=== PATIENT | male | born 1935 | race Caucasian/White ===

== ENCOUNTER 2016-08-16 14:55 | Emergency (ER) | payer OTHER ==
[~2016-08-16] VITALS: Ht 172.7 cm; Wt 108.1 kg
[~2016-08-16 14:55] MED LIST: ATOR-54 PO; BISA10SU38 PR; CALC0.2510 PO; CALC667C4 PO; CALCTAB13 PO; CLC100 PO; CYAN10005 PO; FOLI1TAB7 PO; FRRS300 PO; TAMS0.4C59 PO; [UNRECOGNIZED DRUG - CODE] PO; [UNRECOGNIZED DRUG - OTHER] PO
[2016-08-16 15:00] VITALS: Ht 172.7 cm; Wt 108.1 kg
[2016-08-16] MEDS ORDERED: MoRPHine SULFATE 4 MG/ML 1 ML CARP\\VIAL IM STA (16:03)
--- NOTE | 2016-08-16 17:05 | DIAGNOSTIC IMAGING REPORT ---
LEFT HUMERUS 5 VIEWS ROUTINE CLINICAL HISTORY: Left humeral pain status post trauma COMPARISON: None. DISCUSSION: No dislocation is visualized. There is impacted proximal ureteral neck fracture demonstrating 17 mm of displacement. IMPRESSION: Acute impacted humeral neck fracture demonstrating 17 mm of displacement. No dislocation identified. Electronically signed by: Severo Candelario M.D. 08/16/2016 5:04 PM Dictated Date/Time: 08/16/2016 5:03 PM
--- NOTE | 2016-08-16 17:07 | DIAGNOSTIC IMAGING REPORT ---
LEFT RIBS UNILATERAL WITH PA CHEST CLINICAL HISTORY: Left rib pain status post trauma COMPARISON STUDY: No previous studies for comparison. FINDINGS: There are postsurgical changes of a midline sternotomy. There is a right subclavian dual-chamber central venous pacemaker present. The heart is enlarged. No pneumothorax is visualized. There are fractures of left fifth and sixth ribs. IMPRESSION: 1. Left fifth and sixth rib fractures 2. No pneumothorax 3. Proximal left humeral fracture. Electronically signed by: Severo Candelario M.D. 08/16/2016 5:06 PM Dictated Date/Time: 08/16/2016 5:04 PM
[2016-08-16] MEDS ORDERED: MoRPHine SULFATE 10 MG/ML CARP/VIAL IM STA (17:12)
[2016-08-16] MEDS ORDERED: OXYC-106 PO ×2 (17:20→18:20)
--- NOTE | 2016-08-16 17:22 | EMERGENCY ROOM VISIT NOTE ---
History Report prepared by Ynes: Frankie Zuniga Under the Supervision of: Dr. Alvarez Rouse D.O. First contact with patient: 15:51 Chief Complaint: FALL Stated Complaint: FALL History of Present Illness The patient is an 81 year old male who presents to the Emergency Room with complaints of an acute fall that occurred earlier today. The patient tripped over a rug in [facility] and lost his balance. The patient has left face, rib, and arm pain s/p fall. The pain is worsened with movement. The patient did not lose consciousness. He denies any neck, abdominal pain, or leg pain.The patient had dialysis prior to the fall. His dialysis port is on the left side. The patient is not on any blood thinners. The patient is s/p CABG. Source of History: patient Onset: earlier today Position: other (global) Quality: other (fall) Timing: other (acute) Associated Symptoms: No LOC, No abdominal pain, No neck pain Review of Systems See HPI for pertinent positives & negatives. A total of 10 systems reviewed and were otherwise negative. Past Medical & Surgical Medical Problems: (1) Heart disease (2) HTN (hypertension) (3) Kidney disease (4) Kidney stone Surgical Problems: (1) S/P CABG (coronary artery bypass graft) Family History FHx: cancer FHx: heart disease FHx: hypertension FHx: kidney disease Social History Smoking Status: Former Smoker Alcohol Use: none Drug Use: none Marital Status: Housing Status: lives with significant other Occupation Status: retired Current/Historical Medications Scheduled Atorvastatin (Lipitor), 20 MG PO QPM Bisacodyl (Dulcolax), 1 SUPP OK DAILY PRN Bisacodyl (Dulcolax Unknown Dose), 1 TABLET PO BID Calcitriol (Rocaltrol Cap), 0.25 MCG PO DAILY Calcium Acetate (Phoslo 667 Mg), 2 TABLETS PO TIDM Calcium Carbonate-Vitamin D (Os-Kai 500 Plus D), 2,500 MG PO DAILY Cholecalciferol (Vitamin D3), Unknown Dose PO UD Cyanocobalamin (Vitamin B-12), 1,000 MCG PO DAILY Docusate Sodium (Colace *), 100 MG PO BID Ferrous Sulfate (Iron Supplement *), 325 MG PO DAILY Folic Acid (Folvite), 2 MG PO DAILY Tamsulosin Hcl (Flomax), 0.4 MG PO DAILY [Hlt10], 10 MG PO TID Scheduled PRN Oxycodone/Acetaminophen 10MG/325MG (Percocet 10MG/325MG), 1 TAB PO Q4H PRN for Pain Allergies Coded Allergies: No Known Allergies (Verified , `, 10/22/11) Physical Exam Vital Signs Date Time Temp Pulse Resp B/P Pulse Ox O2 Delivery O2 Flow Rate FiO2 08/16/16 16:07 78 12 159/66 98 Room Air 08/16/16 15:14 78 08/16/16 15:00 36.6 83 18 171/73 96 Room Air Physical Exam CONSTITUTIONAL/VITAL SIGNS: Reviewed / noted above. GENERAL: Non-toxic in appearance. INTEGUMENTARY: Warm, dry, and [place]. HEAD: Normocephalic. EYES: without scleral icterus or trauma. ENT/OROPHARYNX: clear and moist. LYMPHADENOPATHY/NECK: Is supple without lymphadenopathy or meningismus. RESPIRATORY: Lungs clear and equal. CARDIOVASCULAR: Regular rate and rhythm. GI/ABDOMEN: Soft and nontender. No organomegaly or pulsatile mass. No rebound or guarding. Normal bowel sounds. EXTREMITIES: Warm and well perfused. BACK: No CVA tenderness. NEUROLOGICAL: Intact without focal deficits. PSYCHIATRIC: normal affect. MUSCULOSKELETAL: Normally developed with good muscle tone. Tender to palpation over the left shoulder and left lower rib cage. Medical Decision & Procedures ER Provider Diagnostic Interpretation: X ray results and stated below per my interpretation and radiology interpretation. LEFT RIBS UNILATERAL WITH PA CHEST CLINICAL HISTORY: Left rib pain status post trauma COMPARISON STUDY: No previous studies for comparison. FINDINGS: There are postsurgical changes of a midline sternotomy. There is a right subclavian dual-chamber central venous pacemaker present. The heart is enlarged. No pneumothorax is visualized. There are fractures of left fifth and sixth ribs. IMPRESSION: 1. Left fifth and sixth rib fractures 2. No pneumothorax 3. Proximal left humeral fracture. Electronically signed by: Severo Candelario M.D. 08/16/2016 5:06 PM Dictated Date/Time: 08/16/2016 5:04 PM LEFT HUMERUS 5 VIEWS ROUTINE CLINICAL HISTORY: Left humeral pain status post trauma COMPARISON: None. DISCUSSION: No dislocation is visualized. There is impacted proximal ureteral neck fracture demonstrating 17 mm of displacement. IMPRESSION: Acute impacted humeral neck fracture demonstrating 17 mm of displacement. No dislocation identified. Electronically signed by: Severo Candelario M.D. 08/16/2016 5:04 PM Dictated Date/Time: 08/16/2016 5:03 PM Laboratory Results Test 08/16/16 15:51 Creatine Kinase MB Ratio (0-3.0) Laboratory results as stated above per my review. Medications Administered Medications (Trade) Dose Ordered Sig/Daniel Route Start Time Stop Time Status Last Admin Dose Admin Morphine Sulfate (MoRPHine SULFATE INJ) 4 mg NOW STAT IM 08/16/16 16:03 08/16/16 16:05 DC 08/16/16 16:10 4 MG Morphine Sulfate (MoRPHine SULFATE INJ) 6 mg NOW STAT IM 08/16/16 17:12 08/16/16 17:14 DC 08/16/16 17:28 6 MG ECG Indication: other (fall) Rate (beats per minute): 80 Rhythm: other (paced ventricular rhythm) Findings: no acute ischemic change, no ectopy ED Course 1555: Previous medical records were reviewed. The patient was evaluated in room C9. A complete history and physical examination was performed. 1603: Morphine Sulfate 4 mg IM. 1712: Morphine Sulfate 6 mg IM. 1740: Reassessed the patient. Discussed the findings with him. He verbalized understanding and agreement. The patient is ready for discharge. Medical Decision Differential includes close head injury, intracranial bleed, facial trauma, cervical spine trauma, chest and thoracic trauma, abdominal and intra-abdominal trauma, spine neurologic trauma, extremity trauma. This is an 81-year-old male who presents to the ED with a chief complaint of left arm shoulder and left anterior ribs injuries related to a fall. The patient states that he was walking into [facility] when he tripped on the rug causing himself to fall forward onto his left arm. He suffered a small abrasion to the left supraorbital area. Denies loss of consciousness. Denies lightheadedness or dizziness or presyncopal symptoms. The patient denies any other symptoms. Exam of the left arm reveals tenderness of the proximal humerus region with palpation and any movement. Distally he is neurovascularly intact. At the elbow joint and distal to this there is no pain or evidence of injury. The patient has a left arm fistula in place for dialysis. Exam of the chest wall reveals some tenderness to palpation the left lower ribs area. The patient was told results the test. He was treated with IM morphine. He was placed in a left arm/shoulder sling. The patient is felt to be stable for discharge and orthopedic outpatient follow-up. Percocet prescribed. Impression Primary Impression: Fall Additional Impressions: Multiple fractures of ribs, left side, initial encounter for closed fracture Fracture, humerus, anatomical neck Scribe Attestation The scribe's documentation has been prepared under my direction and personally reviewed by me in its entirety. I confirm that the note above accurately reflects all work, treatment, procedures, and medical decision making performed by me. Departure Information Dispostion Home / Self-Care Prescriptions Oxycodone/Acetaminophen 10MG/325MG (PERCOCET 10MG/325MG) Tab 1 TAB PO Q4H Y for Pain, #30 TAB Prov: Alvarez Rouse D.O. 08/16/16 Referrals Virgil Johnson M.D. (MEDICAL) (PCP) Yovany Rudolph M.D. Forms HOME CARE DOCUMENTATION FORM, IMPORTANT VISIT INFORMATION Patient Instructions ED Fx Rib, ED Fx Upper Ext, My [facility] Additional Instructions Your x-ray reveals a proximal humerus fracture near the shoulder. He also have a left fifth and sixth rib fracture. Percocet as prescribed. No driving within 6 hours of use. Do not take additional Tylenol while taking Percocet. Follow-up with orthopedics. Call tomorrow for appointment. Dr. Rudolph listed. Problem Qualifiers Primary Impression: Fall Encounter type: initial encounter Qualified Codes: W19.XXXA - Unspecified fall, initial encounter
[2016-08-16] MEDS ORDERED: TAMS0.4C38 PO (18:02)
[2016-08-16] MEDS ORDERED: CHOL1000 PO (18:04)
[2016-08-16 18:29] VITALS: BP 109/55; PULSE 83; TEMP 36.6; O2SAT 92
[2016-08-17] MEDS ORDERED: OXYC-106 PO (11:55)
[2016-09-07] MEDS ORDERED: DSY50 PO (14:27)
[2016-09-07] MEDS ORDERED: LPR25 PO (14:27)
[2016-09-07] MEDS ORDERED: TYL325X PO (14:27)
[2016-10-27] MEDS ORDERED: SODIENE PR (07:48)
[2016-10-27] MEDS ORDERED: BISA10SU38 PR (07:48)
[2016-10-27] MEDS ORDERED: ATOR-22 PO (07:48)
[2016-10-27] MEDS ORDERED: HYDR25SU20 PR (07:48)
[2016-10-27] MEDS ORDERED: MOML PO (07:48)
[2016-10-27] MEDS ORDERED: DICY10CA55 PO (07:48)
[2016-10-27] MEDS ORDERED: B-CO1CAP17 PO (07:48)
[2016-10-27] MEDS ORDERED: LOSA25TA18 PO (07:48)
[2016-10-27] MEDS ORDERED: TAMS0.4C38 PO (07:48)
[2016-10-27] MEDS ORDERED: PSYL48.59 PO (07:48)
[2016-10-27] MEDS ORDERED: ACET325T96 PO (07:48)
[2016-10-27] MEDS ORDERED: CALC667C4 PO (07:48)
[2016-10-27] MEDS ORDERED: TRAZ50TA35 PO (07:48)
[2016-10-27] MEDS ORDERED: CHOL1000 PO (07:48)
[2016-10-27] MEDS ORDERED: OXYC1TAB3 PO (07:48)
[2016-10-27] MEDS ORDERED: METO50TA7 PO (07:48)
[2016-10-27] MEDS ORDERED: SUPPLEMENT SHAKE PO (07:48)
[2017-01-06] MEDS ORDERED: METO1TAB31 PO (21:25)
== END 2016-08-16 18:33 | disposition home or self-care (01) ==
LOC: EDBD 14:55 → C.EDC 14:55
DX: S22.42XA Multiple fractures of ribs, left side, initial encounter for closed fracture (principal); S42.202A Unspecified fracture of upper end of left humerus, initial encounter for closed fracture; S00.81XA Abrasion of other part of head, initial encounter; W01.0XXA Fall on same level from slipping, tripping and stumbling without subsequent striking against object, initial encounter; Y92.89 Other specified places as the place of occurrence of the external cause; I10 Essential (primary) hypertension; I51.9 Heart disease, unspecified; Z87.442 Personal history of urinary calculi; Z95.1 Presence of aortocoronary bypass graft; Z87.891 Personal history of nicotine dependence; Z79.899 Other long term (current) drug therapy; Z80.9 Family history of malignant neoplasm, unspecified; Z82.49 Family history of ischemic heart disease and other diseases of the circulatory system; Z84.1 Family history of disorders of kidney and ureter

== ENCOUNTER 2016-08-17 11:32 | Inpatient (IN) | payer OTHER ==
[~2016-08-17] VITALS: Ht 175.3 cm; Wt 110.0 kg
[~2016-08-17 11:32] MED LIST changes: -BISA10SU38 PR; -CALC0.2510 PO; -CALCTAB13 PO; +CHOL1000 PO; -CLC100 PO; -CYAN10005 PO; -FOLI1TAB7 PO; -FRRS300 PO; +OXYC-106 PO; +TAMS0.4C38 PO; -TAMS0.4C59 PO; -[UNRECOGNIZED DRUG - CODE] PO; -[UNRECOGNIZED DRUG - OTHER] PO
[2016-08-17] MEDS ORDERED: OXYC-106 PO (11:55)
[2016-08-17] MEDS ORDERED: ONDANSETRON INJ 2 MG/ML 2 ML VIAL IV STA (12:19)
--- NOTE | 2016-08-17 12:33 | DIAGNOSTIC IMAGING REPORT ---
CHEST ONE VIEW PORTABLE CLINICAL HISTORY: EVALUATE ALTERED MENTAL STATUS/WEAKNESS mental status change COMPARISON STUDY: 01/08/2012 FINDINGS: Moderate stable cardia megaly. Intraosseous thoracic aorta unchanged. Interval removal of the left-sided PermCath. Permanent bipolar cardiac pacer in good position. Lungs are considered generally clear. Slight chronic fullness of pulmonary vasculature. IMPRESSION: Chronic and postoperative change. No acute process. Electronically signed by: Romaine Fine M.D. 08/17/2016 12:32 PM Dictated Date/Time: 08/17/2016 12:31 PM
[2016-08-17 13:00] LABS: BASO % 0.1 %; BASO ABS # 0.01 K/uL (0-0.2); COMPLETE YES; EOS % 4.5 %; HEMATOCRIT 31.3 % (42-52); IG% 0.1 %; LYMPH % 15.1 %; LYMPH ABS # 1.14 K/uL (1.2-3.4); MEAN CELL VOLUME 76.7 fL (80-100); MEAN CORPUSCULAR HEMOGLOBIN 24.3 pg (25-34); MEAN CORPUSCULAR HGB CONC 31.6 g/dl (32-36); MEAN PLATELET VOLUME 10.7 fL (7.4-10.4); MONO % 6.8 %; NEUT % 73.4 %; PLATELET COUNT 148 K/uL (130-400); RED BLOOD COUNT 4.08 M/uL (4.7-6.1); WHITE BLOOD COUNT 7.54 K/uL (4.8-10.8)
[2016-08-17 13:09] LABS: INR 1.1 (0.9-1.1); PARTIAL THROMBOPLASTIN RATIO 1.1
[2016-08-17 13:28] LABS: ALB/GLOB RATIO 0.9 (0.9-2); BUN/CREATININE RATIO 4.7 (10-20); CREATININE 4.5 mg/dl (0.60-1.40); POTASSIUM 4.2 mmol/L (3.5-5.1)
[2016-08-17] MEDS ORDERED: OXYCODONE/ACETAMINOPHEN 10/325MG TAB ONE (14:09)
--- NOTE | 2016-08-17 15:56 | ORTHOPEDIC CONSULTATION ---
DATE OF CONSULTATION: 08/17/2016 DATE OF CONSULTATION: 08/17/2016. CHIEF COMPLAINT: Left shoulder pain, rib pain. HISTORY OF PRESENT ILLNESS: Mr. Poon is a delightful gentleman I am meeting him for the first time. He is 81 years of age. He suffered a fall yesterday at [employer] [facility] [employer], suffered acute injury to his left shoulder and left left rib area. He evidently tripped over a rug and lost his balance. He suffered injury to the face, arm, and ribs with the fall. The pain has worsened over the course of time. He came into the Emergency Room yesterday, the date of injury, evaluated and treated last sent home. The patient got home late last night about 7 or 8 o'clock and it was determined he really could not function at home, it was difficult to be taken care of. He had significant pain. He was hard to mobilize. He was then brought back into the Emergency Room today the 17 of August and evaluated and treated. I have determined her after careful evaluation that he needs longterm, rehab, subacute type care. [facility]. PAST MEDICAL HISTORY: Positive for heart disease, obesity, hypertension, kidney disease, he is on dialysis. He has also had bypass surgery, coronary artery. FAMILY HISTORY: Carcinoma, hypertension. SOCIAL HISTORY: Nonsmoker, non-ETOH user. and lives with his . He is retired. Several of his sons are with him here today. SCHEDULED MEDICATIONS: Lipitor, Dulcolax, rocaltrol capsule which is Calcitriol, vitamin D, Colace, iron supplement, Flomax. Scheduled p.r.n. medications Percocet or oxycodone 1-2 every 4-6 hours for pain. Given to him from the Emergency Room yesterday. ALLERGIES: None known. REVIEW OF SYSTEMS: Denies any head injury, blurred vision, double vision, trauma. Denies any shortness of breath, chest pain. Denies nausea, vomiting, urgency, frequency, dysuria. His major review is his orthopedic musculoskeletal issue. PHYSICAL EXAMINATION: VITAL SIGNS: 149/66, respirations 18, pulse ox 98, pulse 78, 36.6 temperature. GENERAL: He is grossly alert, oriented and cooperative, pleasant. HEAD, EYES, EARS, NOSE, AND THROAT: Pupils react to light and accommodation. Nose and throat clear. No head trauma, no eye trauma. LUNGS: Clear per the nursing notes. I did not auscultate him here today. ABDOMEN: Soft, nontender. X-rays demonstrate a 2-part left proximal humerus fracture and some rib fractures on the left hand side. He also has post-surgical changes consistent with a midline sternotomy from his coronary artery bypass surgery. IMPRESSION: Delightful young gentleman, 81 years of age with some comorbidities, now with the trauma of the 5th and 6th rib fractures on the left, fortunately no pneumothorax, and a left proximal humerus fracture, 2-part injury. DISPOSITION: He is in the Emergency Room now. I think it is appropriate for him to be in the Emergency Room. He does not need surgical intervention, at least currently. I think this can be treated nonoperatively for a period of time, hopefully forever and go on to heal. I also recommend [facility] transfer for rehab and also dialysis. The patient is on dialysis and both can be covered at [facility]. Will follow him and then he should see in our office, Dr. Juanjo Jacinto for followup. I would recommend that followup to me in approximately 10 days.
--- NOTE | 2016-08-17 17:16 | EMERGENCY ROOM VISIT NOTE ---
History Report prepared by Ynes: Frankie Zuniga Under the Supervision of: Dr. Star Dodge M.D. First contact with patient: 11:47 Chief Complaint: ARM PAIN Stated Complaint: ARM PAIN History of Present Illness The patient is an 81 year old male who presents to the Emergency Room with complaints of persistent severe left arm pain since yesterday. The pain is significantly worsened with movement. The patient also has left rib pain. The patient was in the ED yesterday s/p fall diagnosed with a left humeral head fracture and two left rib fractures. 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 He fell after tripping over a rug in [facility] yesterday. The patient has not had any new falls. He came to the ED today because he cannot manage himself at home at this time. Source of History: patient Onset: yesterday Position: arm (left) Timing: other (persistent) Modifying Factors (Worsening): movement Associated Symptoms: + nausea Review of Systems See HPI for pertinent positives & negatives. A total of 10 systems reviewed and were otherwise negative. Past Medical & Surgical Medical Problems: (1) Ambulatory dysfunction (2) Heart disease (3) HTN (hypertension) (4) Kidney disease (5) Kidney stone Surgical Problems: (1) S/P CABG (coronary artery bypass graft) Family History FHx: cancer FHx: heart disease FHx: hypertension FHx: kidney disease Social History Smoking Status: Never Smoker Alcohol Use: none Drug Use: none Marital Status: Housing Status: lives with significant other Occupation Status: retired Current/Historical Medications Scheduled Atorvastatin (Lipitor), 20 MG PO QPM Calcium Acetate (Phoslo 667 Mg), 2 TABLETS PO TIDM Cholecalciferol (Vitamin D3), Unknown Dose PO UD Tamsulosin Hcl (Flomax), 0.4 MG PO DAILY Scheduled PRN Oxycodone/Acetaminophen 10MG/325MG (Percocet 10MG/325MG), 1 TAB PO Q4H PRN for Pain Allergies Coded Allergies: No Known Allergies (Verified , `, 10/22/11) Physical Exam Vital Signs Date Time Temp Pulse Resp B/P Pulse Ox O2 Delivery O2 Flow Rate FiO2 08/17/16 15:22 86 15 08/17/16 15:17 86 19 08/17/16 15:12 83 13 08/17/16 15:07 87 16 08/17/16 15:02 84 18 92 08/17/16 14:57 83 11 95 08/17/16 14:52 81 18 93 08/17/16 14:47 83 17 85 08/17/16 14:42 81 15 97 08/17/16 14:37 82 15 84 08/17/16 14:32 82 15 95 08/17/16 14:27 82 16 85 08/17/16 14:22 86 16 86 08/17/16 14:17 83 14 92 08/17/16 14:12 86 20 87 08/17/16 14:07 83 20 90 08/17/16 14:02 83 18 90 08/17/16 13:57 83 16 94 08/17/16 13:52 86 20 87 08/17/16 13:47 84 17 90 08/17/16 13:43 128/53 08/17/16 13:42 81 18 92 08/17/16 13:37 84 15 90 08/17/16 13:32 84 21 93 08/17/16 13:27 92 18 08/17/16 13:22 93 22 08/17/16 13:21 111/59 08/17/16 13:17 90 17 08/17/16 13:15 118/64 08/17/16 13:12 78 17 93 08/17/16 13:10 110/73 08/17/16 13:07 79 15 92 08/17/16 13:02 82 18 87 08/17/16 12:57 81 17 89 08/17/16 12:52 96 Room Air 08/17/16 12:52 81 19 84 08/17/16 12:50 80 08/17/16 12:47 80 17 91 08/17/16 11:44 37.3 87 18 125/63 96 Room Air 08/17/16 11:38 125/63 Physical Exam GENERAL: Patient is in no acute distress. HEENT: No acute trauma, normocephalic atraumatic, mucous membranes moist, no nasal congestion, no scleral icterus. NECK: No stridor, no adenopathy, no meningismus, trachea is midline. LUNGS: Clear to auscultation bilaterally, no wheeze, no rhonchi, breath sounds equal. HEART: 3/6 systolic murmur with a regular rate and rhythm. ABDOMEN: Soft, nontender, bowel sounds positive, no hernias, no peritonitis. EXTREMITIES: No evidence for lower extremity fracture, left upper extremity is in a sling, tender over the left shoulder. NEUROLOGIC: Oriented x 3, no acute motor or sensory deficits, no focal weakness. SKIN: No rash, no jaundice, no diaphoresis. Medical Decision & Procedures ER Provider Diagnostic Interpretation: X-ray results as stated below per interpretation by me and the radiologist: CHEST ONE VIEW PORTABLE CLINICAL HISTORY: EVALUATE ALTERED MENTAL STATUS/WEAKNESS mental status change COMPARISON STUDY: 01/08/2012 FINDINGS: Moderate stable cardia megaly. Intraosseous thoracic aorta unchanged. Interval removal of the left-sided PermCath. Permanent bipolar cardiac pacer in good position. Lungs are considered generally clear. Slight chronic fullness of pulmonary vasculature. IMPRESSION: Chronic and postoperative change. No acute process. Electronically signed by: Romaine Fine M.D. 08/17/2016 12:32 PM Dictated Date/Time: 08/17/2016 12:31 PM Laboratory Results 08/17/16 12:50 Red Blood Count 4.08, Mean Corpuscular Volume 76.7, Mean Corpuscular Hemoglobin 24.3, Mean Corpuscular Hemoglobin Concent 31.6, Mean Platelet Volume 10.7, Neutrophils (%) (Auto) 73.4, Lymphocytes (%) (Auto) 15.1, Monocytes (%) (Auto) 6.8, Eosinophils (%) (Auto) 4.5, Basophils (%) (Auto) 0.1, Neutrophils # (Auto) 5.53, Lymphocytes # (Auto) 1.14, Monocytes # (Auto) 0.51, Eosinophils # (Auto) 0.34, Basophils # (Auto) 0.01 08/17/16 12:50 Test 08/17/16 12:50 08/17/16 15:09 White Blood Count 7.54 K/uL (4.8-10.8) Red Blood Count 4.08 M/uL (4.7-6.1) Hemoglobin 9.9 g/dL (14.0-18.0) Hematocrit 31.3 % (42-52) Mean Corpuscular Volume 76.7 fL (80-100) Mean Corpuscular Hemoglobin 24.3 pg (25-34) Mean Corpuscular Hemoglobin Concent 31.6 g/dl (32-36) Platelet Count 148 K/uL (130-400) Mean Platelet Volume 10.7 fL (7.4-10.4) Neutrophils (%) (Auto) 73.4 % Lymphocytes (%) (Auto) 15.1 % Monocytes (%) (Auto) 6.8 % Eosinophils (%) (Auto) 4.5 % Basophils (%) (Auto) 0.1 % Neutrophils # (Auto) 5.53 K/uL (1.4-6.5) Lymphocytes # (Auto) 1.14 K/uL (1.2-3.4) Monocytes # (Auto) 0.51 K/uL (0.11-0.59) Eosinophils # (Auto) 0.34 K/uL (0-0.5) Basophils # (Auto) 0.01 K/uL (0-0.2) RDW Standard Deviation 44.3 fL (36.4-46.3) RDW Coefficient of Variation 15.9 % (11.5-14.5) Immature Granulocyte % (Auto) 0.1 % Immature Granulocyte # (Auto) 0.01 K/uL (0.00-0.02) Prothrombin Time 12.0 SECONDS (9.0-12.0) Prothromb Time International Ratio 1.1 (0.9-1.1) Activated Partial Thromboplast Time 28.0 SECONDS (21.0-31.0) Partial Thromboplastin Ratio 1.1 Anion Gap 9.0 mmol/L (3-11) Est Creatinine Clear Calc Drug Dose 15.2 ml/min Estimated GFR () 13.1 Estimated GFR (Non- 11.3 BUN/Creatinine Ratio 4.7 (10-20) Calcium Level 8.0 mg/dl (8.5-10.1) Total Bilirubin 0.6 mg/dl (0.2-1) Aspartate Amino Transf (AST/SGOT) 17 U/L (15-37) Alanine Aminotransferase (ALT/SGPT) 35 U/L (12-78) Alkaline Phosphatase 102 U/L (45-117) Total Creatine Kinase 96 U/L (39-308) Total Protein 6.8 gm/dl (6.4-8.2) Albumin 3.3 gm/dl (3.4-5.0) Globulin 3.5 gm/dl (2.5-4.0) Albumin/Globulin Ratio 0.9 (0.9-2) Troponin I 0.436 ng/ml (0-0.045) Laboratory results reviewed by me. Medications Administered Medications (Trade) Dose Ordered Sig/Daniel Route Start Time Stop Time Status Last Admin Dose Admin Ondansetron HCl (Zofran Inj) 4 mg NOW STAT IV 08/17/16 12:19 08/17/16 12:20 DC 08/17/16 13:25 4 MG Oxycodone/ Acetaminophen (Percocet 10-325MG Tab) 1 tab STK-MED ONCE .ROUTE 08/17/16 14:09 08/17/16 14:11 DC 08/17/16 14:12 1 TAB ECG Indication: other (rib pain) Rate (beats per minute): 80 Rhythm: sinus rhythm Findings: 1st degree AV block, RBBB, other (LVH, old inferior infarct.) Change: No specific changes compared to EKG dated 04 January 2012. The patient's pacemaker is no longer active when compared to EKG from yesterday. ED Course 1145: The patient was evaluated by my medical student. 1112: The patient was evaluated in room C10. A complete history and physical exam was performed. 1219: Zofran 4 mg IV. 1349: Spoke with Dr. Sterling, Orthopedic Surgeon. An Orthopedists will evaluate the patient. 1525: The patient was evaluated by Dr. Sawyer, Orthopedic Surgeon. He says the shoulder is non-operable. 1534: Discussed the case with Dr. Cardenas, [place] [facility]ist. The patient will be evaluated. 1537: Updated the patient. He verbalized understanding and agreement of the treatment plan. Medical Decision Differential diagnosis includes debilitation, electrolyte imbalance, anemia, dehydration, pneumothorax. There is no leukocytosis. The patient is anemic but this is baseline looking back at previous testing. Renal panel testing shows the need for dialysis, no significant electrolyte abnormalities that require correction. No hepatitis. EKG shows a sinus rhythm, no acute ischemia. Cardiac enzyme testing 2 is elevated-this may be chronic as his numbers have been higher in the past. He does not have chest pain. Chest x-ray shows no pneumothorax or pulmonary contusion, there is no CHF. The patient received IV Zofran, he was given a dose of oral Percocet. Arrangements were being made for him to be transferred to [facility] for rehabilitation however, because of insurance issues, a hospital stay will be required. I did speak to the patient and the oil field caser. The on-call hospitalist was consulted. In short, the patient does need rehabilitation, he is in no condition to be discharged home. He is not functioning well at home. Consults Time Called: 1340 Consulting Physician: Dr. Sterling, Orthopedic Surgeon Returned Call: [phone]: Spoke with Dr. Sterling, Orthopedic Surgeon. An Orthopedists will evaluate the patient. Additional Consults: Time Called: 1525 Consulted Physician: Khang Briceno Hospitalist Returned Call: [phone] Additional Comments: 1534: [facility] The patient will be evaluated. Impression Primary Impression: Fracture of proximal end of left humerus Additional Impressions: Multiple fractures of ribs of left side Weakness Scribe Attestation The scribe's documentation has been prepared under my direction and personally reviewed by me in its entirety. I confirm that the note above accurately reflects all work, treatment, procedures, and medical decision making performed by me. Departure Information Dispostion Being Evaluated By Hospitalist Referrals Virgil Johnson M.D. (MEDICAL) (PCP) Patient Instructions My [facility] Problem Qualifiers
--- NOTE | 2016-08-17 17:27 | HISTORY & PHYSICAL EXAMINATION ---
DATE OF ADMISSION: 08/17/2016 HISTORY OF PRESENT ILLNESS: The patient is a very pleasant 81-year-old male with a history of end-stage renal disease, on hemodialysis, history of CAD status post CABG, status post pacemaker placement in 2007. The patient's other problems noted below, presenting with ambulatory dysfunction and left arm pain. The patient follows with Dr. Johnson for primary care. The patient is a very pleasant 81-year-old male who was apparently at his baseline state of health until yesterday. He was walking at [facility] and unfortunately tripped over a folded apollo landing mostly on his left side. The patient was unable to get up because of pain. He was brought into the Emergency Room yesterday 08/16/2016 for evaluation. At the ED, he was found to have a left acute impacted humeral neck fracture with displacement, no dislocation identified. Also, rib x-ray showing left 5th and 6th rib fractures, no pneumothorax, proximal left humeral fracture. He was discharged home with p.r.n. Percocet. At home, he did not do well and was having difficulty ambulating and also has increasing arm pain. He then re-presented to the ER for reevaluation. At the ED, he was received with stable blood pressure and other vital signs. Chest x-ray showed chronic and postoperative changes, no acute process. He was referred to [facility] but was not successful today, hence admission to the hospital. At this time, it is recommended for possible transition to rehabilitation in the next day or so. Also, Dr. Sawyer from ortho service has evaluated the patient in the ER and at this point is not recommending surgical intervention. In the meantime, he will remain on the sling for his arm. On my exam, the patient is resting in bed, comfortable after receiving some Percocet. Denies having any chest pain, shortness of breath, palpitations, nausea, vomiting, dizziness. No symptoms as well prior to falling and after falling. He says that he just tripped over the rug. On my exam, he also mentions that he just cannot seem to get up and stand up because of overall weakness. Otherwise, no other symptoms. REVIEW OF SYSTEMS: Ten systems reviewed and negative except for the ones mentioned above. PAST MEDICAL HISTORY: History of end-stage renal disease, on hemodialysis, chronic anemia, hypertension, obesity, coronary artery disease, status post CABG, status post pacemaker placement, aortic valve replacement, dyslipidemia, BPH. MEDICATIONS: He takes Flomax 0.4 mg p.o. daily, atorvastatin 40 mg daily, vitamin D 50,000 units, unknown interaction; calcium acetate 667 two capsules by mouth t.i.d. with meals, nitroglycerin as needed. PAST SURGICAL HISTORY: Aortic valve replacement with CABG in 2007, colonoscopy 2008, pacemaker placement on 2011, removal of stomal catheter in 2011, cataract removal, tonsils removal, inguinal hernia repair. PERSONAL AND SOCIAL HISTORY: He is . Denies smoking, alcohol or drug use. FAMILY HISTORY: Brother, heart disease and hypertension. Father, hypertension. Mother, stroke. PHYSICAL EXAMINATION: VITAL SIGNS: Blood pressure is 122/53, pulse rate of 84, respiratory rate 14, temperature is afebrile. GENERAL: The patient is awake, alert, oriented x3, not in distress, speaks in sentences. No accessory muscle use. HEAD AND NECK: Atraumatic and normocephalic head. He has normal pupils. Full EOMs. No icterus. Rosman conjunctivae. ENT: Grossly normal. NECK: No JVD, no lymphadenopathy or thyromegaly. HEART: Normal rate. Regular rhythm. Good S1, S2. No murmurs. LUNGS: Clear breath sounds bilaterally. No rales or wheezes. ABDOMEN: Nondistended, normal bowel sounds, soft, nontender. EXTREMITIES: Positive sling on the left arm with hematoma on the left upper arm. Can move all fingers. Right arm essentially normal. Lower extremity is essentially normal on my exam, no swelling or erythema. Has good range of motion in all extremities. NEUROLOGIC: No gross focal motor or sensory deficits. LABS: White count 7.5, hemoglobin of 10.9, platelet count is 148. Sodium 139, potassium is 4.2, creatinine is 4.5. Troponins 0.45, becoming 0.43. Chest x-ray, no acute process. EKG showing a heart rate of 80, sinus rhythm with first-degree AV block. ASSESSMENT AND PLAN: This is a very pleasant 81-year-old male with a history of end-stage renal disease, on hemodialysis, other problems noted below, presenting with persistent left arm pain and ambulatory dysfunction status post mechanical fall. 1. Status post mechanical fall resulting to a left humeral fracture and left rib fractures. The patient currently is experiencing significant pain on the left arm. Orthopedic surgery has been consulted. No surgical intervention at this point. Continue conservative management with p.r.n. pain medicines, sling, PT, OT and disposition to rehab in the next day or so. We will place ice packs for now on the left arm and incentive spirometry for the rib fractures. 2. Ambulatory dysfunction, possibly secondary to intake of narcotics versus hip fracture. Will rule out a hip fracture with hip x-rays and continue PT and OT. 3. Troponin elevation, likely from end-stage renal disease, no cardiac symptoms. EKG does not show any signs of acute infarcts. We will check an echocardiogram, serial cardiac markers and a pacemaker check. 4. Status post mechanical fall. Management per #1 and #2. 5. End-stage renal disease, will consult nephrology for possible hemodialysis tomorrow prior to going to rehabilitation. 5. History of coronary artery disease and coronary artery bypass graft. Management per noted above. 6. Dyslipidemia. Continue statin. 7. Benign prostatic hypertrophy. Continue tamsulosin. 8. Deep venous thrombosis prophylaxis. Will be on sequential compression device for now. 9. Code status: Full code according to patient. 10. Disposition, will need case management consultation to transition to rehabilitation. 11. Follows with Dr. Johnson for primary care and Dr. Call for nephrology and will need to follow up with orthopedic surgeon Dr. Sawyer in about 10 days according to recommendations. MTDD
[2016-08-17 17:39] VITALS: BP 127/64; PULSE 88; TEMP 37.1; O2SAT 98; Ht 175.3 cm; Wt 110.0 kg
[2016-08-17] MEDS ORDERED: ALBUT/IPRATROP 3MG/0.5MG NEB 3 ML VIAL INH STA (19:49)
--- NOTE | 2016-08-17 19:49 | Nephrology Consultation ---
Nephrology Consultation Date of Consultation: Aug 17, 2016. Attending Physician: Dr Altamirano Requesting Physician: Dr Cardenas Reason for Consultation: ESRD History of Present Illness 81 year old male w/ ESRD, CAD, HTN admitted for optimization of nonoperative mgt of L humeral fracture and evaluation of mildly elevated troponin. He was walking at the store yesterday and fell, leading to humeral and 2 rib fractures , none of which is for surgical intervention. He was evaluated in ER yesterday and sent home for outpt ortho follow up; however it quickly became clear that he could not manage at home. He dialyzes MWF via LUE avf at [facility] under the care of Dr Call. No recent missed dialysis treatments. It was not immediately feasible to admit him directly to rehab; also on reassessment today noted to have mild troponin elevation with no chest pain or dyspnea. He is to have selective cardiac testing d/t mildly elevated troponin. Pt is adherent w/ HD txs. He has not had any recent illnesses but does endorse some wheezing for the past few weeks, worse at night by his report, without dyspnea or cough and apparently improved w/ HD. Past Medical/Surgical History Medical Problems: (1) Fracture of proximal end of left humerus Status: Acute (2) Fracture, humerus, anatomical neck Status: Acute (3) Multiple fractures of ribs of left side Status: Acute (4) Multiple fractures of ribs, left side, initial encounter for closed fracture Status: Acute (5) Weakness Status: Acute -ESRD on HD -chronic anemia -hypertension -coronary artery disease status post 2007 CABG, status post 2011 pacemaker placement and aortic valve replacement -dyslipidemia -prostatic hypertrophy -s/p inguinal hernia repair -s/p cataract and tonsil removal Family History FHx: cancer FHx: heart disease FHx: hypertension FHx: kidney disease Social History Smoking Status: Former Smoker Alcohol Use: none Drug Use: none Marital Status: Housing Status: lives with significant other Occupation Status: retired Allergies Coded Allergies: No Known Allergies (Verified , `, 10/22/11) Medications Current Inpatient Medications Medications (Trade) Dose Ordered Sig/Daniel Route Start Time Stop Time Status Last Admin Dose Admin Oxycodone/ Acetaminophen (Percocet 5-325mg Tab) 1 tab Q6H PRN PO 08/17/16 16:30 08/31/16 16:29 UNV Tramadol HCl (Ultram Tab) 50 mg Q6H PRN PO 08/17/16 16:30 09/16/16 16:29 UNV Atorvastatin Calcium (Lipitor Tab) 20 mg QPM PO 08/17/16 21:00 09/16/16 20:59 UNV Calcium Acetate (Phoslo Cap) 667 mg UD PO 08/17/16 16:30 09/16/16 16:29 UNV Tamsulosin HCl (Flomax Cap) 0.4 mg DAILY PO 08/18/16 09:00 09/17/16 08:59 UNV Acetaminophen (Tylenol Tab) 650 mg Q4H PRN PO 08/17/16 16:45 09/16/16 16:44 UNV Ondansetron HCl (Zofran Inj) 4 mg Q6H PRN IV 08/17/16 16:45 09/16/16 16:44 UNV Home Meds and Scripts Medications Dose Route/Sig Max Daily Dose Days Date Category Percocet 10MG/325MG (Oxycodone/Acetaminophen) Tab 1 Tab PO Q4H PRN 08/17/16 Reported Vitamin D3 (Cholecalciferol) 1,000 Unit Tab Unknown Dose PO UD 90 08/16/16 Reported Flomax (Tamsulosin Hcl) 0.4 Mg Cap 0.4 Mg PO DAILY 08/16/16 Reported Phoslo 667 Mg (Calcium Acetate) 667 Mg Cap 2 Tablets PO TIDM 10/31/11 Reported Lipitor (Atorvastatin) 20 Mg Tab 20 Mg PO QPM 10/22/11 Reported Review of Systems Constitutional: No fatigue, No fever, No weakness Eyes: No worsening of vision ENT: No hearing loss Respiratory: + see HPI, + wheezing, No cough, No shortness of breath Cardiac: No chest pain (except pleuritic chest pain after rib frx), No edema, No palpitations Abdomen: + problem reported (poor appetite), No diarrhea, No nausea, No pain, No vomiting Musculoskeletal: + see HPI (L arm marked pain) Male : + problem reported (voids daily; no change in voiding habits) Neuro: No memory loss, No weakness Psych: No anxiety, No depression symptoms Heme: No abnormal bleeding/bruising Skin: No rash Physical Exam Date Time Temp Pulse Resp B/P Pulse Ox O2 Delivery O2 Flow Rate FiO2 08/17/16 17:39 37.1 88 15 127/64 98 Room Air 08/17/16 17:15 37.3 86 16 145/66 90 08/17/16 16:58 16 145/66 90 Room Air 08/17/16 15:22 86 15 08/17/16 15:17 86 19 08/17/16 15:12 83 13 08/17/16 15:07 87 16 08/17/16 15:02 84 18 92 08/17/16 14:57 83 11 95 08/17/16 14:52 81 18 93 08/17/16 14:47 83 17 85 08/17/16 14:42 81 15 97 08/17/16 14:37 82 15 84 08/17/16 14:32 82 15 95 08/17/16 14:27 82 16 85 08/17/16 14:22 86 16 86 08/17/16 14:17 83 14 92 08/17/16 14:12 86 20 87 08/17/16 14:07 83 20 90 08/17/16 14:02 83 18 90 08/17/16 13:57 83 16 94 08/17/16 13:52 86 20 87 08/17/16 13:47 84 17 90 08/17/16 13:43 128/53 08/17/16 13:42 81 18 92 08/17/16 13:37 84 15 90 08/17/16 13:32 84 21 93 08/17/16 13:27 92 18 08/17/16 13:22 93 22 08/17/16 13:21 111/59 08/17/16 13:17 90 17 08/17/16 13:15 118/64 08/17/16 13:12 78 17 93 08/17/16 13:10 110/73 08/17/16 13:07 79 15 92 08/17/16 13:02 82 18 87 08/17/16 12:57 81 17 89 08/17/16 12:52 96 Room Air 08/17/16 12:52 81 19 84 08/17/16 12:50 80 08/17/16 12:47 80 17 91 08/17/16 11:44 37.3 87 18 125/63 96 Room Air 08/17/16 11:38 125/63 General Appearance: WD/WN, no apparent distress, + obese, + pertinent finding ( on RA) Eyes: EOMI ENT: hearing grossly normal Neck: supple Respiratory/Chest: + decreased breath sounds, + wheezing (scattered expiratory wheezes and primarily upper airway sounds) Cardiovascular: regular rate, rhythm, no edema Abdomen: normal bowel sounds, non tender, soft Extremities: + pertinent finding (LUE AVF + t/b; L arm in sling) Neurologic/Psych: alert, normal mood/affect, oriented x 3 Skin: no jaundice, warm/dry, no rash Diagnostics Last 24 Hours Test 08/17/16 12:50 08/17/16 15:09 White Blood Count 7.54 K/uL Red Blood Count 4.08 M/uL Hemoglobin 9.9 g/dL Hematocrit 31.3 % Mean Corpuscular Volume 76.7 fL Mean Corpuscular Hemoglobin 24.3 pg Mean Corpuscular Hemoglobin Concent 31.6 g/dl Platelet Count 148 K/uL Mean Platelet Volume 10.7 fL Neutrophils (%) (Auto) 73.4 % Lymphocytes (%) (Auto) 15.1 % Monocytes (%) (Auto) 6.8 % Eosinophils (%) (Auto) 4.5 % Basophils (%) (Auto) 0.1 % Neutrophils # (Auto) 5.53 K/uL Lymphocytes # (Auto) 1.14 K/uL Monocytes # (Auto) 0.51 K/uL Eosinophils # (Auto) 0.34 K/uL Basophils # (Auto) 0.01 K/uL RDW Standard Deviation 44.3 fL RDW Coefficient of Variation 15.9 % Immature Granulocyte % (Auto) 0.1 % Immature Granulocyte # (Auto) 0.01 K/uL Prothrombin Time 12.0 SECONDS Prothromb Time International Ratio 1.1 Activated Partial Thromboplast Time 28.0 SECONDS Partial Thromboplastin Ratio 1.1 Sodium Level 139 mmol/L Potassium Level 4.2 mmol/L Chloride Level 101 mmol/L Carbon Dioxide Level 29 mmol/L Anion Gap 9.0 mmol/L Blood Urea Nitrogen 21 mg/dl Creatinine 4.50 mg/dl Est Creatinine Clear Calc Drug Dose 15.2 ml/min Estimated GFR () 13.1 Estimated GFR (Non- 11.3 BUN/Creatinine Ratio 4.7 Random Glucose 115 mg/dl Calcium Level 8.0 mg/dl Total Bilirubin 0.6 mg/dl Aspartate Amino Transf (AST/SGOT) 17 U/L Alanine Aminotransferase (ALT/SGPT) 35 U/L Alkaline Phosphatase 102 U/L Total Creatine Kinase 96 U/L Troponin I 0.458 ng/ml 0.436 ng/ml Total Protein 6.8 gm/dl Albumin 3.3 gm/dl Globulin 3.5 gm/dl Albumin/Globulin Ratio 0.9 Diagnostic Radiology: no acute cardiopulmonary process EKG: NSR; RBBB; LAFB; LVH; unchanged from prior except no longer paced Assessment & Plan 81 y/o M w/ ESRD on MWF HD admitted as bridge to rehab after fall yesterday resulting in L impacted humeral fracture and L 5/6th rib frxs for which he is not a surgical candidate. 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
[2016-08-17 20:22] VITALS: PULSE 75; O2SAT 95
[2016-08-17] MEDS: ATORVASTATIN 20 MG TAB PO SCH (20:31)
--- NOTE | 2016-08-17 21:07 | DIAGNOSTIC IMAGING REPORT ---
PELVIS/BILATERAL HIP 2 VIEWS CLINICAL HISTORY: r/o fracture. Bilateral hip pain. COMPARISON STUDY: None. FINDINGS: The bones are osteopenic. No acute fracture or dislocation within the pelvis or hips. The sacrum appears intact. Vascular calcifications are noted. Moderate osteoarthritis within the bilateral hips. IMPRESSION: Diffuse osteopenia. No acute fracture or dislocation within the pelvis or hips. Electronically signed by: Osvaldo Cuevas M.D. 08/17/2016 9:05 PM Dictated Date/Time: 08/17/2016 9:02 PM
[2016-08-17] MEDS: OXYCODONE/ACETAMINOPHEN 5-325 TAB PO PRN (21:30)
[2016-08-17 23:17] VITALS: BP 107/66; PULSE 65; TEMP 36.7; O2SAT 91
[2016-08-17] MEDS: TRAMADOL HCL 50 MG TAB PO PRN (23:54)
[2016-08-18] VITALS (23 sets, daily range): BP systolic 73–123; BP diastolic 46–67; PULSE 45–93; TEMP 36.6–37; O2SAT 86–97
[2016-08-18] MEDS ORDERED: HYDROmorphone INJ 1 MG/ML SYR IV PRN (01:30)
[2016-08-18] MEDS ORDERED: HYDROmorphone INJ 1 MG/ML SYR ONE (01:47)
[2016-08-18 02:41] LABS: CKMB/CK RATIO 2.6 (0-3.0)
[2016-08-18] MEDS: CALCIUM ACETATE 667MG GELCAP PO SCH ×3 (07:48→18:42)
[2016-08-18] MEDS: TAMSULOSIN HCL 0.4 MG CAP PO SCH (07:49)
[2016-08-18] MEDS: OXYCODONE/ACETAMINOPHEN 5-325 TAB PO PRN ×2 (07:50→17:27)
[2016-08-18] MEDS ORDERED: EPOETIN ALFA 10,000 UNITS/ML VIAL IV. ONE (08:00)
[2016-08-18] MEDS ORDERED: EPOETIN ALFA INJ 12,000 UNITS in SYRINGE 0 ML IV. SCH (08:00)
[2016-08-18] MEDS ORDERED: HEPARIN SOD (PORCINE) 1000 UNIT/ML 10 ML VIAL IV SCH ×2 (08:00→09:00)
--- NOTE | 2016-08-18 10:45 | Dialysis Progress Note ---
Nephrology Dialysis Note Date of Service: Aug 18, 2016. Subjective AVF cannulated today w/o incident; precautions taken to control pain and not rotate arm; no n/v, no dypsnea; some lower bp w/ pain meds on board Objective Date Time Temp Pulse Resp B/P Pulse Ox O2 Delivery O2 Flow Rate FiO2 08/18/16 10:30 91 73/46 08/18/16 10:15 91 77/48 08/18/16 10:00 92 86/55 08/18/16 09:45 90 84/57 08/18/16 09:30 90 79/48 08/18/16 09:15 92 111/61 08/18/16 08:55 59 121/57 08/18/16 08:14 89 Room Air 08/18/16 07:54 98/57 93 Room Air 08/18/16 07:51 36.6 64 22 84/54 89 Room Air 08/18/16 07:43 Room Air 08/18/16 06:31 36.7 64 18 109/64 91 Room Air 08/17/16 23:17 36.7 65 18 107/66 91 Room Air 08/17/16 23:15 Room Air 08/17/16 20:22 75 18 95 Room Air 08/17/16 20:00 Room Air 08/17/16 17:39 37.1 88 15 127/64 98 Room Air 08/17/16 17:15 37.3 86 16 145/66 90 08/17/16 16:58 16 145/66 90 Room Air 08/17/16 15:22 86 15 08/17/16 15:17 86 19 08/17/16 15:12 83 13 08/17/16 15:07 87 16 08/17/16 15:02 84 18 92 08/17/16 14:57 83 11 95 08/17/16 14:52 81 18 93 08/17/16 14:47 83 17 85 08/17/16 14:42 81 15 97 08/17/16 14:37 82 15 84 08/17/16 14:32 82 15 95 08/17/16 14:27 82 16 85 08/17/16 14:22 86 16 86 08/17/16 14:17 83 14 92 08/17/16 14:12 86 20 87 08/17/16 14:07 83 20 90 08/17/16 14:02 83 18 90 08/17/16 13:57 83 16 94 08/17/16 13:52 86 20 87 08/17/16 13:47 84 17 90 08/17/16 13:43 128/53 08/17/16 13:42 81 18 92 08/17/16 13:37 84 15 90 08/17/16 13:32 84 21 93 08/17/16 13:27 92 18 08/17/16 13:22 93 22 08/17/16 13:21 111/59 08/17/16 13:17 90 17 08/17/16 13:15 118/64 08/17/16 13:12 78 17 93 08/17/16 13:10 110/73 08/17/16 13:07 79 15 92 08/17/16 13:02 82 18 87 08/17/16 12:57 81 17 89 08/17/16 12:52 96 Room Air 08/17/16 12:52 81 19 84 08/17/16 12:50 80 08/17/16 12:47 80 17 91 08/17/16 11:44 37.3 87 18 125/63 96 Room Air 08/17/16 11:38 125/63 Physical Exam: General Appearance: WD/WN, no apparent distress, + obese, + pertinent finding ( on RA) Eyes: EOMI ENT: hearing grossly normal Neck: supple Respiratory/Chest: + decreased breath sounds, no wheezes this am Cardiovascular: regularly spaced beats in 50s, no edema Abdomen: normal bowel sounds, non tender, soft Extremities: + pertinent finding (LUE AVF + t/b; L arm in HD not in sling) Neurologic/Psych: alert, normal mood/affect, oriented x 3, lethargic/dosing but wakens Skin: no jaundice, warm/dry, no rash Current Inpatient Medications Medications (Trade) Dose Ordered Sig/Daniel Route Start Time Stop Time Status Last Admin Dose Admin Oxycodone/ Acetaminophen (Percocet 5-325mg Tab) 1 tab Q6H PRN PO 08/17/16 16:30 08/31/16 16:29 08/18/16 07:50 1 TAB Tramadol HCl (Ultram Tab) 50 mg Q6H PRN PO 08/17/16 16:30 09/16/16 16:29 08/17/16 23:54 50 MG Atorvastatin Calcium (Lipitor Tab) 20 mg QPM PO 08/17/16 21:00 09/16/16 20:59 08/17/16 20:31 20 MG Calcium Acetate (Phoslo Cap) 1,334 mg TIDM PO 08/18/16 08:30 09/17/16 08:29 08/18/16 07:48 1,334 MG Tamsulosin HCl (Flomax Cap) 0.4 mg DAILY PO 08/18/16 09:00 09/17/16 08:59 08/18/16 07:49 0.4 MG Acetaminophen (Tylenol Tab) 650 mg Q4H PRN PO 08/17/16 16:45 09/16/16 16:44 Ondansetron HCl (Zofran Inj) 4 mg Q6H PRN IV 08/17/16 16:45 09/16/16 16:44 Albuterol/ Ipratropium (Duoneb) 3 ml Q2H PRN INH 08/17/16 19:45 09/16/16 19:44 Heparin Sodium (Porcine) (Heparin Iv Bolus) 1,000 unit TODAY@0800 IV 08/18/16 08:00 08/18/16 16:00 Heparin Sodium (Porcine) 400 unit 400 unit TODAY@0900,1000,1100 IV 08/18/16 09:00 08/18/16 16:00 Epoetin Andrei/ Syringe (Procrit Inj/ Syringe) 0.6 ml @ 1 mls/min TODAY@0800 IV. 08/18/16 08:00 08/18/16 16:00 Hydromorphone HCl (Dilaudid Inj) 0.5 mg Q3H PRN IV 08/18/16 01:30 09/01/16 01:29 Last 24 Hours Test 08/17/16 12:50 08/17/16 15:09 08/17/16 18:54 08/18/16 01:56 White Blood Count 7.54 K/uL Red Blood Count 4.08 M/uL Hemoglobin 9.9 g/dL Hematocrit 31.3 % Mean Corpuscular Volume 76.7 fL Mean Corpuscular Hemoglobin 24.3 pg Mean Corpuscular Hemoglobin Concent 31.6 g/dl Platelet Count 148 K/uL Mean Platelet Volume 10.7 fL Neutrophils (%) (Auto) 73.4 % Lymphocytes (%) (Auto) 15.1 % Monocytes (%) (Auto) 6.8 % Eosinophils (%) (Auto) 4.5 % Basophils (%) (Auto) 0.1 % Neutrophils # (Auto) 5.53 K/uL Lymphocytes # (Auto) 1.14 K/uL Monocytes # (Auto) 0.51 K/uL Eosinophils # (Auto) 0.34 K/uL Basophils # (Auto) 0.01 K/uL RDW Standard Deviation 44.3 fL RDW Coefficient of Variation 15.9 % Immature Granulocyte % (Auto) 0.1 % Immature Granulocyte # (Auto) 0.01 K/uL Prothrombin Time 12.0 SECONDS Prothromb Time International Ratio 1.1 Activated Partial Thromboplast Time 28.0 SECONDS Partial Thromboplastin Ratio 1.1 Sodium Level 139 mmol/L Potassium Level 4.2 mmol/L Chloride Level 101 mmol/L Carbon Dioxide Level 29 mmol/L Anion Gap 9.0 mmol/L Blood Urea Nitrogen 21 mg/dl Creatinine 4.50 mg/dl Est Creatinine Clear Calc Drug Dose 15.2 ml/min Estimated GFR () 13.1 Estimated GFR (Non- 11.3 BUN/Creatinine Ratio 4.7 Random Glucose 115 mg/dl Calcium Level 8.0 mg/dl Total Bilirubin 0.6 mg/dl Aspartate Amino Transf (AST/SGOT) 17 U/L Alanine Aminotransferase (ALT/SGPT) 35 U/L Alkaline Phosphatase 102 U/L Total Creatine Kinase 96 U/L 91 U/L 91 U/L Troponin I 0.458 ng/ml 0.436 ng/ml 0.447 ng/ml 0.471 ng/ml Total Protein 6.8 gm/dl Albumin 3.3 gm/dl Globulin 3.5 gm/dl Albumin/Globulin Ratio 0.9 Creatine Kinase MB 2.7 ng/ml 2.4 ng/ml Creatine Kinase MB Ratio 3.0 2.6 Assessment & Plan 81 y/o M w/ ESRD on MWF HD admitted as bridge to rehab after fall yesterday resulting in L impacted humeral fracture and L 5/6th rib frxs for which he is not a surgical candidate. ESRD -for HD today -agree w/ cont of [facility] meds -can use avf if pt has enough pain control and if arm EXTENDED; however twisting / rotation must be minimized >recommend give pt pain meds 30 min before HD; may need alternate access for dialysis if this is not workable Anemia of esrd -epo to keep hgb >10 Troponin elevation -per primary service ambulatory dysfunction and L humeral fracture per primary service and ortho Appreciate consultation; will follow with you.
[2016-08-18] MEDS: TRAMADOL HCL 50 MG TAB PO PRN (18:40)
--- NOTE | 2016-08-18 19:34 | Progress Note ---
Medicine Progress Note Date & Time of Visit: Aug 18, 2016 at 19:15. Subjective Pt was seen and examined Lying in bed with at daughter and son at bedside Pt said that he is having pain in the left shoulder he said that the pain med helps he said that his breathing his stable denies any chest pain, palpitation and dizziness Objective Last 8 Hrs Date Time Temp Pulse Resp B/P Pulse Ox O2 Delivery O2 Flow Rate FiO2 08/18/16 15:00 37.0 92 18 105/67 96 Nasal Cannula 2.0 08/18/16 14:19 Nasal Cannula 2.0 08/18/16 14:17 86 Room Air 08/18/16 12:46 36.6 93 90/55 08/18/16 12:15 89 86/58 08/18/16 12:00 89 74/55 08/18/16 11:45 87 82/49 08/18/16 11:30 89 87/53 Physical Exam: General- No acute distress Head- atraumatic Eyes- PERRL, EOMI ENT- oropharynx clear Neck- supple, no JVD, Lungs- clear to auscultation and percussion Heart- regular rhythm; no murmur Abdomen- normal bowel sounds, soft, nontender, no masses or hepatosplenomegaly Extremities- no calf tenderness, left shoulder swelling and pain Neuro- alert, oriented, PERRL, EOMI Skin- warm & dry Laboratory Results: Last 24 Hours Test 08/18/16 01:56 Total Creatine Kinase 91 U/L Creatine Kinase MB 2.4 ng/ml Creatine Kinase MB Ratio 2.6 Troponin I 0.471 ng/ml Assessment & Plan Left humeral fracture Status post mechanical fall Continue pain management Continue PT/OT Waiting for insurance approval for rehab Ortho consulted no surgical intervention at this time Rib Fractures Due to mechanical fall saturated well on RA continue incentive spirometry Ambulatory dysfunction xray of the hips showed Diffuse osteopenia. No acute fracture or dislocation within thepelvis or hips. Continue PT/OT Troponin elevation likely from end-stage renal disease Asymptomatic EKG does not shown any significant ST changes. echo pending End-stage renal disease, HD today Nephro on board History of coronary artery disease and coronary artery bypass graft. Stable Dyslipidemia Continue statin Benign prostatic hypertrophy Continue tamsulosin. Deep venous thrombosis prophylaxis Will start on heparin subq Code status: Full code according to patient. Consultants: nephro Ortho Current Inpatient Medications: Current Inpatient Medications Medications (Trade) Dose Ordered Sig/Daniel Route Start Time Stop Time Status Last Admin Dose Admin Oxycodone/ Acetaminophen (Percocet 5-325mg Tab) 1 tab Q6H PRN PO 08/17/16 16:30 08/31/16 16:29 08/18/16 17:27 1 TAB Tramadol HCl (Ultram Tab) 50 mg Q6H PRN PO 08/17/16 16:30 09/16/16 16:29 08/18/16 18:40 50 MG Atorvastatin Calcium (Lipitor Tab) 20 mg QPM PO 08/17/16 21:00 09/16/16 20:59 08/17/16 20:31 20 MG Calcium Acetate (Phoslo Cap) 1,334 mg TIDM PO 08/18/16 08:30 09/17/16 08:29 08/18/16 18:42 1,334 MG Tamsulosin HCl (Flomax Cap) 0.4 mg DAILY PO 08/18/16 09:00 09/17/16 08:59 08/18/16 07:49 0.4 MG Acetaminophen (Tylenol Tab) 650 mg Q4H PRN PO 08/17/16 16:45 09/16/16 16:44 Ondansetron HCl (Zofran Inj) 4 mg Q6H PRN IV 08/17/16 16:45 09/16/16 16:44 Albuterol/ Ipratropium (Duoneb) 3 ml Q2H PRN INH 08/17/16 19:45 09/16/16 19:44 Hydromorphone HCl (Dilaudid Inj) 0.5 mg Q3H PRN IV 08/18/16 01:30 09/01/16 01:29
[2016-08-18] MEDS: ATORVASTATIN 20 MG TAB PO SCH (21:22)
[2016-08-18] MEDS ORDERED: HYDROmorphone INJ 1 MG/ML SYR IV ONE (23:00)
[2016-08-19] MEDS ORDERED: HYDROmorphone INJ 1 MG/ML SYR IV PRN (01:30)
[2016-08-19 06:31] LABS: HEMATOCRIT 30.8 % (42-52); MEAN CORPUSCULAR HEMOGLOBIN 24.6 pg (25-34); MEAN CORPUSCULAR HGB CONC 31.5 g/dl (32-36); MEAN PLATELET VOLUME 11.9 fL (7.4-10.4); PLATELET COUNT 161 K/uL (130-400); RED BLOOD COUNT 3.95 M/uL (4.7-6.1); WHITE BLOOD COUNT 8.32 K/uL (4.8-10.8)
[2016-08-19] MEDS: OXYCODONE/ACETAMINOPHEN 5-325 TAB PO PRN ×3 (06:42→18:34)
[2016-08-19 06:46] LABS: BUN/CREATININE RATIO 4.8 (10-20); CALCIUM 7.7 mg/dl (8.5-10.1); CREATININE 5.3 mg/dl (0.60-1.40); MAGNESIUM 2.1 mg/dl (1.8-2.4); PHOSPHORUS 5.5 mg/dl (2.5-4.9); POTASSIUM 4.4 mmol/L (3.5-5.1)
[2016-08-19 07:18] VITALS: BP 117/73; PULSE 87; TEMP 36.7; O2SAT 97
[2016-08-19] MEDS: CALCIUM ACETATE 667MG GELCAP PO SCH ×3 (08:30→18:33)
[2016-08-19] MEDS ORDERED: PERFLUTREN LIPID MICROSPHERE (DEFINITY) IV ONE (10:32)
[2016-08-19] MEDS: TAMSULOSIN HCL 0.4 MG CAP PO SCH (13:27)
--- NOTE | 2016-08-19 14:45 | ECHOCARDIOGRAM REPORT ---
*NOTICE TO RECEIVING [facility] This information is strictly Confidential and protected under [place] law. [place] law prohibits you from making any further disclosure of this information unless further disclosure is expressly permitted by the written consent of the person to whom it pertains or is authorized by law. A general authorization for the release of medical or other information is not sufficient for this purpose. Hospital accepts no responsibility if the information is made available to any other person, INCLUDING THE PATIENT. Interpretation Summary * Name: NICK NELSON Study Date: 08/19/2016 10:18 AM BP: 117/73 mmHg * Patient Location: C.MSN\S\N375\S\2 HR: 87 * : 1935 (M/d/yyyy) Gender: Male Height: 69 in * Age: 81 yrs Ethnicity: [place] Weight: 235 lb * Ordering Physician: El Cardenas * Performed By: Kae Stuart * * Reason For Study: TROPONIN ELEVATION * BSA: 2.2 m2 * -- Conclusions -- * Compared with 10/23/11 study, LV systolic function has declined. * The left ventricle is normal in size. * Left ventricular systolic function is moderately reduced. * Ejection Fraction = 35-40%. * There is moderate global hypokinesis of the left ventricle. * Septal motion is consistent with conduction abnormality. * Flattened septum is consistent with RV pressure/volume overload. * There is moderate concentric left ventricular hypertrophy. * Diastolic dysfunction, Grade II, consistent with elevated left atrial pressure. * The gradient is normal for this prosthetic aortic valve. * There is mild to moderate tricuspid regurgitation. * Right ventricular systolic pressure is elevated at 30-40mmHg. Procedure Details * A complete two-dimensional transthoracic echocardiogram was performed (2D, M-mode, Doppler and color flow Doppler). * The study was technically difficult. * There were technical limitations due to patient'spoor positioning * A contrast injection of Definity was performed to improve assessment of LV function. * Contrast was injected into an intravenous site in the right arm. * One vial of Definity ultrasound contrast was diluted in normal saline to a total volume of 10 ml. A total of '3' ml of solution was administered during imaging. * Lot # [id number] of Definity utilized for procedure. * Expiration date 07/01. * The attending nurse who injected the contrast agent was STANISLAV VILLASEÑOR. Left Ventricle * The left ventricle is normal in size. * There is moderate concentric left ventricular hypertrophy. * Left ventricular systolic function is moderately reduced. * Ejection Fraction = 35-40%. * There is moderate global hypokinesis of the left ventricle. * Flattened septum is consistent with RV pressure/volume overload. * Septal motion is consistent with conduction abnormality. Right Ventricle * There is a pacemaker lead in the right ventricle. * The right ventricle is mildly dilated. Atria * The left atrium is moderately dilated. * The right atrium is mildly dilated. * The interatrial septum is intact with no evidence for an atrial septal defect. Mitral Valve * There is moderate to severe mitral annular calcification. * Significant mitral regurgitation is absent. Tricuspid Valve * The tricuspid valve is normal in structure and function. * There is mild to moderate tricuspid regurgitation. * Right ventricular systolic pressure is elevated at 30-40mmHg. Aortic Valve * No aortic regurgitation is present. * The prosthetic aortic valve is well-seated. * There is a bioprosthetic aortic valve. * The gradient is normal for this prosthetic aortic valve. Pulmonic Valve * The pulmonic valve is not well seen, but is grossly normal. * There is no significant pulmonary regurgitation. Great Vessels * The aortic root is normal size. * No obvious dissection could be visualized. * The pulmonary artery is normal size. Pericardium/Pleural * There is no pericardial effusion. Left Ventricular Diastolic Function * Diastolic dysfunction, Grade II, consistent with elevated left atrial pressure. MMode 2D Measurements and Calculations IVSd 1.7 cm IVSs 2.1 cm LVIDd 4.4 cm LVIDs 3.0 cm LVPWd 1.8 cm LVPWs 2.0 cm IVS/LVPW 0.95 FS 32.5 % EDV(Teich) 89.7 ml ESV(Teich) 35.0 ml EF(Teich) 61.0 % EDV(cubed) 87.6 ml ESV(cubed) 27.0 ml EF(cubed) 69.2 % % IVS thick 23.5 % % LVPW thick 8.6 % LV mass(C)d 350.8 grams LV mass(C)dI 158.6 grams/m\S\2 LV mass(C)s 276.0 grams LV mass(C)sI 124.7 grams/m\S\2 CO(Teich) 4.9 l/min CI(Teich) 2.2 l/min/m\S\2 SV(Teich) 54.7 ml SI(Teich) 24.7 ml/m\S\2 CO(cubed) 5.5 l/min CI(cubed) 2.5 l/min/m\S\2 SV(cubed) 60.7 ml SI(cubed) 27.4 ml/m\S\2 asc Aorta Diam 3.9 cm LVOT diam 1.9 cm LVOT area 2.8 cm\S\2 LVAd ap4 42.0 cm\S\2 LVLd ap4 10.1 cm EDV(MOD-sp4) 142.0 ml LVAs ap4 26.3 cm\S\2 LVLs ap4 8.8 cm ESV(MOD-sp4) 66.0 ml EF(MOD-sp4) 53.5 % LVAd ap2 38.2 cm\S\2 LVLd ap2 9.6 cm EDV(MOD-sp2) 126.0 ml LVAs ap2 24.5 cm\S\2 LVLs ap2 8.7 cm ESV(MOD-sp2) 59.0 ml EF(MOD-sp2) 53.2 % CO(MOD-sp4) 6.8 l/min CI(MOD-sp4) 3.1 l/min/m\S\2 SV(MOD-sp4) 76.0 ml SI(MOD-sp4) 34.4 ml/m\S\2 CO(MOD-sp2) 6.0 l/min CI(MOD-sp2) 2.7 l/min/m\S\2 SV(MOD-sp2) 67.0 ml SI(MOD-sp2) 30.3 ml/m\S\2 Doppler Measurements and Calculations MV E max charmaine 114.5 cm/sec MV A max charmaine 32.4 cm/sec MV E/A 3.5 MV dec time 0.15 sec Ao V2 max 275.3 cm/sec Ao max PG 30.3 mmHg Ao max PG (full) 27.8 mmHg Ao V2 mean 198.7 cm/sec Ao mean PG 17.4 mmHg Ao V2 VTI 40.6 cm JENNIFER(V,A) 0.82 cm\S\2 JENNIFER(V,D) 0.82 cm\S\2 LV V1 max PG 2.6 mmHg LV V1 max 80.2 cm/sec PA V2 max 82.9 cm/sec PA max PG 2.8 mmHg TR max charmaine 271.3 cm/sec
[2016-08-19 14:49] VITALS: BP 127/54; PULSE 88; TEMP 36.7; O2SAT 94
--- NOTE | 2016-08-19 17:44 | Progress Note ---
Medicine Progress Note Date & Time of Visit: Aug 19, 2016 at 17:37. Subjective Pt was seen and examined Lying in bed with no distress Pt said that he continue to have have tenderness in the left shoulder area He said that the pain medication help for the shoulder pain Denies any chest pain, palpitation, dizziness and sob Objective Last 8 Hrs Date Time Temp Pulse Resp B/P Pulse Ox O2 Delivery O2 Flow Rate FiO2 08/19/16 14:49 36.7 88 18 127/54 94 3.0 08/19/16 10:30 Room Air Physical Exam: General- No acute distress Head- atraumatic Eyes- PERRL, EOMI ENT- oropharynx clear Neck- supple, no JVD, Lungs- clear to auscultation and percussion Heart- regular rhythm; no murmur Abdomen- normal bowel sounds, soft, nontender, no masses or hepatosplenomegaly Extremities- no calf tenderness, left shoulder swelling and pain Neuro- alert, oriented, PERRL, EOMI Skin- warm & dry Laboratory Results: Last 24 Hours Test 08/19/16 05:05 White Blood Count 8.32 K/uL Red Blood Count 3.95 M/uL Hemoglobin 9.7 g/dL Hematocrit 30.8 % Mean Corpuscular Volume 78.0 fL Mean Corpuscular Hemoglobin 24.6 pg Mean Corpuscular Hemoglobin Concent 31.5 g/dl RDW Standard Deviation 44.3 fL RDW Coefficient of Variation 15.4 % Platelet Count 161 K/uL Mean Platelet Volume 11.9 fL Sodium Level 137 mmol/L Potassium Level 4.4 mmol/L Chloride Level 98 mmol/L Carbon Dioxide Level 28 mmol/L Anion Gap 11.0 mmol/L Blood Urea Nitrogen 25 mg/dl Creatinine 5.30 mg/dl Est Creatinine Clear Calc Drug Dose 12.6 ml/min Estimated GFR () 10.8 Estimated GFR (Non- 9.3 BUN/Creatinine Ratio 4.8 Random Glucose 96 mg/dl Calcium Level 7.7 mg/dl Phosphorus Level 5.5 mg/dl Magnesium Level 2.1 mg/dl Assessment & Plan Left humeral fracture Status post mechanical fall Pain control with pain med Continue PT/OT Waiting for insurance approval for rehab Ortho consulted no surgical intervention at this time Rib Fractures Due to mechanical fall saturated well on RA continue incentive spirometry Ambulatory dysfunction xray of the hips showed Diffuse osteopenia. No acute fracture or dislocation within thepelvis or hips. Continue PT/OT Troponin elevation likely from end-stage renal disease Asymptomatic EKG does not shown any significant ST changes. Echo showed EF 35 to 40% Moderate global hypokinesis of LV consider to start on Beta charan Will consult cardiology echo showed -- Conclusions -- * Compared with 10/23/11 study, LV systolic function has declined. * The left ventricle is normal in size. * Left ventricular systolic function is moderately reduced. * Ejection Fraction = 35-40%. * There is moderate global hypokinesis of the left ventricle. * Septal motion is consistent with conduction abnormality. * Flattened septum is consistent with RV pressure/volume overload. * There is moderate concentric left ventricular hypertrophy. * Diastolic dysfunction, Grade II, consistent with elevated left atrial pressure. * The gradient is normal for this prosthetic aortic valve. * There is mild to moderate tricuspid regurgitation. * Right ventricular systolic pressure is elevated at 30-40mmHg. End-stage renal disease, HD yesterday Nephro on board History of coronary artery disease and coronary artery bypass graft. Stable Dyslipidemia Continue statin Benign prostatic hypertrophy Continue tamsulosin. DVT px starting on heparin subq Code status: Full code according to patient. Consultants: nephro Ortho Current Inpatient Medications: Current Inpatient Medications Medications (Trade) Dose Ordered Sig/Daniel Route Start Time Stop Time Status Last Admin Dose Admin Atorvastatin Calcium (Lipitor Tab) 20 mg QPM PO 08/17/16 21:00 09/16/16 20:59 08/18/16 21:22 20 MG Calcium Acetate (Phoslo Cap) 1,334 mg TIDM PO 08/18/16 08:30 09/17/16 08:29 08/19/16 13:26 1,334 MG Tamsulosin HCl (Flomax Cap) 0.4 mg DAILY PO 08/18/16 09:00 09/17/16 08:59 08/19/16 13:27 0.4 MG Acetaminophen (Tylenol Tab) 650 mg Q4H PRN PO 08/17/16 16:45 09/16/16 16:44 Ondansetron HCl (Zofran Inj) 4 mg Q6H PRN IV 08/17/16 16:45 09/16/16 16:44 Albuterol/ Ipratropium (Duoneb) 3 ml Q2H PRN INH 08/17/16 19:45 09/16/16 19:44 Hydromorphone HCl (Dilaudid Inj) 1 mg Q3H PRN IV 08/19/16 01:30 09/02/16 01:29 Oxycodone/ Acetaminophen (Percocet 5-325mg Tab) `1-2 tabs for pain 1 tab ... Q4H PRN PO 08/19/16 02:30 09/02/16 02:29 08/19/16 12:35 1 TAB
[2016-08-19] MEDS: ATORVASTATIN 20 MG TAB PO SCH (20:55)
[2016-08-19] MEDS: HEPARIN SOD 5000 UNIT/0.5 ML CARP SQ SCH (20:56)
[2016-08-19 22:52] VITALS: BP 139/71; PULSE 93; TEMP 36.8; O2SAT 90
[2016-08-20] VITALS (7 sets, daily range): BP systolic 91–132; BP diastolic 55–77; PULSE 75–91; TEMP 36.4–36.7; O2SAT 90–98
[2016-08-20] MEDS: HEPARIN SOD 5000 UNIT/0.5 ML CARP SQ SCH ×3 (05:48→21:20)
[2016-08-20 08:59] LABS: HEMATOCRIT 33.4 % (42-52); MEAN CELL VOLUME 77.5 fL (80-100); MEAN CORPUSCULAR HEMOGLOBIN 24.6 pg (25-34); MEAN CORPUSCULAR HGB CONC 31.7 g/dl (32-36); MEAN PLATELET VOLUME 10.9 fL (7.4-10.4); PLATELET COUNT 177 K/uL (130-400); RED BLOOD COUNT 4.31 M/uL (4.7-6.1); WHITE BLOOD COUNT 9.41 K/uL (4.8-10.8)
[2016-08-20] MEDS: OXYCODONE/ACETAMINOPHEN 5-325 TAB PO PRN ×2 (09:07→13:00)
[2016-08-20] MEDS: CALCIUM ACETATE 667MG GELCAP PO SCH ×3 (09:09→18:29)
[2016-08-20] MEDS: TAMSULOSIN HCL 0.4 MG CAP PO SCH (09:09)
[2016-08-20 10:22] LABS: BUN/CREATININE RATIO 6.4 (10-20); CALCIUM 8.5 mg/dl (8.5-10.1); CREATININE 7.7 mg/dl (0.60-1.40); POTASSIUM 4.2 mmol/L (3.5-5.1)
--- NOTE | 2016-08-20 10:39 | Cardiology Consultation ---
Cardiology Consultation Date of Consultation: Aug 20, 2016. Requesting Physician: Dr. Altamirano Reason for Consultation: Left ventricular dysfunction Pt evaluation today including: conversation w/ patient, physical exam, lab review, review of studies, review of inpatient medication list, conversation w/ attending History of Present Illness This is a 76 yo male, followed by Dr. Wheat, who has a long history of CAD with CABGX4 in Jul 2007 as well as a brioprosthetic AVR at that time. On telemetry he was noted to have several episodes of sinus arrest with pauses of over 3 sec in duration. 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 His beta blockers and Amlodipine were discontinued but he still had periods of symptomatic sinus arrest and bradycardia with some junctional escape rhythms. He had a dual-chamber pacemaker implanted 11/05/2011. He has followed in the office since, the last visit was September 2015. He had been somewhat noncompliant with remote monitoring and I don't see any data in the office since that September 2015 visit. The pacemaker however was evaluated this admission and found to be functioning well , details are noted below. He has kidney failure and is on dialysis. He presented here with a fall on 08/16/2016. He evidently tripped over a rug and lost his balance and apparently did not lose consciousness. He had left arm injury but was discharged with pain control, however he returned the following day with worsening pain. He was admitted for management of pain. He was however identified as having an elevated troponin (about 0.45 on 4 determinations with no particular trend) and an echocardiogram was performed which showed left ventricular dysfunction, worsened from his prior study in 2011. He has not been having anginal symptoms, he is having left-sided chest discomfort now but that is where he fallen and injured his ribs. Prior to the fall he had no exertional chest pain and did not have any change in his breathing. He does not have orthopnea or PND or significant dyspnea on exertion. He was on beta blockers before, it sounds as though they were decreased and discontinued due to hypotension in the past. Past Medical/Surgical History Medical Problems: (1) Fracture of proximal end of left humerus Status: Acute (2) Fracture, humerus, anatomical neck Status: Acute (3) Multiple fractures of ribs of left side Status: Acute (4) Multiple fractures of ribs, left side, initial encounter for closed fracture Status: Acute (5) Weakness Status: Acute Family History FHx: cancer FHx: heart disease FHx: hypertension FHx: kidney disease Social History Smoking Status: Former Smoker History of Alcohol Use: No Review of Systems Constitutional: No fever, No weakness, No weight loss Respiratory: + see HPI, No cough, No shortness of breath, No wheezing Cardiac: + chest pain ( chest pain only after fall and rib frx), + see HPI, No edema, No palpitations Abdomen: No GI bleeding, No diarrhea, No nausea, No pain, No vomiting Male : No nocturia more than once/night, No sexual dysfunction, No slowing stream, No urinary frequency Neurologic: No balance problems, No numbness/tingling, No paralysis, No weakness Heme: No abnormal bleeding/bruising, No clotting problems Endo: No fatigue Skin: No problem reported All Other Systems: Reviewed and Negative Allergies Coded Allergies: No Known Allergies (Verified , `, 10/22/11) Medications Current Inpatient Medications Medications (Trade) Dose Ordered Sig/Daniel Route Start Time Stop Time Status Last Admin Dose Admin Atorvastatin Calcium (Lipitor Tab) 20 mg QPM PO 08/17/16 21:00 09/16/16 20:59 08/19/16 20:55 20 MG Calcium Acetate (Phoslo Cap) 1,334 mg TIDM PO 08/18/16 08:30 09/17/16 08:29 08/20/16 09:09 1,334 MG Tamsulosin HCl (Flomax Cap) 0.4 mg DAILY PO 08/18/16 09:00 09/17/16 08:59 08/20/16 09:09 0.4 MG Acetaminophen (Tylenol Tab) 650 mg Q4H PRN PO 08/17/16 16:45 09/16/16 16:44 Ondansetron HCl (Zofran Inj) 4 mg Q6H PRN IV 08/17/16 16:45 09/16/16 16:44 Albuterol/ Ipratropium (Duoneb) 3 ml Q2H PRN INH 08/17/16 19:45 09/16/16 19:44 Hydromorphone HCl (Dilaudid Inj) 1 mg Q3H PRN IV 08/19/16 01:30 09/02/16 01:29 Oxycodone/ Acetaminophen (Percocet 5-325mg Tab) `1-2 tabs for pain 1 tab ... Q4H PRN PO 08/19/16 02:30 09/02/16 02:29 08/20/16 09:07 2 TAB Heparin Sodium (Porcine) (Heparin Sq 5000 Unit/0.5ml) 5,000 unit Q8 SQ 08/19/16 22:00 09/18/16 21:59 08/20/16 05:48 5,000 UNIT Physical Exam Vital Signs Past 12 Hours Date Time Temp Pulse Resp B/P Pulse Ox O2 Delivery O2 Flow Rate FiO2 08/20/16 08:04 36.7 86 18 129/77 96 Room Air 08/20/16 00:05 Nasal Cannula 2.0 08/19/16 22:52 36.8 93 16 139/71 90 Room Air Constitutional: General Apperance: heathly-appearing Level of Distress: NAD Psychiatric: Mental Status: active & alert Head: normocephalic Eyes: EOM: EOMI ENMT: normal ENT inspection, hearing grossly normal Neck: supple, no masses Lungs: Respiratory effort: no dyspnea, good air movement Auscultation: breath sounds normal, no wheezing Cardiovascular: Heart Auscultation: RRR, no murmurs, no rubs, no gallops, pertinent finding (good prosthetic valve sounds) Peripheral Pulses: Bruits: none appreciated Abdomen: Bowel Sounds: normal Inspection & Palpation: soft, no tenderness, guarding & rebound, no masses Musculoskeletal: normal strength (5/5 throughout) Extremities: no edema Neurologic: Cranial Nerves: grossly intact Sensation: grossly intact Data Laboratory Results: Last 24 Hours Test 08/20/16 08:50 White Blood Count 9.41 K/uL Red Blood Count 4.31 M/uL Hemoglobin 10.6 g/dL Hematocrit 33.4 % Mean Corpuscular Volume 77.5 fL Mean Corpuscular Hemoglobin 24.6 pg Mean Corpuscular Hemoglobin Concent 31.7 g/dl RDW Standard Deviation 43.7 fL RDW Coefficient of Variation 15.3 % Platelet Count 177 K/uL Mean Platelet Volume 10.9 fL Imaging: An echocardiogram done on 08/19/2016 shows moderate left ventricular dysfunction with ejection fraction of 35-40%, global in nature. He had concentric left ventricular hypertrophy and diastolic dysfunction. His prosthetic valve appeared to be functioning normally. When compared to 2011 for left ventricular dysfunction is new, his LV function was normal at that time. EKG: An electrocardiogram here demonstrates sinus rhythm with first-degree AV block and bifascicular block (right bundle branch block and left anterior fascicular probably). QRS duration is 172 ms on 08/17/2016. Pacemaker evaluation: His pacemaker was evaluated here 08/18/2016 and was functioning well with excellent pacing and sensing characteristics and battery longevity. He was pacing about 50% of the time in the ventricle, sensing in the atrium almost all of the time appropriately. Assessment & Plan #1. Cardiomyopathy: The cause of his cardiomyopathy is unclear. He does not appear to have had an acute ischemic event, his troponins are slightly elevated but stable consistent with his renal insufficiency. He does pace about half of the time in the ventricle, it is possible that he has developed a pacemaker- induced cardiomyopathy. He does have a wide QRS complex during intrinsic rhythm , wide enough that he could develop a cardiomyopathy from it, although his left ventricular function in 2012 was not reduced and his electrocardiogram looked about the same. We could consider an ischemia evaluation here although we don't have any evidence that he is having active ischemia but perhaps he has had silent events. For the moment I would add medications to his regiment ( carvedilol and lisinopril if possible) to treat his cardiomyopathy, future considerations would include upgrade to a biventricular device if we feel that this is due either to his underlying conduction abnormality or right ventricular pacing. I'm going to add low-dose beta-blockade today (carvedilol 3.125 mg twice a day) and low-dose lisinopril (2.5 mg daily). #2. Coronary disease: He has known coronary artery disease but this does not appear to be effective currently although ischemia workup may be indicated ( noninvasive). I have not ordered that at this time. With his conduction abnormality this would require a Cardiolite study, probably pharmacologic. The cardiac enzyme elevation does not appear to represent an acute ischemic event. #3. Aortic valve replacement: The valve appears to be functioning well on exam and does not explain his left ventricular dysfunction. We will follow along with you. Thank you for allowing me to participate in his care.
[2016-08-20] MEDS ORDERED: LISINOPRIL 2.5 MG TAB PO ONE (11:00)
[2016-08-20] MEDS ORDERED: CARVEDILOL 3.125 MG TAB PO ONE (11:00)
--- NOTE | 2016-08-20 15:22 | Progress Note ---
Medicine Progress Note Date & Time of Visit: Aug 20, 2016 at 15:14. Subjective Pt was seen and examined Lying in bed with no distress Pt said that the left shoulder pain slightly improved he denies any chest pain, palpitation, dizziness and sob Objective Last 8 Hrs Date Time Temp Pulse Resp B/P Pulse Ox O2 Delivery O2 Flow Rate FiO2 08/20/16 11:52 91 132/72 08/20/16 08:04 36.7 86 18 129/77 96 Room Air 08/20/16 08:00 90 Nasal Cannula 2.0 Physical Exam: General- No acute distress Head- atraumatic Eyes- PERRL, EOMI ENT- oropharynx clear Neck- supple, no JVD, Lungs- clear to auscultation and percussion Heart- regular rhythm; no murmur Abdomen- normal bowel sounds, soft, nontender, no masses or hepatosplenomegaly Extremities- no calf tenderness, left shoulder swelling and pain Neuro- alert, oriented, PERRL, EOMI Skin- warm & dry Laboratory Results: Last 24 Hours Test 08/20/16 08:50 White Blood Count 9.41 K/uL Red Blood Count 4.31 M/uL Hemoglobin 10.6 g/dL Hematocrit 33.4 % Mean Corpuscular Volume 77.5 fL Mean Corpuscular Hemoglobin 24.6 pg Mean Corpuscular Hemoglobin Concent 31.7 g/dl RDW Standard Deviation 43.7 fL RDW Coefficient of Variation 15.3 % Platelet Count 177 K/uL Mean Platelet Volume 10.9 fL Sodium Level 136 mmol/L Potassium Level 4.2 mmol/L Chloride Level 95 mmol/L Carbon Dioxide Level 26 mmol/L Anion Gap 15.0 mmol/L Blood Urea Nitrogen 49 mg/dl Creatinine 7.70 mg/dl Est Creatinine Clear Calc Drug Dose 8.7 ml/min Estimated GFR () 6.9 Estimated GFR (Non- 5.9 BUN/Creatinine Ratio 6.4 Random Glucose 104 mg/dl Calcium Level 8.5 mg/dl Phosphorus Level 6.5 mg/dl Assessment & Plan Left humeral fracture Status post mechanical fall Pain control with pain med Continue PT/OT Waiting for insurance approval for rehab, will find out tomorrow Ortho on board recommended no surgical intervention at this time Stable Rib Fractures Due to mechanical fall saturated well on RA continue incentive spirometry Ambulatory dysfunction xray of the hips showed Diffuse osteopenia. No acute fracture or dislocation within thepelvis or hips. Continue PT/OT Waiting for placement to rehab Troponin elevation likely from end-stage renal disease Asymptomatic EKG does not shown any significant ST changes. Echo showed EF 35 to 40% Moderate global hypokinesis of LV consider to start on Beta charan Cardiology on board echo showed -- Conclusions -- * Compared with 10/23/11 study, LV systolic function has declined. * The left ventricle is normal in size. * Left ventricular systolic function is moderately reduced. * Ejection Fraction = 35-40%. * There is moderate global hypokinesis of the left ventricle. * Septal motion is consistent with conduction abnormality. * Flattened septum is consistent with RV pressure/volume overload. * There is moderate concentric left ventricular hypertrophy. * Diastolic dysfunction, Grade II, consistent with elevated left atrial pressure. * The gradient is normal for this prosthetic aortic valve. * There is mild to moderate tricuspid regurgitation. * Right ventricular systolic pressure is elevated at 30-40mmHg. Cardiomyopathy Decrease in EF when compared to previous echo Etiology unclear Starting on low dose carvedilol and lisinopril by cardiology Case discussed with Cardiology Dr. Kunz will possible schedule for a pharmacology stress Continue monitor End-stage renal disease, HD tomorrow Nephro on board No signs of overload History of coronary artery disease and coronary artery bypass graft. Stable Dyslipidemia Continue statin Benign prostatic hypertrophy Continue tamsulosin. DVT px on heparin subq Code status: Full code Consultants: nephro Ortho Current Inpatient Medications: Current Inpatient Medications Medications (Trade) Dose Ordered Sig/Daniel Route Start Time Stop Time Status Last Admin Dose Admin Atorvastatin Calcium (Lipitor Tab) 20 mg QPM PO 08/17/16 21:00 09/16/16 20:59 08/19/16 20:55 20 MG Calcium Acetate (Phoslo Cap) 1,334 mg TIDM PO 08/18/16 08:30 09/17/16 08:29 08/20/16 12:10 1,334 MG Tamsulosin HCl (Flomax Cap) 0.4 mg DAILY PO 08/18/16 09:00 09/17/16 08:59 08/20/16 09:09 0.4 MG Acetaminophen (Tylenol Tab) 650 mg Q4H PRN PO 08/17/16 16:45 09/16/16 16:44 Ondansetron HCl (Zofran Inj) 4 mg Q6H PRN IV 08/17/16 16:45 09/16/16 16:44 Albuterol/ Ipratropium (Duoneb) 3 ml Q2H PRN INH 08/17/16 19:45 09/16/16 19:44 Hydromorphone HCl (Dilaudid Inj) 1 mg Q3H PRN IV 08/19/16 01:30 09/02/16 01:29 Oxycodone/ Acetaminophen (Percocet 5-325mg Tab) `1-2 tabs for pain 1 tab ... Q4H PRN PO 08/19/16 02:30 09/02/16 02:29 08/20/16 13:00 2 TAB Heparin Sodium (Porcine) (Heparin Sq 5000 Unit/0.5ml) 5,000 unit Q8 SQ 08/19/16 22:00 09/18/16 21:59 08/20/16 13:27 5,000 UNIT Carvedilol (Coreg Tab) 3.125 mg BID PO 08/20/16 21:00 09/19/16 20:59 Lisinopril (Zestril Tab) 2.5 mg QAM PO 08/21/16 09:00 09/20/16 08:59 Epoetin Andrei (Procrit Inj) 10,000 units TODAY@0800 IV. 08/21/16 08:00 08/21/16 23:59
[2016-08-20] MEDS: CARVEDILOL 3.125 MG TAB PO SCH (21:00)
[2016-08-20] MEDS: ATORVASTATIN 20 MG TAB PO SCH (21:07)
[2016-08-21] VITALS (22 sets, daily range): BP systolic 78–130; BP diastolic 43–95; PULSE 71–92; TEMP 36.6–37; O2SAT 95–98
[2016-08-21] MEDS: HEPARIN SOD 5000 UNIT/0.5 ML CARP SQ SCH ×3 (05:24→22:28)
--- NOTE | 2016-08-21 06:20 | Nephrology Progress Note ---
Nephrology Progress Note Date of Service: Aug 21, 2016. Subjective 81 yo male with esrd who fell and had humerus fracture. arm in sling. pt confused this morning likely from pain meds. Objective Date Time Temp Pulse Resp B/P Pulse Ox O2 Delivery O2 Flow Rate FiO2 08/21/16 00:15 Nasal Cannula 2.0 08/20/16 22:55 36.6 80 18 97/55 98 Nasal Cannula 2.0 08/20/16 21:17 107/68 08/20/16 16:30 97 Room Air 08/20/16 15:27 36.4 75 18 91/58 97 Room Air 08/20/16 11:52 91 132/72 08/20/16 08:04 36.7 86 18 129/77 96 Room Air 08/20/16 08:00 90 Nasal Cannula 2.0 Physical Exam: General-aaox2, confused Eyes-no scleral icterus ENT-mmm Neck-supple Lungs-cta Heart-rrr Abdomen-bs+ s/nt/nd Extremities-left arm in sling, no edema in legs Neuro-confused Current Inpatient Medications Medications (Trade) Dose Ordered Sig/Daniel Route Start Time Stop Time Status Last Admin Dose Admin Atorvastatin Calcium (Lipitor Tab) 20 mg QPM PO 08/17/16 21:00 09/16/16 20:59 08/20/16 21:07 20 MG Calcium Acetate (Phoslo Cap) 1,334 mg TIDM PO 08/18/16 08:30 09/17/16 08:29 08/20/16 18:29 1,334 MG Tamsulosin HCl (Flomax Cap) 0.4 mg DAILY PO 08/18/16 09:00 09/17/16 08:59 08/20/16 09:09 0.4 MG Acetaminophen (Tylenol Tab) 650 mg Q4H PRN PO 08/17/16 16:45 09/16/16 16:44 Ondansetron HCl (Zofran Inj) 4 mg Q6H PRN IV 08/17/16 16:45 09/16/16 16:44 Albuterol/ Ipratropium (Duoneb) 3 ml Q2H PRN INH 08/17/16 19:45 09/16/16 19:44 Hydromorphone HCl (Dilaudid Inj) 1 mg Q3H PRN IV 08/19/16 01:30 2/18/17 01:29 Oxycodone/ Acetaminophen (Percocet 5-325mg Tab) `1-2 tabs for pain 1 tab ... Q4H PRN PO 08/19/16 02:30 09/02/16 02:29 08/20/16 13:00 2 TAB Heparin Sodium (Porcine) (Heparin Sq 5000 Unit/0.5ml) 5,000 unit Q8 SQ 08/19/16 22:00 09/18/16 21:59 08/21/16 05:24 5,000 UNIT Carvedilol (Coreg Tab) 3.125 mg BID PO 08/20/16 21:00 09/19/16 20:59 Lisinopril (Zestril Tab) 2.5 mg QAM PO 08/21/16 09:00 09/20/16 08:59 Epoetin Andrei (Procrit Inj) 10,000 units TODAY@0800 IV. 08/21/16 08:00 08/21/16 23:59 Last 24 Hours Test 08/20/16 08:50 08/21/16 05:20 White Blood Count 9.41 K/uL Red Blood Count 4.31 M/uL Hemoglobin 10.6 g/dL Hematocrit 33.4 % Mean Corpuscular Volume 77.5 fL Mean Corpuscular Hemoglobin 24.6 pg Mean Corpuscular Hemoglobin Concent 31.7 g/dl RDW Standard Deviation 43.7 fL RDW Coefficient of Variation 15.3 % Platelet Count 177 K/uL Mean Platelet Volume 10.9 fL Sodium Level 136 mmol/L Potassium Level 4.2 mmol/L Chloride Level 95 mmol/L Carbon Dioxide Level 26 mmol/L Anion Gap 15.0 mmol/L Blood Urea Nitrogen 49 mg/dl Creatinine 7.70 mg/dl Est Creatinine Clear Calc Drug Dose 8.7 ml/min Estimated GFR () 6.9 Estimated GFR (Non- 5.9 BUN/Creatinine Ratio 6.4 Random Glucose 104 mg/dl Calcium Level 8.5 mg/dl Phosphorus Level 6.5 mg/dl Assessment & Plan ESRD-for dialysis today and plan on removing about 2l as bp tolerates. doing dialysis delicately since access in arm which is broken. Anemia of renal failure-pt is a restorationism and does not want blood products but is agreeable to procrit and will redose again today. Cards-greatly appreciate cardiology input. cardiology spoke to me and has started coreg and lisinopril to help with bp and rate control.
[2016-08-21 06:23] LABS: HEMATOCRIT 28.3 % (42-52); MEAN CELL VOLUME 75.9 fL (80-100); MEAN CORPUSCULAR HEMOGLOBIN 24.1 pg (25-34); MEAN CORPUSCULAR HGB CONC 31.8 g/dl (32-36); MEAN PLATELET VOLUME 11.9 fL (7.4-10.4); PLATELET COUNT 185 K/uL (130-400); RED BLOOD COUNT 3.73 M/uL (4.7-6.1); WHITE BLOOD COUNT 7.97 K/uL (4.8-10.8)
[2016-08-21 07:04] LABS: BUN/CREATININE RATIO 7.4 (10-20); CALCIUM 8.3 mg/dl (8.5-10.1); POTASSIUM 4.5 mmol/L (3.5-5.1)
[2016-08-21 07:05] LABS: CREATININE 9.1 mg/dl (0.60-1.40)
[2016-08-21] MEDS: CALCIUM ACETATE 667MG GELCAP PO SCH ×3 (07:38→19:02)
[2016-08-21] MEDS ORDERED: EPOETIN ALFA 10,000 UNITS/ML VIAL IV. SCH (08:00)
[2016-08-21] MEDS: CARVEDILOL 3.125 MG TAB PO SCH ×2 (09:00→21:08)
--- NOTE | 2016-08-21 10:32 | CARDIOLOGY PROGRESS NOTE ---
DATE: 08/21/2016 HISTORY OF PRESENT ILLNESS: Mr. Poon is a very pleasant 81-year-old white male with a history of CAD status post CABG x4 vessels and porcine AVR July 2007, hypertension, hypercholesterolemia, conductive heart disease status post dual chamber pacemaker placement, and end-stage renal disease on hemodialysis, who was admitted acutely on 08/17/2016 following a mechanical fall resulting in left humeral and left-sided rib fractures. The patient is currently being seen in dialysis. He offers no complaints. His arm and ribs are still sore. He was noted during this hospitalization to have a reduced LV systolic function, LVEF is now 35% to 40%. He has not had any symptoms attributable to this decreased systolic function. He specifically denies any chest pains, heaviness, tightness, pressure or angina pectoris. No shortness of breath, unusual dyspnea on exertion, orthopnea, PND, or peripheral edema. He further denies any palpitations, tachypalpitations, syncope, or near syncope. PHYSICAL EXAMINATION: VITAL SIGNS: Temperature is 36.8 degrees Celsius, pulse is 80 and regular, respiratory rate 16 and unlabored, blood pressure is 109/67, SPO2 is 98% on 2 liters of oxygen via nasal cannula. GENERAL: The patient is in no acute distress. HEENT: Head is atraumatic, normocephalic. EOMs intact. Sclerae are anicteric. Facies symmetric. No perioral cyanosis. Mucous membranes are moist. NECK: Without thyromegaly, adenopathy or JVD. CHEST AND LUNGS: Clear to auscultation throughout all lung sheppard, no wheezes, rales or rhonchi. CARDIOVASCULAR: S1 and S2 are regular with a grade 1/6 basal systolic murmur heard best over the right second intercostal space. Aortic valve closure sounds are accentuated. No diastolic murmurs appreciated. No obvious gallops or rubs. PMI is laterally displaced. No lifts, heaves, or thrills. No abdominal, aortic or renal bruits. There is a palpable pacemaker generator in the right subclavian fossa. ABDOMINAL EXAMINATION: Bowel sounds present. No masses, organomegaly or tenderness. EXTREMITIES: Without clubbing or cyanosis. Trace pretibial edema bilaterally. NEUROLOGIC: The patient is awake, alert, and interactive. Answers questions appropriately. Speech is clear. Follows commands. LABORATORIES: White blood cell count is 7.97. Hemoglobin 9.0 g/dL, hematocrit is 28.3%. Platelet count 185,000. Sodium is 134 mmol/L, potassium 4.5 mmol/L. BUN 67 mg/dL, creatinine 9.10 mg/dL. Random glucose is 89 mg/dL. Total CKs are 91, 91, and 96 units per liter with respective CK-MBs of 2.4 and 2.7 ng/mL. Troponin I's are elevated at 0.471, 0.447, 0.436, and 0.458 ng/mL. ASSESSMENT: 1. Newly diagnosed Cardiomyopathy, left ventricular ejection fraction 35% to 40%. Uncertain etiology. Possibly pacemaker induced. 2. Coronary artery disease status post coronary artery bypass graft x4 vessels 2007. 3. History porcine aortic valve replacement July 2007. 4. Hypertension. 5. Dyslipidemia. 6. Permanent pacemaker. 7. End-stage renal disease, on hemodialysis. 8. Moderate concentric left ventricular hypertrophy with grade 2 diastolic dysfunction. 9. No angina pectoris or anginal equivalent symptoms. 10. No signs or symptoms of overt heart failure. 11. No symptoms suggestive of dysrhythmia. PLAN: 1. The patient is currently being seen on dialysis, he has no complaints today. 2. Continue Coreg 3.125 mg b.i.d. His blood pressure has been intermittently low and his Coreg dose was held this morning. 3. Continue Lisinopril 2.5 mg daily. 4. Continue trading specialist statin medication. 5. We will continue to follow along while hospitalized. 6. Monitor daily I&O's, body weights. [facility]
[2016-08-21] MEDS: OXYCODONE/ACETAMINOPHEN 5-325 TAB PO PRN (10:58)
[2016-08-21] MEDS: LISINOPRIL 2.5 MG TAB PO SCH (12:28)
[2016-08-21] MEDS: TAMSULOSIN HCL 0.4 MG CAP PO SCH (12:57)
--- NOTE | 2016-08-21 16:44 | Progress Note ---
Medicine Progress Note Date & Time of Visit: Aug 21, 2016 at 16:39. Subjective Pt was seen and examined Lying in bed with no distress with family at bedside Pt just had HD today he feels very tired and sleepy He said that the pain improved slightly denies any chest pain, palpitation, dizziness and SOB family said it seems like the pain med make him drowsy Objective Last 8 Hrs Date Time Temp Pulse Resp B/P Pulse Ox O2 Delivery O2 Flow Rate FiO2 08/21/16 16:07 36.6 89 16 110/68 95 Nasal Cannula 08/21/16 13:12 80 112/65 98 Nasal Cannula 2.0 08/21/16 11:45 73 81/75 08/21/16 11:30 86 95/46 08/21/16 11:15 80 88/43 08/21/16 11:00 84 104/54 08/21/16 10:45 84 105/53 08/21/16 10:30 85 108/54 08/21/16 10:15 82 93/53 08/21/16 10:00 82 93/52 08/21/16 09:45 71 119/95 08/21/16 09:30 79 86/50 08/21/16 09:16 78 89/50 Physical Exam: General- No acute distress, tired today Head- atraumatic Eyes- PERRL, EOMI ENT- oropharynx clear Neck- supple, no JVD, Lungs- clear to auscultation and percussion Heart- regular rhythm; no murmur Abdomen- normal bowel sounds, soft, nontender Extremities- no calf tenderness, left shoulder swelling and pain Neuro- alert, oriented, PERRL, EOMI Skin- warm & dry Laboratory Results: Last 24 Hours Test 08/21/16 05:20 White Blood Count 7.97 K/uL Red Blood Count 3.73 M/uL Hemoglobin 9.0 g/dL Hematocrit 28.3 % Mean Corpuscular Volume 75.9 fL Mean Corpuscular Hemoglobin 24.1 pg Mean Corpuscular Hemoglobin Concent 31.8 g/dl RDW Standard Deviation 41.3 fL RDW Coefficient of Variation 15.0 % Platelet Count 185 K/uL Mean Platelet Volume 11.9 fL Sodium Level 134 mmol/L Potassium Level 4.5 mmol/L Chloride Level 96 mmol/L Carbon Dioxide Level 25 mmol/L Anion Gap 13.0 mmol/L Blood Urea Nitrogen 67 mg/dl Creatinine 9.10 mg/dl Est Creatinine Clear Calc Drug Dose 7.3 ml/min Estimated GFR () 5.6 Estimated GFR (Non- 4.8 BUN/Creatinine Ratio 7.4 Random Glucose 89 mg/dl Calcium Level 8.3 mg/dl Assessment & Plan Left humeral fracture Status post mechanical fall will change pain med to tramadol to avoid oversedated Continue PT/OT Waiting for insurance approval for rehab, will find out tomorrow Ortho on board recommended no surgical intervention at this time Stable Rib Fractures Due to mechanical fall saturated well on RA continue incentive spirometry Ambulatory dysfunction xray of the hips showed Diffuse osteopenia. No acute fracture or dislocation within thepelvis or hips. Continue PT/OT Waiting for placement to rehab Troponin elevation likely from end-stage renal disease Asymptomatic EKG does not shown any significant ST changes. Echo showed EF 35 to 40% Moderate global hypokinesis of LV Tolerated low dose of lisinopril and carvedilol well Cardiology on board echo showed -- Conclusions -- * Compared with 10/23/11 study, LV systolic function has declined. * The left ventricle is normal in size. * Left ventricular systolic function is moderately reduced. * Ejection Fraction = 35-40%. * There is moderate global hypokinesis of the left ventricle. * Septal motion is consistent with conduction abnormality. * Flattened septum is consistent with RV pressure/volume overload. * There is moderate concentric left ventricular hypertrophy. * Diastolic dysfunction, Grade II, consistent with elevated left atrial pressure. * The gradient is normal for this prosthetic aortic valve. * There is mild to moderate tricuspid regurgitation. * Right ventricular systolic pressure is elevated at 30-40mmHg. Cardiomyopathy Decrease in EF when compared to previous echo Etiology unclear Starting on low dose carvedilol and lisinopril by cardiology Case discussed with Cardiology Dr. Kunz will possible schedule for a pharmacology stress Continue monitor End-stage renal disease, HD tomorrow Nephro on board No signs of overload History of coronary artery disease and coronary artery bypass graft. Stable Dyslipidemia Continue statin Benign prostatic hypertrophy Continue tamsulosin. DVT px on heparin subq Code status: Full code Consultants: [facility] Current Inpatient Medications: Current Inpatient Medications Medications (Trade) Dose Ordered Sig/Daniel Route Start Time Stop Time Status Last Admin Dose Admin Atorvastatin Calcium (Lipitor Tab) 20 mg QPM PO 2/2/17 21:00 09/16/16 20:59 08/20/16 21:07 20 MG Calcium Acetate (Phoslo Cap) 1,334 mg TIDM PO 08/18/16 08:30 09/17/16 08:29 08/21/16 12:57 1,334 MG Tamsulosin HCl (Flomax Cap) 0.4 mg DAILY PO 08/18/16 09:00 09/17/16 08:59 08/21/16 12:57 0.4 MG Acetaminophen (Tylenol Tab) 650 mg Q4H PRN PO 08/17/16 16:45 09/16/16 16:44 Ondansetron HCl (Zofran Inj) 4 mg Q6H PRN IV 08/17/16 16:45 09/16/16 16:44 Albuterol/ Ipratropium (Duoneb) 3 ml Q2H PRN INH 08/17/16 19:45 09/16/16 19:44 Hydromorphone HCl (Dilaudid Inj) 1 mg Q3H PRN IV 08/19/16 01:30 09/02/16 01:29 Oxycodone/ Acetaminophen (Percocet 5-325mg Tab) `1-2 tabs for pain 1 tab ... Q4H PRN PO 08/19/16 02:30 09/02/16 02:29 08/21/16 10:58 1 TAB Heparin Sodium (Porcine) (Heparin Sq 5000 Unit/0.5ml) 5,000 unit Q8 SQ 08/19/16 22:00 09/18/16 21:59 08/21/16 13:59 5,000 UNIT Carvedilol (Coreg Tab) 3.125 mg BID PO 08/20/16 21:00 09/19/16 20:59 Lisinopril (Zestril Tab) 2.5 mg QAM PO 08/21/16 09:00 09/20/16 08:59 Epoetin Andrei (Procrit Inj) 10,000 units TODAY@0800 IV. 08/21/16 08:00 08/21/16 23:59 08/21/16 11:27 10,000 UNITS
[2016-08-21] MEDS: ACETAMINOPHEN IV 650 MG in EMPTY BAG 0 ML IV PRN (20:52)
[2016-08-21] MEDS: ALBUT/IPRATROP 3MG/0.5MG NEB 3 ML VIAL INH PRN (20:55)
[2016-08-21 20:56] LABS: HEMATOCRIT 28.8 % (42-52)
[2016-08-21] MEDS: ATORVASTATIN 20 MG TAB PO SCH (21:08)
[2016-08-21 21:43] LABS: BUN/CREATININE RATIO 6.3 (10-20); CALCIUM 8.6 mg/dl (8.5-10.1); CREATININE 6.8 mg/dl (0.60-1.40); MAGNESIUM 2.3 mg/dl (1.8-2.4); POTASSIUM 4.4 mmol/L (3.5-5.1)
[2016-08-21] MEDS: TRAMADOL HCL 50 MG TAB PO PRN (22:45)
[2016-08-21 23:39] LABS: ALLEN TEST POS (POS); ARTERIAL BLD GAS O2 SATURATION 95.9 % (90-95); ARTERIAL BLOOD GAS BASE EXCESS 4.3 mEq/L (-9-1.8); ARTERIAL BLOOD GAS HCO3 29 mmol/L (19-24); ARTERIAL BLOOD GAS PO2 92 mm/Hg (80-95); ARTERIAL BLOOD GAS pH 7.43 (7.35-7.45); O2 ADMINISTRATION 2 L O2
[2016-08-22] MEDS: HEPARIN SOD 5000 UNIT/0.5 ML CARP SQ SCH ×3 (05:59→22:30)
[2016-08-22 06:50] LABS: HEMATOCRIT 28.9 % (42-52); MEAN CELL VOLUME 76.3 fL (80-100); MEAN CORPUSCULAR HEMOGLOBIN 24.3 pg (25-34); MEAN CORPUSCULAR HGB CONC 31.8 g/dl (32-36); MEAN PLATELET VOLUME 11.1 fL (7.4-10.4); PLATELET COUNT 198 K/uL (130-400); RED BLOOD COUNT 3.79 M/uL (4.7-6.1); WHITE BLOOD COUNT 7.62 K/uL (4.8-10.8)
[2016-08-22 07:31] LABS: CALCIUM 8.7 mg/dl (8.5-10.1); CREATININE 7.7 mg/dl (0.60-1.40); POTASSIUM 4.4 mmol/L (3.5-5.1)
[2016-08-22 07:36] VITALS: BP 126/76; PULSE 82; TEMP 36.2; O2SAT 96
[2016-08-22] MEDS: CARVEDILOL 3.125 MG TAB PO SCH (08:43)
[2016-08-22] MEDS: CALCIUM ACETATE 667MG GELCAP PO SCH ×3 (08:44→17:52)
[2016-08-22] MEDS: LISINOPRIL 2.5 MG TAB PO SCH (08:44)
[2016-08-22] MEDS: TAMSULOSIN HCL 0.4 MG CAP PO SCH (08:44)
--- NOTE | 2016-08-22 09:43 | CARDIOLOGY PROGRESS NOTE ---
DATE: 08/22/2016 HISTORY OF PRESENT ILLNESS: Mr. Poon is a very pleasant 81-year-old white male with a history of CAD, status post CABG x4 vessels and porcine AVR in July 2007, hypertension, hypercholesterolemia, and conductive heart disease status post dual-chamber pacemaker placement, and end-stage renal disease on hemodialysis, who was admitted acutely on 08/17/2016 after having a mechanical fall resulting in a left humeral and left-sided rib fractures. During this hospitalization, he was noted to have reduced LV systolic function, LVEF 35%-40%. He was started on Coreg 3.125 mg b.i.d. and lisinopril 2.5 mg daily. Thus far, he is tolerating these medications without adverse side effects. Yesterday, his blood pressure was too low to titrate these medications; however, his blood pressure has increased today. The patient offers no complaints. He is very hard of hearing. He denies any chest pain or shortness of breath. He continues to have a negative fluid balance and his body weight is down 4.7 kilograms since admission. PHYSICAL EXAMINATION: VITAL SIGNS: Temperature is 36.2 degrees Celsius, pulse is 82 and regular, respiratory rate 18 and unlabored, blood pressure is 126/76, and SpO2 is 96% on room air. GENERAL: The patient is in no acute distress. HEENT: Head is atraumatic and normocephalic. EOMs intact. Sclerae are anicteric. Face is symmetric. No perioral cyanosis. Mucous membranes moist. NECK: Without thyromegaly, adenopathy or JVD. CHEST AND LUNGS: Clear to auscultation throughout all lung sheppard. No wheezes, rales or rhonchi. CARDIOVASCULAR: S1 and S2 are regular with a grade 1/6 basal systolic murmur heard best over the right second intercostal space. Aortic valve closure sound is accentuated. No diastolic murmurs appreciated. No obvious gallops or rubs. ABDOMEN: Bowel sounds present. EXTREMITIES: Without clubbing or cyanosis. Trace pretibial edema bilaterally. NEUROLOGIC: The patient is more somnolent today and less interactive. He knows who I am and is oriented to self and place. Follows commands. LABORATORY DATA: White blood cell count is 7.62, hemoglobin 9.2 g/dL, hematocrit 28.9%, and platelet count 198,000. Sodium is 136 mmol/L, potassium 4.4 mmol/L, BUN is 53 mg/dL, and creatinine 7.70 mg/dL. Troponin I from last evening is down to 0.317 ng/mL. ASSESSMENT: 1. Mechanical fall with left humeral and left-sided rib fractures. 2. Newly diagnosed Cardiomyopathy, ? pacemaker induced. LVEF 35%-40%. 3. CAD status post coronary artery bypass graft x4 vessels in 2007. 4. History of bioprosthetic aortic valve replacement in July 2007. 5. End-stage renal disease, on hemodialysis. 6. No signs or symptoms of heart failure. 7. No angina pectoris or anginal equivalent symptoms. PLAN: 1. The patient and his family members are aware of his reduced LV systolic function. 2. Increase Coreg to 3.125 mg each morning and 6.25 mg each evening. 3. Continue Lisinopril 2.5 mg daily. 4. Monitor daily I&O's, body weights. 5. Continue dialysis every Sunday, Sunday and Sunday. 6. Continue to monitor laboratories. 7. We will continue to follow along while hospitalized and as an outpatient. [facility]
[2016-08-22] MEDS: POLYETHYLENE (MIRALAX) 17 GM PACK PO PRN (11:37)
[2016-08-22] MEDS: BISACODYL 5 MG TABEC PO PRN (11:37)
[2016-08-22 13:52] VITALS: BP 98/62; PULSE 89
[2016-08-22] MEDS: TRAMADOL HCL 50 MG TAB PO PRN (14:10)
--- NOTE | 2016-08-22 15:01 | Progress Note ---
Internal Med Progress Note Date of Service: Aug 22, 2016. Provider Documentation: SUBJECTIVE: Patient is c/o nausea and a bit lethargic. Says he feels tired and not too good, but unable to specify any complaints. by bedside. Appetite- poor and didnt have much lunch No BM since admission OBJECTIVE: Vital Signs-as noted below Exam: General- Lethargic and sleepy today Neck- supple, no JVD, Lungs- clear to auscultation and percussion Heart- regular rhythm; no murmur Extremities- no calf tenderness, left shoulder swelling and pain Neuro- Lethargic and sleepy, no focal deficits grossly Lab data as noted below. ASSESSMENT & PLAN: LEFT HUMERAL FRACTURE: Status post mechanical fall -Ortho on board recommended no surgical intervention at this time-Conservative management -Pain mx- will continue with tramadol, Percocet 1 tab prn. Will discontinue IV dilaudid as drowsy RIB FRACTURES Due to mechanical fall -No hypoxia -continue incentive spirometry, but not too compliant AMBULATORY DYSFUNCTION: -xray of the hips showed Diffuse osteopenia. No acute fracture or dislocation within the pelvis or hips. -Continue PT/OT -Waiting for placement to rehab ELEVATED TROPONIN- likely from end-stage renal disease -Asymptomatic -EKG does not shown any significant ST changes. -Echo showed EF 35 to 40%; Moderate global hypokinesis of LV -Tolerated low dose of lisinopril and carvedilol well -Cardiology on board. Appreciated inputs CARDIOMYOPATHY, New diagnosis Decrease in EF when compared to previous echo. EF 35-40%, Gd II diastolic dysfunction, Moderate global hypokinesis of left ventricle Etiology unclear -Started on low dose carvedilol and lisinopril by cardiology. Increased carvedilol to 3.125 and 6.25 mg -Cardiology on board, appreciate inputs ESRD- MWF schedule -Nephro on board -No signs of overload HX OF CAD/CABG -Stable -Continue with ASA, lisinopril, Statin, Coreg (newly started) DYSLIPIDEMIA -Continue statin BPH -Continue tamsulosin. CONSTIPATION No BM since admissioN -Colace BID, Dulcolax PRN, Miralex PRN added DVT px -on heparin subq Code status: Full code DISPOSITION Okay to discharge from medical point of view, awaiting placement Consultants: nephro Ortho Vital Signs: Date Time Temp Pulse Resp B/P Pulse Ox O2 Delivery O2 Flow Rate FiO2 08/22/16 13:52 89 16 98/62 08/22/16 07:36 36.2 82 18 126/76 96 Room Air 08/22/16 00:15 Nasal Cannula 2.0 08/21/16 23:14 36.7 92 17 96/59 95 Nasal Cannula 2.0 08/21/16 21:06 85 112/69 08/21/16 20:55 81 20 97 Nasal Cannula 2.0 08/21/16 19:49 36.9 84 17 130/74 96 Nasal Cannula 2.0 08/21/16 16:15 95 Nasal Cannula 2.0 08/21/16 16:07 36.6 89 16 110/68 95 Nasal Cannula Lab Results: Results Past 24 Hours Test 08/21/16 20:45 08/21/16 23:24 08/22/16 05:25 Range/Units Hemoglobin 9.3 9.2 14.0-18.0 g/dL Hematocrit 28.8 28.9 42-52 % Sodium Level 137 136 136-145 mmol/L Potassium Level 4.4 4.4 3.5-5.1 mmol/L Chloride Level 97 95 98-107 mmol/L Carbon Dioxide Level 28 27 21-32 mmol/L Anion Gap 12.0 14.0 3-11 mmol/L Blood Urea Nitrogen 43 53 7-18 mg/dl Creatinine 6.80 7.70 0.60-1.40 mg/dl Est Creatinine Clear Calc Drug Dose 9.8 8.7 ml/min Estimated GFR () 8.0 6.9 Estimated GFR (Non- 6.9 5.9 BUN/Creatinine Ratio 6.3 7.0 10-20 Random Glucose 100 92 70-99 mg/dl Osmolality 299 280-300 mOsm/kg Calcium Level 8.6 8.7 8.5-10.1 mg/dl Magnesium Level 2.3 1.8-2.4 mg/dl Troponin I 0.317 0-0.045 ng/ml Arterial Blood pH 7.43 7.35-7.45 Arterial Blood Partial Pressure CO2 45 35-46 mmHg Arterial Blood Partial Pressure O2 92 80-95 mm/Hg Arterial Blood HCO3 29 19-24 mmol/L Arterial Blood Oxygen Saturation 95.9 90-95 % Arterial Blood Base Excess 4.3 -9-1.8 mEq/L Arterial Blood Gas Delivery 2 L O2 Carlos Manuel Test POS POS White Blood Count 7.62 4.8-10.8 K/uL Red Blood Count 3.79 4.7-6.1 M/uL Mean Corpuscular Volume 76.3 80-100 fL Mean Corpuscular Hemoglobin 24.3 25-34 pg Mean Corpuscular Hemoglobin Concent 31.8 32-36 g/dl RDW Standard Deviation 41.9 36.4-46.3 fL RDW Coefficient of Variation 15.3 11.5-14.5 % Platelet Count 198 130-400 K/uL Mean Platelet Volume 11.1 7.4-10.4 fL
[2016-08-22 15:15] VITALS: O2SAT 96
[2016-08-22 15:53] VITALS: BP 117/70; PULSE 76; TEMP 36.7; O2SAT 96
[2016-08-22] MEDS ORDERED: OXYCODONE/ACETAMINOPHEN 5-325 TAB PO PRN (18:30)
--- NOTE | 2016-08-22 20:57 | Progress Note ---
Progress Note TITLE I MATH TUTOR ATTENDING NOTE : updated by Nursing -pt's family ( son and Daughter at bedside ) very concerned regarding pt's changed mental status /somnolence and lethargy unable to answer questions appropriately, poor PO intake did not eat lunch /dinner -due to lethargy/sleeping concern about Dialysis tomorrow which may make pt more dehydrated evaluated pt at bedside : opens eyes to voice , falls to sleep in mid conversation denies of any pain or discomfort needs to be asked repeatedly Per family -markedly changed mental status form baseline reviewed labs : no evidence of sepsis or infection ordered for Percocet /Tramadol PRN last dose was at 1 pm -as pt was having pain on left rib area after PT no neurological deficit notes -moving all limbs , no facial droop , no dysarthria \ possible due to Narcotic pain meds -long half life due to poor renal clearance ordered to hold pain meds -pt does not have any discomfort -possible Lidoderm patch or non narcotic pain medications would be preferable CMP /ammonia level ordered normal Ammonia /LFT Cr 8.7 -scheduled for HD tomorrow Family updated at bedside , questions answered will update AM provider
[2016-08-22] MEDS: DOCUSATE SODIUM 100 MG CAP PO SCH (21:00)
[2016-08-22] MEDS: ATORVASTATIN 20 MG TAB PO SCH (21:00)
[2016-08-22] MEDS: CARVEDILOL 6.25 MG TAB PO SCH (21:00)
[2016-08-22 21:10] VITALS: BP 108/64; PULSE 75; TEMP 37.3; O2SAT 96
[2016-08-22 21:54] LABS: ALB/GLOB RATIO 0.6 (0.9-2); BUN/CREATININE RATIO 7.8 (10-20); CALCIUM 8.7 mg/dl (8.5-10.1); CREATININE 8.7 mg/dl (0.60-1.40)
[2016-08-22 23:05] VITALS: BP 123/71; PULSE 71; TEMP 36.6; O2SAT 95
[2016-08-23] VITALS (22 sets, daily range): BP systolic 81–120; BP diastolic 41–91; PULSE 68–86; TEMP 36.2–36.9; O2SAT 94–100
[2016-08-23] MEDS: HEPARIN SOD 5000 UNIT/0.5 ML CARP SQ SCH ×3 (05:49→21:46)
[2016-08-23] MEDS ORDERED: EPOETIN ALFA 10,000 UNITS/ML VIAL IV. SCH (07:30)
--- NOTE | 2016-08-23 07:35 | PROGRESS NOTE ---
DATE: 08/23/2016 SUBJECTIVE: The patient is minimally confused this morning, not alert and does respond to pain. OBJECTIVE: 36.8 temperature and other vital signs stable. LABORATORY DATA: 28.9 hematocrit, creatinine elevated at 8.7, and glucose 100. IMAGING DATA: X-rays not indicated today. ASSESSMENT: Status post left proximal humerus fracture and rib fractures, admitted with confusion and renal toxicity. DISPOSITION: We will keep ice on his shoulder. We will try to get him out of bed to chair. He is scheduled for dialysis. His shoulder is a nonsurgical issue. We will try to back off some the narcotics for pain as well.
[2016-08-23] MEDS: DOCUSATE SODIUM 100 MG CAP PO SCH ×2 (07:50→20:49)
[2016-08-23] MEDS: CALCIUM ACETATE 667MG GELCAP PO SCH ×3 (07:50→17:45)
[2016-08-23] MEDS: TAMSULOSIN HCL 0.4 MG CAP PO SCH (07:50)
[2016-08-23 08:03] LABS: MEAN CELL VOLUME 76.1 fL (80-100); MEAN CORPUSCULAR HEMOGLOBIN 24.7 pg (25-34); MEAN CORPUSCULAR HGB CONC 32.5 g/dl (32-36); MEAN PLATELET VOLUME 10.8 fL (7.4-10.4); PLATELET COUNT 211 K/uL (130-400); RED BLOOD COUNT 3.68 M/uL (4.7-6.1); WHITE BLOOD COUNT 8.15 K/uL (4.8-10.8)
[2016-08-23] MEDS ORDERED: NALOXONE HCL 0.4 MG/1 ML VIAL/CARP IV STA ×2 (08:05→15:31)
[2016-08-23] MEDS: CARVEDILOL 3.125 MG TAB PO SCH (08:30)
--- NOTE | 2016-08-23 08:34 | DIAGNOSTIC IMAGING REPORT ---
SINGLE VIEW CHEST CLINICAL HISTORY: Dyspnea. FINDINGS: An AP, portable, upright chest radiograph is compared to study dated 08/17/16 and correlated with chest CT dated 04/24/2009. The examination is significantly degraded by portable technique and patient rotation. A 2-lead cardiac pacemaker is unchanged in position. The patient is status post midline sternotomy. The heart is enlarged and there is atherosclerotic calcification of the thoracic aorta. The pulmonary vasculature is noncongested. There are low lung volumes with bibasilar atelectasis. Small pleural effusions are identified. There is no airspace consolidation typical for pneumonia. No pneumothorax is seen. The skeletal structures are osteopenic. The bony thorax is grossly intact. IMPRESSION: 1. Cardiomegaly and cardiac pacemaker. There is no radiographic evidence of congestive failure. 2. Small pleural effusions. Electronically signed by: Star Aleman M.D. 08/23/2016 8:33 AM Dictated Date/Time: 08/23/2016 8:31 AM
[2016-08-23] MEDS: LISINOPRIL 2.5 MG TAB PO SCH (08:39)
[2016-08-23 08:47] LABS: BUN/CREATININE RATIO 7.8 (10-20); CALCIUM 9.2 mg/dl (8.5-10.1); CREATININE 9.7 mg/dl (0.60-1.40)
--- NOTE | 2016-08-23 09:25 | Progress Note ---
Internal Med Progress Note Date of Service: Aug 23, 2016. Provider Documentation: SUBJECTIVE: Patient's mental status deteriorated overnight. Very somnolent, difficult to arouse. Narcotics were held. On my evaluation today AM, sitting upright and oriented to place, person, more awake but still falls asleep in between conversations. No BM yet. Son by bedside. OBJECTIVE: Vital Signs-as noted below Exam: General- More awake, but does tend to doze off in between conversations, oriented to place, person, not to time. HEENT- Pin point pupils Neck- supple, no JVD, Lungs- clear to auscultation and percussion Heart- regular rhythm; no murmur Extremities- no calf tenderness, left shoulder swelling and pain Neuro- Mental status- as above, No focal deficits Lab data as noted below. ASSESSMENT & PLAN: METABOLIC ENCEPHALOPATHY : Likely related to narcotics. On exam- pin point pupils, lethargic but more awake than yesterday, dozes off in between conversations--likely pain meds related in setting of poor renal clearance/ESRD. -Discontinued IV and PO narcotics including tramadol -Tylenol IV PRN. If pain not controlled, would consider lidoderm patch. -Will re - evaluate his post dialysis LEFT HUMERAL FRACTURE : Status post mechanical fall -Ortho on board recommended no surgical intervention at this time-Conservative management- Ice application -Pain mx- Discontinued IV and PO narcotics due to change in mental status likely sec to meds. Tylenol IV PRN. Denies any pain at this time. RIB FRACTURES : Due to mechanical fall -On 2 L of oxygen today -Continue incentive spirometry, but not too compliant ELEVATED TROPONIN- likely from end-stage renal disease -Asymptomatic -EKG does not shown any significant ST changes. -Echo showed EF 35 to 40%; Moderate global hypokinesis of LV -Tolerated low dose of lisinopril and carvedilol well which was started this admission by cardiology -Cardiology on board. Appreciated inputs. CARDIOMYOPATHY, New diagnosis - Decrease in EF when compared to previous echo. EF 35-40%, Gd II diastolic dysfunction, Moderate global hypokinesis of left ventricle Etiology unclear -Started on low dose carvedilol and lisinopril by cardiology. Increased carvedilol to 3.125 and 6.25 mg on 08/22/16 -Cardiology on board, appreciate inputs ESRD- MWF schedule -Nephro on board -No signs of overload HX OF CAD/CABG -Stable -Continue with ASA, lisinopril, Statin, Coreg (newly started) AMBULATORY DYSFUNCTION: -xray of the hips showed Diffuse osteopenia. No acute fracture or dislocation within the pelvis or hips. -Continue PT/OT -Waiting for placement to rehab DYSLIPIDEMIA -Continue statin BPH -Continue tamsulosin. CONSTIPATION No BM since admissioN -Colace BID, Dulcolax PRN, Miralex PRN added DVT px -on heparin subq Code status: Full code DISPOSITION Will re evaluate mental status post dialysis. Needs to go to rehab- awaiting bed Discussed at length with son by bedside. Consultants: nephro Ortho Vital Signs: Date Time Temp Pulse Resp B/P Pulse Ox O2 Delivery O2 Flow Rate FiO2 08/23/16 07:50 Nasal Cannula 2.0 08/23/16 06:57 36.8 77 16 120/60 94 4.0 08/22/16 23:45 Nasal Cannula 2.0 08/22/16 23:05 36.6 71 16 123/71 95 Nasal Cannula 2.0 08/22/16 21:10 37.3 75 18 108/64 96 Nasal Cannula 2.0 08/22/16 15:53 36.7 76 18 117/70 96 Nasal Cannula 2.0 08/22/16 15:15 96 Nasal Cannula 2.0 08/22/16 13:52 89 16 98/62 Lab Results: Results Past 24 Hours Test 08/22/16 21:05 08/23/16 07:18 Range/Units Sodium Level 135 135 136-145 mmol/L Potassium Level 5.0 5.0 3.5-5.1 mmol/L Chloride Level 94 95 98-107 mmol/L Carbon Dioxide Level 28 24 21-32 mmol/L Anion Gap 13.0 16.0 3-11 mmol/L Blood Urea Nitrogen 68 76 7-18 mg/dl Creatinine 8.70 9.70 0.60-1.40 mg/dl Est Creatinine Clear Calc Drug Dose 7.7 6.9 ml/min Estimated GFR () 5.9 5.2 Estimated GFR (Non- 5.1 4.5 BUN/Creatinine Ratio 7.8 7.8 10-20 Random Glucose 101 93 70-99 mg/dl Calcium Level 8.7 9.2 8.5-10.1 mg/dl Total Bilirubin 0.4 0.2-1 mg/dl Aspartate Amino Transf (AST/SGOT) 27 15-37 U/L Alanine Aminotransferase (ALT/SGPT) 22 12-78 U/L Alkaline Phosphatase 87 45-117 U/L Ammonia 19.0 11-32 umol/L Total Protein 6.9 6.4-8.2 gm/dl Albumin 2.7 3.4-5.0 gm/dl Globulin 4.2 2.5-4.0 gm/dl Albumin/Globulin Ratio 0.6 0.9-2 White Blood Count 8.15 4.8-10.8 K/uL Red Blood Count 3.68 4.7-6.1 M/uL Hemoglobin 9.1 14.0-18.0 g/dL Hematocrit 28.0 42-52 % Mean Corpuscular Volume 76.1 80-100 fL Mean Corpuscular Hemoglobin 24.7 25-34 pg Mean Corpuscular Hemoglobin Concent 32.5 32-36 g/dl RDW Standard Deviation 41.1 36.4-46.3 fL RDW Coefficient of Variation 15.1 11.5-14.5 % Platelet Count 211 130-400 K/uL Mean Platelet Volume 10.8 7.4-10.4 fL
--- NOTE | 2016-08-23 10:36 | Dialysis Progress Note ---
Nephrology Dialysis Note Date of Service: Aug 23, 2016. Subjective 81 yo male with esrd who fell and had humerus fracture. arm in sling. pt seen in dialysis. pt awake but sleepy from pain meds. pt knows the year and where he is and able to answer questions but then goes to sleep without stimulation. although recently given pain meds in anticipation of dialysis. Objective Date Time Temp Pulse Resp B/P Pulse Ox O2 Delivery O2 Flow Rate FiO2 08/23/16 07:50 Nasal Cannula 2.0 08/23/16 06:57 36.8 77 16 120/60 94 4.0 08/22/16 23:45 Nasal Cannula 2.0 08/22/16 23:05 36.6 71 16 123/71 95 Nasal Cannula 2.0 08/22/16 21:10 37.3 75 18 108/64 96 Nasal Cannula 2.0 08/22/16 15:53 36.7 76 18 117/70 96 Nasal Cannula 2.0 08/22/16 15:15 96 Nasal Cannula 2.0 08/22/16 13:52 89 16 98/62 Physical Exam: General-aaox3, lethargic Eyes-no scleral icterus ENT-mmm Neck-supple Lungs-clear Heart-regular Abdomen-bs+ s/nt/nd Extremities-left arm in sling, no edema in legs Neuro-sleepy Current Inpatient Medications Medications (Trade) Dose Ordered Sig/Daniel Route Start Time Stop Time Status Last Admin Dose Admin Atorvastatin Calcium (Lipitor Tab) 20 mg QPM PO 08/17/16 21:00 09/16/16 20:59 08/21/16 21:08 20 MG Calcium Acetate (Phoslo Cap) 1,334 mg TIDM PO 08/18/16 08:30 09/17/16 08:29 08/23/16 07:50 1,334 MG Tamsulosin HCl (Flomax Cap) 0.4 mg DAILY PO 08/18/16 09:00 09/17/16 08:59 08/23/16 07:50 0.4 MG Acetaminophen (Tylenol Tab) 650 mg Q4H PRN PO 08/17/16 16:45 09/16/16 16:44 Ondansetron HCl (Zofran Inj) 4 mg Q6H PRN IV 08/17/16 16:45 09/16/16 16:44 Albuterol/ Ipratropium (Duoneb) 3 ml Q2H PRN INH 08/17/16 19:45 09/16/16 19:44 08/21/16 20:55 3 ML Heparin Sodium (Porcine) (Heparin Sq 5000 Unit/0.5ml) 5,000 unit Q8 SQ 08/19/16 22:00 09/18/16 21:59 08/23/16 05:49 5,000 UNIT Lisinopril (Zestril Tab) 2.5 mg QAM PO 08/21/16 09:00 09/20/16 08:59 08/22/16 08:44 2.5 MG Tramadol HCl 50 mg 50 mg Q4H PRN PO 08/21/16 16:45 09/20/16 16:44 Future Hold 08/22/16 14:10 50 MG Acetaminophen/ Empty Bag (Ofirmev IV/ Empty Iv Bag 100ml) 65 ml @ 260 mls/hr Q6H PRN IV 08/21/16 20:30 09/20/16 20:29 08/21/16 20:52 260 MLS/HR Carvedilol (Coreg Tab) 3.125 mg QDB PO 08/23/16 08:30 09/22/16 08:29 Carvedilol (Coreg Tab) 6.25 mg HS PO 08/22/16 21:00 09/21/16 20:59 Docusate Sodium (coLACE CAP) 100 mg BID PO 08/22/16 21:00 09/21/16 20:59 08/23/16 07:50 100 MG Polyethylene (Miralax Powder Packet) 17 gm DAILY PRN PO 08/22/16 11:30 09/21/16 11:29 08/22/16 11:37 17 GM Bisacodyl (Dulcolax Tab) 5 mg BID PRN PO 08/22/16 11:00 09/21/16 10:59 08/22/16 11:37 5 MG Oxycodone/ Acetaminophen (Percocet 5-325mg Tab) `1-2 tabs for pain 1 tab ... Q4H PRN PO 08/22/16 18:30 09/05/16 18:29 Future Hold Epoetin Andrei (Procrit Inj) 10,000 units TODAY@0730 IV. 08/23/16 07:30 08/23/16 18:00 Last 24 Hours Test 08/22/16 21:05 08/23/16 07:18 Sodium Level 135 mmol/L 135 mmol/L Potassium Level 5.0 mmol/L 5.0 mmol/L Chloride Level 94 mmol/L 95 mmol/L Carbon Dioxide Level 28 mmol/L 24 mmol/L Anion Gap 13.0 mmol/L 16.0 mmol/L Blood Urea Nitrogen 68 mg/dl 76 mg/dl Creatinine 8.70 mg/dl 9.70 mg/dl Est Creatinine Clear Calc Drug Dose 7.7 ml/min 6.9 ml/min Estimated GFR () 5.9 5.2 Estimated GFR (Non- 5.1 4.5 BUN/Creatinine Ratio 7.8 7.8 Random Glucose 101 mg/dl 93 mg/dl Calcium Level 8.7 mg/dl 9.2 mg/dl Total Bilirubin 0.4 mg/dl Aspartate Amino Transf (AST/SGOT) 27 U/L Alanine Aminotransferase (ALT/SGPT) 22 U/L Alkaline Phosphatase 87 U/L Ammonia 19.0 umol/L Total Protein 6.9 gm/dl Albumin 2.7 gm/dl Globulin 4.2 gm/dl Albumin/Globulin Ratio 0.6 White Blood Count 8.15 K/uL Red Blood Count 3.68 M/uL Hemoglobin 9.1 g/dL Hematocrit 28.0 % Mean Corpuscular Volume 76.1 fL Mean Corpuscular Hemoglobin 24.7 pg Mean Corpuscular Hemoglobin Concent 32.5 g/dl RDW Standard Deviation 41.1 fL RDW Coefficient of Variation 15.1 % Platelet Count 211 K/uL Mean Platelet Volume 10.8 fL Assessment & Plan ESRD-seen on dialysis. sleepy from pain meds. 2k bath, 2 liter uf. k of 5 and should improve with 2k bath. Anemia of renal failure-pt is a [employer] and does not want blood products. continue procrit to keep hg between 10 and 11. last hg of 9.1.
--- NOTE | 2016-08-23 11:31 | CARDIOLOGY PROGRESS NOTE ---
DATE: 08/23/2016 DATE: 08/23/2016. SUBJECTIVE: Mr. Poon is resting comfortably in bed without complaints of chest pain or dyspnea. Orthopedic pain is adequately controlled. OBJECTIVE: VITAL SIGNS: Blood pressure is 120/60 with a regular pulse of 77. Respiratory rate is 16. The patient is afebrile at 36.8 degrees Celsius. Saturations 94% on 4 liters nasal cannula. NECK: Supple with full carotid upstrokes. There are no carotid bruits. Jugular venous pressure is difficult to assess. CARDIOVASCULAR EXAMINATION: Reveals a regular rhythm with a 1/6 basal systolic ejection murmur. Valve sounds are crisp. No obvious murmurs. LUNGS: Clear without rales, rhonchi, or wheezes. ABDOMEN: Soft without bruits. EXTREMITIES: Reveal intact radial artery pulses bilaterally. Trace pretibial edema is noted. LABORATORY DATA: CBC notes a hemoglobin of 9.1, hematocrit 28.0, white count 8.1, platelet count 211,000. Electrolytes note a sodium of 135, potassium 5.0, chloride 95, bicarbonate 24, BUN 76, creatinine 9.7, glucose 93. IMPRESSION AND PLAN: 1. Cardiomyopathy -- ejection fraction of 35-40%. Etiology not certain. Has tolerated the addition of carvedilol and lisinopril. Carvedilol was increased yesterday without difficulty. Would continue medical management for now. 2. Coronary artery disease -- status post coronary artery bypass graft x4 in July 2007. 3. 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 4. Status post DDD pacemaker -- may need to consider revision to a biventricular ICD. Will discuss further as an outpatient. 5. Hypertension -- controlled. 6. Hypercholesterolemia. 7. Status post mechanical fall -- per orthopedics. 8. End-stage renal disease -- on chronic dialysis.
[2016-08-23] MEDS: ACETAMINOPHEN IV 650 MG in EMPTY BAG 0 ML IV PRN (16:44)
[2016-08-23] MEDS: BOOST BREEZE NUTRITION DRINK 1 BOX PO SCH ×2 (17:45→18:23)
[2016-08-23] MEDS: ATORVASTATIN 20 MG TAB PO SCH (20:49)
[2016-08-23] MEDS: CARVEDILOL 6.25 MG TAB PO SCH (20:49)
[2016-08-23] MEDS: POLYETHYLENE (MIRALAX) 17 GM PACK PO PRN (20:51)
[2016-08-24] VITALS (9 sets, daily range): BP systolic 87–112; BP diastolic 50–73; PULSE 69–81; TEMP 36.3–36.7; O2SAT 85–96
[2016-08-24] MEDS: ACETAMINOPHEN IV 650 MG in EMPTY BAG 0 ML IV PRN (00:30)
[2016-08-24] MEDS: HEPARIN SOD 5000 UNIT/0.5 ML CARP SQ SCH ×3 (06:00→21:27)
[2016-08-24] MEDS: CARVEDILOL 3.125 MG TAB PO SCH (08:00)
[2016-08-24] MEDS: POLYETHYLENE (MIRALAX) 17 GM PACK PO PRN (08:06)
[2016-08-24] MEDS: BOOST BREEZE NUTRITION DRINK 1 BOX PO SCH ×2 (08:06→19:55)
[2016-08-24] MEDS: BISACODYL 5 MG TABEC PO PRN ×2 (08:06→18:36)
[2016-08-24] MEDS: TAMSULOSIN HCL 0.4 MG CAP PO SCH (08:07)
[2016-08-24] MEDS: LISINOPRIL 2.5 MG TAB PO SCH (08:08)
[2016-08-24] MEDS: DOCUSATE SODIUM 100 MG CAP PO SCH ×2 (08:08→21:26)
[2016-08-24] MEDS: CALCIUM ACETATE 667MG GELCAP PO SCH ×3 (08:09→18:36)
[2016-08-24] MEDS: ALBUTEROL 0.083% NEBU SOLN 3 ML VIAL INH SCH ×3 (09:00→20:08)
[2016-08-24 10:55] LABS: HEMATOCRIT 31.2 % (42-52); MEAN CELL VOLUME 75.9 fL (80-100); MEAN CORPUSCULAR HEMOGLOBIN 23.8 pg (25-34); MEAN CORPUSCULAR HGB CONC 31.4 g/dl (32-36); MEAN PLATELET VOLUME 10.3 fL (7.4-10.4); PLATELET COUNT 246 K/uL (130-400); RED BLOOD COUNT 4.11 M/uL (4.7-6.1); WHITE BLOOD COUNT 10.19 K/uL (4.8-10.8)
--- NOTE | 2016-08-24 11:07 | Progress Note ---
Internal Med Progress Note Date of Service: Aug 24, 2016. Provider Documentation: SUBJECTIVE: Patient's mental status has improved today. Awake, oriented to place but more cooperative, following commands, motivated to ambulate. Did have his breakfast today- large bowl of cereals. No BM yet OOB to chair today with assistance from OT/PT Off oxygen Son by bedside. OBJECTIVE: Vital Signs-as noted below Exam: General- Mental status improved today- Awake, oriented x 1, still confused, no distress HEENT- Pin point pupils- improved Neck- supple, no JVD Lungs- AEBE decreased, no wheezing Heart- regular rhythm; no murmur Extremities- Left arm pain - sling + Neuro- Mental status- as above, No focal deficits Lab data as noted below. ASSESSMENT & PLAN: METABOLIC ENCEPHALOPATHY : Improved Multifactorial: Narcotics for pain mx, Pain from rib/left humerus fracture/ Prolonged hospitalization causing delirium. On exam- pin point pupils, lethargic but more awake than yesterday, dozes off in between conversations-- likely pain meds related in setting of poor renal clearance/ESRD. -Discontinued IV and PO narcotics including tramadol. Received a dose of IV Narcan on 08/23/16 - responded. -Monitor closely LEFT HUMERAL FRACTURE : Status post mechanical fall -Ortho on board recommended no surgical intervention at this time-Conservative management- Ice application -Pain mx- Discontinued IV and PO narcotics due to change in mental status likely sec to meds. Tylenol IV PRN. Denies any pain at this time. RIB FRACTURES : Due to mechanical fall -Off oxygen -Continue incentive spirometry, but not too compliant ELEVATED TROPONIN- likely from end-stage renal disease -Asymptomatic -EKG does not shown any significant ST changes. -Echo showed EF 35 to 40%; Moderate global hypokinesis of LV -Tolerated low dose of lisinopril and carvedilol well which was started this admission by cardiology -Cardiology on board. Appreciated inputs. CARDIOMYOPATHY, New diagnosis - Decrease in EF when compared to previous echo. EF 35-40%, Gd II diastolic dysfunction, Moderate global hypokinesis of left ventricle Etiology unclear -Started on low dose carvedilol and lisinopril by cardiology. Increased carvedilol to 3.125 and 6.25 mg on 08/22/16 -Cardiology on board, appreciate inputs ESRD- MWF schedule -Nephro on board -No signs of overload HX OF CAD/CABG -Stable -Continue with ASA, lisinopril, Statin, Coreg (newly started) AMBULATORY DYSFUNCTION: -xray of the hips showed Diffuse osteopenia. No acute fracture or dislocation within the pelvis or hips. -Continue PT/OT DYSLIPIDEMIA -Continue statin BPH -Continue tamsulosin. CONSTIPATION No BM since admissioN -Colace BID, Dulcolax PRN, Miralex PRN added but wasnt able to take PO due to mental status DVT px -on heparin subq Code status: Full code DISPOSITION To be determined. Will need rehab post discharge. Need to continue to monitor mental status. Discussed at length with son by bedside. Consultants: nephro Ortho Vital Signs: Date Time Temp Pulse Resp B/P Pulse Ox O2 Delivery O2 Flow Rate FiO2 08/24/16 07:45 36.3 69 16 96/57 94 Room Air 08/24/16 07:30 Room Air 08/23/16 23:58 36.2 72 18 97/62 100 Nasal Cannula 3.0 08/23/16 23:22 Nasal Cannula 2.0 08/23/16 20:43 79 106/60 08/23/16 16:08 79 109/58 08/23/16 16:00 100 Nasal Cannula 3.0 08/23/16 15:38 81 20 115/54 98 Nasal Cannula 08/23/16 14:35 36.9 82 16 95/61 100 Nasal Cannula 3.0 08/23/16 14:21 36.7 79 82/50 08/23/16 13:45 78 81/48 08/23/16 13:30 86 81/52 08/23/16 13:15 81 82/43 08/23/16 13:00 68 85/41 08/23/16 12:45 78 88/49 08/23/16 12:30 80 90/52 08/23/16 12:15 76 84/46 08/23/16 12:00 78 89/41 08/23/16 11:45 74 99/54 08/23/16 11:30 76 90/48 08/23/16 11:15 77 95/48 08/23/16 11:00 74 110/91 Lab Results: Results Past 24 Hours Test 08/24/16 10:48 Range/Units White Blood Count 10.19 4.8-10.8 K/uL Red Blood Count 4.11 4.7-6.1 M/uL Hemoglobin 9.8 14.0-18.0 g/dL Hematocrit 31.2 42-52 % Mean Corpuscular Volume 75.9 80-100 fL Mean Corpuscular Hemoglobin 23.8 25-34 pg Mean Corpuscular Hemoglobin Concent 31.4 32-36 g/dl RDW Standard Deviation 41.4 36.4-46.3 fL RDW Coefficient of Variation 15.4 11.5-14.5 % Platelet Count 246 130-400 K/uL Mean Platelet Volume 10.3 7.4-10.4 fL
[2016-08-24 11:42] LABS: BUN/CREATININE RATIO 7.8 (10-20)
[2016-08-24 11:43] LABS: CREATININE 7.9 mg/dl (0.60-1.40)
--- NOTE | 2016-08-24 16:30 | Progress Note ---
Progress Note ADDENDUM: Patient's conveyed that patient had chest pain. On my evaluation, patient is disoriented x 3, confused, denies any chest pain On palpation, reproducible chest tenderness. EKG done- Sinus rhythm with 1st degree AV block, RBBB, Left ant fascicular block , no change than prior EKG Will continue to monitor patient's mental status Updated by bedside.
[2016-08-24] MEDS: ATORVASTATIN 20 MG TAB PO SCH (21:26)
[2016-08-24] MEDS: CARVEDILOL 6.25 MG TAB PO SCH (21:34)
[2016-08-25] VITALS (18 sets, daily range): BP systolic 80–164; BP diastolic 36–94; PULSE 55–91; TEMP 36.5–37.3; O2SAT 92–95
[2016-08-25] MEDS: ALBUTEROL 0.083% NEBU SOLN 3 ML VIAL INH SCH ×4 (01:45→19:05)
[2016-08-25] MEDS: HEPARIN SOD 5000 UNIT/0.5 ML CARP SQ SCH ×3 (05:06→21:20)
[2016-08-25 06:34] LABS: HEMATOCRIT 29.8 % (42-52); MEAN CELL VOLUME 75.8 fL (80-100); MEAN CORPUSCULAR HEMOGLOBIN 24.2 pg (25-34); MEAN CORPUSCULAR HGB CONC 31.9 g/dl (32-36); PLATELET COUNT 258 K/uL (130-400); RED BLOOD COUNT 3.93 M/uL (4.7-6.1); WHITE BLOOD COUNT 9.74 K/uL (4.8-10.8)
[2016-08-25] MEDS: CARVEDILOL 3.125 MG TAB PO SCH (07:19)
[2016-08-25] MEDS: BOOST BREEZE NUTRITION DRINK 1 BOX PO SCH ×2 (07:23→17:45)
[2016-08-25] MEDS: BISACODYL 5 MG TABEC PO PRN (07:23)
[2016-08-25] MEDS: POLYETHYLENE (MIRALAX) 17 GM PACK PO PRN (07:23)
[2016-08-25] MEDS: CALCIUM ACETATE 667MG GELCAP PO SCH ×3 (07:23→17:45)
[2016-08-25] MEDS: LISINOPRIL 2.5 MG TAB PO SCH (07:27)
[2016-08-25] MEDS: DOCUSATE SODIUM 100 MG CAP PO SCH ×2 (07:27→21:00)
[2016-08-25] MEDS: TAMSULOSIN HCL 0.4 MG CAP PO SCH (07:28)
[2016-08-25] MEDS ORDERED: EPOETIN ALFA 10,000 UNITS/ML VIAL IV. SCH (09:00)
--- NOTE | 2016-08-25 09:33 | Nephrology Progress Note ---
Nephrology Progress Note Date of Service: Aug 25, 2016. Subjective 81 yo male with esrd who fell and had humerus fracture. arm in sling. pt has been very confused and required narcan which did help wake up patient. confusion likely related to pain medications. pt also is very weak since admission and continues to get weaker. pts mental status this morning is better and he has his sense of humor. spoke to son at length. spoke to daughter over the phone yesterday. pt was started on coreg and lisinopril, both low dose and bp is good. however, wonder if meds are contributing to the weakness. Objective Date Time Temp Pulse Resp B/P Pulse Ox O2 Delivery O2 Flow Rate FiO2 08/25/16 07:50 Nasal Cannula 2.0 08/25/16 06:31 36.5 75 18 100/60 92 Nasal Cannula 2.0 08/24/16 23:15 Nasal Cannula 2.0 08/24/16 23:05 96 Nasal Cannula 2.0 08/24/16 23:02 36.7 81 18 110/73 85 Room Air 08/24/16 21:15 98/60 08/24/16 20:08 77 18 95 Room Air 08/24/16 15:45 95 Room Air 08/24/16 15:43 73 19 112/59 95 Room Air 08/24/16 14:47 71 20 94 Room Air 08/24/16 10:44 94 Physical Exam: General-aaox3, tired, periods of delirium Eyes-no scleral icterus ENT-mmm Neck-supple Lungs-cta Heart-regular Abdomen-bs+ s/nt/nd Extremities-left arm in sling, no edema Neuro-tired, periods of delirium Current Inpatient Medications Medications (Trade) Dose Ordered Sig/Daniel Route Start Time Stop Time Status Last Admin Dose Admin Atorvastatin Calcium (Lipitor Tab) 20 mg QPM PO 08/17/16 21:00 09/16/16 20:59 08/24/16 21:26 20 MG Calcium Acetate (Phoslo Cap) 1,334 mg TIDM PO 08/18/16 08:30 09/17/16 08:29 08/25/16 07:23 1,334 MG Tamsulosin HCl (Flomax Cap) 0.4 mg DAILY PO 08/18/16 09:00 09/17/16 08:59 08/25/16 07:28 0.4 MG Acetaminophen (Tylenol Tab) 650 mg Q4H PRN PO 08/17/16 16:45 09/16/16 16:44 Ondansetron HCl (Zofran Inj) 4 mg Q6H PRN IV 08/17/16 16:45 09/16/16 16:44 Albuterol/ Ipratropium (Duoneb) 3 ml Q2H PRN INH 08/17/16 19:45 09/16/16 19:44 08/21/16 20:55 3 ML Heparin Sodium (Porcine) (Heparin Sq 5000 Unit/0.5ml) 5,000 unit Q8 SQ 08/19/16 22:00 09/18/16 21:59 08/25/16 05:06 5,000 UNIT Lisinopril (Zestril Tab) 2.5 mg QAM PO 08/21/16 09:00 09/20/16 08:59 08/25/16 07:27 2.5 MG Tramadol HCl 50 mg 50 mg Q4H PRN PO 08/21/16 16:45 09/20/16 16:44 Future Hold 08/22/16 14:10 50 MG Acetaminophen/ Empty Bag (Ofirmev IV/ Empty Iv Bag 100ml) 65 ml @ 260 mls/hr Q6H PRN IV 08/21/16 20:30 09/20/16 20:29 08/24/16 00:30 260 MLS/HR Carvedilol (Coreg Tab) 3.125 mg QDB PO 08/23/16 08:30 09/22/16 08:29 Carvedilol (Coreg Tab) 6.25 mg HS PO 08/22/16 21:00 09/21/16 20:59 08/23/16 20:49 6.25 MG Docusate Sodium (coLACE CAP) 100 mg BID PO 08/22/16 21:00 09/21/16 20:59 08/25/16 07:27 100 MG Polyethylene (Miralax Powder Packet) 17 gm DAILY PRN PO 08/22/16 11:30 09/21/16 11:29 08/25/16 07:23 17 GM Bisacodyl (Dulcolax Tab) 5 mg BID PRN PO 08/22/16 11:00 09/21/16 10:59 08/25/16 07:23 5 MG Oxycodone/ Acetaminophen (Percocet 5-325mg Tab) `1-2 tabs for pain 1 tab ... Q4H PRN PO 08/22/16 18:30 09/05/16 18:29 Future Hold Enteral Nutritional Formula (Boost Breeze Nutritional Drink) 1 box BIDM PO 08/23/16 17:45 09/22/16 17:44 08/25/16 07:23 1 BOX Albuterol Sulfate (Ventolin 0.083% 2.5MG/3ML Neb) 2.5 mg Q6R INH 08/24/16 09:00 09/23/16 08:59 08/25/16 07:23 2.5 MG Epoetin Andrei (Procrit Inj) 10,000 units TODAY@0900 IV. 08/25/16 09:00 08/25/16 18:00 Last 24 Hours Test 08/24/16 10:48 08/25/16 05:35 White Blood Count 10.19 K/uL 9.74 K/uL Red Blood Count 4.11 M/uL 3.93 M/uL Hemoglobin 9.8 g/dL 9.5 g/dL Hematocrit 31.2 % 29.8 % Mean Corpuscular Volume 75.9 fL 75.8 fL Mean Corpuscular Hemoglobin 23.8 pg 24.2 pg Mean Corpuscular Hemoglobin Concent 31.4 g/dl 31.9 g/dl RDW Standard Deviation 41.4 fL 41.2 fL RDW Coefficient of Variation 15.4 % 15.3 % Platelet Count 246 K/uL 258 K/uL Mean Platelet Volume 10.3 fL 11.0 fL Sodium Level 135 mmol/L Potassium Level 4.0 mmol/L Chloride Level 96 mmol/L Carbon Dioxide Level 24 mmol/L Anion Gap 15.0 mmol/L Blood Urea Nitrogen 61 mg/dl Creatinine 7.90 mg/dl Est Creatinine Clear Calc Drug Dose 8.6 ml/min Estimated GFR () 6.6 Estimated GFR (Non- 5.7 BUN/Creatinine Ratio 7.8 Random Glucose 127 mg/dl Calcium Level 9.0 mg/dl Assessment & Plan ESRD-pt for dialysis today. continues to have intermittent delirium. volume status is appropriate. will plan on 2l uf today. continue dialysis m/w/f. 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 continue procrit. hg 9.5 at last check. goal is 10 to 11. MARIA E-on phoslo 2 po tid with meals and will follow phos levels periodically.
--- NOTE | 2016-08-25 11:26 | Progress Note ---
Internal Med Progress Note Date of Service: Aug 25, 2016. Provider Documentation: SUBJECTIVE: Patient is awake, oriented to place only but more cooperative, following commands, motivated to ambulate. Soreness in left arm + Tolerating PO well. No BM yet OBJECTIVE: Vital Signs-as noted below Exam: General- Mental status improved today- Awake, oriented x 1, still confused, no distress HEENT- Pin point pupils- improved Neck- supple, no JVD Lungs- AEBE decreased, no wheezing Heart- regular rhythm; no murmur Extremities- Left arm pain - sling + Neuro- Mental status- as above, No focal deficits Lab data as noted below. ASSESSMENT & PLAN: METABOLIC ENCEPHALOPATHY : Improving slowly Multifactorial: Narcotics for pain mx, Pain from rib/left humerus fracture/ Prolonged hospitalization causing delirium. On exam - pin point pupils, lethargic but more awake now, dozes off -likely pain meds related in setting of poor renal clearance/ESRD. -Discontinued IV and PO narcotics including tramadol on 08/22 & 08/23. Received a dose of IV Narcan on 08/23/16 - responded. -Monitor closely LEFT HUMERAL FRACTURE : Status post mechanical fall -Ortho on board recommended no surgical intervention at this time-Conservative management- Ice application -Pain mx- Discontinued IV and PO narcotics due to change in mental status likely sec to meds. Tylenol IV PRN. RIB FRACTURES : Due to mechanical fall -Off oxygen -Continue incentive spirometry, but not too compliant ELEVATED TROPONIN- likely from end-stage renal disease -Asymptomatic -EKG does not shown any significant ST changes. -Echo showed EF 35 to 40%; Moderate global hypokinesis of LV -Tolerated low dose of lisinopril and carvedilol well which was started this admission by cardiology -Cardiology on board. Appreciated inputs. CARDIOMYOPATHY, New diagnosis - Decrease in EF when compared to previous echo. EF 35-40%, Gd II diastolic dysfunction, Moderate global hypokinesis of left ventricle Etiology unclear -Started on low dose carvedilol and lisinopril by cardiology. Increased carvedilol to 3.125 and 6.25 mg on 08/22/16 -Cardiology on board, appreciate inputs ESRD- MWF schedule -Nephro on board -No signs of overload HX OF CAD/CABG -Stable -Continue with ASA, lisinopril, Statin, Coreg (newly started) AMBULATORY DYSFUNCTION: -xray of the hips showed Diffuse osteopenia. No acute fracture or dislocation within the pelvis or hips. -Continue PT/OT DYSLIPIDEMIA -Continue statin BPH -Continue tamsulosin. CONSTIPATION No BM since admission -Colace BID, Dulcolax PRN, Miralex PRN added but wasnt able to take PO due to mental status -Will start on lactulose q 6 hours till has a BM, dulcolax supp DVT px -on heparin subq Code status: Full code DISPOSITION To be determined. Will need rehab post discharge. Need to continue to monitor mental status. Vital Signs: Date Time Temp Pulse Resp B/P Pulse Ox O2 Delivery O2 Flow Rate FiO2 08/25/16 07:50 Nasal Cannula 2.0 08/25/16 06:31 36.5 75 18 100/60 92 Nasal Cannula 2.0 08/24/16 23:15 Nasal Cannula 2.0 08/24/16 23:05 96 Nasal Cannula 2.0 08/24/16 23:02 36.7 81 18 110/73 85 Room Air 08/24/16 21:15 98/60 08/24/16 20:08 77 18 95 Room Air 08/24/16 15:45 95 Room Air 08/24/16 15:43 73 19 112/59 95 Room Air 08/24/16 14:47 71 20 94 Room Air Lab Results: Results Past 24 Hours Test 08/25/16 05:35 Range/Units White Blood Count 9.74 4.8-10.8 K/uL Red Blood Count 3.93 4.7-6.1 M/uL Hemoglobin 9.5 14.0-18.0 g/dL Hematocrit 29.8 42-52 % Mean Corpuscular Volume 75.8 80-100 fL Mean Corpuscular Hemoglobin 24.2 25-34 pg Mean Corpuscular Hemoglobin Concent 31.9 32-36 g/dl RDW Standard Deviation 41.2 36.4-46.3 fL RDW Coefficient of Variation 15.3 11.5-14.5 % Platelet Count 258 130-400 K/uL Mean Platelet Volume 11.0 7.4-10.4 fL
[2016-08-25] MEDS ORDERED: LACTULOSE SYRUP 20 GM/30 ML UDC PO PRN (11:30)
[2016-08-25] MEDS: BISACODYL 10 MG SUPP PR SCH ×2 (11:59→21:00)
[2016-08-25] MEDS: CARVEDILOL 6.25 MG TAB PO SCH (21:00)
[2016-08-25] MEDS: ATORVASTATIN 20 MG TAB PO SCH (21:00)
[2016-08-26] VITALS (10 sets, daily range): BP systolic 89–138; BP diastolic 49–86; PULSE 66–88; TEMP 36.4–38.8; O2SAT 91–95
[2016-08-26] MEDS: ALBUTEROL 0.083% NEBU SOLN 3 ML VIAL INH SCH ×4 (01:24→19:49)
[2016-08-26] MEDS: HEPARIN SOD 5000 UNIT/0.5 ML CARP SQ SCH ×3 (05:28→21:46)
[2016-08-26 08:04] LABS: MEAN CELL VOLUME 75.8 fL (80-100); MEAN CORPUSCULAR HEMOGLOBIN 24.6 pg (25-34); MEAN CORPUSCULAR HGB CONC 32.5 g/dl (32-36); MEAN PLATELET VOLUME 10.7 fL (7.4-10.4); PLATELET COUNT 272 K/uL (130-400); RED BLOOD COUNT 4.22 M/uL (4.7-6.1); WHITE BLOOD COUNT 17.47 K/uL (4.8-10.8)
[2016-08-26 09:09] LABS: BUN/CREATININE RATIO 7.4 (10-20); CALCIUM 9.3 mg/dl (8.5-10.1); CREATININE 7.2 mg/dl (0.60-1.40); POTASSIUM 4.6 mmol/L (3.5-5.1)
[2016-08-26] MEDS: TAMSULOSIN HCL 0.4 MG CAP PO SCH ×2 (09:54→13:11)
[2016-08-26] MEDS: DOCUSATE SODIUM 100 MG CAP PO SCH ×2 (09:54→21:42)
[2016-08-26] MEDS: BISACODYL 10 MG SUPP PR SCH ×2 (09:55→21:41)
[2016-08-26] MEDS: CALCIUM ACETATE 667MG GELCAP PO SCH ×3 (09:55→17:53)
[2016-08-26] MEDS: LISINOPRIL 2.5 MG TAB PO SCH ×2 (09:55→13:11)
[2016-08-26] MEDS: CARVEDILOL 3.125 MG TAB PO SCH ×2 (09:56→13:11)
--- NOTE | 2016-08-26 10:40 | Progress Note ---
Progress Note Per family's request service was transferred to [facility]. Discussed case with Dr Ammon Isaac who accepted the patient under his service. Family not available by bedside, so was unable to update them. Called but went into voice message.
[2016-08-26] MEDS: BOOST BREEZE NUTRITION DRINK 1 BOX PO SCH ×2 (13:00→17:53)
[2016-08-26] MEDS: POLYETHYLENE (MIRALAX) 17 GM PACK PO SCH (13:12)
[2016-08-26] MEDS ORDERED: VANCOMYCIN CONSULT ACTIVE PRN (14:15)
[2016-08-26] MEDS ORDERED: LEVOFLOXACIN CONSULT ACTIVE PRN (14:15)
--- NOTE | 2016-08-26 14:24 | DIAGNOSTIC IMAGING REPORT ---
SINGLE VIEW CHEST CLINICAL HISTORY: Hypoxia. FINDINGS: An AP, portable, upright chest radiograph is compared to study dated 08/23/2016 and correlated with chest CT dated 04/24/2009. The examination is significantly degraded by portable technique, large body habitus, and patient rotation. A 2-lead cardiac pacemaker is unchanged in position. The patient is status post midline sternotomy. The heart is enlarged and there is atherosclerotic calcification with uncoiling of the thoracic aorta. The pulmonary vasculature is noncongested. There are low lung volumes with bibasilar atelectasis. No large pleural effusion is seen and there is no airspace consolidation typical for pneumonia. No pneumothorax is identified. The skeletal structures are osteopenic. A left humeral fracture is noted. IMPRESSION: 1. Cardiomegaly and cardiac pacemaker. There is no radiographic evidence of congestive failure. 2. No airspace consolidation or large pleural effusion is identified. Electronically signed by: Star Aleman M.D. 08/26/2016 2:23 PM Dictated Date/Time: 08/26/2016 2:22 PM
[2016-08-26] MEDS ORDERED: LEVOFLOXACIN / D5W 750 MG in PREMIXED IN D5W 150 ML IV SCH (15:00)
[2016-08-26] MEDS ORDERED: VANCOMYCIN INJ 2,000 MG in SODIUM CHLORIDE 0.9% 500ML 500 ML IV SCH (15:00)
[2016-08-26] MEDS: ACETAMINOPHEN IV 650 MG in EMPTY BAG 0 ML IV PRN ×2 (16:43→22:53)
[2016-08-26] MEDS: ONDANSETRON INJ 2 MG/ML 2 ML VIAL IV PRN (18:07)
--- NOTE | 2016-08-26 19:16 | Pharmacy Progress Note ---
Pharmacy Antibiotic Consult Date of Service: Aug 26, 2016. Pharmacy Dosing Scope Pharmacy is consulted to initiate vancomycin and levofloxacin IV dosing therapy , order appropriate labs and adjust drug dose/frequency. Subjective The patient is a 81 year old male admitted on Aug 17, 2016 at 16:21. Objective Height (Feet): 5 Height (Inches): 9.00 Weight (Kilograms): 93.000 Lab Results (24hrs): Laboratory Tests Test 08/26/16 07:28 BUN/Creatinine Ratio 7.4 Blood Urea Nitrogen 53 mg/dl Creatinine 7.20 mg/dl White Blood Count 17.47 K/uL Micro Results: Item Value Date Time Urine Culture Received 08/26/16 1426 Urine,Catheterized Pending MRSA DNA Surveillance Screen - Final Complete 08/26/16 1429 Nasal Specimen Negative for MRSA by DNA Probe Blood Culture Received 08/26/16 1455 Blood Pending Blood Culture Received 08/26/16 1500 Blood Pending Recent Pertinent Medications n/a Assessment & Plan Assessment: * The patient has been at [facility] since 08/17/16. * No antibiotics since admission * ESRD with HD - per nephro note on 08/17, the patient voids daily * Today, WBC elevated, procalcitonin elevated, febrile --> ABX started Plan: * Begin broad-spectrum antibiotics with levofloxacin and vancomycin Vancomycin: * Loading dose: 2000 mg (~21.5mg/kg) IV X 1 dose * Since HD patient but produces urine, will obtain random level in AM tomorrow * Re-dose per level Levofloxacin: * Target dose = 750mg IV/PO daily * Dose adjust for intermittent dialysis * 750mg IV x1, then 500mg IV/PO q48 hours Of Note: * Blood and urine cultures drawn today --> follow * repeat chest x-ray * MRSA nasal swab Pharmacy will continue to follow and will adjust dose/frequency as necessary. Thank you
--- NOTE | 2016-08-26 19:18 | Progress Note ---
Subjective Date of Service: Aug 26, 2016. Subjective Pt evaluation today including: conversation w/ patient, physical exam, chart review, lab review, review of inpatient medication list asked to assume care due to concern on status minimal HPI and ROS from pt dtr notes that [facility], got meds, got confused , hasn't been right since -reviewed charts, d/w dr forrester at length as well ~1hr face to face work (~10mins getting signout from dr forrester, ~45-50mins w family/patient) in addition to time on chart review, orders, documentation, etc today - wbc increased, fever nursing notes concern on ?aspiration he mostly complains of pain - hard to localize but seems mostly arm Problem List Medical Problems: (1) Fracture of proximal end of left humerus Status: Acute (2) Fracture, humerus, anatomical neck Status: Acute (3) Multiple fractures of ribs of left side Status: Acute (4) Multiple fractures of ribs, left side, initial encounter for closed fracture Status: Acute (5) Weakness Status: Acute Review of Systems unobtainable except for as above Objective Vital Signs Date Time Temp Pulse Resp B/P Pulse Ox O2 Delivery O2 Flow Rate FiO2 08/26/16 15:30 36.4 66 14 110/64 91 Nasal Cannula 2.0 08/26/16 14:04 80 18 94 Nasal Cannula 2.0 08/26/16 12:35 38.8 70 16 115/70 92 Nasal Cannula 2.0 08/26/16 09:07 93 Nasal Cannula 2.0 08/26/16 08:32 36.8 84 15 138/86 93 Nasal Cannula 2.0 08/26/16 07:30 Nasal Cannula 95 08/26/16 07:24 88 18 95 Nasal Cannula 2.0 08/26/16 02:58 86 95/56 08/26/16 01:15 85 89/49 08/25/16 23:42 36.5 83 24 84/51 95 Nasal Cannula 2.0 08/25/16 23:15 Nasal Cannula 2.0 08/25/16 21:35 75 94/59 92 08/25/16 20:30 93 Nasal Cannula 08/25/16 19:36 36.7 90 87/45 Physical Exam General Appearance: no apparent distress Eyes: EOMI Neck: trachea midline Respiratory/Chest: no respiratory distress, no accessory muscle use, + rales ( faint rales R mid lung. no r/r/w elsewhere good effort) Cardiovascular: regular rate, rhythm Extremities: + pertinent finding (L arm in sling, bruising diffusely across upper arm. 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, alert, + disoriented Skin: normal color, warm/dry Laboratory Results Last 24 Hours Test 08/26/16 07:28 08/26/16 11:06 White Blood Count 17.47 K/uL Red Blood Count 4.22 M/uL Hemoglobin 10.4 g/dL Hematocrit 32.0 % Mean Corpuscular Volume 75.8 fL Mean Corpuscular Hemoglobin 24.6 pg Mean Corpuscular Hemoglobin Concent 32.5 g/dl RDW Standard Deviation 40.7 fL RDW Coefficient of Variation 15.5 % Platelet Count 272 K/uL Mean Platelet Volume 10.7 fL Sodium Level 137 mmol/L Potassium Level 4.6 mmol/L Chloride Level 95 mmol/L Carbon Dioxide Level 27 mmol/L Anion Gap 15.0 mmol/L Blood Urea Nitrogen 53 mg/dl Creatinine 7.20 mg/dl Est Creatinine Clear Calc Drug Dose 8.9 ml/min Estimated GFR () 7.4 Estimated GFR (Non- 6.4 BUN/Creatinine Ratio 7.4 Random Glucose 125 mg/dl Calcium Level 9.3 mg/dl C-Reactive Protein 22.80 mg/dl Procalcitonin 20.61 ng/mL Assessment and Plan sepsis -appears acute to today (WBC just increased today, temperature just today) -start empiric abx (vanco and levaquin - working dx being RML pneumonia, but also high risk for bacteremia, possible UTI - cover for all until cultures allow narrowing) -MRSA nares negative, so if cultures otherwise negative can likely stop vanco and just cover for HAP vs aspiration w levaquin acute metabolic encephalopathy -initial inciting factors appear to be pain, pain meds, hospital stay superimposed on likely somewhat brittle baseline of health -now sepsis likely also inciting factor -extensive discussion w family in regards to encephalopathy/delirium, typical multifactorial nature (as opposed to "just because of pain meds" as they were concerned), and time course (typically does not get better in lock-step with the inciting factors, typically takes weeks to months to totally resolve) RML pneumonia -CXR haziness behind pacer, fits w exam findings, pulse ox /oxygenation also acute worsened today -abx as above -ddx is HAP vs aspiration - follow status, aspiration precautions for now, speech eval L humerus fx -sling, supportive care rib fractures (multiple, closed) -pain control as possible ESRD -on HD - continue per nephrology elevated troponin-per prior hospitalist: likely from end-stage renal disease -Asymptomatic -EKG does not shown any significant ST changes. -Echo showed EF 35 to 40%; Moderate global hypokinesis of LV -Tolerated low dose of lisinopril and carvedilol well which was started this admission by cardiology -Cardiology on board. Appreciated inputs. -will continue to follow status CAD, prior CABG -appears overall stable, see above in regards to troponin -continue current meds ambulatory dysfunction/leg weakness -Continue PT/OT -likely will need rehab dyslipidemia -Continue statin BPH -Continue tamsulosin DVT proph -heparin SQ ~at least 45mins face to face
[2016-08-26] MEDS: CARVEDILOL 6.25 MG TAB PO SCH (21:41)
[2016-08-26] MEDS: ATORVASTATIN 20 MG TAB PO SCH (21:43)
[2016-08-27] VITALS (17 sets, daily range): BP systolic 71–106; BP diastolic 44–66; PULSE 70–112; TEMP 36.3–36.9; O2SAT 91–97
[2016-08-27] MEDS: ALBUTEROL 0.083% NEBU SOLN 3 ML VIAL INH SCH ×4 (03:00→19:35)
[2016-08-27] MEDS: HEPARIN SOD 5000 UNIT/0.5 ML CARP SQ SCH ×3 (05:34→21:48)
[2016-08-27] MEDS: CARVEDILOL 3.125 MG TAB PO SCH (08:30)
[2016-08-27] MEDS: TAMSULOSIN HCL 0.4 MG CAP PO SCH (08:55)
[2016-08-27] MEDS: CALCIUM ACETATE 667MG GELCAP PO SCH ×3 (08:56→16:49)
[2016-08-27] MEDS: DOCUSATE SODIUM 100 MG CAP PO SCH ×2 (08:58→21:43)
[2016-08-27] MEDS: ACETAMINOPHEN 325 MG TAB PO PRN (08:58)
[2016-08-27] MEDS: POLYETHYLENE (MIRALAX) 17 GM PACK PO SCH (08:58)
[2016-08-27] MEDS: BISACODYL 10 MG SUPP PR SCH ×2 (08:58→21:00)
[2016-08-27] MEDS: BOOST BREEZE NUTRITION DRINK 1 BOX PO SCH ×2 (08:58→16:48)
[2016-08-27 09:41] LABS: BASO % 0.1 %; BASO ABS # 0.02 K/uL (0-0.2); COMPLETE YES; EOS % 0.9 %; HEMATOCRIT 29.4 % (42-52); IG% 0.7 %; LYMPH % 6.5 %; LYMPH ABS # 1.28 K/uL (1.2-3.4); MEAN PLATELET VOLUME 11.5 fL (7.4-10.4); NEUT % 84.8 %; PLATELET COUNT 261 K/uL (130-400); RED BLOOD COUNT 3.92 M/uL (4.7-6.1); WHITE BLOOD COUNT 19.75 K/uL (4.8-10.8)
[2016-08-27 10:12] LABS: BUN/CREATININE RATIO 9.4 (10-20); CALCIUM 8.9 mg/dl (8.5-10.1); CREATININE 8.3 mg/dl (0.60-1.40); POTASSIUM 4.6 mmol/L (3.5-5.1)
[2016-08-27] MEDS: LISINOPRIL 2.5 MG TAB PO SCH (11:22)
[2016-08-27] MEDS ORDERED: NURSING VERBAL MED ORDER ONE (11:30)
[2016-08-27] MEDS ORDERED: SODIUM CHLORIDE 0.9% 1000ML 1,000 ML IV SCH ×2 (12:00→15:15)
[2016-08-27] MEDS ORDERED: NYSTATIN SUSP 500,000 U/5 ML UDC PO SCH (12:15)
[2016-08-27] MEDS: NYSTATIN SUSP 500,000 U/5 ML UDC PO SCH ×3 (13:54→21:46)
--- NOTE | 2016-08-27 14:38 | Pharmacy Progress Note ---
Pharmacy Antibiotic Prog Note Date of Service: Aug 27, 2016. Subjective: The patient is currently receiving VANCOMYCIN IV empirically based on levels, The patient is currently on day # 2 of VANCOMYCIN / LEVAQUIN IV therapy. Objective: Height (Feet): 5 Height (Inches): 9.00 Weight (Kilograms): 93.000 Levels: Item Value Date Time Random Vancomycin Level 24.0 mcg/ml 08/27/16 0546 Lab Results (24hrs): Laboratory Tests Test 08/27/16 05:46 BUN/Creatinine Ratio 9.4 Blood Urea Nitrogen 78 mg/dl Creatinine 8.30 mg/dl White Blood Count 19.75 K/uL Red Blood Count 3.92 M/uL Hemoglobin 9.4 g/dL Hematocrit 29.4 % Mean Corpuscular Volume 75.0 fL Mean Corpuscular Hemoglobin 24.0 pg Mean Corpuscular Hemoglobin Concent 32.0 g/dl Platelet Count 261 K/uL Mean Platelet Volume 11.5 fL Neutrophils (%) (Auto) 84.8 % Lymphocytes (%) (Auto) 6.5 % Monocytes (%) (Auto) 7.0 % Eosinophils (%) (Auto) 0.9 % Basophils (%) (Auto) 0.1 % Neutrophils # (Auto) 16.76 K/uL Lymphocytes # (Auto) 1.28 K/uL Monocytes # (Auto) 1.38 K/uL Eosinophils # (Auto) 0.17 K/uL Basophils # (Auto) 0.02 K/uL Micro Results: * 08/26/16 -- Nasal = (-) MRSA * 08/26/16 -- Urine -- NG * 08/26/16 -- Blood x 2 -- pending Recent Pertinent Medications: Item Value Date Time Levofloxacin 500 100 ml @ 100 mls/hr 08/28/16 1500 mg/Prmx Q48H/IV Assessment & Plan: 81yo male admitted s/p fall with humerus fx. Patient is ESRD on HD qMWF as an outpatient. HD has been continued according to outpatient schedule since admission. VANCOMYCIN: * Patient received VANCOMYCIN 2000mg (~22mg/kg) IV x 1 dose yesterday. * Random level drawn with am labs today = 24 mcg/mL. * This drug level is Supratherapeutic. * Goal trough/random level estimate: between 15 - 20 mcg/mL. * Will recheck a random level with am labs on 08/28/16 and redose when appropriate. Pharmacy will continue to follow and will adjust dose/frequency as necessary. Thank you
[2016-08-27 15:43] LABS: BASO % 0.1 %; BASO ABS # 0.01 K/uL (0-0.2); EOS % 1.3 %; HEMATOCRIT 26.3 % (42-52); IG% 0.5 %; LYMPH % 7.5 %; LYMPH ABS # 1.34 K/uL (1.2-3.4); MEAN CELL VOLUME 75.6 fL (80-100); MEAN CORPUSCULAR HEMOGLOBIN 24.4 pg (25-34); MEAN PLATELET VOLUME 10.8 fL (7.4-10.4); NEUT % 85.6 %; PLATELET COUNT 224 K/uL (130-400); RED BLOOD COUNT 3.48 M/uL (4.7-6.1); WHITE BLOOD COUNT 17.92 K/uL (4.8-10.8)
[2016-08-27 16:13] LABS: BUN/CREATININE RATIO 9.8 (10-20); C-REACTIVE PROTEIN 24.9 mg/dl (0-0.29); POTASSIUM 4.2 mmol/L (3.5-5.1)
[2016-08-27 16:14] LABS: CREATININE 8.3 mg/dl (0.60-1.40)
--- NOTE | 2016-08-27 16:16 | Progress Note ---
Subjective Date of Service: Aug 27, 2016. Subjective Pt evaluation today including: conversation w/ patient, conversation w/ family , physical exam, chart review, lab review, review of studies, review of inpatient medication list pt seen twice so far today initially seen earlier this afternoon - feeling better, more alert, does have some chest tightness but not really feeling short of breath. L arm hurts. family notes that within the context of waxing and waning, he's still acting like himself more. d/w speech - when awake and more alert overall does well - - at alert mentation not very high risk for aspiration, although of course when more somnolent if family tried to feed aspiration could still occur. hard of hearing and still reasonably confused - so very limited HPI and ROS obtainable from pt, but noted to be doing better, family pleased with care called again - BP dropped to ~70/40 after PT. in bed. more somnolent. awakens to loud voice/repetitive stimuli - no spontaneous complaints but agrees to chest pressure persisting, but denies it being any worse than earlier. no other meaningful HPI or ROS has been having copious stools - although soft/more formed - not liquid not diarrhea - but copious in frequency and volume Problem List Medical Problems: (1) Fracture of proximal end of left humerus Status: Acute (2) Fracture, humerus, anatomical neck Status: Acute (3) Multiple fractures of ribs of left side Status: Acute (4) Multiple fractures of ribs, left side, initial encounter for closed fracture Status: Acute (5) Weakness Status: Acute Review of Systems see above, ROS otherwise negative except for as above Objective Vital Signs Date Time Temp Pulse Resp B/P Pulse Ox O2 Delivery O2 Flow Rate FiO2 08/27/16 15:13 36.9 80 20 71/44 92 Nasal Cannula 2.0 08/27/16 13:36 36.8 75 102/65 95 Nasal Cannula 2.0 08/27/16 11:07 36.7 85 19 82/51 91 Nasal Cannula 2.0 08/27/16 08:30 Nasal Cannula 08/27/16 07:37 82 18 93 Nasal Cannula 2.0 08/27/16 07:11 36.3 112 19 92/56 92 Room Air 08/27/16 05:10 102/56 08/27/16 04:05 82/47 08/27/16 01:08 36.8 83 22 80/49 95 Nasal Cannula 2.0 08/26/16 21:41 80 92/56 08/26/16 20:44 Room Air 08/26/16 19:50 78 18 94 Nasal Cannula 2.0 Physical Exam General Appearance: no apparent distress Eyes: EOMI ENT: + pertinent finding ([place] but earlier can communicate some when spoken to in loud, slow voice. second visit more somnolent - will awken to loud repetitive stim though) Neck: trachea midline Respiratory/Chest: no respiratory distress, no accessory muscle use, + rales ( R middle lung field rales persist. faint wheeze R side this afternoon that was not present on first visit. 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, alert, normal mood/affect Skin: normal color, warm/dry Laboratory Results Last 24 Hours Test 08/27/16 05:46 08/27/16 15:35 White Blood Count 19.75 K/uL 17.92 K/uL Red Blood Count 3.92 M/uL 3.48 M/uL Hemoglobin 9.4 g/dL 8.5 g/dL Hematocrit 29.4 % 26.3 % Mean Corpuscular Volume 75.0 fL 75.6 fL Mean Corpuscular Hemoglobin 24.0 pg 24.4 pg Mean Corpuscular Hemoglobin Concent 32.0 g/dl Platelet Count 261 K/uL 224 K/uL Mean Platelet Volume 11.5 fL 10.8 fL Neutrophils (%) (Auto) 84.8 % 85.6 % Lymphocytes (%) (Auto) 6.5 % 7.5 % Monocytes (%) (Auto) 7.0 % 5.0 % Eosinophils (%) (Auto) 0.9 % 1.3 % Basophils (%) (Auto) 0.1 % 0.1 % Neutrophils # (Auto) 16.76 K/uL 15.36 K/uL Lymphocytes # (Auto) 1.28 K/uL 1.34 K/uL Monocytes # (Auto) 1.38 K/uL 0.89 K/uL Eosinophils # (Auto) 0.17 K/uL 0.23 K/uL Basophils # (Auto) 0.02 K/uL 0.01 K/uL RDW Standard Deviation 40.5 fL 41.2 fL RDW Coefficient of Variation 15.3 % 15.4 % Immature Granulocyte % (Auto) 0.7 % 0.5 % Immature Granulocyte # (Auto) 0.14 K/uL 0.09 K/uL Sodium Level 135 mmol/L Potassium Level 4.6 mmol/L Chloride Level 93 mmol/L Carbon Dioxide Level 25 mmol/L Anion Gap 17.0 mmol/L Blood Urea Nitrogen 78 mg/dl Creatinine 8.30 mg/dl Est Creatinine Clear Calc Drug Dose 7.7 ml/min Estimated GFR () 6.3 Estimated GFR (Non- 5.4 BUN/Creatinine Ratio 9.4 Random Glucose 108 mg/dl Calcium Level 8.9 mg/dl Random Vancomycin Level 24.0 mcg/ml Assessment and Plan hypotension -appearing hypovolemia from diarrhea > septic related shock - but both certainly possible ----responded to fluid bolus then BP went low again - ?low volume that simply needs further replaced vs vasodilatory septic process -- looking at available evidence - WBC only slightly up from yesterday morning, no further fevers, outside of one outlier reading at 7am, no tachycardia, no tachypnea. eval further for evidence for sepsis: repeat CBC, CRP, procalcitonin; ongoing clinical f/u and follow vitals; since ongoing stools , check Cdiff although stools don't sound c/w cdiff -- hypovolemia - has volume loss + poor PO intake. on low dose but (+) beta charan that could blunt physiologic tachycardia response; eval for further evidence: check BMP to eval for 'lyte changes c/w large volume loss from diarrhea --- eval for potential for cardiogenic shock (since he does have known CAD and chronic systolic CHF) - EKG essentially unchanged from previous, check repeat troponin - but cardiogenic source for hypotension seems unlikely. -move to telemetry for now sepsis -blood and urine cultures all negative thus far - if no further growth, then would likely all be due to pneumonia -on empiric vanco, levaquin. if shock appearance seems more c/w septic picture , will add beta lactam gram neg coverage to be safe until situation stabilizes -if blood and urine negative, since MRSA nares negative, can then likely dc vanco by tomorrow acute metabolic encephalopathy -initial inciting factors appear to be pain, pain meds, hospital stay superimposed on likely somewhat brittle baseline of health -now sepsis likely also inciting factor -extensive discussions w family in regards to encephalopathy/delirium, typical multifactorial nature, and time course (typically does not get better in lock- step with the inciting factors, typically takes weeks to months to totally resolve) RML pneumonia -CXR haziness behind pacer, fits w exam findings, pulse ox /oxygenation also acutely worsened 08/26 -abx as above -ddx is HAP vs aspiration - follow status, aspiration precautions for now, speech eval reassuring for no 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 -Echo showed EF 35 to 40%; Moderate global hypokinesis of LV -Tolerated low dose of lisinopril and carvedilol well which was started this admission by cardiology -Cardiology on board. Appreciated inputs. -will continue to follow status -- checked troponin in regards to hypotension - reassuring as it's still in the 0.3x range CAD, prior CABG -appears overall stable, see above in regards to troponin -continue current meds chronic systolic CHF -appearing compensated - follow closely w volume for hypotension, however ambulatory dysfunction/leg weakness -Continue PT/OT -likely will need rehab dyslipidemia -Continue statin BPH -Continue tamsulosin DVT proph -heparin SQ
[2016-08-27 16:22] LABS: ANISOCYTOSIS PRESENT; COMPLETE YES; MEAN CORPUSCULAR HGB CONC 32.3 g/dl (32-36); OVALOCYTES 1+; POLYCHROMASIA 1+
[2016-08-27] MEDS: ALBUT/IPRATROP 3MG/0.5MG NEB 3 ML VIAL INH PRN (17:00)
[2016-08-27] MEDS: ACETAMINOPHEN IV 650 MG in EMPTY BAG 0 ML IV PRN (19:41)
[2016-08-27] MEDS: CARVEDILOL 6.25 MG TAB PO SCH (21:45)
[2016-08-27] MEDS: ATORVASTATIN 20 MG TAB PO SCH (21:45)
[2016-08-28] VITALS (9 sets, daily range): BP systolic 85–101; BP diastolic 44–65; PULSE 64–86; TEMP 36.4–36.9; O2SAT 90–99
[2016-08-28] MEDS: ALBUTEROL 0.083% NEBU SOLN 3 ML VIAL INH SCH ×4 (02:33→19:06)
[2016-08-28 06:26] LABS: BASO % 0.1 %; BASO ABS # 0.01 K/uL (0-0.2); EOS % 1.7 %; HEMATOCRIT 26.1 % (42-52); IG% 0.6 %; LYMPH % 7.7 %; MEAN CELL VOLUME 74.6 fL (80-100); MEAN CORPUSCULAR HEMOGLOBIN 24.6 pg (25-34); MEAN PLATELET VOLUME 11.3 fL (7.4-10.4); MONO % 5.7 %; NEUT % 84.2 %; PLATELET COUNT 222 K/uL (130-400); WHITE BLOOD COUNT 15.56 K/uL (4.8-10.8)
[2016-08-28] MEDS: HEPARIN SOD 5000 UNIT/0.5 ML CARP SQ SCH ×3 (06:36→21:03)
[2016-08-28 06:54] LABS: COMPLETE YES; OVALOCYTES 1+; POLYCHROMASIA 1+
--- NOTE | 2016-08-28 07:31 | Nephrology Progress Note ---
Nephrology Progress Note Date of Service: Aug 28, 2016. Subjective 81 yo male with esrd who fell and had humerus fracture/rib fractures. pt with delirium of unclear etiology. pt also with hypotension. pt with acute leukocytosis over the weekend and started on broad spectrum abxs. pt with diarrhea. last dialysis was sunday. pts mental status much improved today. Objective Date Time Temp Pulse Resp B/P Pulse Ox O2 Delivery O2 Flow Rate FiO2 08/28/16 04:21 36.6 66 26 85/44 99 Nasal Cannula 2.0 08/28/16 04:00 95 Nasal Cannula 2.0 08/27/16 23:59 95 Nasal Cannula 2.0 08/27/16 23:44 36.5 70 24 85/46 97 Nasal Cannula 2.0 08/27/16 20:00 97 Nasal Cannula 2.0 08/27/16 19:35 76 18 93 Nasal Cannula 2.0 08/27/16 19:26 36.4 76 22 102/60 93 Nasal Cannula 2.0 08/27/16 17:00 76 18 95 Nasal Cannula 2.0 08/27/16 16:44 36.8 90 19 101/62 95 Nasal Cannula 2.0 08/27/16 16:24 106/66 08/27/16 16:03 36.9 80 20 92 2.0 08/27/16 15:13 36.9 80 20 71/44 92 Nasal Cannula 2.0 08/27/16 13:36 36.8 75 102/65 95 Nasal Cannula 2.0 08/27/16 11:07 36.7 85 19 82/51 91 Nasal Cannula 2.0 08/27/16 08:30 Nasal Cannula 08/27/16 07:37 82 18 93 Nasal Cannula 2.0 Physical Exam: General-[id number] Eyes-no scleral icterus ENT-mmm Neck-supple Lungs-clear Heart-rrr Abdomen-bs+ s/nt/nd Extremities-left arm in sling, no edema Neuro-nonfocal Current Inpatient Medications Medications (Trade) Dose Ordered Sig/Daniel Route Start Time Stop Time Status Last Admin Dose Admin Atorvastatin Calcium (Lipitor Tab) 20 mg QPM PO 08/17/16 21:00 09/16/16 20:59 08/27/16 21:45 20 MG Calcium Acetate (Phoslo Cap) 1,334 mg TIDM PO 08/18/16 08:30 09/17/16 08:29 08/27/16 16:49 1,334 MG Tamsulosin HCl (Flomax Cap) 0.4 mg DAILY PO 08/18/16 09:00 09/17/16 08:59 08/27/16 08:55 0.4 MG Acetaminophen (Tylenol Tab) 650 mg Q4H PRN PO 08/17/16 16:45 09/16/16 16:44 08/27/16 08:58 650 MG Ondansetron HCl (Zofran Inj) 4 mg Q6H PRN IV 08/17/16 16:45 09/16/16 16:44 08/26/16 18:07 4 MG Albuterol/ Ipratropium (Duoneb) 3 ml Q2H PRN INH 08/17/16 19:45 09/16/16 19:44 08/27/16 17:00 3 ML Heparin Sodium (Porcine) (Heparin Sq 5000 Unit/0.5ml) 5,000 unit Q8 SQ 08/19/16 22:00 09/18/16 21:59 08/28/16 06:36 5,000 UNIT Tramadol HCl 50 mg 50 mg Q4H PRN PO 08/21/16 16:45 09/20/16 16:44 Future Hold 08/22/16 14:10 50 MG Acetaminophen/ Empty Bag (Ofirmev IV/ Empty Iv Bag 100ml) 65 ml @ 260 mls/hr Q6H PRN IV 08/21/16 20:30 09/20/16 20:29 08/27/16 19:41 260 MLS/HR Docusate Sodium (coLACE CAP) 100 mg BID PO 08/22/16 21:00 09/21/16 20:59 08/27/16 21:43 100 MG Enteral Nutritional Formula (Boost Breeze Nutritional Drink) 1 box BIDM PO 08/23/16 17:45 09/22/16 17:44 08/27/16 16:48 1 BOX Albuterol Sulfate (Ventolin 0.083% 2.5MG/3ML Neb) 2.5 mg Q6R INH 08/24/16 09:00 09/23/16 08:59 08/27/16 19:35 2.5 MG Polyethylene (Miralax Powder Packet) 17 gm DAILY PO 08/26/16 15:00 09/25/16 14:59 Lactulose (Chronulac Syrup) 20 gm Q6H PRN PO 08/25/16 11:30 09/24/16 11:29 08/25/16 14:22 20 GM Bisacodyl (Dulcolax Supp) 10 mg BID GA 08/25/16 11:30 09/24/16 11:29 08/25/16 11:59 10 MG Vancomycin HCl (Consult) 1 ea UD PRN N/A 08/26/16 14:15 09/25/16 14:14 Levofloxacin 1 ea 1 ea UD PRN N/A 08/26/16 14:15 09/25/16 14:14 Levofloxacin/Prmx (Levaquin / D5W/ Premixed D5W) 100 ml @ 100 mls/hr Q48H IV 08/28/16 15:00 08/28/16 23:59 Nystatin (Mycostatin Susp) 10 ml QID PO 08/27/16 13:00 09/06/16 12:59 08/27/16 21:46 10 ML Last 24 Hours Test 08/27/16 15:35 08/27/16 18:55 08/28/16 05:48 White Blood Count 17.92 K/uL 15.56 K/uL Red Blood Count 3.48 M/uL 3.50 M/uL Hemoglobin 8.5 g/dL 8.6 g/dL Hematocrit 26.3 % 26.1 % Mean Corpuscular Volume 75.6 fL 74.6 fL Mean Corpuscular Hemoglobin 24.4 pg 24.6 pg Mean Corpuscular Hemoglobin Concent 32.3 g/dl 33.0 g/dl Platelet Count 224 K/uL 222 K/uL Mean Platelet Volume 10.8 fL 11.3 fL Neutrophils (%) (Auto) 85.6 % 84.2 % Lymphocytes (%) (Auto) 7.5 % 7.7 % Monocytes (%) (Auto) 5.0 % 5.7 % Eosinophils (%) (Auto) 1.3 % 1.7 % Basophils (%) (Auto) 0.1 % 0.1 % Neutrophils # (Auto) 15.36 K/uL 13.11 K/uL Lymphocytes # (Auto) 1.34 K/uL 1.20 K/uL Monocytes # (Auto) 0.89 K/uL 0.88 K/uL Eosinophils # (Auto) 0.23 K/uL 0.27 K/uL Basophils # (Auto) 0.01 K/uL 0.01 K/uL RDW Standard Deviation 41.2 fL 40.5 fL RDW Coefficient of Variation 15.4 % 15.3 % Immature Granulocyte % (Auto) 0.5 % 0.6 % Immature Granulocyte # (Auto) 0.09 K/uL 0.09 K/uL Polychromasia 1+ 1+ Anisocytosis PRESENT Ovalocytes 1+ 1+ Sodium Level 134 mmol/L Potassium Level 4.2 mmol/L Chloride Level 95 mmol/L Carbon Dioxide Level 21 mmol/L Anion Gap 18.0 mmol/L Blood Urea Nitrogen 81 mg/dl Creatinine 8.30 mg/dl Est Creatinine Clear Calc Drug Dose 7.7 ml/min Estimated GFR () 6.3 Estimated GFR (Non- 5.4 BUN/Creatinine Ratio 9.8 Random Glucose 113 mg/dl Calcium Level 9.0 mg/dl Troponin I 0.351 ng/ml C-Reactive Protein 24.90 mg/dl Procalcitonin 15.33 ng/mL Random Cortisol 32.19 mcg/dl Nucleated RBC Absolute Count (auto) 0.02 K/uL Nucleated Red Blood Cells % 0.1 % Random Vancomycin Level 18.0 mcg/ml Assessment & Plan ESRD-last dialysis was sunday. would like to hold dialysis today and re- evaluate for dialysis tomorrow. bp is low. on broad spectrum antibiotics-urine culture negative. blood cultures pending. will stop the coreg with the low bp and also stop the flomax. cortisol levels are good. check tsh levels to be thorough. [id number] stop motility meds. Anemia of renal failure-pt is a hoahaoism and does not want blood products. continue procrit with dialysis. Delirium-pts mental status continues to improve. ammonia normal. checking aluminum levels tomorrow. blood cultures pending.
[2016-08-28] MEDS: BOOST BREEZE NUTRITION DRINK 1 BOX PO SCH ×2 (07:50→15:58)
[2016-08-28] MEDS: CALCIUM ACETATE 667MG GELCAP PO SCH ×3 (07:51→15:59)
[2016-08-28] MEDS: DOCUSATE SODIUM 100 MG CAP PO SCH ×2 (07:51→20:56)
[2016-08-28] MEDS: NYSTATIN SUSP 500,000 U/5 ML UDC PO SCH ×4 (07:51→20:57)
[2016-08-28] MEDS: ACETAMINOPHEN IV 650 MG in EMPTY BAG 0 ML IV PRN (12:42)
[2016-08-28] MEDS: ACETAMINOPHEN 325 MG TAB PO PRN (12:47)
[2016-08-28] MEDS ORDERED: PIPERACILL/TAZOBAC IV 2.25 GM in DEXTROSE 5% 100ML 100 ML IV SCH (14:15)
[2016-08-28] MEDS ORDERED: PIPERACILL/TAZOBAC CONSULT ACTIVE PRN (14:15)
[2016-08-28] MEDS ORDERED: PIPERACILL/TAZOBAC IV 3.375 GM in DEXTROSE 5% 100ML IV ONE (14:30)
[2016-08-28] MEDS ORDERED: PIPERACILL/TAZOBAC IV 2.25 GM in DEXTROSE 5% 100ML 100 ML IV ONE (14:45)
[2016-08-28] MEDS ORDERED: LEVOFLOXACIN 500MG / D5W IV SCH (15:00)
[2016-08-28] MEDS: LACTOBACILLUS ACIDOPHILUS 1 GM PACK PO SCH (15:59)
[2016-08-28] MEDS ORDERED: NURSING VERBAL MED ORDER ONE (18:15)
[2016-08-28] MEDS ORDERED: CALCIUM CARBONATE 500 MG CHEWABLE PO ONE (19:00)
--- NOTE | 2016-08-28 20:16 | Progress Note ---
Subjective Date of Service: Aug 28, 2016. Subjective Pt evaluation today including: conversation w/ patient, conversation w/ family , physical exam, chart review, lab review Problem List Medical Problems: (1) Fracture of proximal end of left humerus Status: Acute (2) Fracture, humerus, anatomical neck Status: Acute (3) Multiple fractures of ribs of left side Status: Acute (4) Multiple fractures of ribs, left side, initial encounter for closed fracture Status: Acute (5) Weakness Status: Acute Review of Systems ROS os unobtainable as patient had change in mental status Medications Current Inpatient Medications Medications (Trade) Dose Ordered Sig/Daniel Route Start Time Stop Time Status Last Admin Dose Admin Atorvastatin Calcium (Lipitor Tab) 20 mg QPM PO 08/17/16 21:00 09/16/16 20:59 08/27/16 21:45 20 MG Calcium Acetate (Phoslo Cap) 1,334 mg TIDM PO 08/18/16 08:30 09/17/16 08:29 08/28/16 15:59 1,334 MG Acetaminophen (Tylenol Tab) 650 mg Q4H PRN PO 08/17/16 16:45 09/16/16 16:44 08/28/16 12:47 650 MG Ondansetron HCl (Zofran Inj) 4 mg Q6H PRN IV 08/17/16 16:45 09/16/16 16:44 08/26/16 18:07 4 MG Albuterol/ Ipratropium (Duoneb) 3 ml Q2H PRN INH 08/17/16 19:45 09/16/16 19:44 08/27/16 17:00 3 ML Heparin Sodium (Porcine) (Heparin Sq 5000 Unit/0.5ml) 5,000 unit Q8 SQ 08/19/16 22:00 09/18/16 21:59 08/28/16 12:44 5,000 UNIT Tramadol HCl 50 mg 50 mg Q4H PRN PO 08/21/16 16:45 09/20/16 16:44 Future Hold 08/22/16 14:10 50 MG Acetaminophen/ Empty Bag (Ofirmev IV/ Empty Iv Bag 100ml) 65 ml @ 260 mls/hr Q6H PRN IV 08/21/16 20:30 09/20/16 20:29 08/27/16 19:41 260 MLS/HR Docusate Sodium (coLACE CAP) 100 mg BID PO 08/22/16 21:00 09/21/16 20:59 08/27/16 21:43 100 MG Enteral Nutritional Formula (Boost Breeze Nutritional Drink) 1 box BIDM PO 08/23/16 17:45 09/22/16 17:44 08/28/16 15:58 1 BOX Albuterol Sulfate (Ventolin 0.083% 2.5MG/3ML Neb) 2.5 mg Q6R INH 08/24/16 09:00 09/23/16 08:59 08/28/16 19:06 2.5 MG Lactulose (Chronulac Syrup) 20 gm Q6H PRN PO 08/25/16 11:30 09/24/16 11:29 08/25/16 14:22 20 GM Levofloxacin 1 ea 1 ea UD PRN N/A 08/26/16 14:15 09/25/16 14:14 Levofloxacin/Prmx (Levaquin / D5W/ Premixed D5W) 100 ml @ 100 mls/hr Q48H IV 08/28/16 15:00 09/04/16 14:59 08/28/16 15:58 100 MLS/HR Nystatin (Mycostatin Susp) 10 ml QID PO 08/27/16 13:00 09/06/16 12:59 08/28/16 17:49 10 ML Lactobacillus Acidophilus (Lactinex Granules Pack) 1 gm TIDM PO 08/28/16 16:45 09/27/16 16:44 08/28/16 15:59 1 GM Piperacillin Sod/ Tazobactam Sod 1 ea 1 ea UD PRN N/A 08/28/16 14:15 09/07/16 14:14 Piperacillin Sod/ Tazobactam Sod/ Dextrose (Zosyn Iv/D5 100ml) 115 ml @ 28.75 mls/ hr Q12H IV 08/29/16 02:00 09/05/16 01:59 Objective Vital Signs Date Time Temp Pulse Resp B/P Pulse Ox O2 Delivery O2 Flow Rate FiO2 08/28/16 19:06 77 18 92 Nasal Cannula 2.0 08/28/16 16:00 Nasal Cannula 2.0 08/28/16 15:15 36.4 77 18 101/65 93 Nasal Cannula 2.0 08/28/16 13:00 36.8 64 16 99/61 97 Nasal Cannula 2.0 08/28/16 12:00 Nasal Cannula 2.0 08/28/16 08:35 36.9 86 20 101/50 96 Nasal Cannula 2.0 08/28/16 08:00 Nasal Cannula 2.0 08/28/16 07:26 75 18 90 Nasal Cannula 2.0 08/28/16 04:21 36.6 66 26 85/44 99 Nasal Cannula 2.0 08/28/16 04:00 95 Nasal Cannula 2.0 08/27/16 23:59 95 Nasal Cannula 2.0 08/27/16 23:44 36.5 70 24 85/46 97 Nasal Cannula 2.0 Physical Exam General Appearance: + moderate distress Eyes: normal inspection, EOMI ENT: normal ENT inspection, hearing grossly normal Neck: supple Respiratory/Chest: + decreased breath sounds, + rales Cardiovascular: regular rate, rhythm, no edema, no gallop, no JVD, no murmur Abdomen: normal bowel sounds, soft, no pulsatile mass, + distended, + tenderness Extremities: normal range of motion, non-tender, no pedal edema Neurologic/Psychiatric: director experimental medicine II-XII nml as tested, alert, + pertinent finding ( slightly confused) Skin: normal color, warm/dry, no rash Laboratory Results Last 24 Hours Test 08/28/16 05:48 08/28/16 16:10 White Blood Count 15.56 K/uL Red Blood Count 3.50 M/uL Hemoglobin 8.6 g/dL Hematocrit 26.1 % Mean Corpuscular Volume 74.6 fL Mean Corpuscular Hemoglobin 24.6 pg Mean Corpuscular Hemoglobin Concent 33.0 g/dl Platelet Count 222 K/uL Mean Platelet Volume 11.3 fL Neutrophils (%) (Auto) 84.2 % Lymphocytes (%) (Auto) 7.7 % Monocytes (%) (Auto) 5.7 % Eosinophils (%) (Auto) 1.7 % Basophils (%) (Auto) 0.1 % Neutrophils # (Auto) 13.11 K/uL Lymphocytes # (Auto) 1.20 K/uL Monocytes # (Auto) 0.88 K/uL Eosinophils # (Auto) 0.27 K/uL Basophils # (Auto) 0.01 K/uL RDW Standard Deviation 40.5 fL RDW Coefficient of Variation 15.3 % Immature Granulocyte % (Auto) 0.6 % Immature Granulocyte # (Auto) 0.09 K/uL Nucleated RBC Absolute Count (auto) 0.02 K/uL Nucleated Red Blood Cells % 0.1 % Polychromasia 1+ Ovalocytes 1+ Random Vancomycin Level 18.0 mcg/ml Assessment and Plan Septic shock with no obvious source of infection -Procalcitonin was elevated -persistent leukocytosis -possible pneumonia (although no stigmata of pneumonia clinically) -not improving on Vanco/levofloxacin - Add zosyn renally adjusted dose -CT scan abd/pelv in am with contrast prior to dialysis -DC vanco - stool studies (Cx, O&P, Giardia, Desiree virus, WBCs, Heme occult) -C-diff was negative -blood and urine cultures all negative acute metabolic encephalopathy -initial inciting factors appear to be pain, sepsis, pain meds, hospital stay superimposed on likely somewhat brittle baseline of health RML density, questionable pneumonia -CXR haziness behind pacer, fits w exam findings, pulse ox /oxygenation also acutely worsened 08/26 -ddx is HAP vs aspiration - follow status, aspiration precautions L humerus fx -sling, supportive care rib fractures (multiple, closed) -pain control as possible ESRD -on HD - continue per nephrology Elevate dtrop, likely secondary to ESRD, Echo showed EF of 35-40% hold coreg and lisinopril CAD, prior CABG -appears overall stable, see above in regards to troponin -continue current meds chronic systolic CHF -appearing compensated - follow closely w volume for hypotension, however ambulatory dysfunction/leg weakness -Continue PT/OT -likely will need rehab dyslipidemia -Continue statin BPH -Continue tamsulosin DVT proph -heparin SQ
[2016-08-28] MEDS: ATORVASTATIN 20 MG TAB PO SCH (20:56)
[2016-08-29] VITALS (25 sets, daily range): BP systolic 85–140; BP diastolic 52–79; PULSE 64–114; TEMP 36.4–36.9; O2SAT 93–99
[2016-08-29] MEDS: PIPERACILL/TAZOBAC IV 3.375 GM in DEXTROSE 5% 100ML IV SCH ×2 (02:15→15:04)
[2016-08-29] MEDS: ALBUTEROL 0.083% NEBU SOLN 3 ML VIAL INH SCH ×4 (02:23→20:20)
[2016-08-29] MEDS: HEPARIN SOD 5000 UNIT/0.5 ML CARP SQ SCH ×3 (05:31→22:26)
[2016-08-29 05:50] LABS: BASO % 0.1 %; BASO ABS # 0.01 K/uL (0-0.2); COMPLETE YES; EOS % 1.8 %; IG% 0.5 %; LYMPH ABS # 1.12 K/uL (1.2-3.4); MEAN CELL VOLUME 73.8 fL (80-100); MEAN CORPUSCULAR HEMOGLOBIN 24.6 pg (25-34); MEAN CORPUSCULAR HGB CONC 33.3 g/dl (32-36); MEAN PLATELET VOLUME 10.3 fL (7.4-10.4); MONO % 5.3 %; NEUT % 84.3 %; PLATELET COUNT 235 K/uL (130-400); RED BLOOD COUNT 3.66 M/uL (4.7-6.1); WHITE BLOOD COUNT 14.08 K/uL (4.8-10.8)
[2016-08-29 06:37] LABS: ALB/GLOB RATIO 0.5 (0.9-2); BUN/CREATININE RATIO 11.1 (10-20); CALCIUM 8.2 mg/dl (8.5-10.1); CREATININE 9.7 mg/dl (0.60-1.40); MAGNESIUM 2.6 mg/dl (1.8-2.4); PHOSPHORUS 6.3 mg/dl (2.5-4.9); POTASSIUM 5.1 mmol/L (3.5-5.1)
[2016-08-29 06:39] LABS: THYROID STIMULATING HORMONE 1.33 uIu/ml (0.300-4.500)
--- NOTE | 2016-08-29 07:17 | Nephrology Progress Note ---
Nephrology Progress Note Date of Service: Aug 29, 2016. Subjective 81 yo male with esrd who fell and had humerus fracture/rib fractures. pt with delirium of unclear etiology. pt also with hypotension. pt with diarrhea. bp has improved. mental status has improved. stool cultures are negative. pt for ct scan with oral and iv contrast this morning. Objective Date Time Temp Pulse Resp B/P Pulse Ox O2 Delivery O2 Flow Rate FiO2 08/29/16 04:00 95 Nasal Cannula 2.0 08/29/16 03:53 36.8 92 18 134/70 95 Nasal Cannula 2.0 08/29/16 02:23 78 18 94 Room Air 08/29/16 00:01 93 Nasal Cannula 2.0 08/29/16 00:00 36.7 94 22 127/67 93 Room Air 08/28/16 20:00 98 Nasal Cannula 2.0 08/28/16 19:27 36.7 73 18 96/59 98 2.0 08/28/16 19:06 77 18 92 Nasal Cannula 2.0 08/28/16 16:00 Nasal Cannula 2.0 08/28/16 15:15 36.4 77 18 101/65 93 Nasal Cannula 2.0 08/28/16 13:00 36.8 64 16 99/61 97 Nasal Cannula 2.0 08/28/16 12:00 Nasal Cannula 2.0 08/28/16 08:35 36.9 86 20 101/50 96 Nasal Cannula 2.0 08/28/16 08:00 Nasal Cannula 2.0 08/28/16 07:26 75 18 90 Nasal Cannula 2.0 Physical Exam: General-aaox3 Eyes-no scleral icterus ENT-mmm Neck-supple Lungs-cta Rpjoq-rah-cwlvl Abdomen-bs+ s/nt/nd Extremities-left arm in sling, no edema Neuro-nonfocal Current Inpatient Medications Medications (Trade) Dose Ordered Sig/Daniel Route Start Time Stop Time Status Last Admin Dose Admin Atorvastatin Calcium (Lipitor Tab) 20 mg QPM PO 08/17/16 21:00 09/16/16 20:59 08/28/16 20:56 20 MG Calcium Acetate (Phoslo Cap) 1,334 mg TIDM PO 08/18/16 08:30 09/17/16 08:29 08/28/16 15:59 1,334 MG Acetaminophen (Tylenol Tab) 650 mg Q4H PRN PO 08/17/16 16:45 09/16/16 16:44 08/28/16 12:47 650 MG Ondansetron HCl (Zofran Inj) 4 mg Q6H PRN IV 08/17/16 16:45 09/16/16 16:44 08/26/16 18:07 4 MG Albuterol/ Ipratropium (Duoneb) 3 ml Q2H PRN INH 08/17/16 19:45 09/16/16 19:44 08/27/16 17:00 3 ML Heparin Sodium (Porcine) (Heparin Sq 5000 Unit/0.5ml) 5,000 unit Q8 SQ 08/19/16 22:00 09/18/16 21:59 08/29/16 05:31 5,000 UNIT Tramadol HCl 50 mg 50 mg Q4H PRN PO 08/21/16 16:45 09/20/16 16:44 Future Hold 08/22/16 14:10 50 MG Acetaminophen/ Empty Bag (Ofirmev IV/ Empty Iv Bag 100ml) 65 ml @ 260 mls/hr Q6H PRN IV 08/21/16 20:30 09/20/16 20:29 08/27/16 19:41 260 MLS/HR Docusate Sodium (coLACE CAP) 100 mg BID PO 08/22/16 21:00 09/21/16 20:59 08/27/16 21:43 100 MG Enteral Nutritional Formula (Boost Breeze Nutritional Drink) 1 box BIDM PO 08/23/16 17:45 09/22/16 17:44 08/28/16 15:58 1 BOX Albuterol Sulfate (Ventolin 0.083% 2.5MG/3ML Neb) 2.5 mg Q6R INH 08/24/16 09:00 09/23/16 08:59 08/29/16 02:23 2.5 MG Lactulose (Chronulac Syrup) 20 gm Q6H PRN PO 08/25/16 11:30 09/24/16 11:29 08/25/16 14:22 20 GM Levofloxacin 1 ea 1 ea UD PRN N/A 08/26/16 14:15 09/25/16 14:14 Levofloxacin/Prmx (Levaquin / D5W/ Premixed D5W) 100 ml @ 100 mls/hr Q48H IV 08/28/16 15:00 09/04/16 14:59 08/28/16 15:58 100 MLS/HR Nystatin (Mycostatin Susp) 10 ml QID PO 08/27/16 13:00 09/06/16 12:59 08/28/16 20:57 10 ML Lactobacillus Acidophilus (Lactinex Granules Pack) 1 gm TIDM PO 08/28/16 16:45 09/27/16 16:44 08/28/16 15:59 1 GM Piperacillin Sod/ Tazobactam Sod 1 ea 1 ea UD PRN N/A 08/28/16 14:15 09/07/16 14:14 Piperacillin Sod/ Tazobactam Sod/ Dextrose (Zosyn Iv/D5 100ml) 115 ml @ 28.75 mls/ hr Q12H IV 08/29/16 02:00 09/05/16 01:59 08/29/16 02:15 28.75 MLS/HR Last 24 Hours Test 08/28/16 16:10 08/29/16 05:42 White Blood Count 14.08 K/uL Red Blood Count 3.66 M/uL Hemoglobin 9.0 g/dL Hematocrit 27.0 % Mean Corpuscular Volume 73.8 fL Mean Corpuscular Hemoglobin 24.6 pg Mean Corpuscular Hemoglobin Concent 33.3 g/dl Platelet Count 235 K/uL Mean Platelet Volume 10.3 fL Neutrophils (%) (Auto) 84.3 % Lymphocytes (%) (Auto) 8.0 % Monocytes (%) (Auto) 5.3 % Eosinophils (%) (Auto) 1.8 % Basophils (%) (Auto) 0.1 % Neutrophils # (Auto) 11.87 K/uL Lymphocytes # (Auto) 1.12 K/uL Monocytes # (Auto) 0.75 K/uL Eosinophils # (Auto) 0.26 K/uL Basophils # (Auto) 0.01 K/uL RDW Standard Deviation 39.8 fL RDW Coefficient of Variation 15.1 % Immature Granulocyte % (Auto) 0.5 % Immature Granulocyte # (Auto) 0.07 K/uL Sodium Level 131 mmol/L Potassium Level 5.1 mmol/L Chloride Level 92 mmol/L Carbon Dioxide Level 19 mmol/L Anion Gap 20.0 mmol/L Blood Urea Nitrogen 108 mg/dl Creatinine 9.70 mg/dl Est Creatinine Clear Calc Drug Dose 6.5 ml/min Estimated GFR () 5.2 Estimated GFR (Non- 4.5 BUN/Creatinine Ratio 11.1 Random Glucose 95 mg/dl Lactic Acid Level 0.7 mmol/L Calcium Level 8.2 mg/dl Phosphorus Level 6.3 mg/dl Magnesium Level 2.6 mg/dl Total Bilirubin 0.4 mg/dl Aspartate Amino Transf (AST/SGOT) 28 U/L Alanine Aminotransferase (ALT/SGPT) 48 U/L Alkaline Phosphatase 90 U/L Total Protein 6.4 gm/dl Albumin 2.2 gm/dl Globulin 4.2 gm/dl Albumin/Globulin Ratio 0.5 Thyroid Stimulating Hormone (TSH) 1.330 uIu/ml Date/Time Source Procedure Growth Status 08/28/16 16:10 Stool Rotavirus Antigen - Final SPECIMEN NEGATIVE FOR ROTAVIRUS ANTIGEN Complete 08/28/16 16:10 Stool WBC Smear Pending Received 08/28/16 16:10 Stool Shiga Toxin Test Pending Received 08/28/16 16:10 Stool Stool Culture Pending Received 08/28/16 10:15 Stool C.difficile Toxin B Gene (PCR) - Final No C. difficile toxin B gene detected Complete Assessment & Plan ESRD-last dialysis was sunday. plan on dialysis today for clearance of toxins and lowering of potassium. no uf today. Anemia of renal failure-pt is a religious and does not want blood products. continue procrit with dialysis. GI-pt for ct scan with oral and iv contrast. pt does still urinate some and will discuss further with hospitalist. if possible, would prefer to avoid iv contrast although understand if medically necessary.
[2016-08-29] MEDS ORDERED: EPOETIN ALFA 10,000 UNITS/ML VIAL IV. SCH (07:30)
[2016-08-29] MEDS: DOCUSATE SODIUM 100 MG CAP PO SCH ×2 (07:32→21:04)
[2016-08-29] MEDS: BOOST BREEZE NUTRITION DRINK 1 BOX PO SCH ×2 (08:02→17:51)
[2016-08-29] MEDS: NYSTATIN SUSP 500,000 U/5 ML UDC PO SCH ×4 (08:03→21:04)
[2016-08-29] MEDS: CALCIUM ACETATE 667MG GELCAP PO SCH ×3 (08:03→17:51)
[2016-08-29] MEDS: LACTOBACILLUS ACIDOPHILUS 1 GM PACK PO SCH ×3 (08:04→17:51)
--- NOTE | 2016-08-29 12:44 | DIAGNOSTIC IMAGING REPORT ---
CT SCAN OF THE ABDOMEN AND PELVIS WITHOUT IV CONTRAST CLINICAL HISTORY: Sepsis. COMPARISON STUDY: Abdominal CT dated 10/22/2011. TECHNIQUE: CT scan of the abdomen and pelvis is performed from the lung bases to the proximal femora. Images are reviewed in the axial, sagittal, and coronal planes. IV contrast was not administered for this examination as per the front clinician. Note that the examination was performed in suboptimal fashion without IV contrast. Oral contrast was utilized. The examination is also degraded by streak artifact from the patient's arms which could not be elevated above the abdomen. Automated dose control exposure was utilized. CT DOSE: 1941.38 mGy.cm FINDINGS: Lung bases: The patient is status post midline sternotomy. The heart is enlarged and without pericardial effusion. Pacemaker leads are noted. The coronary arteries are densely calcified. There is diminished attenuation of the cardiac blood pool as compared to the myocardium suggesting anemia. A tiny hiatal hernia is noted. There are small pleural effusions with dependent atelectasis. Gynecomastia is noted. Liver: Evaluation of the liver is degraded by streak artifact. The unenhanced liver is normal in size, contour, and attenuation. There is no intrahepatic biliary ductal dilatation. Gallbladder: There are tiny calcified gallstones. The gallbladder is distended and otherwise normal in appearance. Spleen: The spleen is enlarged measuring 16 cm in length. There are numerous calcified splenic granulomas. Pancreas: The unenhanced pancreas is atrophic. Scattered parenchyma calcifications suggest chronic pancreatitis. Adrenal glands: Unremarkable. Kidneys: The unenhanced kidneys are markedly atrophic, asymmetrically greater on the left. There is no hydronephrosis. A Staghorn calculus filling the left renal collecting system measures up to 4 cm. There is mild urothelial thickening in the left renal collecting system with minimal surrounding stranding. No right renal calculi are seen. A 1.8 cm cyst is noted in the left kidney. Additional bilateral subcentimeter cortical hypodensities also likely represent cysts but are too small for definitive characterization. Abdominal vasculature: There is advanced atherosclerotic calcification and mild ectasia of the abdominal aorta. Bowel: No bowel obstruction is seen. There is rectal wall thickening with perirectal inflammatory stranding. The appearance is consistent with a nonspecific proctitis. There is moderate to advanced colonic diverticulosis without CT evidence of acute diverticulitis. Mild colonic fecal retention is observed. The appendix is well-visualized and normal. There is a small duodenal diverticulum. Peritoneum: There is no intraperitoneal free air or abdominal ascites. Lymphadenopathy: None. Pelvic viscera: The prostate gland is atrophic. The bladder is normal as visualized. There is a small fat-containing left inguinal hernia. Skeletal structures: The skeletal structures are osteopenic. Mild lumbosacral spondylosis is observed. There is a mild compression deformity of L1. No lytic or blastic lesions are seen. A hemangioma is noted body of L3. There are bilateral pars defects at L5. No anterolisthesis is seen at L5-S1. IMPRESSION: 1. Suboptimal examination without IV contrast. 2. Findings are consistent with a nonspecific proctitis. Clinical correlation will be required. 3. Moderate to advanced colonic diverticulosis without CT evidence of acute diverticulitis. 4. A staghorn calculus is again noted in the markedly atrophic left kidney. There is mild urothelial thickening in the left renal pelvis with faint surrounding inflammatory stranding. This may the related to chronic inflammation. Correlate with clinical findings and urinalysis for evidence of urinary tract infection. 5. Small calcified gallstones are identified. The gallbladder appears distended but is otherwise normal in appearance. Correlation with clinical findings and serum bilirubin levels will be required. 6. Cardiomegaly and small pleural effusions. 7. Splenomegaly. 8. Additional changes as above. Electronically signed by: Star Aleman M.D. 08/29/2016 12:43 PM Dictated Date/Time: 08/29/2016 12:31 PM
[2016-08-29] MEDS ORDERED: ALBUMIN HUMAN 25% 12.5 GM/50 ML VIAL IV SCH (15:30)
--- NOTE | 2016-08-29 19:10 | Progress Note ---
Subjective Date of Service: Aug 29, 2016. Subjective Pt evaluation today including: conversation w/ patient, conversation w/ family , physical exam, chart review, conversation w/ advisor consultant Problem List Medical Problems: (1) Fracture of proximal end of left humerus Status: Acute (2) Fracture, humerus, anatomical neck Status: Acute (3) Multiple fractures of ribs of left side Status: Acute (4) Multiple fractures of ribs, left side, initial encounter for closed fracture Status: Acute (5) Weakness Status: Acute Medications ROS was unobtainable Objective Vital Signs Date Time Temp Pulse Resp B/P Pulse Ox O2 Delivery O2 Flow Rate FiO2 08/29/16 15:31 36.7 79 18 102/61 98 Nasal Cannula 2.0 08/29/16 14:42 36.4 95 125/65 08/29/16 14:00 100 107/79 08/29/16 13:45 114 105/67 08/29/16 13:30 105 112/64 08/29/16 13:15 95 111/61 08/29/16 13:00 85 101/63 08/29/16 12:52 84 96/66 08/29/16 12:45 64 85/59 08/29/16 12:30 88 97/60 08/29/16 12:15 106 137/78 08/29/16 12:00 96 115/72 08/29/16 11:45 65 140/65 08/29/16 11:32 36.5 100 118/63 08/29/16 11:02 36.5 77 22 123/58 97 Nasal Cannula 2.0 08/29/16 09:20 Nasal Cannula 2.0 08/29/16 08:00 Nasal Cannula 08/29/16 07:41 65 18 99 Nasal Cannula 3.0 08/29/16 07:35 36.5 114 20 95/59 95 3.0 08/29/16 04:00 95 Nasal Cannula 2.0 08/29/16 03:53 36.8 92 18 134/70 95 Nasal Cannula 2.0 08/29/16 02:23 78 18 94 Room Air 08/29/16 00:01 93 Nasal Cannula 2.0 08/29/16 00:00 36.7 94 22 127/67 93 Room Air 08/28/16 20:00 98 Nasal Cannula 2.0 2/13/17 19:27 36.7 73 18 96/59 98 2.0 Physical Exam General Appearance: + mild distress Eyes: normal inspection, EOMI ENT: normal ENT inspection, hearing grossly normal Neck: supple Respiratory/Chest: chest non-tender, lungs clear, normal breath sounds, no respiratory distress Cardiovascular: regular rate, rhythm, no edema, no murmur Abdomen: non tender, soft, no pulsatile mass Extremities: normal range of motion, no pedal edema Neurologic/Psychiatric: inner tube cutter II-XII nml as tested, no motor/sensory deficits, + pertinent finding (slightly lethargic and confused) Skin: normal color, warm/dry Laboratory Results Last 24 Hours Test 08/29/16 05:42 08/29/16 16:10 White Blood Count 14.08 K/uL Red Blood Count 3.66 M/uL Hemoglobin 9.0 g/dL Hematocrit 27.0 % Mean Corpuscular Volume 73.8 fL Mean Corpuscular Hemoglobin 24.6 pg Mean Corpuscular Hemoglobin Concent 33.3 g/dl Platelet Count 235 K/uL Mean Platelet Volume 10.3 fL Neutrophils (%) (Auto) 84.3 % Lymphocytes (%) (Auto) 8.0 % Monocytes (%) (Auto) 5.3 % Eosinophils (%) (Auto) 1.8 % Basophils (%) (Auto) 0.1 % Neutrophils # (Auto) 11.87 K/uL Lymphocytes # (Auto) 1.12 K/uL Monocytes # (Auto) 0.75 K/uL Eosinophils # (Auto) 0.26 K/uL Basophils # (Auto) 0.01 K/uL RDW Standard Deviation 39.8 fL RDW Coefficient of Variation 15.1 % Immature Granulocyte % (Auto) 0.5 % Immature Granulocyte # (Auto) 0.07 K/uL Sodium Level 131 mmol/L Potassium Level 5.1 mmol/L Chloride Level 92 mmol/L Carbon Dioxide Level 19 mmol/L Anion Gap 20.0 mmol/L Blood Urea Nitrogen 108 mg/dl Creatinine 9.70 mg/dl Est Creatinine Clear Calc Drug Dose 6.5 ml/min Estimated GFR () 5.2 Estimated GFR (Non- 4.5 BUN/Creatinine Ratio 11.1 Random Glucose 95 mg/dl Lactic Acid Level 0.7 mmol/L Calcium Level 8.2 mg/dl Phosphorus Level 6.3 mg/dl Magnesium Level 2.6 mg/dl Total Bilirubin 0.4 mg/dl Aspartate Amino Transf (AST/SGOT) 28 U/L Alanine Aminotransferase (ALT/SGPT) 48 U/L Alkaline Phosphatase 90 U/L Total Protein 6.4 gm/dl Albumin 2.2 gm/dl Globulin 4.2 gm/dl Albumin/Globulin Ratio 0.5 Thyroid Stimulating Hormone (TSH) 1.330 uIu/ml Assessment and Plan Septic shock with multiple potential sources of infection -Procalcitonin was elevated -persistent leukocytosis but improved today after starting zosyn yesterday -possible pneumonia (although no stigmata of pneumonia clinically) -not improving on Vanco/levofloxacin, vanco was stopped, Added zosyn renally adjusted dose yesterday and will consult ID - possibly can stop Levofloxacin after tomorrow's dose (6 days) -CT scan abd/pelv should possible left renal pyelonephritis, also showed proctitis - stool studies (Cx, O&P, Giardia, Desiree virus, WBCs, Heme occult) -C-diff was negative -blood and urine cultures all negative acute metabolic encephalopathy -initial inciting factors appear to be pain, sepsis, pain meds, hospital stay superimposed on likely somewhat brittle baseline of health RML density, questionable pneumonia -CXR haziness behind pacer, fits w exam findings, pulse ox /oxygenation also acutely worsened 08/26 -ddx is HAP vs aspiration - follow status, aspiration precautions L humerus fx -sling, supportive care rib fractures (multiple, closed) -pain control as possible ESRD -on HD - continue per nephrology Elevate dtrop, likely secondary to ESRD, Echo showed EF of 35-40% hold coreg and lisinopril CAD, prior CABG -appears overall stable, see above in regards to troponin -continue current meds chronic systolic CHF -appearing compensated - follow closely w volume for hypotension, however ambulatory dysfunction/leg weakness -Continue PT/OT -likely will need rehab dyslipidemia -Continue statin BPH -Continue tamsulosin DVT proph -heparin SQ
[2016-08-29] MEDS: ATORVASTATIN 20 MG TAB PO SCH (21:04)
[2016-08-30] VITALS (25 sets, daily range): BP systolic 91–146; BP diastolic 52–87; PULSE 52–109; TEMP 36.6–36.9; O2SAT 94–99
[2016-08-30] MEDS: ALBUTEROL 0.083% NEBU SOLN 3 ML VIAL INH SCH ×4 (01:41→20:19)
[2016-08-30] MEDS: PIPERACILL/TAZOBAC IV 3.375 GM in DEXTROSE 5% 100ML IV SCH ×2 (02:15→12:09)
[2016-08-30] MEDS: HEPARIN SOD 5000 UNIT/0.5 ML CARP SQ SCH ×3 (06:07→22:13)
[2016-08-30 07:30] LABS: BASO % 0.2 %; BASO ABS # 0.02 K/uL (0-0.2); EOS % 1.4 %; HEMATOCRIT 26.1 % (42-52); LYMPH % 8.9 %; LYMPH ABS # 0.99 K/uL (1.2-3.4); MEAN CELL VOLUME 73.9 fL (80-100); MEAN CORPUSCULAR HEMOGLOBIN 24.4 pg (25-34); MEAN PLATELET VOLUME 10.4 fL (7.4-10.4); MONO % 7.3 %; NEUT % 81.2 %; PLATELET COUNT 254 K/uL (130-400); RED BLOOD COUNT 3.53 M/uL (4.7-6.1); WHITE BLOOD COUNT 11.08 K/uL (4.8-10.8)
[2016-08-30 08:01] LABS: COMPLETE YES; OVALOCYTES 1+; POLYCHROMASIA 1+
[2016-08-30 08:06] LABS: ALB/GLOB RATIO 0.5 (0.9-2); BUN/CREATININE RATIO 9.5 (10-20); CALCIUM 7.9 mg/dl (8.5-10.1); CREATININE 7.3 mg/dl (0.60-1.40); MAGNESIUM 2.5 mg/dl (1.8-2.4); PHOSPHORUS 5.9 mg/dl (2.5-4.9); POTASSIUM 4.7 mmol/L (3.5-5.1)
[2016-08-30] MEDS: CALCIUM ACETATE 667MG GELCAP PO SCH ×3 (08:11→19:28)
[2016-08-30] MEDS: BOOST BREEZE NUTRITION DRINK 1 BOX PO SCH ×2 (08:11→19:27)
[2016-08-30] MEDS: DOCUSATE SODIUM 100 MG CAP PO SCH ×2 (08:12→20:16)
[2016-08-30] MEDS: LACTOBACILLUS ACIDOPHILUS 1 GM PACK PO SCH ×3 (08:12→19:29)
[2016-08-30] MEDS: NYSTATIN SUSP 500,000 U/5 ML UDC PO SCH ×4 (08:12→20:17)
--- NOTE | 2016-08-30 09:09 | Nephrology Progress Note ---
Nephrology Progress Note Date of Service: Aug 30, 2016. Subjective 81 yo male with esrd who fell and had humerus fracture/rib fractures. pt with delirium of unclear etiology. pt also with hypotension. pt with diarrhea. pt underwent ct scan showing proctitis. pt sleepy this morning. had dialysis yesterday and was shortened treatment. pt agreeable for dialysis today. Objective Date Time Temp Pulse Resp B/P Pulse Ox O2 Delivery O2 Flow Rate FiO2 08/30/16 07:23 36.9 88 20 93/52 99 Nasal Cannula 2.0 08/30/16 07:17 74 18 98 Nasal Cannula 2.0 08/30/16 04:00 97 Nasal Cannula 2.0 08/30/16 03:43 36.7 106 20 110/57 97 Room Air 08/30/16 01:41 109 18 94 Nasal Cannula 2.0 08/30/16 00:01 Nasal Cannula 2.0 08/29/16 22:55 36.9 81 18 118/61 97 Nasal Cannula 2.0 08/29/16 20:21 78 18 96 Nasal Cannula 2.0 08/29/16 20:00 Nasal Cannula 2.0 08/29/16 18:54 36.8 89 22 92/52 95 Nasal Cannula 2.0 08/29/16 16:00 Nasal Cannula 2.0 08/29/16 15:31 36.7 79 18 102/61 98 Nasal Cannula 2.0 08/29/16 14:42 36.4 95 125/65 08/29/16 14:00 100 107/79 08/29/16 13:45 114 105/67 08/29/16 13:30 105 112/64 08/29/16 13:15 95 111/61 08/29/16 13:00 85 101/63 08/29/16 12:52 84 96/66 08/29/16 12:45 64 85/59 08/29/16 12:30 88 97/60 08/29/16 12:15 106 137/78 08/29/16 12:00 96 115/72 08/29/16 11:45 65 140/65 08/29/16 11:32 36.5 100 118/63 08/29/16 11:02 36.5 77 22 123/58 97 Nasal Cannula 2.0 08/29/16 09:20 Nasal Cannula 2.0 Physical Exam: General-aaox3, sleepy Eyes-no scleral icterus ENT-mmm Neck-supple Lungs-clear [id number] Abdomen-bs+ s/nt/nd Extremities- no edema Neuro-nonfocal, sleepy Current Inpatient Medications Medications (Trade) Dose Ordered Sig/Daniel Route Start Time Stop Time Status Last Admin Dose Admin Atorvastatin Calcium (Lipitor Tab) 20 mg QPM PO 08/17/16 21:00 09/16/16 20:59 08/29/16 21:04 20 MG Calcium Acetate (Phoslo Cap) 1,334 mg TIDM PO 08/18/16 08:30 09/17/16 08:29 08/30/16 08:11 1,334 MG Acetaminophen (Tylenol Tab) 650 mg Q4H PRN PO 08/17/16 16:45 09/16/16 16:44 08/28/16 12:47 650 MG Ondansetron HCl (Zofran Inj) 4 mg Q6H PRN IV 08/17/16 16:45 09/16/16 16:44 08/26/16 18:07 4 MG Albuterol/ Ipratropium (Duoneb) 3 ml Q2H PRN INH 08/17/16 19:45 09/16/16 19:44 08/27/16 17:00 3 ML Heparin Sodium (Porcine) (Heparin Sq 5000 Unit/0.5ml) 5,000 unit Q8 SQ 08/19/16 22:00 09/18/16 21:59 08/30/16 06:07 5,000 UNIT Tramadol HCl 50 mg 50 mg Q4H PRN PO 08/21/16 16:45 09/20/16 16:44 Future Hold 08/22/16 14:10 50 MG Acetaminophen/ Empty Bag (Ofirmev IV/ Empty Iv Bag 100ml) 65 ml @ 260 mls/hr Q6H PRN IV 08/21/16 20:30 09/20/16 20:29 08/27/16 19:41 260 MLS/HR Docusate Sodium (coLACE CAP) 100 mg BID PO 08/22/16 21:00 09/21/16 20:59 08/29/16 21:04 100 MG Enteral Nutritional Formula (Boost Breeze Nutritional Drink) 1 box BIDM PO 08/23/16 17:45 09/22/16 17:44 2/15/17 08:11 1 BOX Albuterol Sulfate (Ventolin 0.083% 2.5MG/3ML Neb) 2.5 mg Q6R INH 08/24/16 09:00 09/23/16 08:59 08/30/16 07:17 2.5 MG Lactulose (Chronulac Syrup) 20 gm Q6H PRN PO 08/25/16 11:30 09/24/16 11:29 08/25/16 14:22 20 GM Levofloxacin 1 ea 1 ea UD PRN N/A 08/26/16 14:15 09/25/16 14:14 Levofloxacin/Prmx (Levaquin / D5W/ Premixed D5W) 100 ml @ 100 mls/hr Q48H IV 08/28/16 15:00 09/04/16 14:59 08/28/16 15:58 100 MLS/HR Nystatin (Mycostatin Susp) 10 ml QID PO 08/27/16 13:00 09/06/16 12:59 08/30/16 08:12 10 ML Lactobacillus Acidophilus (Lactinex Granules Pack) 1 gm TIDM PO 08/28/16 16:45 09/27/16 16:44 08/30/16 08:12 1 GM Piperacillin Sod/ Tazobactam Sod 1 ea 1 ea UD PRN N/A 08/28/16 14:15 09/07/16 14:14 Piperacillin Sod/ Tazobactam Sod/ Dextrose (Zosyn Iv/D5 100ml) 115 ml @ 28.75 mls/ hr Q12H IV 08/29/16 02:00 09/05/16 01:59 08/30/16 02:15 28.75 MLS/HR Last 24 Hours Test 08/29/16 16:10 08/30/16 07:19 White Blood Count 11.08 K/uL Red Blood Count 3.53 M/uL Hemoglobin 8.6 g/dL Hematocrit 26.1 % Mean Corpuscular Volume 73.9 fL Mean Corpuscular Hemoglobin 24.4 pg Mean Corpuscular Hemoglobin Concent 33.0 g/dl Platelet Count 254 K/uL Mean Platelet Volume 10.4 fL Neutrophils (%) (Auto) 81.2 % Lymphocytes (%) (Auto) 8.9 % Monocytes (%) (Auto) 7.3 % Eosinophils (%) (Auto) 1.4 % Basophils (%) (Auto) 0.2 % Neutrophils # (Auto) 9.00 K/uL Lymphocytes # (Auto) 0.99 K/uL Monocytes # (Auto) 0.81 K/uL Eosinophils # (Auto) 0.15 K/uL Basophils # (Auto) 0.02 K/uL RDW Standard Deviation 41.1 fL RDW Coefficient of Variation 15.5 % Immature Granulocyte % (Auto) 1.0 % Immature Granulocyte # (Auto) 0.11 K/uL Polychromasia 1+ Ovalocytes 1+ Sodium Level 135 mmol/L Potassium Level 4.7 mmol/L Chloride Level 98 mmol/L Carbon Dioxide Level 22 mmol/L Anion Gap 15.0 mmol/L Blood Urea Nitrogen 69 mg/dl Creatinine 7.30 mg/dl Est Creatinine Clear Calc Drug Dose 9.6 ml/min Estimated GFR () 7.3 Estimated GFR (Non- 6.3 BUN/Creatinine Ratio 9.5 Random Glucose 97 mg/dl Lactic Acid Level 0.7 mmol/L Calcium Level 7.9 mg/dl Phosphorus Level 5.9 mg/dl Magnesium Level 2.5 mg/dl Total Bilirubin 0.5 mg/dl Aspartate Amino Transf (AST/SGOT) 36 U/L Alanine Aminotransferase (ALT/SGPT) 48 U/L Alkaline Phosphatase 99 U/L Total Protein 6.2 gm/dl Albumin 2.0 gm/dl Globulin 4.2 gm/dl Albumin/Globulin Ratio 0.5 Assessment & Plan ESRD-had dialysis yesterday and for dialysis today to put him back on a schedule. no fluid removal. bp still low. Anemia of renal failure-pt is a jewish and does not want blood products. continue procrit with dialysis. GI-pt with proctitis and chronic diarrhea. I recall a conversation with him this past month, where he has been taking immodium for several months to help with fecal incontinence. he had an accident once on dialysis and has been taking immodium everyday since then to help prevent accidents but then would get very backed up and have an accident from pressure. i recommended backing off on the immodium to just being on dialysis days. perhaps the diarrhea is his baseline which was masked from the chronic immodium. will give him a dose of immodium now.
[2016-08-30] MEDS ORDERED: LOPERAMIDE HCL 2 MG CAP PO ONE (09:15)
[2016-08-30] MEDS ORDERED: ALBUMIN HUMAN 25% 12.5 GM/50 ML VIAL IV SCH (09:30)
[2016-08-30] MEDS ORDERED: EPOETIN ALFA 10,000 UNITS/ML VIAL IV. SCH (09:30)
[2016-08-30] MEDS ORDERED: HEPARIN SOD (PORCINE) 1000 UNIT/ML 10 ML VIAL IV SCH (09:30)
--- NOTE | 2016-08-30 11:59 | Medical Consult ---
Consultation Date of Consultation: Aug 30, 2016. Attending Physician: Damir Cortes MD History of Present Illness 81M with a PMHx of ESRD on dialysis that presents s/p fall on the carpet at [facility]. Pt has a right humerus fracture that his being treated conservatively. Patient is unable to give an extended history due to being exesively tired. Patient received dialysis yesterday that had to be cut short due to diarrhea. Patient will finish his dialysis today. Patient reports that his diarrhea has decreased. Patient denies being in any pain aside from his left upper arm (site of fracture). According to nurse patient forgot he was on a bedpan today. Patient is still producing urine despite ESRD. ROS: Denies fevers, abdominal pain, pain in the extremities. Patient states that he hasn't slept much in the past two days but plans to get a lot of sleep today. SH: Lives with his , was ambulating without assistance before admission. admitted after fall, lethargic at time during exam but answers questions appropriately. no fevers, feeling better. states diarrhea resolved, no abd pain , eating well. no n/v. no blood in stool. cultures negative, c diff negative.all remaining ros reviewed and are negative. Past Medical/Surgical History Medical Problems: (1) Fracture, humerus, anatomical neck Status: Acute (2) Multiple fractures of ribs, left side, initial encounter for closed fracture Status: Acute Family History FHx: cancer FHx: heart disease FHx: hypertension FHx: kidney disease Social History Smoking Status: Former Smoker Drug Use: none Marital Status: Housing Status: lives with significant other Occupation Status: retired Allergies Coded Allergies: No Known Allergies (Verified , `, 10/22/11) Current Inpatient Medications Current Inpatient Medications Medications (Trade) Dose Ordered Sig/Daniel Route Start Time Stop Time Status Last Admin Dose Admin Atorvastatin Calcium (Lipitor Tab) 20 mg QPM PO 08/17/16 21:00 09/16/16 20:59 08/29/16 21:04 20 MG Calcium Acetate (Phoslo Cap) 1,334 mg TIDM PO 08/18/16 08:30 09/17/16 08:29 08/30/16 08:11 1,334 MG Acetaminophen (Tylenol Tab) 650 mg Q4H PRN PO 08/17/16 16:45 09/16/16 16:44 08/28/16 12:47 650 MG Ondansetron HCl (Zofran Inj) 4 mg Q6H PRN IV 08/17/16 16:45 09/16/16 16:44 08/26/16 18:07 4 MG Albuterol/ Ipratropium (Duoneb) 3 ml Q2H PRN INH 08/17/16 19:45 09/16/16 19:44 08/27/16 17:00 3 ML Heparin Sodium (Porcine) (Heparin Sq 5000 Unit/0.5ml) 5,000 unit Q8 SQ 08/19/16 22:00 09/18/16 21:59 08/30/16 06:07 5,000 UNIT Tramadol HCl 50 mg 50 mg Q4H PRN PO 08/21/16 16:45 09/20/16 16:44 Future Hold 08/22/16 14:10 50 MG Acetaminophen/ Empty Bag (Ofirmev IV/ Empty Iv Bag 100ml) 65 ml @ 260 mls/hr Q6H PRN IV 08/21/16 20:30 09/20/16 20:29 08/27/16 19:41 260 MLS/HR Docusate Sodium (coLACE CAP) 100 mg BID PO 08/22/16 21:00 09/21/16 20:59 08/29/16 21:04 100 MG Enteral Nutritional Formula (Boost Breeze Nutritional Drink) 1 box BIDM PO 08/23/16 17:45 09/22/16 17:44 08/30/16 08:11 1 BOX Albuterol Sulfate (Ventolin 0.083% 2.5MG/3ML Neb) 2.5 mg Q6R INH 08/24/16 09:00 09/23/16 08:59 08/30/16 07:17 2.5 MG Lactulose (Chronulac Syrup) 20 gm Q6H PRN PO 08/25/16 11:30 09/24/16 11:29 08/25/16 14:22 20 GM Levofloxacin 1 ea 1 ea UD PRN N/A 08/26/16 14:15 09/25/16 14:14 Levofloxacin/Prmx (Levaquin / D5W/ Premixed D5W) 100 ml @ 100 mls/hr Q48H IV 08/28/16 15:00 09/04/16 14:59 08/28/16 15:58 100 MLS/HR Nystatin (Mycostatin Susp) 10 ml QID PO 08/27/16 13:00 09/06/16 12:59 08/30/16 08:12 10 ML Lactobacillus Acidophilus (Lactinex Granules Pack) 1 gm TIDM PO 08/28/16 16:45 09/27/16 16:44 08/30/16 08:12 1 GM Piperacillin Sod/ Tazobactam Sod 1 ea 1 ea UD PRN N/A 08/28/16 14:15 09/07/16 14:14 Piperacillin Sod/ Tazobactam Sod/ Dextrose (Zosyn Iv/D5 100ml) 115 ml @ 28.75 mls/ hr Q12H IV 08/29/16 02:00 09/05/16 01:59 08/30/16 02:15 28.75 MLS/HR Epoetin Andrei (Procrit Inj) 10,000 units 0930 IV. 08/30/16 09:30 08/30/16 18:00 Albumin Human (Albumin 25%) 12.5 gm 0930 IV 08/30/16 09:30 08/30/16 18:00 Heparin Sodium (Porcine) (Heparin Iv Bolus) 2,000 unit 0930 IV 08/30/16 09:30 08/30/16 18:00 Review of Systems Constitutional: No chills, No fever, No sweats, No weakness, No weight loss Respiratory: No cough, No shortness of breath, No sputum, No wheezing Integumentary: No rash Physical Exam Date Time Temp Pulse Resp B/P Pulse Ox O2 Delivery O2 Flow Rate FiO2 08/30/16 08:00 Nasal Cannula 2.0 08/30/16 07:23 36.9 88 20 93/52 99 Nasal Cannula 2.0 08/30/16 07:17 74 18 98 Nasal Cannula 2.0 08/30/16 04:00 97 Nasal Cannula 2.0 08/30/16 03:43 36.7 106 20 110/57 97 Room Air 08/30/16 01:41 109 18 94 Nasal Cannula 2.0 08/30/16 00:01 Nasal Cannula 2.0 08/29/16 22:55 36.9 81 18 118/61 97 Nasal Cannula 2.0 08/29/16 20:21 78 18 96 Nasal Cannula 2.0 08/29/16 20:00 Nasal Cannula 2.0 08/29/16 18:54 36.8 89 22 92/52 95 Nasal Cannula 2.0 08/29/16 16:00 Nasal Cannula 2.0 08/29/16 15:31 36.7 79 18 102/61 98 Nasal Cannula 2.0 08/29/16 14:42 36.4 95 125/65 08/29/16 14:00 100 107/79 08/29/16 13:45 114 105/67 08/29/16 13:30 105 112/64 08/29/16 13:15 95 111/61 08/29/16 13:00 85 101/63 08/29/16 12:52 84 96/66 08/29/16 12:45 64 85/59 08/29/16 12:30 88 97/60 08/29/16 12:15 106 137/78 08/29/16 12:00 96 115/72 08/29/16 11:45 65 140/65 General Appearance: WD/WN, no apparent distress, + obese Eyes: normal inspection ENT: normal ENT inspection Respiratory/Chest: chest non-tender, lungs clear, normal breath sounds, no respiratory distress, no accessory muscle use Cardiovascular: regular rate, rhythm, no edema, no gallop, no JVD, no murmur Abdomen/GI: non tender, soft Back: no CVA tenderness Extremities/Musculoskelatal: no calf tenderness, no pedal edema, + pertinent finding (ecchymosis over the left upper arm, pts left arm is in a sling, dialysis fistula is intact and there are no signs of infection. ) Neurologic/Psych: alert, normal mood/affect, normal reflexes, oriented x 3, + pertinent finding (Patient appears tired and falls asleep after a short conversation. ) Skin: normal color, warm/dry, no rash, + pertinent finding (no signs of infection) Lymphatic: no adenopathy Laboratory Results Last 24 Hours Test 08/29/16 16:10 08/30/16 07:19 White Blood Count 11.08 K/uL Red Blood Count 3.53 M/uL Hemoglobin 8.6 g/dL Hematocrit 26.1 % Mean Corpuscular Volume 73.9 fL Mean Corpuscular Hemoglobin 24.4 pg Mean Corpuscular Hemoglobin Concent 33.0 g/dl Platelet Count 254 K/uL Mean Platelet Volume 10.4 fL Neutrophils (%) (Auto) 81.2 % Lymphocytes (%) (Auto) 8.9 % Monocytes (%) (Auto) 7.3 % Eosinophils (%) (Auto) 1.4 % Basophils (%) (Auto) 0.2 % Neutrophils # (Auto) 9.00 K/uL Lymphocytes # (Auto) 0.99 K/uL Monocytes # (Auto) 0.81 K/uL Eosinophils # (Auto) 0.15 K/uL Basophils # (Auto) 0.02 K/uL RDW Standard Deviation 41.1 fL RDW Coefficient of Variation 15.5 % Immature Granulocyte % (Auto) 1.0 % Immature Granulocyte # (Auto) 0.11 K/uL Polychromasia 1+ Ovalocytes 1+ Sodium Level 135 mmol/L Potassium Level 4.7 mmol/L Chloride Level 98 mmol/L Carbon Dioxide Level 22 mmol/L Anion Gap 15.0 mmol/L Blood Urea Nitrogen 69 mg/dl Creatinine 7.30 mg/dl Est Creatinine Clear Calc Drug Dose 9.6 ml/min Estimated GFR () 7.3 Estimated GFR (Non- 6.3 BUN/Creatinine Ratio 9.5 Random Glucose 97 mg/dl Lactic Acid Level 0.7 mmol/L Calcium Level 7.9 mg/dl Phosphorus Level 5.9 mg/dl Magnesium Level 2.5 mg/dl Total Bilirubin 0.5 mg/dl Aspartate Amino Transf (AST/SGOT) 36 U/L Alanine Aminotransferase (ALT/SGPT) 48 U/L Alkaline Phosphatase 99 U/L Total Protein 6.2 gm/dl Albumin 2.0 gm/dl Globulin 4.2 gm/dl Albumin/Globulin Ratio 0.5 Assessment & Plan (1) Proctitis Assessment & Plan: I performed an H&P on this pt and reviewed above note. agree with assessment and plan. will continue zosyn 3 more days for proctitis, blood cultures negative, leukocytosis resolving, afebrile. (2) Leukocytosis 81M on dialysis s/p fall and left humerus fracture. Currently on Zosyn and Levofloxacin. Hospital Day #13. ID consulted for SIRS. SIRS, secondary to proctitis - Patient has no overt signs of infection. Stool testing, blood cultures and UA are negative. Giardia and norovirus pending but in light of resolved diarrhea they are unlikely etiologies. Pt is afebrile. Lungs sounds clear. CT Abdomen and Pelvis on 06/28/2017 is suggestive with non specific proctitis. In light of no other source of infection would recommend continuing Zosyn and discontinuing Levofloxacin for GI bug coverage 2/2 proctitis. Diarrhea (resolved) - Likely from proctatis, continue Zosyn, re-hydrate as needed, f/u Giardia and Norovirus, continue to monitor. Lethargy, multifactorial - May be multifactorial from ESRD, dehydration, proctitis and lack of sleep. Continue ABx, rehydration and dialysis today. Continue to monitor. Resident Involvement: Resident Care Provided Care Provided: Adult Hospital Medicine
--- NOTE | 2016-08-30 17:12 | Progress Note ---
Subjective Date of Service: Aug 30, 2016. Subjective Pt evaluation today including: conversation w/ patient, conversation w/ family , physical exam, lab review, conversation w/ health management consultant Problem List Medical Problems: (1) Fracture, humerus, anatomical neck Status: Acute (2) Multiple fractures of ribs, left side, initial encounter for closed fracture Status: Acute Review of Systems Constitutional: No chills, No fatigue, No fever, No problem reported, No see HPI, No sweats, No weakness, No weight loss Eyes: No diplopia, No discharge, No eye pain, No problem reported, No redness, No see HPI, No worsening of vision ENT: No dental problems, No hearing loss, No nasal symptoms, No problem reported, No see HPI, No sore throat, No tinnitus, No trouble swallowing, No unusual epistaxis Respiratory: No cough, No dyspnea at rest, No dyspnea on exertion, No hemoptysis, No problem reported, No see HPI, No shortness of breath, No sputum, No wheezing Cardiac: No PND, No chest pain, No claudication, No edema, No orthopnea, No palpitations, No problem reported, No see HPI Abdomen: No GI bleeding, No constipation, No diarrhea, No nausea, No pain, No problem reported, No see HPI, No vomiting Musculoskeletal: No calf pain, No joint pain, No muscle pain, No problem reported, No see HPI, No swelling Psychiatric: No anhedonism, No anxiety, No depression symptoms, No insomnia, No problem reported, No see HPI, No substance abuse Heme: No abnormal bleeding/bruising, No clotting problems, No night sweats, No problem reported, No see HPI, No swollen lymph nodes Skin: No bleeding, No color change, No itch, No new/changing skin lesions, No problem reported, No rash, No see HPI Medications Current Inpatient Medications Medications (Trade) Dose Ordered Sig/Daniel Route Start Time Stop Time Status Last Admin Dose Admin Atorvastatin Calcium (Lipitor Tab) 20 mg QPM PO 08/17/16 21:00 09/16/16 20:59 08/29/16 21:04 20 MG Calcium Acetate (Phoslo Cap) 1,334 mg TIDM PO 08/18/16 08:30 09/17/16 08:29 08/30/16 12:08 1,334 MG Acetaminophen (Tylenol Tab) 650 mg Q4H PRN PO 08/17/16 16:45 09/16/16 16:44 08/28/16 12:47 650 MG Ondansetron HCl (Zofran Inj) 4 mg Q6H PRN IV 08/17/16 16:45 09/16/16 16:44 08/26/16 18:07 4 MG Albuterol/ Ipratropium (Duoneb) 3 ml Q2H PRN INH 08/17/16 19:45 09/16/16 19:44 08/27/16 17:00 3 ML Heparin Sodium (Porcine) (Heparin Sq 5000 Unit/0.5ml) 5,000 unit Q8 SQ 08/19/16 22:00 09/18/16 21:59 08/30/16 14:30 5,000 UNIT Tramadol HCl 50 mg 50 mg Q4H PRN PO 08/21/16 16:45 09/20/16 16:44 Future Hold 08/22/16 14:10 50 MG Acetaminophen/ Empty Bag (Ofirmev IV/ Empty Iv Bag 100ml) 65 ml @ 260 mls/hr Q6H PRN IV 08/21/16 20:30 09/20/16 20:29 08/27/16 19:41 260 MLS/HR Docusate Sodium (coLACE CAP) 100 mg BID PO 08/22/16 21:00 09/21/16 20:59 08/29/16 21:04 100 MG Enteral Nutritional Formula (Boost Breeze Nutritional Drink) 1 box BIDM PO 08/23/16 17:45 09/22/16 17:44 08/30/16 08:11 1 BOX Albuterol Sulfate (Ventolin 0.083% 2.5MG/3ML Neb) 2.5 mg Q6R INH 08/24/16 09:00 09/23/16 08:59 08/30/16 14:11 2.5 MG Lactulose (Chronulac Syrup) 20 gm Q6H PRN PO 08/25/16 11:30 09/24/16 11:29 08/25/16 14:22 20 GM Nystatin (Mycostatin Susp) 10 ml QID PO 08/27/16 13:00 09/06/16 12:59 08/30/16 12:08 10 ML Lactobacillus Acidophilus (Lactinex Granules Pack) 1 gm TIDM PO 08/28/16 16:45 09/27/16 16:44 08/30/16 12:09 1 GM Piperacillin Sod/ Tazobactam Sod 1 ea 1 ea UD PRN N/A 08/28/16 14:15 09/07/16 14:14 Piperacillin Sod/ Tazobactam Sod/ Dextrose (Zosyn Iv/D5 100ml) 115 ml @ 28.75 mls/ hr Q12H IV 08/29/16 02:00 09/05/16 01:59 08/30/16 12:09 28.75 MLS/HR Epoetin Andrei (Procrit Inj) 10,000 units 0930 IV. 08/30/16 09:30 08/30/16 18:00 Albumin Human (Albumin 25%) 12.5 gm 0930 IV 08/30/16 09:30 08/30/16 18:00 Heparin Sodium (Porcine) (Heparin Iv Bolus) 2,000 unit 0930 IV 08/30/16 09:30 08/30/16 18:00 Objective Vital Signs Date Time Temp Pulse Resp B/P Pulse Ox O2 Delivery O2 Flow Rate FiO2 08/30/16 16:45 87 125/78 08/30/16 16:30 79 123/60 08/30/16 16:15 52 146/71 08/30/16 16:00 68 136/57 08/30/16 15:45 68 127/85 08/30/16 15:30 69 101/58 08/30/16 15:10 76 93/54 08/30/16 14:11 78 18 98 Nasal Cannula 2.0 08/30/16 12:00 Nasal Cannula 2.0 08/30/16 12:00 36.7 85 18 97/52 96 08/30/16 08:00 Nasal Cannula 2.0 08/30/16 07:23 36.9 88 20 93/52 99 Nasal Cannula 2.0 08/30/16 07:17 74 18 98 Nasal Cannula 2.0 08/30/16 04:00 97 Nasal Cannula 2.0 08/30/16 03:43 36.7 106 20 110/57 97 Room Air 08/30/16 01:41 109 18 94 Nasal Cannula 2.0 08/30/16 00:01 Nasal Cannula 2.0 08/29/16 22:55 36.9 81 18 118/61 97 Nasal Cannula 2.0 08/29/16 20:21 78 18 96 Nasal Cannula 2.0 08/29/16 20:00 Nasal Cannula 2.0 08/29/16 18:54 36.8 89 22 92/52 95 Nasal Cannula 2.0 Physical Exam General Appearance: + mild distress Eyes: normal inspection, EOMI ENT: normal ENT inspection, hearing grossly normal Neck: supple Respiratory/Chest: chest non-tender, lungs clear, normal breath sounds, no respiratory distress Cardiovascular: regular rate, rhythm, no edema, no gallop, no JVD Abdomen: normal bowel sounds, non tender, soft, no organomegaly Extremities: normal range of motion, non-tender, normal inspection Neurologic/Psychiatric: contract writer II-XII nml as tested, no motor/sensory deficits, normal mood/affect, + pertinent finding (slightly confused but improved) Skin: normal color Laboratory Results Last 24 Hours Test 08/30/16 07:19 White Blood Count 11.08 K/uL Red Blood Count 3.53 M/uL Hemoglobin 8.6 g/dL Hematocrit 26.1 % Mean Corpuscular Volume 73.9 fL Mean Corpuscular Hemoglobin 24.4 pg Mean Corpuscular Hemoglobin Concent 33.0 g/dl Platelet Count 254 K/uL Mean Platelet Volume 10.4 fL Neutrophils (%) (Auto) 81.2 % Lymphocytes (%) (Auto) 8.9 % Monocytes (%) (Auto) 7.3 % Eosinophils (%) (Auto) 1.4 % Basophils (%) (Auto) 0.2 % Neutrophils # (Auto) 9.00 K/uL Lymphocytes # (Auto) 0.99 K/uL Monocytes # (Auto) 0.81 K/uL Eosinophils # (Auto) 0.15 K/uL Basophils # (Auto) 0.02 K/uL RDW Standard Deviation 41.1 fL RDW Coefficient of Variation 15.5 % Immature Granulocyte % (Auto) 1.0 % Immature Granulocyte # (Auto) 0.11 K/uL Polychromasia 1+ Ovalocytes 1+ Sodium Level 135 mmol/L Potassium Level 4.7 mmol/L Chloride Level 98 mmol/L Carbon Dioxide Level 22 mmol/L Anion Gap 15.0 mmol/L Blood Urea Nitrogen 69 mg/dl Creatinine 7.30 mg/dl Est Creatinine Clear Calc Drug Dose 9.6 ml/min Estimated GFR () 7.3 Estimated GFR (Non- 6.3 BUN/Creatinine Ratio 9.5 Random Glucose 97 mg/dl Lactic Acid Level 0.7 mmol/L Calcium Level 7.9 mg/dl Phosphorus Level 5.9 mg/dl Magnesium Level 2.5 mg/dl Total Bilirubin 0.5 mg/dl Aspartate Amino Transf (AST/SGOT) 36 U/L Alanine Aminotransferase (ALT/SGPT) 48 U/L Alkaline Phosphatase 99 U/L Total Protein 6.2 gm/dl Albumin 2.0 gm/dl Globulin 4.2 gm/dl Albumin/Globulin Ratio 0.5 Assessment and Plan Septic shock with multiple potential sources of infection, improving -Procalcitonin was elevated -persistent leukocytosis but improved today after starting zosyn 2 days ago -possible pneumonia (although no stigmata of pneumonia clinically) -not improving on Vanco/levofloxacin, vanco was stopped, Added zosyn renally adjusted dose yesterday - consult ID was appreciated and levofloxacin was stopped -CT scan abd/pelv should possible left renal pyelonephritis, also showed proctitis - stool studies (Cx, O&P, Giardia, Desiree virus, WBCs, Heme occult) -C-diff was negative -blood and urine cultures all negative acute metabolic encephalopathy, improving -initial inciting factors appear to be pain, sepsis, pain meds, hospital stay superimposed on likely somewhat brittle baseline of health RML density, questionable pneumonia S/P 6 days of levofloxacin -ddx is HAP vs aspiration - follow status, aspiration precautions L humerus fx -sling, supportive care rib fractures (multiple, closed) -pain control as possible ESRD -on HD - continue per nephrology Elevate trop, likely secondary to ESRD, Echo showed EF of 35-40% hold coreg and lisinopril CAD, prior CABG -appears overall stable, see above in regards to troponin -continue current meds chronic systolic CHF -appearing compensated - follow closely w volume for hypotension, however ambulatory dysfunction/leg weakness -Continue PT/OT -likely will need rehab dyslipidemia -Continue statin BPH -Continue tamsulosin DVT proph -heparin SQ
[2016-08-30] MEDS: ACETAMINOPHEN IV 650 MG in EMPTY BAG 0 ML IV PRN (20:12)
[2016-08-30] MEDS: ATORVASTATIN 20 MG TAB PO SCH (20:17)
[2016-08-31] VITALS (10 sets, daily range): BP systolic 90–155; BP diastolic 57–70; PULSE 79–109; TEMP 36.3–37; O2SAT 94–99
[2016-08-31] MEDS: PIPERACILL/TAZOBAC IV 3.375 GM in DEXTROSE 5% 100ML IV SCH ×2 (02:01→12:47)
[2016-08-31] MEDS: ALBUTEROL 0.083% NEBU SOLN 3 ML VIAL INH SCH ×4 (02:24→20:47)
[2016-08-31] MEDS: ACETAMINOPHEN IV 650 MG in EMPTY BAG 0 ML IV PRN (03:17)
[2016-08-31] MEDS: HEPARIN SOD 5000 UNIT/0.5 ML CARP SQ SCH ×3 (06:05→22:43)
[2016-08-31] MEDS: LACTOBACILLUS ACIDOPHILUS 1 GM PACK PO SCH ×3 (07:24→18:41)
[2016-08-31] MEDS: CALCIUM ACETATE 667MG GELCAP PO SCH ×3 (07:24→16:45)
[2016-08-31] MEDS: NYSTATIN SUSP 500,000 U/5 ML UDC PO SCH ×4 (07:25→21:00)
[2016-08-31] MEDS: DOCUSATE SODIUM 100 MG CAP PO SCH (07:26)
[2016-08-31 07:27] LABS: BASO % 0.2 %; BASO ABS # 0.02 K/uL (0-0.2); EOS % 2.9 %; HEMATOCRIT 27.3 % (42-52); IG% 1.5 %; LYMPH % 11.8 %; LYMPH ABS # 1.16 K/uL (1.2-3.4); MEAN CELL VOLUME 73.8 fL (80-100); MEAN CORPUSCULAR HEMOGLOBIN 23.8 pg (25-34); MEAN CORPUSCULAR HGB CONC 32.2 g/dl (32-36); MEAN PLATELET VOLUME 10.2 fL (7.4-10.4); MONO % 9.4 %; NEUT % 74.2 %; PLATELET COUNT 278 K/uL (130-400)
[2016-08-31] MEDS: BOOST BREEZE NUTRITION DRINK 1 BOX PO SCH ×2 (07:30→16:45)
--- NOTE | 2016-08-31 07:37 | Nephrology Progress Note ---
Nephrology Progress Note Date of Service: Aug 31, 2016. Subjective 81 yo male with esrd who fell and had humerus fracture/rib fractures. pt was confused but appears more alert now. pt with chronic diarrhea and proctitis and on antibiotics and given one dose of immodium yesterday. had dialysis on sunday and sunday. pt feels better. still weak but getting stronger. diarrhea improving. only a couple smears overnight. Objective Date Time Temp Pulse Resp B/P Pulse Ox O2 Delivery O2 Flow Rate FiO2 08/31/16 04:08 36.9 97 20 104/57 99 Nasal Cannula 2.0 08/31/16 04:00 99 Nasal Cannula 2.0 08/31/16 00:00 96 Nasal Cannula 2.0 08/30/16 23:45 36.9 86 18 107/66 96 Nasal Cannula 2.0 08/30/16 20:19 101 18 99 Nasal Cannula 4.0 08/30/16 20:00 96 Nasal Cannula 2.0 08/30/16 20:00 36.6 89 26 128/72 96 Nasal Cannula 08/30/16 18:45 36.8 86 122/66 08/30/16 18:15 88 100/71 08/30/16 18:00 88 130/67 08/30/16 17:45 78 120/63 08/30/16 17:30 63 106/87 08/30/16 17:15 89 139/73 08/30/16 17:00 71 128/86 08/30/16 16:45 87 125/78 08/30/16 16:30 79 123/60 08/30/16 16:15 52 146/71 08/30/16 16:00 68 136/57 08/30/16 15:45 68 127/85 08/30/16 15:30 69 101/58 08/30/16 15:10 76 93/54 08/30/16 15:00 36.6 76 91/53 08/30/16 14:11 78 18 98 Nasal Cannula 2.0 08/30/16 12:00 Nasal Cannula 2.0 08/30/16 12:00 36.7 85 18 97/52 96 08/30/16 08:00 Nasal Cannula 2.0 Physical Exam: General-aaox3 Eyes-no scleral icterus ENT-mmm Neck-supple Lungs-cta Orjia-tie-ykqys Abdomen-bs+ s/nt/nd Extremities- no edema Neuro-nonfocal Current Inpatient Medications Medications (Trade) Dose Ordered Sig/Daniel Route Start Time Stop Time Status Last Admin Dose Admin Atorvastatin Calcium (Lipitor Tab) 20 mg QPM PO 08/17/16 21:00 09/16/16 20:59 08/30/16 20:17 20 MG Calcium Acetate (Phoslo Cap) 1,334 mg TIDM PO 08/18/16 08:30 09/17/16 08:29 08/30/16 19:28 1,334 MG Acetaminophen (Tylenol Tab) 650 mg Q4H PRN PO 08/17/16 16:45 09/16/16 16:44 08/28/16 12:47 650 MG Ondansetron HCl (Zofran Inj) 4 mg Q6H PRN IV 08/17/16 16:45 09/16/16 16:44 08/26/16 18:07 4 MG Albuterol/ Ipratropium (Duoneb) 3 ml Q2H PRN INH 08/17/16 19:45 09/16/16 19:44 08/27/16 17:00 3 ML Heparin Sodium (Porcine) (Heparin Sq 5000 Unit/0.5ml) 5,000 unit Q8 SQ 08/19/16 22:00 09/18/16 21:59 08/31/16 06:05 5,000 UNIT Tramadol HCl 50 mg 50 mg Q4H PRN PO 08/21/16 16:45 09/20/16 16:44 Future Hold 08/22/16 14:10 50 MG Acetaminophen/ Empty Bag (Ofirmev IV/ Empty Iv Bag 100ml) 65 ml @ 260 mls/hr Q6H PRN IV 08/21/16 20:30 09/20/16 20:29 08/31/16 03:17 260 MLS/HR Docusate Sodium (coLACE CAP) 100 mg BID PO 08/22/16 21:00 09/21/16 20:59 08/29/16 21:04 100 MG Enteral Nutritional Formula (Boost Breeze Nutritional Drink) 1 box BIDM PO 08/23/16 17:45 09/22/16 17:44 08/30/16 08:11 1 BOX Albuterol Sulfate (Ventolin 0.083% 2.5MG/3ML Neb) 2.5 mg Q6R INH 08/24/16 09:00 09/23/16 08:59 08/30/16 20:19 2.5 MG Lactulose (Chronulac Syrup) 20 gm Q6H PRN PO 08/25/16 11:30 09/24/16 11:29 08/25/16 14:22 20 GM Nystatin (Mycostatin Susp) 10 ml QID PO 08/27/16 13:00 09/06/16 12:59 08/30/16 20:17 10 ML Lactobacillus Acidophilus (Lactinex Granules Pack) 1 gm TIDM PO 08/28/16 16:45 09/27/16 16:44 08/30/16 19:29 1 GM Piperacillin Sod/ Tazobactam Sod 1 ea 1 ea UD PRN N/A 08/28/16 14:15 09/07/16 14:14 Piperacillin Sod/ Tazobactam Sod/ Dextrose (Zosyn Iv/D5 100ml) 115 ml @ 28.75 mls/ hr Q12H IV 08/29/16 02:00 09/05/16 01:59 08/31/16 02:01 28.75 MLS/HR Last 24 Hours Test 08/31/16 07:06 White Blood Count 9.80 K/uL Red Blood Count 3.70 M/uL Hemoglobin 8.8 g/dL Hematocrit 27.3 % Mean Corpuscular Volume 73.8 fL Mean Corpuscular Hemoglobin 23.8 pg Mean Corpuscular Hemoglobin Concent 32.2 g/dl Platelet Count 278 K/uL Mean Platelet Volume 10.2 fL Neutrophils (%) (Auto) 74.2 % Lymphocytes (%) (Auto) 11.8 % Monocytes (%) (Auto) 9.4 % Eosinophils (%) (Auto) 2.9 % Basophils (%) (Auto) 0.2 % Neutrophils # (Auto) 7.27 K/uL Lymphocytes # (Auto) 1.16 K/uL Monocytes # (Auto) 0.92 K/uL Eosinophils # (Auto) 0.28 K/uL Basophils # (Auto) 0.02 K/uL RDW Standard Deviation 40.8 fL RDW Coefficient of Variation 15.4 % Immature Granulocyte % (Auto) 1.5 % Immature Granulocyte # (Auto) 0.15 K/uL Assessment & Plan ESRD-no dialysis today. tolerated dialysis well yesterday. no fluid removal with lower bp readings. was previously in the 120s/130s prior to hospitilization. plan on dialysis again tomorrow. 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 continue procrit with dialysis. GI-pt with proctitis and chronic diarrhea. diarrhea is improving. will redose one more immodium. defer to hospitalist. appears to be improving.
[2016-08-31] MEDS ORDERED: LOPERAMIDE HCL 2 MG CAP PO SCH (07:45)
[2016-08-31 08:00] LABS: COMPLETE YES; HYPOCHROMIA PRESENT; OVALOCYTES 1+; POLYCHROMASIA 1+
[2016-08-31 08:01] LABS: BUN/CREATININE RATIO 7.2 (10-20); CREATININE 5.2 mg/dl (0.60-1.40); MAGNESIUM 2.3 mg/dl (1.8-2.4); PHOSPHORUS 4.3 mg/dl (2.5-4.9); POTASSIUM 4.1 mmol/L (3.5-5.1)
--- NOTE | 2016-08-31 11:45 | Infectious Disease Progress Nt ---
Progress Note Date of Service Aug 31, 2016. Subjective Pt evaluation today including: conversation w/ patient, physical exam, chart review, lab review * Infectious disease progress note. Attending is Dr. Skaggs. * The patient was seen and examined at bedside. No acute overnight events. One soft stool overnight. Patient is doing well today, more alert than the previous day. According to nurse he was eating cheerios by himself - this represents an improvement from his hospital course baseline. Had dialysis yesterday. Patient denies fevers, chills, chest pain, SOB. Only complaint is continued pain in his left arm. Plan of care was described to the patient and all questions were answered. Attending note: Pt remains on zosyn, tolerating well. afebrile overnight, wbc improved to 9.8. Blood and stool cultures negative, c diff negative. Objective Vital Signs Date Time Temp Pulse Resp B/P Pulse Ox O2 Delivery O2 Flow Rate FiO2 08/31/16 11:27 36.8 88 18 90/67 94 2.0 08/31/16 10:53 36.5 85 12 119/62 Nasal Cannula 08/31/16 08:00 Nasal Cannula 2.0 08/31/16 07:58 36.6 109 20 117/70 98 2.0 08/31/16 07:20 109 18 98 Nasal Cannula 2.0 08/31/16 04:08 36.9 97 20 104/57 99 Nasal Cannula 2.0 08/31/16 04:00 99 Nasal Cannula 2.0 08/31/16 00:00 96 Nasal Cannula 2.0 08/30/16 23:45 36.9 86 18 107/66 96 Nasal Cannula 2.0 08/30/16 20:19 101 18 99 Nasal Cannula 4.0 08/30/16 20:00 96 Nasal Cannula 2.0 08/30/16 20:00 36.6 89 26 128/72 96 Nasal Cannula 08/30/16 18:45 36.8 86 122/66 08/30/16 18:15 88 100/71 08/30/16 18:00 88 130/67 08/30/16 17:45 78 120/63 08/30/16 17:30 63 106/87 08/30/16 17:15 89 139/73 08/30/16 17:00 71 128/86 08/30/16 16:45 87 125/78 08/30/16 16:30 79 123/60 08/30/16 16:15 52 146/71 08/30/16 16:00 68 136/57 08/30/16 15:45 68 127/85 08/30/16 15:30 69 101/58 08/30/16 15:10 76 93/54 08/30/16 15:00 36.6 76 91/53 08/30/16 14:11 78 18 98 Nasal Cannula 2.0 08/30/16 12:00 Nasal Cannula 2.0 08/30/16 12:00 36.7 85 18 97/52 96 Physical Exam General Appearance: WD/WN, no apparent distress, + obese Eyes: normal inspection ENT: normal ENT inspection Respiratory/Chest: chest non-tender, lungs clear, normal breath sounds, no respiratory distress Cardiovascular: regular rate, rhythm, no edema, no gallop, no JVD, no murmur Extremities: + pertinent finding (Left arm in sling. ) Neurologic/Psychiatric: no motor/sensory deficits, alert, normal mood/affect, + pertinent finding (More awake than previous day, was able to hold a conversation, oriented to person and year. Able to assess he was in the hospital in [place], couldn't name Iman Santiago . Stated the President was Yung before correcting himself. ) Skin: + pertinent finding (ecchymosis of the left upper arm. ) Laboratory Results Item Value Date Time Rotavirus Antigen - Final Complete 08/28/16 1610 Stool SPECIMEN NEGATIVE FOR ROTAVIRUS ANTIGEN WBC Smear - Final Resulted 08/28/16 1610 Stool C.difficile Toxin B Gene (PCR) - Final Complete 08/28/16 1015 Stool No C. difficile toxin B gene detected Blood Culture - Preliminary Resulted 08/26/16 1500 Blood NO GROWTH TO DATE. Blood Culture - Preliminary Resulted 08/26/16 1455 Blood NO GROWTH TO DATE. Last 24 Hours Test 08/31/16 07:06 White Blood Count 9.80 K/uL Red Blood Count 3.70 M/uL Hemoglobin 8.8 g/dL Hematocrit 27.3 % Mean Corpuscular Volume 73.8 fL Mean Corpuscular Hemoglobin 23.8 pg Mean Corpuscular Hemoglobin Concent 32.2 g/dl Platelet Count 278 K/uL Mean Platelet Volume 10.2 fL Neutrophils (%) (Auto) 74.2 % Lymphocytes (%) (Auto) 11.8 % Monocytes (%) (Auto) 9.4 % Eosinophils (%) (Auto) 2.9 % Basophils (%) (Auto) 0.2 % Neutrophils # (Auto) 7.27 K/uL Lymphocytes # (Auto) 1.16 K/uL Monocytes # (Auto) 0.92 K/uL Eosinophils # (Auto) 0.28 K/uL Basophils # (Auto) 0.02 K/uL RDW Standard Deviation 40.8 fL RDW Coefficient of Variation 15.4 % Immature Granulocyte % (Auto) 1.5 % Immature Granulocyte # (Auto) 0.15 K/uL Polychromasia 1+ Hypochromasia PRESENT Ovalocytes 1+ Sodium Level 138 mmol/L Potassium Level 4.1 mmol/L Chloride Level 100 mmol/L Carbon Dioxide Level 29 mmol/L Anion Gap 9.0 mmol/L Blood Urea Nitrogen 37 mg/dl Creatinine 5.20 mg/dl Est Creatinine Clear Calc Drug Dose 13.4 ml/min Estimated GFR () 11.0 Estimated GFR (Non- 9.5 BUN/Creatinine Ratio 7.2 Random Glucose 91 mg/dl Calcium Level 8.0 mg/dl Phosphorus Level 4.3 mg/dl Magnesium Level 2.3 mg/dl Assessment and Plan (1) Proctitis Status: Acute 2 more days of Zosyn for Proctitis. I reviewed resident note and agree with above assessment. No new ID recs at this time. continue zosyn as planned. (2) Leukocytosis Status: Resolved 81M on dialysis s/p fall and left humerus fracture. Currently on Zosyn and Levofloxacin. Hospital Day #14. ID consulted for SIRS. Diarrhea (resolved) - Likely from proctatis, continue Zosyn, re-hydrate as needed, Giardia and Norovirus negative, continue to monitor. Lethargy, multifactorial - Pt is improving clinically. May be multifactorial from ESRD, dehydration, proctitis and lack of sleep. Continue ABx, rehydration. Continue to monitor. Resident Involvement: Resident Care Provided Care Provided: [facility]
[2016-08-31] MEDS: ACETAMINOPHEN 325 MG TAB PO PRN (12:57)
--- NOTE | 2016-08-31 16:26 | Progress Note ---
Subjective Date of Service: Aug 31, 2016. Subjective Pt evaluation today including: conversation w/ patient, physical exam, chart review, lab review, conversation w/ property consultant, review of inpatient medication list Problem List Medical Problems: (1) Fracture, humerus, anatomical neck Status: Acute (2) Multiple fractures of ribs, left side, initial encounter for closed fracture Status: Acute Review of Systems Constitutional: + fatigue, + weakness, No chills, No fever, No problem reported , No see HPI, No sweats, No weight loss Eyes: No diplopia, No discharge, No eye pain, No problem reported, No redness, No see HPI, No worsening of vision ENT: No dental problems, No hearing loss, No nasal symptoms, No problem reported, No see HPI, No sore throat, No tinnitus, No trouble swallowing, No unusual epistaxis Respiratory: No cough, No dyspnea at rest, No dyspnea on exertion, No hemoptysis, No problem reported, No see HPI, No shortness of breath, No sputum, No wheezing Cardiac: No PND, No chest pain, No claudication, No edema, No orthopnea, No palpitations, No problem reported, No see HPI Abdomen: No GI bleeding, No constipation, No diarrhea, No nausea, No pain, No problem reported, No see HPI, No vomiting Musculoskeletal: No calf pain, No joint pain, No muscle pain, No problem reported, No see HPI, No swelling Neurologic: No balance problems, No memory loss, No numbness/tingling, No paralysis, No problem reported, No see HPI, No vertigo, No weakness Psychiatric: No anhedonism, No anxiety, No depression symptoms, No insomnia, No problem reported, No see HPI, No substance abuse Heme: No abnormal bleeding/bruising, No clotting problems, No night sweats, No problem reported, No see HPI, No swollen lymph nodes Skin: No bleeding, No color change, No itch, No new/changing skin lesions, No problem reported, No rash, No see HPI Medications Current Inpatient Medications Medications (Trade) Dose Ordered Sig/Daniel Route Start Time Stop Time Status Last Admin Dose Admin Atorvastatin Calcium (Lipitor Tab) 20 mg QPM PO 08/17/16 21:00 09/16/16 20:59 08/30/16 20:17 20 MG Calcium Acetate (Phoslo Cap) 1,334 mg TIDM PO 08/18/16 08:30 3/5/17 08:29 08/31/16 11:20 1,334 MG Acetaminophen (Tylenol Tab) 650 mg Q4H PRN PO 08/17/16 16:45 09/16/16 16:44 08/31/16 12:57 650 MG Ondansetron HCl (Zofran Inj) 4 mg Q6H PRN IV 08/17/16 16:45 09/16/16 16:44 08/26/16 18:07 4 MG Albuterol/ Ipratropium (Duoneb) 3 ml Q2H PRN INH 08/17/16 19:45 09/16/16 19:44 08/27/16 17:00 3 ML Heparin Sodium (Porcine) (Heparin Sq 5000 Unit/0.5ml) 5,000 unit Q8 SQ 08/19/16 22:00 09/18/16 21:59 08/31/16 14:06 5,000 UNIT Tramadol HCl 50 mg 50 mg Q4H PRN PO 08/21/16 16:45 09/20/16 16:44 Future Hold 08/22/16 14:10 50 MG Acetaminophen/ Empty Bag (Ofirmev IV/ Empty Iv Bag 100ml) 65 ml @ 260 mls/hr Q6H PRN IV 08/21/16 20:30 09/20/16 20:29 08/31/16 03:17 260 MLS/HR Enteral Nutritional Formula (Boost Breeze Nutritional Drink) 1 box BIDM PO 08/23/16 17:45 09/22/16 17:44 08/30/16 08:11 1 BOX Albuterol Sulfate (Ventolin 0.083% 2.5MG/3ML Neb) 2.5 mg Q6R INH 08/24/16 09:00 09/23/16 08:59 08/31/16 07:20 2.5 MG Lactulose (Chronulac Syrup) 20 gm Q6H PRN PO 08/25/16 11:30 09/24/16 11:29 08/25/16 14:22 20 GM Nystatin (Mycostatin Susp) 10 ml QID PO 08/27/16 13:00 09/06/16 12:59 08/31/16 11:21 10 ML Lactobacillus Acidophilus (Lactinex Granules Pack) 1 gm TIDM PO 08/28/16 16:45 09/27/16 16:44 08/31/16 11:21 1 GM Piperacillin Sod/ Tazobactam Sod 1 ea 1 ea UD PRN N/A 08/28/16 14:15 09/02/16 13:59 Piperacillin Sod/ Tazobactam Sod/ Dextrose (Zosyn Iv/D5 100ml) 115 ml @ 28.75 mls/ hr Q12H IV 08/29/16 02:00 09/02/16 13:59 08/31/16 12:47 28.75 MLS/HR Objective Vital Signs Date Time Temp Pulse Resp B/P Pulse Ox O2 Delivery O2 Flow Rate FiO2 08/31/16 16:00 Nasal Cannula 2.0 08/31/16 14:59 37.0 79 18 114/61 98 2.0 08/31/16 12:00 Nasal Cannula 2.0 08/31/16 11:27 36.8 88 18 90/67 94 2.0 08/31/16 10:53 36.5 85 12 119/62 Nasal Cannula 08/31/16 08:00 Nasal Cannula 2.0 08/31/16 07:58 36.6 109 20 117/70 98 2.0 08/31/16 07:20 109 18 98 Nasal Cannula 2.0 08/31/16 04:08 36.9 97 20 104/57 99 Nasal Cannula 2.0 08/31/16 04:00 99 Nasal Cannula 2.0 08/31/16 00:00 96 Nasal Cannula 2.0 08/30/16 23:45 36.9 86 18 107/66 96 Nasal Cannula 2.0 08/30/16 20:19 101 18 99 Nasal Cannula 4.0 08/30/16 20:00 96 Nasal Cannula 2.0 08/30/16 20:00 36.6 89 26 128/72 96 Nasal Cannula 08/30/16 18:45 36.8 86 122/66 08/30/16 18:15 88 100/71 08/30/16 18:00 88 130/67 08/30/16 17:45 78 120/63 08/30/16 17:30 63 106/87 08/30/16 17:15 89 139/73 08/30/16 17:00 71 128/86 08/30/16 16:45 87 125/78 08/30/16 16:30 79 123/60 Physical Exam General Appearance: no apparent distress Eyes: normal inspection, EOMI ENT: normal ENT inspection, hearing grossly normal, TMs normal, pharynx normal Neck: supple Respiratory/Chest: chest non-tender, lungs clear, normal breath sounds, no respiratory distress, no accessory muscle use Cardiovascular: regular rate, rhythm, no edema, no gallop, no JVD, no murmur Abdomen: normal bowel sounds, non tender, soft, no organomegaly Extremities: normal range of motion, non-tender, normal inspection, no pedal edema Neurologic/Psychiatric: filtering machine tender helper II-XII nml as tested, no motor/sensory deficits, alert, normal mood/affect, oriented x 3 Skin: normal color, warm/dry, no rash Laboratory Results Last 24 Hours Test 08/31/16 07:06 White Blood Count 9.80 K/uL Red Blood Count 3.70 M/uL Hemoglobin 8.8 g/dL Hematocrit 27.3 % Mean Corpuscular Volume 73.8 fL Mean Corpuscular Hemoglobin 23.8 pg Mean Corpuscular Hemoglobin Concent 32.2 g/dl Platelet Count 278 K/uL Mean Platelet Volume 10.2 fL Neutrophils (%) (Auto) 74.2 % Lymphocytes (%) (Auto) 11.8 % Monocytes (%) (Auto) 9.4 % Eosinophils (%) (Auto) 2.9 % Basophils (%) (Auto) 0.2 % Neutrophils # (Auto) 7.27 K/uL Lymphocytes # (Auto) 1.16 K/uL Monocytes # (Auto) 0.92 K/uL Eosinophils # (Auto) 0.28 K/uL Basophils # (Auto) 0.02 K/uL RDW Standard Deviation 40.8 fL RDW Coefficient of Variation 15.4 % Immature Granulocyte % (Auto) 1.5 % Immature Granulocyte # (Auto) 0.15 K/uL Polychromasia 1+ Hypochromasia PRESENT Ovalocytes 1+ Sodium Level 138 mmol/L Potassium Level 4.1 mmol/L Chloride Level 100 mmol/L Carbon Dioxide Level 29 mmol/L Anion Gap 9.0 mmol/L Blood Urea Nitrogen 37 mg/dl Creatinine 5.20 mg/dl Est Creatinine Clear Calc Drug Dose 13.4 ml/min Estimated GFR () 11.0 Estimated GFR (Non- 9.5 BUN/Creatinine Ratio 7.2 Random Glucose 91 mg/dl Calcium Level 8.0 mg/dl Phosphorus Level 4.3 mg/dl Magnesium Level 2.3 mg/dl Assessment and Plan Septic shock with multiple potential sources of infection, improving -cortisole level was 32 (ruled out adrenal insufficiency ) -Procalcitonin was elevated -leukocytosis improved after starting zosyn -possible pneumonia (although no stigmata of pneumonia clinically) -Initially was on vanco/levofloxacin with no improvement - consult ID was appreciated and levofloxacin was stopped -CT scan abd/pelv showed proctitis - stool studies (Cx, O&P, Giardia, Desiree virus, WBCs, Heme occult) -C-diff / rota virus and shiga toxins/salmonella were negative -blood and urine cultures all negative acute metabolic encephalopathy, improving -initial inciting factors appear to be pain, sepsis, pain meds, hospital stay superimposed on likely somewhat brittle baseline of health RML density, questionable pneumonia S/P 6 days of levofloxacin -ddx is HAP vs aspiration - follow status, aspiration precautions L humerus fx -sling, supportive care rib fractures (multiple, closed) -pain control as possible ESRD -on HD - continue per nephrology Elevate trop, likely secondary to ESRD, Echo showed EF of 35-40% hold coreg and lisinopril CAD, prior CABG -appears overall stable, see above in regards to troponin -continue current meds chronic systolic CHF -appearing compensated - follow closely w volume for hypotension, however ambulatory dysfunction/leg weakness -Continue PT/OT -likely will need rehab dyslipidemia -Continue statin BPH -Continue tamsulosin DVT proph -heparin SQ
[2016-08-31] MEDS: ONDANSETRON INJ 2 MG/ML 2 ML VIAL IV PRN (20:15)
[2016-08-31] MEDS: ATORVASTATIN 20 MG TAB PO SCH (21:00)
[2016-08-31] MEDS ORDERED: NURSING VERBAL MED ORDER ONE (22:15)
[2016-08-31] MEDS: ALBUT/IPRATROP 3MG/0.5MG NEB 3 ML VIAL INH PRN (22:29)
[2016-08-31] MEDS ORDERED: NITROGLYCERIN 0.4 MG SL PER TAB CHARGE SL PRN (22:30)
[2016-08-31] MEDS ORDERED: CALCIUM CARBONATE 500 MG CHEWABLE PO ONE (22:30)
[2016-08-31] MEDS ORDERED: PANTOprazole INJ 40 MG in SYRINGE 0 ML IV ONE ×2 (23:00→23:45)
--- NOTE | 2016-08-31 23:33 | Progress Note ---
Progress Note I was paged at approximately 22:04. Patient was noted to be having symptoms of reflux and indigestion. Nursing notes that the patient looks diaphoretic. She noted that he has vomited a couple times since this afternoon. She expressed concern about possible cardiac etiology. I give the following instructions prior to my arrival: Obtain EKG, obtain full set of vital signs, try treating with single dose of Tums, and if symptoms fail to resolve after 30 minutes, administer nitroglycerin 0.4 mg sublingually. I arrived at the to the bedside to assess the patient: SUBJECTIVE: Patient was asleep. He was awoken briefly, denied any complaints. OBJECTIVE: - Vital signs: BP 155/67, HR 87, respiratory rate 18, 96% on 2L - Gen. inspection: Patient sleeping comfortably, no apparent distress, does not appear diaphoretic - Cardiac: S1 and S2 with no added sounds or murmurs. No JVD. No edema. - Respiratory exam: Bilateral expiratory wheezing, no obvious consolidation. EKG: Sinus rhythm rate 77, 1st-degree AV block, with frequent immature ventricular complexes, right bundle branch block, left anterior fascicular block septal infarct age undetermined inferior infarct age undetermined Prior EKG dated 08/24/2016: Sinus rhythm rate 1st degree AV block, right bundle branch block, left anterior fascicular block Inferior infarct, age undetermined ASSESSMENT/PLAN: Nausea and indigestion unknown cause Patient appears comfortable at this time Given cardiac history repeated an EKG, which did show a septal infarct of undetermined age. There are no acute ST or T-wave changes. With evidence of new infarct as well as evidence of frequent PVCs, I think it's appropriate to check a set of cardiac enzymes and to check his magnesium. - If patient complains of recurrent symptoms administer IV bolus 40 mg Protonix ; if if no improvement in half an hour, administer 0.4 mg sublingual nitroglycerin - Repeat Mg level - Cardiac enzymes 1, then decide whether trending is required 01:05 Notified by nursing that troponin came back at 3.7; magnesium was normal at 2.3 Reviewed most recent troponin, which was 0.35 and 08/27/2016 Patient was sleeping comfortably, denying any pain Repeat vital signs all stable Impression: NSTEMI Plan: - Patient started on heparin drip - Monitor cardiac enzymes every 6 hours or until peak - Cardiology consultation is already ordered on the patient 02:10 Patient reassessed at bedside with the nurse Patient's only complaint at this time is slight back itching Patient denies chest pain, palpitations, shortness of breath, lightheadedness, dizziness Updated vital signs remained normal Plan: Continue heparin drip and cardiac enzyme monitoring No further action at this time unless patient begins complaining of chest pain. I will sign this case at the day team for further management
[2016-09-01] VITALS (26 sets, daily range): BP systolic 89–155; BP diastolic 45–72; PULSE 71–94; TEMP 36.4–37; O2SAT 92–98
[2016-09-01 00:42] LABS: MAGNESIUM 2.3 mg/dl (1.8-2.4)
[2016-09-01] MEDS ORDERED: HEPARIN IV LOW DOSE NO BOLUS SCH (01:45)
[2016-09-01] MEDS: HEPARIN 25,000 UNIT/500ML D5W 500 ML IV PRN ×2 (02:20→21:44)
[2016-09-01] MEDS: PIPERACILL/TAZOBAC IV 3.375 GM in DEXTROSE 5% 100ML IV SCH ×2 (02:42→14:39)
[2016-09-01] MEDS: ALBUTEROL 0.083% NEBU SOLN 3 ML VIAL INH SCH ×4 (02:59→20:18)
[2016-09-01 03:13] LABS: BASO % 0.2 %; BASO ABS # 0.02 K/uL (0-0.2); HEMATOCRIT 26.6 % (42-52); IG% 2.2 %; LYMPH ABS # 1.49 K/uL (1.2-3.4); MEAN CORPUSCULAR HEMOGLOBIN 24.6 pg (25-34); MONO % 4.5 %; NEUT % 75.1 %; PLATELET COUNT 282 K/uL (130-400); WHITE BLOOD COUNT 9.91 K/uL (4.8-10.8)
[2016-09-01 03:17] LABS: MEAN CORPUSCULAR HGB CONC 32.3 g/dl (32-36)
[2016-09-01 03:32] LABS: INR 1.4 (0.9-1.1); PARTIAL THROMBOPLASTIN RATIO 1.3; PROTHROMBIN TIME (PATIENT) 14.7 SECONDS (9.0-12.0)
[2016-09-01 03:38] LABS: ANISOCYTOSIS PRESENT; COMPLETE YES; POLYCHROMASIA 1+
[2016-09-01] MEDS ORDERED: NURSING VERBAL MED ORDER ONE ×2 (04:00→20:30)
[2016-09-01] MEDS: BOOST BREEZE NUTRITION DRINK 1 BOX PO SCH ×2 (07:30→16:45)
[2016-09-01] MEDS: LACTOBACILLUS ACIDOPHILUS 1 GM PACK PO SCH ×3 (07:53→16:45)
[2016-09-01] MEDS: CALCIUM ACETATE 667MG GELCAP PO SCH ×3 (07:54→19:37)
[2016-09-01] MEDS: NYSTATIN SUSP 500,000 U/5 ML UDC PO SCH ×4 (07:54→20:41)
--- NOTE | 2016-09-01 08:09 | Nephrology Progress Note ---
Nephrology Progress Note Date of Service: Sep 01, 2016. Subjective 81 yo male with esrd who fell and had humerus fracture/rib fractures. has had complicated hospital course with significant diarrhea from proctitis which is improving. significant delirium possibly from pain meds which is improving. now last night, developed nausea and vomiting and became confused. ekg was ok but troponin was elevated. started on heparin drip. pt this morning is back to baseline. denies any chest pain. Objective Date Time Temp Pulse Resp B/P Pulse Ox O2 Delivery O2 Flow Rate FiO2 09/01/16 07:48 36.4 71 18 130/67 95 Room Air 09/01/16 04:00 Nasal Cannula 2.0 09/01/16 03:50 36.6 81 18 155/71 98 Nasal Cannula 2.0 09/01/16 02:21 36.4 94 18 114/67 98 Nasal Cannula 2.0 09/01/16 00:20 37.0 72 16 130/72 96 09/01/16 00:00 Nasal Cannula 2.0 08/31/16 22:15 79 18 98 Nasal Cannula 2.0 08/31/16 20:03 36.3 87 18 155/67 96 2.0 08/31/16 20:00 Nasal Cannula 2.0 08/31/16 16:00 Nasal Cannula 2.0 08/31/16 14:59 37.0 79 18 114/61 98 2.0 08/31/16 12:00 Nasal Cannula 2.0 08/31/16 11:27 36.8 88 18 90/67 94 2.0 08/31/16 10:53 36.5 85 12 119/62 Nasal Cannula Physical Exam: General-aaox3 Eyes-no scleral icterus ENT-mmm Neck-supple Lungs-clear Fypua-jblkmtn-zvstg Abdomen-bs+ s/nt/nd Extremities- no edema Neuro-nonfocal Current Inpatient Medications Medications (Trade) Dose Ordered Sig/Daniel Route Start Time Stop Time Status Last Admin Dose Admin Atorvastatin Calcium (Lipitor Tab) 20 mg QPM PO 08/17/16 21:00 09/16/16 20:59 08/30/16 20:17 20 MG Calcium Acetate (Phoslo Cap) 1,334 mg TIDM PO 08/18/16 08:30 09/17/16 08:29 09/01/16 07:54 1,334 MG Acetaminophen (Tylenol Tab) 650 mg Q4H PRN PO 08/17/16 16:45 09/16/16 16:44 08/31/16 12:57 650 MG Ondansetron HCl (Zofran Inj) 4 mg Q6H PRN IV 08/17/16 16:45 09/16/16 16:44 08/31/16 20:15 4 MG Albuterol/ Ipratropium (Duoneb) 3 ml Q2H PRN INH 08/17/16 19:45 09/16/16 19:44 08/31/16 22:29 3 ML Tramadol HCl 50 mg 50 mg Q4H PRN PO 08/21/16 16:45 09/20/16 16:44 Future Hold 08/22/16 14:10 50 MG Acetaminophen/ Empty Bag (Ofirmev IV/ Empty Iv Bag 100ml) 65 ml @ 260 mls/hr Q6H PRN IV 08/21/16 20:30 09/20/16 20:29 08/31/16 03:17 260 MLS/HR Enteral Nutritional Formula (Boost Breeze Nutritional Drink) 1 box BIDM PO 08/23/16 17:45 09/22/16 17:44 08/30/16 08:11 1 BOX Albuterol Sulfate (Ventolin 0.083% 2.5MG/3ML Neb) 2.5 mg Q6R INH 08/24/16 09:00 09/23/16 08:59 09/01/16 07:18 2.5 MG Lactulose (Chronulac Syrup) 20 gm Q6H PRN PO 08/25/16 11:30 09/24/16 11:29 08/25/16 14:22 20 GM Nystatin (Mycostatin Susp) 10 ml QID PO 08/27/16 13:00 09/06/16 12:59 09/01/16 07:54 10 ML Lactobacillus Acidophilus (Lactinex Granules Pack) 1 gm TIDM PO 08/28/16 16:45 09/27/16 16:44 09/01/16 07:53 1 GM Piperacillin Sod/ Tazobactam Sod 1 ea 1 ea UD PRN N/A 08/28/16 14:15 09/02/16 13:59 Piperacillin Sod/ Tazobactam Sod/ Dextrose (Zosyn Iv/D5 100ml) 115 ml @ 28.75 mls/ hr Q12H IV 08/29/16 02:00 09/02/16 13:59 09/01/16 02:42 28.75 MLS/HR Nitroglycerin 0.4 mg 0.4 mg Q5M PRN SL 08/31/16 22:30 09/30/16 22:29 Heparin Sodium/ Dextrose (Heparin 25,000 Unit/500ml D5W) 500 ml @ 20 mls/hr Q24H PRN IV 09/01/16 02:15 10/01/16 02:14 09/01/16 02:20 20 MLS/HR Last 24 Hours Test 09/01/16 00:04 09/01/16 03:05 09/01/16 07:28 09/01/16 07:31 Magnesium Level 2.3 mg/dl Total Creatine Kinase 37 U/L Creatine Kinase MB 2.6 ng/ml Creatine Kinase MB Ratio 7.0 Troponin I 3.720 ng/ml White Blood Count 9.91 K/uL Red Blood Count 3.50 M/uL Hemoglobin 8.6 g/dL Hematocrit 26.6 % Mean Corpuscular Volume 76.0 fL Mean Corpuscular Hemoglobin 24.6 pg Mean Corpuscular Hemoglobin Concent 32.3 g/dl Platelet Count 282 K/uL Mean Platelet Volume 10.0 fL Neutrophils (%) (Auto) 75.1 % Lymphocytes (%) (Auto) 15.0 % Monocytes (%) (Auto) 4.5 % Eosinophils (%) (Auto) 3.0 % Basophils (%) (Auto) 0.2 % Neutrophils # (Auto) 7.43 K/uL Lymphocytes # (Auto) 1.49 K/uL Monocytes # (Auto) 0.45 K/uL Eosinophils # (Auto) 0.30 K/uL Basophils # (Auto) 0.02 K/uL RDW Standard Deviation 42.5 fL RDW Coefficient of Variation 15.6 % Immature Granulocyte % (Auto) 2.2 % Immature Granulocyte # (Auto) 0.22 K/uL Polychromasia 1+ Anisocytosis PRESENT Prothrombin Time 14.7 SECONDS Prothromb Time International Ratio 1.4 Activated Partial Thromboplast Time 33.4 SECONDS Partial Thromboplastin Ratio 1.3 Assessment & Plan ESRD-plan on dialysis today. diarrhea has improved and eating better. will plan on removing one liter as bp tolerates. 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 continue procrit with dialysis.
[2016-09-01 08:38] LABS: ALB/GLOB RATIO 0.5 (0.9-2); BUN/CREATININE RATIO 7.6 (10-20); CALCIUM 8.2 mg/dl (8.5-10.1); CKMB/CK RATIO 8.1 (0-3.0); CREATININE 6.4 mg/dl (0.60-1.40); MAGNESIUM 2.3 mg/dl (1.8-2.4); POTASSIUM 4.1 mmol/L (3.5-5.1)
[2016-09-01 09:02] LABS: PARTIAL THROMBOPLASTIN RATIO 1.3
[2016-09-01] MEDS ORDERED: HEPARIN IV BOLUS 4,500 UNIT in SYRINGE 0 ML IV ONE ×2 (10:15→21:15)
--- NOTE | 2016-09-01 10:22 | Infectious Disease Progress Nt ---
Progress Note Date of Service Sep 01, 2016. Subjective Pt evaluation today including: conversation w/ patient, physical exam, chart review, lab review The patient was seen and examined at bedside, resting comfortably watching TV. Pt states that his prostate and his left arm hurt him. He is having difficulty peeing. In general however he feels better than yesterday. ROS: No fevers, no chills, no chest pain, no SOB. pt seen and examined with resident. oob to chair, much more awake today. states he is constipated. no f/c. no abd pain. all cultures negative, blood cultures negative. stool studies negative tolerating zosyn, all remaining ros reviewed and are negative. Objective Vital Signs Date Time Temp Pulse Resp B/P Pulse Ox O2 Delivery O2 Flow Rate FiO2 09/01/16 08:06 Nasal Cannula 2.0 09/01/16 07:48 36.4 71 18 130/67 95 Room Air 09/01/16 07:16 72 18 98 Nasal Cannula 2.0 09/01/16 04:00 Nasal Cannula 2.0 09/01/16 03:50 36.6 81 18 155/71 98 Nasal Cannula 2.0 09/01/16 02:21 36.4 94 18 114/67 98 Nasal Cannula 2.0 09/01/16 00:20 37.0 72 16 130/72 96 09/01/16 00:00 Nasal Cannula 2.0 08/31/16 22:15 79 18 98 Nasal Cannula 2.0 08/31/16 20:03 36.3 87 18 155/67 96 2.0 08/31/16 20:00 Nasal Cannula 2.0 08/31/16 16:00 Nasal Cannula 2.0 08/31/16 14:59 37.0 79 18 114/61 98 2.0 08/31/16 12:00 Nasal Cannula 2.0 08/31/16 11:27 36.8 88 18 90/67 94 2.0 08/31/16 10:53 36.5 85 12 119/62 Nasal Cannula Physical Exam General Appearance: WD/WN, no apparent distress, + obese Eyes: normal inspection ENT: normal ENT inspection Respiratory/Chest: chest non-tender, lungs clear, normal breath sounds, no respiratory distress, no accessory muscle use Cardiovascular: regular rate, rhythm, no edema, no gallop, no JVD, no murmur Abdomen: normal bowel sounds, non tender, soft, no organomegaly Extremities: + pertinent finding (left arm in sling with ecchymosis over the upper lateral arm s/p humeral fracture, 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 ) Neurologic/Psychiatric: alert, normal mood/affect, oriented x 3 Skin: no rash Laboratory Results Item Value Date Time Rotavirus Antigen - Final Complete 08/28/16 1610 Stool SPECIMEN NEGATIVE FOR ROTAVIRUS ANTIGEN WBC Smear - Final Complete 08/28/16 1610 Stool C.difficile Toxin B Gene (PCR) - Final Complete 08/28/16 1015 Stool No C. difficile toxin B gene detected Blood Culture - Final Complete 08/26/16 1500 Blood NO GROWTH Blood Culture - Final Complete 08/26/16 1455 Blood NO GROWTH Urine Culture - Final Complete 08/26/16 1426 Urine,Catheterized NO GROWTH - LESS THAN 1,000 COLONIES/ML Last 24 Hours Test 09/01/16 00:04 09/01/16 03:05 09/01/16 07:28 09/01/16 08:42 Magnesium Level 2.3 mg/dl 2.3 mg/dl Total Creatine Kinase 37 U/L 31 U/L Creatine Kinase MB 2.6 ng/ml 2.5 ng/ml Creatine Kinase MB Ratio 7.0 8.1 Troponin I 3.720 ng/ml 3.280 ng/ml White Blood Count 9.91 K/uL Red Blood Count 3.50 M/uL Hemoglobin 8.6 g/dL Hematocrit 26.6 % Mean Corpuscular Volume 76.0 fL Mean Corpuscular Hemoglobin 24.6 pg Mean Corpuscular Hemoglobin Concent 32.3 g/dl Platelet Count 282 K/uL Mean Platelet Volume 10.0 fL Neutrophils (%) (Auto) 75.1 % Lymphocytes (%) (Auto) 15.0 % Monocytes (%) (Auto) 4.5 % Eosinophils (%) (Auto) 3.0 % Basophils (%) (Auto) 0.2 % Neutrophils # (Auto) 7.43 K/uL Lymphocytes # (Auto) 1.49 K/uL Monocytes # (Auto) 0.45 K/uL Eosinophils # (Auto) 0.30 K/uL Basophils # (Auto) 0.02 K/uL RDW Standard Deviation 42.5 fL RDW Coefficient of Variation 15.6 % Immature Granulocyte % (Auto) 2.2 % Immature Granulocyte # (Auto) 0.22 K/uL Polychromasia 1+ Anisocytosis PRESENT Prothrombin Time 14.7 SECONDS Prothromb Time International Ratio 1.4 Activated Partial Thromboplast Time 33.4 SECONDS 35.0 SECONDS Partial Thromboplastin Ratio 1.3 1.3 Sodium Level 134 mmol/L Potassium Level 4.1 mmol/L Chloride Level 96 mmol/L Carbon Dioxide Level 22 mmol/L Anion Gap 16.0 mmol/L Blood Urea Nitrogen 48 mg/dl Creatinine 6.40 mg/dl Est Creatinine Clear Calc Drug Dose 11.0 ml/min Estimated GFR () 8.6 Estimated GFR (Non- 7.4 BUN/Creatinine Ratio 7.6 Random Glucose 144 mg/dl Calcium Level 8.2 mg/dl Phosphorus Level 6.0 mg/dl Total Bilirubin 0.4 mg/dl Aspartate Amino Transf (AST/SGOT) 28 U/L Alanine Aminotransferase (ALT/SGPT) 42 U/L Alkaline Phosphatase 91 U/L Total Protein 6.3 gm/dl Albumin 2.2 gm/dl Globulin 4.1 gm/dl Albumin/Globulin Ratio 0.5 Assessment and Plan (1) Proctitis Status: Acute 1 more day of Zosyn for Proctitis. I performed an H&P on this pt and agree with resident's note. continue zosyn, stop after today. No new ID recs. ok for d/c when medically stable. (2) Leukocytosis Status: Resolved continue to monitor Resident Involvement: Resident Care Provided Care Provided: Adult [facility]
[2016-09-01] MEDS: EPOETIN ALFA 10,000 UNITS/ML VIAL IV. SCH ×2 (13:17→18:08)
[2016-09-01] MEDS: ONDANSETRON INJ 2 MG/ML 2 ML VIAL IV PRN (13:18)
[2016-09-01 15:06] LABS: CKMB/CK RATIO 6.8 (0-3.0)
--- NOTE | 2016-09-01 16:30 | Progress Note ---
Subjective Date of Service: Sep 01, 2016. Subjective Pt evaluation today including: conversation w/ patient, conversation w/ family , physical exam, chart review, lab review, review of inpatient medication list Problem List Medical Problems: (1) Fracture, humerus, anatomical neck Status: Acute (2) Multiple fractures of ribs, left side, initial encounter for closed fracture Status: Acute Review of Systems Constitutional: No chills, No fatigue, No fever, No problem reported, No see HPI, No sweats, No weakness, No weight loss Eyes: No diplopia, No discharge, No eye pain, No problem reported, No redness, No see HPI, No worsening of vision ENT: No dental problems, No hearing loss, No nasal symptoms, No problem reported, No see HPI, No sore throat, No tinnitus, No trouble swallowing, No unusual epistaxis Respiratory: No cough, No dyspnea at rest, No dyspnea on exertion, No hemoptysis, No problem reported, No see HPI, No shortness of breath, No sputum, No wheezing Cardiac: No PND, No chest pain, No claudication, No edema, No orthopnea, No palpitations, No problem reported, No see HPI Breast: No breast lump, No breast pain, No change in shape, No nipple discharge , No problem reported, No see HPI Abdomen: No GI bleeding, No constipation, No diarrhea, No nausea, No pain, No problem reported, No see HPI, No vomiting Musculoskeletal: No calf pain, No joint pain, No muscle pain, No problem reported, No see HPI, No swelling Male : No dysuria, No hematuria, No incontinence, No nocturia more than once/ night, No problem reported, No see HPI, No sexual dysfunction, No slowing stream , No urinary frequency Neurologic: No balance problems, No memory loss, No numbness/tingling, No paralysis, No problem reported, No see HPI, No vertigo, No weakness Psychiatric: No anhedonism, No anxiety, No depression symptoms, No insomnia, No problem reported, No see HPI, No substance abuse Heme: No abnormal bleeding/bruising, No clotting problems, No night sweats, No problem reported, No see HPI, No swollen lymph nodes Endo: No excessive thirst, No excessive urination, No fatigue, No problem reported, No see HPI Skin: No bleeding, No color change, No itch, No new/changing skin lesions, No problem reported, No rash, No see HPI Objective Vital Signs Date Time Temp Pulse Resp B/P Pulse Ox O2 Delivery O2 Flow Rate FiO2 09/01/16 16:04 36.4 84 16 123/61 92 Room Air 09/01/16 15:45 80 100/64 09/01/16 15:31 85 103/58 09/01/16 14:28 74 16 97 Room Air 09/01/16 12:05 Room Air 09/01/16 11:17 36.6 75 18 112/64 94 Room Air 09/01/16 08:06 Nasal Cannula 2.0 09/01/16 07:48 36.4 71 18 130/67 95 Room Air 09/01/16 07:16 72 18 98 Nasal Cannula 2.0 09/01/16 04:00 Nasal Cannula 2.0 09/01/16 03:50 36.6 81 18 155/71 98 Nasal Cannula 2.0 09/01/16 02:21 36.4 94 18 114/67 98 Nasal Cannula 2.0 09/01/16 00:20 37.0 72 16 130/72 96 09/01/16 00:00 Nasal Cannula 2.0 08/31/16 22:15 79 18 98 Nasal Cannula 2.0 08/31/16 20:03 36.3 87 18 155/67 96 2.0 08/31/16 20:00 Nasal Cannula 2.0 Physical Exam General Appearance: no apparent distress Eyes: normal inspection, EOMI ENT: normal ENT inspection, hearing grossly normal, TMs normal Neck: supple, no adenopathy, thyroid normal, no JVD Respiratory/Chest: chest non-tender, lungs clear, normal breath sounds, no respiratory distress, no accessory muscle use Cardiovascular: regular rate, rhythm, no edema, no gallop, no JVD, no murmur Abdomen: normal bowel sounds, non tender, soft, no organomegaly, no pulsatile mass Extremities: normal range of motion, non-tender, normal inspection, no pedal edema, no calf tenderness Neurologic/Psychiatric: broom handle dipper II-XII nml as tested, no motor/sensory deficits, alert, normal mood/affect, oriented x 3 Skin: normal color, warm/dry, no rash Laboratory Results Last 24 Hours Test 09/01/16 00:04 09/01/16 03:05 09/01/16 07:28 09/01/16 08:42 Magnesium Level 2.3 mg/dl 2.3 mg/dl Total Creatine Kinase 37 U/L 31 U/L Creatine Kinase MB 2.6 ng/ml 2.5 ng/ml Creatine Kinase MB Ratio 7.0 8.1 Troponin I 3.720 ng/ml 3.280 ng/ml White Blood Count 9.91 K/uL Red Blood Count 3.50 M/uL Hemoglobin 8.6 g/dL Hematocrit 26.6 % Mean Corpuscular Volume 76.0 fL Mean Corpuscular Hemoglobin 24.6 pg Mean Corpuscular Hemoglobin Concent 32.3 g/dl Platelet Count 282 K/uL Mean Platelet Volume 10.0 fL Neutrophils (%) (Auto) 75.1 % Lymphocytes (%) (Auto) 15.0 % Monocytes (%) (Auto) 4.5 % Eosinophils (%) (Auto) 3.0 % Basophils (%) (Auto) 0.2 % Neutrophils # (Auto) 7.43 K/uL Lymphocytes # (Auto) 1.49 K/uL Monocytes # (Auto) 0.45 K/uL Eosinophils # (Auto) 0.30 K/uL Basophils # (Auto) 0.02 K/uL RDW Standard Deviation 42.5 fL RDW Coefficient of Variation 15.6 % Immature Granulocyte % (Auto) 2.2 % Immature Granulocyte # (Auto) 0.22 K/uL Polychromasia 1+ Anisocytosis PRESENT Prothrombin Time 14.7 SECONDS Prothromb Time International Ratio 1.4 Activated Partial Thromboplast Time 33.4 SECONDS 35.0 SECONDS Partial Thromboplastin Ratio 1.3 1.3 Sodium Level 134 mmol/L Potassium Level 4.1 mmol/L Chloride Level 96 mmol/L Carbon Dioxide Level 22 mmol/L Anion Gap 16.0 mmol/L Blood Urea Nitrogen 48 mg/dl Creatinine 6.40 mg/dl Est Creatinine Clear Calc Drug Dose 11.0 ml/min Estimated GFR () 8.6 Estimated GFR (Non- 7.4 BUN/Creatinine Ratio 7.6 Random Glucose 144 mg/dl Calcium Level 8.2 mg/dl Phosphorus Level 6.0 mg/dl Total Bilirubin 0.4 mg/dl Aspartate Amino Transf (AST/SGOT) 28 U/L Alanine Aminotransferase (ALT/SGPT) 42 U/L Alkaline Phosphatase 91 U/L Total Protein 6.3 gm/dl Albumin 2.2 gm/dl Globulin 4.1 gm/dl Albumin/Globulin Ratio 0.5 Test 09/01/16 14:11 Total Creatine Kinase 37 U/L Creatine Kinase MB 2.5 ng/ml Creatine Kinase MB Ratio 6.8 Troponin I 3.010 ng/ml Assessment and Plan Septic shock with multiple potential sources of infection, improving -cortisole level was 32 (ruled out adrenal insufficiency ) -Procalcitonin was elevated -leukocytosis improved after starting zosyn -possible pneumonia (although no stigmata of pneumonia clinically) -Initially was on vanco/levofloxacin with no improvement - consult ID was appreciated and levofloxacin was stopped -CT scan abd/pelv showed proctitis - stool studies (Cx, O&P, Giardia, Desiree virus, WBCs, Heme occult), will add Crypto/cyclo/isosprodium as he is is considered immune compromised -C-diff / rota virus and shiga toxins/salmonella were negative -blood and urine cultures all negative Positive troponin possible demand ischemia 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/currently on heparin drip acute metabolic encephalopathy, improving -initial inciting factors appear to be pain, sepsis, pain meds, hospital stay superimposed on likely somewhat brittle baseline of health RML density, questionable pneumonia S/P 6 days of levofloxacin -ddx is HAP vs aspiration - follow status, aspiration precautions L humerus fx -sling, supportive care rib fractures (multiple, closed) -pain control as possible ESRD -on HD - continue per nephrology Elevate trop, likely secondary to ESRD, Echo showed EF of 35-40% hold coreg and lisinopril CAD, prior CABG -appears overall stable, see above in regards to troponin -continue current meds chronic systolic CHF -appearing compensated - follow closely w volume for hypotension, however ambulatory dysfunction/leg weakness -Continue PT/OT -likely will need rehab dyslipidemia -Continue statin BPH -Continue tamsulosin DVT proph -heparin SQ
--- NOTE | 2016-09-01 17:11 | CARDIOLOGY PROGRESS NOTE ---
DATE: 09/01/2016 HISTORY OF PRESENT ILLNESS: Mr. Poon is a very pleasant 81-year-old white male with history of CAD status post CABG x4 vessels and porcine AVR July 2007, hypertension, hypercholesterolemia, conductive heart disease status post dual chamber pacemaker placement, end-stage renal disease on hemodialysis, recently diagnosed cardiomyopathy (LVEF 35%-40%, possibly pacemaker induced) and a recent fall resulting in left humeral and left-sided rib fractures which led to this hospitalization. The patient is being treated for sepsis with possible pneumonia. His cortisol level was within normal limits, procalcitonin level was elevated, and his leukocytosis began to improve following the initiation of Zosyn. He has also had an acute metabolic encephalopathy which appears to be improving, and may have been somewhat related to pain medications. Nonetheless, the patient has been in the hospital since 08/17/2016 and has made gradual strides in his various disease states. Yesterday, the patient complained of intermittent reflux/indigestion with nausea, vomiting, and diaphoresis. This occurred yesterday afternoon and gradually resolved on its own. He was treated with Tums, but did not receive any sublingual nitroglycerin. Subsequent evaluation of EKG revealed some new Q-waves in leads V1 and V2, bifascicular block, and new septal infarct pattern present compared to prior EKG. Additionally, his baseline troponin I level appears to be elevated, but it did bump from 0.351 ng/mL up to 3.720 ng/mL in the bridge operator hours today. The patient has remained completely asymptomatic since yesterday. He has not had any further "indigestion", reflux symptoms, diaphoresis, nausea, or vomiting. He further denies any chest pain, heaviness, tightness, or pressure. No neck, jaw, back, or arm pain. No shortness of breath, orthopnea or PND. No palpitations, syncope, or near syncope. The patient remains on a heparin drip. He offers no other complaints. PHYSICAL EXAMINATION: VITAL SIGNS: Pulse is 72, respiratory rate is 14 and unlabored, blood pressure is 112/64, SpO2 is 97% on room air, temperature is 36.6 degrees Celsius, GENERAL: The patient is in no acute distress. HEENT: Head is atraumatic, normocephalic. EOMs intact. Sclerae are anicteric. Face is symmetric. No perioral cyanosis. Mucous membranes moist. NECK: Without thyromegaly, adenopathy or JVD. Carotid upstrokes +2 bilaterally without bruits. CHEST AND LUNGS: Clear to auscultation throughout all lung sheppard, no wheezes, rales or rhonchi. CARDIOVASCULAR: S1 and S2 are regular, grade 1/6 basal systolic murmur heard best over the right second intercostal space, accentuated aortic valve closure sound. No diastolic murmurs. No gallops or rubs. Occasional ectopy noted. ABDOMEN: Bowel sounds present. No masses, organomegaly or tenderness. EXTREMITIES: Without clubbing or cyanosis. NEUROLOGIC: The patient is awake, alert, and interactive. He is not confused. Answers questions appropriately. Speech is clear. Normal movement of bilateral upper extremities. Follows commands. LABORATORY DATA: Sodium is 134 mmol/L, potassium 4.1 mmol/L, BUN 48 mg/dL, creatinine 6.40 mg/dL, random glucose 144 mg/dL. Serum magnesium level 2.3. LFTs are unremarkable. Total CK 37, 31, and 37 units per liter with respective CK-MBs of 2.5, 2.5 and 2.6. Troponin I levels over the past 24 hours are 3.010, 3.280, and 3.720 ng/mL. Telemetry monitoring reveals predominantly sinus rhythm with occasional PVCs, rare ventricular bigeminy. White blood cell count is 9.91. Hemoglobin 8.6 g/dl, hematocrit 26.6%, platelet count is 282,000. ASSESSMENT: 1. Episode of "indigestion" with associated nausea, vomiting, and diaphoresis lasting for several hours yesterday, now resolved. This likely represents non-ST segment myocardial infarction. 2. No recurrent symptoms since that time, heart rate and blood pressure have been stable. 3. Coronary artery disease status post coronary artery bypass graft x4 vessels 2007. 4. History of bioprosthetic aortic valve replacement in 2007. 5. Sepsis. 6. Possible right middle lobe pneumonia on broad spectrum antibiotics. 7. Cardiomyopathy with an left ventricular ejection fraction of 35%-40%, possibly pacemaker induced. 8. History of dual chamber pacemaker. 9. Hypertension. 10. Hypercholesterolemia. 11. End-stage renal disease, on hemodialysis. 12. Left humeral fracture. 13. Left-sided rib fractures. 14. Metabolic encephalopathy, improving. PLAN: 1. The patient is hemodynamically stable at the present time, and has not had any further angina pectoris or anginal equivalent symptoms. 2. Agree with heparin drip for an additional 24 hours, and then stop that and reevaluate for any recurrent symptoms. 3. Recommend starting a low dose beta charan with hold parameters based on heart rate and blood pressure. 4. When blood pressure allows, we would recommend starting Entresto one tablet daily. 5. Continue Lipitor 20 mg daily. 6. Continue to closely monitor daily I&O's, body weights. 7. Do not anticipate further invasive cardiological workup at this time due to his multiple comorbidities and intercurrent illnesses. Recommend medical management for the time being. CLEMENTED
[2016-09-01 19:38] LABS: PARTIAL THROMBOPLASTIN RATIO 1.4
[2016-09-01 20:11] LABS: ALB/GLOB RATIO 0.5 (0.9-2); BUN/CREATININE RATIO 6.4 (10-20); CALCIUM 7.7 mg/dl (8.5-10.1); CKMB/CK RATIO 8.3 (0-3.0); CREATININE 3.7 mg/dl (0.60-1.40); POTASSIUM 3.6 mmol/L (3.5-5.1)
[2016-09-01] MEDS: ATORVASTATIN 20 MG TAB PO SCH (20:40)
[2016-09-01] MEDS: METOPROLOL TARTRATE 25 MG TAB PO SCH (20:41)
[2016-09-02] VITALS (10 sets, daily range): BP systolic 107–143; BP diastolic 57–73; PULSE 68–96; TEMP 36.3–36.8; O2SAT 92–97
[2016-09-02] MEDS: ALBUTEROL 0.083% NEBU SOLN 3 ML VIAL INH SCH ×4 (01:38→19:27)
[2016-09-02] MEDS ORDERED: NURSING VERBAL MED ORDER ONE ×2 (04:00→15:30)
[2016-09-02] MEDS: HEPARIN 25,000 UNIT/500ML D5W 500 ML IV PRN (04:15)
[2016-09-02] MEDS: BOOST BREEZE NUTRITION DRINK 1 BOX PO SCH ×2 (07:30→15:37)
[2016-09-02] MEDS: LACTOBACILLUS ACIDOPHILUS 1 GM PACK PO SCH ×3 (07:33→16:45)
[2016-09-02] MEDS: NYSTATIN SUSP 500,000 U/5 ML UDC PO SCH ×4 (07:35→21:05)
[2016-09-02] MEDS: METOPROLOL TARTRATE 25 MG TAB PO SCH ×2 (07:35→21:04)
[2016-09-02] MEDS: CALCIUM ACETATE 667MG GELCAP PO SCH ×3 (07:35→16:45)
[2016-09-02] MEDS: ACETAMINOPHEN 325 MG TAB PO PRN (07:35)
[2016-09-02 07:38] LABS: HEMATOCRIT 26.3 % (42-52); MEAN CELL VOLUME 76.2 fL (80-100); MEAN CORPUSCULAR HEMOGLOBIN 24.3 pg (25-34); MEAN CORPUSCULAR HGB CONC 31.9 g/dl (32-36); MEAN PLATELET VOLUME 9.7 fL (7.4-10.4); PLATELET COUNT 291 K/uL (130-400); RED BLOOD COUNT 3.45 M/uL (4.7-6.1); WHITE BLOOD COUNT 10.18 K/uL (4.8-10.8)
[2016-09-02 07:59] LABS: PARTIAL THROMBOPLASTIN RATIO 1.9
[2016-09-02 08:17] LABS: MAGNESIUM 2.2 mg/dl (1.8-2.4)
--- NOTE | 2016-09-02 12:07 | CARDIOLOGY PROGRESS NOTE ---
DATE: 09/02/2016 DATE: 09/02/2016. TIME: 11:26 a.m. SUBJECTIVE: On 08/31/2016 at 2200 he had some chest discomfort which he described as reflux or indigestion. He apparently appeared diaphoretic. Symptoms resolved spontaneously. Troponin levels were checked and increased peaking at 3.72. They have since trended downward. He has not had any further chest pain. He denies shortness of breath, syncope, near syncope, or palpitations. He describes the room is spinning/dizziness when he stands up turning to the right. He states if he goes to the left he feels much better. He is currently sitting at the bedside in a chair. OBJECTIVE: VITAL SIGNS: Temperature 36.7 degrees, heart rate 87 beats per minute, respiration rate 16, blood pressure 143/73 mmHg. Last evening however he was hypotensive with systolic blood pressure 89/49. Oxygen saturation 92% on room air, weight 111.7 kg. GENERAL: No acute distress. He is alert. NECK: No appreciable JVD. CARDIAC EXAMINATION: No ventricular heave. Regular, normal S1, S2. 1/6 early peaking systolic ejection murmur best heard at the right upper sternal border. LUNGS: Clear to auscultation bilaterally without wheezes, rales or rhonchi. ABDOMEN: Soft, nontender, nondistended. Normoactive bowel sounds. EXTREMITIES: No cyanosis or edema. PSYCHIATRIC: Affect appears appropriate. MEDICATIONS: Include atorvastatin 20 mg daily, heparin drip per protocol, metoprolol tartrate 25 mg p.o. b.i.d. LABORATORY DATA: Sodium 139, potassium 3.6, BUN 24, creatinine 3.7, albumin 2.1, AST 25, ALT 40. Hemoglobin 8.4. PTT 49. ECG personally reviewed from 08/31/2016 at 2103 sinus rhythm with first degree AV block. PVCs. Septal infarct. Inferior infarct. Right bundle branch block. Left anterior fascicular block. ASSESSMENT AND PLAN: 1. Acute non-ST elevation myocardial infarction: He did have chest discomfort suspicious for angina. He had elevated troponins. Would continue heparin for a total of 48 hours and therefore that could be discontinued tonight. Would recommend aspirin 81 mg daily if no contraindications (see GI bleed history below). Beta charan has been initiated. Would consider changing metoprolol tartrate to metoprolol succinate as long as he tolerates the medication in the future. This can be titrated over time. Not on FREDY inhibitor due to renal failure. 2. Coronary artery disease status post coronary artery bypass graft: He does have documented coronary disease. If no contraindications would recommend aspirin 81 mg daily (see below). Consider high intensity statin therapy in place of 20 mg of Lipitor. Beta charan therapy has been initiated. He was transiently hypotensive overnight. This can be titrated if tolerated. Would recommend metoprolol succinate in place of metoprolol tartrate due to cardiomyopathy. 3. Cardiomyopathy: Moderate global hypokinesis reported. Etiology uncertain. Ischemic heart disease could be playing a role given his history. Metoprolol tartrate can be changed to metoprolol succinate upon discharge or once any titration is completed. Not on FREDY inhibitor or Entresto due to renal failure. He appears euvolemic. Volume status managed by dialysis as he does not make much urine. 4. History of gastrointestinal bleed: Will not start aspirin given history of profound GI bleed. He reportedly will not accept blood products due to being a [employer]. According to old records, which were reviewed at this time, his hemoglobin was less than 6 in 2012 with acute GI bleeding. Therefore, we will hold off on aspirin so as not to precipitate worsening bleeding. Monitor closely while on heparin. There does not appear to be any recent reported GI bleeding. 5. Bioprosthetic aortic valve replacement: Antiplatelet therapy would be indicated if no contraindications; however appears he had life-threatening GI bleed in the past. 6. Hypertension: Blood pressure has been acceptable and was mildly hypotensive last evening. No changes made at this time. 7. Dyslipidemia: Consider high intensity statin therapy. He has chronically been on Lipitor 20. 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 8. Disposition: Please call for any further questions or concerns. Heparin can be discontinued later tonight. CLEMENTED
[2016-09-02] MEDS ORDERED: MECLIZINE HCL 12.5 MG TAB PO ONE (16:00)
--- NOTE | 2016-09-02 18:30 | Progress Note ---
Subjective Date of Service: Sep 02, 2016. Subjective Pt evaluation today including: conversation w/ patient, physical exam, chart review, lab review, review of inpatient medication list Problem List Medical Problems: (1) Fracture, humerus, anatomical neck Status: Acute (2) Multiple fractures of ribs, left side, initial encounter for closed fracture Status: Acute Review of Systems Constitutional: No chills, No fatigue, No fever, No problem reported, No see HPI, No sweats, No weakness, No weight loss Eyes: No diplopia, No discharge, No eye pain, No problem reported, No redness, No see HPI, No worsening of vision ENT: No dental problems, No hearing loss, No nasal symptoms, No problem reported, No see HPI, No sore throat, No tinnitus, No trouble swallowing, No unusual epistaxis Respiratory: No cough, No dyspnea at rest, No dyspnea on exertion, No hemoptysis, No problem reported, No see HPI, No shortness of breath, No sputum, No wheezing Cardiac: No PND, No chest pain, No claudication, No edema, No orthopnea, No palpitations, No problem reported, No see HPI Breast: No breast lump, No breast pain, No change in shape, No nipple discharge , No problem reported, No see HPI Abdomen: No GI bleeding, No constipation, No diarrhea, No nausea, No pain, No problem reported, No see HPI, No vomiting Musculoskeletal: + joint pain (left hand), No calf pain, No muscle pain, No problem reported, No see HPI, No swelling Male : No dysuria, No hematuria, No incontinence, No nocturia more than once/ night, No problem reported, No see HPI, No sexual dysfunction, No slowing stream , No urinary frequency Neurologic: No balance problems, No memory loss, No numbness/tingling, No paralysis, No problem reported, No see HPI, No vertigo, No weakness Psychiatric: No anhedonism, No anxiety, No depression symptoms, No insomnia, No problem reported, No see HPI, No substance abuse Heme: No abnormal bleeding/bruising, No clotting problems, No night sweats, No problem reported, No see HPI, No swollen lymph nodes Endo: No excessive thirst, No excessive urination, No fatigue, No problem reported, No see HPI Skin: No bleeding, No color change, No itch, No new/changing skin lesions, No problem reported, No rash, No see HPI Objective Vital Signs Date Time Temp Pulse Resp B/P Pulse Ox O2 Delivery O2 Flow Rate FiO2 09/02/16 16:02 Room Air 09/02/16 15:10 36.7 84 19 138/71 97 Room Air 09/02/16 14:10 68 14 96 Room Air 09/02/16 12:03 Room Air 09/02/16 11:13 36.3 69 16 107/61 97 Room Air 09/02/16 08:06 Room Air 09/02/16 07:50 36.7 87 16 143/73 92 Room Air 09/02/16 07:13 86 14 94 Room Air 09/02/16 04:00 96 Nasal Cannula 2.0 09/02/16 04:00 36.5 83 18 109/57 96 Room Air 09/02/16 01:39 83 14 96 Room Air 09/02/16 00:00 36.5 96 20 120/71 96 09/02/16 00:00 96 Nasal Cannula 2.0 09/01/16 20:18 86 16 93 Room Air 09/01/16 20:00 93 Nasal Cannula 2.0 09/01/16 19:35 36.5 86 16 105/50 95 Room Air 09/01/16 18:55 36.5 86 105/50 09/01/16 18:31 77 89/49 Physical Exam General Appearance: WD/WN, no apparent distress Eyes: normal inspection, EOMI ENT: normal ENT inspection Neck: supple Respiratory/Chest: chest non-tender, lungs clear, normal breath sounds, no respiratory distress, no accessory muscle use Cardiovascular: regular rate, rhythm, no edema, no gallop, + systolic murmur Abdomen: normal bowel sounds, non tender, soft, no organomegaly, no pulsatile mass Extremities: normal range of motion, + pertinent finding (tender left hand) Neurologic/Psychiatric: 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 tested, no motor/sensory deficits, alert, normal mood/affect, oriented x 3 Skin: normal color, warm/dry, no rash Laboratory Results Last 24 Hours Test 09/01/16 19:20 09/01/16 23:50 09/02/16 02:56 09/02/16 07:10 Activated Partial Thromboplast Time 37.0 SECONDS 51.6 SECONDS 49.5 SECONDS Partial Thromboplastin Ratio 1.4 2.0 1.9 Sodium Level 139 mmol/L Potassium Level 3.6 mmol/L Chloride Level 101 mmol/L Carbon Dioxide Level 25 mmol/L Anion Gap 13.0 mmol/L Blood Urea Nitrogen 24 mg/dl Creatinine 3.70 mg/dl Est Creatinine Clear Calc Drug Dose 19.0 ml/min Estimated GFR () 16.6 Estimated GFR (Non- 14.3 BUN/Creatinine Ratio 6.4 Random Glucose 106 mg/dl Calcium Level 7.7 mg/dl Total Bilirubin 0.4 mg/dl Aspartate Amino Transf (AST/SGOT) 25 U/L Alanine Aminotransferase (ALT/SGPT) 40 U/L Alkaline Phosphatase 90 U/L Total Creatine Kinase 29 U/L 33 U/L Creatine Kinase MB 2.4 ng/ml 2.3 ng/ml Creatine Kinase MB Ratio 8.3 7.0 Troponin I 2.800 ng/ml 2.760 ng/ml Total Protein 6.1 gm/dl Albumin 2.1 gm/dl Globulin 4.0 gm/dl Albumin/Globulin Ratio 0.5 White Blood Count 10.18 K/uL Red Blood Count 3.45 M/uL Hemoglobin 8.4 g/dL Hematocrit 26.3 % Mean Corpuscular Volume 76.2 fL Mean Corpuscular Hemoglobin 24.3 pg Mean Corpuscular Hemoglobin Concent 31.9 g/dl RDW Standard Deviation 42.9 fL RDW Coefficient of Variation 16.0 % Platelet Count 291 K/uL Mean Platelet Volume 9.7 fL Phosphorus Level 4.0 mg/dl Magnesium Level 2.2 mg/dl Assessment and Plan Septic shock likely secondary to proctitis/colitis, improving -cortisole level was 32 (ruled out adrenal insufficiency ) -Procalcitonin was elevated -leukocytosis improved after starting zosyn -possible pneumonia (although no stigmata of pneumonia clinically) -Initially was on vanco/levofloxacin with no improvement - consult ID was appreciated and levofloxacin was stopped -CT scan abd/pelv showed proctitis - stool studies (Cx, O&P, Giardia, Desiree virus, WBCs, Heme occult, Crypto/cyclo/ isosprodium as he is is considered immune compromised ) -C-diff / rota virus and shiga toxins/salmonella were negative -blood and urine cultures all negative Positive troponin possible demand ischemia / NSTEMI no chest pain psychiatric secretary consulted/currently on heparin ip as per psychiatric secretary DC heparin drip tonight start ASA in am acute metabolic encephalopathy, improving -initial inciting factors appear to be pain, sepsis, pain meds, hospital stay superimposed on likely somewhat brittle baseline of health RML density, questionable pneumonia S/P 6 days of levofloxacin -ddx is HAP vs aspiration - follow status, aspiration precautions L humerus fx -sling, supportive care L hand pain xray rib fractures (multiple, closed) -pain control as possible ESRD -on HD - continue per nephrology Elevate trop, likely secondary to ESRD, Echo showed EF of 35-40% hold coreg and lisinopril CAD, prior CABG -appears overall stable, see above in regards to troponin -continue current meds chronic systolic CHF -appearing compensated - follow closely w volume for hypotension, however ambulatory dysfunction/leg weakness -Continue PT/OT -likely will need rehab dyslipidemia -Continue statin BPH -Continue tamsulosin DVT proph -heparin SQ
--- NOTE | 2016-09-02 19:25 | DIAGNOSTIC IMAGING REPORT ---
Left hand 3 views CLINICAL HISTORY: Left hand pain after trauma. COMPARISON STUDY: Left forearm 06/26/2013. FINDINGS: Old, healed distal radius and ulnar fractures. The bones are osteopenic. No acute fracture or dislocation within the left hand. Severe osteoarthritis at the DIP, PIP, and first carpometacarpal joints area IMPRESSION: 1. No acute fracture or dislocation within the left hand. 2. Severe osteoarthritis. Electronically signed by: Osvaldo Cuevas M.D. 09/02/2016 7:24 PM Dictated Date/Time: 09/02/2016 7:22 PM
[2016-09-02] MEDS: ATORVASTATIN 20 MG TAB PO SCH (21:04)
[2016-09-03] VITALS (11 sets, daily range): BP systolic 118–151; BP diastolic 61–73; PULSE 68–99; TEMP 36.7–36.9; O2SAT 91–98
[2016-09-03] MEDS: ALBUTEROL 0.083% NEBU SOLN 3 ML VIAL INH SCH ×4 (01:57→19:26)
[2016-09-03] MEDS: ACETAMINOPHEN 325 MG TAB PO PRN (04:07)
[2016-09-03 07:13] LABS: BASO % 0.1 %; BASO ABS # 0.01 K/uL (0-0.2); HEMATOCRIT 26.5 % (42-52); IG% 1.8 %; LYMPH % 15.7 %; LYMPH ABS # 1.38 K/uL (1.2-3.4); MEAN CELL VOLUME 74.6 fL (80-100); MEAN CORPUSCULAR HEMOGLOBIN 23.9 pg (25-34); MEAN CORPUSCULAR HGB CONC 32.1 g/dl (32-36); MEAN PLATELET VOLUME 8.9 fL (7.4-10.4); MONO % 9.1 %; NEUT % 70.3 %; PLATELET COUNT 301 K/uL (130-400); RED BLOOD COUNT 3.55 M/uL (4.7-6.1); WHITE BLOOD COUNT 8.81 K/uL (4.8-10.8)
[2016-09-03 07:22] LABS: PARTIAL THROMBOPLASTIN RATIO 1.2
[2016-09-03] MEDS: BOOST BREEZE NUTRITION DRINK 1 BOX PO SCH ×2 (07:30→17:00)
[2016-09-03 07:51] LABS: ANISOCYTOSIS PRESENT; COMPLETE YES; OVALOCYTES 1+
[2016-09-03] MEDS: METOPROLOL TARTRATE 25 MG TAB PO SCH ×2 (08:29→21:02)
[2016-09-03] MEDS: CALCIUM ACETATE 667MG GELCAP PO SCH ×3 (08:29→17:32)
[2016-09-03] MEDS: NYSTATIN SUSP 500,000 U/5 ML UDC PO SCH ×4 (08:29→21:02)
[2016-09-03 08:30] LABS: ALB/GLOB RATIO 0.5 (0.9-2); CALCIUM 8.4 mg/dl (8.5-10.1); CREATININE 6.2 mg/dl (0.60-1.40); MAGNESIUM 2.1 mg/dl (1.8-2.4); PHOSPHORUS 4.9 mg/dl (2.5-4.9)
[2016-09-03] MEDS: LACTOBACILLUS ACIDOPHILUS 1 GM PACK PO SCH ×3 (08:30→17:32)
[2016-09-03] MEDS: HEPARIN SOD 5000 UNIT/0.5 ML CARP SQ SCH ×3 (08:31→23:05)
[2016-09-03] MEDS ORDERED: ASPIRIN 81 MG ECTAB PO SCH (09:00)
[2016-09-03 09:13] LABS: FERRITIN 1915.4 ng/ml (8.0-388.0)
[2016-09-03 09:22] LABS: BUN/CREATININE RATIO 5.9 (10-20)
[2016-09-03] MEDS: ACETAMINOPHEN IV 650 MG in EMPTY BAG 0 ML IV PRN ×2 (11:56→21:57)
--- NOTE | 2016-09-03 13:48 | Progress Note ---
Subjective Date of Service: Sep 03, 2016. Subjective Pt evaluation today including: conversation w/ patient, physical exam, chart review, lab review, review of inpatient medication list Problem List Medical Problems: (1) Fracture, humerus, anatomical neck Status: Acute (2) Multiple fractures of ribs, left side, initial encounter for closed fracture Status: Acute Review of Systems Constitutional: No chills, No fatigue, No fever, No problem reported, No see HPI, No sweats, No weakness, No weight loss Eyes: No diplopia, No discharge, No eye pain, No problem reported, No redness, No see HPI, No worsening of vision ENT: No dental problems, No hearing loss, No nasal symptoms, No problem reported, No see HPI, No sore throat, No tinnitus, No trouble swallowing, No unusual epistaxis Respiratory: No cough, No dyspnea at rest, No dyspnea on exertion, No hemoptysis, No problem reported, No see HPI, No shortness of breath, No sputum, No wheezing Cardiac: No PND, No chest pain, No claudication, No edema, No orthopnea, No palpitations, No problem reported, No see HPI Abdomen: No GI bleeding, No constipation, No diarrhea, No nausea, No pain, No problem reported, No see HPI, No vomiting Musculoskeletal: + joint pain Neurologic: No balance problems, No memory loss, No numbness/tingling, No paralysis, No problem reported, No see HPI, No vertigo, No weakness Psychiatric: No anhedonism, No anxiety, No depression symptoms, No insomnia, No problem reported, No see HPI, No substance abuse Heme: No abnormal bleeding/bruising, No clotting problems, No night sweats, No problem reported, No see HPI, No swollen lymph nodes Endo: No excessive thirst, No excessive urination, No fatigue, No problem reported, No see HPI Skin: No bleeding, No color change, No itch, No new/changing skin lesions, No problem reported, No rash, No see HPI Medications Current Inpatient Medications Medications (Trade) Dose Ordered Sig/Daniel Route Start Time Stop Time Status Last Admin Dose Admin Atorvastatin Calcium (Lipitor Tab) 20 mg QPM PO 08/17/16 21:00 09/16/16 20:59 09/02/16 21:04 20 MG Calcium Acetate (Phoslo Cap) 1,334 mg TIDM PO 08/18/16 08:30 3/17 08:29 09/03/16 11:37 1,334 MG Acetaminophen (Tylenol Tab) 650 mg Q4H PRN PO 08/17/16 16:45 09/16/16 16:44 09/03/16 04:07 650 MG Ondansetron HCl (Zofran Inj) 4 mg Q6H PRN IV 08/17/16 16:45 09/16/16 16:44 09/01/16 13:18 4 MG Albuterol/ Ipratropium (Duoneb) 3 ml Q2H PRN INH 08/17/16 19:45 09/16/16 19:44 08/31/16 22:29 3 ML Tramadol HCl 50 mg 50 mg Q4H PRN PO 08/21/16 16:45 09/20/16 16:44 Future Hold 08/22/16 14:10 50 MG Acetaminophen/ Empty Bag (Ofirmev IV/ Empty Iv Bag 100ml) 65 ml @ 260 mls/hr Q6H PRN IV 08/21/16 20:30 09/20/16 20:29 09/03/16 11:56 260 MLS/HR Enteral Nutritional Formula (Boost Breeze Nutritional Drink) 1 box BIDM PO 08/23/16 17:45 09/22/16 17:44 08/30/16 08:11 1 BOX Albuterol Sulfate (Ventolin 0.083% 2.5MG/3ML Neb) 2.5 mg Q6R INH 08/24/16 09:00 09/23/16 08:59 09/03/16 06:58 2.5 MG Lactulose (Chronulac Syrup) 20 gm Q6H PRN PO 08/25/16 11:30 09/24/16 11:29 08/25/16 14:22 20 GM Nystatin (Mycostatin Susp) 10 ml QID PO 08/27/16 13:00 09/06/16 12:59 09/03/16 13:11 10 ML Lactobacillus Acidophilus (Lactinex Granules Pack) 1 gm TIDM PO 08/28/16 16:45 09/27/16 16:44 09/03/16 11:37 1 GM Nitroglycerin (Nitrostat Tab) 0.4 mg Q5M PRN SL 08/31/16 22:30 09/30/16 22:29 Metoprolol Tartrate (Lopressor Tab) 25 mg BID PO 09/01/16 21:00 10/01/16 20:59 09/03/16 08:29 25 MG Heparin Sodium (Porcine) (Heparin Sq 5000 Unit/0.5ml) 5,000 unit Q8 SQ 09/03/16 08:00 10/03/16 07:59 09/03/16 08:31 5,000 UNIT Aspirin (Ecotrin Tab) 81 mg QAM PO 09/03/16 09:00 10/03/16 08:59 Objective Vital Signs Date Time Temp Pulse Resp B/P Pulse Ox O2 Delivery O2 Flow Rate FiO2 09/03/16 12:00 Room Air 09/03/16 11:13 36.7 79 16 119/61 93 Room Air 09/03/16 08:00 Room Air 09/03/16 07:36 36.8 78 16 135/72 98 Room Air 09/03/16 06:58 77 16 95 Room Air 09/03/16 04:00 Room Air 09/03/16 03:32 36.8 82 18 118/65 97 Room Air 09/03/16 01:57 68 16 91 Room Air 09/03/16 00:00 36.9 89 20 126/70 97 Room Air 09/03/16 00:00 Room Air 09/02/16 20:00 Room Air 09/02/16 19:27 84 14 95 Room Air 09/02/16 19:11 36.8 83 19 127/66 97 Room Air 09/02/16 16:02 Room Air 09/02/16 15:10 36.7 84 19 138/71 97 Room Air 09/02/16 14:10 68 14 96 Room Air Physical Exam General Appearance: WD/WN, no apparent distress Eyes: normal inspection, EOMI ENT: normal ENT inspection, hearing grossly normal Neck: supple Respiratory/Chest: chest non-tender, lungs clear, normal breath sounds, no respiratory distress, no accessory muscle use Cardiovascular: regular rate, rhythm, no edema, no gallop, no JVD, no murmur Abdomen: normal bowel sounds, non tender, soft, no organomegaly, no pulsatile mass Extremities: normal range of motion, non-tender, normal inspection, no pedal edema, no calf tenderness Neurologic/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: 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 as tested, no motor/sensory deficits, alert, normal mood/affect, oriented x 3 Skin: normal color, warm/dry, no rash Laboratory Results Last 24 Hours Test 09/03/16 06:50 09/03/16 06:58 09/03/16 08:26 White Blood Count 8.81 K/uL Red Blood Count 3.55 M/uL Hemoglobin 8.5 g/dL Hematocrit 26.5 % Mean Corpuscular Volume 74.6 fL Mean Corpuscular Hemoglobin 23.9 pg Mean Corpuscular Hemoglobin Concent 32.1 g/dl Platelet Count 301 K/uL Mean Platelet Volume 8.9 fL Neutrophils (%) (Auto) 70.3 % Lymphocytes (%) (Auto) 15.7 % Monocytes (%) (Auto) 9.1 % Eosinophils (%) (Auto) 3.0 % Basophils (%) (Auto) 0.1 % Neutrophils # (Auto) 6.20 K/uL Lymphocytes # (Auto) 1.38 K/uL Monocytes # (Auto) 0.80 K/uL Eosinophils # (Auto) 0.26 K/uL Basophils # (Auto) 0.01 K/uL RDW Standard Deviation 40.9 fL RDW Coefficient of Variation 15.6 % Immature Granulocyte % (Auto) 1.8 % Immature Granulocyte # (Auto) 0.16 K/uL Anisocytosis PRESENT Ovalocytes 1+ Activated Partial Thromboplast Time 30.5 SECONDS Partial Thromboplastin Ratio 1.2 Sodium Level 136 mmol/L Potassium Level 4.0 mmol/L Chloride Level 99 mmol/L Carbon Dioxide Level 24 mmol/L Anion Gap 13.0 mmol/L Blood Urea Nitrogen 37 mg/dl Creatinine 6.20 mg/dl Est Creatinine Clear Calc Drug Dose 11.3 ml/min Estimated GFR () 8.9 Estimated GFR (Non- 7.7 BUN/Creatinine Ratio 5.9 Random Glucose 88 mg/dl Calcium Level 8.4 mg/dl Phosphorus Level 4.9 mg/dl Magnesium Level 2.1 mg/dl Total Bilirubin 0.4 mg/dl Aspartate Amino Transf (AST/SGOT) 21 U/L Alanine Aminotransferase (ALT/SGPT) 35 U/L Alkaline Phosphatase 91 U/L Total Creatine Kinase 35 U/L Troponin I 2.060 ng/ml Total Protein 6.3 gm/dl Albumin 2.2 gm/dl Globulin 4.1 gm/dl Albumin/Globulin Ratio 0.5 Absolute Reticulocyte Count 0.08 10^6/uL Percent Reticulocyte Count 2.3 % Iron Level 22 mcg/dl Total Iron Binding Capacity 104 mcg/dl Transferrin 85 mg/dl Transferrin % Saturation 19 % Ferritin 1915.4 ng/ml Vitamin B12 Level 697 pg/mL Folate 5.58 ng/mL Assessment and Plan Septic shock likely secondary to proctitis/colitis, improving -cortisole level was 32 (ruled out adrenal insufficiency ) -Procalcitonin was elevated -leukocytosis improved after starting zosyn - consult ID was appreciated -CT scan abd/pelv showed proctitis - stool studies (Cx, O&P, Giardia, Desiree virus, WBCs, Heme occult, Crypto/cyclo/ isosprodium as he is is considered immune compromised ) -C-diff / rota virus and shiga toxins/salmonella were negative -blood and urine cultures all negative -upon discharge, I think zosyn can be switched to renally adjusted flagyl/cipro for at least one week, giving the chronicity of his GI symptoms, but will defer decision to ID Positive troponin, Echo showed EF of 35-40% possible demand ischemia / NSTEMI no chest pain 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/currently on heparin drip as per flour worker DCed heparin drip last night started ASA this am acute metabolic encephalopathy, improving -initial inciting factors appear to be pain, sepsis, pain meds, hospital stay superimposed on likely somewhat brittle baseline of health RML density, questionable pneumonia S/P 6 days of levofloxacin / vanco -ddx is HAP vs aspiration - follow status, aspiration precautions L humerus fx -sling, supportive care L hand pain xray rib fractures (multiple, closed) -pain control as possible ESRD -on HD - continue per nephrology CAD, prior CABG -appears overall stable, see above in regards to troponin -continue current meds chronic systolic CHF, Echo showed EF of 35-40% -appearing compensated - follow closely w volume for hypotension, however ambulatory dysfunction/leg weakness -Continue PT/OT -likely will need rehab dyslipidemia -Continue statin BPH -Continue tamsulosin Severe anemia , study showed chronic diseases anemia and floic acid deficiency started on 1mg folic acid po daily DVT proph -heparin SQ referred to insurance for transfer to rehab awaiting disposition
[2016-09-03] MEDS: ATORVASTATIN 20 MG TAB PO SCH (21:01)
[2016-09-03] MEDS ORDERED: CALCIUM CARBONATE 500 MG CHEWABLE PO PRN (22:45)
[2016-09-04] VITALS (27 sets, daily range): BP systolic 88–149; BP diastolic 55–86; PULSE 50–97; TEMP 36.7–37.2; O2SAT 92–98
[2016-09-04] MEDS: ALBUTEROL 0.083% NEBU SOLN 3 ML VIAL INH SCH ×4 (02:19→19:39)
[2016-09-04] MEDS: HEPARIN SOD 5000 UNIT/0.5 ML CARP SQ SCH ×3 (06:15→21:34)
--- NOTE | 2016-09-04 07:21 | Nephrology Progress Note ---
Nephrology Progress Note Date of Service: Sep 04, 2016. Subjective 81 yo male with esrd who fell and had humerus fracture/rib fractures. has had complicated hospital course with significant diarrhea from proctitis/altered mental status from pain meds and hospital stay/failure to thrive who is sleepy this morning. pt complaining of difficulty sleeping. diarrhea has improved but has the urge to defecate and then only goes a little per patient. continues to have pain in arm. Objective Date Time Temp Pulse Resp B/P Pulse Ox O2 Delivery O2 Flow Rate FiO2 09/04/16 07:06 92 16 96 Room Air 09/04/16 02:20 92 16 95 Room Air 09/04/16 00:00 37.2 78 20 121/61 97 Room Air 09/03/16 23:59 Room Air 09/03/16 21:04 99 132/73 09/03/16 20:00 Room Air 09/03/16 19:26 72 16 95 Room Air 09/03/16 16:40 Room Air 09/03/16 15:25 36.7 83 151/70 96 Room Air 09/03/16 15:03 36.7 92 16 94 2.0 09/03/16 14:34 92 16 94 Room Air 09/03/16 12:00 Room Air 09/03/16 11:13 36.7 79 16 119/61 93 Room Air 09/03/16 08:00 Room Air 09/03/16 07:36 36.8 78 16 135/72 98 Room Air Physical Exam: General-aaox3, sleepy Eyes-no scleral icterus ENT-mmm Neck-supple Lungs-cta Innps-pafndwv-toksz Abdomen-bs+ s/nt/nd Extremities- no edema Neuro-nonfocal Current Inpatient Medications Medications (Trade) Dose Ordered Sig/Daniel Route Start Time Stop Time Status Last Admin Dose Admin Atorvastatin Calcium (Lipitor Tab) 20 mg QPM PO 08/17/16 21:00 09/16/16 20:59 09/03/16 21:01 20 MG Calcium Acetate (Phoslo Cap) 1,334 mg TIDM PO 08/18/16 08:30 09/17/16 08:29 09/03/16 17:32 1,334 MG Acetaminophen (Tylenol Tab) 650 mg Q4H PRN PO 08/17/16 16:45 09/16/16 16:44 09/03/16 04:07 650 MG Ondansetron HCl (Zofran Inj) 4 mg Q6H PRN IV 08/17/16 16:45 09/16/16 16:44 09/01/16 13:18 4 MG Albuterol/ Ipratropium (Duoneb) 3 ml Q2H PRN INH 08/17/16 19:45 09/16/16 19:44 08/31/16 22:29 3 ML Tramadol HCl 50 mg 50 mg Q4H PRN PO 08/21/16 16:45 09/20/16 16:44 Future Hold 08/22/16 14:10 50 MG Acetaminophen/ Empty Bag (Ofirmev IV/ Empty Iv Bag 100ml) 65 ml @ 260 mls/hr Q6H PRN IV 08/21/16 20:30 09/20/16 20:29 09/03/16 21:57 260 MLS/HR Enteral Nutritional Formula (Boost Breeze Nutritional Drink) 1 box BIDM PO 08/23/16 17:45 09/22/16 17:44 08/30/16 08:11 1 BOX Albuterol Sulfate (Ventolin 0.083% 2.5MG/3ML Neb) 2.5 mg Q6R INH 08/24/16 09:00 09/23/16 08:59 09/04/16 07:06 2.5 MG Lactulose (Chronulac Syrup) 20 gm Q6H PRN PO 08/25/16 11:30 09/24/16 11:29 08/25/16 14:22 20 GM Nystatin (Mycostatin Susp) 10 ml QID PO 08/27/16 13:00 09/06/16 12:59 09/03/16 21:02 10 ML Lactobacillus Acidophilus (Lactinex Granules Pack) 1 gm TIDM PO 08/28/16 16:45 09/27/16 16:44 09/03/16 17:32 1 GM Nitroglycerin (Nitrostat Tab) 0.4 mg Q5M PRN SL 08/31/16 22:30 09/30/16 22:29 Metoprolol Tartrate (Lopressor Tab) 25 mg BID PO 09/01/16 21:00 10/01/16 20:59 09/03/16 21:02 25 MG Heparin Sodium (Porcine) (Heparin Sq 5000 Unit/0.5ml) 5,000 unit Q8 SQ 09/03/16 08:00 10/03/16 07:59 09/04/16 06:15 5,000 UNIT Heparin Sodium (Porcine) (Heparin Iv Bolus) 1,000 unit ONE IV 09/04/16 08:00 09/04/16 08:01 Heparin Sodium (Porcine) (Heparin Iv Bolus) 400 unit Q1H IV 09/04/16 08:00 09/04/16 10:01 Epoetin Andrei (Procrit Inj) 10,000 units 0800 IV. 09/04/16 08:00 09/04/16 14:00 Calcium Carbonate (Tums Chew Tab) 500 mg AC PRN PO 09/03/16 22:45 10/03/16 22:44 09/03/16 23:04 500 MG Last 24 Hours Test 09/03/16 08:26 09/03/16 14:20 09/04/16 04:44 Absolute Reticulocyte Count 0.08 10^6/uL Percent Reticulocyte Count 2.3 % Iron Level 22 mcg/dl Total Iron Binding Capacity 104 mcg/dl Transferrin 85 mg/dl Transferrin % Saturation 19 % Ferritin 1915.4 ng/ml Vitamin B12 Level 697 pg/mL Folate 5.58 ng/mL Stool Occult Blood POSITIVE Assessment & Plan ESRD-plan on dialysis today. pt still quite fragile and would benefit from rehab. trying to control pain while keeping patient mentally aware. bp is better. lungs cta and no edema. still with decreased appetite. 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 continue procrit with dialysis.
[2016-09-04 07:46] LABS: MEAN CELL VOLUME 75.7 fL (80-100); MEAN CORPUSCULAR HEMOGLOBIN 24.1 pg (25-34); MEAN CORPUSCULAR HGB CONC 31.8 g/dl (32-36); MEAN PLATELET VOLUME 9.1 fL (7.4-10.4); PLATELET COUNT 322 K/uL (130-400); WHITE BLOOD COUNT 7.93 K/uL (4.8-10.8)
[2016-09-04 07:59] LABS: PARTIAL THROMBOPLASTIN RATIO 1.3
[2016-09-04] MEDS ORDERED: HEPARIN SOD (PORCINE) 1000 UNIT/ML 10 ML VIAL IV SCH ×2 (08:00)
[2016-09-04] MEDS ORDERED: EPOETIN ALFA 10,000 UNITS/ML VIAL IV. SCH (08:00)
[2016-09-04] MEDS: CALCIUM ACETATE 667MG GELCAP PO SCH ×3 (08:00→15:49)
[2016-09-04] MEDS: LACTOBACILLUS ACIDOPHILUS 1 GM PACK PO SCH ×3 (08:00→15:49)
[2016-09-04] MEDS: BOOST BREEZE NUTRITION DRINK 1 BOX PO SCH ×2 (08:00→15:55)
[2016-09-04] MEDS: METOPROLOL TARTRATE 25 MG TAB PO SCH ×2 (08:01→19:59)
[2016-09-04] MEDS: NYSTATIN SUSP 500,000 U/5 ML UDC PO SCH ×4 (08:01→19:59)
[2016-09-04 08:08] LABS: ANISOCYTOSIS PRESENT; BASO % 0.3 %; BASO ABS # 0.02 K/uL (0-0.2); COMPLETE YES; HYPOCHROMIA PRESENT; IG% 1.5 %; LYMPH % 15.4 %; LYMPH ABS # 1.22 K/uL (1.2-3.4); MONO % 8.4 %; NEUT % 71.4 %; OVALOCYTES 1+; POLYCHROMASIA 1+
[2016-09-04 09:09] LABS: ALB/GLOB RATIO 0.6 (0.9-2); BUN/CREATININE RATIO 6.7 (10-20); CALCIUM 8.5 mg/dl (8.5-10.1); CREATININE 7.3 mg/dl (0.60-1.40); MAGNESIUM 2.2 mg/dl (1.8-2.4); PHOSPHORUS 5.4 mg/dl (2.5-4.9); POTASSIUM 4.9 mmol/L (3.5-5.1)
--- NOTE | 2016-09-04 17:15 | Progress Note ---
Subjective Date of Service: Sep 04, 2016. Subjective Pt evaluation today including: conversation w/ patient, conversation w/ family , physical exam, lab review, review of inpatient medication list Pain: left arm pain from fracture PO Intake: poor today Voiding: no voiding problems patient very fatigued from dialysis today, poor appetite, says his left arm continues to hurt discussed rehab and he is agreeable no chest pain, no dyspnea, no leg swelling, no constipation Problem List Medical Problems: (1) Fracture, humerus, anatomical neck Status: Acute (2) Multiple fractures of ribs, left side, initial encounter for closed fracture Status: Acute Review of Systems Constitutional: + fatigue, + weakness Musculoskeletal: + joint pain (left arm pain from fracture) All Other Systems: Reviewed and Negative Medications Current Inpatient Medications Medications (Trade) Dose Ordered Sig/Daniel Route Start Time Stop Time Status Last Admin Dose Admin Atorvastatin Calcium (Lipitor Tab) 20 mg QPM PO 08/17/16 21:00 09/16/16 20:59 09/03/16 21:01 20 MG Calcium Acetate (Phoslo Cap) 1,334 mg TIDM PO 08/18/16 08:30 09/17/16 08:29 09/04/16 15:49 1,334 MG Acetaminophen (Tylenol Tab) 650 mg Q4H PRN PO 08/17/16 16:45 09/16/16 16:44 09/03/16 04:07 650 MG Ondansetron HCl (Zofran Inj) 4 mg Q6H PRN IV 08/17/16 16:45 09/16/16 16:44 09/01/16 13:18 4 MG Albuterol/ Ipratropium (Duoneb) 3 ml Q2H PRN INH 08/17/16 19:45 09/16/16 19:44 08/31/16 22:29 3 ML Tramadol HCl 50 mg 50 mg Q4H PRN PO 08/21/16 16:45 09/20/16 16:44 Future Hold 08/22/16 14:10 50 MG Acetaminophen/ Empty Bag (Ofirmev IV/ Empty Iv Bag 100ml) 65 ml @ 260 mls/hr Q6H PRN IV 08/21/16 20:30 09/20/16 20:29 09/03/16 21:57 260 MLS/HR Enteral Nutritional Formula (Boost Breeze Nutritional Drink) 1 box BIDM PO 08/23/16 17:45 09/22/16 17:44 09/04/16 15:55 1 BOX Albuterol Sulfate (Ventolin 0.083% 2.5MG/3ML Neb) 2.5 mg Q6R INH 08/24/16 09:00 09/23/16 08:59 09/04/16 14:33 2.5 MG Lactulose (Chronulac Syrup) 20 gm Q6H PRN PO 08/25/16 11:30 09/24/16 11:29 08/25/16 14:22 20 GM Nystatin (Mycostatin Susp) 10 ml QID PO 08/27/16 13:00 09/06/16 12:59 09/04/16 15:50 10 ML Lactobacillus Acidophilus (Lactinex Granules Pack) 1 gm TIDM PO 08/28/16 16:45 09/27/16 16:44 09/04/16 15:49 1 GM Nitroglycerin (Nitrostat Tab) 0.4 mg Q5M PRN SL 08/31/16 22:30 09/30/16 22:29 Metoprolol Tartrate (Lopressor Tab) 25 mg BID PO 09/01/16 21:00 10/01/16 20:59 09/03/16 21:02 25 MG Heparin Sodium (Porcine) (Heparin Sq 5000 Unit/0.5ml) 5,000 unit Q8 SQ 09/03/16 08:00 10/03/16 07:59 09/04/16 14:19 5,000 UNIT Calcium Carbonate (Tums Chew Tab) 500 mg AC PRN PO 09/03/16 22:45 10/03/16 22:44 09/03/16 23:04 500 MG Objective Vital Signs Date Time Temp Pulse Resp B/P Pulse Ox O2 Delivery O2 Flow Rate FiO2 09/04/16 15:28 37.1 63 20 116/61 98 Room Air 09/04/16 14:34 97 16 95 Room Air 09/04/16 08:22 Room Air 09/04/16 08:02 81 09/04/16 07:54 36.8 50 19 146/64 98 Room Air 09/04/16 07:06 92 16 96 Room Air 09/04/16 02:20 92 16 95 Room Air 09/04/16 00:00 37.2 78 20 121/61 97 Room Air 09/03/16 23:59 Room Air 09/03/16 21:04 99 132/73 09/03/16 20:00 Room Air 09/03/16 19:26 72 16 95 Room Air Physical Exam General Appearance: WD/WN, no apparent distress Eyes: normal inspection, EOMI, sclerae normal ENT: normal ENT inspection, hearing grossly normal, pharynx normal Neck: supple, no adenopathy, no JVD, trachea midline Respiratory/Chest: chest non-tender, no respiratory distress, no accessory muscle use Cardiovascular: regular rate, rhythm, no edema, no gallop, no JVD, no murmur Abdomen: normal bowel sounds, non tender, soft, no organomegaly Extremities: no calf tenderness, + pertinent finding (left arm bruising, in sling) 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, no motor/sensory deficits, alert, normal mood/affect, oriented x 3 Lymphatic: no adenopathy Laboratory Results Last 24 Hours Test 09/04/16 07:33 White Blood Count 7.93 K/uL Red Blood Count 3.70 M/uL Hemoglobin 8.9 g/dL Hematocrit 28.0 % Mean Corpuscular Volume 75.7 fL Mean Corpuscular Hemoglobin 24.1 pg Mean Corpuscular Hemoglobin Concent 31.8 g/dl Platelet Count 322 K/uL Mean Platelet Volume 9.1 fL Neutrophils (%) (Auto) 71.4 % Lymphocytes (%) (Auto) 15.4 % Monocytes (%) (Auto) 8.4 % Eosinophils (%) (Auto) 3.0 % Basophils (%) (Auto) 0.3 % Neutrophils # (Auto) 5.66 K/uL Lymphocytes # (Auto) 1.22 K/uL Monocytes # (Auto) 0.67 K/uL Eosinophils # (Auto) 0.24 K/uL Basophils # (Auto) 0.02 K/uL RDW Standard Deviation 42.0 fL RDW Coefficient of Variation 15.8 % Immature Granulocyte % (Auto) 1.5 % Immature Granulocyte # (Auto) 0.12 K/uL Polychromasia 1+ Hypochromasia PRESENT Anisocytosis PRESENT Ovalocytes 1+ Activated Partial Thromboplast Time 34.1 SECONDS Partial Thromboplastin Ratio 1.3 Sodium Level 135 mmol/L Potassium Level 4.9 mmol/L Chloride Level 98 mmol/L Carbon Dioxide Level 23 mmol/L Anion Gap 14.0 mmol/L Blood Urea Nitrogen 49 mg/dl Creatinine 7.30 mg/dl Est Creatinine Clear Calc Drug Dose 9.6 ml/min Estimated GFR () 7.3 Estimated GFR (Non- 6.3 BUN/Creatinine Ratio 6.7 Random Glucose 83 mg/dl Calcium Level 8.5 mg/dl Phosphorus Level 5.4 mg/dl Magnesium Level 2.2 mg/dl Total Bilirubin 0.4 mg/dl Aspartate Amino Transf (AST/SGOT) 20 U/L Alanine Aminotransferase (ALT/SGPT) 34 U/L Alkaline Phosphatase 97 U/L Total Protein 6.5 gm/dl Albumin 2.4 gm/dl Globulin 4.1 gm/dl Albumin/Globulin Ratio 0.6 Assessment and Plan Septic shock likely secondary to proctitis/colitis, improving received full course of Zosyn, no further antibiotics per ID vitals stable, labs stable Positive troponin, Echo showed EF of 35-40% demand ischemia, no evidence of NSTEMI holding aspirin due to bleeding and he is [employer] acute metabolic encephalopathy, resolved today -initial inciting factors appear to be pain, sepsis, pain meds, hospital stay superimposed on likely somewhat brittle baseline of health RML density, questionable pneumonia S/P 6 days of levofloxacin / vanco -ddx is HAP vs aspiration - follow status, aspiration precautions - resolved today L humerus fx -sling, supportive care L hand pain - no fracture rib fractures (multiple, closed) -pain control as possible ESRD -on HD - continue per nephrology, had HD today CAD, prior CABG -appears overall stable, see above in regards to troponin -continue current meds chronic systolic CHF, Echo showed EF of 35-40% -appearing compensated - follow closely w volume for hypotension, however ambulatory dysfunction/leg weakness -Continue PT/OT -likely will need rehab dyslipidemia -Continue statin BPH -Continue tamsulosin Severe anemia , study showed chronic diseases anemia and folic acid deficiency started on 1mg folic acid po daily DVT proph -heparin SQ referred to insurance for transfer to rehab awaiting disposition
[2016-09-04] MEDS: ATORVASTATIN 20 MG TAB PO SCH (19:59)
[2016-09-05] VITALS (9 sets, daily range): BP systolic 121–162; BP diastolic 65–85; PULSE 74–93; TEMP 36.4–37.2; O2SAT 94–98
[2016-09-05] MEDS: ACETAMINOPHEN IV 650 MG in EMPTY BAG 0 ML IV PRN (02:46)
[2016-09-05] MEDS: ALBUTEROL 0.083% NEBU SOLN 3 ML VIAL INH SCH ×4 (03:02→19:49)
[2016-09-05] MEDS: HEPARIN SOD 5000 UNIT/0.5 ML CARP SQ SCH ×3 (06:06→21:07)
[2016-09-05 06:49] LABS: PARTIAL THROMBOPLASTIN RATIO 1.2
[2016-09-05] MEDS: BOOST BREEZE NUTRITION DRINK 1 BOX PO SCH ×2 (08:00→17:56)
[2016-09-05 08:40] LABS: HEPATITIS B AB POS
[2016-09-05] MEDS: CALCIUM ACETATE 667MG GELCAP PO SCH ×3 (09:40→17:55)
[2016-09-05] MEDS: LACTOBACILLUS ACIDOPHILUS 1 GM PACK PO SCH ×3 (09:41→17:58)
[2016-09-05] MEDS: NYSTATIN SUSP 500,000 U/5 ML UDC PO SCH ×4 (09:41→21:00)
[2016-09-05] MEDS: METOPROLOL TARTRATE 25 MG TAB PO SCH ×2 (10:40→20:59)
[2016-09-05] MEDS: ACETAMINOPHEN 325 MG TAB PO PRN (10:41)
--- NOTE | 2016-09-05 16:48 | Progress Note ---
Subjective Date of Service: Sep 05, 2016. Subjective Pt evaluation today including: conversation w/ patient, physical exam, review of inpatient medication list Pain: left arm PO Intake: adequate Voiding: no voiding problems patient still with pain, very tired and frustrated today tolerated therapy but not very well discussed rehab, need to make referrals Problem List Medical Problems: (1) Fracture, humerus, anatomical neck Status: Acute (2) Multiple fractures of ribs, left side, initial encounter for closed fracture Status: Acute Review of Systems Constitutional: + fatigue, + weakness Musculoskeletal: + joint pain (left arm) All Other Systems: Reviewed and Negative Medications Current Inpatient Medications Medications (Trade) Dose Ordered Sig/Daniel Route Start Time Stop Time Status Last Admin Dose Admin Atorvastatin Calcium (Lipitor Tab) 20 mg QPM PO 08/17/16 21:00 09/16/16 20:59 09/04/16 19:59 20 MG Calcium Acetate (Phoslo Cap) 1,334 mg TIDM PO 08/18/16 08:30 09/17/16 08:29 09/05/16 09:40 1,334 MG Acetaminophen (Tylenol Tab) 650 mg Q4H PRN PO 08/17/16 16:45 09/16/16 16:44 09/05/16 10:41 650 MG Ondansetron HCl (Zofran Inj) 4 mg Q6H PRN IV 08/17/16 16:45 09/16/16 16:44 09/01/16 13:18 4 MG Albuterol/ Ipratropium (Duoneb) 3 ml Q2H PRN INH 08/17/16 19:45 09/16/16 19:44 08/31/16 22:29 3 ML Tramadol HCl 50 mg 50 mg Q4H PRN PO 08/21/16 16:45 09/20/16 16:44 Future Hold 08/22/16 14:10 50 MG Acetaminophen/ Empty Bag (Ofirmev IV/ Empty Iv Bag 100ml) 65 ml @ 260 mls/hr Q6H PRN IV 08/21/16 20:30 09/20/16 20:29 09/05/16 02:46 260 MLS/HR Enteral Nutritional Formula (Boost Breeze Nutritional Drink) 1 box BIDM PO 08/23/16 17:45 09/22/16 17:44 09/04/16 15:55 1 BOX Albuterol Sulfate (Ventolin 0.083% 2.5MG/3ML Neb) 2.5 mg Q6R INH 08/24/16 09:00 09/23/16 08:59 09/05/16 14:25 2.5 MG Lactulose (Chronulac Syrup) 20 gm Q6H PRN PO 08/25/16 11:30 09/24/16 11:29 08/25/16 14:22 20 GM Nystatin (Mycostatin Susp) 10 ml QID PO 08/27/16 13:00 09/06/16 12:59 09/05/16 09:41 10 ML Lactobacillus Acidophilus (Lactinex Granules Pack) 1 gm TIDM PO 08/28/16 16:45 09/27/16 16:44 09/05/16 09:41 1 GM Nitroglycerin (Nitrostat Tab) 0.4 mg Q5M PRN SL 08/31/16 22:30 09/30/16 22:29 Metoprolol Tartrate (Lopressor Tab) 25 mg BID PO 09/01/16 21:00 10/01/16 20:59 09/05/16 10:40 25 MG Heparin Sodium (Porcine) (Heparin Sq 5000 Unit/0.5ml) 5,000 unit Q8 SQ 09/03/16 08:00 10/03/16 07:59 09/05/16 06:06 5,000 UNIT Calcium Carbonate (Tums Chew Tab) 500 mg AC PRN PO 09/03/16 22:45 10/03/16 22:44 09/03/16 23:04 500 MG Objective Vital Signs Date Time Temp Pulse Resp B/P Pulse Ox O2 Delivery O2 Flow Rate FiO2 09/05/16 15:23 37.2 86 20 143/85 95 Room Air 09/05/16 14:25 78 16 98 Room Air 09/05/16 08:00 96 Room Air 2.0 09/05/16 07:04 36.4 93 16 121/67 96 Room Air 09/05/16 03:02 84 16 94 Room Air 09/05/16 00:00 Room Air 09/04/16 23:44 36.9 91 18 131/68 94 Room Air 09/04/16 19:45 89 16 96 Room Air Physical Exam General Appearance: WD/WN, no apparent distress Neck: supple, no adenopathy, no JVD, trachea midline Respiratory/Chest: chest non-tender, lungs clear, normal breath sounds, no respiratory distress, no accessory muscle use Cardiovascular: regular rate, rhythm, no edema, no gallop, no JVD, no murmur Abdomen: normal bowel sounds, non tender, soft, no organomegaly Extremities: no pedal edema, no calf tenderness, pelvis stable, + pertinent finding (left arm with brusing, tenderness, in sling) 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, alert, normal mood/affect, oriented x 3, + motor weakness Skin: normal color, warm/dry, no rash Laboratory Results Last 24 Hours Test 09/05/16 06:05 Activated Partial Thromboplast Time 31.3 SECONDS Partial Thromboplastin Ratio 1.2 Hepatitis B Surface Antigen NEG Hepatitis B Surface Antibody POS Assessment and Plan Septic shock likely secondary to proctitis/colitis, improving received full course of Zosyn, no further antibiotics per ID vitals stable, labs stable Positive troponin, Echo showed EF of 35-40% demand ischemia, no evidence of NSTEMI holding aspirin due to bleeding and he is [employer] acute metabolic encephalopathy, resolved today -initial inciting factors appear to be pain, sepsis, pain meds, hospital stay superimposed on likely somewhat brittle baseline of health RML density, questionable pneumonia S/P 6 days of levofloxacin / vanco -ddx is HAP vs aspiration - follow status, aspiration precautions - resolved today L humerus fx -sling, supportive care L hand pain - no fracture rib fractures (multiple, closed) -pain control as possible ESRD -on HD - continue per nephrology, had HD yesterday CAD, prior CABG -appears overall stable, see above in regards to troponin -continue current meds chronic systolic CHF, Echo showed EF of 35-40% -appearing compensated - follow closely w volume for hypotension, however ambulatory dysfunction/leg weakness -Continue PT/OT -likely will need rehab, referrals sent dyslipidemia -Continue statin BPH -Continue tamsulosin Severe anemia , study showed chronic diseases anemia and folic acid deficiency started on 1mg folic acid po daily DVT proph -heparin SQ referred to insurance for transfer to rehab awaiting disposition
[2016-09-05] MEDS: ATORVASTATIN 20 MG TAB PO SCH (21:00)
[2016-09-05] MEDS: TRAZODONE HCL 50 MG TAB PO SCH (21:01)
[2016-09-06] VITALS (25 sets, daily range): BP systolic 90–170; BP diastolic 53–95; PULSE 54–95; TEMP 36.5–36.8; O2SAT 92–100
[2016-09-06] MEDS: ALBUTEROL 0.083% NEBU SOLN 3 ML VIAL INH SCH ×4 (03:00→19:16)
[2016-09-06] MEDS: HEPARIN SOD 5000 UNIT/0.5 ML CARP SQ SCH ×3 (06:06→20:48)
[2016-09-06 06:32] LABS: HEMATOCRIT 27.3 % (42-52); MEAN CORPUSCULAR HEMOGLOBIN 23.6 pg (25-34); MEAN CORPUSCULAR HGB CONC 31.5 g/dl (32-36); MEAN PLATELET VOLUME 9.4 fL (7.4-10.4); PLATELET COUNT 324 K/uL (130-400); RED BLOOD COUNT 3.64 M/uL (4.7-6.1); WHITE BLOOD COUNT 8.91 K/uL (4.8-10.8)
[2016-09-06 06:38] LABS: PARTIAL THROMBOPLASTIN RATIO 1.2
--- NOTE | 2016-09-06 07:03 | Nephrology Progress Note ---
Nephrology Progress Note Date of Service: Sep 06, 2016. Subjective 81 yo male with esrd who fell and had humerus fracture/rib fractures. has had complicated hospital course with nstemi, metabolic encephalopathy, possible aspiration pneumonitis, proctitis. pt overall much improved compared to admission. however still very weak. for dialysis today. Objective Date Time Temp Pulse Resp B/P Pulse Ox O2 Delivery O2 Flow Rate FiO2 09/06/16 03:41 81 16 96 Room Air 09/06/16 01:00 Room Air 09/05/16 22:53 36.9 89 22 162/78 98 Room Air 09/05/16 20:58 84 149/65 96 Room Air 09/05/16 19:49 74 16 98 Room Air 09/05/16 16:00 95 Room Air 09/05/16 15:23 37.2 86 20 143/85 95 Room Air 09/05/16 14:25 78 16 98 Room Air 09/05/16 08:00 96 Room Air 2.0 09/05/16 07:04 36.4 93 16 121/67 96 Room Air Physical Exam: General-aaox3 Eyes-no scleral icterus ENT-mmm Neck-supple Lungs-clear Kurem-kasyqts-uwscx Abdomen-bs+ s/nt/nd Extremities- no edema Neuro-nonfocal Current Inpatient Medications Medications (Trade) Dose Ordered Sig/Daniel Route Start Time Stop Time Status Last Admin Dose Admin Atorvastatin Calcium (Lipitor Tab) 20 mg QPM PO 08/17/16 21:00 09/16/16 20:59 09/05/16 21:00 20 MG Calcium Acetate (Phoslo Cap) 1,334 mg TIDM PO 08/18/16 08:30 09/17/16 08:29 09/05/16 17:55 1,334 MG Acetaminophen (Tylenol Tab) 650 mg Q4H PRN PO 08/17/16 16:45 09/16/16 16:44 09/05/16 10:41 650 MG Ondansetron HCl (Zofran Inj) 4 mg Q6H PRN IV 08/17/16 16:45 09/16/16 16:44 09/01/16 13:18 4 MG Albuterol/ Ipratropium (Duoneb) 3 ml Q2H PRN INH 08/17/16 19:45 09/16/16 19:44 08/31/16 22:29 3 ML Tramadol HCl 50 mg 50 mg Q4H PRN PO 08/21/16 16:45 09/20/16 16:44 Future Hold 08/22/16 14:10 50 MG Acetaminophen/ Empty Bag (Ofirmev IV/ Empty Iv Bag 100ml) 65 ml @ 260 mls/hr Q6H PRN IV 08/21/16 20:30 09/20/16 20:29 09/05/16 02:46 260 MLS/HR Enteral Nutritional Formula (Boost Breeze Nutritional Drink) 1 box BIDM PO 08/23/16 17:45 09/22/16 17:44 09/04/16 15:55 1 BOX Albuterol Sulfate (Ventolin 0.083% 2.5MG/3ML Neb) 2.5 mg Q6R INH 08/24/16 09:00 09/23/16 08:59 09/06/16 03:00 2.5 MG Lactulose (Chronulac Syrup) 20 gm Q6H PRN PO 08/25/16 11:30 09/24/16 11:29 08/25/16 14:22 20 GM Nystatin (Mycostatin Susp) 10 ml QID PO 08/27/16 13:00 09/06/16 12:59 09/05/16 21:00 10 ML Lactobacillus Acidophilus (Lactinex Granules Pack) 1 gm TIDM PO 08/28/16 16:45 09/27/16 16:44 09/05/16 17:58 1 GM Nitroglycerin (Nitrostat Tab) 0.4 mg Q5M PRN SL 08/31/16 22:30 09/30/16 22:29 Metoprolol Tartrate (Lopressor Tab) 25 mg BID PO 09/01/16 21:00 10/01/16 20:59 09/05/16 20:59 25 MG Heparin Sodium (Porcine) (Heparin Sq 5000 Unit/0.5ml) 5,000 unit Q8 SQ 09/03/16 08:00 10/03/16 07:59 09/06/16 06:06 5,000 UNIT Calcium Carbonate (Tums Chew Tab) 500 mg AC PRN PO 09/03/16 22:45 10/03/16 22:44 09/03/16 23:04 500 MG Polyethylene (Miralax Powder Packet) 17 gm DAILY PO 09/06/16 09:00 10/06/16 08:59 Trazodone HCl (Desyrel Tab) 50 mg HS PO 09/05/16 21:00 10/05/16 20:59 09/05/16 21:01 50 MG Last 24 Hours Test 09/06/16 06:00 White Blood Count 8.91 K/uL Red Blood Count 3.64 M/uL Hemoglobin 8.6 g/dL Hematocrit 27.3 % Mean Corpuscular Volume 75.0 fL Mean Corpuscular Hemoglobin 23.6 pg Mean Corpuscular Hemoglobin Concent 31.5 g/dl RDW Standard Deviation 42.9 fL RDW Coefficient of Variation 16.5 % Platelet Count 324 K/uL Mean Platelet Volume 9.4 fL Activated Partial Thromboplast Time 31.7 SECONDS Partial Thromboplastin Ratio 1.2 Assessment & Plan ESRD-plan on dialysis today. pt is eating better and bp has improved and k is also trending up. will dialyze on a 2k bath and remove about 2 liters as bp tolerates. Anemia of Renal Failure-will continue procrit on dialysis.
[2016-09-06] MEDS ORDERED: EPOETIN ALFA 10,000 UNITS/ML VIAL IV. ONE (07:15)
[2016-09-06] MEDS ORDERED: EPOETIN ALFA INJ 12,000 UNITS in SYRINGE 0 ML IV. SCH (07:30)
[2016-09-06] MEDS: BOOST BREEZE NUTRITION DRINK 1 BOX PO SCH ×2 (08:00→17:00)
[2016-09-06] MEDS: LACTOBACILLUS ACIDOPHILUS 1 GM PACK PO SCH ×3 (08:08→17:00)
[2016-09-06] MEDS: CALCIUM ACETATE 667MG GELCAP PO SCH ×3 (08:08→17:00)
[2016-09-06] MEDS: POLYETHYLENE (MIRALAX) 17 GM PACK PO SCH (08:09)
[2016-09-06] MEDS: NYSTATIN SUSP 500,000 U/5 ML UDC PO SCH (09:00)
[2016-09-06] MEDS: METOPROLOL TARTRATE 25 MG TAB PO SCH ×2 (09:00→20:50)
[2016-09-06 10:23] LABS: O&P SOURCE OTHER-TOTAL
[2016-09-06 10:59] LABS: BUN/CREATININE RATIO 6.5 (10-20); CALCIUM 8.1 mg/dl (8.5-10.1); CREATININE 5.8 mg/dl (0.60-1.40); MAGNESIUM 2.3 mg/dl (1.8-2.4); PHOSPHORUS 3.9 mg/dl (2.5-4.9); POTASSIUM 4.5 mmol/L (3.5-5.1)
[2016-09-06 12:51] LABS: CRYPTOSPORIDIUM AG TC 37213 NOT DETECTED (NOT DETECTED); ISOSPORA+CYCLOSPORA NOT DETECTED; O&P GIARDIA AG NOT DETECTED (NOT DETECTED)
[2016-09-06] MEDS: TRAZODONE HCL 50 MG TAB PO SCH (20:49)
[2016-09-06] MEDS: ATORVASTATIN 20 MG TAB PO SCH (20:49)
[2016-09-07] VITALS (7 sets, daily range): BP systolic 119–141; BP diastolic 68–99; PULSE 77–88; TEMP 36.3–36.5; O2SAT 92–97
[2016-09-07] MEDS: ALBUTEROL 0.083% NEBU SOLN 3 ML VIAL INH SCH ×2 (01:37→07:32)
[2016-09-07] MEDS: HEPARIN SOD 5000 UNIT/0.5 ML CARP SQ SCH ×3 (06:02→20:08)
--- NOTE | 2016-09-07 07:29 | Progress Note ---
Subjective Date of Service: Sep 06, 2016. Subjective Pt evaluation today including: conversation w/ patient, physical exam, lab review, review of inpatient medication list Pain: left arm PO Intake: adequate Voiding: no voiding problems had HD today, very weak denied insurance auth for [facility], will ask for peer to peer slept for 4 hours last night moved bowels with miralax Problem List Medical Problems: (1) Fracture, humerus, anatomical neck Status: Acute (2) Multiple fractures of ribs, left side, initial encounter for closed fracture Status: Acute Review of Systems Constitutional: + fatigue, + weakness Musculoskeletal: + joint pain (left arm from fracture) All Other Systems: Reviewed and Negative Medications Current Inpatient Medications Medications (Trade) Dose Ordered Sig/Daniel Route Start Time Stop Time Status Last Admin Dose Admin Atorvastatin Calcium (Lipitor Tab) 20 mg QPM PO 08/17/16 21:00 09/16/16 20:59 09/05/16 21:00 20 MG Calcium Acetate (Phoslo Cap) 1,334 mg TIDM PO 08/18/16 08:30 09/17/16 08:29 09/06/16 12:00 1,334 MG Acetaminophen (Tylenol Tab) 650 mg Q4H PRN PO 08/17/16 16:45 09/16/16 16:44 09/05/16 10:41 650 MG Ondansetron HCl (Zofran Inj) 4 mg Q6H PRN IV 08/17/16 16:45 09/16/16 16:44 09/01/16 13:18 4 MG Albuterol/ Ipratropium (Duoneb) 3 ml Q2H PRN INH 08/17/16 19:45 09/16/16 19:44 08/31/16 22:29 3 ML Tramadol HCl 50 mg 50 mg Q4H PRN PO 08/21/16 16:45 09/20/16 16:44 Future Hold 08/22/16 14:10 50 MG Acetaminophen/ Empty Bag (Ofirmev IV/ Empty Iv Bag 100ml) 65 ml @ 260 mls/hr Q6H PRN IV 08/21/16 20:30 09/20/16 20:29 09/05/16 02:46 260 MLS/HR Enteral Nutritional Formula (Boost Breeze Nutritional Drink) 1 box BIDM PO 2/8/17 17:45 09/22/16 17:44 09/04/16 15:55 1 BOX Albuterol Sulfate (Ventolin 0.083% 2.5MG/3ML Neb) 2.5 mg Q6R INH 08/24/16 09:00 09/23/16 08:59 09/06/16 14:29 2.5 MG Lactulose (Chronulac Syrup) 20 gm Q6H PRN PO 08/25/16 11:30 09/24/16 11:29 08/25/16 14:22 20 GM Lactobacillus Acidophilus (Lactinex Granules Pack) 1 gm TIDM PO 08/28/16 16:45 09/27/16 16:44 09/06/16 08:08 1 GM Nitroglycerin (Nitrostat Tab) 0.4 mg Q5M PRN SL 08/31/16 22:30 09/30/16 22:29 Metoprolol Tartrate (Lopressor Tab) 25 mg BID PO 09/01/16 21:00 10/01/16 20:59 09/05/16 20:59 25 MG Heparin Sodium (Porcine) (Heparin Sq 5000 Unit/0.5ml) 5,000 unit Q8 SQ 09/03/16 08:00 10/03/16 07:59 09/06/16 06:06 5,000 UNIT Calcium Carbonate (Tums Chew Tab) 500 mg AC PRN PO 09/03/16 22:45 10/03/16 22:44 09/03/16 23:04 500 MG Polyethylene (Miralax Powder Packet) 17 gm DAILY PO 09/06/16 09:00 10/06/16 08:59 Trazodone HCl (Desyrel Tab) 50 mg HS PO 09/05/16 21:00 10/05/16 20:59 09/05/16 21:01 50 MG Objective Vital Signs Date Time Temp Pulse Resp B/P Pulse Ox O2 Delivery O2 Flow Rate FiO2 09/06/16 15:14 36.5 85 18 90/53 96 Room Air 09/06/16 14:29 95 16 96 Room Air 09/06/16 12:45 36.8 61 141/90 09/06/16 12:15 75 121/63 09/06/16 12:00 66 146/89 09/06/16 11:45 91 125/75 09/06/16 11:30 61 157/81 09/06/16 11:15 91 129/76 09/06/16 11:00 54 158/82 09/06/16 10:45 90 170/95 09/06/16 10:30 91 140/76 09/06/16 10:15 88 146/87 09/06/16 10:00 88 153/73 09/06/16 09:45 78 161/76 09/06/16 09:21 82 145/81 09/06/16 09:18 100 Room Air 09/06/16 09:15 36.6 81 137/70 09/06/16 08:05 36.5 81 18 155/62 100 Room Air 09/06/16 08:00 96 Room Air 09/06/16 07:08 36.8 74 20 165/72 93 Room Air 09/06/16 03:41 81 16 96 Room Air 09/06/16 01:00 Room Air 09/05/16 22:53 36.9 89 22 162/78 98 Room Air 09/05/16 20:58 84 149/65 96 Room Air 09/05/16 19:49 74 16 98 Room Air Physical Exam General Appearance: WD/WN, no apparent distress Eyes: normal inspection, EOMI, sclerae normal ENT: normal ENT inspection, hearing grossly normal, pharynx normal Neck: supple, no adenopathy, no JVD, trachea midline Respiratory/Chest: chest non-tender, lungs clear, normal breath sounds, no respiratory distress, no accessory muscle use Cardiovascular: regular rate, rhythm, no edema, no gallop, no JVD, no murmur Abdomen: normal bowel sounds, non tender, soft, no organomegaly Extremities: no pedal edema, no calf tenderness, + pertinent finding (left arm in sling, tender to palpation) 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5 mmol/L Chloride Level 98 mmol/L Carbon Dioxide Level 27 mmol/L Anion Gap 11.0 mmol/L Blood Urea Nitrogen 38 mg/dl Creatinine 5.80 mg/dl Est Creatinine Clear Calc Drug Dose 12.0 ml/min Estimated GFR () 9.7 Estimated GFR (Non- 8.3 BUN/Creatinine Ratio 6.5 Random Glucose 83 mg/dl Calcium Level 8.1 mg/dl Phosphorus Level 3.9 mg/dl Magnesium Level 2.3 mg/dl Assessment and Plan Septic shock likely secondary to proctitis/colitis, improving received full course of Zosyn, no further antibiotics per ID vitals stable, labs stable Positive troponin, Echo showed EF of 35-40% demand ischemia, no evidence of NSTEMI holding aspirin due to bleeding and he is Mosque acute metabolic encephalopathy, resolved today -initial inciting factors appear to be pain, sepsis, pain meds, hospital stay superimposed on likely somewhat brittle baseline of health RML density, questionable pneumonia S/P 6 days of levofloxacin / vanco -ddx is HAP vs aspiration - follow status, aspiration precautions - resolved today Constipation: relieved with Miralax Insomnia: improved with Trazodone L humerus fx -sling, supportive care L hand pain - no fracture rib fractures (multiple, closed) -pain control as possible ESRD -on HD - continue per nephrology, had HD yesterday CAD, prior CABG -appears overall stable, see above in regards to troponin -continue current meds chronic systolic CHF, Echo showed EF of 35-40% -appearing compensated - follow closely w volume for hypotension, however ambulatory dysfunction/leg weakness -Continue PT/OT -likely will need rehab, referrals sent dyslipidemia -Continue statin BPH -Continue tamsulosin Severe anemia , study showed chronic diseases anemia and folic acid deficiency started on 1mg folic acid po daily DVT proph -heparin SQ referred to insurance for transfer to rehab denied, will ask for peer to peer tomorrow
[2016-09-07 07:46] LABS: HEMATOCRIT 29.8 % (42-52); MEAN CORPUSCULAR HGB CONC 31.2 g/dl (32-36); PLATELET COUNT 339 K/uL (130-400); RED BLOOD COUNT 3.87 M/uL (4.7-6.1); WHITE BLOOD COUNT 8.87 K/uL (4.8-10.8)
[2016-09-07 07:54] LABS: PARTIAL THROMBOPLASTIN RATIO 1.2
[2016-09-07] MEDS: CALCIUM ACETATE 667MG GELCAP PO SCH ×3 (08:00→17:11)
[2016-09-07] MEDS: BOOST BREEZE NUTRITION DRINK 1 BOX PO SCH ×2 (08:00→17:00)
[2016-09-07] MEDS: LACTOBACILLUS ACIDOPHILUS 1 GM PACK PO SCH ×3 (08:00→17:11)
[2016-09-07] MEDS: POLYETHYLENE (MIRALAX) 17 GM PACK PO SCH (09:00)
[2016-09-07] MEDS: METOPROLOL TARTRATE 25 MG TAB PO SCH ×2 (09:00→20:05)
[2016-09-07] MEDS ORDERED: TYL325X PO (14:27)
[2016-09-07] MEDS ORDERED: LPR25 PO (14:27)
[2016-09-07] MEDS ORDERED: DSY50 PO (14:27)
--- NOTE | 2016-09-07 14:37 | Discharge Instructions ---
Discharge Instructions Admission Reason for Admission: Left humerus fracture Discharge Discharge Diagnosis / Problem: Left proximal humerus fracture, ESRD on HD Discharge Goals Goal(s): Decrease discomfort, Improve function, Increase independence Activity Recommendations Activity Level: Assistance Required Therapies: Physical Therapy, Occupational Therapy Lifting Limitations: gradually increase as tolerated Exercise/Sports Limitations: as tolerated Shower/Bathe: no limitations . Additional Information Patient informed of condition: Yes Advance Directives: Yes DNR: No Level of Care: Skilled Communicable Disease: No Prognosis: Improving Oxygen at (LPM): no Courtney Catheter: No Instructions / Follow-Up Instructions / Follow-Up Medications: - TRAZODONE: added for sleep aide, could consider titrating up in near future if still having trouble sleeping, hesitant to start anything more sedating due to issues with encephalopathy - METOPROLOL: added for blood pressure control, tolerated well - TYLENOL: use for pain control, patient has issues with encephalopathy with narcotics so try to avoid, even had issues with Ultram Patient presented with left humerus fracture after a mechanical fall at [facility] where he tripped. He was evaluated by orthopedic surgery, the fracture was non- surgical and a sling was recommended. Please schedule a follow up visit with Ashley in 2 weeks. Keep arm in sling until evaluated by orthopedic surgery patient's hospital course was complicated by encephalopathy caused by combination of narcotics, ESRD, delirium and colitis/proctitis. Received full course of Zosyn for the infection. Mental status for past several days has been normal, oriented x 3 Constipation: resolved with Miralax, can use as needed Insomnia: attempting to use Trazodone FOLLOW UP - Physician at [facility] within one week of admission - HD on MWF, follows with Dr. Call - Dr. Johnson within one week of d/c from [facility] Current Hospital Diet Patient's current hospital diet: Renal Diet, AHA Diet (Heart Healthy) Discharge Diet Recommended Diet: AHA Diet (Heart Healthy), Renal Diet Pending Studies Studies pending at discharge: no Physician Orders On Transfer Vital Signs: per protocol POLST Discussion: Not Applicable Medical Emergencies . Who to Call and When: Medical Emergencies: If at any time you feel your situation is an emergency, please call 911 immediately. . Non-Emergent Contact Non-Emergency issues call your: Primary Care Provider Call Non-Emergent contact if: you have a fever, your pain is worsening, you have any medication questions . . "Provider Documentation" section prepared by Ricci Fung. Core Measure Problem Core Measures: None [place] Drug Monitoring Program Search Results: no issues identified
--- NOTE | 2016-09-07 15:50 | Discharge Summary ---
Discharge Summary Date of Service Sep 07, 2016. Discharge Summary Admission Date: Aug 17, 2016 at 16:21 Discharge Date: Sep 08, 2016 Discharge Disposition: [facility] facility ([facility]) Principal Diagnosis: Left humerus fracture from fall Problems/Secondary Diagnoses: Toxic encephalopathy due to pain, narcotics ESRD on HD Colitis and proctitis, resolved Insomnia Constipation Hypertension Immunizations: Have You Had Influenza Vaccine: Unknown History of Tetanus Vaccine?: Unknown History of Pneumococcal: Unknown History of Hepatitis B Vaccine: Unknown Procedures: Hemodialysis on MWF Consultations: Nephrology Orthopedic surgery Infectious disease Medication Reconciliation New Medications: Acetaminophen (Tylenol) 325 Mg Tab 650 MG PO Q4H PRN for Pain or Fever, #60 TAB 3 Refills Metoprolol Tartrate (Lopressor) 25 Mg Tab 25 MG PO BID, #60 TAB 4 Refills Trazodone HCl (Trazodone HCl) 50 Mg Tab 50 MG PO HS, #30 TAB 3 Refills Continued Medications: Atorvastatin (Lipitor) 20 Mg Tab 20 MG PO QPM Calcium Acetate (Phoslo 667 Mg) 667 Mg Cap 2 TABLETS PO TIDM, 0 Refills Cholecalciferol (Vitamin D3) 1,000 Unit Tab Unknown Dose PO UD for 90 Days, TAB 3 Refills Tamsulosin Hcl (Flomax) 0.4 Mg Cap 0.4 MG PO DAILY, CAP Discontinued Medications: Oxycodone/Acetaminophen 10MG/325MG (Percocet 10MG/325MG) Tab 1 TAB PO Q4H PRN for Pain, TAB Discharge Exam Patient feeling well today on 09/08, tolerating dialysis this morning Has some loose stools, back off on Miralax. Said that he slept a few hours last night with the Trazodone. discussed that [facility] was denied with the peer to peer, family and patient okay with [facility] Review of Systems: Constitutional: + fatigue, + weakness, No chills, No fever, No problem reported, No sweats, No weight loss Eyes: No diplopia, No discharge, No eye pain, No problem reported, No redness, No worsening of vision ENT: No dental problems, No hearing loss, No nasal symptoms, No problem reported, No sore throat, No tinnitus, No trouble swallowing, No unusual epistaxis Respiratory: No cough, No dyspnea at rest, No dyspnea on exertion, No hemoptysis, No problem reported, No shortness of breath, No sputum, No wheezing Cardiovascular: No PND, No chest pain, No claudication, No edema, No orthopnea, No palpitations, No problem reported Abdomen: + diarrhea, No GI bleeding, No constipation, No nausea, No pain, No problem reported, No vomiting Musculoskeletal: + joint pain (left arm, left hand), No calf pain, No muscle pain, No problem reported, No swelling Genitourinary - Male: No dysuria, No hematuria, No urinary frequency, No urinary urgency Neurologic: + balance problems, + problem reported (insomnia), + weakness, No memory loss, No numbness/tingling, No paralysis, No vertigo Psychiatric: + insomnia, No anhedonism, No anxiety, No depression symptoms, No problem reported, No substance abuse Integumentary: + problem reported (left arm bruising), No bleeding, No color change, No itch, No new/changing skin lesions, No rash Physical Exam: General Appearance: WD/WN, no apparent distress Eyes: normal inspection, EOMI, sclerae normal ENT: normal ENT inspection, hearing grossly normal, pharynx normal Neck: supple, no adenopathy, no JVD, trachea midline Respiratory/Chest: chest non-tender, lungs clear, normal breath sounds, no respiratory distress, no accessory muscle use Cardiovascular: regular rate, rhythm, no edema, no gallop, no JVD, no murmur , normal peripheral pulses Abdomen / GI: normal bowel sounds, non tender, soft, no organomegaly Extremities: no calf tenderness, normal capillary refill, no pedal edema, non-tender, pelvis stable, + pertinent finding (left arm in sling, tender, less ROM) 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 He was found to have a possible colitis/ proctitis and was treated with Zosyn for 7 days. He also had HD as scheduled on [facility]. Patient's main issue was weakness and he was not strong enough to return home. He was evaluated by therapy, recommended rehab, going to [facility]. Septic shock likely secondary to proctitis/colitis, completely resolved received full course of Zosyn, no further antibiotics per ID vitals stable, labs stable for several days Positive troponin, Echo showed EF of 35-40% demand ischemia, no evidence of NSTEMI holding aspirin due to bleeding and he is Yarsanism acute metabolic encephalopathy, resolved all week -initial inciting factors appear to be pain, sepsis, pain meds, hospital stay superimposed on likely somewhat brittle baseline of health RML density, questionable pneumonia S/P 6 days of levofloxacin / vanco -ddx is HAP vs aspiration - follow status, aspiration precautions - breathing room air all week, no respiratory distress or cough Constipation: relieved with Miralax that was scheduled, would recommend only using as needed Insomnia: improved with Trazodone 50mg, could consider increasing in the future would avoid sedating drugs like Ativan or Ambien due to being prone to encephalopathy L humerus fx -sling, supportive care - no surgery per orthopedics - follow up with Yinka diaz in 2-3 weeks, call for appointment - no narcotics, gets encephalopathic L hand pain - no fracture rib fractures (multiple, closed) -pain control as possible ESRD -on HD - continue per nephrology on MWF CAD, prior CABG -appears overall stable, see above in regards to troponin -continue current meds chronic systolic CHF, Echo showed EF of 35-40% -appearing compensated - follow closely w volume for hypotension, however ambulatory dysfunction/leg weakness -Continue PT/OT -likely will need rehab, referrals sent dyslipidemia -Continue statin BPH -Continue tamsulosin Severe anemia , study showed chronic diseases anemia and folic acid deficiency started on 1mg folic acid po daily DVT proph -heparin SQ will d/c to SNF for rehab Total Time Spent: Greater than 30 minutes This includes examination of the patient, discharge planning, medication reconciliation, and communication with other providers. Discharge Instructions Please refer to the electronic Patient Visit Report (Discharge Instructions) for additional information. Follow-Up Physician at [facility] within one week Additional Copies To Dayanna Millan MD; Virgil Johnson M.D. (MEDICAL); [facility]
[2016-09-07] MEDS ORDERED: ALBUT/IPRATROP 3MG/0.5MG NEB 3 ML VIAL INH PRN (16:00)
[2016-09-07] MEDS: ATORVASTATIN 20 MG TAB PO SCH (20:04)
[2016-09-07] MEDS: TRAZODONE HCL 50 MG TAB PO SCH (20:04)
[2016-09-08] VITALS (20 sets, daily range): BP systolic 91–134; BP diastolic 45–98; PULSE 52–92; TEMP 36.7–37; O2SAT 95–96
[2016-09-08] MEDS: HEPARIN SOD 5000 UNIT/0.5 ML CARP SQ SCH ×2 (06:00→12:54)
[2016-09-08] MEDS: BOOST BREEZE NUTRITION DRINK 1 BOX PO SCH (07:52)
[2016-09-08] MEDS: CALCIUM ACETATE 667MG GELCAP PO SCH ×2 (07:53→12:54)
[2016-09-08] MEDS: POLYETHYLENE (MIRALAX) 17 GM PACK PO SCH (07:53)
[2016-09-08] MEDS: LACTOBACILLUS ACIDOPHILUS 1 GM PACK PO SCH ×2 (08:00→12:00)
[2016-09-08] MEDS ORDERED: HEPARIN SOD (PORCINE) 1000 UNIT/ML 10 ML VIAL IV SCH (08:00)
[2016-09-08] MEDS ORDERED: EPOETIN ALFA INJ 12,000 UNITS in SYRINGE 0 ML IV. SCH (08:00)
[2016-09-08] MEDS: HEPARIN SOD (PORCINE) 1000 UNIT/ML 10 ML VIAL IV SCH ×3 (08:00→10:00)
[2016-09-08] MEDS ORDERED: EPOETIN ALFA 10,000 UNITS/ML VIAL IV. ONE (08:00)
[2016-09-08 08:04] LABS: HEMATOCRIT 29.2 % (42-52); MEAN CELL VOLUME 76.6 fL (80-100); MEAN CORPUSCULAR HEMOGLOBIN 24.1 pg (25-34); MEAN CORPUSCULAR HGB CONC 31.5 g/dl (32-36); MEAN PLATELET VOLUME 9.6 fL (7.4-10.4); PLATELET COUNT 312 K/uL (130-400); RED BLOOD COUNT 3.81 M/uL (4.7-6.1); WHITE BLOOD COUNT 7.95 K/uL (4.8-10.8)
[2016-09-08 08:19] LABS: PARTIAL THROMBOPLASTIN RATIO 1.2
[2016-09-08 08:41] LABS: BUN/CREATININE RATIO 7.3 (10-20); CALCIUM 8.5 mg/dl (8.5-10.1); CREATININE 5.9 mg/dl (0.60-1.40)
--- NOTE | 2016-09-08 09:47 | Dialysis Progress Note ---
Nephrology Dialysis Note Date of Service: Sep 08, 2016. Subjective generalized itch and this is CC; no n/v, no dypsnea; L arm still painful but mostly controlled Objective Date Time Temp Pulse Resp B/P Pulse Ox O2 Delivery O2 Flow Rate FiO2 09/08/16 09:30 89 113/58 09/08/16 09:15 82 115/60 09/08/16 09:00 84 129/60 09/08/16 08:45 81 114/60 09/08/16 08:36 83 117/57 09/08/16 08:20 36.9 88 106/61 09/08/16 07:47 Room Air 09/08/16 07:20 36.8 87 18 132/76 95 Room Air 09/08/16 00:36 37.0 85 18 134/69 96 Room Air 09/08/16 00:00 Room Air 09/07/16 20:21 Room Air 09/07/16 20:01 88 139/99 09/07/16 16:21 36.3 87 20 119/68 96 Physical Exam: General Appearance: WD/WN, no apparent distress, + obese, on RA Eyes: EOMI ENT: hearing grossly normal Neck: supple Respiratory/Chest: + decreased breath sounds, no wheezes this am Cardiovascular: RRR, no edema Abdomen: normal bowel sounds, non tender, soft Extremities: + pertinent finding (LUE AVF + t/b; L arm in HD not in sling) Neurologic/Psych: alert, normal mood/affect, oriented x 3 Skin: no jaundice, warm/dry, no rash Current Inpatient Medications Medications (Trade) Dose Ordered Sig/Daniel Route Start Time Stop Time Status Last Admin Dose Admin Atorvastatin Calcium (Lipitor Tab) 20 mg QPM PO 08/17/16 21:00 09/16/16 20:59 09/07/16 20:04 20 MG Calcium Acetate (Phoslo Cap) 1,334 mg TIDM PO 08/18/16 08:30 09/17/16 08:29 09/08/16 07:53 1,334 MG Acetaminophen (Tylenol Tab) 650 mg Q4H PRN PO 08/17/16 16:45 09/16/16 16:44 09/05/16 10:41 650 MG Ondansetron HCl (Zofran Inj) 4 mg Q6H PRN IV 08/17/16 16:45 09/16/16 16:44 09/01/16 13:18 4 MG Tramadol HCl 50 mg 50 mg Q4H PRN PO 08/21/16 16:45 09/20/16 16:44 Future Hold 08/22/16 14:10 50 MG Acetaminophen/ Empty Bag (Ofirmev IV/ Empty Iv Bag 100ml) 65 ml @ 260 mls/hr Q6H PRN IV 08/21/16 20:30 09/20/16 20:29 09/05/16 02:46 260 MLS/HR Enteral Nutritional Formula (Boost Breeze Nutritional Drink) 1 box BIDM PO 08/23/16 17:45 09/22/16 17:44 09/04/16 15:55 1 BOX Lactulose (Chronulac Syrup) 20 gm Q6H PRN PO 08/25/16 11:30 09/24/16 11:29 08/25/16 14:22 20 GM Lactobacillus Acidophilus (Lactinex Granules Pack) 1 gm TIDM PO 08/28/16 16:45 09/27/16 16:44 09/07/16 17:11 1 GM Nitroglycerin (Nitrostat Tab) 0.4 mg Q5M PRN SL 08/31/16 22:30 09/30/16 22:29 Metoprolol Tartrate (Lopressor Tab) 25 mg BID PO 09/01/16 21:00 10/01/16 20:59 09/07/16 20:05 25 MG Heparin Sodium (Porcine) (Heparin Sq 5000 Unit/0.5ml) 5,000 unit Q8 SQ 09/03/16 08:00 10/03/16 07:59 09/07/16 20:08 5,000 UNIT Calcium Carbonate (Tums Chew Tab) 500 mg AC PRN PO 09/03/16 22:45 10/03/16 22:44 09/03/16 23:04 500 MG Polyethylene (Miralax Powder Packet) 17 gm DAILY PO 09/06/16 09:00 10/06/16 08:59 Trazodone HCl (Desyrel Tab) 50 mg HS PO 09/05/16 21:00 10/05/16 20:59 09/07/16 20:04 50 MG Albuterol/ Ipratropium (Duoneb) 3 ml Q4 PRN INH 09/07/16 16:00 10/07/16 15:59 Heparin Sodium (Porcine) (Heparin Iv Bolus) 1,000 unit TODAY@0800 IV 09/08/16 08:00 09/08/16 23:59 Heparin Sodium (Porcine) 400 unit 400 unit TODAY@0800,0900,1000 IV 09/08/16 08:00 09/08/16 23:59 Epoetin Andrei/ Syringe (Procrit Inj/ Syringe) 0.6 ml @ 1 mls/min TODAY@0800 IV. 09/08/16 08:00 09/08/16 23:59 Last 24 Hours Test 09/08/16 07:50 White Blood Count 7.95 K/uL Red Blood Count 3.81 M/uL Hemoglobin 9.2 g/dL Hematocrit 29.2 % Mean Corpuscular Volume 76.6 fL Mean Corpuscular Hemoglobin 24.1 pg Mean Corpuscular Hemoglobin Concent 31.5 g/dl RDW Standard Deviation 44.9 fL RDW Coefficient of Variation 16.7 % Platelet Count 312 K/uL Mean Platelet Volume 9.6 fL Activated Partial Thromboplast Time 30.0 SECONDS Partial Thromboplastin Ratio 1.2 Sodium Level 132 mmol/L Potassium Level 4.0 mmol/L Chloride Level 96 mmol/L Carbon Dioxide Level 26 mmol/L Anion Gap 10.0 mmol/L Blood Urea Nitrogen 43 mg/dl Creatinine 5.90 mg/dl Est Creatinine Clear Calc Drug Dose 11.8 ml/min Estimated GFR () 9.5 Estimated GFR (Non- 8.2 BUN/Creatinine Ratio 7.3 Random Glucose 104 mg/dl Calcium Level 8.5 mg/dl Assessment & Plan 81 yo male with esrd who fell and had humerus fracture/rib fractures. has had complicated hospital course with nstemi, metabolic encephalopathy, possible aspiration pneumonitis, proctitis. pt overall much improved compared to admission. however still very weak. ESRD -for HD today w/ gentle UF d/t borderline blood pressures -cont [facility] meds >recommend give pt pain meds 30 min before HD; may need alternate access for dialysis if this is not workable Anemia of esrd -epo to keep hgb >10 ambulatory dysfunction and L humeral fracture per primary service and ortho; awaiting placement Appreciate consultation; will follow with you.
[2016-09-08] MEDS: METOPROLOL TARTRATE 25 MG TAB PO SCH (12:53)
[2016-10-27] MEDS ORDERED: CALC667C4 PO (07:48)
[2016-10-27] MEDS ORDERED: MOML PO (07:48)
[2016-10-27] MEDS ORDERED: HYDR25SU20 PR (07:48)
[2016-10-27] MEDS ORDERED: TAMS0.4C38 PO (07:48)
[2016-10-27] MEDS ORDERED: LOSA25TA18 PO (07:48)
[2016-10-27] MEDS ORDERED: PSYL48.59 PO (07:48)
[2016-10-27] MEDS ORDERED: METO50TA7 PO (07:48)
[2016-10-27] MEDS ORDERED: TRAZ50TA35 PO (07:48)
[2016-10-27] MEDS ORDERED: ATOR-22 PO (07:48)
[2016-10-27] MEDS ORDERED: DICY10CA55 PO (07:48)
[2016-10-27] MEDS ORDERED: SODIENE PR (07:48)
[2016-10-27] MEDS ORDERED: ACET325T96 PO (07:48)
[2016-10-27] MEDS ORDERED: CHOL1000 PO (07:48)
[2016-10-27] MEDS ORDERED: SUPPLEMENT SHAKE PO (07:48)
[2016-10-27] MEDS ORDERED: B-CO1CAP17 PO (07:48)
[2016-10-27] MEDS ORDERED: BISA10SU38 PR (07:48)
[2016-10-27] MEDS ORDERED: OXYC1TAB3 PO (07:48)
[2017-01-06] MEDS ORDERED: METO1TAB31 PO (21:25)
== END 2016-09-08 15:02 | DRG 183 ==
LOC: ENRESERVDT → ENRESERVTM → EDBD 11:32 → C.EDC 11:34 → C.MSN 16:21 → EDBEDREQ 16:30 → C.2T 08-27 16:41 → C.MS2W 09-03 15:28
PROVIDERS: ADMIT Internal Medicine; ATTEND Internal Medicine
DX: S22.42XA Multiple fractures of ribs, left side, initial encounter for closed fracture (principal); N18.6 End stage renal disease; G93.49 Other encephalopathy; G93.41 Metabolic encephalopathy; A41.9 Sepsis, unspecified organism; R65.21 Severe sepsis with septic shock; J18.9 Pneumonia, unspecified organism; S42.292A Other displaced fracture of upper end of left humerus, initial encounter for closed fracture; I13.2 Hypertensive heart and chronic kidney disease with heart failure and with stage 5 chronic kidney disease, or end stage renal disease; I50.22 Chronic systolic (congestive) heart failure; I24.8 Other forms of acute ischemic heart disease; K62.89 Other specified diseases of anus and rectum; K52.9 Noninfective gastroenteritis and colitis, unspecified; R26.89 Other abnormalities of gait and mobility; T40.605A Adverse effect of unspecified narcotics, initial encounter; K59.00 Constipation, unspecified; I25.10 Atherosclerotic heart disease of native coronary artery without angina pectoris; E78.5 Hyperlipidemia, unspecified; N40.0 Benign prostatic hyperplasia without lower urinary tract symptoms; G47.00 Insomnia, unspecified; D63.1 Anemia in chronic kidney disease; E66.9 Obesity, unspecified; Z79.899 Other long term (current) drug therapy; Z99.2 Dependence on renal dialysis; Z95.1 Presence of aortocoronary bypass graft; Z95.2 Presence of prosthetic heart valve; Z95.0 Presence of cardiac pacemaker; Z68.35 Body mass index [BMI] 35.0-35.9, adult; Z82.49 Family history of ischemic heart disease and other diseases of the circulatory system; Z82.3 Family history of stroke; W18.09XA Striking against other object with subsequent fall, initial encounter; Y92.512 Supermarket, store or market as the place of occurrence of the external cause; Y93.01 Activity, walking, marching and hiking; Y99.8 Other external cause status; S00.81XA Abrasion of other part of head, initial encounter; W01.0XXA Fall on same level from slipping, tripping and stumbling without subsequent striking against object, initial encounter; Y92.89 Other specified places as the place of occurrence of the external cause; Z87.442 Personal history of urinary calculi; Z87.891 Personal history of nicotine dependence; Z84.1 Family history of disorders of kidney and ureter

== ENCOUNTER → 2016-09-25 | Outpatient (CLI) | payer OTHER ==
[~2016-09-25] MED LIST changes: +ACET325T96 PO; +ATOR-22 PO; +B-CO1CAP17 PO; +BISA10SU38 PR; +DICY10CA55 PO; +DSY50 PO; +HYDR25SU20 PR; +LOSA25TA18 PO; +LPR25 PO; +METO1TAB31 PO; +METO50TA7 PO; +MOML PO; +NTRGSL/4 UT; -OXYC-106 PO; +OXYC1TAB3 PO; +PSYL48.59 PO; +SODIENE PR; +SUPPLEMENT SHAKE PO; +TRAZ50TA35 PO; +TRMCR130WC TOP; +TYL325X PO
--- NOTE | 2016-10-11 10:41 | CODING QUERY MEDICAL NECESSITY ---
CQSUPPORTING DIAGNOSIS NEEDED A supporting diagnosis is required for the test/procedure performed on this patient in order for us to be reimbursed by the patient's insurance. Please provide a supporting diagnosis for the following test/procedure listed below next to the test name along with your signature. *If there is no additional diagnosis for this patient that would support the following test/procedure please document that below next to the test/procedure. Test(s)/Procedure(s) that require a supporting diagnosis: DOS 09/25/16 VITAMIN D TEST DONE FOR [facility] Provider Signature: Date: Thank you Bhumi Ricci Health Information Management Once completed, please kindly fax back to [phone] For questions please call [phone]
--- NOTE | 2016-10-11 10:46 | CODING QUERY MEDICAL NECESSITY ---
CQSUPPORTING DIAGNOSIS NEEDED A supporting diagnosis is required for the test/procedure performed on this patient in order for us to be reimbursed by the patient's insurance. Please provide a supporting diagnosis for the following test/procedure listed below next to the test name along with your signature. *If there is no additional diagnosis for this patient that would support the following test/procedure please document that below next to the test/procedure. Test(s)/Procedure(s) that require a supporting diagnosis: DOS 09/25/16 VITAMIN D TEST DONE FOR [facility] ORDER SIGNED BY DR RODRIGUEZ Provider Signature: Date: Thank you Bhumi Rcici Health Information Management Once completed, please kindly fax back to [phone] For questions please call [phone]
== END ==
LOC: C.LABCC 08:04
PROVIDERS: ATTEND Internal Medicine
DX: E78.5 Hyperlipidemia, unspecified (principal); N18.9 Chronic kidney disease, unspecified; M85.80 Other specified disorders of bone density and structure, unspecified site

== ENCOUNTER → 2016-11-02 | Day surgery (SDC) | payer OTHER ==
[2016-10-27 07:48] VITALS: BMI 25.0
[~2016-11-02] VITALS: Ht 193 cm; Wt 96.8 kg
[~2016-11-02] MED LIST changes: -ATOR-54 PO; -DSY50 PO; +LIDOCAINE HCL 2% 2 ML VIAL (20MG/ML) ONE; -LPR25 PO; +METO-478 PO; -METO1TAB31 PO; +PHENYLEPHRINE 100MCG/ML 5ML SYR ONE; +PROPOFOL IV EMULSION 10 MG/ML 20 ML VIAL IV ONE; +SODIUM CHLORIDE 0.9% 500ML 500 ML IV ONE; -TYL325X PO
[2016-11-02 09:31] VITALS: Ht 193 cm; Wt 96.8 kg
--- NOTE | 2016-11-02 10:15 | Endo History and Physical ---
History & Physical Date of Service: Nov 02, 2016. Chief Complaint: PROCTITIS Referring Physician: DR. YORK/MICHAEL History of Present Illness Hx of proctitis Past Surgical History Hx Cardiac Surgery: Yes (AVR AND CABG- 1 VESSEL) Hx Internal Defibrillator: No Hx Pacemaker: Yes Hx Abdominal Surgery: Yes (INGUINAL HERNIA) Hx of Implantable Prosthesis: No Hx Post-Op Nausea and Vomiting: No Hx Cancer Surgery: No Hx Thoracic Surgery: No Hx Orthopedic: No Hx Urinary Tract Surgery: No Family History None Social History Smoking Status: Unknown if Ever Smoked Hx Substance Use: Yes (SEE MED REC) Hx Alcohol Use: No Allergies Coded Allergies: NO KNOWN DRUG ALLERGIES (Verified Allergy, Unknown, ., 11/02/16) Current Medications Reported Home Medications Medications Dose Route/Sig Max Daily Dose Days Date Category Dose Instructions [Supplement Shake] 1 Dose PO QPM 10/27/16 Reported Anusol-Hc (Hydrocortisone Acetate (Rectal) 25 Mg Sup 1 Supp [place] QPM 7 10/27/16 Reported Bentyl (Dicyclomine Hcl) 10 Mg Cap 10 Mg PO BID 10/27/16 Reported Roxicodone Ir (Oxycodone HCl) 5 Mg Tab 5 Mg PO Q6H PRN 10/27/16 Reported Fleet Enema (Sodium Phosphate/Biphosphate) Yazmin 1 Ea [place] DAILY PRN 10/27/16 Reported Dulcolax (Bisacodyl) 10 Mg Sup 1 Supp [place] DAILY PRN 10/27/16 Reported Milk Of Magnesia (Magnesium Hydroxide) 30 Ml Susp 30 Ml PO DAILY PRN 10/27/16 Reported Tylenol (Acetaminophen) 325 Mg Tab 650 Mg PO Q6H PRN 10/27/16 Reported Metamucil (Psyllium) 48.57 % Pow 1 Tsp PO QAM 10/27/16 Reported Vitamin D3 (Cholecalciferol) 1,000 Unit Tab 1 Tab PO QAM 90 10/27/16 Reported Trazodone (Trazodone HCl) 50 Mg Tab 50 Mg PO HS 10/27/16 Reported Flomax (Tamsulosin Hcl) 0.4 Mg Cap 0.4 Mg PO QAM 10/27/16 Reported Nephrocaps (Vitamin B Complex/Vit C/Folic Acid) Cap 1 Cap PO DIRECTED 10/27/16 Reported TAKE 1 CAP IN AM 4XWK (NON DIALYSIS DAYS) TAKE 1 CAP IN PM 3XWK (DIALYSIS DAYS) Phoslo 667 Mg (Calcium Acetate) 667 Mg Cap 1 Cap PO TID 90 10/27/16 Reported Lipitor (Atorvastatin Calcium) 20 Mg Tab 20 Mg PO QPM 10/27/16 Reported Cozaar (Losartan Potassium) 25 Mg Tab 25 Mg PO QAM 10/27/16 Reported Toprol-Xl (Metoprolol Succinate) 50 Mg Tabcr 50 Mg PO QAM 10/27/16 Reported Vital Signs Weight (Kilograms): 96.82 Height (Feet): 6 Height (Inches): 4 Date Time Temp Pulse Resp B/P Pulse Ox O2 Delivery O2 Flow Rate FiO2 11/02/16 09:33 36.7 76 20 131/55 97 Physical Exam General Appearance: no apparent distress Respiratory/Chest: Auscultation: breath sounds normal Abdomen: Inspection & Palpation: soft Liver: non-tender Assessment and Plan stable for colonoscopy
--- NOTE | 2016-11-02 10:49 | Discharge Instructions ---
Endoscopy Patient Instructions Date / Procedure(s) Performed Nov 02, 2016. Colonoscopy Allergy Information Coded Allergies: NO KNOWN DRUG ALLERGIES (Verified Allergy, Unknown, ., 11/02/16) Discharge Date / Findings Nov 02, 2016. rectal lesion/colon polyps/diverticulosis Medication Instructions Stopped Medication(s): LIVES IN [facility] Provider Instructions Activity Restrictions - No exercising or heavy lifting for 24 hours. - Do not drink alcohol the day of the procedure. - Do not drive a car or operate machinery until the day after the procedure. - Do not make any important decisions or sign important papers in 24 hours after the procedure. Following Day: - Return to full activity which may include returning to work/school. Diet Start your diet with liquids and light foods (jello, soup, juice, toast). Then eat your usual diet if not nauseated. Treatment For Common After Affects For mild abdominal pain, bloating, or excessive gas: - Rest - Eat lightly - Lie on right side Follow-Up Information Follow-up with DR. YORK/MICHAEL as scheduled Anesthesia Information What You Should Know You have had a procedure that required some medicine to reduce anxiety and discomfort. This treatment is called moderate sedation. After receiving the treatment, you may be sleepy, but you will be able to breathe on your own. The effects of the treatment may last for several hours. Follow these instructions along with Activity/Diet recommendations noted above: * Do NOT do anything where dizziness or clumsiness would be dangerous. * Rest quietly at home today, then you can be up and about tomorrow. * Have a responsible person stay with you the rest of today. * You may have had an I.V. today. If so, you may take the dressing off later today. Recommendations Call your doctor if: * Trouble breathing * Continuous vomiting for more than 24 hours * Temperature above 101 degrees * Severe abdominal pain or bloating * Pain not relieved by pain medicine ordered * There is increased drainage or redness from any incision * A large amount of rectal bleeding greater than 2-3 tablespoons. (If you had a polyp/s removed or have hemorrhoids, a small amount of blood - from the rectum is to be expected.) * You have any unanswered questions or concerns. IN THE EVENT OF A SERIOUS EMERGENCY, GO TO THE NEAREST EMERGENCY ROOM Your discharge instructions were prepared by provider Felipe Shoemaker. Patient Instructions Signature Page Javier Poon Patient (or Guardian) Signature/Date: I have read and understand the instructions given to me by my caregivers. Caregiver/RN/Doctor Signature/Date: The above-named patient and/or guardian has received patient instructions on this date. + Original Patient Signature Page (only) stays with chart. Please make copy for patient.
--- NOTE | 2016-11-02 10:58 | GI REPORT ---
Procedure Date: 11/02/2016 10:02 AM Procedure: Colonoscopy Indications: Abnormal CT of the GI tract Medicines: See the Anesthesia note for documentation of the administered medications Complications: No immediate complications. Estimated Blood Loss: Estimated blood loss was minimal. Procedure: Pre-Anesthesia Assessment: - Prior to the procedure, a History and Physical was performed, and patient medications, allergies and sensitivities were reviewed. The patient's tolerance of previous anesthesia was reviewed. - The risks and benefits of the procedure and the sedation options and risks were discussed with the patient. All questions were answered and informed consent was obtained. - Patient identification and proposed procedure were verified prior to the procedure by the physician and the nurse. The procedure was verified in the pre-procedure area. - Pre-procedure physical examination revealed no contraindications to sedation. - After reviewing the risks and benefits, the patient was deemed in satisfactory condition to undergo the procedure. After I obtained informed consent, the scope was passed under direct vision. Throughout the procedure, the patient's blood pressure, pulse, and oxygen saturations were monitored continuously. The scope was introduced through the anus and advanced to the cecum, identified by appendiceal orifice and ileocecal valve. The colonoscopy was performed without difficulty. The patient tolerated the procedure well. The quality of the bowel preparation was good. Findings: The perianal exam was abnormal, the was polypoid lesion felt. Three semi-pedunculated polyps were found in the cecum. The polyps were medium in size. These polyps were removed with a hot snare. Resection and retrieval were complete. Verification of patient identification for the specimen was done by the physician and nurse using the patient's name and medical record number. Estimated blood loss was minimal. A 8 mm polyp was found at 20 cm proximal to the anus. The polyp was semi-pedunculated. The polyp was removed with a hot snare. Resection and retrieval were complete. Verification of patient identification for the specimen was done by the physician and nurse using the patient's name and medical record number. Estimated blood loss was minimal. A medium-sized polypoid lesion was found in the rectum. The lesion was frond-like/villous. Oozing was present. Biopsies were taken with a cold forceps for histology. Verification of patient identification for the specimen was done by the physician and nurse using the patient's name and medical record number. Estimated blood loss was minimal. Multiple small and large-mouthed diverticula were found in the sigmoid colon and in the descending colon. Impression: - Abnormal perianal exam consistent with endoscopic findings. - Three medium polyps in the cecum, removed with a hot snare. Resected and retrieved. - One 8 mm polyp at 20 cm proximal to the anus, removed with a hot snare. Resected and retrieved. - Rule out malignancy, polypoid lesion in the rectum. Biopsied. - Diverticulosis in the sigmoid colon and in the descending colon. Recommendation: - Await pathology results. - May need referral to colorectal surgery. - Discharge patient to home. Felipe Shoemaker M.D. Felipe Shoemaker MD 11/02/2016 10:57:04 AM This report has been signed electronically. Note Initiated On: 11/02/2016 10:02 AM I attest to the content of the Intraoperative Record and orders documented therein, exceptions below
--- NOTE | 2016-11-02 11:17 | Anesthesiology Progress Note ---
Anesthesia Post Op Note Date & Time Nov 02, 2016 at 11:16 Vital Signs Pain Intensity: 0 Vital Signs Past 12 Hours Date Time Temp Pulse Resp B/P Pulse Ox O2 Delivery O2 Flow Rate FiO2 11/02/16 10:55 71 20 139/65 99 11/02/16 09:33 36.7 76 20 131/55 97 Notes Mental Status: alert / awake / arousable, participated in evaluation Pt Amnestic to Procedure: Yes Nausea / Vomiting: adequately controlled Pain: adequately controlled Airway Patency, RR, SpO2: stable & adequate BP & HR: stable & adequate Hydration State: stable & adequate Anesthetic Complications: no major complications apparent
[2016-11-02 11:25] VITALS: BP 166/68; PULSE 72; O2SAT 95
== END | disposition home or self-care (01) ==
LOC: C.GI 09:10
PROVIDERS: ATTEND Internal Medicine Gastroenterology
DX: D12.6 Benign neoplasm of colon, unspecified (principal); K62.89 Other specified diseases of anus and rectum; K57.30 Diverticulosis of large intestine without perforation or abscess without bleeding; Z95.1 Presence of aortocoronary bypass graft

== ENCOUNTER 2017-01-06 16:49 | Inpatient (IN) | payer OTHER ==
[~2017-01-06] VITALS: Ht 175.3 cm; Wt 97.0 kg
[~2017-01-06 16:49] MED LIST changes: -LIDOCAINE HCL 2% 2 ML VIAL (20MG/ML) ONE; -METO-478 PO; -NTRGSL/4 UT; -PHENYLEPHRINE 100MCG/ML 5ML SYR ONE; -PROPOFOL IV EMULSION 10 MG/ML 20 ML VIAL IV ONE; -SODIUM CHLORIDE 0.9% 500ML 500 ML IV ONE; -TRMCR130WC TOP
--- NOTE | 2017-01-06 17:28 | DIAGNOSTIC IMAGING REPORT ---
LEFT HIP 2 VIEWS CLINICAL HISTORY: Fall with left hip pain. FINDINGS: AP and frog-leg views of left hip are compared to study dated 08/17/2016. The skeletal structures are osteopenic. There is no radiographic evidence of left hip fracture. The visualized left hemipelvis appears intact. Mild arthritic change and joint space narrowing is seen in the left hip. The overlying soft tissues are within normal limits. There is atherosclerotic calcification of the left femoral artery. A surgical clip is present in the left upper thigh. IMPRESSION: Osteopenia and arthritic change as above. There is no radiographic evidence of left hip fracture. Electronically signed by: Star Aleman M.D. 01/06/2017 5:26 PM Dictated Date/Time: 01/06/2017 5:24 PM
--- NOTE | 2017-01-06 18:46 | DIAGNOSTIC IMAGING REPORT ---
CT SCAN OF THE LEFT HIP WITHOUT IV CONTRAST CLINICAL HISTORY: Fall with left hip pain. COMPARISON STUDY: Radiographs of left hip dated 01/06/2017 and 08/17/2016. Pelvic CT dated 08/29/16. TECHNIQUE: CT scan of left hip was performed from the bony pelvis to the proximal femoral shaft. Images reviewed in the axial, sagittal, coronal planes. IV contrast was not administered for this examination. CT DOSE: 902.06 mGy. cm FINDINGS: The skeletal structures are osteopenic. There are acute and nondistracted left anterior pubic ring fractures. Cortical irregularity of the left inferior pubic ring may also represent nondistracted fracture. No additional fracture is identified. The left proximal femur is intact. Mild degenerative change is noted in the left hip. There is intrapelvic extraperitoneal hemorrhage identified around the pubic ring fractures. No large hematoma is identified. No intramuscular or intraperitoneal hemorrhage is seen. There is advanced atherosclerotic calcification of the visualized iliac and femoral arteries. Diverticulosis is noted in the sigmoid colon and there is rectosigmoid fecal impaction. The prostate gland is mildly enlarged. The bladder wall appears thickened and trabeculated suggesting chronic outlet obstruction. No left inguinal adenopathy is identified. IMPRESSION: 1. There are acute and nondistracted anterior left pubic ring fractures with trace surrounding extraperitoneal hemorrhage. There is also likely a left inferior pubic ring fracture. 2. No additional fracture is seen. The left proximal femur is intact. 3. No large hematoma is identified. 4. Prostatomegaly with evidence of chronic bladder outlet obstruction. 5. Additional findings as above. Dictated: 01/06/2017 6:03 PM Transcribed: 01/06/2017 6:46 PM [email or web address] Electronically signed by: Star Aleman M.D. 01/06/2017 6:50 PM Dictated Date/Time: 01/06/2017 6:03 PM
[2017-01-06] MEDS ORDERED: ONDANSETRON INJ 2 MG/ML 2 ML VIAL IV STA (18:49)
[2017-01-06] MEDS ORDERED: MoRPHine SULFATE 4 MG/ML 1 ML CARP\\VIAL IV PRN (19:00)
--- NOTE | 2017-01-06 19:19 | EMERGENCY ROOM VISIT NOTE ---
History Report prepared by Ynes: Chapin Ibanez Under the Supervision of: Dr. Khalif Solorzano M.D. First contact with patient: 16:58 Chief Complaint: FALL Stated Complaint: FALL/ LEG PAIN History of Present Illness The patient is a 81 year old male who presents to the Emergency Room with complaints of intermittent left upper leg pain s/p fall occurring this morning. He states that he rolled out of bed and landed on his left hip. He states that his pain is only present when moving his leg. The patient has no history of hip or knee replacements. He did not hit his head or lose consciousness during the fall. He states that he has been unable to walk on his leg. Pt denies LOC, headache, visual changes, neck pain, chest pain, breathing difficulties, nausea , vomiting, abdominal pain, back pain, numbness, weakness, open wounds, active bleeding, or other complaints. Source of History: patient Onset: This morning Position: leg (left upper ) Timing: intermittent Modifying Factors (Worsening): movement Associated Symptoms: No LOC, No neck pain, No chest pain, No abdominal pain Review of Systems See HPI for pertinent positives and negatives. A total of ten systems were reviewed and were otherwise negative. 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 (2) ASCVD (arteriosclerotic cardiovascular disease) (3) BPH (benign prostatic hyperplasia) (4) Dyslipidemia (5) ESRD on dialysis (6) HTN (hypertension) (7) Leukocytosis (8) Pacemaker (9) Renal calculi Surgical Problems: (1) Aortic valve replaced (2) H/O inguinal hernia repair (3) History of cataract surgery (4) History of tonsillectomy (5) Hx of CABG Social History Problems: (1) Refusal of blood transfusions as patient is Rastafari Family History FHx: cancer FHx: heart disease FHx: hypertension FHx: kidney disease Social History Smoking Status: Unknown if Ever Smoked Alcohol Use: none Drug Use: none Marital Status: Housing Status: lives with significant other Occupation Status: retired Current/Historical Medications Scheduled Atorvastatin (Lipitor), 20 MG PO QPM Calcium Acetate (Phoslo 667 Mg), 1 CAP PO TID Cholecalciferol (Vitamin D3), 1 TAB PO QAM Psyllium (Metamucil), 1 TSP PO UD Vitamin B Cmplx/Vitc/Folic Ac (Nephrocaps), 1 CAP PO DIRECTED Scheduled PRN Oxycodone Immediate Rel Tab (Roxicodone Ir), 5 MG PO Q6H PRN for Pain Allergies Coded Allergies: NO KNOWN DRUG ALLERGIES (Verified Allergy, Unknown, ., 01/06/17) Physical Exam Vital Signs Date Time Temp Pulse Resp B/P (MAP) Pulse Ox O2 Delivery O2 Flow Rate FiO2 01/06/17 16:59 36.6 99 20 151/89 95 Room Air Physical Exam GENERAL: Awake, alert, well-appearing, in no distress HENT: Normocephalic, atraumatic. Oropharynx unremarkable. EYES: Normal conjunctiva. Sclera non-icteric. NECK: Supple. No nuchal rigidity. FROM. No JVD. RESPIRATORY: Clear to auscultation. CARDIAC: Regular rate, normal rhythm. Extremities warm and well perfused. Pulses equal. ABDOMEN: Soft, non-distended. No tenderness to palpation. No rebound or guarding. No masses. RECTAL: Deferred. MUSCULOSKELETAL: Chest examination reveals no tenderness. The back is symmetrical on inspection without obvious abnormality. There is no CVA tenderness to palpation. No joint edema. LOWER EXTREMITIES: Calves are equal size bilaterally and non-tender. No discoloration. Tenderness over the left greater trochanter. Mild pain with internal rotation. No shortening. ROM limited secondary to pain. Trace lower extremity edema. NEURO: Normal sensorium. No sensory or motor deficits noted. SKIN: No rash or jaundice noted. Medical Decision & Procedures ER Provider Diagnostic Interpretation: Radiology results as stated below per my review and radiologist interpretation: CT SCAN OF THE LEFT HIP WITHOUT IV CONTRAST FINDINGS: The skeletal structures are osteopenic. There are acute and nondistracted left anterior pubic ring fractures. Cortical irregularity of the left inferior pubic ring may also represent nondistracted fracture. No additional fracture is identified. The left proximal femur is intact. Mild degenerative change is noted in the left hip. There is intrapelvic extraperitoneal hemorrhage identified around the pubic ring fractures. No large hematoma is identified. No intramuscular or intraperitoneal hemorrhage is seen. There is advanced atherosclerotic calcification of the visualized iliac and femoral arteries. Diverticulosis is noted in the sigmoid colon and there is rectosigmoid fecal impaction. The prostate gland is mildly enlarged. The bladder wall appears thickened and trabeculated suggesting chronic outlet obstruction. No left inguinal adenopathy is identified. IMPRESSION: 1. There are acute and nondistracted anterior left pubic ring fractures with trace surrounding extraperitoneal hemorrhage. There is also likely a left inferior pubic ring fracture. 2. No additional fracture is seen. The left proximal femur is intact. 3. No large hematoma is identified. 4. Prostatomegaly with evidence of chronic bladder outlet obstruction. 5. Additional findings as above. Dictated: 01/06/2017 6:03 PM Transcribed: 01/06/2017 6:46 PM [email or web address] Electronically signed by: Star Aleman M.D. LEFT HIP 2 VIEWS FINDINGS: AP and frog-leg views of left hip are compared to study dated 08/17/2016. The skeletal structures are osteopenic. There is no radiographic evidence of left hip fracture. The visualized left hemipelvis appears intact. Mild arthritic change and joint space narrowing is seen in the left hip. The overlying soft tissues are within normal limits. There is atherosclerotic calcification of the left femoral artery. A surgical clip is present in the left upper thigh. IMPRESSION: Osteopenia and arthritic change as above. There is no radiographic evidence of left hip fracture. Electronically signed by: Star Aleman M.D. Laboratory Results Test 01/06/17 18:49 Laboratory results reviewed by nm ED Course 1700: The patient was evaluated in room B7. A complete history and physical exam was performed. 1734: I spoke with the patient. We discussed the prospect of getting a CT. He verbalized agreement and understanding. 1849: Ordered Zofran Inj 4 mg IV. 1850: I reevaluated the patient. Discussed results and discharge instructions: he verbalized understanding and agreement. The patient is ready for discharge. 1900: Ordered Morphine Sulfate 4 mg IV. Medical Decision Triage Nursing notes reviewed. The patient's presentation and history were concerning for left hip pain. Etiologies such as soft tissue injury, fracture, dislocation, neurovascular compromise, compartment syndrome, as well as others were entertained. The patient was evaluated. Clinically he is doing well. He declined analgesia. X-ray imaging was ordered and was unremarkable. The patient cannot walk so CT imaging was ordered. The patient was found to have acute pelvic fractures. He then agreed to analgesia. He was given 4 mg of morphine and Zofran blood work was obtained. This was discussed with case management. The patient will need treatment in the hospital. I discussed the patient and family. They were in agreement. Consultation was made with internal medicine. The patient was evaluated in the Emergency Room for further management. Consults Time Called: 1899 Consulting Physician: Dr. Valarie Breen Returned Call: 1901 Discussed the patient's case. The patient will be evaluated for further treatment and disposition. Impression Primary Impression: Fracture of left pelvis Additional Impression: Fall Scribe Attestation The scribe's documentation has been prepared under my direction and personally reviewed by me in its entirety. I confirm that the note above accurately reflects all work, treatment, procedures, and medical decision making performed by me. Departure Information Dispostion Being Evaluated By Hospitalist Referrals Erasmo Yeager M.D. (PCP) Patient Instructions My [facility] Health Problem Qualifiers
[2017-01-06 20:05] LABS: INR 1.1 (0.9-1.1); PARTIAL THROMBOPLASTIN RATIO 1.1; PROTHROMBIN TIME (PATIENT) 12.3 SECONDS (9.0-12.0)
[2017-01-06] MEDS ORDERED: ACETAMINOPHEN 325 MG TAB PO PRN (20:30)
[2017-01-06 20:39] LABS: BASO % 0.6 %; BASO ABS # 0.04 K/uL (0-0.2); COMPLETE YES; EOS % 4.8 %; IG% 0.2 %; LYMPH % 19.1 %; LYMPH ABS # 1.27 K/uL (1.2-3.4); MEAN CORPUSCULAR HEMOGLOBIN 22.9 pg (25-34); MEAN CORPUSCULAR HGB CONC 30.5 g/dl (32-36); MONO % 9.3 %; PLATELET COUNT 166 K/uL (130-400); WHITE BLOOD COUNT 6.66 K/uL (4.8-10.8)
[2017-01-06 20:57] LABS: BUN/CREATININE RATIO 5.9 (10-20); CREATININE 4.7 mg/dl (0.60-1.40); POTASSIUM 4.5 mmol/L (3.5-5.1)
[2017-01-06] MEDS ORDERED: ONDANSETRON INJ 2 MG/ML 2 ML VIAL ONE (21:09)
[2017-01-06] MEDS ORDERED: TRMCR130WC TOP (21:25)
[2017-01-06] MEDS ORDERED: METO-478 PO (21:25)
[2017-01-06] MEDS ORDERED: NTRGSL/4 UT (21:25)
[2017-01-06] MEDS ORDERED: TAMS0.4C38 PO (21:25)
[2017-01-06 21:28] LABS: CALCIUM 9.2 mg/dl (8.5-10.1)
[2017-01-06 21:44] VITALS: BP 153/79; PULSE 92; TEMP 36.6; O2SAT 96
[2017-01-06 21:45] VITALS: BP 153/79; PULSE 92; TEMP 36.6; Ht 175.3 cm; Wt 97.0 kg
[2017-01-07] VITALS: BP 118/67; PULSE 85; TEMP 36.7; O2SAT 94
[2017-01-07] MEDS: HEPARIN SOD 5000 UNIT/0.5 ML CARP SQ SCH (00:18)
[2017-01-07] MEDS: OXYCODONE HCL IR 5 MG TAB (IMMEDIATE RELEASE) PO PRN ×2 (00:20→21:05)
--- NOTE | 2017-01-07 00:56 | History and Physical ---
History & Physical Date & Time of Service: Jan 07, 2017 at 00:20 Chief Complaint: Fall, Fracture Of Left Pelvis Primary Care Physician: Virgil Johnson M.D. (MEDICAL) History of Present Illness Source: patient, family, clinic records, hospital records 81 year old male with PMH of ESRD ON HD, ANEMIA, HTN, Vit D def, BPH, Aortic Valve replaced presents to the Emergency Room with complaints of intermittent left upper extremity pain s/p fall occurring this morning. Pt said that this morning while he was getting out of bed, he rolled out of the bed and fell in his left side and hit his left hip. He said that he did not lose consciousness or hit his head when falling. He was unable to get up by himself after the fall. His son came to help him to get up from the floor. Pt said that he only has pain when moving the left leg. He has been unable to walk on his left leg due to the pain. Describes the pain as achy, grade 9/10, worsening with movement of the left leg. Pt denies headache, neck pain, chest pain, SOB, nausea, vomiting, abdominal pain, back pain, numbness, weakness. 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 Status: Chronic (2) ASCVD (arteriosclerotic cardiovascular disease) Status: Chronic (3) BPH (benign prostatic hyperplasia) Status: Chronic (4) Dyslipidemia Status: Chronic (5) ESRD on dialysis Status: Chronic (6) HTN (hypertension) Status: Chronic (7) Leukocytosis Status: Resolved (8) Pacemaker Status: Chronic (9) Renal calculi Status: Chronic Surgical Problems: (1) Aortic valve replaced Status: Chronic (2) H/O inguinal hernia repair Status: Chronic (3) History of cataract surgery Status: Chronic (4) History of tonsillectomy Status: Chronic (5) Hx of CABG Status: Chronic Social History Problems: (1) Refusal of blood transfusions as patient is Jainism Status: Chronic Family History FHx: cancer FHx: heart disease FHx: hypertension FHx: kidney disease Social History Smoking Status: Former Smoker Drug Use: none Marital Status: Housing status: lives with family Occupational Status: retired Immunizations History of Influenza Vaccine: Unknown History of Tetanus Vaccine?: Unknown History of Pneumococcal: Unknown History of Hepatitis B Vaccine: Unknown Multi-Drug Resistant Organisms History of MDRO: No Allergies Coded Allergies: NO KNOWN DRUG ALLERGIES (Verified Allergy, Unknown, ., 01/06/17) Home Medications Scheduled Atorvastatin (Lipitor), 20 MG PO QPM Calcium Acetate (Phoslo 667 Mg), 1 CAP PO TID Cholecalciferol (Vitamin D3), 1 TAB PO QAM Metoprolol Succinate (Toprol Xl), 50 MG PO DAILY Nitroglycerin (Nitrostat), 0.4 MG UT PRN Tamsulosin Hcl (Flomax), 0.4 MG PO DAILY Vitamin B Cmplx/Vitc/Folic Ac (Nephrocaps), 1 CAP PO DIRECTED Scheduled PRN Oxycodone Immediate Rel Tab (Roxicodone Ir), 5 MG PO Q6H PRN for Pain Triamcinolone Acet (Aristocort 0.1%), 1 APPL TOP BID PRN for apply in the chest and back Review of Systems Constitutional: No fever, No chills, No sweats Eyes: No eye pain, No redness ENT: No nasal symptoms, No sore throat Respiratory: No cough, No sputum, No wheezing, No shortness of breath Cardiovascular: No chest pain, No orthopnea, No palpitations Abdomen: No pain, No nausea, No vomiting Musculoskeletal: + joint pain, No calf pain Genitourinary - Male: No hematuria, No dysuria Neurologic: No paralysis, No weakness Psychiatric: No anxiety, No substance abuse Endocrine: No excessive thirst Hematologic / Lymphatic: No night sweats Integumentary: No rash, No itch Physical Exam Vital Signs Date Time Temp Pulse Resp B/P (MAP) Pulse Ox O2 Delivery O2 Flow Rate FiO2 01/07/17 00:00 36.7 85 20 118/67 (84) 94 Room Air 01/06/17 21:45 36.6 92 18 153/79 Room Air 01/06/17 21:44 36.6 92 18 153/79 (103) 96 Room Air 01/06/17 21:09 92 18 150/88 99 Room Air 01/06/17 19:43 94 20 164/81 98 Room Air 01/06/17 18:15 95 18 151/83 97 Room Air 01/06/17 16:59 36.6 99 20 151/89 95 Room Air General Appearance: WD/WN, no apparent distress Head: normocephalic, atraumatic Eyes: PERRL, EOMI ENT: + pertinent finding (hearing aid) Neck: supple, no JVD Respiratory/Chest: normal breath sounds, no respiratory distress, no accessory muscle use Cardiovascular: regular rate, rhythm, no gallop Abdomen/GI: normal bowel sounds, non tender, soft Back: normal inspection, no CVA tenderness Extremities/Musculoskelatal: no calf tenderness, + swelling, + pertinent finding (LUE tenderness) Neurologic/Psych: implementation project manager II-XII nml as tested, no motor/sensory deficits, alert Skin: warm/dry, no rash Diagnostics Laboratory Results Results Past 24 Hours Test 01/06/17 19:35 Range/Units White Blood Count 6.66 4.8-10.8 K/uL Red Blood Count 5.60 4.7-6.1 M/uL Hemoglobin 12.8 14.0-18.0 g/dL Hematocrit 42.0 42-52 % Mean Corpuscular Volume 75.0 80-100 fL Mean Corpuscular Hemoglobin 22.9 25-34 pg Mean Corpuscular Hemoglobin Concent 30.5 32-36 g/dl Platelet Count 166 130-400 K/uL Neutrophils (%) (Auto) 66.0 % Lymphocytes (%) (Auto) 19.1 % Monocytes (%) (Auto) 9.3 % Eosinophils (%) (Auto) 4.8 % Basophils (%) (Auto) 0.6 % Neutrophils # (Auto) 4.40 1.4-6.5 K/uL Lymphocytes # (Auto) 1.27 1.2-3.4 K/uL Monocytes # (Auto) 0.62 0.11-0.59 K/uL Eosinophils # (Auto) 0.32 0-0.5 K/uL Basophils # (Auto) 0.04 0-0.2 K/uL RDW Standard Deviation 52.6 36.4-46.3 fL RDW Coefficient of Variation 19.1 11.5-14.5 % Immature Granulocyte % (Auto) 0.2 % Immature Granulocyte # (Auto) 0.01 0.00-0.02 K/uL Prothrombin Time 12.3 9.0-12.0 SECONDS Prothromb Time International Ratio 1.1 0.9-1.1 Activated Partial Thromboplast Time 28.2 21.0-31.0 SECONDS Partial Thromboplastin Ratio 1.1 Sodium Level 135 136-145 mmol/L Potassium Level 4.5 3.5-5.1 mmol/L Chloride Level 100 98-107 mmol/L Carbon Dioxide Level 26 21-32 mmol/L Anion Gap 9.0 3-11 mmol/L Blood Urea Nitrogen 28 7-18 mg/dl Creatinine 4.70 0.60-1.40 mg/dl Est Creatinine Clear Calc Drug Dose 13.4 ml/min Estimated GFR () 12.5 Estimated GFR (Non- 10.7 BUN/Creatinine Ratio 5.9 10-20 Random Glucose 110 70-99 mg/dl Calcium Level 9.2 8.5-10.1 mg/dl Microbiology Results 01/06/17 MRSA DNA Surveillance Screen, Received Pending Diagnostic Radiology LEFT HIP 2 VIEWS CLINICAL HISTORY: Fall with left hip pain. FINDINGS: AP and frog-leg views of left hip are compared to study dated 08/17/2016. The skeletal structures are osteopenic. There is no radiographic evidence of left hip fracture. The visualized left hemipelvis appears intact. Mild arthritic change and joint space narrowing is seen in the left hip. The overlying soft tissues are within normal limits. There is atherosclerotic calcification of the left femoral artery. A surgical clip is present in the left upper thigh. IMPRESSION: Osteopenia and arthritic change as above. There is no radiographic evidence of left hip fracture. Electronically signed by: Star Aleman M.D. 01/06/2017 5:26 PM Dictated Date/Time: 01/06/2017 5:[address] SCAN OF THE LEFT HIP WITHOUT IV CONTRAST CLINICAL HISTORY: Fall with left hip pain. COMPARISON STUDY: Radiographs of left hip dated 01/06/2017 and 08/17/2016. Pelvic CT dated 08/29/16. TECHNIQUE: CT scan of left hip was performed from the bony pelvis to the proximal femoral shaft. Images reviewed in the axial, sagittal, coronal planes. IV contrast was not administered for this examination. CT DOSE: 902.06 mGy. cm FINDINGS: The skeletal structures are osteopenic. There are acute and nondistracted left anterior pubic ring fractures. Cortical irregularity of the left inferior pubic ring may also represent nondistracted fracture. No additional fracture is identified. The left proximal femur is intact. Mild degenerative change is noted in the left hip. There is intrapelvic extraperitoneal hemorrhage identified around the pubic ring fractures. No large hematoma is identified. No intramuscular or intraperitoneal hemorrhage is seen. There is advanced atherosclerotic calcification of the visualized iliac and femoral arteries. Diverticulosis is noted in the sigmoid colon and there is rectosigmoid fecal impaction. The prostate gland is mildly enlarged. The bladder wall appears thickened and trabeculated suggesting chronic outlet obstruction. No left inguinal adenopathy is identified. IMPRESSION: 1. There are acute and nondistracted anterior left pubic ring fractures with trace surrounding extraperitoneal hemorrhage. There is also likely a left inferior pubic ring fracture. 2. No additional fracture is seen. The left proximal femur is intact. 3. No large hematoma is identified. 4. Prostatomegaly with evidence of chronic bladder outlet obstruction. 5. Additional findings as above. Dictated: 01/06/2017 6:03 PM Transcribed: 01/06/2017 6:46 PM [email or web address] Electronically signed by: Star Aleman M.D. 01/06/2017 6:50 PM Dictated Date/Time: 01/06/2017 6:03 PM Impression Assessment and Plan Left Pubic Ring Fracture S/p fall CT Hip showed acute and nondistracted anterior left pubic ring fractures with trace surrounding extraperitoneal hemorrhage. There is also likely a left inferior pubic ring fracture. No surgical intervention required Will do pain control fall precaution Physical therapy Consult Ortho ESRD HD on MWF Last HD was on Sunday Consult nephrology Dr. Call Stable Anemia Hbg 12.8 stable Pt is Jehov[employer] Witness no blood transfusion HTN BP elevated Possible related to pain Pt has not been taking the losartan due to low BP after HD Continue metoprolo 50mg daily BPH Continue Flomax Stable Dyslipidemia Continue Lipitor DVT px SCD for now due to trace surrounding extraperitoneal hemorrhage on CT Hold subq heparin for now. CODE STATUS FULL CODE DISPOSITION Consider rehab for physical therapy Level of Care Med/Surg Advanced Directives Existing Living Will: No Existing Power of Door Person: Yes VTE Prophylaxis VTE Risk Assessment Done? Y/N: Yes Risk Level: Moderate Given or contraindicated: Unfractionated heparin SQ
[2017-01-07 07:45] VITALS: BP 128/69; PULSE 84; TEMP 36.5; O2SAT 94
[2017-01-07] MEDS: CALCIUM ACETATE 667MG GELCAP PO SCH ×3 (08:22→18:37)
[2017-01-07] MEDS: CHOLECALCIFEROL 1000 INTER.UNIT TAB PO SCH (08:22)
[2017-01-07] MEDS: TAMSULOSIN HCL 0.4 MG CAP PO SCH (08:23)
[2017-01-07] MEDS: NEPHROCAPS PO SCH (08:23)
[2017-01-07] MEDS ORDERED: METOPROLOL SUCC 50MG EXT REL TAB PO SCH (09:00)
--- NOTE | 2017-01-07 10:35 | DIAGNOSTIC IMAGING REPORT ---
PELVIS 1 OR 2 VIEW ROUTINE CLINICAL HISTORY: pain pain COMPARISON: CT 01/06/2017. DISCUSSION: Considerable degenerative change of the hips bilaterally. No evidence for stable protrusion. Mild degenerative change sacroiliac joints. Fractures. She describes her not well seen. Alignment is anatomic. IMPRESSION: No acute process by routine film criteria. Degenerative change bilaterally. Fracture appears described in the CT study is not easily appreciated due to differences in modality Electronically signed by: Romaine Fine M.D. 01/07/2017 10:33 AM Dictated Date/Time: 01/07/2017 10:31 AM
[2017-01-07] MEDS ORDERED: NURSING VERBAL MED ORDER ONE (11:00)
[2017-01-07 14:55] VITALS: BP 111/67; PULSE 61; TEMP 36.3; O2SAT 96
--- NOTE | 2017-01-07 16:07 | NEPHROLOGY CONSULTATION ---
DATE OF CONSULTATION: 01/07/2017 ATTENDING OF RECORD: Dr. Cardenas. REASON FOR CONSULTATION: ESRD. HISTORY OF PRESENT ILLNESS: This is an 81-year-old male who dialyzes at the [facility] on Mondays, Wednesdays, and Fridays; last dialysis treatment was Sunday. The patient was in bed and fell out of bed on to his left side and hit his left hip and did not lose consciousness. Pain is tolerable as long as he is not moving his leg. The patient found to have a left pubic ring fracture secondary to the fall. Currently, resting, not complaining of any shortness of breath. Friends visiting him. The patient appears to be in good spirits, appetite is good, ate all of his lunch and he is alert. PAST MEDICAL HISTORY: BPH, hypertension, end-stage renal disease, on dialysis Mondays, Wednesdays, Fridays; history of a pacemaker insertion as well as an aortic valve replacement, anemia of end-stage renal disease. The patient is Congregational, no blood transfusions indicated. PAST SURGICAL HISTORY: Fistula placement, bypass surgery, aortic valve replacement, hernia repair, tonsillectomy, cataract surgery. SOCIAL HISTORY: Lives at home with . No alcohol. No tobacco. No drugs. Is a Congregational. FAMILY HISTORY: Cancer and heart disease. REVIEW OF SYSTEMS: No fevers or chills. No weight loss. No headaches. No shortness of breath. No chest pain. No nausea or vomiting. No diarrhea or constipation. Pain in his left hip/left leg upon movement. Otherwise, other review of systems is otherwise negative. CURRENT MEDICATIONS: Lipitor 20 mg at night, vitamin D 1000 units daily, Flomax 0.4 mg daily, Nephrocaps daily, PhosLo 1 p.o. t.i.d. with meals. PHYSICAL EXAMINATION: VITAL SIGNS: Temperature 36.5, pulse 84, respiratory rate 18, blood pressure 128/69, satting 94% on room air. GENERAL: Awake, alert, oriented x3. EYES: No scleral icterus. ENT: Moist mucous membranes. NECK: Supple. PULMONARY: Clear to auscultation. CARDIAC: Regular rate and rhythm. ABDOMEN: Bowel sounds positive, soft, nontender. EXTREMITIES: No significant clubbing, cyanosis or edema. Left leg pain upon movement. NEUROLOGICALLY: Nonfocal. LABORATORIES: Sodium was 135, potassium 4.5, chloride is 100, bicarbonate is 26, BUN is 28, creatinine is 4.7, glucose 110, calcium is 9.2. White count 6.6, H&H 12 and 42, platelet count is 166. INR is 1.1. ASSESSMENT AND PLAN: 1. End-stage renal disease: Will continue dialysis Mondays, Wednesdays, Fridays. No indication for emergent dialysis today. Electrolytes and volume status are acceptable. 2. Anemia of renal failure. Goal hemoglobin is 10-11, will continue Procrit. The patient is a Congregational, so no blood transfusions. 3. Renal osteodystrophy. We will continue patient's phosphate binders and follow phosphorus levels intermittently. I appreciate consultation. OSORIO
--- NOTE | 2017-01-07 17:27 | ORTHOPEDIC CONSULTATION ---
DATE OF CONSULTATION: 01/07/2017 HISTORY OF PRESENT ILLNESS: Mr. Poon is an 81-year-old gentleman with multiple other medical problems including end-stage renal disease, on dialysis. He had a fall in August and sustained a left proximal humerus fracture which has been treated nonoperatively with Dr. Sterling and Dr. Sawyer. He spent approximately 3 weeks in the hospital because of that injury and became somewhat deconditioned. Subsequent to that, he was improving and had gotten back to improved mobility. This morning he unfortunately fell out of bed and landed on his left side. He was able to ambulate to a chair but unable to walk after that. He came to the Emergency Room where he was admitted to the hospital. There is pain in the left hip and pelvis area. His past medical, surgical history are noted and reviewed on the chart. AP pelvis and x-rays of the left hip show no evidence of hip fracture. There is no arthritis. I do not see any obvious fracture. A CT scan has been done which shows a nondisplaced fracture of the medial portion of the superior pubic rami and possibly a fracture inferiorly. There is no proximal femur fracture. PHYSICAL EXAMINATION: He is afebrile. His vital signs are stable. On examination, he is resting comfortably in bed. He has intact sensation in both lower extremities. His feet are warm. Tibial pulses are not palpable. His strength is 5/5 with ankle and toe plantar flexion and dorsiflexion. He can bend his right knee easily to 90 and lift his leg up. He can bend his left knee only to about 45 degrees and cannot do a leg raise. Log rolling of the left leg elicits no discomfort. He has no tenderness of the left lower extremity. He does have some soreness on palpation of the anterior pubis and groin area on the left side. There is no tenderness to palpation of the lumbar spine or the sacral area. The pelvis elicits no discomfort with compression or distraction of the pelvic wings. No bruising or swelling is noted. IMPRESSION: Lateral compression type 1 left pelvis fracture. This is likely pathological due to underlying osteoporosis secondary to kidney dysfunction. PLAN: Findings are discussed with the patient. He may have PT for therapy, weightbearing as tolerated using a walker, fall precautions and fall prevention education. Heparin has been ordered for DVT prophylaxis. He can follow up with Dr. Sterling or Dr. Sawyer as an outpatient, pain medication and ice. I think the patient may benefit from stay in an acute care rehab or intermediate facility to improve his ambulation and endurance prior to returning to independent living at home. OSORIO
[2017-01-07] MEDS: ATORVASTATIN 20 MG TAB PO SCH (21:04)
[2017-01-07 22:50] VITALS: BP 123/69; PULSE 75; TEMP 36.6; O2SAT 93
[2017-01-08] VITALS (17 sets, daily range): BP systolic 95–140; BP diastolic 36–74; PULSE 74–92; TEMP 36.5–37.1; O2SAT 95–96
--- NOTE | 2017-01-08 07:20 | Progress Note ---
Medicine Progress Note Date & Time of Visit: Jan 07, 2017 at 20:55. Subjective 81 yo M with low velocity fall from sitting height presents with inability to walk and Left Pubic Ring Fracture -tolerating PO -denies pain -denies chest pain or SOB -currently unable to bear weight. Objective Last 8 Hrs Date Time Temp Pulse Resp B/P (MAP) Pulse Ox O2 Delivery O2 Flow Rate FiO2 01/07/17 16:00 Room Air 01/07/17 14:55 36.3 61 16 111/67 (82) 96 Room Air Physical Exam: GEN: WNWD, in no acute distress, alert and appropriate HEENT: NC/AT, PERRL, normal sclerae/conjunctivae, MMM CARDIO: reg rate, S1/2 heard without m/g/r, RP and DP palpable 2+ bilat, no LE swelling or edema LUNGS: CTA bilaterally, no crackles, rales or wheezes, good diaphragmatic excursion ABD: soft, non-tender, non-distended, no rebound or guarding, +BS EXTREMITY: extremities are warm and well-perfused NEURO: CN 2-12 grossly intact, sensation intact throughout MUSC: cannot move lower extremities well 2/2 pain so limited exam SKIN: warm and dry Laboratory Results: Date/Time Source Procedure Growth Status 01/06/17 23:15 Nasal MRSA DNA Surveillance Screen - Final Specimen Negative for MRSA by DNA Probe Complete Assessment & Plan 81 yo M with low velocity fall from sitting height presents with inability to walk and Left Pubic Ring Fracture 1. Pelvic fracture-CT Hip showed acute and nondistracted anterior left pubic ring fractures with trace surrounding extraperitoneal hemorrhage. There is also likely a left inferior pubic ring fracture. Ortho consult placed with evaluation pending. Cont aggressive pain control and PT/OT. Fall precautions. 2. ESRD on HD-Nephro consulted for inpatient HD while he is here. Cont with MWF schedule. 3. Anemia of ESRD-pt is [employer] and does not want blood transfusions ; currently stable 4. HTN-better control today. Pt reports lower BP after starting on HD and not requiring Toprol or Losartan. He states his PCP took him off of it and he hasn' t taken it in a long time. These are not being given. 5. BPH-stable, cont Flomax 6. Hyperlipidemia-cont Lipitor DVT px SCD for now due to trace surrounding extraperitoneal hemorrhage on CT Hold subq heparin for now until evaluated by Ortho CODE STATUS FULL CODE DISPOSITION Consider rehab for physical therapy [facility] Consultants: Ortho, PT Current Inpatient Medications: Current Inpatient Medications Medications (Trade) Dose Ordered Sig/Daniel Route Start Time Stop Time Status Last Admin Dose Admin Acetaminophen (Tylenol Tab) 650 mg Q4H PRN PO 01/06/17 20:30 02/05/17 20:29 01/07/17 18:38 650 MG Heparin Sodium (Porcine) (Heparin Sq 5000 Unit/0.5ml) 5,000 unit Q8H SQ 01/06/17 22:00 02/05/17 21:59 Future Hold 01/07/17 00:18 5,000 UNIT Atorvastatin Calcium (Lipitor Tab) 20 mg QPM PO 01/07/17 21:00 02/06/17 20:59 Calcium Acetate (Phoslo Cap) 667 mg TIDM PO 01/07/17 08:30 02/06/17 08:29 01/07/17 18:37 667 MG Cholecalciferol (Vitamin D Tab) 1,000 inter.unit QAM PO 01/07/17 09:00 02/06/17 08:59 01/07/17 08:22 1,000 INTER.UNIT Oxycodone HCl (Roxicodone Immediate Rel Tab) 5 mg Q6H PRN PO 01/06/17 21:30 01/20/17 21:29 01/07/17 00:20 5 MG Tamsulosin HCl (Flomax Cap) 0.4 mg DAILY PO 01/07/17 09:00 02/06/17 08:59 01/07/17 08:23 0.4 MG Vitamin B Complex/ Vit C/Folic Acid (Nephrocaps) 1 cap DAILY PO 01/07/17 09:00 02/06/17 08:59 01/07/17 08:23 1 CAP
[2017-01-08] MEDS: CALCIUM ACETATE 667MG GELCAP PO SCH ×3 (07:51→17:45)
[2017-01-08] MEDS: NEPHROCAPS PO SCH (07:51)
[2017-01-08] MEDS: TAMSULOSIN HCL 0.4 MG CAP PO SCH (07:51)
[2017-01-08] MEDS: CHOLECALCIFEROL 1000 INTER.UNIT TAB PO SCH (07:52)
[2017-01-08 07:57] LABS: MEAN CORPUSCULAR HGB CONC 30.3 g/dl (32-36)
[2017-01-08 08:09] LABS: MEAN CELL VOLUME 74.4 fL (80-100); MEAN CORPUSCULAR HEMOGLOBIN 22.5 pg (25-34); RED BLOOD COUNT 5.24 M/uL (4.7-6.1); WHITE BLOOD COUNT 5.65 K/uL (4.8-10.8)
[2017-01-08 08:25] LABS: BUN/CREATININE RATIO 6.9 (10-20); CALCIUM 8.6 mg/dl (8.5-10.1); CREATININE 6.8 mg/dl (0.60-1.40); MAGNESIUM 2.3 mg/dl (1.8-2.4); PHOSPHORUS 5.3 mg/dl (2.5-4.9); POTASSIUM 5.5 mmol/L (3.5-5.1)
[2017-01-08 08:33] LABS: PLATELET COUNT 119 K/uL (130-400)
--- NOTE | 2017-01-08 12:35 | Clinical Documentation Query ---
CLINICAL DOCUMENTATION QUERY Dr. POPE, In your clinical opinion is this patient being managed for: ( x ) Pathologic/osteoporotic L pubic ring fracture ( ) Other explanation of clinical findings (Please Explain) ( ) Unable to determine (Please Define) ( ) Need to Discuss ( ) Not Agree The medical record reflects the following clinical findings, treatment, and risk factors. Clinical Indicators: The diagnosis of a pathological fracture due to underlying osteoporosis is documented by the orthopedic computer systems consultant. For consistency and accurate ICD 10 code assignment, please document the underlying cause of your patients pubic ring fracture. Treatment: orthopedic consult, pain control, pending PT eval Risk Factors: osteoporosis, ESRD Please clarify and document your clinical opinion in the progress notes and discharge summary. Terms such as "probable", "suspected", "likely", "questionable", "possible", or "still to be ruled out" are acceptable. IF IN AGREEMENT, YOU MUST DOCUMENT ABOVE DIAGNOSTIC STATEMENT IN DAILY PROGRESS NOTES AND DISCHARGE SUMMARY. This document is not part of the patient's record. Thank You, Marizol Park, STANISLAV [phone]
[2017-01-08] MEDS: HEPARIN SOD 5000 UNIT/0.5 ML CARP SQ SCH ×2 (14:31→21:40)
--- NOTE | 2017-01-08 15:16 | Nephrology Progress Note ---
Nephrology Progress Note Date of Service: Jan 08, 2017. Subjective 81 yo male with esrd with fall and fracture. no surgery needed. pt comfortable other than limited mobility of his leg. pt inquiring about start time for dialysis. no sob. good appetite. Objective Date Time Temp Pulse Resp B/P (MAP) Pulse Ox O2 Delivery O2 Flow Rate FiO2 01/08/17 08:15 Room Air 01/08/17 07:44 36.5 81 20 136/74 (94) 96 Room Air 01/08/17 00:15 Room Air 01/07/17 22:50 36.6 75 18 123/69 (87) 93 Room Air 01/07/17 16:00 Room Air Physical Exam: General-aaox3 Eyes-no scleral icterus ENT-mmm Neck-supple Lungs-cta Heart-rrr Abdomen-bs+/s/nt/nd Extremities-mild edema, limited mobility of left leg Neuro-nonfocal Current Inpatient Medications Medications (Trade) Dose Ordered Sig/Daniel Route Start Time Stop Time Status Last Admin Dose Admin Acetaminophen (Tylenol Tab) 650 mg Q4H PRN PO 01/06/17 20:30 02/05/17 20:29 01/07/17 18:38 650 MG Heparin Sodium (Porcine) (Heparin Sq 5000 Unit/0.5ml) 5,000 unit Q8H SQ 01/06/17 22:00 02/05/17 21:59 Future hold 01/08/17 14:31 5,000 UNIT Atorvastatin Calcium (Lipitor Tab) 20 mg QPM PO 01/07/17 21:00 02/06/17 20:59 01/07/17 21:04 20 MG Calcium Acetate (Phoslo Cap) 667 mg TIDM PO 01/07/17 08:30 02/06/17 08:29 01/08/17 12:22 667 MG Cholecalciferol (Vitamin D Tab) 1,000 inter.unit QAM PO 01/07/17 09:00 02/06/17 08:59 01/08/17 07:52 1,000 INTER.UNIT Oxycodone HCl (Roxicodone Immediate Rel Tab) 5 mg Q6H PRN PO 01/06/17 21:30 01/20/17 21:29 01/07/17 21:05 5 MG Tamsulosin HCl (Flomax Cap) 0.4 mg DAILY PO 01/07/17 09:00 02/06/17 08:59 01/08/17 07:51 0.4 MG Vitamin B Complex/ Vit C/Folic Acid (Nephrocaps) 1 cap DAILY PO 01/07/17 09:00 02/06/17 08:59 01/08/17 07:51 1 CAP Last 24 Hours Test 01/08/17 07:37 White Blood Count 5.65 K/uL Red Blood Count 5.24 M/uL Hemoglobin 11.8 g/dL Hematocrit 39.0 % Mean Corpuscular Volume 74.4 fL Mean Corpuscular Hemoglobin 22.5 pg Mean Corpuscular Hemoglobin Concent 30.3 g/dl RDW Standard Deviation 51.6 fL RDW Coefficient of Variation 19.0 % Platelet Count 119 K/uL Sodium Level 135 mmol/L Potassium Level 5.5 mmol/L Chloride Level 101 mmol/L Carbon Dioxide Level 24 mmol/L Anion Gap 10.0 mmol/L Blood Urea Nitrogen 47 mg/dl Creatinine 6.80 mg/dl Est Creatinine Clear Calc Drug Dose 9.2 ml/min Estimated GFR () 8.0 Estimated GFR (Non- 6.9 BUN/Creatinine Ratio 6.9 Random Glucose 89 mg/dl Calcium Level 8.6 mg/dl Phosphorus Level 5.3 mg/dl Magnesium Level 2.3 mg/dl Assessment & Plan ESRD-for dialysis today, volume status and electrolytes are stable. k 5.5 and on a 2k bath. Anemia of renal failure-hg 11.8 and holding off on procrit at this time. MARIA E:on phoslo and will follow phos levels intermittently during admission.
[2017-01-08] MEDS: OXYCODONE HCL IR 5 MG TAB (IMMEDIATE RELEASE) PO PRN ×2 (15:19→21:42)
[2017-01-08] MEDS: ATORVASTATIN 20 MG TAB PO SCH (20:58)
--- NOTE | 2017-01-08 23:10 | Progress Note ---
Medicine Progress Note Date & Time of Visit: Jan 08, 2017 at 15:44. Subjective 81 yo M with low velocity fall from sitting height presents with inability to walk and Left Pubic Ring Fracture -denies any pain -tolerating PO -denies any issues or symptoms today Objective Last 8 Hrs Date Time Temp Pulse Resp B/P (MAP) Pulse Ox O2 Delivery O2 Flow Rate FiO2 01/08/17 08:15 Room Air Physical Exam: GEN: WNWD, in no acute distress, alert and appropriate, sitting in bed in dialysis unit, undergoing HD at this time. HEENT: NC/AT, normal sclerae/conjunctivae, MMM CARDIO: reg rate, S1/2 heard without m/g/r, RP and DP palpable 2+ bilat, no LE swelling or edema LUNGS: CTA bilaterally, no crackles, rales or wheezes, good diaphragmatic excursion ABD: soft, non-tender, non-distended, no rebound or guarding, +BS EXTREMITY: extremities are warm and well-perfused, H D access is ongoing LUE NEURO: CN 2-12 grossly intact, sensation intact throughout MUSC: cannot move lower extremities well 2/2 pain so limited exam SKIN: warm and dry Laboratory Results: 01/08/17 07:37 01/08/17 07:37 Test 01/06/17 19:35 01/08/17 07:37 Immature Granulocyte % (Auto) 0.2 % White Blood Count 6.66 K/uL (4.8-10.8) Red Blood Count 5.60 M/uL (4.7-6.1) 5.24 M/uL (4.7-6.1) Hemoglobin 12.8 g/dL (14.0-18.0) Hematocrit 42.0 % (42-52) Mean Corpuscular Volume 75.0 fL (80-100) 74.4 fL (80-100) Mean Corpuscular Hemoglobin 22.9 pg (25-34) 22.5 pg (25-34) Mean Corpuscular Hemoglobin Concent 30.5 g/dl (32-36) 30.3 g/dl (32-36) Platelet Count 166 K/uL (130-400) Neutrophils (%) (Auto) 66.0 % Lymphocytes (%) (Auto) 19.1 % Monocytes (%) (Auto) 9.3 % Eosinophils (%) (Auto) 4.8 % Basophils (%) (Auto) 0.6 % Neutrophils # (Auto) 4.40 K/uL (1.4-6.5) Lymphocytes # (Auto) 1.27 K/uL (1.2-3.4) Monocytes # (Auto) 0.62 K/uL (0.11-0.59) Eosinophils # (Auto) 0.32 K/uL (0-0.5) Basophils # (Auto) 0.04 K/uL (0-0.2) Immature Granulocyte # (Auto) 0.01 K/uL (0.00-0.02) Prothrombin Time 12.3 SECONDS (9.0-12.0) Prothromb Time International Ratio 1.1 (0.9-1.1) Activated Partial Thromboplast Time 28.2 SECONDS (21.0-31.0) Partial Thromboplastin Ratio 1.1 RDW Standard Deviation 51.6 fL (36.4-46.3) RDW Coefficient of Variation 19.0 % (11.5-14.5) Anion Gap 10.0 mmol/L (3-11) Est Creatinine Clear Calc Drug Dose 9.2 ml/min Estimated GFR () 8.0 Estimated GFR (Non- 6.9 BUN/Creatinine Ratio 6.9 (10-20) Calcium Level 8.6 mg/dl (8.5-10.1) Phosphorus Level 5.3 mg/dl (2.5-4.9) Magnesium Level 2.3 mg/dl (1.8-2.4) Date/Time Source Procedure Growth Status 01/06/17 23:15 Nasal MRSA DNA Surveillance Screen - Final Specimen Negative for MRSA by DNA Probe Complete Last 24 Hours Test 01/08/17 07:37 White Blood Count 5.65 K/uL Red Blood Count 5.24 M/uL Hemoglobin 11.8 g/dL Hematocrit 39.0 % Mean Corpuscular Volume 74.4 fL Mean Corpuscular Hemoglobin 22.5 pg Mean Corpuscular Hemoglobin Concent 30.3 g/dl RDW Standard Deviation 51.6 fL RDW Coefficient of Variation 19.0 % Platelet Count 119 K/uL Sodium Level 135 mmol/L Potassium Level 5.5 mmol/L Chloride Level 101 mmol/L Carbon Dioxide Level 24 mmol/L Anion Gap 10.0 mmol/L Blood Urea Nitrogen 47 mg/dl Creatinine 6.80 mg/dl Est Creatinine Clear Calc Drug Dose 9.2 ml/min Estimated GFR () 8.0 Estimated GFR (Non- 6.9 BUN/Creatinine Ratio 6.9 Random Glucose 89 mg/dl Calcium Level 8.6 mg/dl Phosphorus Level 5.3 mg/dl Magnesium Level 2.3 mg/dl Assessment & Plan 81 yo M with low velocity fall from sitting height presents with inability to walk and Left Pubic Ring Fracture 1. Pelvic fracture-CT Hip showed acute and nondistracted anterior left pubic ring fractures with trace surrounding extraperitoneal hemorrhage. There is also likely a left inferior pubic ring fracture. Ortho consult placed and they recommend nonoperative management. Pain is very well controlled at this point. PT started today, plan for rehab. Fall precautions. 2. ESRD on HD-Nephro consulted for inpatient HD while he is here. Cont with MWF schedule. 3. Anemia of ESRD-pt is [place] and does not want blood transfusions ; currently stable 4. HTN-better control today. Pt reports lower BP after starting on HD and not requiring Toprol or Losartan. He states his PCP took him off of it and he hasn' t taken it in a long time. These are not being given. 5. BPH-stable, cont Flomax 6. Hyperlipidemia-cont Lipitor DVT px: heparin CODE STATUS FULL CODE DISPOSITION: to rehab. [facility] Hospital[facility] Consultants: Ortho, PT Current Inpatient Medications: Current Inpatient Medications Medications (Trade) Dose Ordered Sig/Daniel Route Start Time Stop Time Status Last Admin Dose Admin Acetaminophen (Tylenol Tab) 650 mg Q4H PRN PO 01/06/17 20:30 02/05/17 20:29 01/07/17 18:38 650 MG Heparin Sodium (Porcine) (Heparin Sq 5000 Unit/0.5ml) 5,000 unit Q8H SQ 01/06/17 22:00 02/05/17 21:59 Future hold 01/08/17 14:31 5,000 UNIT Atorvastatin Calcium (Lipitor Tab) 20 mg QPM PO 01/07/17 21:00 02/06/17 20:59 01/07/17 21:04 20 MG Calcium Acetate (Phoslo Cap) 667 mg TIDM PO 01/07/17 08:30 7/25/17 08:29 01/08/17 12:22 667 MG Cholecalciferol (Vitamin D Tab) 1,000 inter.unit QAM PO 01/07/17 09:00 02/06/17 08:59 01/08/17 07:52 1,000 INTER.UNIT Oxycodone HCl (Roxicodone Immediate Rel Tab) 5 mg Q6H PRN PO 01/06/17 21:30 01/20/17 21:29 01/08/17 15:19 5 MG Tamsulosin HCl (Flomax Cap) 0.4 mg DAILY PO 01/07/17 09:00 02/06/17 08:59 01/08/17 07:51 0.4 MG Vitamin B Complex/ Vit C/Folic Acid (Nephrocaps) 1 cap DAILY PO 01/07/17 09:00 02/06/17 08:59 01/08/17 07:51 1 CAP
[2017-01-09] MEDS: HEPARIN SOD 5000 UNIT/0.5 ML CARP SQ SCH ×3 (05:50→21:38)
[2017-01-09 06:38] LABS: MEAN CORPUSCULAR HGB CONC 30.7 g/dl (32-36)
[2017-01-09 06:53] LABS: HEMATOCRIT 38.7 % (42-52); MEAN CELL VOLUME 73.3 fL (80-100); MEAN CORPUSCULAR HEMOGLOBIN 22.5 pg (25-34); RED BLOOD COUNT 5.28 M/uL (4.7-6.1); WHITE BLOOD COUNT 5.22 K/uL (4.8-10.8)
[2017-01-09 06:59] LABS: PLATELET COUNT 123 K/uL (130-400)
[2017-01-09 07:09] LABS: PLT ESTIMATE DECREASED
[2017-01-09 07:16] VITALS: BP 116/68; PULSE 80; TEMP 36.8; O2SAT 94
[2017-01-09 07:26] LABS: BUN/CREATININE RATIO 6.1 (10-20); CREATININE 5.4 mg/dl (0.60-1.40); MAGNESIUM 2.3 mg/dl (1.8-2.4); POTASSIUM 4.6 mmol/L (3.5-5.1)
[2017-01-09] MEDS ORDERED: DiphenhydrAMINE 2%/ZINC 0.1% CREAM 28GM TUBE EXT PRN (08:00)
[2017-01-09] MEDS: NEPHROCAPS PO SCH (08:26)
[2017-01-09] MEDS: CHOLECALCIFEROL 1000 INTER.UNIT TAB PO SCH (08:26)
[2017-01-09] MEDS: TAMSULOSIN HCL 0.4 MG CAP PO SCH (08:26)
[2017-01-09] MEDS: CALCIUM ACETATE 667MG GELCAP PO SCH ×3 (08:26→17:27)
--- NOTE | 2017-01-09 10:36 | Progress Note ---
Progress Note Date of Service Jan 09, 2017. Progress Note Less pain. Labs noted. Up with PT for short distance yesterday. Can extend knee but no SLR. Requires assist to bend knee but can flex to 80. Leg nontender. Ankle and toe PF and DF 5/5. Imp is pelvis fracture. I recommend longterm or acute care rehab. I do not think the patient can go home. Walker, WBAT. Follow up with Dr Sawyer/Hallie or me in 7-10 days
[2017-01-09 13:26] LABS: CALCIUM 8.5 mg/dl (8.5-10.1)
--- NOTE | 2017-01-09 14:34 | Orthopedic Progress Note ---
Orthopedic Progress Note Date of Service Jan 09, 2017. Subjective Additional Notes: Pain is controlled. Has left sided groin pain with weightbearing. No other complaints. Objective He is alert, oriented. No distress. Exam of the left lower extremity: He has pain and difficulty doing straight leg raise. No groin pain with gentle ROM of hip. Able to DF and PF appropriately. Date Time Temp Pulse Resp B/P (MAP) Pulse Ox O2 Delivery O2 Flow Rate FiO2 01/09/17 07:30 Nasal Cannula 01/09/17 07:16 36.8 80 16 116/68 (84) 94 Room Air 01/08/17 23:40 Room Air 01/08/17 22:55 36.7 84 18 125/69 (87) 95 Room Air 01/08/17 19:12 36.8 92 16 140/72 (94) 95 Room Air 01/08/17 19:06 37.1 81 110/36 (60) 01/08/17 18:30 81 105/60 01/08/17 18:30 81 105/60 01/08/17 18:15 74 97/54 01/08/17 18:15 74 97/54 01/08/17 18:00 83 95/57 01/08/17 18:00 83 95/57 01/08/17 17:45 81 104/61 01/08/17 17:30 75 112/66 01/08/17 17:15 84 101/58 01/08/17 17:15 Room Air 01/08/17 17:00 78 100/56 01/08/17 16:45 80 98/56 01/08/17 16:30 82 105/61 01/08/17 16:15 80 109/62 01/08/17 16:00 81 122/66 01/08/17 15:45 84 121/66 01/08/17 15:33 36.8 76 121/66 (84) Laboratory Results 24 Hours: Test 01/09/17 06:21 Hematocrit 38.7 % Hemoglobin 11.9 g/dL Assessment & Plan Assessment: Left pubic rami fx Plan: He was seen and examined by Dr. Honeycutt today as well Pain is controlled at this point. Continue non operative management. PTOT: WBAT with walker discharge planning to rehab DVT prophylaxis per hospitalist service Follow up with [facility] as outpatient in approx 1 month.
[2017-01-09 14:57] VITALS: BP 137/74; PULSE 85; TEMP 36.8; O2SAT 96
[2017-01-09] MEDS: ATORVASTATIN 20 MG TAB PO SCH (20:35)
[2017-01-09] MEDS: OXYCODONE HCL IR 5 MG TAB (IMMEDIATE RELEASE) PO PRN (21:36)
--- NOTE | 2017-01-09 21:52 | Progress Note ---
Medicine Progress Note Date & Time of Visit: Jan 09, 2017 at 15:36. Subjective 81 yo M with low velocity fall from sitting height presents with inability to walk and Left Pubic Ring Fracture -toelrating PO -mentating appropriately -no pain at all -asymptomatic Objective Last 8 Hrs Date Time Temp Pulse Resp B/P (MAP) Pulse Ox O2 Delivery O2 Flow Rate FiO2 01/09/17 14:57 36.8 85 16 137/74 (95) 96 Room Air Physical Exam: GEN: WNWD, in no acute distress, alert and appropriate, sitting in chair HEENT: NC/AT, normal sclerae/conjunctivae, MMM CARDIO: reg rate, S1/2 heard without m/g/r, RP and DP palpable 2+ bilat, no LE swelling or edema LUNGS: CTA bilaterally, no crackles, rales or wheezes, good diaphragmatic excursion ABD: soft, non-tender, non-distended, no rebound or guarding, +BS EXTREMITY: extremities are warm and well-perfused NEURO: CN 2-12 grossly intact, sensation intact throughout MUSC: generalized weakness noted SKIN: warm and dry Laboratory Results: 01/09/17 06:21 01/09/17 06:21 Test 01/06/17 19:35 01/08/17 07:37 01/09/17 06:21 Immature Granulocyte % (Auto) 0.2 % White Blood Count 6.66 K/uL (4.8-10.8) Red Blood Count 5.60 M/uL (4.7-6.1) 5.28 M/uL (4.7-6.1) Hemoglobin 12.8 g/dL (14.0-18.0) Hematocrit 42.0 % (42-52) Mean Corpuscular Volume 75.0 fL (80-100) 73.3 fL (80-100) Mean Corpuscular Hemoglobin 22.9 pg (25-34) 22.5 pg (25-34) Mean Corpuscular Hemoglobin Concent 30.5 g/dl (32-36) 30.7 g/dl (32-36) Platelet Count 166 K/uL (130-400) Neutrophils (%) (Auto) 66.0 % Lymphocytes (%) (Auto) 19.1 % Monocytes (%) (Auto) 9.3 % Eosinophils (%) (Auto) 4.8 % Basophils (%) (Auto) 0.6 % Neutrophils # (Auto) 4.40 K/uL (1.4-6.5) Lymphocytes # (Auto) 1.27 K/uL (1.2-3.4) Monocytes # (Auto) 0.62 K/uL (0.11-0.59) Eosinophils # (Auto) 0.32 K/uL (0-0.5) Basophils # (Auto) 0.04 K/uL (0-0.2) Immature Granulocyte # (Auto) 0.01 K/uL (0.00-0.02) Prothrombin Time 12.3 SECONDS (9.0-12.0) Prothromb Time International Ratio 1.1 (0.9-1.1) Activated Partial Thromboplast Time 28.2 SECONDS (21.0-31.0) Partial Thromboplastin Ratio 1.1 Phosphorus Level 5.3 mg/dl (2.5-4.9) RDW Standard Deviation 50.3 fL (36.4-46.3) RDW Coefficient of Variation 18.8 % (11.5-14.5) Platelet Estimate DECREASED Anion Gap 7.0 mmol/L (3-11) Est Creatinine Clear Calc Drug Dose 12.2 ml/min Estimated GFR () 10.5 Estimated GFR (Non- 9.1 BUN/Creatinine Ratio 6.1 (10-20) Calcium Level 8.5 mg/dl (8.5-10.1) Magnesium Level 2.3 mg/dl (1.8-2.4) Date/Time Source Procedure Growth Status 01/06/17 23:15 Nasal MRSA DNA Surveillance Screen - Final Specimen Negative for MRSA by DNA Probe Complete Last 24 Hours Test 01/09/17 06:21 White Blood Count 5.22 K/uL Red Blood Count 5.28 M/uL Hemoglobin 11.9 g/dL Hematocrit 38.7 % Mean Corpuscular Volume 73.3 fL Mean Corpuscular Hemoglobin 22.5 pg Mean Corpuscular Hemoglobin Concent 30.7 g/dl RDW Standard Deviation 50.3 fL RDW Coefficient of Variation 18.8 % Platelet Count 123 K/uL Platelet Estimate DECREASED Sodium Level 135 mmol/L Potassium Level 4.6 mmol/L Chloride Level 100 mmol/L Carbon Dioxide Level 28 mmol/L Anion Gap 7.0 mmol/L Blood Urea Nitrogen 33 mg/dl Creatinine 5.40 mg/dl Est Creatinine Clear Calc Drug Dose 12.2 ml/min Estimated GFR () 10.5 Estimated GFR (Non- 9.1 BUN/Creatinine Ratio 6.1 Random Glucose 95 mg/dl Calcium Level 8.5 mg/dl Magnesium Level 2.3 mg/dl Assessment & Plan 81 yo M with low velocity fall from sitting height presents with inability to walk and Left Pubic Ring Fracture 1. Pathologic Pelvic fracture-CT Hip showed acute and nondistracted anterior left pubic ring fractures with trace surrounding extraperitoneal hemorrhage. There is also likely a left inferior pubic ring fracture. Ortho consult placed and they recommend nonoperative management. Pain is very well controlled at this point. Cont PT, OT ordered, plan for [facility] tomorrow. Fall precautions. 2. ESRD on HD-Nephro consulted for inpatient HD while he is here. Cont with MWF schedule. 3. Anemia of ESRD-pt is [place] and does not want blood transfusions ; currently stable 4. HTN-controlled Pt reports lower BP after starting on HD and not requiring Toprol or Losartan. He states his PCP took him off of it and he hasn't taken it in a long time. These are not being given. 5. BPH-stable, cont Flomax 6. Hyperlipidemia-cont Lipitor DVT px: heparin CODE STATUS FULL CODE DISPOSITION: to rehab. DO Khang Bradshaw Hospitalist Consultants: Ortho, PT Current Inpatient Medications: Current Inpatient Medications Medications (Trade) Dose Ordered Sig/Daniel Route Start Time Stop Time Status Last Admin Dose Admin Acetaminophen (Tylenol Tab) 650 mg Q4H PRN PO 01/06/17 20:30 02/05/17 20:29 01/07/17 18:38 650 MG Heparin Sodium (Porcine) (Heparin Sq 5000 Unit/0.5ml) 5,000 unit Q8H SQ 01/06/17 22:00 02/05/17 21:59 Future hold 01/09/17 14:17 5,000 UNIT Atorvastatin Calcium (Lipitor Tab) 20 mg QPM PO 01/07/17 21:00 02/06/17 20:59 01/08/17 20:58 20 MG Calcium Acetate (Phoslo Cap) 667 mg TIDM PO 01/07/17 08:30 02/06/17 08:29 01/09/17 12:30 667 MG Cholecalciferol (Vitamin D Tab) 1,000 inter.unit QAM PO 01/07/17 09:00 02/06/17 08:59 01/09/17 08:26 1,000 INTER.UNIT Oxycodone HCl (Roxicodone Immediate Rel Tab) 5 mg Q6H PRN PO 01/06/17 21:30 01/20/17 21:29 01/08/17 21:42 5 MG Tamsulosin HCl (Flomax Cap) 0.4 mg DAILY PO 01/07/17 09:00 02/06/17 08:59 01/09/17 08:26 0.4 MG Vitamin B Complex/ Vit C/Folic Acid (Nephrocaps) 1 cap DAILY PO 01/07/17 09:00 02/06/17 08:59 01/09/17 08:26 1 CAP Diphenhydramine HCl (Benadryl Extra Strength Cream) 1 appln Q6H PRN EXT 01/09/17 08:00 02/08/17 07:59 01/09/17 09:52 1 APPLN
[2017-01-09 23:05] VITALS: BP 134/81; PULSE 91; TEMP 36.7; O2SAT 94
[2017-01-10] VITALS (20 sets, daily range): BP systolic 71–135; BP diastolic 36–73; PULSE 78–89; TEMP 36.3–37.1; O2SAT 94
[2017-01-10] MEDS: HEPARIN SOD 5000 UNIT/0.5 ML CARP SQ SCH (05:47)
[2017-01-10] MEDS: CALCIUM ACETATE 667MG GELCAP PO SCH ×2 (07:26→12:53)
[2017-01-10] MEDS: CHOLECALCIFEROL 1000 INTER.UNIT TAB PO SCH (07:26)
[2017-01-10] MEDS: NEPHROCAPS PO SCH (07:26)
[2017-01-10] MEDS: TAMSULOSIN HCL 0.4 MG CAP PO SCH (07:26)
[2017-01-10 07:27] LABS: MEAN CORPUSCULAR HEMOGLOBIN 23.1 pg (25-34); MEAN CORPUSCULAR HGB CONC 31.6 g/dl (32-36); PLATELET COUNT 162 K/uL (130-400); RED BLOOD COUNT 5.07 M/uL (4.7-6.1); WHITE BLOOD COUNT 5.81 K/uL (4.8-10.8)
[2017-01-10] MEDS: OXYCODONE HCL IR 5 MG TAB (IMMEDIATE RELEASE) PO PRN (07:38)
--- NOTE | 2017-01-10 08:10 | Nephrology Progress Note ---
Nephrology Progress Note Date of Service: Jan 10, 2017. Subjective 81 yo male with esrd with fall and fracture. no surgery needed. pt frustrated since it will likely take several months for him to walk successfully. pt ate his breakfast and is ready for dialysis. Objective Date Time Temp Pulse Resp B/P (MAP) Pulse Ox O2 Delivery O2 Flow Rate FiO2 01/10/17 07:26 36.3 89 18 115/63 (80) 94 Room Air 01/09/17 23:30 Room Air 01/09/17 23:05 36.7 91 18 134/81 (98) 94 Room Air 01/09/17 15:15 Room Air 01/09/17 14:57 36.8 85 16 137/74 (95) 96 Room Air Physical Exam: General-aaox3 Eyes-no scleral icterus ENT-mmm Neck-supple Lungs-clear Heart-regular Abdomen-bs+/s/nt/nd Extremities-mild edema, limited mobility of left leg Bcvbf-sydtyhju-npptawnolt walking Current Inpatient Medications Medications (Trade) Dose Ordered Sig/Daniel Route Start Time Stop Time Status Last Admin Dose Admin Acetaminophen (Tylenol Tab) 650 mg Q4H PRN PO 01/06/17 20:30 02/05/17 20:29 01/07/17 18:38 650 MG Heparin Sodium (Porcine) (Heparin Sq 5000 Unit/0.5ml) 5,000 unit Q8H SQ 01/06/17 22:00 02/05/17 21:59 Future hold 01/10/17 05:47 5,000 UNIT Atorvastatin Calcium (Lipitor Tab) 20 mg QPM PO 01/07/17 21:00 02/06/17 20:59 01/09/17 20:35 20 MG Calcium Acetate (Phoslo Cap) 667 mg TIDM PO 01/07/17 08:30 02/06/17 08:29 01/10/17 07:26 667 MG Cholecalciferol (Vitamin D Tab) 1,000 inter.unit QAM PO 01/07/17 09:00 02/06/17 08:59 01/10/17 07:26 1,000 INTER.UNIT Oxycodone HCl (Roxicodone Immediate Rel Tab) 5 mg Q6H PRN PO 01/06/17 21:30 01/20/17 21:29 01/10/17 07:38 5 MG Tamsulosin HCl (Flomax Cap) 0.4 mg DAILY PO 01/07/17 09:00 02/06/17 08:59 01/10/17 07:26 0.4 MG Vitamin B Complex/ Vit C/Folic Acid (Nephrocaps) 1 cap DAILY PO 01/07/17 09:00 02/06/17 08:59 01/10/17 07:26 1 CAP Diphenhydramine HCl (Benadryl Extra Strength Cream) 1 appln Q6H PRN EXT 01/09/17 08:00 02/08/17 07:59 01/09/17 09:52 1 APPLN Last 24 Hours Test 01/10/17 06:54 White Blood Count 5.81 K/uL Red Blood Count 5.07 M/uL Hemoglobin 11.7 g/dL Hematocrit 37.0 % Mean Corpuscular Volume 73.0 fL Mean Corpuscular Hemoglobin 23.1 pg Mean Corpuscular Hemoglobin Concent 31.6 g/dl RDW Standard Deviation 49.9 fL RDW Coefficient of Variation 18.8 % Platelet Count 162 K/uL Assessment & Plan ESRD-for dialysis today, volume status and electrolytes are stable. Anemia of renal failure-hg above goal and holding off on procrit at this time. MARIA E:on phoslo and will follow phos levels intermittently during admission.
[2017-01-10 08:12] LABS: BUN/CREATININE RATIO 7.2 (10-20); CALCIUM 8.8 mg/dl (8.5-10.1); CREATININE 6.7 mg/dl (0.60-1.40); MAGNESIUM 2.2 mg/dl (1.8-2.4); POTASSIUM 4.9 mmol/L (3.5-5.1)
--- NOTE | 2017-01-10 13:05 | Discharge Instructions ---
Discharge Instructions Date of Service Jan 10, 2017. Admission Reason for Admission: Fall, Fracture Of Left Pelvis Discharge Discharge Diagnosis / Problem: L pathologic pelvic fracture s/p fall Discharge Goals Goal(s): Prevent Disease Progression Activity Recommendations Activity Limitations: per Instructions/Follow-up section . Instructions / Follow-Up Instructions / Follow-Up Please take all medications as instructed. It is recommended that you follow-up with your primary care physician within one week of discharge from rehab facility. Follow up with [facility] as outpatient in approx 1 month. It was a pleasure taking care of you! Call if you have any questions or problems. You can reach a [facility] hospitalist on duty at [facility] 24 hours a day by calling [phone]. Take care of yourself. Aurora Hanna DO [facility] Hospitalist Current Hospital Diet Patient's current hospital diet: Renal Diet Discharge Diet Recommended Diet: Renal Diet Procedures Procedures Performed: inpatient dialysis Pending Studies Studies pending at discharge: no Medical Emergencies . Who to Call and When: Medical Emergencies: If at any time you feel your situation is an emergency, please call 911 immediately. . Non-Emergent Contact Non-Emergency issues call your: Primary Care Provider . . "Provider Documentation" section prepared by Aurora Hanna. . VTE Core Measure Inpt VTE Proph given/why not?: Unfractionated heparin SQ
--- NOTE | 2017-01-10 13:10 | Discharge Summary ---
Discharge Summary Date of Service Jan 10, 2017. Discharge Summary Admission Date: Jan 06, 2017 at 20:33 Discharge Date: Jan 10, 2017 Discharge Disposition: Rehab Principal Diagnosis: Pathologic L pubic ring fracture ESRD on hemodialysis Anemia of ESRD HTN BPH Hyperlipidemia Procedures: Inpatient HD Vaccinations: None. Consultations: Ortho, PT Pending Studies/Follow-Up: see instructions below Medication Reconciliation Continued Medications: Atorvastatin (Lipitor) 20 Mg Tab 20 MG PO QPM, TAB Calcium Acetate (Phoslo 667 Mg) 667 Mg Cap 1 CAP PO TID for 90 Days, #270 CAP 3 Refills Cholecalciferol (Vitamin D3) 1,000 Unit Tab 1 TAB PO QAM for 90 Days, #90 TAB 3 Refills Nitroglycerin (Nitrostat) 0.4 Mg Tab 0.4 MG UT PRN, BTL Oxycodone Immediate Rel Tab (Roxicodone Ir) 5 Mg Tab 5 MG PO Q6H PRN for Pain, TAB TAKE 1 TAB FOR MODERATE PAIN, TAKE 2 TABS FOR SEVERE PAIN OR BEFORE DIALYSIS Tamsulosin Hcl (Flomax) 0.4 Mg Cap 0.4 MG PO DAILY, CAP Triamcinolone Acet (Aristocort 0.1%) 90 Appln/30 Gm Cr 1 APPL TOP BID PRN for apply in the chest and back Vitamin B Cmplx/Vitc/Folic Ac (Nephrocaps) Cap 1 CAP PO DIRECTED, CAP TAKE 1 CAP IN AM 4XWK (NON DIALYSIS DAYS) TAKE 1 CAP IN PM 3XWK (DIALYSIS DAYS) Discontinued Medications: Metoprolol Succinate (Toprol Xl) 25 Mg Tab 50 MG PO DAILY, #30 TAB Admission Information HPI (per Admitting provider): 81 year old male with PMH of ESRD ON HD, ANEMIA, HTN, Vit D def, BPH, Aortic Valve replaced presents to the Emergency Room with complaints of intermittent left upper extremity pain s/p fall occurring this morning. Pt said that this morning while he was getting out of bed, he rolled out of the bed and fell in his left side and hit his left hip. He said that he did not lose consciousness or hit his head when falling. He was unable to get up by himself after the fall. His son came to help him to get up from the floor. Pt said that he only has pain when moving the left leg. He has been unable to walk on his left leg due to the pain. Describes the pain as achy, grade 9/10, worsening with movement of the left leg. Pt denies headache, neck pain, chest pain, SOB, nausea, vomiting, abdominal pain, back pain, numbness, weakness. 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 Pathologic Pelvic fracture-CT Hip showed acute and nondistracted anterior left pubic ring fractures with trace surrounding extraperitoneal hemorrhage. There is also likely a left inferior pubic ring fracture. Ortho consult placed and they recommend nonoperative management. Pain is very well controlled at this point. Cont PT, OT ordered, plan for [facility] tomorrow. Fall precautions. 2. ESRD on HD-Nephro consulted for inpatient HD while he is here. Cont with MWF schedule. 3. Anemia of ESRD-pt is Oriental orthodox and does not want blood transfusions ; currently stable 4. HTN-controlled Pt reports lower BP after starting on HD and not requiring Toprol or Losartan. He states his PCP took him off of it and he hasn't taken it in a long time. These are not being given. 5. BPH-stable, cont Flomax 6. Hyperlipidemia-cont Lipitor By day of discharge he was mentating at baseline, tolerating PO and was pain- free. He was discharged to Rehab in stable condition. Total time spent on discharge = 60 minutes This includes examination of the patient, discharge planning, medication reconciliation, and communication with other providers. Discharge Instructions Discharge Instructions Date of Service Jan 10, 2017. Admission Reason for Admission: Fall, Fracture Of Left Pelvis Discharge Discharge Diagnosis / Problem: L pathologic pelvic fracture s/p fall Discharge Goals Goal(s): Prevent Disease Progression Activity Recommendations Activity Limitations: per Instructions/Follow-up section . Instructions / Follow-Up Instructions / Follow-Up Please take all medications as instructed. It is recommended that you follow-up with your primary care physician within one week of discharge from rehab facility. It was a pleasure taking care of you! Call if you have any questions or problems. You can reach a [facility] hospitalist on duty at [facility] 24 hours a day by calling [phone]. Take care of yourself. Aurora Hanna, DO [facility] Hospitalist Additional Copies To Virgil Johnson M.D. (MEDICAL)
== END 2017-01-10 16:00 | DRG 542 ==
LOC: EDBD 16:49 → C.EDB 16:51 → C.MSN 20:33 → ENRESERV 20:46
PROVIDERS: ADMIT Internal Medicine; ATTEND Hospitalist
PROC: 5A1D00Z (ICD-10-PCS; principal; 2017-01-08)
DX: M84.454A Pathological fracture, pelvis, initial encounter for fracture (principal); N18.6 End stage renal disease; I12.0 Hypertensive chronic kidney disease with stage 5 chronic kidney disease or end stage renal disease; E78.5 Hyperlipidemia, unspecified; D64.9 Anemia, unspecified; W19.XXXA Unspecified fall, initial encounter; Z95.0 Presence of cardiac pacemaker

== ENCOUNTER 2017-11-12 17:07 | Observation (INO) | payer OTHER ==
[~2017-11-12] VITALS: Ht 172.7 cm; Wt 88.0 kg
[~2017-11-12 17:07] MED LIST changes: -ACET325T96 PO; -BISA10SU38 PR; -DICY10CA55 PO; -HYDR25SU20 PR; -LOSA25TA18 PO; -METO50TA7 PO; -MOML PO; +NTRGSL/4 UT; -PSYL48.59 PO; -SODIENE PR; -SUPPLEMENT SHAKE PO; -TRAZ50TA35 PO; +TRMCR130WC TOP
[2017-11-12 17:41] LABS: BASO % 0.1 %; BASO ABS # 0.01 K/uL (0-0.2); EOS % 0.1 %; EOS ABS # 0.01 K/uL (0-0.5); HEMATOCRIT 43.9 % (42-52); HEMOGLOBIN 14.2 g/dL (14.0-18.0); IG# 0.04 K/uL (0.00-0.02); LYMPH % 5.9 %; LYMPH ABS # 0.88 K/uL (1.2-3.4); MEAN CORPUSCULAR HEMOGLOBIN 24.9 pg (25-34); MEAN CORPUSCULAR HGB CONC 32.3 g/dl (32-36); MONO % 5.9 %; MONO ABS # 0.87 K/uL (0.11-0.59); NEUT % 87.7 %; NEUT ABS # 13.06 K/uL (1.4-6.5); PLATELET COUNT 151 K/uL (130-400); RED CELL DISTRIBUTION WIDTH CV 15.8 % (11.5-14.5); RED CELL DISTRIBUTION WIDTH SD 43.7 fL (36.4-46.3); WHITE BLOOD COUNT 14.87 K/uL (4.8-10.8)
[2017-11-12 17:50] LABS: INR 1.2 (0.9-1.1); PTT PATIENT 26.7 SECONDS (21.0-31.0)
--- NOTE | 2017-11-12 17:50 | DIAGNOSTIC IMAGING REPORT ---
CHEST ONE VIEW PORTABLE CLINICAL HISTORY: EVALUATE ALTERED MENTAL STATUS/WEAKNESS dyspnea COMPARISON STUDY: 08/26/2016 FINDINGS: Moderate cardiomegaly. Prior median sternotomy. Permanent bipolar cardiac pacemaker. Lungs are clear. IMPRESSION: Moderate cardiomegaly. No acute process. Incidental note is made of an old healed fracture left humeral neck. The above report was generated using voice recognition software. It may contain grammatical, syntax or spelling errors. Electronically signed by: Romaine Fine M.D. 11/12/2017 5:49 PM Dictated Date/Time: 11/12/2017 5:48 PM
--- NOTE | 2017-11-12 17:56 | EMERGENCY ROOM VISIT NOTE ---
History Report prepared by Ynes: Ama Daily Under the Supervision of: Anant AvitiaO. First contact with patient: 17:16 Chief Complaint: ABDOMINAL PAIN Stated Complaint: SICK,HARD PAINS IN LOWER ABD History of Present Illness The patient is a 82 year old male who presents to the Emergency Room with complaints of persistent sharp pain in his lower abdomen which began 3 days ago. His reports that the patient swallowed foil along with his pill 3 days ago and has been experiencing lower abdominal pain since then. He states that he has been nauseous and vomiting since then. The patient denies any recent fevers, chills, or urinary symtpoms. He notes that his last bowel movement was about 2 days ago. The patient reports that his pain remained the same throughout his dialysis treatment earlier today. He notes that he has a pacemaker in place and was diagnosed with shingles about 2 months ago. The patient reports a history of hernias and an open heart surgery. Source of History: patient Onset: 3 days ago Position: abdomen (lower) Symptom Intensity: sharp Quality: other (lower abdominal pain) Timing: other (persistent) Associated Symptoms: + nausea, + vomiting, No fevers, No chills, No urinary symptoms Review of Systems See HPI for pertinent positives & negatives. A total of 10 systems reviewed and were otherwise negative. 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 (2) ASCVD (arteriosclerotic cardiovascular disease) (3) BPH (benign prostatic hyperplasia) (4) Dyslipidemia (5) ESRD on dialysis (6) HTN (hypertension) (7) Leukocytosis (8) Pacemaker (9) Renal calculi Surgical Problems: (1) Aortic valve replaced (2) H/O inguinal hernia repair (3) History of cataract surgery (4) History of tonsillectomy (5) Hx of CABG Social History Problems: (1) Refusal of blood transfusions as patient is Rastafarian Family History FHx: cancer FHx: heart disease FHx: hypertension FHx: kidney disease Social History Smoking Status: Former Smoker Alcohol Use: none Drug Use: none Marital Status: Housing Status: lives with significant other Occupation Status: retired Current/Historical Medications Scheduled Atorvastatin (Lipitor), 20 MG PO QPM Calcium Acetate (Phoslo 667 Mg), 1 CAP PO TID Nitroglycerin (Nitrostat), 0.4 MG UT PRN Prednisone (Prednisone), 10 MG PO DAILY Tamsulosin Hcl (Flomax), 0.4 MG PO DAILY Vitamin B Cmplx/Vitc/Folic Ac (Nephrocaps), 1 CAP PO DIRECTED Scheduled PRN Oxycodone Immediate Rel Tab (Roxicodone Ir), 5 MG PO Q6H PRN for Pain Allergies Coded Allergies: NO KNOWN DRUG ALLERGIES (Verified Allergy, Unknown, ., 01/06/17) Physical Exam Vital Signs Date Time Temp Pulse Resp B/P (MAP) Pulse Ox O2 Delivery O2 Flow Rate FiO2 11/12/17 20:17 100 24 89/56 98 Room Air 11/12/17 18:43 96 20 106/51 93 Room Air 11/12/17 17:44 84 11/12/17 17:31 97 Room Air 11/12/17 17:10 37.2 98 16 107/59 96 Room Air Physical Exam GENERAL: Patient is awake, alert, and in no acute distress. Patient somewhat anxious appearing and uncomfortable EYES: The conjunctivae are clear. The pupils are round and reactive. EARS, NOSE, MOUTH AND THROAT: The nose is without any evidence of any deformity. Mucous membranes are moist tongue is midline NECK: The neck is nontender and supple. RESPIRATORY: Normal respiratory effort is noted there is no evidence of wheezing rhonchi or rales CARDIOVASCULAR: Regular rate and rhythm noted there no murmurs rubs or gallops normal S1 normal S2 GASTROINTESTINAL: Abdomen is morbidly distended and diffusely tender, tenderness in both lower quadrants. Bowel sounds are present in all quadrants. MUSCULOSKELETAL/EXTREMITIES: There is no evidence of gross deformity full range of motion is noted in the hips and shoulders SKIN: Pedal edema bilaterally. There is no obvious evidence of any rash. There are no petechiae, pallor or cyanosis noted. NEUROLOGIC: Patient is awake alert and oriented x3 Medical Decision & Procedures ER Provider Diagnostic Interpretation: Radiology results as stated below per my review and radiologist interpretation: CHEST ONE VIEW PORTABLE CLINICAL HISTORY: EVALUATE ALTERED MENTAL STATUS/WEAKNESS dyspnea COMPARISON STUDY: 08/26/2016 FINDINGS: Moderate cardiomegaly. Prior median sternotomy. Permanent bipolar cardiac pacemaker. Lungs are clear. IMPRESSION: Moderate cardiomegaly. No acute process. Incidental note is made of an old healed fracture left humeral neck. The above report was generated using voice recognition software. It may contain grammatical, syntax or spelling errors. Electronically signed by: Romaine Fine M.D. 11/12/2017 5:49 PM Dictated Date/Time: 11/12/2017 5:48 PM ABD/PELVIS NO IV OR ORAL CONT CT DOSE: 596.48 mGy.cm HISTORY: Pain lower abd pain TECHNIQUE: Multiaxial CT images of the abdomen and pelvis were performed without contrast. A dose lowering technique was utilized adhering to the principles of ALARA. COMPARISON STUDY: 08/29/2016 FINDINGS: Minimal dependent basilar atelectasis. Liver spleen and pancreas are unremarkable. Several small gallstones. Moderately atrophic pancreas. Atrophy left kidney with associated staghorn calculus. This is unchanged. Moderate atrophy right kidney. There is also unchanged. General abscess chronic change and mild ectasia the abdominal aorta. Apparent suture line in the right lower quadrant associated with several diverticuli. Potential extrinsic air bubble adjacent to the suture line which is appears to be intraluminal on reconstructed images. Rectosigmoid shows considerable increase in fecal load with evidence for considerable rectal fecal impaction. IMPRESSION: 1. Considerable rectal fecal impaction. 2. Considerable increase in fecal load throughout the sigmoid. 3. Nonobstructive bowel pattern with only a minimal component of nonobstructive ileus. 4. Atrophy of the kidneys bilaterally with evidence for a pre-existing staghorn calculus the left kidney. 5. Several small gallstones. 6. Minimal dependent basilar atelectasis. The above report was generated using voice recognition software. It may contain grammatical, syntax or spelling errors. Electronically signed by: Romaine Fine M.D. 11/12/2017 6:19 PM Dictated Date/Time: 11/12/2017 6:13 PM Laboratory Results 11/12/17 17:29 Red Blood Count 5.70, Mean Corpuscular Volume 77.0, Mean Corpuscular Hemoglobin 24.9, Mean Corpuscular Hemoglobin Concent 32.3, Neutrophils (%) (Auto) 87.7, Lymphocytes (%) (Auto) 5.9, Monocytes (%) (Auto) 5.9, Eosinophils (%) (Auto) 0.1 , Basophils (%) (Auto) 0.1, Neutrophils # (Auto) 13.06, Lymphocytes # (Auto) 0.88, Monocytes # (Auto) 0.87, Eosinophils # (Auto) 0.01, Basophils # (Auto) 0.01 11/12/17 17:29 Test 11/12/17 17:29 11/12/17 18:50 White Blood Count 14.87 K/uL (4.8-10.8) Red Blood Count 5.70 M/uL (4.7-6.1) Hemoglobin 14.2 g/dL (14.0-18.0) Hematocrit 43.9 % (42-52) Mean Corpuscular Volume 77.0 fL (80-100) Mean Corpuscular Hemoglobin 24.9 pg (25-34) Mean Corpuscular Hemoglobin Concent 32.3 g/dl (32-36) Platelet Count 151 K/uL (130-400) Neutrophils (%) (Auto) 87.7 % Lymphocytes (%) (Auto) 5.9 % Monocytes (%) (Auto) 5.9 % Eosinophils (%) (Auto) 0.1 % Basophils (%) (Auto) 0.1 % Neutrophils # (Auto) 13.06 K/uL (1.4-6.5) Lymphocytes # (Auto) 0.88 K/uL (1.2-3.4) Monocytes # (Auto) 0.87 K/uL (0.11-0.59) Eosinophils # (Auto) 0.01 K/uL (0-0.5) Basophils # (Auto) 0.01 K/uL (0-0.2) RDW Standard Deviation 43.7 fL (36.4-46.3) RDW Coefficient of Variation 15.8 % (11.5-14.5) Immature Granulocyte % (Auto) 0.3 % Immature Granulocyte # (Auto) 0.04 K/uL (0.00-0.02) Prothrombin Time 12.1 SECONDS (9.0-12.0) Prothromb Time International Ratio 1.2 (0.9-1.1) Activated Partial Thromboplast Time 26.7 SECONDS (21.0-31.0) Partial Thromboplastin Ratio 1.0 Anion Gap 7.0 mmol/L (3-11) Est Creatinine Clear Calc Drug Dose 16.1 ml/min Estimated GFR () 16.1 Estimated GFR (Non- 13.9 BUN/Creatinine Ratio 5.9 (10-20) Calcium Level 8.9 mg/dl (8.5-10.1) Phosphorus Level 2.2 mg/dl (2.5-4.9) Magnesium Level 2.1 mg/dl (1.8-2.4) Total Bilirubin 1.3 mg/dl (0.2-1) Direct Bilirubin 0.4 mg/dl (0-0.2) Aspartate Amino Transf (AST/SGOT) 49 U/L (15-37) Alanine Aminotransferase (ALT/SGPT) 63 U/L (12-78) Alkaline Phosphatase 150 U/L (45-117) Troponin I 0.248 ng/ml (0-0.045) Pro-B-Type Natriuretic Peptide > 29341 pg/ml (0-1800) Total Protein 8.2 gm/dl (6.4-8.2) Albumin 3.5 gm/dl (3.4-5.0) Lipase 66 U/L (73-393) Thyroid Stimulating Hormone (TSH) 2.310 uIu/ml (0.300-4.500) Urine Color YELLOW Urine Appearance CLEAR (CLEAR) Urine pH >= 9.0 (4.5-7.5) Urine Specific [place] 1.013 (1.000-1.030) Urine Protein 2+ (NEG) Urine Glucose (UA) TRACE (NEG) Urine Ketones NEG (NEG) Urine Occult Blood TRACE (NEG) Urine Nitrite NEG (NEG) Urine Bilirubin NEG (NEG) Urine Urobilinogen NEG (NEG) Urine Leukocyte Esterase TRACE (NEG) Urine WBC (Auto) 5-10 /hpf (0-5) Urine RBC (Auto) 5-10 /hpf (0-4) Urine Hyaline Casts (Auto) 1-5 /lpf (0-5) Urine Epithelial Cells (Auto) 5-10 /lpf (0-5) Urine Bacteria (Auto) NEG (NEG) Laboratory results per my review. ECG Per My Interpretation Indication: abdominal pain Rate (beats per minute): 97 Rhythm: other (atrial sensed pacemaker ) Findings: LBBB, PVC Comparison ECG Date: paced rhythm has replaced a1st degree AV block, compared to 08/28/16 ED Course 171: The patient was evaluated in room C7. A complete history and physical examination were performed. 1859: I discussed the patient's case with [facility]. The patient will be evaluated for further management. 1911: I reevaluated the patient and updated him on test findings and the treatment plan. He verbalized complete understanding and agreement. Medical Decision Prior records/ancillary studies reviewed. Triage Nursing notes reviewed. The patient's history was concerning for abdominal pain. Differential diagnosis: Etiologies such as appendicitis, diverticulitis, PUD, biliary pathology, UTI, pancreatitis, obstruction, mesenteric ischemia, aortic pathology, infections, inflammatory bowel disease, renal colic, as well as others were entertained. The patient is an 82-year-old male who presented to the emergency department for abdominal pain. The patient very significant abdominal pain on physical exam. I discussed patient's laboratory and radiographic studies with him and his family members. Patient has a history of end-stage renal disease requiring dialysis. The patient did not wish to have any pain medication and given his findings on CT I am not sure that he would do well with the narcotic pain medication at this time. Initially I discussed outpatient treatment for this condition however the family members are very concerned about patient being discharged home. For this reason I discussed this case with [facility]. I am concerned about the patient's overall pain. I am unsure that this is definitely associated with the fecal impaction but I would reevaluate the patient once this has been addressed. Medication Reconcilliation Current Medication List: was personally reviewed by me Blood Pressure Screening Patient's blood pressure: Low blood pressure Blood pressure disposition: Did not require urgent referral (monitored by hospitalist) Consults Time Called: 1858 Consulting Physician: [facility] No[facility] Returned Call: 1858 I discussed the patient's case with [facility] No[facility]. The patient will be evaluated for further management. Impression Primary Impression: Abdominal pain Additional Impressions: Elevated troponin Elevated white blood cell count Fecal impaction End stage renal disease Scribe Attestation The scribe's documentation has been prepared under my direction and personally reviewed by me in its entirety. I confirm that the note above accurately reflects all work, treatment, procedures, and medical decision making performed by me. Departure Information Referrals Virgil Johnson M.D. (MEDICAL) (PCP) Forms HOME CARE DOCUMENTATION FORM, IMPORTANT VISIT INFORMATION Patient Instructions My [facility] Problem Qualifiers Primary Impression: Abdominal pain Abdominal location: generalized Qualified Codes: R10.84 - Generalized abdominal pain Additional Impressions: Elevated white blood cell count Leukocytosis type: unspecified Qualified Codes: D72.829 - Elevated white blood cell count, unspecified
[2017-11-12 18:01] LABS: ALBUMIN 3.5 gm/dl (3.4-5.0); ALT/SGPT 63 U/L (12-78); AST/SGOT 49 U/L (15-37); BLOOD UREA NITROGEN 22 mg/dl (7-18); CALCIUM 8.9 mg/dl (8.5-10.1); CARBON DIOXIDE 29 mmol/L (21-32); CREATININE 3.77 mg/dl (0.60-1.40); GLUCOSE 118 mg/dl (70-99); LIPASE 66 U/L (73-393); POTASSIUM 4.5 mmol/L (3.5-5.1); SODIUM 136 mmol/L (136-145)
[2017-11-12 18:13] LABS: ALKALINE PHOSPHATASE 150 U/L (45-117); PHOSPHORUS 2.2 mg/dl (2.5-4.9); TOTAL PROTEIN 8.2 gm/dl (6.4-8.2)
--- NOTE | 2017-11-12 18:21 | DIAGNOSTIC IMAGING REPORT ---
ABD/PELVIS NO IV OR ORAL CONT CT DOSE: 596.48 mGy.cm HISTORY: Pain lower abd pain TECHNIQUE: Multiaxial CT images of the abdomen and pelvis were performed without contrast. A dose lowering technique was utilized adhering to the principles of ALARA. COMPARISON STUDY: 08/29/2016 FINDINGS: Minimal dependent basilar atelectasis. Liver spleen and pancreas are unremarkable. Several small gallstones. Moderately atrophic pancreas. Atrophy left kidney with associated staghorn calculus. This is unchanged. Moderate atrophy right kidney. There is also unchanged. General abscess chronic change and mild ectasia the abdominal aorta. Apparent suture line in the right lower quadrant associated with several diverticuli. Potential extrinsic air bubble adjacent to the suture line which is appears to be intraluminal on reconstructed images. Rectosigmoid shows considerable increase in fecal load with evidence for considerable rectal fecal impaction. IMPRESSION: 1. Considerable rectal fecal impaction. 2. Considerable increase in fecal load throughout the sigmoid. 3. Nonobstructive bowel pattern with only a minimal component of nonobstructive ileus. 4. Atrophy of the kidneys bilaterally with evidence for a pre-existing staghorn calculus the left kidney. 5. Several small gallstones. 6. Minimal dependent basilar atelectasis. The above report was generated using voice recognition software. It may contain grammatical, syntax or spelling errors. Electronically signed by: Romaine Fine M.D. 11/12/2017 6:19 PM Dictated Date/Time: 11/12/2017 6:13 PM
[2017-11-12] MEDS ORDERED: PRED10TA PO (19:49)
[2017-11-12] MEDS ORDERED: LACTULOSE SYRUP 30 GM/45 ML UDP PO STA (20:57)
[2017-11-12] MEDS ORDERED: BISACODYL 10 MG SUPP PR STA (20:57)
[2017-11-12] MEDS ORDERED: ALUMINUM/MAGNESIUM/SIMETH (MAALOX MAX) 30 ML UDC PO PRN (21:00)
[2017-11-12] MEDS ORDERED: DOCUSATE SODIUM/SENNA 50/8.6MG TAB PO SCH (21:00)
[2017-11-12] MEDS ORDERED: NITROGLYCERIN 0.4 MG SL PER TAB CHARGE UT SCH (21:00)
[2017-11-12] MEDS ORDERED: ACETAMINOPHEN 325 MG TAB PO PRN (21:00)
[2017-11-12] MEDS ORDERED: OXYCODONE HCL IR 5 MG TAB (IMMEDIATE RELEASE) PO PRN (21:00)
[2017-11-12] MEDS ORDERED: ATORVASTATIN 20 MG TAB PO SCH (21:00)
[2017-11-12] MEDS ORDERED: LACTULOSE SYRUP 20 GM/30 ML UDC ONE (21:15)
[2017-11-12] MEDS ORDERED: BISACODYL 10 MG SUPP ONE (21:15)
[2017-11-12] MEDS: CALCIUM ACETATE 667MG GELCAP PO SCH (22:47)
[2017-11-12] MEDS: HEPARIN SOD 5000 UNIT/0.5 ML CARP SQ SCH (22:51)
[2017-11-12 23:14] VITALS: BP 124/89; PULSE 103; TEMP 36.7; O2SAT 93; Ht 172.7 cm; Wt 88.0 kg
[2017-11-12] MEDS: ONDANSETRON INJ 2 MG/ML 2 ML VIAL IV PRN (23:31)
--- NOTE | 2017-11-13 00:58 | HISTORY & PHYSICAL EXAMINATION ---
DATE OF ADMISSION: 11/12/2017 CHIEF COMPLAINT: Abdominal pain. HISTORY OF PRESENT ILLNESS: This 82-year-old male with past medical history significant for end-stage renal disease on hemodialysis, anemia of chronic disease, BPH, bullous pemphigoid, secondary hyperparathyroidism of renal origin, hypertension, aortic valve replacement, cardiac pacemaker, ambulatory dysfunction since his left pelvic fracture last year, was brought in because of abdominal pain since last Sunday. The patient is having severe lower abdominal pain. Last bowel movement was last Sunday and constipated since he is on pain medications, but is not taking any stool softeners because he is worried that during dialysis he will have bowel movement. Appetite is okay. Yesterday, he was nauseous, but currently no nausea. Denies any headaches, no dizziness, no blurred vision, somewhat hard of hearing. No ear pain, no runny nose, no sore throat. He says lately he has some difficulty swallowing on and off, but no cough while eating. Denies any cough. Ambulatory, walks with a walker at home, but ambulatory status is poor since his pelvic fracture, some mild swelling in the lower extremities. No rash seen. Hemodynamically stable. ALLERGIES: No known drug allergies. PAST MEDICAL HISTORY: As mentioned above. PAST SURGICAL HISTORY: CABG, colonoscopy, pacemaker insertion, removal of tunneled catheter, cataract surgery, tonsillectomy, adenoidectomy, right inguinal hernia repair, aortic valve replacement with prosthetic valve. MEDICATIONS: Patient is on Lipitor 40 mg p.o. daily, calcium acetate 667 mg 2 capsules 3 times daily, nitroglycerin 0.4 mg sublingual p.r.n., oxycodone IR 7.5 mg with Tylenol p.r.n., prednisone 10 mg p.o. daily, Flomax 0.4 mg p.o. daily. FAMILY HISTORY: Significant for father, hypertension. Mother had stroke. Father had stroke at the age of 59. Brother had fatal OH in late 60s. Another brother had cancer. SOCIAL HISTORY: Never smoked. No alcohol use. No drug use. Lives with . REVIEW OF SYMPTOMS: As per HPI. Rest of review of symptoms negative. PHYSICAL EXAMINATION: GENERAL: Patient is of moderate build, not in distress. VITAL SIGNS: Temperature 37.2, pulse 96, respiratory rate 20, blood pressure 106/51, oxygen 93% on room air. HEENT: No pallor, no icterus. Pupils equal, round, and reactive to light. NECK: No JVD, no neck masses, no carotid bruit. CARDIOVASCULAR: S1, S2 heard, regular rate and rhythm, no murmur, no gallop. RESPIRATORY SYSTEM: Normal AP diameter. No accessory muscle use. No wheezing, no crackles. ABDOMEN: Soft, bowel sounds present. Mild lower abdominal discomfort. No guarding was noted. No distention. CENTRAL NERVOUS SYSTEM: Cranial nerves II-XII grossly nonfocal. EXTREMITIES: Lower extremity edema present, no erythema seen. LABORATORIES: WBC 14, hemoglobin 14.2, hematocrit 43.9, platelets 151. Sodium 136, potassium 4.5, chloride 100, bicarbonate 29, BUN 22, creatinine 3.7, serum glucose 118, calcium 8.9, phosphorus 2.2, magnesium 2.1, total bilirubin 1.3, direct bilirubin 0.4, AST 49, ALT 63, alkaline phosphatase 150. Troponin I 0.24. BNP greater than 35,000. TSH 2.3. Urinalysis, positive for trace leukocyte esterase. CT of abdomen and pelvis shows rectal fecal impaction, considerable increase in fecal load throughout the sigmoid, nonobstructive bowel pattern with only minimal nonobstructive ileus, atrophic kidneys bilaterally with evidence of preexisting staghorn calculus of the left kidney, several small gallstones, minimal bibasilar atelectasis. Chest x-ray, no acute process seen. EKG: Atrial sensed ventricular paced rhythm with PVCs at a rate of 97. ASSESSMENT AND PLAN: This is an 82-year-old male who presents with abdominal pain, found to have fecal impaction and constipation. 1. Abdominal pain mostly secondary to fecal impaction and constipation. The patient is on pain medicines since his pelvic fracture from last year, not taken stool softeners because he is worried about diarrhea during dialysis. We will place him on bowel regimen with Senokot-S 2 tablets at bedtime. For now, we will give lactulose tonight and in the morning and also Dulcolax suppository if no bowel movement by these measures, we will plan for enema. Monitor on the medical floor. 2. History of coronary artery disease, status post coronary artery bypass graft, on statin, asymptomatic. 3. Mild elevation in troponin, mostly from renal failure. The patient is asymptomatic. We will repeat labs in the a.m. 4. End-stage renal disease, on hemodialysis. Had dialysis today. 5. Anemia of chronic disease. Hemoglobin is stable at 14.2. 6. Benign prostatic hypertrophy. Continue Flomax. 7. Hyperlipidemia. Continue statin. 8. History of hypertension, not on any medication. Goal is 150/90. We will monitor the blood pressure. 9. History of bullous pemphigoid, on prednisone, which we will continue. 10. History of left pelvic fracture last year in December 2016. Ambulatory dysfunction from it, on pain medication chronically. We will do PT/OT and monitor. 11. Dysphagia. on and off. speech Evaluation 12. Deep venous thrombosis prophylaxis. Heparin subQ. DISPOSITION: Observe on medical floor. PT and OT prior to discharge planning. Social service to help with discharge planning. Code status, level 1 full code. MTDD
[2017-11-13] MEDS ORDERED: IV FLUIDS COMPLETED PRN (01:00)
[2017-11-13] MEDS: ONDANSETRON INJ 2 MG/ML 2 ML VIAL IV PRN (05:45)
[2017-11-13] MEDS: HEPARIN SOD 5000 UNIT/0.5 ML CARP SQ SCH ×2 (05:47→13:10)
[2017-11-13 06:44] LABS: MEAN CORPUSCULAR HGB CONC 32.4 g/dl (32-36)
[2017-11-13 06:51] LABS: CALCIUM 8.2 mg/dl (8.5-10.1); CREATININE 4.36 mg/dl (0.60-1.40); HEMATOCRIT 37.3 % (42-52); HEMOGLOBIN 12.1 g/dL (14.0-18.0); MEAN CELL VOLUME 76.3 fL (80-100); MEAN CORPUSCULAR HEMOGLOBIN 24.7 pg (25-34); POTASSIUM 4.9 mmol/L (3.5-5.1); RED CELL DISTRIBUTION WIDTH CV 15.7 % (11.5-14.5); RED CELL DISTRIBUTION WIDTH SD 43.3 fL (36.4-46.3); WHITE BLOOD COUNT 12.07 K/uL (4.8-10.8)
[2017-11-13] MEDS ORDERED: LACTULOSE SYRUP 30 GM/45 ML UDP PO ONE (07:00)
[2017-11-13 07:21] LABS: PLATELET COUNT 125 K/uL (130-400)
[2017-11-13 07:22] LABS: BASO % 0.2 %; BASO ABS # 0.02 K/uL (0-0.2); EOS % 0.3 %; EOS ABS # 0.04 K/uL (0-0.5); IG# 0.02 K/uL (0.00-0.02); LYMPH % 5.9 %; LYMPH ABS # 0.71 K/uL (1.2-3.4); MONO % 4.6 %; MONO ABS # 0.56 K/uL (0.11-0.59); NEUT % 88.8 %; NEUT ABS # 10.72 K/uL (1.4-6.5)
[2017-11-13 07:23] VITALS: BP 130/66; PULSE 94; TEMP 36.8; O2SAT 95
[2017-11-13] MEDS ORDERED: PNEUMOCOCCAL ADMINISTRATION CHARGE ONE (08:00)
[2017-11-13] MEDS ORDERED: PNEUMOCOCCAL POLYSACCHARIDES 25 MCG/0.5 ML VIAL/SYR IM. ONE (08:00)
[2017-11-13] MEDS ORDERED: NEPHROCAPS PO SCH (08:00)
[2017-11-13] MEDS ORDERED: TAMSULOSIN HCL 0.4 MG CAP PO SCH (08:00)
[2017-11-13] MEDS: CALCIUM ACETATE 667MG GELCAP PO SCH ×2 (09:02→11:43)
--- NOTE | 2017-11-13 12:05 | Progress Note ---
Internal Med Progress Note Date of Service: November 13, 2017. Provider Documentation: SUBJECTIVE: Patient reports that after bowel regimen was given to him, he has made bowel movements yesterday night and today. Patient's nurse also confirming this. Patient denies acute abdominal discomfort of pain elsewhere today . Patient denies dysphagia. Has no problems with fluids and willing to start solid diet with meals. OBJECTIVE: GENERAL: not in distress. HEENT: No pallor, no icterus. Pupils equal, round, and reactive to light. NECK: No JVD, no neck masses, no carotid bruit. CARDIOVASCULAR: S1, S2 heard, regular rate and rhythm, no murmur, no gallop. RESPIRATORY SYSTEM: clear to auscultation. No accessory muscle use. No wheezing, no crackles. ABDOMEN: Soft, bowel sounds present. no acute tenderness to palpation EXTREMITIES: trace lower extremity edema ASSESSMENT & PLAN: This is an 82-year-old male with abdominal secondary to constipation and fecal impaction. Patient has made bowel movements since he was given bowel regimen with Senokot- S 2 tablets at bedtime, lactulose, and Dulcolax suppository Patient has history of coronary artery disease with status post coronary artery bypass and troponin levels (0.248, 0.216) above reference levels of normal however these serum levels are likely due to the renal failure and patient has had elevated tropinins seen in previous hospitalizations. Patient denies chest pain End-stage renal disease, on hemodialysis and has dialysis on 11/12/17. Patient was evaluated by nephrology service in the hospital Anemia of chronic disease. Hemoglobin 14.2 to 12.1. Recommend outpatient follow labs as needed with outpatient dialysis labs Benign prostatic hypertrophy, on Flomax. Hyperlipidemia, on statin. History of hypertension, not on any medication. Blood pressure controlled History of bullous pemphigoid, on prednisone History of left pelvic fracture last year in December 2016, on pain medications Discharge Instructions Patient was evaluated at [facility] with resolution of abdominal discomfort after making bowel movements. Patient is advised to avoid Imodium for now. Patient is to be given discharge prescriptions with bowel regimen to prevent future constipation. Patient should resume dialysis session as per usual on Sunday and follow up on with primary care doctor: 11/15/2017 2:00 PM Virgil Johnson MD [facility] Vital Signs: Date Time Temp Pulse Resp B/P (MAP) Pulse Ox O2 Delivery O2 Flow Rate FiO2 11/13/17 08:00 Room Air 11/13/17 07:23 36.8 94 16 130/66 (87) 95 Room Air 11/13/17 00:15 Room Air 11/12/17 23:14 36.7 103 24 124/89 93 Room Air 11/12/17 21:32 96 23 124/89 98 Room Air 11/12/17 20:17 100 24 89/56 98 Room Air 11/12/17 18:43 96 20 106/51 93 Room Air 11/12/17 17:44 84 11/12/17 17:31 97 Room Air 11/12/17 17:10 37.2 98 16 107/59 96 Room Air Lab Results: Results Past 24 Hours Test 11/12/17 17:29 11/12/17 18:50 11/13/17 06:05 Range/Units White Blood Count 14.87 12.07 4.8-10.8 K/uL Red Blood Count 5.70 4.89 4.7-6.1 M/uL Hemoglobin 14.2 12.1 14.0-18.0 g/dL Hematocrit 43.9 37.3 42-52 % Mean Corpuscular Volume 77.0 76.3 80-100 fL Mean Corpuscular Hemoglobin 24.9 24.7 25-34 pg Mean Corpuscular Hemoglobin Concent 32.3 32.4 32-36 g/dl Platelet Count 151 125 130-400 K/uL Neutrophils (%) (Auto) 87.7 88.8 % Lymphocytes (%) (Auto) 5.9 5.9 % Monocytes (%) (Auto) 5.9 4.6 % Eosinophils (%) (Auto) 0.1 0.3 % Basophils (%) (Auto) 0.1 0.2 % Neutrophils # (Auto) 13.06 10.72 1.4-6.5 K/uL Lymphocytes # (Auto) 0.88 0.71 1.2-3.4 K/uL Monocytes # (Auto) 0.87 0.56 0.11-0.59 K/uL Eosinophils # (Auto) 0.01 0.04 0-0.5 K/uL Basophils # (Auto) 0.01 0.02 0-0.2 K/uL RDW Standard Deviation 43.7 43.3 36.4-46.3 fL RDW Coefficient of Variation 15.8 15.7 11.5-14.5 % Immature Granulocyte % (Auto) 0.3 0.2 % Immature Granulocyte # (Auto) 0.04 0.02 0.00-0.02 K/uL Prothrombin Time 12.1 9.0-12.0 SECONDS Prothromb Time International Ratio 1.2 0.9-1.1 Activated Partial Thromboplast Time 26.7 21.0-31.0 SECONDS Partial Thromboplastin Ratio 1.0 Sodium Level 136 136 136-145 mmol/L Potassium Level 4.5 4.9 3.5-5.1 mmol/L Chloride Level 100 102 98-107 mmol/L Carbon Dioxide Level 29 26 21-32 mmol/L Anion Gap 7.0 8.0 3-11 mmol/L Blood Urea Nitrogen 22 30 7-18 mg/dl Creatinine 3.77 4.36 0.60-1.40 mg/dl Est Creatinine Clear Calc Drug Dose 16.1 13.8 ml/min Estimated GFR () 16.1 13.5 Estimated GFR (Non- 13.9 11.7 BUN/Creatinine Ratio 5.9 6.9 10-20 Random Glucose 118 123 70-99 mg/dl Calcium Level 8.9 8.2 8.5-10.1 mg/dl Phosphorus Level 2.2 2.5-4.9 mg/dl Magnesium Level 2.1 1.9 1.8-2.4 mg/dl Total Bilirubin 1.3 0.2-1 mg/dl Direct Bilirubin 0.4 0-0.2 mg/dl Aspartate Amino Transf (AST/SGOT) 49 15-37 U/L Alanine Aminotransferase (ALT/SGPT) 63 12-78 U/L Alkaline Phosphatase 150 45-117 U/L Troponin I 0.248 0.218 0-0.045 ng/ml Pro-B-Type Natriuretic Peptide > 64551 0-1800 pg/ml Total Protein 8.2 6.4-8.2 gm/dl Albumin 3.5 3.4-5.0 gm/dl Lipase 66 73-393 U/L Thyroid Stimulating Hormone (TSH) 2.310 0.300-4.500 uIu/ml Urine Color YELLOW Urine Appearance CLEAR CLEAR Urine pH >= 9.0 4.5-7.5 Urine Specific [place] 1.013 1.000-1.030 Urine Protein 2+ NEG Urine Glucose (UA) TRACE NEG Urine Ketones NEG NEG Urine Occult Blood TRACE NEG Urine Nitrite NEG NEG Urine Bilirubin NEG NEG Urine Urobilinogen NEG NEG Urine Leukocyte Esterase TRACE NEG Urine WBC (Auto) 5-10 0-5 /hpf Urine RBC (Auto) 5-10 0-4 /hpf Urine Hyaline Casts (Auto) 1-5 0-5 /lpf Urine Epithelial Cells (Auto) 5-10 0-5 /lpf Urine Bacteria (Auto) NEG NEG Platelet Estimate DECREASED Hypochromasia PRESENT Ovalocytes 1+ Microbiology Results 11/12/17 MRSA DNA Surveillance Screen - Final, Complete Specimen Negative for MRSA by DNA Probe
[2017-11-13] MEDS ORDERED: SENN8.6T7 PO ×2 (12:36→12:50)
[2017-11-13] MEDS ORDERED: MRLP17X OR ×2 (12:36→12:50)
--- NOTE | 2017-11-13 12:57 | Discharge Instructions ---
Discharge Instructions Date of Service November 13, 2017. Admission Reason for Admission: Abdominal Pain, Fecal Impaction Discharge Discharge Diagnosis / Problem: abdominal pain, constipation, fecal impaction, ESRD on dialysis Discharge Goals Goal(s): Decrease discomfort Activity Recommendations Activity Limitations: per Instructions/Follow-up section Shower/Bathe: no limitations . Instructions / Follow-Up Instructions / Follow-Up This is an 82-year-old male with abdominal secondary to constipation and fecal impaction. Patient has made bowel movements since he was given bowel regimen with Senokot- S 2 tablets at bedtime, lactulose, and Dulcolax suppository Patient has history of coronary artery disease with status post coronary artery bypass and troponin levels (0.248, 0.216) above reference levels of normal however these serum levels are likely due to the renal failure and patient has had elevated tropinins seen in previous hospitalizations. Patient denies chest pain End-stage renal disease, on hemodialysis and has dialysis on 11/12/17. Patient was evaluated by nephrology service in the hospital Anemia of chronic disease. Hemoglobin 14.2 to 12.1. Recommend outpatient follow labs as needed with outpatient dialysis labs Benign prostatic hypertrophy, on Flomax. Hyperlipidemia, on statin. History of hypertension, not on any medication. Blood pressure controlled History of bullous pemphigoid, on prednisone History of left pelvic fracture last year in December 2016, on pain medications Discharge Instructions Patient was evaluated at [facility] with resolution of abdominal discomfort after making bowel movements. Patient is advised to avoid Imodium for now. Patient is to be given discharge prescriptions with bowel regimen to prevent future constipation. Patient should resume dialysis session as per usual on Sunday and follow up on with primary care doctor: 11/15/2017 2:00 PM Virgil Johnson MD [facility] Diet Patient's current hospital diet: Renal Diet, AHA Diet (Heart Healthy) Discharge Diet Recommended Diet: AHA Diet (Heart Healthy), Renal Diet Pending Studies Studies pending at discharge: no Laboratory Results 11/13/17 06:05 Red Blood Count 4.89, Mean Corpuscular Volume 76.3, Mean Corpuscular Hemoglobin 24.7, Mean Corpuscular Hemoglobin Concent 32.4, Neutrophils (%) (Auto) 88.8, Lymphocytes (%) (Auto) 5.9, Monocytes (%) (Auto) 4.6, Eosinophils (%) (Auto) 0.3 , Basophils (%) (Auto) 0.2, Neutrophils # (Auto) 10.72, Lymphocytes # (Auto) 0.71, Monocytes # (Auto) 0.56, Eosinophils # (Auto) 0.04, Basophils # (Auto) 0.02 11/13/17 06:05 Test 11/12/17 17:29 11/12/17 18:50 11/13/17 06:05 Prothrombin Time 12.1 SECONDS (9.0-12.0) Prothromb Time International Ratio 1.2 (0.9-1.1) Activated Partial Thromboplast Time 26.7 SECONDS (21.0-31.0) Partial Thromboplastin Ratio 1.0 Phosphorus Level 2.2 mg/dl (2.5-4.9) Total Bilirubin 1.3 mg/dl (0.2-1) Direct Bilirubin 0.4 mg/dl (0-0.2) Aspartate Amino Transf (AST/SGOT) 49 U/L (15-37) Alanine Aminotransferase (ALT/SGPT) 63 U/L (12-78) Alkaline Phosphatase 150 U/L (45-117) Pro-B-Type Natriuretic Peptide > 76061 pg/ml (0-1800) Total Protein 8.2 gm/dl (6.4-8.2) Albumin 3.5 gm/dl (3.4-5.0) Lipase 66 U/L (73-393) Thyroid Stimulating Hormone (TSH) 2.310 uIu/ml (0.300-4.500) Urine Color YELLOW Urine Appearance CLEAR (CLEAR) Urine pH >= 9.0 (4.5-7.5) Urine Specific [place] 1.013 (1.000-1.030) Urine Protein 2+ (NEG) Urine Glucose (UA) TRACE (NEG) Urine Ketones NEG (NEG) Urine Occult Blood TRACE (NEG) Urine Nitrite NEG (NEG) Urine Bilirubin NEG (NEG) Urine Urobilinogen NEG (NEG) Urine Leukocyte Esterase TRACE (NEG) Urine WBC (Auto) 5-10 /hpf (0-5) Urine RBC (Auto) 5-10 /hpf (0-4) Urine Hyaline Casts (Auto) 1-5 /lpf (0-5) Urine Epithelial Cells (Auto) 5-10 /lpf (0-5) Urine Bacteria (Auto) NEG (NEG) White Blood Count 12.07 K/uL (4.8-10.8) Red Blood Count 4.89 M/uL (4.7-6.1) Hemoglobin 12.1 g/dL (14.0-18.0) Hematocrit 37.3 % (42-52) Mean Corpuscular Volume 76.3 fL (80-100) Mean Corpuscular Hemoglobin 24.7 pg (25-34) Mean Corpuscular Hemoglobin Concent 32.4 g/dl (32-36) Platelet Count 125 K/uL (130-400) Neutrophils (%) (Auto) 88.8 % Lymphocytes (%) (Auto) 5.9 % Monocytes (%) (Auto) 4.6 % Eosinophils (%) (Auto) 0.3 % Basophils (%) (Auto) 0.2 % Neutrophils # (Auto) 10.72 K/uL (1.4-6.5) Lymphocytes # (Auto) 0.71 K/uL (1.2-3.4) Monocytes # (Auto) 0.56 K/uL (0.11-0.59) Eosinophils # (Auto) 0.04 K/uL (0-0.5) Basophils # (Auto) 0.02 K/uL (0-0.2) RDW Standard Deviation 43.3 fL (36.4-46.3) RDW Coefficient of Variation 15.7 % (11.5-14.5) Immature Granulocyte % (Auto) 0.2 % Immature Granulocyte # (Auto) 0.02 K/uL (0.00-0.02) Platelet Estimate DECREASED Hypochromasia PRESENT Ovalocytes 1+ Anion Gap 8.0 mmol/L (3-11) Est Creatinine Clear Calc Drug Dose 13.8 ml/min Estimated GFR () 13.5 Estimated GFR (Non- 11.7 BUN/Creatinine Ratio 6.9 (10-20) Calcium Level 8.2 mg/dl (8.5-10.1) Magnesium Level 1.9 mg/dl (1.8-2.4) Troponin I 0.218 ng/ml (0-0.045) Date/Time Source Procedure Growth Status 11/12/17 22:52 Nasal MRSA DNA Surveillance Screen - Final Specimen Negative for MRSA by DNA Probe Complete Medical Emergencies . Who to Call and When: Medical Emergencies: If at any time you feel your situation is an emergency, please call 911 immediately. . Non-Emergent Contact Non-Emergency issues call your: Primary Care Provider . . "Provider Documentation" section prepared by Jasbir Park. .
--- NOTE | 2017-11-13 12:58 | Discharge Summary ---
Discharge Summary Date of Service November 13, 2017. Discharge Summary Admission Date: Nov 12, 2017 at 21:01 Discharge Date: November 13, 2017 Discharge Disposition: Home with services Principal Diagnosis: abdominal pain, constipation, fecal impaction, ESRD on dialysis Medication Reconciliation New Medications: Polyethylene (Miralax) 17 Gm Pow 1 PKT OR DAILY for 30 Days, #30 PKT 1 Refill Sennosides-Docusate Sodium (Senokot S) 1 Tab Tab 1 TAB PO DAILY for 30 Days, #30 TAB 1 Refill Continued Medications: Atorvastatin (Lipitor) 20 Mg Tab 20 MG PO QPM, TAB Calcium Acetate (Phoslo 667 Mg) 667 Mg Cap 1 CAP PO TID Nitroglycerin (Nitrostat) 0.4 Mg Tab 0.4 MG UT PRN, BTL Oxycodone Immediate Rel Tab (Roxicodone Ir) 5 Mg Tab 5 MG PO Q6H PRN for Pain, TAB TAKE 1 TAB FOR MODERATE PAIN, TAKE 2 TABS FOR SEVERE PAIN OR BEFORE DIALYSIS Prednisone (Prednisone) 10 Mg Tab 10 MG PO DAILY, TAB Tamsulosin Hcl (Flomax) 0.4 Mg Cap 0.4 MG PO DAILY, CAP Vitamin B Cmplx/Vitc/Folic Ac (Nephrocaps) Cap 1 CAP PO DIRECTED, CAP TAKE 1 CAP IN AM 4XWK (NON DIALYSIS DAYS) TAKE 1 CAP IN PM 3XWK (DIALYSIS DAYS) Admission Information HPI (per Admitting provider): CHIEF COMPLAINT: Abdominal pain. HISTORY OF PRESENT ILLNESS: This 82-year-old male with past medical history significant for end-stage renal disease on hemodialysis, anemia of chronic disease, BPH, bullous pemphigoid, secondary hyperparathyroidism of renal origin, hypertension, aortic valve replacement, cardiac pacemaker, ambulatory dysfunction since his left pelvic fracture last year, was brought in because of abdominal pain since last Sunday. The patient is having severe lower abdominal pain. Last bowel movement was last Sunday and constipated since he is on pain medications, but is not taking any stool softeners because he is worried that during dialysis he will have bowel movement. Appetite is okay. Yesterday, he was nauseous, but currently no nausea. Denies any headaches, no dizziness, no blurred vision, somewhat hard of hearing. No ear pain, no runny nose, no sore throat. He says lately he has some difficulty swallowing on and off, but no cough while eating. Denies any cough. Ambulatory, walks with a walker at home, but ambulatory status is poor since his pelvic fracture, some mild swelling in the lower extremities. No rash seen. Hemodynamically stable. ALLERGIES: No known drug allergies. PAST MEDICAL HISTORY: As mentioned above. PAST SURGICAL HISTORY: CABG, colonoscopy, pacemaker insertion, removal of tunneled catheter, cataract surgery, tonsillectomy, adenoidectomy, right inguinal hernia repair, aortic valve replacement with prosthetic valve. MEDICATIONS: Patient is on Lipitor 40 mg p.o. daily, calcium acetate 667 mg 2 capsules 3 times daily, nitroglycerin 0.4 mg sublingual p.r.n., oxycodone IR 7.5 mg with Tylenol p.r.n., prednisone 10 mg p.o. daily, Flomax 0.4 mg p.o. daily. FAMILY HISTORY: Significant for father, hypertension. Mother had stroke. Father had stroke at the age of 59. Brother had fatal DE in late 60s. Another brother had cancer. SOCIAL HISTORY: Never smoked. No alcohol use. No drug use. Lives with . REVIEW OF SYMPTOMS: As per HPI. Rest of review of symptoms negative. Physical Exam (per Admitting): PHYSICAL EXAMINATION: GENERAL: Patient is of moderate build, not in distress. VITAL SIGNS: Temperature 37.2, pulse 96, respiratory rate 20, blood pressure 106/51, oxygen 93% on room air. HEENT: No pallor, no icterus. Pupils equal, round, and reactive to light. NECK: No JVD, no neck masses, no carotid bruit. CARDIOVASCULAR: S1, S2 heard, regular rate and rhythm, no murmur, no gallop. RESPIRATORY SYSTEM: Normal AP diameter. No accessory muscle use. No wheezing, no crackles. ABDOMEN: Soft, bowel sounds present. Mild lower abdominal discomfort. No guarding was noted. No distention. CENTRAL NERVOUS SYSTEM: Cranial nerves II-XII grossly nonfocal. EXTREMITIES: Lower extremity edema present, no erythema seen. Hospital Course This is an 82-year-old male with abdominal secondary to constipation and fecal impaction. Patient has made bowel movements since he was given bowel regimen with Senokot- S 2 tablets at bedtime, lactulose, and Dulcolax suppository Patient has history of coronary artery disease with status post coronary artery bypass and troponin levels (0.248, 0.216) above reference levels of normal however these serum levels are likely due to the renal failure and patient has had elevated tropinins seen in previous hospitalizations. Patient denies chest pain End-stage renal disease, on hemodialysis and has dialysis on 11/12/17. Patient was evaluated by nephrology service in the hospital Anemia of chronic disease. Hemoglobin 14.2 to 12.1. Recommend outpatient follow labs as needed with outpatient dialysis labs Benign prostatic hypertrophy, on Flomax. Hyperlipidemia, on statin. History of hypertension, not on any medication. Blood pressure controlled History of bullous pemphigoid, on prednisone History of left pelvic fracture last year in December 2016, on pain medications Discharge Instructions Patient was evaluated at [facility] with resolution of abdominal discomfort after making bowel movements. Patient is advised to avoid Imodium for now. Patient is to be given discharge prescriptions with bowel regimen to prevent future constipation. Patient should resume dialysis session as per usual on Sunday and follow up on with primary care doctor: 11/15/2017 2:00 PM Virgil Johnson MD [facility] Total time spent on discharge = 40 minutes This includes examination of the patient, discharge planning, medication reconciliation, and communication with other providers. Discharge Instructions see above
[2017-11-13 13:14] VITALS: BP 130/66; PULSE 94; TEMP 36.8; O2SAT 95
--- NOTE | 2017-11-13 17:12 | Nephrology Consultation ---
Nephrology Consultation Date of Consultation: November 13, 2017. Attending Physician: Dr Sheppard Requesting Physician: Dr Sheppard Reason for Consultation: ESRD History of Present Illness 82 year old male w/ ESRD on MWF HD admitted overnight w/ fecal impaction / constipation after presenting with abdominal pain. Other PMH includes CAD s/p CABG, AVF, s/p pacer placement, bullous pemphigoid, ambulatory dysfunction after medically managed L pelvic fracture last year, anemia of chronic disease, prostatic hypertrophy. He is a [employer] and declines blood transfusions historically. He dialyzes under Dr Call's care MWF at [facility] via AVF. Seen on rounds 10 am; pt states he hopes for d/c this PM and that bowels are moving. Past Medical/Surgical History -as per HPI -staghorn kidney stone, s/p tonsillectomy/adenoidectomy, R inguinal hernia repair; past L humeral fracture Family History FHx: cancer FHx: heart disease FHx: hypertension FHx: kidney disease Social History Smoking Status: Former Smoker Alcohol Use: none Drug Use: none Marital Status: Housing Status: lives with significant other Occupation Status: retired Allergies Coded Allergies: NO KNOWN DRUG ALLERGIES (Verified Allergy, Unknown, ., 01/06/17) Medications Current Inpatient Medications Medications (Trade) Dose Ordered Sig/Daniel Route Start Time Stop Time Status Last Admin Dose Admin Heparin Sodium (Porcine) (Heparin Sq 5000 Unit/0.5ml) 5,000 unit Q8H SQ 11/12/17 22:00 12/12/17 21:59 11/13/17 05:47 5,000 UNIT Acetaminophen (Tylenol Tab) 650 mg Q4H PRN PO 11/12/17 21:00 12/12/17 20:59 Al Hydrox/Mg Hydrox/Simethicone (Maalox Max Susp) 15 ml Q4H PRN PO 11/12/17 21:00 12/12/17 20:59 Ondansetron HCl (Zofran Inj) 4 mg Q6H PRN IV 11/12/17 21:00 12/12/17 20:59 11/13/17 05:45 4 MG Atorvastatin Calcium (Lipitor Tab) 20 mg QPM PO 11/12/17 21:00 12/12/17 20:59 11/12/17 22:47 20 MG Calcium Acetate (Phoslo Cap) 667 mg TIDM PO 11/12/17 21:00 12/12/17 20:59 11/12/17 22:47 667 MG Nitroglycerin (Nitrostat Tab) 0.4 mg PRN UT 11/12/17 21:00 12/12/17 20:59 Oxycodone HCl (Roxicodone Immediate Rel Tab) 5 mg Q6H PRN PO 11/12/17 21:00 11/26/17 20:59 11/12/17 23:29 5 MG Prednisone (PredniSONE TAB) 10 mg DAILY PO 11/13/17 08:00 12/13/17 08:59 Tamsulosin HCl (Flomax Cap) 0.4 mg DAILY PO 11/13/17 08:00 12/13/17 08:59 Vitamin B Complex/ Vit C/Folic Acid (Nephrocaps) 1 cap DAILY PO 11/13/17 08:00 12/13/17 08:59 Senna/Docusate Sodium (Senokot S Tab) 2 tab HS PO 11/12/17 21:00 12/12/17 20:59 11/12/17 22:48 2 TAB Miscellaneous (Iv Fluids Completed) 1 ea PRN PRN N/A 11/13/17 01:00 11/13/18 00:59 Home Meds and Scripts Medications Dose Route/Sig Max Daily Dose Days Date Category Dose Instructions Prednisone 10 Mg Tab 10 Mg PO DAILY 11/12/17 Reported Nitrostat (Nitroglycerin) 0.4 Mg Tab 0.4 Mg UT PRN 01/06/17 Reported Flomax (Tamsulosin Hcl) 0.4 Mg Cap 0.4 Mg PO DAILY 01/06/17 Reported Roxicodone Ir (Oxycodone HCl) 5 Mg Tab 5 Mg PO Q6H PRN 10/27/16 Reported TAKE 1 TAB FOR MODERATE PAIN, TAKE 2 TABS FOR SEVERE PAIN OR BEFORE DIALYSIS Nephrocaps (Vitamin B Complex/Vit C/Folic Acid) Cap 1 Cap PO DIRECTED 10/27/16 Reported TAKE 1 CAP IN AM 4XWK (NON DIALYSIS DAYS) TAKE 1 CAP IN PM 3XWK (DIALYSIS DAYS) Phoslo 667 Mg (Calcium Acetate) 667 Mg Cap 1 Cap PO TID 10/27/16 Reported Lipitor (Atorvastatin Calcium) 20 Mg Tab 20 Mg PO QPM 10/27/16 Reported Review of Systems Constitutional: No fever, No chills Eyes: No worsening of vision ENT: No hearing loss Respiratory: No cough, No shortness of breath Cardiac: No chest pain, No edema Abdomen: + see HPI Musculoskeletal: No joint pain, No muscle pain Male : + problem reported (no change in chronic voiding habits) Neuro: No memory loss, No numbness/tingling Psych: No depression symptoms, No anxiety Heme: No abnormal bleeding/bruising Endo: No fatigue Skin: No rash Physical Exam Date Time Temp Pulse Resp B/P (MAP) Pulse Ox O2 Delivery O2 Flow Rate FiO2 11/13/17 07:23 36.8 94 16 130/66 (87) 95 Room Air 11/13/17 00:15 Room Air 11/12/17 23:14 36.7 103 24 124/89 93 Room Air 11/12/17 21:32 96 23 124/89 98 Room Air 11/12/17 20:17 100 24 89/56 98 Room Air 11/12/17 18:43 96 20 106/51 93 Room Air 11/12/17 17:44 84 11/12/17 17:31 97 Room Air 11/12/17 17:10 37.2 98 16 107/59 96 Room Air General Appearance: WD/WN, no apparent distress Eyes: EOMI ENT: hearing grossly normal Neck: supple Respiratory/Chest: lungs clear, + decreased breath sounds Cardiovascular: regular rate, rhythm, no edema Abdomen: normal bowel sounds, non tender, soft Extremities: no pedal edema, + pertinent finding (avf + t/b) Neurologic/Psych: alert, normal mood/affect, oriented x 3 Skin: no jaundice, warm/dry, no rash Diagnostics Last 24 Hours Test 11/12/17 17:29 11/12/17 18:50 11/13/17 06:05 White Blood Count 14.87 K/uL 12.07 K/uL Red Blood Count 5.70 M/uL 4.89 M/uL Hemoglobin 14.2 g/dL 12.1 g/dL Hematocrit 43.9 % 37.3 % Mean Corpuscular Volume 77.0 fL 76.3 fL Mean Corpuscular Hemoglobin 24.9 pg 24.7 pg Mean Corpuscular Hemoglobin Concent 32.3 g/dl 32.4 g/dl Platelet Count 151 K/uL 125 K/uL Neutrophils (%) (Auto) 87.7 % 88.8 % Lymphocytes (%) (Auto) 5.9 % 5.9 % Monocytes (%) (Auto) 5.9 % 4.6 % Eosinophils (%) (Auto) 0.1 % 0.3 % Basophils (%) (Auto) 0.1 % 0.2 % Neutrophils # (Auto) 13.06 K/uL 10.72 K/uL Lymphocytes # (Auto) 0.88 K/uL 0.71 K/uL Monocytes # (Auto) 0.87 K/uL 0.56 K/uL Eosinophils # (Auto) 0.01 K/uL 0.04 K/uL Basophils # (Auto) 0.01 K/uL 0.02 K/uL RDW Standard Deviation 43.7 fL 43.3 fL RDW Coefficient of Variation 15.8 % 15.7 % Immature Granulocyte % (Auto) 0.3 % 0.2 % Immature Granulocyte # (Auto) 0.04 K/uL 0.02 K/uL Prothrombin Time 12.1 SECONDS Prothromb Time International Ratio 1.2 Activated Partial Thromboplast Time 26.7 SECONDS Partial Thromboplastin Ratio 1.0 Sodium Level 136 mmol/L 136 mmol/L Potassium Level 4.5 mmol/L 4.9 mmol/L Chloride Level 100 mmol/L 102 mmol/L Carbon Dioxide Level 29 mmol/L 26 mmol/L Anion Gap 7.0 mmol/L 8.0 mmol/L Blood Urea Nitrogen 22 mg/dl 30 mg/dl Creatinine 3.77 mg/dl 4.36 mg/dl Est Creatinine Clear Calc Drug Dose 16.1 ml/min 13.8 ml/min Estimated GFR () 16.1 13.5 Estimated GFR (Non- 13.9 11.7 BUN/Creatinine Ratio 5.9 6.9 Random Glucose 118 mg/dl 123 mg/dl Calcium Level 8.9 mg/dl 8.2 mg/dl Phosphorus Level 2.2 mg/dl Magnesium Level 2.1 mg/dl 1.9 mg/dl Total Bilirubin 1.3 mg/dl Direct Bilirubin 0.4 mg/dl Aspartate Amino Transf (AST/SGOT) 49 U/L Alanine Aminotransferase (ALT/SGPT) 63 U/L Alkaline Phosphatase 150 U/L Troponin I 0.248 ng/ml 0.218 ng/ml Pro-B-Type Natriuretic Peptide > 38434 pg/ml Total Protein 8.2 gm/dl Albumin 3.5 gm/dl Lipase 66 U/L Thyroid Stimulating Hormone (TSH) 2.310 uIu/ml Urine Color YELLOW Urine Appearance CLEAR Urine pH >= 9.0 Urine Specific Lebo 1.013 Urine Protein 2+ Urine Glucose (UA) TRACE Urine Ketones NEG Urine Occult Blood TRACE Urine Nitrite NEG Urine Bilirubin NEG Urine Urobilinogen NEG Urine Leukocyte Esterase TRACE Urine WBC (Auto) 5-10 /hpf Urine RBC (Auto) 5-10 /hpf Urine Hyaline Casts (Auto) 1-5 /lpf Urine Epithelial Cells (Auto) 5-10 /lpf Urine Bacteria (Auto) NEG Platelet Estimate DECREASED Hypochromasia PRESENT Ovalocytes 1+ Diagnostic Radiology: CT abd/pelvis no con 1. Considerable rectal fecal impaction. 2. Considerable increase in fecal load throughout the sigmoid. 3. Nonobstructive bowel pattern with only a minimal component of nonobstructive ileus. 4. Atrophy of the kidneys bilaterally with evidence for a pre-existing staghorn calculus the left kidney. 5. Several small gallstones. 6. Minimal dependent basilar atelectasis. CXR Moderate cardiomegaly. No acute process. Incidental note is made of an old healed fracture left humeral neck. Assessment & Plan 82 y/o M w/ ESRD on MWF HD via AVF and w/ anemia chronic disease, medically managed pelvic fracture last year w/ pain med dependence/ambulatory dysfunction , CAD, pacer placement admitted w/ fecal impaction on high dose pain meds. ESRD on MWF HD w/ acceptable BP, volume status, chemistries, anemia; last HD was yesterday on schedule -next HD tomorrow inpt or outpt as clinical condition dictates Anemia of chronic disease -historically declines transfusions for yazidism reasons; monitor q 24-48 hr hgb; meds as indicated w/ HD Constipation appreciate primary service efforts to avoid fleet's based products and mag based products; dulcolax, stool softeners, lactulose; can use also tap water, mineral oil enema ?indication for daily prednisone for pt w/ recurrent fractures -- most likely his skin condition Appreciate consult; will follow with you.
== END 2017-11-13 13:46 | disposition home or self-care (01) ==
LOC: C.EDB 17:09 → C.MS4W 21:01 → ENRESERV 21:15 → EDBEDREQ 21:20
PROVIDERS: ADMIT Hospitalist; ATTEND Hospitalist
DX: K56.41 Fecal impaction (principal); N18.6 End stage renal disease; D72.829 Elevated white blood cell count, unspecified; D63.1 Anemia in chronic kidney disease; I25.10 Atherosclerotic heart disease of native coronary artery without angina pectoris; E78.5 Hyperlipidemia, unspecified; I12.0 Hypertensive chronic kidney disease with stage 5 chronic kidney disease or end stage renal disease; N40.0 Benign prostatic hyperplasia without lower urinary tract symptoms; Z99.2 Dependence on renal dialysis; Z87.442 Personal history of urinary calculi; Z95.0 Presence of cardiac pacemaker; Z86.61 Personal history of infections of the central nervous system; Z90.89 Acquired absence of other organs; Z95.5 Presence of coronary angioplasty implant and graft; Z95.2 Presence of prosthetic heart valve; Z98.49 Cataract extraction status, unspecified eye; Z82.49 Family history of ischemic heart disease and other diseases of the circulatory system; Z84.1 Family history of disorders of kidney and ureter; Z87.81 Personal history of (healed) traumatic fracture

== ENCOUNTER 2018-10-29 17:11 | Inpatient (IN) ==
[2018-10-29] MEDS ORDERED: ALBUT/IPRATROP 3MG/0.5MG NEB 3 ML VIAL INH STA (17:37)
--- NOTE | 2018-10-29 17:42 | Emergency Department Note ---
Entered by Keith Begum acting as a scribe for Star Dodge MD History of Present Illness General Chief complaint: Shortness of Breath/Dyspnea Stated complaint: HARD TIME BREATHING-REFERRED Time Seen by Provider: 10/29/18 17:22 Source: patient and family Limitations: no limitations History of Present Illness Provider complaint: SOB Onset (ago): day(s) (2) Location: chest Pain Consistency: + other (worsening) Quality: + other (SOB) Treatments prior to arrival: none The patient is an 83 year old male who presents to the Emergency Room with complaints of worsening shortness of breath over the past few days. The patient states that he was seen here in the emergency department last week for similar symptoms. He did improve from this hospital visit, but the shortness of breath returned yesterday. The patient did have dialysis performed yesterday, but his adds that they took off less fluid than they have in the past, as the patient services coordinator thought they were taking too much off. He also saw his PCP today, who thought there was a change in his EKG as compared to the previous. The patient states that he was told the EKG change was due to a pacemaker spike. The patient denies being started on any inhalers following the last hospital visit. He has not noticed any exacerbating/remitting factors for the shortness of breath, and there has not been any associated fevers or chest pain. Home Medications Home Medications Medication Instructions Recorded Confirmed Type atorvastatin [Lipitor] 40 mg PO DAILY 10/18/18 10/29/18 History oxycodone 15 mg PO Q6 PRN 10/18/18 10/29/18 History tamsulosin [Flomax] 0.4 mg PO DAILY 10/18/18 10/29/18 History nitroglycerin [Nitrostat] 0.4 mg SUBLINGUAL UD 10/29/18 10/29/18 History prednisone 10 mg PO DAILY 10/29/18 10/29/18 History Allergies Allergy/AdvReac Type Severity Reaction Status Date / Time No Known Drug Allergies Allergy Unknown . Verified 10/29/18 18:20 Past Med/Surg History Medical History Renal calculi (Chronic) ESRD on dialysis (Chronic) Pacemaker (Chronic) ASCVD (arteriosclerotic cardiovascular disease) (Chronic) 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) Dyslipidemia (Chronic) BPH (benign prostatic hyperplasia) (Chronic) HTN (hypertension) (Chronic) Surgical History Aortic valve replaced (Chronic) Hx of CABG (Chronic) History of cataract surgery (Chronic) History of tonsillectomy (Chronic) H/O inguinal hernia repair (Chronic) Social History Preferred Language: [place]arag[place] marital status: current occupational status: retired Feels Safe at Home: Yes Smoking Status: Former smoker Review of Systems See HPI for pertinent positives & negatives. and A total of 10 systems reviewed and were otherwise negative Physical Exam Vital Signs Vital Signs - 24 hr 10/29/18 17:14 10/29/18 17:55 10/29/18 18:01 Temperature 36.4 C L Temperature Source Oral Sepsis Recent Fever Within 48 Hours No Sepsis New/Unexplained Change in Mental Status No Sepsis Action Taken by Nursing No Action Required Pulse Rate 85 88 Pulse Rate [Apical] 88 Pulse Rate from SpO2 Sensor 91 H Pulse Rhythm Regular Pulse Strength Normal Respiratory Rate 26 H 22 14 Respiratory Effort / Characteristics Non-Labored Spontaneous Respiratory Depth Normal Respiratory Pattern Regular Blood Pressure 141/82 H 129/72 Blood Pressure [Right Arm] 131/97 Blood Pressure Mean 101 91 Blood Pressure Mean [Right Arm] 108 Pulse Oximetry 96 95 99 Oxygen Delivery Method Room Air Room Air Room Air Oxygen Flow Rate 10/29/18 18:29 10/29/18 18:32 10/29/18 18:50 Temperature Temperature Source Sepsis Recent Fever Within 48 Hours Sepsis New/Unexplained Change in Mental Status Sepsis Action Taken by Nursing Pulse Rate 87 Pulse Rate [Apical] Pulse Rate from SpO2 Sensor 82 Pulse Rhythm Pulse Strength Respiratory Rate 19 26 H 17 Respiratory Effort / Characteristics Labored Respiratory Depth Respiratory Pattern Blood Pressure 98/52 L Blood Pressure [Right Arm] Blood Pressure Mean 67 Blood Pressure Mean [Right Arm] Pulse Oximetry 100 100 100 Oxygen Delivery Method Room Air Room Air Nasal Cannula Oxygen Flow Rate 2 10/29/18 19:02 Temperature Temperature Source Sepsis Recent Fever Within 48 Hours Sepsis New/Unexplained Change in Mental Status Sepsis Action Taken by Nursing Pulse Rate 82 Pulse Rate [Apical] Pulse Rate from SpO2 Sensor 82 Pulse Rhythm Pulse Strength Respiratory Rate 16 Respiratory Effort / Characteristics Respiratory Depth Respiratory Pattern Blood Pressure 118/66 Blood Pressure [Right Arm] Blood Pressure Mean 83 Blood Pressure Mean [Right Arm] Pulse Oximetry 99 Oxygen Delivery Method Nasal Cannula Oxygen Flow Rate 2 GENERAL: Patient is in no acute distress. HEENT: No acute trauma, normocephalic atraumatic, mucous membranes moist, no nasal congestion, no scleral icterus. NECK: No stridor, no adenopathy, no meningismus, trachea is midline. LUNGS: There is wheezing bilaterally, breath sounds are equal. No crackles. There is a dry cough noted on exam. HEART: 2/6 systolic murmur, irregular rhythm noted, normal rate. ABDOMEN: Soft, nontender, bowel sounds positive, no hernias, no peritonitis. EXTREMITIES: Mild bilateral pedal edema noted. Full range of motion of all the joints without pain or difficulty, no signs for acute trauma. NEUROLOGIC: Oriented x 3, no acute motor or sensory deficits, no focal weakness. SKIN: No rash, no jaundice, no diaphoresis. Course 1723: The patient was evaluated in room A12B, and a complete history and physi radha examination were performed. 184: Nursing staff states that the patient is complaining of pain. He takes chronic pain medication and ran out of his Oxycodone 4 days ago. 1850: I updated the patient at this time. He agrees to hospital admission. I will page Khang 1904: I reviewed the patient's case with Vi Fay - [facility] Hospitalist NOEMY, for Dr. Hanna - Attending. She will evaluate the patient for further management. Administered Medications Discontinued Medications Albuterol (Duoneb) 3 ml INH NOW STA Stop: 10/29/18 17:38 Last Admin: 10/29/18 17:52 Dose: 3 ml Documented by: [id number] Morphine Sulfate (Morphine Sulfate) 4 mg IV NOW STA Stop: 10/29/18 18:42 Last Admin: 10/29/18 18:45 Dose: 4 mg Documented by: [id number] Medical Decision Making Differential Diagnosis Differential Diagnosis includes: Bronchitis, pneumonia, CHF, bronchospasm, COPD, anemia, electrolyte or metabolic abnormality, and fluid overload. Medical Records Attestation: I reviewed the patient's medical records. Home Medications Current Medication List: was personally reviewed by me Laboratory Data Attestation: I reviewed the patient's lab results. Result diagrams: 10/29/18 17:52 10/29/18 17:47 Lab Results 10/29/18 10/29/18 10/29/18 Range/Units 17:47 17:47 17:52 WBC 7.43 (4.8-10.8) K/uL RBC 4.61 L (4.7-6.1) M/uL Hgb 11.2 L (14.0-18.0) g/dL Hct 35.8 L (42-52) % MCV 77.7 L (80-100) fL MCH 24.3 L (25-34) pg MCHC 31.3 L (32-36) g/dL RDW Std Deviation 48.0 H (36.4-46.3) fL RDW Coeff of Gill 17.2 H (11.5-14.5) % Plt Count 181 (130-400) K/uL MPV 11.8 H (7.4-10.4) fL Immature Gran % (Auto) 0.3 % Neut % (Auto) 62.8 % Lymph % (Auto) 23.4 % Tate % (Auto) 7.7 % Eos % (Auto) 5.4 % Baso % (Auto) 0.4 % Immature Gran # (Auto) 0.02 (0.00-0.02) K/uL Neut # (Auto) 4.67 (1.4-6.5) K/uL Lymph # (Auto) 1.74 (1.2-3.4) K/uL Tate # (Auto) 0.57 (0.11-0.59) K/uL Eos # (Auto) 0.40 (0-0.5) K/uL Baso # (Auto) 0.03 (0-0.2) K/uL PT 11.6 (9.0-12.0) Seconds INR 1.1 (0.9-1.1) APTT 20.6 L (21.0-31.0) Seconds PTT Ratio 0.8 Sodium 135 L (136-145) mmol/L Potassium 5.1 (3.5-5.1) mmol/L Chloride 101 (98-107) mmol/L Carbon Dioxide 29 (21-32) mmol/L Anion Gap 5.0 (3-11) BUN 22 H (7-18) mg/dl Creatinine 4.42 H (0.6-1.4) mg/dl Est Cr Clr Drug Dosing 14.2 ml/min Est GFR ( Amer) 13.2 Est GFR (Non-Af Amer) 11.4 BUN/Creatinine Ratio 5.1 L (10-20) Glucose 89 (70-99) mg/dl Calcium 8.7 (8.5-10.1) mg/dl Total Bilirubin 0.5 (0.2-1) mg/dl AST 20 (15-37) U/L ALT 16 (12-78) U/L Alkaline Phosphatase 115 (45-117) U/L Troponin I 0.519 H* (0-0.045) ng/ml Total Protein 7.8 (6.4-8.2) gm/dl Albumin 3.0 L (3.4-5.0) gm/dl Globulin 4.8 H (2.5-4.0) gm/dl Albumin/Globulin Ratio 0.6 L (0.9-2) Imaging Data Radiologist's Impression: XR chest 1V portable CLINICAL HISTORY: Shortness of breath. COMPARISON STUDY: Chest radiograph October 28, 2018. FINDINGS: There are mediastinal wires and clips from bypass grafting. A dual lead right subclavian pacemaker is in place. Prosthetic aortic valve is noted. Cardiomegaly is unchanged. Interval development of pulmonary vascular congestion with suspected mild pulmonary edema is noted. There is no lobar consolidation. IMPRESSION: Interval development of pulmonary edema. Electronically signed by: Evan Maya M.D. 10/29/2018 6:14 PM ECG Data Attestation: I personally reviewed and interpreted this ECG as follows: Indication: SOB/dyspnea Rate (beats per minute): 90 Rhythm: other (Ventric. Paced) Findings: no PAC and no PVC Blood Pressure Blood Pressure Findings: Low blood pressure Blood Pressure Disposition: further management by hospitalist [facility] Narrative There is no leukocytosis. The patient is somewhat anemic with a hemoglobin of 11.2. No concerning coagulopathy. Renal panel testing shows a high creatinine, this is consistent with his dialysis need. Potassium was normal. EKG shows a paced rhythm. Cardiac troponin was slightly elevated, higher than his baseline troponin values. Chest x-ray shows heart failure, this was not present yester day, yesterday, his lungs were clear on film. The patient was given IV morphine for pain try to help with the CHF. He was given a DuoNeb. I did not give any nitroglycerin as his blood pressure was already somewhat low. Diuretics were not given as the patient requires dialysis. The patient presents with dyspnea. He is in heart failure. He did have less fluid taken off at dialysis yesterday. He appears fluid overloaded and I think this is causing his dyspnea and his wheezing on exam. I spoke to the patient and case management. The on-call hospitalist was counseled. I do think a hospital stay is required. I do not think he is safe for discharge home. Impression & Plan SOB (shortness of breath), CHF (congestive heart failure), Elevated troponin Discharge Plan Visit Data Chief Complaint: Shortness of Breath/Dyspnea Stated Complaint: HARD TIME BREATHING-REFERRED ED Provider: Star Dodge Discharge Problem: SOB (shortness of breath), CHF (congestive heart failure), Elevated troponin Patient Disposition: Being Evaluated by Hospitalist Forms Stand Alone Forms: My [facility] Prescriptions Prescriptions: No Action atorvastatin [Lipitor] 40 mg Tablet 40 mg PO DAILY RF: 0 oxycodone 15 mg Tablet 15 mg PO Q6 PRN (Reason: Pain) RF: 0 tamsulosin [Flomax] 0.4 mg Capsule 0.4 mg PO DAILY RF: 0 prednisone 10 mg tablet 10 mg PO DAILY RF: 0 nitroglycerin [Nitrostat] 0.4 mg Tablet, Sublingual 0.4 mg sublingual UD RF: 0 Referrals Referrals: Suly House DO [Primary Care Provider] - Discharge Problem: CHF (congestive heart failure) Qualifiers: Heart failure type: unspecified Heart failure chronicity: chronic Qualified Code(s): I50.9 - Heart failure, unspecified The ewa's documentation has been prepared under my direction and personally reviewed by me in its entirety. I confirm that the note above accurately reflects all work, treatment, procedures, and medical decision making performed by me.
[2018-10-29 18:00] LABS: Basophils # (auto) 0.03 K/uL (0-0.2); Basophils % (auto) 0.4 %; Eosinophils % (auto) 5.4 %; Hematocrit (blood only) 35.8 % (42-52); Hemoglobin 11.2 g/dL (14.0-18.0); Immature Granulocytes # (auto) 0.02 K/uL (0.00-0.02); Immature Granulocytes % (auto) 0.3 %; Lymphocytes # (auto) 1.74 K/uL (1.2-3.4); Lymphocytes % (auto) 23.4 %; Mean Corpuscular Hgb Conc 31.3 g/dL (32-36); Mean Corpuscular Volume 77.7 fL (80-100); Mean Platelet Volume 11.8 fL (7.4-10.4); Monocytes # (auto) 0.57 K/uL (0.11-0.59); Monocytes % (auto) 7.7 %; Neutrophils # (auto) 4.67 K/uL (1.4-6.5); Neutrophils % (auto) 62.8 %; Platelet Count 181 K/uL (130-400); RDW Coefficient of Variation 17.2 % (11.5-14.5); Red Blood Count 4.61 M/uL (4.7-6.1); White Blood Count 7.43 K/uL (4.8-10.8)
[2018-10-29 18:10] LABS: INR 1.1 (0.9-1.1); Partial Thromboplastin Ratio 0.8; Partial Thromboplastin Time 20.6 Seconds (21.0-31.0); Prothrombin Time 11.6 Seconds (9.0-12.0)
--- NOTE | 2018-10-29 18:15 | XRay Report ---
XR chest 1V portable CLINICAL HISTORY: Shortness of breath. COMPARISON STUDY: Chest radiograph October 28, 2018. FINDINGS: There are mediastinal wires and clips from bypass grafting. A dual lead right subclavian pa cemaker is in place. Prosthetic aortic valve is noted. Cardiomegaly is unchanged. Interval developmen t of pulmonary vascular congestion with suspected mild pulmonary edema is noted. There is no lobar co nsolidation. IMPRESSION: Interval development of pulmonary edema. Electronically signed by: Evan Maya M.D. 10/29/2018 6:14 PM
[2018-10-29 18:16] LABS: BUN Creatinine Ratio 5.1 (10-20); Calcium 8.7 mg/dl (8.5-10.1); Creatinine Clr Calc Pharmacy 14.2 ml/min; Est GFR (African American) 13.2; Est GFR (Non-African American) 11.4; Potassium 5.1 mmol/L (3.5-5.1)
[2018-10-29 18:28] LABS: Albumin Globulin Ratio 0.6 (0.9-2); Bilirubin,Total 0.5 mg/dl (0.2-1); Globulin 4.8 gm/dl (2.5-4.0); Total Protein 7.8 gm/dl (6.4-8.2); Troponin I 0.519 ng/ml (0-0.045)
[2018-10-29] MEDS ORDERED: MoRPHine SULFATE 4 MG/ML 1 ML CARP\\VIAL IV STA (18:41)
--- NOTE | 2018-10-29 20:08 | History & Physical Report ---
Date of Service October 29, 2018 Assessment & Plan (1) CHF (congestive heart failure): (2) SOB (shortness of breath): Pt presents to ER with c/o SOB and orthopnea past couple of days, worse past day. Patient has dialysis on Wednesdays and Fridays and reports he thinks the last 2 sessions has had decreased amount of fluid taken off. Patient denies any cough or fever or CP. Denies increased LE edema. Reports increased fluid intake than recommended. In ER pt afebrile, P: 85, R: 26 down to 16, BP: 141/82, 96% on RA. Pt was placed on oxygen NC at 2L with decreased SOB sensation. No leukocytosis. CXR:Interval development of pulmonary edema. -supplemental oxygen -fluid restriction 1500ml -echo -nephrology consult - freight traffic consultant recommends monitoring and continue 2L oxygen NC with plan to have HD tomorrow AM (3) Elevated troponin: Troponin: 0.5. Denies CP. EKG paced rhythm Chronic troponin elevation at 0.3 in setting of renal disease CHEST PAIN R/O ACS. Risk factors: HTN, hyperlipidemia, DM, obesity, tobacco use -Monitor Vitals -Repeat EKG in am -Trend troponin -continue statin -Nitro prn CP and repeat EKG for CP (4) ESRD on dialysis: MWF schedule. 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 Baseline ~12. Pt is [employer] -monitor H&H (7) BPH (benign prostatic hyperplasia): -continue flomax (8) HTN (hypertension): Not on any medications -monitor BP (9) Pacemaker: Hx pacemaker (10) Chronic pain: Reported chronic shoulder pain Pt states ran out of his oxycodone that he takes daily at night and since he has been feeling anxious. In ER was given morphine with moderate relief of pain and reports less anxiety -continue oxycodone (11) Bullous pemphigoid: -on chronic prednisone DVT Prophylaxis -SCDs Full Code as per discussion with pt Follows with Dr House for routine care Pt was seen with Dr Hanna. See addendum History of Present Illness Chief Complaint: SOB Primary Care Provider: Suly House, Pt is 83 y/o M with PMH ESRD on HD, CAD s/p CABG, history of pacemaker, chronic anemia, HTN, dyslipidemia, hyperparathyroidism, BPH, bullous pemphigoid presented to ER with complaint of shortness of breath. Patient states his been feeling short of breath for the past couple of days which is worsening the past day. Complains of orthopnea. Reports chronic bilateral lower extremity edema unsure if any worse. Patient has dialysis on Wednesdays and Fridays and reports he thinks the last 2 sessions has had decreased amount of fluid taken off. Patient denies any cough or fever or chest pain. Pt reports that he drinks more fluid than he is supposed to with his fluid restrictions but is unable to give an amount. He states that he takes oxycodone 10 for chronic shoulder pain and ran out 4 days ago and since has been feeling increased anxiety. Patient had chest x-ray 10/28/18 which showed improving congestive heart failure compared to chest x-ray on 10/18/18. History ER visit on 10/18/18 for shortness of breath which had improved and was discharged home. Denies fever/chills, diaphoresis, N/V/D/C, [place], dizziness, syncope, vision changes, neck pain, CP, palpitations, sore throat, choking, otalgia, rhinorrhea, abdominal pain, paresthesias, weakness, u rinary symptoms. Hx echo 2017: EF: 35-40%, grade II diastolic dysfunction Allergies Allergy/AdvReac Type Severity Reaction Status Date / Time No Known Drug Allergies Allergy Unknown . Verified 10/29/18 18:20 Home Medications Home Medications Medication Instructions Recorded Confirmed Type atorvastatin [Lipitor] 40 mg PO PM 10/18/18 10/29/18 History oxycodone 15 mg PO HS PRN 10/18/18 10/29/18 History tamsulosin [Flomax] 0.4 mg PO DAILY 10/18/18 10/29/18 History calcium acetate 2 cap PO TIDM 10/29/18 10/29/18 History nitroglycerin [Nitrostat] 0.4 mg SUBLINGUAL UD 10/29/18 10/29/18 History prednisone 10 mg PO DAILY 10/29/18 10/29/18 History Past Med/Surg History Medical History Bullous pemphigoid (Chronic) Renal calculi (Chronic) ESRD on dialysis (Chronic) Pacemaker (Chronic) ASCVD (arteriosclerotic cardiovascular disease) (Chronic) 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) Dyslipidemia (Chronic) BPH (benign prostatic hyperplasia) (Chronic) HTN (hypertension) (Chronic) Surgical History Aortic valve replaced (Chronic) Hx of CABG (Chronic) History of cataract surgery (Chronic) History of tonsillectomy (Chronic) H/O inguinal hernia repair (Chronic) Social History Preferred Language: [place] marital status: current occupational status: retired Feels Safe at Home: Yes Smoking Status: Never smoker Hx Alcohol Use: No Hx Substance Use: No Review of Systems All systems reviewed & are unremarkable except as noted in HPI & below Physical Exam Vital Signs (Past 24 Hours): Last Vital Signs Temp 36.4 C L 10/29/18 17:14 Pulse 82 10/29/18 19:02 Resp 16 10/29/18 19:02 BP 118/66 10/29/18 19:02 Pulse Ox 99 10/29/18 19:02 Physical Exam: General: no acute distress, WDWN Head: normocephalic, atraumatic Eyes: PERRL, EOM's intact, conjunctiva non-injected, anicteric ENT: normal inspection external ears, nose, mucous membranes moist Neck: supple, trachea midline Lungs: no respiratory distress on 2L oxygen, R:18 and without retractions, +scattered wheezing, faint rales bases CV: RRR, 1-2+ pretibial edema Abd: normal BS, soft, non-tender Ext: no cyanosis, no calf tenderness Neuro: A&O x 3, no focal deficits noted, normal affect Skin: warm, dry Results & Data Laboratory Results Short CBC 10/29/18 Range/Units 17:52 WBC 7.43 (4.8-10.8) K/uL Hgb 11.2 L (14.0-18.0) g/dL Hct 35.8 L (42-52) % Plt Count 181 (130-400) K/uL BMP 10/29/18 17:47 Sodium 135 L Potassium 5.1 Chloride 101 Carbon Dioxide 29 BUN 22 H Creatinine 4.42 H Glucose 89 Calcium 8.7 Cardiac Enzymes 10/29/18 Range/Units 17:47 Troponin I 0.519 H* (0-0.045) ng/ml Liver Function 10/29/18 Range/Units 17:47 Total Bilirubin 0.5 (0.2-1) mg/dl AST 20 (15-37) U/L ALT 16 (12-78) U/L Alkaline Phosphatase 115 (45-117) U/L Albumin 3.0 L (3.4-5.0) gm/dl Diagnostic Findings CXR: IMPRESSION: Interval development of pulmonary edema. ECG Findings: + paced rhythm Supervising Physician Co-Signing Physician Notes I have seen and examined the patient and have discussed the case with the provider above. I agree with the assessment and plan as stated with the following exception. 83 yo M with worsening pulm edema on CXR and worsened SOB which was improved with morphine. He also had some shoudler/neck tightness and malaise and reports being out of his Oxy 15mg which he takes nightly. He was out of meds for 4-5 days and feels he was withdrawing from the oxycodone. He is not tachypnic on 2L NC and has no conversational dyspnea. He is better with the morphine and has now taken his oxycodone. This was scheduled nightly. Cont plan as above. DO Jacques (1) CHF (congestive heart failure) Heart failure chronicity: chronic Heart failure type: unspecified Qualified Code(s): I50.9 - Heart failure, unspecified
[2018-10-29] MEDS ORDERED: OXYCODONE HCL IR 5 MG TAB (IMMEDIATE RELEASE) PO PRN (22:19)
[2018-10-29] MEDS ORDERED: ACETAMINOPHEN 325 MG TAB PO PRN (22:19)
[2018-10-29] MEDS ORDERED: NITROGLYCERIN SL 0.4 MG/TAB TAB SL PRN (22:19)
[2018-10-29] MEDS: ATORVASTATIN 40 MG TAB PO SCH (23:13)
[2018-10-29] MEDS: TAMSULOSIN HCL 0.4 MG CAP PO SCH (23:13)
[2018-10-29] MEDS: predniSONE 10 MG TABLET PO SCH (23:13)
[2018-10-29 23:28] LABS: Troponin I 0.523 ng/ml (0-0.045)
[2018-10-30 06:48] LABS: Hematocrit (blood only) 32.5 % (42-52); Hemoglobin 10.1 g/dL (14.0-18.0); Mean Corpuscular Hgb Conc 31.1 g/dL (32-36); Mean Corpuscular Volume 77.4 fL (80-100); Mean Platelet Volume 11.3 fL (7.4-10.4); Platelet Count 153 K/uL (130-400); RDW Coefficient of Variation 16.9 % (11.5-14.5); RDW Standard Deviation 47.2 fL (36.4-46.3); White Blood Count 5.58 K/uL (4.8-10.8)
[2018-10-30 07:27] LABS: BUN Creatinine Ratio 5.4 (10-20); Calcium 8.3 mg/dl (8.5-10.1); Creatinine Clr Calc Pharmacy 12.6 ml/min; Est GFR (African American) 11.3; Est GFR (Non-African American) 9.8; Troponin I 1.71 ng/ml (0-0.045)
[2018-10-30 07:28] LABS: Potassium 5.9 mmol/L (3.5-5.1)
[2018-10-30] MEDS: CALCIUM ACETATE 667 MG CAP PO SCH ×3 (08:11→16:47)
[2018-10-30] MEDS ORDERED: predniSONE 10 MG TABLET PO SCH (09:00)
[2018-10-30] MEDS ORDERED: TAMSULOSIN HCL 0.4 MG CAP PO SCH ×2 (09:00)
[2018-10-30] MEDS ORDERED: SODIUM CHLORIDE 0.9% 1000ML 1,000 ML IV PRN (11:25)
[2018-10-30] MEDS ORDERED: HEPARIN SOD (PORCINE) 1000 UNIT/ML 10 ML VIAL IV ONE (11:25)
[2018-10-30] MEDS: HEPARIN SOD (PORCINE) 1000 UNIT/ML 10 ML VIAL IV SCH ×2 (11:40→12:24)
--- NOTE | 2018-10-30 14:12 | Consultation Report ---
DATE OF CONSULTATION: 10/30/2018 RENAL CONSULTATION SUBJECTIVE: Mr. Poon is an 83-year-old white male that I have followed for approximately the past year. He has end-stage renal disease and has been on maintenance dialysis since approximately 2011. The etiology of his end-stage renal disease is likely mixed. 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 He had no particular history of upper urinary tract infections involving the left kidney. There was no documentation of renovascular disease despite his history of cardiovascular disease. Additionally, he has a history of hydroureteronephrosis involving the right kidney. He has had small stones in the right kidney, but no staghorn calculus. When he presented to this hospital in October of 2011, he had a very little renal function and his creatinine had acutely gone. He was placed on maintenance dialysis at that time. Since on dialysis, he has done relatively well. He has had several falls in the past that resulted in fractures, both of ribs as well as his left humerus. However, he has recovered from those. He continues to live independently with his . He continues to dialyze 3 times a week at [facility] in [place]. His dialysis treatments are essentially uncomplicated. He does get heparin for each dialysis treatment. Dialysis chemistries have been under reasonably good control. Associated medical conditions include his longstanding history of hypertension, but his blood pressure has been well controlled. Additionally, he has a history of ASCVD with significant coronary disease. He has had coronary artery bypass surgery done in 2007. Apparently, four bypasses were done at that time as well as an aortic valve replacement. In November of 2011, he had a dual chamber pacemaker placed for episodes of symptomatic bradycardia. He is followed by Dr. Wheat and Dr. Kunz for his history of coronary disease as well as his pacemaker. He does have a history of atrial fibrillation as well. His major anticoagulation occurs with his dialysis treatments. Over the course of the past 6 weeks, he has had some increasing difficulties. These seem to be initially tied to some dental problems that the patient has been having. Initially when complaining of dental pain, he was told that he needed to see his dentist. However, he was slow in making an appointment. Finally, at our urging, he did make an appointment with his dentist and has been referred to see Dr. Fischer, an oral surgeon in [place]. He has a visit scheduled with him for next week, presumably for the removal of several teeth. In the meantime, because of his dental discomfort, he has not been eating normally. It was presumed that he was losing some weight. He became increasingly weak and was complaining that we were pulling too much fluid off him during his dialysis treatments. Chest x-rays showed cardiomegaly. In one instance about 2 weeks ago, he had some evidence of volume overload. A chest x-ray was done 2 days ago. That was done because I heard a rub in his chest on the right side. He did not have any rales. I heard no cardiac gallops. Chest x-ray was done and did not show evidence of pulmonary edema, although he still had his cardiomegaly. We increased his dry weight by approximately 1 pound at that time. Since then, he admits that he has become increasingly short of breath and admits some dietary indiscretion both with an increased volume of oral fluids as well as some salt containing foods. Additionally, he says that he has become increasingly anxious. He usually takes oxycodone before going to bed. However, he ran out of his medication. He said that he became increasingly anxious with that. He developed increasing shortness of breath yesterday and his encouraged him to come to the Emergency Room. In the Emergency Room, although his oxygen saturation was normal, a chest x-ray did show evidence of obvious volume overload and pulmonary edema. He was admitted. He had a relatively comfortable night. His oxygen saturations had remained relatively normal even on room air. He denied having a cough. He has not been having any recent chest pain. He did have some diaphoresis associated with his significant shortness of breath. Nonetheless, with the findings of pulmonary edema on chest x-ray when seen in the ER, he was admitted. He is being dialyzed today. PAST MEDICAL HISTORY: His past medical history includes his history of coronary artery disease with a coronary artery bypass graft x4. He had a history of aortic stenosis and had an aortic valve replacement. He has had a pacemaker since 2012. He has a longstanding history of hypertension and hypercholesterolemia. PAST SURGICAL HISTORY: Includes his cardiac surgery. He had a left inguinal herniorrhaphy. He has had a tonsillectomy and adenoids removed as well as cataracts removed. CURRENT MEDICATIONS: Home medicines include atorvastatin 40 mg at bedtime. He has nitroglycerin for p.r.n. use. He takes calcium acetate 667 mg 2 with each meal. He is still on prednisone 5 mg daily as prescribed by his bus monitor. He takes a multivitamin daily. He also takes tamsulosin 0.4 mg daily. His treatment medications include p.r.n. acetaminophen and p.r.n. loperamide. He also gets Mircera 75 mcg every 4 weeks. He has nitroglycerin for p.r.n. use and he gets calcitriol 0.75 mcg with each dialysis treatment. His heparin dose with dialysis is 3000 unit bolus and 1000 units an hour. ALLERGIES: No known drug allergies. FAMILY HISTORY: There is a family history of kidney stones. Additionally, his father suddenly during surgery. He had a history of coronary artery disease. His mother at age 59 of a CVA. REVIEW OF SYSTEMS: Unremarkable other than the issues noted above. OBJECTIVE: GENERAL: When seen by me, dialysis had been started. He was lying comfortably in bed. He was awake, alert and oriented and appeared to be in no distress. VITAL SIGNS: His blood pressure was 139/77, his pulse 79 and slightly irregular, respiratory rate 18, his pulse ox 95% on room air. His temperature was 98.1. SKIN: Showed normal skin turgor. He had no rash, although he does have changes of mild venous stasis dermatitis of his distal lower extremities. He had scars from surgical procedures including his midsternal scar from coronary artery bypass surgery and a scar beneath the distal right clavicle from his pacemaker. He has a left upper arm AV fistula with a scar in the antecubital fossa as well as multiple dialysis needle track villalobos over the fistula. He has a scar from a left inguinal herniorrhaphy. LYMPHATICS: Show no palpable lymphadenopathy. HEAD: Normal. EYES: Grossly normal. The ocular fundi were not examined. EARS: Showed him to be wearing hearing aids bilaterally. With them, his hearing was reasonably good. I did not examine the external canals or tympanic membranes. NOSE, MOUTH AND THROAT: Unremarkable except for multiple missing teeth. Oral mucous membranes are moist. NECK: Supple. He has no jugular venous distention, carotid bruit or thyromegaly. CHEST: Clear to auscultation. I heard no wheezes, rales or rhonchi. I did not hear the pleural friction rub that I heard 2 days ago. CARDIAC: Showed a basically regular rhythm. S1 and S2 seem normal. He has normal bioprosthetic valve sounds. I heard no murmur or gallop. ABDOMEN: Somewhat obese, but nontender. There is no organomegaly or mass. GENITAL AND RECTAL: Not done. EXTREMITIES: Showed no cyanosis or clubbing. He had no lower extremity edema, although he did have changes of venous stasis dermatitis. Peripheral pulses are diminished, but present. I heard no bruits over major blood vessels. NEUROLOGIC: Showed him to be alert and oriented. He had no lateralizing changes. Deep tendon reflexes were equal and symmetrical, although ankle jerks were diminished. He had essentially normal sensation to light touch and pain. PERTINENT LABORATORY WORK: From today showed a white count of 5580. On admission yesterday, his white cell differential was normal. His hemoglobin is 10.1 with a hematocrit of 32.5. Red cell indices are somewhat hypochromic and microcytic. His platelet count is 153,000. His clinical chemistries from today show a sodium of 134 mmol/L, potassium 5.9 mmol/L, chloride 103 mmol/L, and CO2 content 27 mmol/L. His BUN was 27. His creatinine 5.02. His random blood sugar was 110. His serum calcium is 8.3. His troponin bumped up to 1.710. On admission yesterday, it was 0.523 which is minimally higher than his baseline. His ProBNP is 27,054. His serum albumin done yesterday was 3.0. His chest x-ray as noted showed evidence of pulmonary edema. His EKG that was done showed a paced rhythm. The quality of the tracing appears to be somewhat poor. ASSESSMENT: Mr. Poon is an 83-year-old gentleman with end-stage renal disease which was multifactorial, but at least in part related to nephrolithiasis. He has a history of coronary artery disease and cardiomegaly. He presents with evidence of pulmonary edema which in part is related to dietary indiscretion. His troponin is trending up where upward which may be a supply and demand factor as opposed to a true SD. Nonetheless, an SD needs to be ruled out. At the current time, his vital signs are stable and he certainly is in no distress. His other issues are stable. PLAN: Continue with his usual outpatient medications. Continue to monitor his troponin. He is being dialyzed today and will attempt to remove 4 liters (8 pounds). Hopefully, that will not volume deplete him, but it should improve his respiratory status. Trending chest x-rays will be helpful, although they may lag behind his clinical or physical examination. His blood count shows a hypochromic microcytic anemia. We do follow iron studies in the dialysis unit. They have been normal, but given the appearance of his smear, we will have to consider using iron if his ferritin is not unusually high and his transferrin saturation is not unusually high. Thank you for allowing me to participate in his medical care. I will follow him with you.
[2018-10-30] MEDS ORDERED: Heparin IV Low Dose *NO* Bolus IV SCH (16:08)
[2018-10-30] MEDS ORDERED: HEPARIN 25000 UNIT/500 ML D5W IV ONE (16:52)
--- NOTE | 2018-10-30 17:03 | Hospitalist Progress Note ---
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 Patient has dialysis on Wednesdays and Fridays and reports he thinks the last 2 sessions has had decreased amount of fluid taken off. Patient denies any cough or fever or CP. Denies increased LE edema. Reports increased fluid intake than recommended. Appreciate nephrology input and recommendation Status post hemodialysis and the patient has been feeling a lot better (3) Elevated troponin: Troponin: 0.5. Denies CP. EKG paced rhythm Chronic troponin elevation at 0.3 in setting of renal disease CHEST PAIN R/O ACS. Risk factors: HTN, hyperlipidemia, DM, obesity, tobacco use EKG shows paced rhythm Echocardiogram shows; moderate concentric left medical hypertrophy, moderate global hypokinesis of the left ventricle, apical wall motion abnormality may reflect pacemaker activation, EF is 30-35%, diastolic dysfunction grade 2 consis tent with a left atrial increased pressure, bioprosthetic aortic valve, mild MR and moderate TR and there is no significant difference compared with echo in 2017 Serial troponin went up to 3.2 from 0.5 on admission Patient denies any chest pain or cardiac symptoms We will start him on intravenous heparin low-dose without bolus Discussed with on-call digital media analyst Likely secondary to CHF and is complicated by end-stage renal disease We will recheck troponin tomorrow if the trend is towards down, will let him go (4) ESRD on dialysis: MWF schedule. 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 Baseline ~12. Pt is [employer] -monitor H&H (7) BPH (benign prostatic hyperplasia): -continue flomax (8) HTN (hypertension): Not on any medications -monitor BP (9) Pacemaker: Hx pacemaker (10) Chronic pain: Reported chronic shoulder pain Pt states ran out of his oxycodone that he takes daily at night and since he has been feeling anxious. In ER was given morphine with moderate relief of pain and reports less anxiety -continue oxycodone (11) Bullous pemphigoid: -on chronic prednisone DVT Prophylaxis -SCDs Full Code as per discussion with pt Follows with Dr Hosue for routine care Pt was seen with Dr Hanna. See addendum Subjective 10/30 The patient was seen and examined the medical telemetry unit Pt is 83 y/o M with PMH ESRD on HD, CAD s/p CABG, history of pacemaker, chronic anemia, HTN, dyslipidemia, hyperparathyroidism, BPH, bullous pemphigoid prese nted to ER with complaint of shortness of breath He is a status post dialysis today, feeling better and wants to go home Denies any chest pain and/or shortness of breath Review of Systems Review of Systems: Denies any symptoms whatsoever except generalized weakness Physical Exam Physical Exam: No apparent distress at rest Constitutional: WD/WN, vitals as above well developed Eyes: PERRL, conjunctivae normal, anicteric sclerae ENMT: external ear and nose normal, oropharynx normal Neck: trachea midline, no thyromegaly Respiratory: normal respiratory effort Auscultation: + diminished lung sounds and + crackles (Minimal crackles at the bases); no wheezes Cardiovascular: Rate/Rhythm: regular rate and regular rhythm Heart Sounds: normal S1, normal S2 and + murmur (2/6 ejection systolic murmur over precordium) Gastrointestinal (Abdomen): Inspection/Auscultation: abdomen normal to inspection Musculoskeletal: No acute arthritis involving any joints Neurologic: Alert, awake and oriented x3. Generally weak Results & Data Vital Signs (Past 12 Hours) Vital Signs Temp Pulse Pulse Pulse Resp BP BP 10/30/18 14:05 36.5 C 91 H 131/69 10/30/18 13:38 91 H 131/69 10/30/18 13:00 85 133/61 10/30/18 12:40 83 132/71 10/30/18 12:20 88 137/77 10/30/18 12:07 88 133/77 10/30/18 11:40 82 146/78 H 10/30/18 11:20 82 144/81 H 10/30/18 11:00 79 139/77 10/30/18 10:40 84 136/70 10/30/18 10:20 81 118/64 10/30/18 10:00 79 114/56 L 10/30/18 09:40 65 99/43 L 10/30/18 09:35 36.7 C 55 L 55 L 116/54 L 10/30/18 09:20 36.8 C 78 18 112/52 L 10/30/18 05:03 36.8 C 81 18 115/70 Pulse Ox 10/30/18 14:05 10/30/18 13:38 10/30/18 13:00 10/30/18 12:40 10/30/18 12:20 10/30/18 12:07 10/30/18 11:40 10/30/18 11:20 10/30/18 11:00 10/30/18 10:40 10/30/18 10:20 10/30/18 10:00 10/30/18 09:40 10/30/18 09:35 10/30/18 09:20 95 10/30/18 05:03 98 Laboratory Results Short CBC 10/29/18 10/30/18 Range/Units 17:52 06:32 WBC 7.43 5.58 (4.8-10.8) K/uL Hgb 11.2 L 10.1 L (14.0-18.0) g/dL Hct 35.8 L 32.5 L (42-52) % Plt Count 181 153 (130-400) K/uL BMP 10/29/18 10/30/18 17:47 06:32 Sodium 135 L 134 L Potassium 5.1 5.9 H D Chloride 101 103 Carbon Dioxide 29 27 BUN 22 H 27 H Creatinine 4.42 H 5.02 H* D Glucose 89 110 H Calcium 8.7 8.3 L Cardiac Enzymes 10/29/18 10/29/18 10/30/18 Range/Units 17:47 22:47 06:32 Troponin I 0.519 H* 0.523 H* 1.710 H* (0-0.045) ng/ml 10/30/18 Range/Units 14:48 Troponin I 3.230 H* (0-0.045) ng/ml Liver Function 10/29/18 Range/Units 17:47 Total Bilirubin 0.5 (0.2-1) mg/dl AST 20 (15-37) U/L ALT 16 (12-78) U/L Alkaline Phosphatase 115 (45-117) U/L Albumin 3.0 L (3.4-5.0) gm/dl Medications Administered Current Inpatient Medications Acetaminophen (Tylenol) 650 mg PO Q4H PRN PRN Reason: Pain or Fever Stop: 11/28/18 22:18 Atorvastatin Calcium (Lipitor) 40 mg PO PM [facility] Stop: 11/28/18 22:18 Last Admin: 10/29/18 23:13 Dose: 40 mg Documented by: Calcium Acetate (Phoslo) 1,334 mg PO TIDM [facility] Stop: 11/29/18 07:59 Last Admin: 10/30/18 16:47 Dose: 1,334 mg Documented by: Heparin Sodium/Dextrose () 1 ea IV Q15M [facility]; Protocol Stop: 11/29/18 16:07 Sodium Chloride (Nss 1000ml) 1,000 mls @ 0 mls/hr IV .Q0M PRN PRN Reason: For Hemodialysis Use ONLY Stop: 10/30/18 17:24 Nitroglycerin (Nitrostat) 0.4 mg SL UD PRN PRN Reason: Chest Pain Stop: 11/28/18 22:18 Oxycodone HCl (Roxicodone Immediate Rel) 15 mg PO HS [facility] Stop: 11/13/18 20:59 Prednisone (Prednisone) 10 mg PO HS [facility] Stop: 11/29/18 20:59 Last Admin: 10/29/18 23:13 Dose: 10 mg Documented by: Tamsulosin HCl (Flomax) 0.4 mg PO HS [facility] Stop: 11/29/18 20:59 Last Admin: 10/29/18 23:13 Dose: 0.4 mg Documented by: (1) CHF (congestive heart failure) Heart failure chronicity: chronic Heart failure type: unspecified Qualified Code(s): I50.9 - Heart failure, unspecified
[2018-10-30 17:14] LABS: Partial Thromboplastin Ratio 0.9
[2018-10-30] MEDS ORDERED: Heparin Adult LOW DOSE Wt-Based Dextrose 5% 25,000 units/500 mL IV SCH (17:15)
[2018-10-30] MEDS: predniSONE 10 MG TABLET PO SCH (20:57)
[2018-10-30] MEDS: ATORVASTATIN 40 MG TAB PO SCH (20:57)
[2018-10-30] MEDS: TAMSULOSIN HCL 0.4 MG CAP PO SCH (20:57)
[2018-10-30] MEDS ORDERED: OXYCODONE HCL IR 5 MG TAB (IMMEDIATE RELEASE) PO SCH (21:00)
[2018-10-30 23:33] LABS: Partial Thromboplastin Ratio 1.2; Partial Thromboplastin Time 33.2 Seconds (21.0-31.0)
[2018-10-31] MEDS ORDERED: HEPARIN IV BOLUS 4,500 UNITS in SYRINGE 0 ML IV ONE
[2018-10-31 07:07] LABS: Partial Thromboplastin Time 53.9 Seconds (21.0-31.0)
[2018-10-31] MEDS: CALCIUM ACETATE 667 MG CAP PO SCH ×2 (08:32→12:25)
--- NOTE | 2018-10-31 11:30 | Progress Note ---
DATE: 10/31/2018 SUBJECTIVE: Mr. Poon says that he is feeling well and wishes to go home. He denies having any chest pain. He denies having any shortness of breath. He has no symptoms of uremia or volume overload. He tolerated his hemodialysis treatment yesterday and approximately 4 liters of fluid were removed. OBJECTIVE: GENERAL: On physical exam at the current time he appears comfortable and well. He was lying in bed in a minimally semi-May position. VITAL SIGNS: His blood pressure 126/70, his pulse approximately 79 and slightly irregular, respiratory rate 16, his pulse ox 93% on room air. He is afebrile. SKIN: Shows normal skin turgor. He has no rash or infiltrative skin disease. He has scars from prior surgical procedures including a scar from his coronary artery bypass surgery and aortic valve replacement as well as a scar beneath the distal right clavicle from the insertion of his pacemaker. He also has a scar in the left antecubital fossa from the creation of his AV fistula. LYMPHATICS: Show no palpable adenopathy. HEAD: Normal. EYES: Grossly normal. The ocular fundi were not examined. EARS, NOSE, MOUTH AND THROAT: Unremarkable. He does have hearing aids in bilaterally and his oral mucous membranes are moist. He has multiple missing teeth. NECK: Supple. There is no obvious jugular venous distention. He has no carotid bruit or thyromegaly. CHEST: Shows a few scattered wheezes. I hear no rales or rhonchi. I do not hear the pleural friction rub that I heard as an outpatient on 10/28/2018. CARDIAC: Shows a slightly irregular rhythm. S1 and S2 are normal. He has normal bioprosthetic valve sounds. I hear no murmurs or gallops. ABDOMEN: Somewhat obese but nontender. He has no organomegaly or mass. EXTREMITIES: Show no cyanosis or clubbing. He has no current lower extremity edema. Peripheral pulses are diminished but present. He has a left arm AV fistula. NEUROLOGIC: Shows him to be oriented in 3 spheres. He has no lateralizing changes. PERTINENT LABORATORY WORK: From today shows a troponin of 2.790. It peaked yesterday at about 2:00 in the afternoon to 3.230. This is up from his baseline at the time of admission of 0.523. His electrocardiogram done shows a paced rhythm. No obvious ischemic changes can be determined from the EKG. ASSESSMENT: Mr. Poon is feeling dramatically better. I am concerned about the level rise in his troponin. This is beyond what I would have expected, particularly in a patient with end-stage renal disease with supply demand issues alone. However, I would defer to cardiology's interpretation. He still has some wheezes in his chest that could be still reflective of some element of volume overload. This is not a physical finding that we routinely see in Mr. Poon. RECOMMENDATIONS: Defer to cardiology with regard to discharge. If he is discharged, we will try to get some additional fluid off him as an outpatient tomorrow. If he remains in the hospital will plan on dialyzing him tomorrow as well and try to get additional fluid off. Would continue to trend his troponins. Would also check a chest x-ray to see if evidence of his pulmonary edema continues to improve.
--- NOTE | 2018-10-31 11:41 | Hospitalist Progress Note ---
Date of Service October 31, 2018 Assessment & Plan (1) CHF (congestive heart failure): Secondary to ischemic cardiomyopathy with EF of 30-35% Complicated by diastolic dysfunction and end-stage renal disease Status post hemodialysis and feeling better Denies any symptoms of fluid overload, no shortness of breath, chest pain in the palpitation (2) SOB (shortness of breath): Pt presents to ER with c/o SOB and orthopnea past couple of days, worse past day. Patient has dialysis on Wednesdays and Fridays and reports he thinks the last 2 sessions has had decreased amount of fluid taken off. Patient denies any cough or fever or CP. Denies increased LE edema. Reports increased fluid intake than recommended. Appreciate nephrology input and recommendation Status post hemodialysis and the patient has been feeling a lot better Clinically a lot better and wants to go home (3) Elevated troponin: Troponin: 0.5. Denies CP. EKG paced rhythm Chronic troponin elevation at 0.3 in setting of renal disease CHEST PAIN R/O ACS. Risk factors: HTN, hyperlipidemia, DM, obesity, tobacco use EKG shows paced rhythm Echocardiogram shows; moderate concentric left medical hypertrophy, moderate global hypokinesis of the left ventricle, apical wall motion abnormality may reflect pacemaker activation, EF is 30-35%, diastolic dysfunction grade 2 consistent with a left atrial increased pressure, bioprosthetic aortic valve, mild MR and moderate TR and there is no significant difference compared with echo in 2017 Serial troponin went up to 3.2 from 0.5 on admission Patient denies any chest pain or cardiac symptoms We will start him on intravenous heparin low-dose without bolus Discussed with on-call line service technician Likely secondary to CHF and is complicated by end-stage renal disease We will recheck troponin tomorrow if the trend is towards down, will let him go We will check another set of troponin at around 12 At the level is unremarkable we will send him home, discussed with line service technician (4) ESRD on dialysis: MWF schedule. 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 Baseline ~12. Pt is Islam -monitor H&H (7) BPH (benign prostatic hyperplasia): -continue flomax (8) HTN (hypertension): Not on any medications -monitor BP (9) Pacemaker: Hx pacemaker (10) Chronic pain: Reported chronic shoulder pain Pt states ran out of his oxycodone that he takes daily at night and since he has been feeling anxious. In ER was given morphine with moderate relief of pain and reports less anxiety -continue oxycodone (11) Bullous pemphigoid: -on chronic prednisone DVT Prophylaxis -SCDs Full Code as per discussion with pt Follows with Dr House for routine care Will discharge home this afternoon Subjective 10/30 The patient was seen and examined the medical telemetry unit Pt is 83 y/o M with PMH ESRD on HD, CAD s/p CABG, history of pacemaker, chronic anemia, HTN, dyslipidemia, hyperparathyroidism, BPH, bullous pemphigoid presented to ER with complaint of shortness of breath He is a status post dialysis today, feeling better and wants to go home Denies any chest pain and/or shortness of breath 10/31 Patient was seen and examined in medical telemetry unit He has been stable and denies any symptoms of chest pain, shortness of breath and/or palpitation Denies any abdominal pain, nausea and/or vomiting Wants to go home but asking for a wheelchair Review of Systems Review of Systems: Other (All systems reviewed and are unremarkable except noted) Neurologic: + generalized weakness Physical Exam Physical Exam: No apparent distress at rest but generally weak Constitutional: WD/WN, vitals as above well developed Eyes: PERRL, conjunctivae normal, anicteric sclerae ENMT: external ear and nose normal, oropharynx normal Neck: trachea midline, no thyromegaly Respiratory: normal respiratory effort Auscultation: + diminished lung sounds and + crackles (Minimal crackles at the bases); no wheezes Cardiovascular: Rate/Rhythm: regular rate and regular rhythm Heart Sounds: normal S1, normal S2 and + murmur (2/6 ejection systolic murmur over precordium) Gastrointestinal (Abdomen): Inspection/Auscultation: abdomen normal to inspection Musculoskeletal: Has osteoarthritic changes in the hands and feet Neurologic: Alert, awake and oriented x3. Generally weak and lethargic. No focal localizing signs and/or symptoms Results & Data Vital Signs (Past 12 Hours) Vital Signs Temp Pulse Pulse Resp BP Pulse Ox 10/31/18 11:32 36.9 C 89 16 131/73 96 10/31/18 07:42 79 10/31/18 07:15 36.5 C 88 16 126/70 93 10/31/18 04:00 36.6 C 90 20 123/76 95 10/31/18 01:45 96 H (1) CHF (congestive heart failure) Heart failure chronicity: chronic Heart failure type: unspecified Qualified Code(s): I50.9 - Heart failure, unspecified
--- NOTE | 2018-11-01 08:32 | Discharge Summary ---
Date of Service November 01, 2018 Admission HPI Per Admitting Provider Pt is 83 y/o M with PMH ESRD on HD, CAD s/p CABG, history of pacemaker, chronic anemia, HTN, dyslipidemia, hyperparathyroidism, BPH, bullous pemphigoid presented to ER with complaint of shortness of breath. Patient states his been feeling short of breath for the past couple of days which is worsening the past day. Complains of orthopnea. Reports chronic bilateral lower extremity edema unsure if any worse. Patient has dialysis on Wednesdays and Fridays and reports he thinks the last 2 sessions has had decreased amount of fluid taken off. Patient denies any cough or fever or chest pain. Pt reports that he drinks more fluid than he is supposed to with his fluid restrictions but is unable to give an amount. He states that he takes oxycodone 10 for chronic shoulder pain and ran out 4 days ago and since has been feeling increased anxiety. Patient had chest x-ray 10/28/18 which showed improving congestive heart failure compared to chest x-ray on 10/18/18. History ER visit on 10/18/18 for shortness of breath which had improved and was discharged home. Denies fever/chills, diaphoresis, N/V/D/C, [place], dizziness, syncope, vision changes, neck pain, CP, palpitations, sore throat, choking, otalgia, rhinorrhea, abdominal pain, paresthesias, weakness, urinary symptoms. Hx echo 2017: EF: 35-40%, grade II diastolic dysfunction Admission Exam Per Admitting Provider Vital Signs (Past 24 Hours): Last Vital Signs Temp 36.4 C L 10/29/18 17:14 Pulse 82 10/29/18 19:02 Resp 16 10/29/18 19:02 BP 118/66 10/29/18 19:02 Pulse Ox 99 10/29/18 19:02 Physical Exam: General: no acute distress, WDWN Head: normocephalic, atraumatic Eyes: PERRL, EOM's intact, conjunctiva non-injected, anicteric ENT: normal inspection external ears, nose, mucous membranes moist Neck: supple, trachea midline Lungs: no respiratory distress on 2L oxygen, R:18 and without retractions, +scattered wheezing, faint rales bases CV: RRR, 1-2+ pretibial edema Abd: normal BS, soft, non-tender Ext: no cyanosis, no calf tenderness Neuro: A&O x 3, no focal deficits noted, normal affect Skin: warm, dry Principal Diagnosis Acute systolic congestive heart failure, fluid overload, end-stage renal disease on hemodialysis, chronic elevation of troponin Discharge Exam Constitutional WD/WN, vitals as above well developed Eyes PERRL, conjunctivae normal, anicteric sclerae ENMT external ear and nose normal, oropharynx normal Neck trachea midline, no thyromegaly Respiratory normal respiratory effort Auscultation: + diminished lung sounds and + crackles (Minimal crackles at the bases); no wheezes Cardiovascular Rate/Rhythm: regular rate and regular rhythm Heart Sounds: normal S1, normal S2 and + murmur (2/6 ejection systolic murmur over precordium) Gastrointestinal (Abdomen) Inspection/Auscultation: abdomen normal to inspection Discharge Data Allergies Allergy/AdvReac Type Severity Reaction Status Date / Time No Known Drug Allergies Allergy Unknown . Verified 10/29/18 18:20 Consultations 10/29/18 19:05 ED Decision to Admit Stat 10/29/18 22:19 Consult Case Management - Discharge Planning Routine Consult Nephrology Routine 10/31/18 11:38 Consult Case Management - Discharge Planning Routine Hospital Course (1) CHF (congestive heart failure): Secondary to ischemic cardiomyopathy with EF of 30-35% Complicated by diastolic dysfunction and end-stage renal disease Status post hemodialysis and feeling better Denies any symptoms of fluid overload, no shortness of breath, chest pain in the palpitation (2) SOB (shortness of breath): Pt presents to ER with c/o SOB and orthopnea past couple of days, worse past day. Patient has dialysis on Wednesdays and Fridays and reports he thinks the last 2 sessions has had decreased amount of fluid taken off. Patient denies any cough or fever or CP. Denies increased LE edema. Reports increased fluid intake than recommended. Appreciate nephrology input and recommendation Status post hemodialysis and the patient has been feeling a lot better Clinically a lot better and wants to go home (3) Elevated troponin: Troponin: 0.5. Denies CP. EKG paced rhythm Chronic troponin elevation at 0.3 in setting of renal disease CHEST PAIN R/O ACS. Risk factors: HTN, hyperlipidemia, DM, obesity, tobacco use EKG shows paced rhythm Echocardiogram shows; moderate concentric left medical hypertrophy, moderate global hypokinesis of the left ventricle, apical wall motion abnormality may reflect pacemaker activation, EF is 30-35%, diastolic dysfunction grade 2 consistent with a left atrial increased pressure, bioprosthetic aortic valve, mild MR and moderate TR and there is no significant difference compared with echo in 2017 Serial troponin went up to 3.2 from 0.5 on admission Patient denies any chest pain or cardiac symptoms We will start him on intravenous heparin low-dose without bolus Discussed with on-call shoe trimmer Likely secondary to CHF and is complicated by end-stage renal disease We will recheck troponin tomorrow if the trend is towards down, will let him go We will check another set of troponin at around 12 At the level is unremarkable we will send him home, discussed with shoe trimmer (4) ESRD on dialysis: MWF schedule. 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 Baseline ~12. Pt is Qu[place] -monitor H&H (7) BPH (benign prostatic hyperplasia): -continue flomax (8) HTN (hypertension): Not on any medications -monitor BP (9) Pacemaker: Hx pacemaker (10) Chronic pain: Reported chronic shoulder pain Pt states ran out of his oxycodone that he takes daily at night and since he has been feeling anxious. In ER was given morphine with moderate relief of pain and reports less anxiety -continue oxycodone (11) Bullous pemphigoid: -on chronic prednisone DVT Prophylaxis -SCDs Full Code as per discussion with pt Follows with Dr House for routine care Will discharge home this afternoon Total Time Total Time Spent Total Time Spent (In Minutes): 35 minutes Total Time Includes: Examination of the Patient, Discharge Planning, Medication Reconciliation and Communication With Other Providers Discharge Plan Discharge Items Patient Disposition: Home - Self-Care Reason For Visit: SOB Discharge Diagnosis: Acute systolic congestive heart failure, fluid overload, end-stage renal disease on hemodialysis, chronic elevation of troponin Condition: Good Discharge Goals: Decrease discomfort, Improve function and Increase independence Activity: Resume your previous activity Non-emergency contact: Primary Care Provider Call non-emergency contact if: you have any medication questions and your symptoms worsen Follow-up/Referrals: Suly House, [Primary Care Provider] - 11/06/18 10:05 am (Your appointment is with Dr. Salcedo. Dr. Coronado is not available. Continue dialysis as an outpatient) Diet: Dialysis Renal, Heart Healthy and Low Sodium (2gm) Fluids: 1500ml (6 cups) Addtl Provider Instructions: Please take precaution to avoid falls Call 911 and go to the Emergency Room if: * You have tightness or pain in your chest that does not go away with rest or Nitroglycerin * You are very short of breath even with rest Call your doctor if any of the following symptoms or problems start or get worse: * Shortness of breath or difficulty breathing * Wake up at night short of breath * Chest pain * Cough * Swelling of your hands, fee, or legs * More fatigued or tired with your normal activity * Palpitations - sudden fast heart beats WEIGHT * Weigh yourself every morning after using the bathroom. * Use the same scale. * Wear the same amount of clothing. * Write your weight down on your chart. * Call your doctor if you gain more than 2-3 pounds in 1-2 days. MEDICATIONS * Use this discharge instruction sheet for instructions. * Take your medications at the time your doctor ordered. * Do not skip a dose of your medicines. * If you miss a dose of medicine, take as soon as possible, but DO NOT DOUBLE A DOSE. * Read your medicine information when you get home. * Know all of the side effects of your medicine. * Call your doctor's office if you have any side effects. * Be sure all of your doctors know what medicine and herbs you take (including cold, flu, and herbal medicine). * Pain Medicine: If you do not get relief from your pain, please call your doctor for help. Take the following with you to your follow-up doctor appointments: * Weight Chart * Medication List * List of questions Do not drink excessive alcohol, beer or wine. Prescriptions: Continued atorvastatin [Lipitor] 40 mg Tablet 40 mg PO PM RF: 0 oxycodone 15 mg Tablet 15 mg PO HS PRN (Reason: Pain) RF: 0 tamsulosin [Flomax] 0.4 mg Capsule 0.4 mg PO DAILY RF: 0 prednisone 10 mg tablet 10 mg PO DAILY RF: 0 nitroglycerin [Nitrostat] 0.4 mg Tablet, Sublingual 0.4 mg sublingual UD RF: 0 calcium acetate 667 mg capsule 2 cap PO TIDM RF: 0 Stand-Alone Forms: [facility] Discharge Orders: Discharge Order (Routine); Ordered 10/31/18 Ordered By: Marilyn Terrell Admission Data Admit Date/Time: 10/29/18 20:03 Attending Provider: Marilyn Terrell Admit Provider: Aurora Hanna Primary Care Provider: Suly House Other Providers: Aurora Hanna ; Tone Jj Service: Telemetry Medical Other Interventions: Discharge Summary Assessment (RN) Last Done: 10/31/18 15:30 DC Date/Time DO NOT enter until pt leaves facility: 10/31/18 16:06
== END 2018-10-31 16:06 | disposition home or self-care (01) | DRG 291 ==
LOC: ED 17:11 → 2N 20:03

== ENCOUNTER 2019-11-19 14:50 | Inpatient (IN) ==
[2019-11-19] MEDS ORDERED: ACETAMINOPHEN 325 MG TAB PO STA (15:29)
--- NOTE | 2019-11-19 15:36 | Emergency Department Note ---
Impression & Plan Closed fracture of symphysis pubis, Fall, Closed compression fracture of L1 vertebra ED Provider Note NAME: NICK NELSON AGE: 84 SEX: M : 1935 ARRIVES VIA: Ambulance INFORMANT: Patient, ED PROVIDER(S): Alejandro Quevedo MD Chief Complaint: Fall HPI: Patient is present status post fall. The patient reportedly fell prior to his dialysis this morning around 9 AM. He states he fell forward and then backwards. The patient struck his head but he does not believe that he lost consciousness. No blood thinners. Patient does have pain in his head bilateral hips lower back and left shoulder. The patient states he typically does take Tylenol for pain but did not today. Movement does make the pain worse. No alleviating factors other than rest. The patient did complete his full dialysis today. ROS: See HPI for pertinent positives and negatives. A total of 10 systems were reviewed and otherwise negative. Past medical history: See below Surgical history: See below Social history: See below Physical Exam: GENERAL: Well appearing, well nourished, NAD, non-toxic. Wearing a mask and glasses. EYE EXAM: Normal conjunctiva. PERRL, no anisocoria and EOM's grossly intact w/o pain. Head: Normocephalic no obvious deformities or lacerations. NECK: Supple, no nuchal rigidity, no adenopathy, non-tender. No signs of meningismus. No midline C-spine TTP. Chest: No chest wall discomfort or crepitus. Device in left chest. LUNGS: Clear to auscultation. Normal chest wall mechanics. HEART: NSR, no MRG. ABDOMEN: Abdomen soft, non-tender, normo-active bowel sounds, no masses, no rebound or guarding. BACK: No CVA TTP. Mild pain in the lower lumbar spine. SKIN: No rashes and no bruising. UPPER EXTREMITIES: Upper extremities are grossly normal. LOWER EXTREMITIES: Grossly normal, no edema. Pain within the left shoulder and left clavicle without obvious deformity. Decreased range of motion secondary to pain bilateral upper extremities. Compartments are soft. NEURO EXAM: A&O x3, cranial nerves II-XII grossly intact, normal speech, moves all 4 extremities on command but patient does have limited movement of his bilateral lower extremity secondary to pain. No sensory deficits. Differential diagnoses: Fracture, dislocation, contusion, intra-abdominal, pneumothorax, intrathoracic, intracranial, neurologic, compartment syndrome, rhabdomyolysis, as well as other pathologies. Course: Patient was seen and evaluated the bedside. A full history and physical exam was performed. EKG: Location: Fall AV dual paced rhythm with prolonged SD, rate of 116, wide QRS, left bundle branch block pattern. Dual paced rhythm slightly changed compared to atrial sensed V paced rhythm from prior EKG January 08, 2019. SD also may be slightly more prolonged but the morphology is unchanged. Imaging Studies: Radiology results as stated below per my review in the radiologist's interpretation: Study: CT bony pelvis HISTORY: Trauma. Pain. FINDINGS: Old healed fracture left pubic ring. Degenerative change of the hips bilaterally. No well-defined acute abnormality Nondisplaced cortical fracture right symphysis pubis. Immediately superior to the symphysis pubis to the right of midline is a probable posttraumatic soft tissue contusion or hematoma. This measures 3 x 2 cm. Mild surrounding parenchymal infiltrative changes present. No evidence for an acute or additional bony abnormality. IMPRESSION: 1. Nondisplaced cortical fracture right symphysis pubis. 2. Posttraumatic soft tissue contusion posterior and superior to the right symphysis pubis measuring 3 x 2 cm. 3. Old healed fracture left pubic ring Electronically signed by: Romaine Fine M.D. 11/19/2019 4:35 PM Dictated: 11/19/19 1630 Transcribed: 11/19/[address] lumbar spine wo con CT DOSE: HISTORY: Trauma. Pain. s/p fall TECHNIQUE: Multiaxial CT images of the lumbar spine were performed and reformatted in the sagittal and coronal plane without the use of contrast. A dose lowering technique was utilized adhering to the principles of ALARA. COMPARISON: None. FINDINGS: 30% compression deformity superior endplate L1. No evidence for posterior displacement of the vertebral body. No associated soft tissue mass. Generalized osteoporosis. All remaining components of the lumbar region showed generalized degenerative change and osteoporosis. No additional fracture is appreciated. No major or significant bony displacement. Significant degenerative disc changes throughout the entire lumbar region. IMPRESSION: 1. 30% compression deformity superior endplate of L1. 2. This shows no evidence for posterior displacement or compromise of the spinal canal. 3. Remainder the study is remarkable for generalized degenerative disc change and osteoporosis. ACT 112: Negative or not required by law. The above report was generated using voice recognition software. It may contain grammatical, syntax or spelling errors. Electronically signed by: Romaine Fine M.D. 11/19/2019 4:26 PM Dictated: 11/19/19 1624 Transcribed: 11/19/[address] head/brain wo con CT DOSE: HISTORY: Trauma s/p fall, struck posterior of head TECHNIQUE: Multiaxial CT images of the head were performed without the use of intravenous contrast. A dose lowering technique was utilized adhering to the principles of ALARA. Comparison: None. Findings: The paranasal sinuses and mastoid air cells are clear. The calvarium and skull base are intact. The ventricles and sulci are within normal limits. There is no mass, hematoma, midline shift, or acute infarct. Mild age-related atrophy and chronic small vessel change. No acute intracranial hemorrhage. Impression: No acute intracranial abnormality. Age-related change. ACT 112: Negative or not required by law. The above report was generated using voice recognition software. It may contain grammatical, syntax or spelling errors. Electronically signed by: Romaine Fine M.D. 11/19/2019 4:21 PM Dictated: 11/19/19 1620 Transcribed: 11/19/19 162 XR clavicle 2 view LT CLINICAL HISTORY: pain post fall COMPARISON: 11/06/2016 DISCUSSION: Deformity left humeral head and neck consistent with an old healed fracture. Considerable degenerative changes of the articular surfaces. No well-defined superimposed acute process. There is no evidence for soft tissue swelling. IMPRESSION: Deformity left humeral head and neck consistent with an old healed fracture. Degenerative change. No acute process. ACT 112: Negative or not required by law. The above report was generated using voice recognition software. It may contain grammatical, syntax or spelling errors. Electronically signed by: Romaine Fine M.D. 11/19/2019 4:50 PM Dictated: 11/19/19 1649 Transcribed: 11/19/19 1649 XR chest 1V portable CLINICAL HISTORY: screening post fall trauma COMPARISON STUDY: 01/08/2019 FINDINGS: Moderate stable cardiomegaly. Prior median sternotomy. Bipolar cardiac pacemaker with leads in good position. Mildly prominent pulmonary vasculature. IMPRESSION: Pulmonary vascular congestion. ACT 112: Negative or not required by law. The above report was generated using voice recognition software. It may contain grammatical, syntax or spelling errors. Electronically signed by: Romaine Fine M.D. 11/19/2019 4:49 PM Dictated: 11/19/19 1648 Transcribed: 11/19/[address] cervical spine wo con CT DOSE: 2416.85 mGy.cm HISTORY: Trauma. Pain. fall TECHNIQUE: Multiaxial CT images of the cervical spine were performed and reformatted in the sagittal and coronal plane without the use of contrast. A dose lowering technique was utilized adhering to the principles of ALARA. COMPARISON: None. FINDINGS: Moderate generalized degenerative disc changes throughout. Vertebral body stature is normal. No evidence for compression deformity. IMPRESSION: Degenerative change. No acute process. ACT 112: Negative or not required by law. The above report was generated using voice recognition software. It may contain grammatical, syntax or spelling errors. Electronically signed by: Romaine Fine M.D. 11/19/2019 4:23 PM Dictated: 11/19/19 1621 Transcribed: 11/19/19 162 Cardiac monitoring: An order was placed for continuous cardiac monitoring. The monitor shows a rate of 92 with paced rhythm. MDM: Patient was seen status post fall. The patient was complaining of some pain. The patient did have CTs ordered along with plain x-rays to rule out traumatic injury. Patient was ordered Tylenol by mouth. Patient CTs and imaging studies do show an old left humerus fracture, L1 compression fracture as well as right pubic symphysis fracture that is nondisplaced. I did speak with Dr. Jacinto who recommended weightbearing as tolerated. Blood work was obtained as the patient does have ambulatory dysfunction and and is unable to walk right now. Given the hour the patient is unable to be placed or sent to rehab at this time. I did speak with the on-call hospitalist service and the patient was to be admitted to Dr. Euceda's service. 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) HTN (hypertension) (Chronic) Pacemaker (Chronic) Renal calculi (Chronic) Surgical History Aortic valve replaced (Chronic) H/O inguinal hernia repair (Chronic) History of cataract surgery (Chronic) History of tonsillectomy (Chronic) Hx of CABG (Chronic) Family History Other Coronary heart disease Hypertension Stroke Social History Preferred Language: Latvian Communication Ability: Effective 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 Beliefs That Will Affect Care: Adventism Adventism Beliefs: Jehovah Witness, no blood transfusions marital status: Current Living Situation: Spouse current occupational status: retired Other Information That Helps Us Care for You: No Feels Safe at Home: Yes Safety Concerns: Feels Safe At This Time Smoking Status: Never smoker Do You Dip or Chew Tobacco: No ; Second Hand Ex posure: No ; Tobacco Cessation Education Requested by Patient: No Hx Alcohol Use: No Hx Substance Use: No Allergies Allergies Allergy/AdvReac Type Severity Reaction Status Date / Time No Known Drug Allergies Allergy Unknown . Verified 11/19/19 15:53 Home Meds Home Medications Medication Instructions Recorded Confirmed calcium acetate(phosphat bind) 667 1,334 mg PO TIDM cap 04/02/19 11/19/19 mg capsule tamsulosin 0.4 mg capsule 0.4 mg PO HS #90 cap 04/02/19 11/19/19 aspirin [Aspirin Low Dose] 81 mg PO DAILY 11/19/19 11/19/19 atorvastatin 40 mg PO DAILY 11/19/19 11/19/19 nitroglycerin [Nitrostat] 0.4 mg SUBLINGUAL UD PRN 11/19/19 11/19/19 Previous Rx's Medication Instructions Recorded oxycodone-acetaminophen 5 mg-325 1 tab PO BID #60 tab 11/05/19 mg tablet Results & Data (ED) Vital Signs Vital Signs - 24 hr 11/19/19 14:54 11/19/19 14:58 11/19/19 15:00 Temperature 36.3 C L Temperature Source Oral Pulse Rate 105 H 97 H 86 Pulse Rate [Apical] Pulse Rate from SpO2 Sensor 106 H 97 H 89 Pulse Rhythm Regular Respiratory Rate 24 24 Respiratory Effort / Characteristics Non-Labored Spontaneous Respiratory Depth Normal Respiratory Pattern Regular Blood Pressure 112/87 112/87 Blood Pressure [Right Arm] Blood Pressure Mean 100 95 Blood Pressure Mean [Right Arm] Pulse Oximetry 92 93 91 Oxygen Delivery Method Room Air Sepsis Recent Fever Within 48 Hours No Sepsis New/Unexplained Change in Mental Status No Sepsis Action Taken by Nursing No Action Required 11/19/19 15:30 11/19/19 15:46 11/19/19 15:47 Temperature Temperature Source Pulse Rate 86 85 85 Pulse Rate [Apical] Pulse Rate from SpO2 Sensor 78 87 84 Pulse Rhythm Respiratory Rate 23 21 23 Respiratory Effort / Characteristics Respiratory Depth Respiratory Pattern Blood Pressure 129/69 Blood Pressure [Right Arm] Blood Pressure Mean 102 Blood Pressure Mean [Right Arm] Pulse Oximetry 95 95 94 Oxygen Delivery Method Sepsis Recent Fever Within 48 Hours Sepsis New/Unexplained Change in Mental Status Sepsis Action Taken by Nursing 11/19/19 16:27 11/19/19 16:30 11/19/19 16:31 Temperature Temperature Source Pulse Rate 81 79 77 Pulse Rate [Apical] Pulse Rate from SpO2 Sensor 78 Pulse Rhythm Respiratory Rate 21 23 Respiratory Effort / Characteristics Respiratory Depth Respiratory Pattern Blood Pressure 114/49 L Blood Pressure [Right Arm] Blood Pressure Mean 79 Blood Pressure Mean [Right Arm] Pulse Oximetry 94 Oxygen Delivery Method Sepsis Recent Fever Within 48 Hours Sepsis New/Unexplained Change in Mental Status Sepsis Action Taken by Nursing 11/19/19 16:42 11/19/19 17:00 11/19/19 17:30 Temperature Temperature Source Pulse Rate 78 80 Pulse Rate [Apical] 80 Pulse Rate from SpO2 Sensor 74 Pulse Rhythm Respiratory Rate 20 21 19 Respiratory Effort / Characteristics Non-Labored Spontaneous Respiratory Depth Normal Respiratory Pattern Regular Blood Pressure 92/49 L 96/48 L Blood Pressure [Right Arm] 114/49 L Blood Pressure Mean 65 65 Blood Pressure Mean [Right Arm] 70 Pulse Oximetry 94 95 96 Oxygen Delivery Method Room Air Sepsis Recent Fever Within 48 Hours Sepsis New/Unexplained Change in Mental Status Sepsis Action Taken by Nursing 11/19/19 17:31 Temperature Temperature Source Pulse Rate 79 Pulse Rate [Apical] Pulse Rate from SpO2 Sensor Pulse Rhythm Respiratory Rate 22 Respiratory Effort / Characteristics Respiratory Depth Respiratory Pattern Blood Pressure Blood Pressure [Right Arm] Blood Pressure Mean Blood Pressure Mean [Right Arm] Pulse Oximetry Oxygen Delivery Method Sepsis Recent Fever Within 48 Hours Sepsis New/Unexplained Change in Mental Status Sepsis Action Taken by Longterm Medications Current Medication List: was personally reviewed by me Laboratory Data Attestation: I reviewed the patient's lab results. Result diagrams: 11/19/19 18:00 11/19/19 18:00 Administered Medications Acetaminophen (Tylenol) 650 mg PO Q8H GENEVIEVE Stop: 12/19/19 19:37 Last Admin: 11/19/19 20:16 Dose: 650 mg Documented by: [id number] Oxycodone HCl (Roxicodone Immediate Rel) 5 mg PO Q6H PRN PRN Reason: Pain Stop: 12/03/19 19:37 Last Admin: 11/19/19 20:16 Dose: 5 mg Documented by: [id number] Tamsulosin HCl (Flomax) 0.4 mg PO HS GENEVIEVE Stop: 12/19/19 20:59 Last Admin: 11/19/19 20:17 Dose: 0.4 mg Documented by: [id number] Discontinued Medications Acetaminophen (Tylenol) 650 mg PO NOW STA Stop: 11/19/19 15:30 Last Admin: 11/19/19 15:51 Dose: 650 mg Documented by: [id number] Blood Pressure Blood Pressure Findings: Normal blood pressure Discharge Plan Visit Data *Final* Discharge Date/Time: 11/19/19 18:42 Chief Complaint: Fall ED Provider: Alejandro Quevedo Discharge Problem: Closed fracture of symphysis pubis, Fall, Closed compression fracture of L1 vertebra Patient Disposition: Admitted As Inpatient Discharge Instructions Interventions: ED Discharge Assessment Last Done: 11/19/19 18:42 Discharge Problem: Closed fracture of symphysis pubis Qualifiers: Encounter type: initial encounter Laterality: right Qualified Code(s): S32.591A - Other specified fracture of right pubis, initial encounter for closed fracture Fall Qualifiers: Encounter type: initial encounter Qualified Code(s): W19.XXXA - Unspecified fall, initial encounter Closed compression fracture of L1 vertebra Qualifiers: Encounter type: initial encounter Qualified Code(s): S32.010A - Wedge compression fracture of first lumbar vertebra, initial encounter for closed fracture
--- NOTE | 2019-11-19 16:22 | CT Scan Report ---
CT head/brain wo con CT DOSE: HISTORY: Trauma s/p fall, struck posterior of head TECHNIQUE: Multiaxial CT images of the head were performed without the use of intravenous contrast. A dose lowering technique was utilized adhering to the principles of ALARA. Comparison: None. Findings: The paranasal sinuses and mastoid air cells are clear. The calvarium and skull base are int act. The ventricles and sulci are within normal limits. There is no mass, hematoma, midline shift, or acute infarct. Mild age-related atrophy and chronic small vessel change. No acute intracranial hemor rhage. Impression: No acute intracranial abnormality. Age-related change. ACT 112: Negative or not required by law. The above report was generated using voice recognition software. It may contain grammatical, syntax or spelling errors. Electronically signed by: Romaine Fine M.D. 11/19/2019 4:21 PM
--- NOTE | 2019-11-19 16:24 | CT Scan Report ---
CT cervical spine wo con CT DOSE: 2416.85 mGy.cm HISTORY: Trauma. Pain. fall TECHNIQUE: Multiaxial CT images of the cervical spine were performed and reformatted in the sagittal and coronal plane without the use of contrast. A dose lowering technique was utilized adhering to th e principles of ALARA. COMPARISON: None. FINDINGS: Moderate generalized degenerative disc changes throughout. Vertebral body stature is normal . No evidence for compression deformity. IMPRESSION: Degenerative change. No acute process. ACT 112: Negative or not required by law. The above report was generated using voice recognition software. It may contain grammatical, syntax or spelling errors. Electronically signed by: Romaine Fine M.D. 11/19/2019 4:23 PM
--- NOTE | 2019-11-19 16:27 | CT Scan Report ---
CT lumbar spine wo con CT DOSE: HISTORY: Trauma. Pain. s/p fall TECHNIQUE: Multiaxial CT images of the lumbar spine were performed and reformatted in the sagittal an d coronal plane without the use of contrast. A dose lowering technique was utilized adhering to the principles of ALARA. COMPARISON: None. FINDINGS: 30% compression deformity superior endplate L1. No evidence for posterior displacement of t he vertebral body. No associated soft tissue mass. Generalized osteoporosis. All remaining components of the lumbar region showed generalized degenerative change and osteoporosis . No additional fracture is appreciated. No major or significant bony displacement. Significant degen erative disc changes throughout the entire lumbar region. IMPRESSION: 1. 30% compression deformity superior endplate of L1. 2. This shows no evidence for posterior displacement or compromise of the spinal canal. 3. Remainder the study is remarkable for generalized degenerative disc change and osteoporosis. ACT 112: Negative or not required by law. The above report was generated using voice recognition software. It may contain grammatical, syntax or spelling errors. Electronically signed by: Romaine Fine M.D. 11/19/2019 4:26 PM
--- NOTE | 2019-11-19 16:36 | CT Scan Report ---
Study: CT bony pelvis HISTORY: Trauma. Pain. FINDINGS: Old healed fracture left pubic ring. Degenerative change of the hips bilaterally. No well-defined acute abnormality Nondisplaced cortical fracture right symphysis pubis. Immediately superior to the symphysis pubis to the right of midline is a probable posttraumatic soft tissue contusion or hematoma. This measures 3 x 2 cm. Mild surrounding parenchymal infiltrative changes present. No evidence for an acute or additional bony abnormality. IMPRESSION: 1. Nondisplaced cortical fracture right symphysis pubis. 2. Posttraumatic soft tissue contusion posterior and superior to the right symphysis pubis measuring 3 x 2 cm. 3. Old healed fracture left pubic ring Electronically signed by: Romaine Fine M.D. 11/19/2019 4:35 PM
--- NOTE | 2019-11-19 16:50 | XRay Report ---
XR chest 1V portable CLINICAL HISTORY: screening post fall trauma COMPARISON STUDY: 01/08/2019 FINDINGS: Moderate stable cardiomegaly. Prior median sternotomy. Bipolar cardiac pacemaker with leads in good position. Mildly prominent pulmonary vasculature. IMPRESSION: Pulmonary vascular congestion. ACT 112: Negative or not required by law. The above report was generated using voice recognition software. It may contain grammatical, syntax or spelling errors. Electronically signed by: Romaine Fine M.D. 11/19/2019 4:49 PM
--- NOTE | 2019-11-19 16:51 | XRay Report ---
XR clavicle 2 view LT CLINICAL HISTORY: pain post fall COMPARISON: 11/06/2016 DISCUSSION: Deformity left humeral head and neck consistent with an old healed fracture. Considerable degenerative changes of the articular surfaces. No well-defined superimposed acute proce ss. There is no evidence for soft tissue swelling. IMPRESSION: Deformity left humeral head and neck consistent with an old healed fracture. Degenerative change. No acute process. ACT 112: Negative or not required by law. The above report was generated using voice recognition software. It may contain grammatical, syntax or spelling errors. Electronically signed by: Romaine Fine M.D. 11/19/2019 4:50 PM
--- NOTE | 2019-11-19 16:52 | XRay Report ---
XR shoulder LT min 2V routine CLINICAL HISTORY: pain post fall COMPARISON: None. DISCUSSION: No acute bony abnormality. Left clavicle shows no acute process. Findings consistent with an old healed deformed fracture left humeral head and neck. No evidence for acute bony abnormality. There is no evidence for soft tissue swelling. IMPRESSION: 1. No acute bony abnormality. 2. Deformity left humeral head and neck consistent with an old healed fracture. ACT 112: Negative or not required by law. The above report was generated using voice recognition software. It may contain grammatical, syntax or spelling errors. Electronically signed by: Romaine Fine M.D. 11/19/2019 4:50 PM
[2019-11-19 18:17] LABS: Mean Corpuscular Hgb Conc 31.5 g/dL (32-36)
--- NOTE | 2019-11-19 18:19 | History & Physical Report ---
Date of Service November 19, 2019 Assessment & Plan (1) Ambulatory dysfunction: (2) Fall: (3) Closed compression fracture of L1 vertebra: (4) Closed fracture of symphysis pubis: Pt is 84 y/o M with PMH ESRD on HD on MWF schedule, CAD s/p CABG, symptomatic bradycardia s/p pacemaker, chronic anemia, hyperparathyroidism, BPH, bullous pemphigoid presented to ER with complaint of mechanical fall this morning. Denies any known LOC, dizziness, CP, SOB, palpitations. Pt complains of headache, posterior neck pain, mid back pain and pain to groin. In ER afebrile, P: 115 down to 80, R: 18, BP: 112/87, 94% on RA. No leukocytosis, H/H: 11/35, Plt: 112, no significant electrolyte abnormality CT HEAD: No acute intracranial abnormality. Age-related change. CT C-SPINE:Degenerative change. No acute process. CT L-SPINE:1. 30% compression deformity superior endplate of L1. 2. This shows no evidence for posterior displacement or compromise of the spinal canal. 3. Remainder the study is remarkable for generalized degenerative disc change and osteoporosis. CT PELVIS: 1. Nondisplaced cortical fracture right symphysis pubis. 2. Posttraumatic soft tissue contusion posterior and superior to the right symphysis pubis measuring 3 x 2 cm. 3. Old healed fracture left pubic ring LEFT SHOULDER XRAY: 1. No acute bony abnormality. 2. Deformity left humeral head and neck consistent with an old healed fracture. -In ER given Tylenol p.o. In ER was unable to get patient up to ambulate -ER spoke to Ortho-Dr. Jacinto about pelvis fracture, reports nonoperative and weightbearing as tolerated -Will give patient scheduled Tylenol, oxycodone as needed pain -Fall precautions -Ortho spine consult -PT/OT sarahal (5) ESRD on dialysis: On Sunday hemodialysis schedule Had dialysis today 11/19/2019 -Continue renal meds -Consult nephrology, patient follows with Dr. 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 Baseline Hgb ~11 Current hemoglobin at baseline (8) Ischemic cardiomyopathy: CXR: Pulmonary vascular congestion -Volume status controlled by dialysis (9) Symptomatic bradycardia: S/P pacemaker Follows with Dr. Mcwilliams -Pacemaker interrogation (10) BPH (benign prostatic hyperplasia): -Continue tamsulosin (11) Bullous pemphigoid: Follows with dermatology outpatient. Past history of needing oral prednisone -Not currently on oral steroids DVT Prophylaxis -SCDs Full Code as per discussion with pt Follows with Dr House for routine care Pt was seen and care coordinated with Dr Euceda. See addendum History of Present Illness Chief Complaint: Fall Primary Care Provider: Suly House, DO Pt is 84 y/o M with PMH ESRD on HD on MWF schedule, CAD s/p CABG, symptomatic bradycardia s/p pacemaker, chronic anemia, hyperparathyroidism, BPH, bullous pemphigoid presented to ER with complaint of fall this morning. Patient reports this morning was walking 2 AM to go to dialysis and tripped on raised piece of concrete and fell. He reports van drivers were able to get him up and take him to dialysis and patient was able to complete dialysis today. Denies any known LOC. Pt complains of headache, posterior neck pain, mid back pain and pain to groin. He reports secondary to pain he is unable to move his arms or his legs. Was able to speak with patient's on the phone who reports patient has been having progressive generalized weakness and leg weakness. Uses walker but reports having difficulty with that some days. She reports past several weeks has been unable to be walking much, only getting around in the house. He has a lift chair which helps get him out of the chair otherwise patient has difficulty getting out of chair. She reports patient has chronic bilateral shoulder bilateral wrist and knee pain and takes Percocet twice a day. also reports pt is very sleepy at baseline, however much more sleepy after dialysis. Denies recent illness, cough, SOB. Denies CP, dizziness, palpitations prior to fall. Pt reports doesn't eat or drink much at baseline. Reports still makes urine and denies dysuria, hematuria, urinary frequency or retention. Denies fever/chills, diaphoresis, N/V/D/C, vision changes, orthopnea, palpitations, cough, sore throat, choking, otalgia, rhinorrhea, abdominal pain, paresthesias, increased extremity edema, rashes. Allergies Allergy/AdvReac Type Severity Reaction Status Date / Time No Known Drug Allergies Allergy Unknown . 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) HTN (hypertension) (Chronic) Pacemaker (Chronic) Renal calculi (Chronic) Surgical History Aortic valve replaced (Chronic) H/O inguinal hernia repair (Chronic) History of cataract surgery (Chronic) History of tonsillectomy (Chronic) Hx of CABG (Chronic) Family History Other Coronary heart disease Hypertension Stroke Social History Preferred Language: Malay Communication Ability: Effective Job Tracer Required: No Beliefs That Will Affect Care: Baptist Baptist Beliefs: Jehovah Witness, no blood transfusions marital status: Current Living Situation: Spouse current occupational status: retired Other Information That Helps Us Care for You: No Feels Safe at Home: Yes Safety Concerns: Feels Safe At This Time Smoking Status: Never smoker Do You Dip or Chew Tobacco: No ; Second Hand Exposure: No ; Tobacco Cessation Education Requested by Patient: No Hx Alcohol Use: No Hx Substance Use: No Review of Systems Review of Systems: All systems reviewed & are unremarkable except as noted in HPI & below Physical Exam Physical Exam: General: no distress, obese Head: normocephalic, atraumatic Eyes: PERRL, EOM's intact, conjunctiva non-injected, anicteric ENT: normal inspection external ears, nose, mucous membranes moist Neck: supple, trachea midline, no spinous process tenderness to palpation Lungs: no respiratory distress, coarse breath sounds CV: RRR, no murmur,1+ pretibial edema; pacer palpable to chest wall Abd: normal BS, soft, protuberant secondary to adipose tissue, non-tender Ext: no cyanosis, BLE with discoloration; Pt unable to actively move his bilateral arms or legs. Passive ROM of left arm reproduces pain to left shoulder. +tenderness to palpation anterior left shoulder without erythema or edema, remaining L arm, elbow and wrist and hand non-tender to palpation. Passive ROM of left arm without reported pain to shoulder, elbow, wrist or hand. Passive ROM of LLE with pain reproduced to groin with flexion of left hip. Passive ROM of RLE without reported pain. distal pulses palpable, sensation to light touch intact Bilateral fingers with ulnar deviation. Neuro: Drowsy but awakens to voice. Alert, oriented to person, place, year, unsure of day of week and reports month is october, no focal deficits noted, normal affect Skin: warm, dry Results & Data Results & Data ([facility]) Vital Signs (Past 12 Hours) Vital Signs Temp Pulse Pulse Resp BP BP Pulse Ox 11/19/19 18:00 79 24 11/19/19 17:31 79 22 11/19/19 17:30 80 19 96/48 L 96 11/19/19 17:00 78 21 92/49 L 95 11/19/19 16:42 80 20 114/49 L 94 11/19/19 16:31 77 23 94 11/19/19 16:30 79 21 114/49 L 11/19/19 16:27 81 11/19/19 15:47 85 23 94 11/19/19 15:46 85 21 129/69 95 11/19/19 15:30 86 23 95 11/19/19 15:00 86 24 91 11/19/19 14:58 36.3 C L 97 H 24 112/87 93 11/19/19 14:54 105 H 112/87 92 Laboratory Results Short CBC 11/19/19 Range/Units 18:00 WBC 9.85 (4.8-10.8) K/uL Hgb 11.2 L (14.0-18.0) g/dL Hct 35.6 L (42-52) % Plt Count 112 L (130-400) K/uL BMP 11/19/19 18:00 Sodium 139 Potassium 4.2 Chloride 104 Carbon Dioxide 28 BUN 14 Creatinine 3.23 H Glucose 112 H Calcium 8.[address] HEAD: Impression: No acute intracranial abnormality. Age-related change. CT C-SPINE: IMPRESSION: Degenerative change. No acute process. CT L-SPINE: IMPRESSION: 1. 30% compression deformity superior endplate of L1. 2. This shows no evidence for posterior displacement or compromise of the spinal canal. 3. Remainder the study is remarkable for generalized degenerative disc change and osteoporosis. CT PELVIS: IMPRESSION: 1. Nondisplaced cortical fracture right symphysis pubis. 2. Posttraumatic soft tissue contusion posterior and superior to the right symphysis pubis measuring 3 x 2 cm. 3. Old healed fracture left pubic ring LEFT SHOULDER XRAY: IMPRESSION: 1. No acute bony abnormality. 2. Deformity left humeral head and neck consistent with an old healed fracture. LEFT CLAVICLE XRAY: IMPRESSION: Deformity left humeral head and neck consistent with an old healed fracture. Degenerative change. No acute process. CXR: IMPRESSION: Pulmonary vascular congestion. Code Status & VTE Plan VTE Prophylaxis Plan VTE Prophylaxis will be ordered: Yes Supervising Physician Co-Signing Physician Notes Pt seen and examined by vt, care coordinated with Jovita Fay PA-C. Pt is an 84 y/o M with ESRD on HD (M/W/F), CAD s/p CABG, symptomatic bradycardia s/p pacemaker, chronic anemia, hyperparathyroidism, BPH, bullous pemphigoid who presented to ER after mechanical fall this morning. Pt denies any chest pain, shortness of breath, dizziness, lightheadedness. Says that he's using a walker and tripped. He then continued on and had HD today (11/19/2019). In ED he was found to have pelvic fx and compression fx of L1. Pt has had pain in his wrist, shoulder, knee and back prior to his fall. He has been feeling week. In addition pt is Congregational and declines blood products, this was c onfirmed by e at the bedside. Pt is obese, lying in bed, in NAD. Very hard of hearing and uses hearing aids. Breathing comfortably on room air. CTAB, with only very mild bibasilar crackles. Heart sounds regular. Abdomen soft, obese, nontender to palpation. Extremities warm and well perfused, no sensory loss noted. Moves extremities spontaneously, but complains of pain with any movements,a lot of his discomfort pt confirms is chronic. New pain is in his groin with LE movement. Pt is alert and oriented and answers questions appropriately. EKG in ED showed AV dual paced rhythm w/ prolonged AV conduction. Will admit to tele and order pacemaker interrogation. Hgb at baseline, hx of anemia on ESRD. Will order UA and ucltx. Nephrology consulted for HD management. Ortho consulted for pelvix fx and compression fx of L1. MD Lakisha (1) Closed fracture of symphysis pubis Encounter type: initial encounter Laterality: right Qualified Code(s): S32.591A - Other specified fracture of right pubis, initial encounter for closed fracture (2) Closed compression fracture of L1 vertebra Encounter type: initial encounter Qualified Code(s): S32.010A - Wedge compression fracture of first lumbar vertebra, initial encounter for closed fracture (3) Fall Encounter type: initial encounter Qualified Code(s): W19.XXXA - Unspecified fall, initial encounter
[2019-11-19 18:32] LABS: INR 1.3 (0.9-1.1); Prothrombin Time 13.2 Seconds (9.0-12.0)
[2019-11-19 18:35] LABS: Hematocrit (blood only) 35.6 % (42-52); Hemoglobin 11.2 g/dL (14.0-18.0); Mean Corpuscular Hemoglobin 24.4 pg (25-34); Mean Corpuscular Volume 77.6 fL (80-100); RDW Standard Deviation 44.8 fL (36.4-46.3); Red Blood Count 4.59 M/uL (4.7-6.1); White Blood Count 9.85 K/uL (4.8-10.8)
[2019-11-19 18:36] LABS: BUN Creatinine Ratio 4.3 (10-20); Calcium 8.4 mg/dl (8.5-10.1); Creatinine Clr Calc Pharmacy 18.4 ml/min; Est GFR (African American) 19.2; Est GFR (Non-African American) 16.6; Potassium 4.2 mmol/L (3.5-5.1)
[2019-11-19 18:38] LABS: Platelet Count 112 K/uL (130-400)
[2019-11-19 18:39] LABS: Basophils # (auto) 0.01 K/uL (0-0.2); Basophils % (auto) 0.1 %; Eosinophils # (auto) 0.08 K/uL (0-0.5); Eosinophils % (auto) 0.8 %; Immature Granulocytes # (auto) 0.02 K/uL (0.00-0.02); Immature Granulocytes % (auto) 0.2 %; Lymphocytes # (auto) 0.59 K/uL (1.2-3.4); Monocytes # (auto) 0.53 K/uL (0.11-0.59); Monocytes % (auto) 5.4 %; Neutrophils # (auto) 8.62 K/uL (1.4-6.5); Neutrophils % (auto) 87.5 %; Platelet Estimate Decreased (Normal)
[2019-11-19] MEDS ORDERED: POLYETHYLENE (MIRALAX) 17 GM PACK PO PRN (19:38)
[2019-11-19] MEDS ORDERED: NITROGLYCERIN SL 0.4 MG/TAB TAB SL PRN (19:38)
[2019-11-19] MEDS ORDERED: ACETAMINOPHEN 325 MG TAB PO PRN (19:38)
[2019-11-19] MEDS: OXYCODONE HCL IR 5 MG TAB (IMMEDIATE RELEASE) PO PRN (20:16)
[2019-11-19] MEDS: ACETAMINOPHEN 325 MG TAB PO SCH (20:16)
[2019-11-19] MEDS: TAMSULOSIN HCL 0.4 MG CAP PO SCH (20:17)
[2019-11-20] MEDS: OXYCODONE HCL IR 5 MG TAB (IMMEDIATE RELEASE) PO PRN ×3 (01:44→15:30)
[2019-11-20] MEDS: ACETAMINOPHEN 325 MG TAB PO SCH ×3 (03:55→20:07)
[2019-11-20 06:11] LABS: Mean Corpuscular Hgb Conc 30.5 g/dL (32-36)
[2019-11-20 06:34] LABS: Hematocrit (blood only) 33.8 % (42-52); Hemoglobin 10.3 g/dL (14.0-18.0); Mean Corpuscular Hemoglobin 23.8 pg (25-34); Mean Corpuscular Volume 78.2 fL (80-100); RDW Coefficient of Variation 15.8 % (11.5-14.5); RDW Standard Deviation 45.4 fL (36.4-46.3); Red Blood Count 4.32 M/uL (4.7-6.1); White Blood Count 7.19 K/uL (4.8-10.8)
[2019-11-20 06:35] LABS: Platelet Count 100 K/uL (130-400); Platelet Estimate Decreased (Normal)
[2019-11-20 06:41] LABS: BUN Creatinine Ratio 4.9 (10-20); Calcium 8.4 mg/dl (8.5-10.1); Creatinine Clr Calc Pharmacy 14.4 ml/min; Est GFR (African American) 14.6; Est GFR (Non-African American) 12.6; Potassium 4.3 mmol/L (3.5-5.1)
[2019-11-20 06:42] LABS: Phosphorus 2.9 mg/dl (2.5-4.9)
--- NOTE | 2019-11-20 08:18 | Electrocardiogram Report ---
Test Reason : Blood Pressure : / mmHG Vent. Rate : 116 BPM Atrial Rate : 116 BPM P-R Int : 218 ms QRS Dur : 172 ms QT Int : 416 ms P-R-T Axes : 061 -80 081 degrees QTc Int : 578 ms AV dual-paced rhythm with prolonged AV conduction Abnormal ECG When compared with ECG of 08-JAN-2019 14:36, Vent. rate has increased BY 29 BPM Confirmed by Lalo Parra ([id number]) on 11/20/2019 8:18:15 AM Referred By: Confirmed By:Lalo Parra
[2019-11-20] MEDS: CALCIUM ACETATE 667 MG CAP/TAB PO SCH ×4 (08:38→20:08)
[2019-11-20] MEDS: ATORVASTATIN 40 MG TAB PO SCH (08:38)
[2019-11-20] MEDS: ASPIRIN 81 MG ECTAB PO SCH (08:38)
--- NOTE | 2019-11-20 11:43 | Nephrology Consultation ---
Date of Consultation November 20, 2019 Assessment & Plan (1) ESRD on dialysis: Would continue his routine outpatient medications. We will plan on hemodialysis tomorrow using his regular parameters. While here, it may be a good opportunity for us to do an upper GI series. I would also check a stool for occult blood. If either show any suggestions of GI bleeding we might have GI see him for an endoscopy. It may be that some of his GI symptoms are related to the use of Percocet. His hypochromic microcytic smear suggest iron deficiency but that is not supported by his recent ferritin of 1400 and transferrin saturation of 33%. (2) Fall: (3) Closed fracture of symphysis pubis: (4) Closed compression fracture of L1 vertebra: (5) CHF (congestive heart failure): (6) Pacemaker: History of Present Illness Reason for Consultation: ESRD History of Present Illness Mr. Poon is an 84-year-old gentleman that I have followed for the past 2 years. He has end-stage renal disease and has been on maintenance dialysis since approximately 2011. The etiology of his end-stage renal disease is likely mixed. He did have a history of a staghorn calculus contributing to atrophy of the left kidney. However, he had no history of recognized upper urinary tract infections involving the left kidney. Additionally, there has been no no evidence of renovascular disease despite his history of cardiovascular disease. Additionally, he has had a history of hydroureteronephrosis involving the right kidney. Small stones have been recognized as being in the right kidney. How ever, he had no staghorn calculus on the right. He presented to this hospital in October 2011. At that time, his renal function was minimal and he was started on maintenance dialysis. 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 Call. Since on dialysis, he is done relatively well. Unfortunately, he has had several falls in the past that resulted in fractures of both his ribs as well as his left humerus. He is recovered from those but does have chronic pain in his shoulders particularly on the left. In an effort to get a reasonable amount of sleep at night he does use of Percocet 5/325 prior to going to bed. He will occasionally take 1 in the morning as well. He continues to dialyze 3 times a week at [facility] in [place]. His dialysis treatments have been uncomplicated. He dialyzes using a 180 dialyzer for 3 hours and 45 minutes. He does get a heparin load of 3000 units and gets an additional 1000 units/h. He dialyzes with a blood flow rate of 450 mL's per minute and a dialysate flow rate of 800. His dry weight is approximately 94.6 kg. His dialysate is a 2 potassium 2 calcium bath with a sodium of 140 and bicarbonate of about 28. Dialysis parameters have been reasonably good. He has not been chronically anemic. His hemoglobin is 11.2 when last checked. His serum ferritin is elevated at 1400 and his transferrin saturation is 33%. His phosphate is well controlled at 4.5 and his parathyroid hormone level is controlled at 241. His peripheral smear, however, has been hypochromic and microcytic despite lack of any other evidence of iron deficiency. His dialysis associated medications include calcitriol 0.75 mg with each dialysis treatment and Micera 75 units every 2 weeks. Other home medications include an 81 mg aspirin a day, atorvastatin 40 mg at bedtime, calcium acetate 667 mg 2 with each meal, as needed nitroglycerin, Percocet 5/325 once or twice a day, tamsulosin 0.4 mg each evening and a renal vitamin which he takes on a daily basis. Associated medical conditions include a longstanding history of hypertension although his blood pressure has been well controlled on dialysis. Additionally, he has a history of ASCVD with significant coronary disease. He had coronary artery bypass surgery x4 done in 2007. He also had an aortic valve replacement at that time with a bioprosthetic valve. 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 He is followed by Dr. Bjorn Wheat and Dr. Charly Kunz for his heart disease and pacemaker. He does have a history of atrial fibrillation although he has been in a regular rhythm of late. His only anticoagulation is with his 81 mg aspirin as well as the heparin that he gets with his dialysis treatments. Recently, he is complained of some intermittent loss of appetite and nausea without associated abdominal pain, hematemesis or melena. We have tried to schedule him for an upper GI series although that has been canceled during the course of the past month because of the coronavirus pandemic. He has not tried to reschedule the procedure. He is now admitted after having suffered a fall yesterday morning on his way to his dialysis treatment. He apparently tripped on a curb and fell. He was helped up. He did have some significant pain in his groin and pelvic area particularly on the right side. Although initially he felt that he was doing well and had good range of motion of his hip without significant pain, his pain increased and for that reason he came to the emergency room. In the emergency room, x-rays revealed pelvic fracture which was nondisplaced. Additionally, he had a 30% compression fracture of uncertain age involving L1. He says that he is comfortable at the current time he has already had a session with physical therapy. With the exception of the above, his review of systems is unremarkable. Allergies Allergy/AdvReac Type Severity Reaction Status Date / Time No Known Drug Allergies Allergy Unknown . 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) ASCVD (arteriosclerotic cardiovascular disease) (Chronic) BPH (benign prostatic hyperplasia) (Chronic) Bullous pemphigoid (Chronic) Dyslipidemia (Chronic) ESRD on dialysis (Chronic) HTN (hypertension) (Chronic) Pacemaker (Chronic) Renal calculi (Chronic) Surgical History Aortic valve replaced (Chronic) H/O inguinal hernia repair (Chronic) History of cataract surgery (Chronic) History of tonsillectomy (Chronic) Hx of CABG (Chronic) Family History Other Coronary heart disease Hypertension Stroke Social History Preferred Language: Luxembourgish Communication Ability: Effective 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 Poon appears as a somewhat chronically ill elderly gentleman who is in no distress. He is awake, alert and oriented and, at rest, did not appear to be in any distress. His blood pressure this morning was 121/69 with a pulse of 93 and regular. His respiratory rate is 20 and his pulse ox 97% on room air. He is afebrile (36.6). His skin shows normal skin turgor. There is no rash other than changes of mild venous stasis dermatitis on his distal lower extremities. He has scars from prior surgical procedures including a midsternal scar from coronary artery bypass surgery and a scar beneath the distal right clavicle from his pacemaker. There was a left upper arm AV fistula with a scar in the left antecubital fossa from the creation of his fistula. He has multiple dialysis needle track villalobos over the fistula. He has a scar from a left inguinal herniorrhaphy. Lymphatics show no palpable adenopathy. His head is normal. Eyes are grossly normal. The ocular fundi were not examined. Ears, nose, mouth and throat are unremarkable although he is wearing hearing aids bilaterally. I did not examine the ocular fundi. He does have multiple missing teeth as well. His oral mucous membranes are moist. His neck is supple. There is no jugular venous distention, carotid bruit or thyromegaly. His chest is clear to auscultation. He has no wheezes, rales or rhonchi. Cardiac exam shows a regular rhythm. S1 and S2 are normal. He has normal bioprosthetic valve sounds. I do not hear a murmur or gallop. His abdomen is somewhat obese but nontender. He has no organomegaly or mass. He has no abdominal tenderness. Genital and rectal exams were not done. Extremities show no cyanosis or clubbing. He has no peripheral edema. His AV fistula functions in his left upper arm. He has some minimal discomfort on external rotation of his right hip but not with internal rotation and not with significant flexion of the hip. Peripheral pulses are diminished but present. His neurologic exam shows him to be alert and oriented. He has no lateralizing changes. His deep tendon reflexes are equal and symmetrical although ankle jerks are somewhat diminished. Results & Data Vital Signs (Past 12 Hours) Vital Signs Temp Pulse Resp BP Pulse Ox 11/20/19 07:25 36.6 C 93 H 20 121/69 97 11/20/19 03:26 36.8 C 70 18 136/72 92 Diagnostic Findings Laboratory Results - last 24 hr 11/19/19 11/19/19 11/19/19 18:00 18:00 18:00 WBC 9.85 RBC 4.59 L Hgb 11.2 L Hct 35.6 L MCV 77.6 L MCH 24.4 L MCHC 31.5 L RDW Std Deviation 44.8 RDW Coeff of Gill 16.0 H Plt Count 112 L Immature Gran % (Auto) 0.2 Neut % (Auto) 87.5 Lymph % (Auto) 6.0 [place] % (Auto) 5.4 Eos % (Auto) 0.8 Baso % (Auto) 0.1 Immature Gran # (Auto) 0.02 Neut # (Auto) 8.62 H Lymph # (Auto) 0.59 L [place] # (Auto) 0.53 Eos # (Auto) 0.08 Baso # (Auto) 0.01 Platelet Estimate Decreased L PT 13.2 H INR 1.3 H Sodium 139 Potassium 4.2 Chloride 104 Carbon Dioxide 28 Anion Gap 7.0 BUN 14 Creatinine 3.23 H Est Cr Clr Drug Dosing 18.4 Est GFR ( Amer) 19.2 Est GFR (Non-Af Amer) 16.6 BUN/Creatinine Ratio 4.3 L Glucose 112 H Calcium 8.4 L Phosphorus Magnesium 2.0 11/20/19 11/20/19 05:33 05:33 WBC 7.19 RBC 4.32 L Hgb 10.3 L Hct 33.8 L MCV 78.2 L MCH 23.8 L MCHC 30.5 L RDW Std Deviation 45.4 RDW Coeff of Gill 15.8 H Plt Count 100 L Immature Gran % (Auto) Neut % (Auto) Lymph % (Auto) [place] % (Auto) Eos % (Auto) Baso % (Auto) Immature Gran # (Auto) Neut # (Auto) Lymph # (Auto) [place] # (Auto) Eos # (Auto) Baso # (Auto) Platelet Estimate Decreased L PT INR Sodium 137 Potassium 4.3 Chloride 104 Carbon Dioxide 27 Anion Gap 6.0 BUN 20 H Creatinine 4.05 H D Est Cr Clr Drug Dosing 14.4 Est GFR ( Amer) 14.6 Est GFR (Non-Af Amer) 12.6 BUN/Creatinine Ratio 4.9 L Glucose 101 H Calcium 8.4 L Phosphorus 2.9 Magnesium 2.0 PG Care Time/CCT Total # of Minutes Spent Total Time Spent with Patient: Total time spent is greater than 50% in coordination of care (as documented) at patient's floor/unit and/or counseling patient: 60 min. Coding Level of Care Code 40015 Initial Inpt Care Lvl 3 Diagnoses ESRD on dialysis N18.6; Z99.2 Fall W19.XXXA Encounter type: initial encounter Closed fracture of symphysis pubis S32.591A Encounter type: initial encounter Laterality: right Closed compression fracture of L1 vertebra S32.010A Encounter type: initial encounter CHF (congestive heart failure) I50.9 Heart failure chronicity: chronic Heart failure type: unspecified Pacemaker Z95.0 (1) Fall Encounter type: initial encounter Qualified Code(s): W19.XXXA - Unspecified fall, initial encounter (2) Closed fracture of symphysis pubis Encounter type: initial encounter Laterality: right Qualified Code(s): S32.591A - Other specified fracture of right pubis, initial encounter for closed fracture (3) Closed compression fracture of L1 vertebra Encounter type: initial encounter Qualified Code(s): S32.010A - Wedge compression fracture of first lumbar vertebra, initial encounter for closed fracture (4) CHF (congestive heart failure) Heart failure chronicity: chronic Heart failure type: unspecified Qualified Code(s): I50.9 - Heart failure, unspecified
--- NOTE | 2019-11-20 12:53 | Consultation ---
Date of Consultation November 20, 2019 Assessment & Plan (1) Closed compression fracture of L1 vertebra: Multiple options have been reviewed with the patient in regards to his acute L1 compression fracture status post fall yesterday. These options include pain management/conservative treatment, TLSO bracing, surgical intervention in the form of kyphoplasty. Patient is not interested in pursuing bracing or surgical intervention. He would like to pursue conservative treatment in the form of pain control and again is quite anxious to return home to his . Would recommend no lifting over 5 pounds. We will follow him up in the office in roughly 2 weeks. [phone] for appointment thank you for this consult Supervising Physician Co-Signing Physician Notes Dr. Hossein Mcgee History of Present Illness This is a very pleasant 84-year-old gentleman that we are seeing in consultation regarding an acute L1 compression fracture. Patient was on his way to dialysis yesterday when he was walking on the sidewalk using his walker and tripped on uneven cement. This resulted in a fall. He did hit his head. He is unsure if he lost consciousness. He has complains of pain along his left shoulder and elbow, lower back, right hip. Patient reports his current pain as a 10 out of 10 this morning. Patient has multiple medical comorbidities. He is quite anxious to return home with his . Attending Physician: El Cardenas MD Allergies Allergy/AdvReac Type Severity Reaction Status Date / Time No Known Drug Allergies Allergy Unknown . 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) ASCVD (arteriosclerotic cardiovascular disease) (Chronic) BPH (benign prostatic hyperplasia) (Chronic) Bullous pemphigoid (Chronic) Dyslipidemia (Chronic) ESRD on dialysis (Chronic) HTN (hypertension) (Chronic) Pacemaker (Chronic) Renal calculi (Chronic) Surgical History Aortic valve replaced (Chronic) H/O inguinal hernia repair (Chronic) History of cataract surgery (Chronic) History of tonsillectomy (Chronic) Hx of CABG (Chronic) Family History Other Coronary heart disease Hypertension Stroke Social History Preferred Language: Kazakh Communication Ability: Effective Retoucher Photoengraving Required: No Beliefs That Will Affect Care: Scientology Scientology Beliefs: Jehovah Witness, no blood transfusions marital status: Current Living Situation: Spouse current occupational status: retired Other Information That Helps Us Care for You: No Feels Safe at Home: Yes Safety Concerns: Feels Safe At This Time Smoking Status: Never smoker Do You Dip or Chew Tobacco: No ; Second Hand Exposure: No ; Tobacco Cessation Education Requested by Patient: No Hx Alcohol Use: No Hx Substance Use: No Review of Systems 2 Review of Systems: All systems reviewed & are unremarkable except as noted in HPI & below Physical Exam Physical Exam: Patient is seen in room 286 bed 1. He is alert and oriented x3. He is quite uncomfortable. Exam is limited due to his pain. He is unable to sit forward so I may examine his thoracolumbar spine. He has positive logrolling bilaterally. Strength is 5 5 bilateral EHL, dorsiflexion, plantarflexion, quadriceps, hamstrings. Constitutional: + acute distress Eyes: normal visual sheppard by confrontation ENMT: external ear and nose normal, oropharynx normal Neck: normal visual inspection Respiratory: normal respiratory effort Cardiovascular: Extremities: normal capillary refill Chest (Breasts): Chest: normal inspection of chest Gastrointestinal (Abdomen): Inspection/Auscultation: abdomen normal to inspection Musculoskeletal: Extremities: strength 5/5 throughout Skin: no rashes, warm and dry Neurologic: moves all extremities Psychiatric: A+Ox3, euthymic affect Results & Data ([facility]) Vital Signs (Past 12 Hours) Vital Signs Temp Pulse Resp BP Pulse Ox 11/20/19 12:02 36.7 C 98 H 20 132/80 93 11/20/19 07:25 36.6 C 93 H 20 121/69 97 11/20/19 03:26 36.8 C 70 18 136/[address] Scan Report Patient: NICK NELSON Date: 11/19/19 MR#: [id number]: [address] Acct ID:[id number]: Date: 1935[place] [facility] [place] [address] Age: 84Location: ED Sex: M Room/Bed: Att Phy:Diagnosis: FALL Meaghan Phy: [facility], DOService Date: 11/19/19 Fam Phy:Interpreting Phy: Romaine Fine MD Admit Phy: Ordering Phy: Alejandro Quevedo MD cc: ~ CT lumbar spine wo con CT DOSE: HISTORY: Trauma. Pain. s/p fall TECHNIQUE: Multiaxial CT images of the lumbar spine were performed and reformatted in the sagittal and coronal plane without the use of contrast. A dose lowering technique was utilized adhering to the principles of ALARA. COMPARISON: None. FINDINGS: 30% compression deformity superior endplate L1. No evidence for posterior displacement of the vertebral body. No associated soft tissue mass. Generalized osteoporosis. All remaining components of the lumbar region showed generalized degenerative change and osteoporosis. No additional fracture is appreciated. No major or significant bony displacement. Significant degenerative disc changes throughout the entire lumbar region. IMPRESSION: 1. 30% compression deformity superior endplate of L1. 2. This shows no evidence for posterior displacement or compromise of the spinal canal. 3. Remainder the study is remarkable for generalized degenerative disc change and osteoporosis. ACT 112: Negative or not required by law. The above report was generated using voice recognition software. It may contain grammatical, syntax or spelling errors. Electronically signed by: Romaine Fine M.D. 11/19/2019 4:26 PM Dictated: 11/19/19 [address] [place], [place] [phone] CT Scan Report Patient: NICK NELSON Date: 11/19/19 MR#: [id number]: [address] Acct ID:[id number]: Date: 4City Zip: [place] [address] Age: 84Location: ED Sex: M Room/Bed: Att Phy:Diagnosis: FALL Meaghan Phy: [facility], DOService Date: 11/19/19 Fam Phy:Interpreting Phy: Romaine Fine MD Admit Phy: Ordering Phy: Alejandro Quevedo MD cc: ~ Study: CT bony pelvis HISTORY: Trauma. Pain. FINDINGS: Old healed fracture left pubic ring. Degenerative change of the hips bilaterally. No well-defined acute abnormality Nondisplaced cortical fracture right symphysis pubis. Immediately superior to the symphysis pubis to the right of midline is a probable posttraumatic soft tissue contusion or hematoma. This measures 3 x 2 cm. Mild surrounding parenchymal infiltrative changes present. No evidence for an acute or additional bony abnormality. IMPRESSION: 1. Nondisplaced cortical fracture right symphysis pubis. 2. Posttraumatic soft tissue contusion posterior and superior to the right symphysis pubis measuring 3 x 2 cm. 3. Old healed fracture left pubic ring Electronically signed by: Romaine Fine M.D. 11/19/2019 4:35 PM Dictated: 11/19/19 163 Transcribed: 11/19/19 163 (1) Closed compression fracture of L1 vertebra Encounter type: initial encounter Qualified Code(s): S32.010A - Wedge juan f eduarda fracture of first lumbar vertebra, initial encounter for closed fracture
[2019-11-20] MEDS ORDERED: TRAMADOL HCL 50 MG TABLET PO PRN (17:57)
--- NOTE | 2019-11-20 18:08 | Hospitalist Progress Note ---
Date of Service November 20, 2019 Assessment & Plan (1) Status post fall: 84 year old male with history of ESRD, CAD/CABG, Bradycardia s/p PM, other problems noted below presenting with back pain, weakness after mechanical fall. (1) Ambulatory dysfunction: (2) Fall: (3) Closed compression fracture of L1 vertebra: (4) Closed fracture of symphysis pubis: Pt is 84 y/o M with PMH ESRD on HD on MWF schedule, CAD s/p CABG, symptomatic bradycardia s/p pacemaker, chronic anemia, hyperparathyroidism, BPH, bullous pemphigoid presented to ER with complaint of mechanical fall this morning. Denies any known LOC, dizziness, CP, SOB, palpitations. Pt complains of headache, posterior neck pain, mid back pain and pain to groin. In ER afebrile, P: 115 down to 80, R: 18, BP: 112/87, 94% on RA. No leukocytosis, H/H: 11/35, Plt: 112, no significant electrolyte abnormality CT HEAD: No acute intracranial abnormality. Age-related change. CT C-SPINE:Degenerative change. No acute process. CT L-SPINE:1. 30% compression deformity superior endplate of L1. 2. This shows no evidence for posterior displacement or compromise of the spinal canal. 3. Remainder the study is remarkable for generalized degenerative disc change and osteoporosis. CT PELVIS: 1. Nondisplaced cortical fracture right symphysis pubis. 2. Posttraumatic soft tissue contusion posterior and superior to the right symphysis pubis measuring 3 x 2 cm. 3. Old healed fracture left pubic ring LEFT SHOULDER XRAY: 1. No acute bony abnormality. 2. Deformity left humeral head and neck consistent with an old healed fracture. - Ortho spine: no surgical intervention at this time Gen Ortho: awaiting recommendations - Oxycodone increased to q6h Tramadol q12h ordered Tylenol ordered q8h - PT/OT recommending SNF rifle case repairer on board (5) ESRD on dialysis: On Sunday hemodialysis schedule - for HD tomorrow appreciate Dr. Jj's recommendations - patient may not able to tolerate Upper GI series- required 2 person assist to stand with PT will check FOBT (6) ASCVD (arteriosclerotic cardiovascular disease): S/P CABG -Denies chest pain -Continue aspirin, statin (7) 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: Chronic anemia. Baseline Hgb ~11 Current hemoglobin at baseline (8) Ischemic cardiomyopathy: CXR: Pulmonary vascular congestion -Volume status controlled by dialysis (9) Symptomatic bradycardia: S/P pacemaker Follows with Dr. Mcwilliams -Pacemaker interrogation (10) BPH (benign prostatic hyperplasia): -Continue tamsulosin (11) Bullous pemphigoid: Follows with dermatology outpatient. Past history of needing oral prednisone -Not currently on oral steroids DVT Prophylaxis -SCDs anticipate d/c to SNF when accepted Admission and Anticipated Discharge Date Admission Date: November 19, 2019 Subjective ff up for compression fracture L1, symphysis pubis fracture, s/p fall seen resting in bed, not in distress alert, oriented x 3 reports pain on his lower back- severe, not radiating to his legs denies headache, dizziness, nausea/vomiting, focal neuro symptoms no chest pain, dyspnea, palpitations no other symptoms Review of Systems Review of Systems: All systems reviewed & are unremarkable except as noted in HPI & below Physical Exam Physical Exam: General- oriented x 3, not in distress, speaks in sentences with no effort or accessory muscle use Head- atraumatic Eyes- PERRL, EOMI, anicteric ENT- oropharynx clear Neck- supple, no JVD, no adenopathy, no thyromegaly; carotids +2/2, no bruits appreciated Lungs- clear to auscultation bilaterally, no rales/wheezes Heart- normal rate, regular rhythm; no murmur, no gallop, no rub appreciated Abdomen- normal bowel sounds, nondistended, soft, nontender, no masses or hepatosplenomegaly Extremities- no pretibial edema, no calf tenderness; peripheral pulses intact Back- no edema/erythema/hematoma Neuro- alert, oriented x 3; CN 2-12 grossly intact; motor 5/5 bilaterally;sensation 100% on all extremities; no other gross focal neurologic deficits Skin- warm & dry Results & Data Results & Data ([facility]) Vital Signs (Past 12 Hours) Vital Signs Temp Pulse Resp BP Pulse Ox 11/20/19 15:38 36.7 C 75 18 120/71 92 11/20/19 12:02 36.7 C 98 H 20 132/80 93 11/20/19 07:25 36.6 C 93 H 20 121/69 97 Laboratory Results Laboratory Results - last 24 hr 11/19/19 11/19/19 11/19/19 18:00 18:00 18:00 WBC 9.85 RBC 4.59 L Hgb 11.2 L Hct 35.6 L MCV 77.6 L MCH 24.4 L MCHC 31.5 L RDW Std Deviation 44.8 RDW Coeff of Gill 16.0 H Plt Count 112 L Immature Gran % (Auto) 0.2 Neut % (Auto) 87.5 Lymph % (Auto) 6.0 [place] % (Auto) 5.4 Eos % (Auto) 0.8 Baso % (Auto) 0.1 Immature Gran # (Auto) 0.02 Neut # (Auto) 8.62 H Lymph # (Auto) 0.59 L [place] # (Auto) 0.53 Eos # (Auto) 0.08 Baso # (Auto) 0.01 Platelet Estimate Decreased L PT 13.2 H INR 1.3 H Sodium 139 Potassium 4.2 Chloride 104 Carbon Dioxide 28 Anion Gap 7.0 BUN 14 Creatinine 3.23 H Est Cr Clr Drug Dosing 18.4 Est GFR ( Amer) 19.2 Est GFR (Non-Af Amer) 16.6 BUN/Creatinine Ratio 4.3 L Glucose 112 H Calcium 8.4 L Phosphorus Magnesium 2.0 11/20/19 11/20/19 05:33 05:33 WBC 7.19 RBC 4.32 L Hgb 10.3 L Hct 33.8 L MCV 78.2 L MCH 23.8 L MCHC 30.5 L RDW Std Deviation 45.4 RDW Coeff of Gill 15.8 H Plt Count 100 L Immature Gran % (Auto) Neut % (Auto) Lymph % (Auto) [place] % (Auto) Eos % (Auto) Baso % (Auto) Immature Gran # (Auto) Neut # (Auto) Lymph # (Auto) [place] # (Auto) Eos # (Auto) Baso # (Auto) Platelet Estimate Decreased L PT INR Sodium 137 Potassium 4.3 Chloride 104 Carbon Dioxide 27 Anion Gap 6.0 BUN 20 H Creatinine 4.05 H D Est Cr Clr Drug Dosing 14.4 Est GFR ( Amer) 14.6 Est GFR (Non-Af Amer) 12.6 BUN/Creatinine Ratio 4.9 L Glucose 101 H Calcium 8.4 L Phosphorus 2.9 Magnesium 2.0
[2019-11-20] MEDS: TAMSULOSIN HCL 0.4 MG CAP PO SCH (20:07)
[2019-11-21] MEDS: ACETAMINOPHEN 325 MG TAB PO SCH ×3 (03:25→21:10)
[2019-11-21] MEDS: OXYCODONE HCL IR 5 MG TAB (IMMEDIATE RELEASE) PO PRN ×2 (03:48→11:07)
[2019-11-21] MEDS ORDERED: SODIUM CHLORIDE 0.9% 1000ML 1,000 ML IV PRN (07:00)
[2019-11-21] MEDS ORDERED: EPOETIN ALFA 10,000 UNITS/ML VIAL IV ONE (07:00)
[2019-11-21] MEDS ORDERED: HEPARIN SOD (PORCINE) 1000 UNIT/ML 10 ML VIAL IV ONE (07:00)
[2019-11-21] MEDS: HEPARIN SOD (PORCINE) 1000 UNIT/ML 10 ML VIAL IV SCH ×3 (10:07→12:11)
--- NOTE | 2019-11-21 10:36 | Dialysis Progress Note ---
Date of Service November 21, 2019 Assessment & Plan (1) ESRD on dialysis: Mr. Poon appears to be stable. However, his fall resulted a pelvic fracture. He has some discomfort there. He also landed falling forward and has some rib discomfort as well. His chest sounds clear and it does not sound as if he has any significant intrathoracic pathology. He has end-stage renal disease and has been on dialysis for years. He is having his routine treatment now. He will need to be transferred to an inpatient rehabilitation facility or half-way for physical therapy. I am not sure his will be able to provide all of his necessary care at home. If he is transferred to Rehab will arrange for his outpatient dialysis treatments at [facility] in [place]. Overall clinically seems to be stable, blood pressure, volume status acceptable. Waiting for rehab discharge. --hemodialysis tomorrow as his regular schedule --avoid IV fluid, dose meds for GFR less than 10. --left arm nephrology precaution Will follow (2) Closed fracture of symphysis pubis: (3) Aortic valve replaced: Admission and Anticipated Discharge Date Admission Date: November 19, 2019 Subjective Mr. Poon continues to have significant pain related to his recent fall. Most of his pains Cristofer was seen and evaluated in his room this morning. He has been otherwise doing well. Appetite seems to be decent and he has been eating normally. Denies any other symptoms. Blood pressure stable. Results & Data ([facility]) Vital Signs (Past 12 Hours) Vital Signs Temp Pulse Pulse Pulse Resp BP BP 11/21/19 10:00 90 118/62 11/21/19 09:40 91 H 89/54 L 11/21/19 09:20 56 L 93/44 L 11/21/19 09:07 50 L 96/53 L 11/21/19 08:57 36.9 C 51 L 11/21/19 07:27 36.6 C 75 18 145/73 H 11/21/19 04:14 67 11/21/19 03:05 36.7 C 83 20 131/68 11/21/19 00:19 36.7 C 77 18 131/70 Pulse Ox 11/21/19 10:00 11/21/19 09:40 11/21/19 09:20 11/21/19 09:07 11/21/19 08:57 11/21/19 07:27 92 05/08/20 04:14 11/21/19 03:05 93 11/21/19 00:19 92 Coding Level of Care Code 91808 Subseq Hosp Care Lvl 3 Diagnoses ESRD on dialysis N18.6; Z99.2 Closed fracture of symphysis pubis S32.591A Encounter type: initial encounter Laterality: right Aortic valve replaced Z95.2 (1) Closed fracture of symphysis pubis Encounter type: initial encounter Laterality: right Qualified Code(s): S32.591A - Other specified fracture of right pubis, initial encounter for closed fracture
--- NOTE | 2019-11-21 11:25 | Dialysis Progress Note ---
Date of Service November 21, 2019 Assessment & Plan (1) ESRD on dialysis: Mr. Poon appears to be stable. However, his fall resulted a pelvic fracture. He has some discomfort there. He also landed falling forward and has some rib discomfort as well. His chest sounds clear and it does not sound as if he has any significant intrathoracic pathology. He has end-stage renal disease and has been on dialysis for years. He is having his routine treatment now and I suspect that it will be uneventful as usual. I recommend that he continue with his routine medications and diet. He should also have physical therapy for transfers. I suspect he is going to need to be transferred to an inpatient rehabilitation facility or assisted for physical therapy. I am not sure his will be able to provide all of his necessary care at home. No other recommended changes. If he is transferred will arrange for his outpatient dialysis treatments at [facility] in [place]. (2) Closed fracture of symphysis pubis: (3) Aortic valve replaced: Admission and Anticipated Discharge Date Admission Date: November 19, 2019 Subjective Mr. Poon remains relatively stable. However, he continues to have significant pain in the anterior lower chest, worse with respirations but especially coughing. Additionally, he has lower abdominal pain just over the symphysis pubis. His cough is nonproductive. He does not feel particularly short of breath. He says that he has not gotten much in the way of pain medication although the record indicates otherwise. He has no specific symptoms of uremia or volume overload. However, he says that his appetite is poor and he is somewhat nauseated. That may be related to his use of narcotic analgesics which, as noted, he has been getting. He has had no hematemesis or melena. He denies being short of breath at rest despite his anterior chest discomfort. He has not been ambulatory because of the discomfort. He has no cardiovascular symptoms or complaints. His review of systems is otherwise unremarkable. Physical Exam Physical Exam: On physical examination, Mr. Poon appears stable. He was seen just after the initiation of his dialysis treatment. at rest, he did not appear to be in any distress. However, with any movement, he complained of pain in the anterior lower chest area and over the symphysis pubis. His vital signs show a blood pressure of 173/71 with a pulse of 66 and regular. His respirations are 18 and nonlabored. His oxygen saturation was 92% on room air. He is afebrile. His skin shows no rash or infiltrative skin disease. His skin turgor is normal. He has scars from prior surgical procedures including his midsternal scar from coronary bypass surgery and a scar beneath the distal right clavicle from his pacemaker. He has a left upper arm AV fistula with a scar in the antecubital fossa on the left from the creation of the fistula. He also has multiple dialysis needle track villalobos over the fistula. There is a left lower quadrant scar from prior herniorrhaphy. Lymphatics show no palpable adenopathy. His head is grossly normal. Eyes are grossly normal. The ocular fundi were not examined. Ears showed him to be wearing hearing aids. I did not examine the external canals or tympanic membranes. Nose, mouth and throat are remarkable for several missing teeth. Oral mucous membranes are moist. His neck is supple. He has no jugular venous distention. There is no carotid bruit or thyromegaly. His chest shows tenderness over the lower ribs anteriorly. His respirations are easy and nonlabored. He has no wheezes, rales or rhonchi. Cardiac exam shows a basically regular rhythm. S1 and S2 are normal. He has normal bioprosthetic valve sounds. I heard no murmur or gallop. His abdomen has some tenderness in both upper quadrants but it may be because they were adjacent to his ribs. He has no guarding or rebound. He has no organomegaly or mass. Bowel sounds are normal. I hear no abdominal bruits. Extremities show no cyanosis, clubbing or peripheral edema. He does have changes of venous stasis dermatitis on his distal lower extremities. Peripheral pulses are diminished but present. He has a limitation of motion of both shoulders. He has no pain on internal or external rotation of the hips when lying flat. However, with his right hip flexed, he does have pain on external rotation. His neurologic exam shows no lateralizing findings. He is alert and oriented. Results & Data ([facility]) Vital Signs (Past 12 Hours) Laboratory Results - last 24 hr 11/21/19 08:00 Stool Occult Bld Scrn Negative Vital Signs Temp Pulse Pulse Pulse Resp BP BP 11/21/19 10:40 66 173/71 H 11/21/19 10:20 94 H 118/87 11/21/19 10:00 90 118/62 11/21/19 09:40 91 H 89/54 L 11/21/19 09:20 56 L 93/44 L 11/21/19 09:07 50 L 96/53 L 11/21/19 08:57 36.9 C 51 L 11/21/19 07:27 36.6 C 75 18 145/73 H 11/21/19 04:14 67 11/21/19 03:05 36.7 C 83 20 131/68 11/21/19 00:19 36.7 C 77 18 131/70 Pulse Ox 11/21/19 10:40 11/21/19 10:20 11/21/19 10:00 11/21/19 09:40 11/21/19 09:20 11/21/19 09:07 11/21/19 08:57 11/21/19 07:27 92 11/21/19 04:14 11/21/19 03:05 93 11/21/19 00:19 92 [facility] Procedure Codes (Charges) Renal/Urologic Renal/Urologic: 54482 Hemodialysis, One Evaluation Coding Level of Care Code 05052 Subseq Hosp Care Lv 3 Diagnoses ESRD on dialysis N18.6; Z99.2 Closed fracture of symphysis pubis S32.591A Encounter type: initial encounter Laterality: right Aortic valve replaced Z95.2 CPT Codes Renal/Urologic - Renal/Urologic: 48481 Hemodialysis, One Evaluation ([id number]) (1) Closed fracture of symphysis pubis Encounter type: initial encounter Laterality: right Qualified Code(s): S32.591A - Other specified fracture of right pubis, initial encounter for closed fracture
--- NOTE | 2019-11-21 11:49 | Hospitalist Progress Note ---
Date of Service November 21, 2019 Assessment & Plan (1) Status post fall: 84 year old male with history of ESRD, CAD/CABG, Bradycardia s/p PM, other problems noted below presenting with back pain, weakness after mechanical fall. (1) Ambulatory dysfunction: (2) Fall: (3) Closed compression fracture of L1 vertebra: (4) Closed fracture of Right symphysis pubis: Pt is 84 y/o M with PMH ESRD on HD on MWF schedule, CAD s/p CABG, symptomatic bradycardia s/p pacemaker, chronic anemia, hyperparathyroidism, BPH, bullous pemphigoid presented to ER with complaint of mechanical fall this morning. Denies any known LOC, dizziness, CP, SOB, palpitations. Pt complains of headache, posterior neck pain, mid back pain and pain to groin. In ER afebrile, P: 115 down to 80, R: 18, BP: 112/87, 94% on RA. No leukocytosis, H/H: 11/35, Plt: 112, no significant electrolyte abnormality CT HEAD: No acute intracranial abnormality. Age-related change. CT C-SPINE:Degenerative change. No acute process. CT L-SPINE:1. 30% compression deformity superior endplate of L1. 2. This shows no evidence for posterior displacement or compromise of the spinal canal. 3. Remainder the study is remarkable for generalized degenerative disc change and osteoporosis. CT PELVIS: 1. Nondisplaced cortical fracture right symphysis pubis. 2. Posttraumatic soft tissue contusion posterior and superior to the right symphysis pubis measuring 3 x 2 cm. 3. Old healed fracture left pubic ring LEFT SHOULDER XRAY: 1. No acute bony abnormality. 2. Deformity left humeral head and neck consistent with an old healed fracture. - Ortho spine: no surgical intervention at this time Gen Ortho: awaiting recommendations - Oxycodone increased to q6h Tramadol q12h ordered Tylenol ordered q8h - PT/OT recommending SNF renal case manager on board (5) ESRD on dialysis: On Sunday hemodialysis schedule - HD today appreciate Dr. Jj's recommendations - patient may not able to tolerate Upper GI series- required 2 person assist to stand with PT check FOBT (6) ASCVD (arteriosclerotic cardiovascular disease): S/P CABG -Denies chest pain -Continue aspirin, statin (7) 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: Chronic anemia. Baseline Hgb ~11 Current hemoglobin at baseline (8) Ischemic cardiomyopathy: CXR: Pulmonary vascular congestion -Volume status controlled by dialysis (9) Symptomatic bradycardia: S/P pacemaker Follows with Dr. Mcwilliams -Pacemaker interrogation (10) BPH (benign prostatic hyperplasia): -Continue tamsulosin (11) Bullous pemphigoid: Follows with dermatology outpatient. Past history of needing oral prednisone -Not currently on oral steroids DVT Prophylaxis -SCDs anticipate d/c to SNF when accepted Admission and Anticipated Discharge Date Admission Date: November 19, 2019 Subjective ff up for back pain, s/p fall seen while having HD alert, oriented x 3, not in distress back pain seems to be improving, no leg weakness no chest pain, dyspnea, cough no other symptoms Review of Systems Review of Systems: All systems reviewed & are unremarkable except as noted in HPI & below Physical Exam Physical Exam: General- oriented x 3, not in distress, speaks in sentences with no effort or accessory muscle use Eyes- anicteric Neck- no JVD Lungs- clear breath sounds bilaterally, no rales/wheezes Heart- normal rate, regular rhythm; no murmurs Abdomen- normal bowel sounds, nondistended, soft, nontender Extremities- no pretibial edema, no calf tenderness Neuro- alert, oriented x 3; no gross focal neurologic deficits Skin- warm & dry Results & Data Results & Data ([facility]) Vital Signs (Past 12 Hours) Vital Signs Temp Pulse Pulse Pulse Resp BP BP 11/21/19 11:40 94 H 138/63 11/21/19 11:20 98 H 157/91 H 11/21/19 11:00 68 156/77 H 11/21/19 10:40 66 173/71 H 11/21/19 10:20 94 H 118/87 11/21/19 10:00 90 118/62 11/21/19 09:40 91 H 89/54 L 11/21/19 09:20 56 L 93/44 L 11/21/19 09:07 50 L 96/53 L 11/21/19 08:57 36.9 C 51 L 11/21/19 07:27 36.6 C 75 18 145/73 H 11/21/19 04:14 67 11/21/19 03:05 36.7 C 83 20 131/68 11/21/19 00:19 36.7 C 77 18 131/70 Pulse Ox 11/21/19 11:40 11/21/19 11:20 11/21/19 11:00 11/21/19 10:40 11/21/19 10:20 11/21/19 10:00 11/21/19 09:40 11/21/19 09:20 11/21/19 09:07 11/21/19 08:57 11/21/19 07:27 92 11/21/19 04:14 11/21/19 03:05 93 11/21/19 00:19 92 Laboratory Results Laboratory Results - last 24 hr 11/21/19 08:00 Stool Occult Bld Scrn Negative
[2019-11-21] MEDS: CALCIUM ACETATE 667 MG CAP/TAB PO SCH ×3 (14:05→16:51)
[2019-11-21] MEDS: ATORVASTATIN 40 MG TAB PO SCH (14:06)
[2019-11-21] MEDS: ASPIRIN 81 MG ECTAB PO SCH (14:06)
[2019-11-21] MEDS: TAMSULOSIN HCL 0.4 MG CAP PO SCH (21:11)
[2019-11-22] MEDS: ACETAMINOPHEN 325 MG TAB PO SCH ×3 (05:41→20:27)
[2019-11-22] MEDS: ASPIRIN 81 MG ECTAB PO SCH (08:39)
[2019-11-22] MEDS: ATORVASTATIN 40 MG TAB PO SCH (08:39)
[2019-11-22] MEDS: CALCIUM ACETATE 667 MG CAP/TAB PO SCH ×3 (08:39→17:17)
--- NOTE | 2019-11-22 11:58 | Nephrology Progress Note ---
Date of Service November 22, 2019 Assessment & Plan (1) ESRD on dialysis: Mr. Poon appears to be stable. However, his fall resulted a pelvic fracture. He has some discomfort there. He also landed falling forward and has some rib discomfort as well. His chest sounds clear and it does not sound as if he has any significant intrathoracic pathology. He has end-stage renal disease and has been on dialysis for years. He is having his routine treatment now. He will need to be transferred to an inpatient rehabilitation facility or fci for physical therapy. I am not sure his will be able to provide all of his necessary care at home. If he is transferred to Rehab will arrange for his outpatient dialysis treatments at [facility] in [place]. --suggest starting him on his home dose of oxycodone 5 milligram b.i.d --will monitor over the weekend and plan for next dialysis Sunday --waiting for possible rehab discharge --left arm nephrology precaution Will follow (2) Closed fracture of symphysis pubis: (3) Aortic valve replaced: Admission and Anticipated Discharge Date Admission Date: November 19, 2019 Subjective Cristofer was seen and examined in his room this morning. He reports ongoing hip pain which has been interfering with his sleep and was requesting his home dose of oxycodone 5 milligram twice a day. Appetite seems to be decent and he has been eating normally. Denies any other symptoms. Blood pressure stable. Review of Systems Review of Systems: All systems reviewed & are unremarkable except as noted in HPI & below Physical Exam Constitutional: WD/WN, vitals as above no acute distress Respiratory: normal respiratory effort, lungs clear to auscultation Cardiovascular: RRR, no murmur, no edema Skin: no rashes, warm and dry Neurologic: awake; no focal motor deficits and not confused Psychiatric: A+Ox3, euthymic affect Results & Data ([facility]) Vital Signs (Past 12 Hours) Vital Signs Temp Pulse Resp BP Pulse Ox 11/22/19 11:35 36.4 C L 88 20 105/64 94 11/22/19 07:04 36.4 C L 85 18 113/61 94 11/22/19 03:06 36.6 C 92 H 19 126/68 95 PG Care Time/CCT Total # of Minutes Spent Total Time Spent with Patient: Total time spent is greater than 50% in coordination of care (as documented) at patient's floor/unit and/or counseling patient: Coding Level of Care Code 10837 Subseq Hosp Care Lvl 2 Diagnoses ESRD on dialysis N18.6; Z99.2 Closed fracture of symphysis pubis S32.591A Encounter type: initial encounter Laterality: right Aortic valve replaced Z95.2 (1) Closed fracture of symphysis pubis Encounter type: initial encounter Laterality: right Qualified Code(s): S32.591A - Other specified fracture of right pubis, initial encounter for closed fracture
[2019-11-22] MEDS: OXYCODONE HCL IR 5 MG TAB (IMMEDIATE RELEASE) PO PRN ×2 (12:37→22:58)
--- NOTE | 2019-11-22 15:43 | Hospitalist Progress Note ---
Date of Service November 22, 2019 Assessment & Plan (1) Status post fall: 84 year old male with history of ESRD, CAD/CABG, Bradycardia s/p PM, other problems noted below presenting with back pain, weakness after mechanical fall. (1) Ambulatory dysfunction: (2) Fall: (3) Closed compression fracture of L1 vertebra: (4) Closed fracture of Right symphysis pubis: Pt is 84 y/o M with PMH ESRD on HD on MWF schedule, CAD s/p CABG, symptomatic bradycardia s/p pacemaker, chronic anemia, hyperparathyroidism, BPH, bullous pemphigoid presented to ER with complaint of mechanical fall this morning. Denies any known LOC, dizziness, CP, SOB, palpitations. Pt complains of headache, posterior neck pain, mid back pain and pain to groin. In ER afebrile, P: 115 down to 80, R: 18, BP: 112/87, 94% on RA. No leukocytosis, H/H: 11/35, Plt: 112, no significant electrolyte abnormality CT HEAD: No acute intracranial abnormality. Age-related change. CT C-SPINE:Degenerative change. No acute process. CT L-SPINE:1. 30% compression deformity superior endplate of L1. 2. This shows no evidence for posterior displacement or compromise of the spinal canal. 3. Remainder the study is remarkable for generalized degenerative disc change and osteoporosis. CT PELVIS: 1. Nondisplaced cortical fracture right symphysis pubis. 2. Posttraumatic soft tissue contusion posterior and superior to the right symphysis pubis measuring 3 x 2 cm. 3. Old healed fracture left pubic ring LEFT SHOULDER XRAY: 1. No acute bony abnormality. 2. Deformity left humeral head and neck consistent with an old healed fracture. - Ortho spine: no surgical intervention at this time Gen Ortho: awaiting recommendations - Oxycodone 8 hours as needed Tramadol q12h as needed Tylenol ordered q8h - PT/OT recommending SNF egg caser on board (5) ESRD on dialysis: On Sunday hemodialysis schedule - appreciate Dr. Jj's recommendations - patient may not able to tolerate Upper GI series- required 2 person assist to stand with PT FOBT negative (6) ASCVD (arteriosclerotic cardiovascular disease): S/P CABG -Denies chest pain -Continue aspirin, statin (7) 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: Chronic anemia. Baseline Hgb ~11 Current hemoglobin at baseline (8) Ischemic cardiomyopathy: CXR: Pulmonary vascular congestion -Euvolemic (9) Symptomatic bradycardia: S/P pacemaker Follows with Dr. Mcwilliams -Pacemaker interrogation: Appropriate pacing, recorded events show NSVT, no changes recommended (10) BPH (benign prostatic hyperplasia): -Continue tamsulosin (11) Bullous pemphigoid: Follows with dermatology outpatient. Past history of needing oral prednisone -Not currently on oral steroids DVT Prophylaxis -SCDs anticipate d/c to SNF when accepted Admission and Anticipated Discharge Date Admission Date: November 19, 2019 Subjective Follow-up for back pain, spinal compression fracture, status post fall Seen sitting up in bed, awake, alert, oriented x3, answers all questions appropriately In good spirits, comfortable States he feels better today Back pain has been improving, no leg weakness Denies any other pain No shortness of breath, palpitations, dizziness Appetite is better No other symptoms Review of Systems Review of Systems: All systems reviewed & are unremarkable except as noted in HPI & below Physical Exam Physical Exam: General- oriented x 3, not in distress, speaks in sentences with no effort or accessory muscle use Eyes- anicteric Neck- no JVD Lungs- clear BS bilaterally Heart- normal rate, regular rhythm; no murmurs Abdomen- normal bowel sounds, nondistended, soft, nontender Extremities- no pretibial edema, no calf tenderness Neuro- alert, oriented x 3; no gross focal neurologic deficits Skin- warm & dry Results & Data Results & Data ([facility]) Vital Signs (Past 12 Hours) Vital Signs Temp Pulse Resp BP Pulse Ox 11/22/19 15:19 36.7 C 68 20 115/75 99 11/22/19 11:35 36.4 C L 88 20 105/64 94 11/22/19 07:04 36.4 C L 85 18 113/61 94
[2019-11-22] MEDS: TAMSULOSIN HCL 0.4 MG CAP PO SCH (20:26)
[2019-11-23] MEDS: ACETAMINOPHEN 325 MG TAB PO SCH ×3 (04:49→21:01)
[2019-11-23] MEDS: OXYCODONE HCL IR 5 MG TAB (IMMEDIATE RELEASE) PO PRN ×2 (08:10→15:33)
[2019-11-23] MEDS: CALCIUM ACETATE 667 MG CAP/TAB PO SCH ×3 (08:11→17:01)
[2019-11-23] MEDS: ATORVASTATIN 40 MG TAB PO SCH (08:11)
[2019-11-23] MEDS: ASPIRIN 81 MG ECTAB PO SCH (08:11)
--- NOTE | 2019-11-23 11:39 | Nephrology Progress Note ---
Date of Service November 23, 2019 Assessment & Plan (1) ESRD on dialysis: Mr. Poon appears to be stable. However, his fall resulted a pelvic fracture. He has some discomfort there. He also landed falling forward and has some rib discomfort as well. His chest sounds clear and it does not sound as if he has any significant intrathoracic pathology. He has end-stage renal disease and has been on dialysis for years. He is having his routine treatment now. He will need to be transferred to an inpatient rehabilitation facility or fci for physical therapy. I am not sure his will be able to provide all of his necessary care at home. If he is transferred to Rehab will arrange for his outpatient dialysis treatments at [facility] in [place]. Overall clinically seems to be stable, blood pressure, volume status acceptable. Waiting for rehab discharge. --hemodialysis tomorrow as his regular schedule --avoid IV fluid, dose meds for GFR less than 10. --left arm nephrology precaution Will follow (2) Closed fracture of symphysis pubis: (3) Aortic valve replaced: Admission and Anticipated Discharge Date Admission Date: November 19, 2019 Mervat Cleveland was seen and evaluated in his room this morning. He has been otherwise doing well. Appetite seems to be decent and he has been eating normally. Denies any other symptoms. Blood pressure stable. Review of Systems Review of Systems: All systems reviewed & are unremarkable except as noted in HPI & below Physical Exam Constitutional: WD/WN, vitals as above no acute distress Respiratory: normal respiratory effort, lungs clear to auscultation Cardiovascular: RRR, no murmur, no edema Skin: no rashes, warm and dry Neurologic: awake; no focal motor deficits and not confused Psychiatric: A+Ox3, euthymic affect Results & Data ([facility]) Vital Signs (Past 12 Hours) Vital Signs Temp Pulse Pulse Resp BP Pulse Ox 11/23/19 07:32 74 11/23/19 07:28 36.6 C 78 20 115/71 95 11/23/19 04:00 36.7 C 91 H 20 106/65 97 PG Care Time/CCT Total # of Minutes Spent Total Time Spent with Patient: Total time spent is greater than 50% in coordination of care (as documented) at patient's floor/unit and/or counseling patient: Coding Level of Care Code 98842 Subseq Hosp Care Lvl 2 Diagnoses ESRD on dialysis N18.6; Z99.2 Closed fracture of symphysis pubis S32.591A Encounter type: initial encounter Laterality: right Aortic valve replaced Z95.2 (1) Closed fracture of symphysis pubis Encounter type: initial encounter Laterality: right Qualified Code(s): S32.591A - Other specified fracture of right pubis, initial encounter for closed fracture
--- NOTE | 2019-11-23 14:39 | Hospitalist Progress Note ---
Date of Service November 23, 2019 Assessment & Plan (1) Status post fall: 84 year old male with history of ESRD, CAD/CABG, Bradycardia s/p PM, other problems noted below presenting with back pain, weakness after mechanical fall. (1) Ambulatory dysfunction: (2) Fall: (3) Closed compression fracture of L1 vertebra: (4) Closed fracture of Right symphysis pubis: Pt is 84 y/o M with PMH ESRD on HD on MWF schedule, CAD s/p CABG, symptomatic bradycardia s/p pacemaker, chronic anemia, hyperparathyroidism, BPH, bullous pemphigoid presented to ER with complaint of mechanical fall this morning. Denies any known LOC, dizziness, CP, SOB, palpitations. Pt complains of headache, posterior neck pain, mid back pain and pain to groin. In ER afebrile, P: 115 down to 80, R: 18, BP: 112/87, 94% on RA. No leukocytosis, H/H: 11/35, Plt: 112, no significant electrolyte abnormality CT HEAD: No acute intracranial abnormality. Age-related change. CT C-SPINE:Degenerative change. No acute process. CT L-SPINE:1. 30% compression deformity superior endplate of L1. 2. This shows no evidence for posterior displacement or compromise of the spinal canal. 3. Remainder the study is remarkable for generalized degenerative disc change and osteoporosis. CT PELVIS: 1. Nondisplaced cortical fracture right symphysis pubis. 2. Posttraumatic soft tissue contusion posterior and superior to the right symphysis pubis measuring 3 x 2 cm. 3. Old healed fracture left pubic ring LEFT SHOULDER XRAY: 1. No acute bony abnormality. 2. Deformity left humeral head and neck consistent with an old healed fracture. - Ortho spine: no surgical intervention at this time Gen Ortho: awaiting recommendations - Oxycodone 8 hours as needed Tramadol q12h as needed Tylenol ordered q8h - pain improving daily - PT/OT recommending SNF casework manager on board (5) ESRD on dialysis: On Sunday hemodialysis schedule - appreciate Dr. Jj's recommendations - patient may not able to tolerate Upper GI series- required 2 person assist to stand with PT FOBT negative (6) ASCVD (arteriosclerotic cardiovascular disease): S/P CABG -Denies chest pain -Continue aspirin, statin (7) 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: Chronic anemia. Baseline Hgb ~11 Current hemoglobin at baseline (8) Ischemic cardiomyopathy: CXR: Pulmonary vascular congestion -Euvolemic (9) Symptomatic bradycardia: S/P pacemaker Follows with Dr. Mcwilliams -Pacemaker interrogation: Appropriate pacing, recorded events show NSVT, no c hanges recommended (10) BPH (benign prostatic hyperplasia): -Continue tamsulosin (11) Bullous pemphigoid: Follows with dermatology outpatient. Past history of needing oral prednisone -Not currently on oral steroids DVT Prophylaxis -SCDs anticipate d/c to SNF when accepted Admission and Anticipated Discharge Date Admission Date: November 19, 2019 Subjective ff up for back pain, s/p fall seen resting in bed, sitting up, comfortable, not in distress States back pain continues to improve, no leg weakness Good appetite, no problems swallowing today Denies other symptoms Review of Systems Review of Systems: All systems reviewed & are unremarkable except as noted in HPI & below Physical Exam Physical Exam: General- oriented x 3, not in distress, speaks in sentences with no effort or accessory muscle use Eyes- anicteric Neck- no JVD Lungs- clear BS BL Heart- normal rate, regular rhythm; no murmurs Abdomen- normal bowel sounds, nondistended, soft, nontender Extremities- no pretibial edema, no calf tenderness Neuro- alert, oriented x 3; no gross focal neurologic deficits Skin- warm & dry Results & Data Results & Data ([facility]) Vital Signs (Past 12 Hours) Vital Signs Temp Pulse Pulse Resp BP Pulse Ox 11/23/19 12:36 36.4 C L 71 18 172/80 H 91 11/23/19 07:32 74 11/23/19 07:28 36.6 C 78 20 115/71 95 11/23/19 04:00 36.7 C 91 H 20 106/65 97
[2019-11-23] MEDS: TAMSULOSIN HCL 0.4 MG CAP PO SCH (20:32)
[2019-11-24] MEDS: OXYCODONE HCL IR 5 MG TAB (IMMEDIATE RELEASE) PO PRN ×3 (00:06→16:23)
[2019-11-24] MEDS: ACETAMINOPHEN 325 MG TAB PO SCH ×3 (05:08→20:18)
[2019-11-24] MEDS: CALCIUM ACETATE 667 MG CAP/TAB PO SCH ×3 (08:19→17:31)
[2019-11-24] MEDS: ASPIRIN 81 MG ECTAB PO SCH (08:19)
[2019-11-24] MEDS: ATORVASTATIN 40 MG TAB PO SCH (08:20)
[2019-11-24] MEDS ORDERED: SODIUM CHLORIDE 0.9% 1000ML 1,000 ML IV PRN (09:30)
--- NOTE | 2019-11-24 09:40 | Dialysis Progress Note ---
Date of Service November 24, 2019 Assessment & Plan (1) ESRD on dialysis: (2) Closed fracture of symphysis pubis: (3) ASCVD (arteriosclerotic cardiovascular disease): (4) Hx of CABG: Admission and Anticipated Discharge Date Admission Date: Mr. Poon appears to be relatively stable. He is a bit depressed over his current circumstance. He continues to have pain related to his fractures. He has no current symptoms of either uremia or volume overload. No change in his basic therapy for today. He will be dialyzed later this morning or early this afternoon using his usual dialysis parameters. He will likely need placement for continued physical therapy until his pain subsides to the point where he is capable of managing at home. Subjective Mr. Poon says that he is doing "fair." He continues to have problems with pain in his lower abdomen over the symphysis pubis and in his pelvis. He also has pain in both legs. He says that he is not been out of bed. His appetite is "fair". He has no nausea or vomiting. He has no significant abdominal pain other than the lower abdominal/pelvic pain noted above. He denies having any chest pain or shortness of breath. He is scheduled for dialysis today. His review of systems is otherwise unremarkable. Physical Exam Physical Exam: On physical examination, Mr. Poon was seen in his room. He was lying in bed. He did seem somewhat depressed with his circumstance. He did not appear to be in any other distress. His blood pressure was 122/69 his pulse 67 and regular respiratory rate 18 his pulse ox 97% on room air. He is afebrile (37.0). His skin shows normal skin turgor. He has scars from prior surgical procedures most notably a scar in the left arm from the creation of his AV fistula, a scar beneath the distal right clavicle from his pacemaker and a midsternal scar from prior cardiac surgery. There is no rash or infiltrative skin disease. He has no palpable lymphadenopathy. His head is normal. Eyes are grossly normal. The ocular fundi were not examined. Ears, nose, mouth and throat are unremarkable. His oral mucous membranes are moist. His neck is supple. There is no jugular venous distention, carotid bruit or thyromegaly. His chest was clear to auscultation. Diaphragms are somewhat elevated and breath sounds a bit diminished at the bases related to his body habitus and positioning when seen. Cardiac exam showed a regular rhythm. S1 and S2 are normal. There is a grade 2/6 systolic murmur at the lower left sternal border and apex radiating toward the axilla and to a lesser extent toward the base. No gallops are heard. His abdomen is nontender. There is no organomegaly or mass. Bowel sounds are normal. He has no abdominal bruits. Extremities show no cyanosis, clubbing or peripheral edema. Peripheral pulses are intact albeit diminished. He has significant osteoarthritic changes of the small joints in his hands and he has a limitation of motion of both shoulders. His AV fistula appears to be functioning well. His neurologic exam shows no lateralizing changes. Results & Data ([facility]) Vital Signs (Past 12 Hours) Vital Signs Temp Pulse Pulse Resp BP Pulse Ox 11/24/19 07:35 37.0 C 67 18 122/69 97 11/24/19 07:13 68 11/24/19 04:18 36.8 C 97 H 20 138/76 92 11/23/19 23:04 36.5 C 77 19 124/76 94 11/23/19 22:50 71 [facility] Procedure Codes (Charges) Renal/Urologic Renal/Urologic: 87507 Dialysis, One Evaluation Coding Level of Care Code 10192 Subseq Hosp Care Lv 3 Diagnoses ESRD on dialysis N18.6; Z99.2 Closed fracture of symphysis pubis S32.591A Encounter type: initial encounter Laterality: right ASCVD (arteriosclerotic cardiovascular disease) I25.10 Hx of CABG Z95.1 CPT Codes Renal/Urologic - Renal/Urologic: 20339 Dialysis, One Evaluation ([id number]) (1) Closed fracture of symphysis pubis Encounter type: initial encounter Laterality: right Qualified Code(s): S32.591A - Other specified fracture of right pubis, initial encounter for closed fracture
--- NOTE | 2019-11-24 17:02 | Hospitalist Progress Note ---
Date of Service November 24, 2019 Assessment & Plan (1) Status post fall: 84 year old male with history of ESRD, CAD/CABG, Bradycardia s/p PM, other problems noted below presenting with back pain, weakness after mechanical fall. (1) Ambulatory dysfunction: (2) Fall: (3) Closed compression fracture of L1 vertebra: (4) Closed fracture of Right symphysis pubis: Pt is 84 y/o M with PMH ESRD on HD on MWF schedule, CAD s/p CABG, symptomatic bradycardia s/p pacemaker, chronic anemia, hyperparathyroidism, BPH, bullous pemphigoid presented to ER with complaint of mechanical fall this morning. Denies any known LOC, dizziness, CP, SOB, palpitations. Pt complains of headache, posterior neck pain, mid back pain and pain to groin. In ER afebrile, P: 115 down to 80, R: 18, BP: 112/87, 94% on RA. No leukocytosis, H/H: 11/35, Plt: 112, no significant electrolyte abnormality CT HEAD: No acute intracranial abnormality. Age-related change. CT C-SPINE:Degenerative change. No acute process. CT L-SPINE:1. 30% compression deformity superior endplate of L1. 2. This shows no evidence for posterior displacement or compromise of the spinal canal. 3. Remainder the study is remarkable for generalized degenerative disc change and osteoporosis. CT PELVIS: 1. Nondisplaced cortical fracture right symphysis pubis. 2. Posttraumatic soft tissue contusion posterior and superior to the right symphysis pubis measuring 3 x 2 cm. 3. Old healed fracture left pubic ring LEFT SHOULDER XRAY: 1. No acute bony abnormality. 2. Deformity left humeral head and neck consistent with an old healed fracture. - Ortho spine: no surgical intervention at this time Gen Ortho: awaiting recommendations, requested community facilitator to ff up consult - Oxycodone 8 hours as needed Tramadol q12h as needed Tylenol ordered q8h - pain improving daily - PT/OT recommending SNF manager of case management on board (5) ESRD on dialysis: On Sunday hemodialysis schedule - appreciate Dr. Jj's recommendations for HD today , tolerating well - patient may not able to tolerate Upper GI series- required 2 person assist to stand with PT FOBT negative (6) ASCVD (arteriosclerotic cardiovascular disease): S/P CABG -Denies chest pain -Continue aspirin, statin (7) 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: Chronic anemia. Baseline Hgb ~11 Current hemoglobin at baseline (8) Ischemic cardiomyopathy: CXR: Pulmonary vascular congestion -Euvolemic (9) Symptomatic bradycardia: S/P pacemaker Follows with Dr. Mcwilliams -Pacemaker interrogation: Appropriate pacing, recorded events show NSVT, no changes recommended (10) BPH (benign prostatic hyperplasia): -Continue tamsulosin (11) Bullous pemphigoid: Follows with dermatology outpatient. Past history of needing oral prednisone -Not currently on oral steroids DVT Prophylaxis -SCDs anticipate d/c to SNF when accepted Admission and Anticipated Discharge Date Admission Date: November 19, 2019 Subjective ff up for back pain, s/p fall, ESRD seen resting in bed, comfortable, in good spirits oriented x 3, just had HD states he feels fine overall back pain minimal, well controlled denies chest pain, dyspnea, dizziness no other symptoms Review of Systems Review of Systems: All systems reviewed & are unremarkable except as noted in HPI & below Physical Exam Physical Exam: General- oriented x 3, not in distress, speaks in sentences with no effort or accessory muscle use Eyes- anicteric Neck- no JVD Lungs- clear BS BL, no rales/wheezing Heart- normal rate, regular rhythm; no murmurs Abdomen- normal bowel sounds, nondistended, soft, nontender Extremities- no pretibial edema, no calf tenderness Neuro- alert, oriented x 3; no gross focal neurologic deficits Skin- warm & dry Results & Data Results & Data ([facility]) Vital Signs (Past 12 Hours) Vital Signs Temp Pulse Pulse Pulse Resp BP BP 11/24/19 16:37 87 11/24/19 16:28 36.6 C 87 16 141/84 H 11/24/19 16:06 36.4 C L 88 113/71 11/24/19 15:50 88 113/71 11/24/19 15:40 57 L 144/63 H 11/24/19 15:20 81 143/69 H 11/24/19 15:00 70 127/70 11/24/19 14:40 81 130/63 11/24/19 14:20 83 125/71 11/24/19 14:00 80 116/58 L 11/24/19 13:40 77 103/55 L 11/24/19 13:20 81 107/59 L 11/24/19 13:00 78 99/54 L 11/24/19 12:40 77 96/50 L 11/24/19 12:20 79 95/50 L 11/24/19 12:05 80 110/57 L 11/24/19 11:54 36.4 C L 72 11/24/19 11:50 36.7 C 73 18 133/68 11/24/19 07:35 37.0 C 67 18 122/69 11/24/19 07:13 68 Pulse Ox 11/24/19 16:37 11/24/19 16:28 94 11/24/19 16:06 11/24/19 15:50 11/24/19 15:40 11/24/19 15:20 11/24/19 15:00 11/24/19 14:40 11/24/19 14:20 11/24/19 14:00 11/24/19 13:40 11/24/19 13:20 11/24/19 13:00 11/24/19 12:40 11/24/19 12:20 11/24/19 12:05 11/24/19 11:54 11/24/19 11:50 96 11/24/19 07:35 97 11/24/19 07:13
[2019-11-24] MEDS: TAMSULOSIN HCL 0.4 MG CAP PO SCH (20:17)
[2019-11-25] MEDS: OXYCODONE HCL IR 5 MG TAB (IMMEDIATE RELEASE) PO PRN ×3 (00:20→17:04)
[2019-11-25] MEDS: ACETAMINOPHEN 325 MG TAB PO SCH ×3 (05:39→21:48)
[2019-11-25] MEDS: ASPIRIN 81 MG ECTAB PO SCH (08:17)
[2019-11-25] MEDS: ATORVASTATIN 40 MG TAB PO SCH (08:17)
[2019-11-25] MEDS: CALCIUM ACETATE 667 MG CAP/TAB PO SCH ×3 (08:17→17:04)
--- NOTE | 2019-11-25 09:56 | Nephrology Progress Note ---
Date of Service November 25, 2019 Assessment & Plan (1) ESRD on dialysis: Mr. Poon appears to be doing relatively well. He seems frustrated with his current plight and not happy being in the hospital. However, he continues to have pain with movement and has not shown any evidence that he is capable of caring for himself to a significant degree, at least at the current time. I do think he is going to need placement in a skilled facility to get physical therapy for a period of time until his pain syndrome is diminished. He has been tolerating dialysis in the hospital. He does have a lower hemoglobin then he had had an EPO was being added to his regimen. His next hemodialysis will be tomorrow assuming he is still here and has not been transferred to an alternate facility for transition to home. (2) Status post fall: (3) Closed fracture of symphysis pubis: (4) Aortic valve replaced: (5) ASCVD (arteriosclerotic cardiovascular disease): Admission and Anticipated Discharge Date Admission Date: November 19, 2019 Subjective Mr. Poon says that he is not feeling particularly well this morning. However, he has no specific complaints. He did eat his breakfast. He did say that he was somewhat queasy but he had no abdominal pain. He had no vomiting. He has some chest soreness on the lower rib cage on the left but no berta chest pain. He does not feel short of breath. He has not had any palpitations. He has no symptoms of uremia or volume overload. He continues to have some pain in the lower chest on the left side and to a lesser extent the right side as well as in the pelvic area anytime he has movement. He has been getting some physical therapy. He tolerated his dialysis treatment yesterday. He has no other complaints. He thinks that he could do well at home. However, he is having a difficult time managing on his own at the current time and does need the support of hospital staff. He has no one at home except for his although other family members do live nearby. His review of systems is otherwise unremarkable. Physical Exam Physical Exam: On physical examination, Mr. Poon appears about the same. He seemed to be comfortable in bed but was intermittently mildly tachypneic. He did not appear to be in any pain although he did say that he did have pain with any movement. His vital signs showed a blood pressure of 111/59 with a pulse of 60 and regular. His respiratory rate is 20 and his pulse ox 91% on room air. His temperature is 36.7 degrees. His skin shows normal skin turgor. He has no rash other than changes of mild venous stasis dermatitis on his lower extremities. He has scars from prior surgical procedures including a midsternal scar from coronary bypass surgery and a scar beneath the distal right clavicle from his pacemaker. There is a left upper arm AV fistula with a scar in the antecubital fossa from the creation of his fistula. He has multiple dialysis needle track villalobos over the fistula. He has a scar from a left inguinal herniorrhaphy. There is no palpable lymphadenopathy. His head is normal. Eyes are grossly normal. The ocular fundi were not examined. Ears showed him to be wearing hearing aids bilaterally. His hearing seems reasonably good to normal conversation. Nose, mouth and throat are unremarkable other than multiple missing teeth. His oral mucous membranes are moist. His neck is supple. There is no jugular venous distention, carotid bruit or thyromegaly. His chest shows tenderness to the lower anterior ribs bilaterally left worse than right. His chest is clear to auscultation with no wheezes, rales or rhonchi. Cardiac exam shows a regular rhythm. He has normal bioprosthetic valve sounds. He has a soft systolic murmur along the left sternal border. His abdomen is somewhat obese but nontender. There is no organomegaly or mass. Extremities showed no cyanosis or clubbing. There is no lower extremity edema. Peripheral pulses are diminished but present. He has no bruits over major blood vessels. He still has some pain on motion of his right hip. His neurologic exam shows him to be oriented in 3 spheres. There are no lateralizing changes. He has no asterixis. Results & Data ([facility]) Vital Signs (Past 12 Hours) Vital Signs Temp Pulse Pulse Resp BP Pulse Ox 11/25/19 07:22 36.7 C 60 20 111/59 L 91 11/25/19 07:16 86 11/25/19 03:31 36.6 C 81 19 108/58 L 93 11/25/19 00:08 95 H 11/24/19 23:46 36.6 C 88 19 112/65 93 PG Care Time/CCT Total # of Minutes Spent Total Time Spent with Patient: Total time spent is greater than 50% in coordination of care (as documented) at patient's floor/unit and/or counseling patient: Coding Level of Care Code 63484 Subseq Hosp Care Lvl 3 Diagnoses ESRD on dialysis N18.6; Z99.2 Status post fall Z91.81 Closed fracture of symphysis pubis S32.591A Encounter type: initial encounter Laterality: right Aortic valve replaced Z95.2 ASCVD (arteriosclerotic cardiovascular disease) I25.10 (1) Closed fracture of symphysis pubis Encounter type: initial encounter Laterality: right Qualified Code(s): S32.591A - Other specified fracture of right pubis, initial encounter for closed fracture
[2019-11-25 10:29] LABS: Ferritin 1147.4 ng/ml (8-388)
[2019-11-25] MEDS ORDERED: TRAMADOL HCL 50 MG TABLET PO PRN (17:55)
--- NOTE | 2019-11-25 18:17 | Hospitalist Progress Note ---
Date of Service November 25, 2019 Assessment & Plan (1) Status post fall: 84 year old male with history of ESRD, CAD/CABG, Bradycardia s/p PM, other problems noted below presenting with back pain, weakness after mechanical fall. (1) Ambulatory dysfunction: (2) Fall: (3) Closed compression fracture of L1 vertebra: (4) Closed fracture of Right symphysis pubis: Pt is 84 y/o M with PMH ESRD on HD on MWF schedule, CAD s/p CABG, symptomatic bradycardia s/p pacemaker, chronic anemia, hyperparathyroidism, BPH, bullous pemphigoid presented to ER with complaint of mechanical fall this morning. Denies any known LOC, dizziness, CP, SOB, palpitations. Pt complains of headache, posterior neck pain, mid back pain and pain to groin. In ER afebrile, P: 115 down to 80, R: 18, BP: 112/87, 94% on RA. No leukocytosis, H/H: 11/35, Plt: 112, no significant electrolyte abnormality CT HEAD: No acute intracranial abnormality. Age-related change. CT C-SPINE:Degenerative change. No acute process. CT L-SPINE:1. 30% compression deformity superior endplate of L1. 2. This shows no evidence for posterior displacement or compromise of the spinal canal. 3. Remainder the study is remarkable for generalized degenerative disc change and osteoporosis. CT PELVIS: 1. Nondisplaced cortical fracture right symphysis pubis. 2. Posttraumatic soft tissue contusion posterior and superior to the right symphysis pubis measuring 3 x 2 cm. 3. Old healed fracture left pubic ring LEFT SHOULDER XRAY: 1. No acute bony abnormality. 2. Deformity left humeral head and neck consistent with an old healed fracture. - Ortho spine: no surgical intervention at this time Gen Ortho: awaiting recommendations, requested unit manager rn to ff up consult - Oxycodone 8 hours as needed (caution with increasing dose as patient prone to confusion with higher doses) Tramadol q12h as needed Tylenol ordered q8h - pain increased today with PT continue pain management - PT/OT recommending SNF--> case filler on board, patient's Zenia updated, she is requesting patient referred to [facility] case filler on board (5) ESRD on dialysis: On Sunday hemodialysis schedule - appreciate Dr. 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 Baseline Hgb ~11 Current hemoglobin at baseline (8) Ischemic cardiomyopathy: CXR: Pulmonary vascular congestion -Euvolemic (9) Symptomatic bradycardia: S/P pacemaker Follows with Dr. Mcwilliams -Pacemaker interrogation: Appropriate pacing, recorded events show NSVT, no changes recommended (10) BPH (benign prostatic hyperplasia): -Continue tamsulosin (11) Bullous pemphigoid: Follows with dermatology outpatient. Past history of needing oral prednisone -Not currently on oral steroids DVT Prophylaxis -SCDs anticipate d/c to SNF when accepted case filler on board, patient's Zenia updated, she is requesting patient referred to [facility] Admission and Anticipated Discharge Date Admission Date: November 19, 2019 Subjective ff up for back pain, s/p fall seen resting in bed not in distress just had PT, states back pain worsened with PT no leg weakness no chest pain, dyspnea, palpitations, dizziness no other symptoms Review of Systems Review of Systems: All systems reviewed & are unremarkable except as noted in HPI & below Physical Exam Physical Exam: General- oriented x 3, not in distress, speaks in sentences with no effort or accessory muscle use Eyes- anicteric Neck- no JVD Lungs- clear BS BL Heart- normal rate, regular rhythm; no murmurs Abdomen- normal bowel sounds, nondistended, soft, nontender Extremities- no pretibial edema, no calf tenderness Neuro- alert, oriented x 3; no gross focal neurologic deficits Skin- warm & dry Results & Data Results & Data ([facility]) Vital Signs (Past 12 Hours) Vital Signs Temp Pulse Pulse Resp BP Pulse Ox 11/25/19 17:00 93 H 11/25/19 16:27 36.6 C 81 18 147/67 H 92 11/25/19 11:54 36.9 C 68 18 130/68 95 11/25/19 07:22 36.7 C 60 20 111/59 L 91 11/25/19 07:16 86
[2019-11-25] MEDS: TAMSULOSIN HCL 0.4 MG CAP PO SCH (20:57)
[2019-11-26] MEDS: ACETAMINOPHEN 325 MG TAB PO SCH ×3 (05:24→21:44)
[2019-11-26] MEDS ORDERED: EPOETIN ALFA 10,000 UNITS/ML VIAL IV ONE (07:00)
[2019-11-26] MEDS ORDERED: HEPARIN SOD (PORCINE) 1000 UNIT/ML 10 ML VIAL IV ONE (07:00)
[2019-11-26] MEDS ORDERED: SODIUM CHLORIDE 0.9% 1000ML 1,000 ML IV PRN (07:00)
[2019-11-26] MEDS: CALCIUM ACETATE 667 MG CAP/TAB PO SCH ×3 (08:14→16:36)
[2019-11-26] MEDS: ASPIRIN 81 MG ECTAB PO SCH (08:14)
[2019-11-26] MEDS: ATORVASTATIN 40 MG TAB PO SCH (08:14)
--- NOTE | 2019-11-26 09:52 | Dialysis Progress Note ---
Date of Service November 26, 2019 Assessment & Plan (1) ESRD on dialysis: Hemodialysis scheduled for today. Presumably, he has a bed at [facility] that will be available early next week. No change in his basic diet and medications. Continue with physical therapy here. (2) Closed fracture of symphysis pubis: (3) Closed compression fracture of L1 vertebra: (4) Aortic valve replaced: (5) Hx of CABG: (6) ASCVD (arteriosclerotic cardiovascular disease): Admission and Anticipated Discharge Date Admission Date: November 19, 2019 Subjective Mr. Poon says that he is feeling somewhat better today. He still has significant discomfort in his pelvic area and right hip with any movement. However, taking Percocet before he moves around too much, particularly for physical therapy, seems to relieve his discomfort significantly. He still has pain in both shoulders which is a chronic issue. He denies having any back pain. He has no symptoms of uremia or volume overload. Particularly, he says that his appetite seems to be a bit better. He is not short of breath. He says that he slept fairly well last night. He has no other particular issues or problems. He is looking forward to trying to get out of the hospital but realizes that he will need some type of physical therapy/skilled care for a period of time. He is scheduled for dialysis a bit later today. Physical Exam Physical Exam: On physical examination, Mr. Poon appears as an elderly somewhat chronically ill gentleman who did not appear to be in any distress when seen by me today. He was lying comfortably in bed. He is awake, alert and oriented. His blood pressure this morning was 135/64 his pulse 76 and regular respiratory rate 19 his pulse ox 95% on room air. He is afebrile. Examination of his skin shows normal skin turgor. He has no rash or infiltrative skin disease other than evidence of venous stasis dermatitis on his distal lower extremities. He has scars from prior surgical procedures including a midsternal scar from coronary bypass surgery and a scar beneath the distal right clavicle from his pacemaker. He has a left upper arm AV fistula with a scar in the antecubital fossa. He has multiple dialysis needle track villalobos over the fistula. He also has a scar from an inguinal herniorrhaphy on the left. Lymphatics show no palpable adenopathy. His head is normal. Eyes are grossly normal. The ocular fundi were not examined. Ears, nose, mouth and throat are unremarkable. He does have several missing teeth. His oral mucous membranes are moist. His neck is supple. There is mild jugular venous distention with him lying at about 45 degrees. The jugular veins are noted to about 2 to 3 cm above the clavicle. They collapse with deep breathing. He has no carotid bruit. There is no thyromegaly. His chest is clear to auscultation. He has some chest wall tenderness over the lower ribs on the right anteriorly and laterally. He has no wheezes, rales or rhonchi. Cardiac exam shows a regular rhythm. He has normal bioprosthetic valve sounds. He has a grade 2/6 systolic murmur at the left sternal border and base also heard at the apex. He has no pericardial friction rubs. His abdomen is nontender. There is no organomegaly or mass. Bowel sounds are normal. He has no abdominal bruits. Extremities show the AV fistula in the left upper arm. It seems to function well. He has a bruit over the graft radiating into the left chest. Peripheral pulses are diminished but present. His neurologic exam shows no lateralizing changes. He has no asterixis. Results & Data ([facility]) Vital Signs (Past 12 Hours) Vital Signs Temp Pulse Pulse Resp BP Pulse Ox 11/26/19 07:15 76 11/26/19 07:05 36.5 C 78 19 135/64 95 11/26/19 04:56 36.6 C 90 20 138/67 91 11/26/19 00:38 69 11/26/19 00:08 36.6 C 87 19 110/58 L 92 Laboratory Results Laboratory Results - last 24 hr 11/25/19 11/26/19 11/26/19 09:52 09:36 09:36 WBC Pending RBC Pending Hgb Pending Hct Pending MCV Pending MCH Pending MCHC Pending Plt Count Pending Sodium Pending Potassium Pending Chloride Pending Carbon Dioxide Pending Anion Gap Pending BUN Pending Creatinine Pending Est Cr Clr Drug Dosing Pending Est GFR ( Amer) Pending Est GFR (Non-Af Amer) Pending BUN/Creatinine Ratio Pending Glucose Pending Calcium Pending Magnesium Pending Iron 25 L TIBC 104 L Transferrin 102 L Transferrin % Sat 17 L Ferritin 1147.4 H [facility] Procedure Codes (Charges) Renal/Urologic Renal/Urologic: 69636 Hemodialysis, One Evaluation Coding Level of Care Code 59460 Subseq Hosp Care Lvl 3 Diagnoses ESRD on dialysis N18.6; Z99.2 Closed fracture of symphysis pubis S32.591A Encounter type: initial encounter Laterality: right Closed compression fracture of L1 vertebra S32.010A Encounter type: initial encounter Aortic valve replaced Z95.2 Hx of CABG Z95.1 ASCVD (arteriosclerotic cardiovascular disease) I25.10 CPT Codes Renal/Urologic - Renal/Urologic: 40929 Hemodialysis, One Evaluation ([id number]) (1) Closed fracture of symphysis pubis Encounter type: initial encounter Laterality: right Qualified Code(s): S32.591A - Other specified fracture of right pubis, initial encounter for closed fracture (2) Closed compression fracture of L1 vertebra Encounter type: initial encounter Qualified Code(s): S32.010A - Wedge compression fracture of first lumbar vertebra, initial encounter for closed fracture
--- NOTE | 2019-11-26 09:53 | Nephrology Progress Note ---
Date of Service November 25, 2019 Assessment & Plan Admission and Anticipated Discharge Date Admission Date: November 19, 2019 Results & Data ([facility]) Vital Signs (Past 12 Hours) Vital Signs Temp Pulse Pulse Resp BP Pulse Ox 11/25/19 07:22 36.7 C 60 20 111/59 L 91 11/25/19 07:16 86 11/25/19 03:31 36.6 C 81 19 108/58 L 93 11/25/19 00:08 95 H 11/24/19 23:46 36.6 C 88 19 112/65 93 PG Care Time/CCT Total # of Minutes Spent Total Time Spent with Patient: Total time spent is greater than 50% in coordination of care (as documented) at patient's floor/unit and/or counseling patient: Coding Level of Care Code 20886 Subseq Hosp Care Lvl 3
[2019-11-26 09:56] LABS: Basophils # (auto) 0.02 K/uL (0-0.2); Basophils % (auto) 0.4 %; Eosinophils # (auto) 0.38 K/uL (0-0.5); Eosinophils % (auto) 6.9 %; Hematocrit (blood only) 34.2 % (42-52); Hemoglobin 10.9 g/dL (14.0-18.0); Immature Granulocytes # (auto) 0.02 K/uL (0.00-0.02); Immature Granulocytes % (auto) 0.4 %; Lymphocytes # (auto) 1.18 K/uL (1.2-3.4); Lymphocytes % (auto) 21.5 %; Mean Corpuscular Hemoglobin 24.3 pg (25-34); Mean Corpuscular Hgb Conc 31.9 g/dL (32-36); Mean Corpuscular Volume 76.3 fL (80-100); Mean Platelet Volume 11.4 fL (7.4-10.4); Monocytes # (auto) 0.42 K/uL (0.11-0.59); Monocytes % (auto) 7.7 %; Neutrophils # (auto) 3.46 K/uL (1.4-6.5); Neutrophils % (auto) 63.1 %; Platelet Count 193 K/uL (130-400); RDW Coefficient of Variation 15.5 % (11.5-14.5); RDW Standard Deviation 41.9 fL (36.4-46.3); Red Blood Count 4.48 M/uL (4.7-6.1); White Blood Count 5.48 K/uL (4.8-10.8)
[2019-11-26 10:28] LABS: Calcium 8.6 mg/dl (8.5-10.1); Magnesium 2.1 mg/dl (1.8-2.4)
[2019-11-26 10:29] LABS: Creatinine Clr Calc Pharmacy 9.2 ml/min; Est GFR (African American) 8.6; Est GFR (Non-African American) 7.4
[2019-11-26 10:30] LABS: BUN Creatinine Ratio 7.2 (10-20)
--- NOTE | 2019-11-26 10:46 | Orthopedic Consultation ---
Date of Consultation November 26, 2019 Assessment & Plan (1) Closed fracture of symphysis pubis: There is a minimal cortical irregularity around the pubic symphysis. He can be up and weightbearing as tolerated. There are no restrictions with regards to this fracture. If he is having a pain around the pubic symphysis that should resolve within about 4 weeks. He has no restrictions with regards to the pelvis and he should follow-up with Dr. Mcgee as instructed in his consultation for the L1 compression fracture. If he have any further questions please feel free to contact me personally on my cell phone at [phone]. Present on Admission?: Yes History of Present Illness Reason for Consultation: Cortical fracture pubic symphysis Attending Physician: Marilyn Terrell MD History of Present Illness Javier is a 84-year-old male who had a mechanical fall. He was complaining of back pain. He went to the emergency room and a CT scan was done of his chest abdomen and pelvis. The CAT scan of his lumbar spine did show a L1 compression fracture. The spine service was consulted for treatment with that. The CAT scan also showed this nondisplaced questionable fracture at the area the pubic symphysis. Orthopedics was consulted for treatment of this fracture. Allergies Allergy/AdvReac Type Severity Reaction Status Date / Time No Known Drug Allergies Allergy Unknown . 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) ASCVD (arteriosclerotic cardiovascular disease) (Chronic) BPH (benign prostatic hyperplasia) (Chronic) Bullous pemphigoid (Chronic) Dyslipidemia (Chronic) ESRD on dialysis (Chronic) HTN (hypertension) (Chronic) Pacemaker (Chronic) Renal calculi (Chronic) Surgical History Aortic valve replaced (Chronic) H/O inguinal hernia repair (Chronic) History of cataract surgery (Chronic) History of tonsillectomy (Chronic) Hx of CABG (Chronic) Family History Other Coronary heart disease Hypertension Stroke Social History Preferred Language: Pakistani Communication Ability: Effective Production Estimator Required: No Beliefs That Will Affect Care: Mandaeism Mandaeism Beliefs: Jehovah Witness, no blood transfusions marital status: Current Living Situation: Spouse current occupational status: retired Other Information That Helps Us Care for You: No Feels Safe at Home: Yes Safety Concerns: Feels Safe At This Time Smoking Status: Never smoker Do You Dip or Chew Tobacco: No ; Second Hand Exposure: No ; Tobacco Cessation Education Requested by Patient: No Hx Alcohol Use: No Hx Substance Use: No Review of Systems Review of Systems: All systems reviewed & are unremarkable except as noted in HPI & below Physical Exam Musculoskeletal: A formal physical exam was not performed. I was asked to review the CT scan and to give directions on weightbearing status. Results & Data ([facility]) Vital Signs (Past 12 Hours) Vital Signs Temp Pulse Pulse Resp BP BP Pulse Ox 11/26/19 10:20 72 96/81 L 11/26/19 10:11 36.9 C 80 80 125/70 11/26/19 07:15 76 11/26/19 07:05 36.5 C 78 19 135/64 95 11/26/19 04:56 36.6 C 90 20 138/67 91 11/26/19 00:38 69 11/26/19 00:08 36.6 C 87 19 110/[address] scan of the pelvis shows a very questionable cortical disruption around the pubic symphysis on the right side. There also appears to be an old healing inferior pubic rami fracture on the left. PG Care Time/CCT Total # of Minutes Spent Total Time Spent with Patient: Total time spent is greater than 50% in coordination of care (as documented) at patient's floor/unit and/or counseling patient: Coding Level of Care Code 68830 Initial Inpt Care Lvl 2 Diagnoses Closed fracture of symphysis pubis S32.591A Encounter type: initial encounter Laterality: right (1) Closed fracture of symphysis pubis Encounter type: initial encounter Laterality: right Qualified Code(s): S32.591A - Other specified fracture of right pubis, initial encounter for closed fracture
[2019-11-26] MEDS: HEPARIN SOD (PORCINE) 1000 UNIT/ML 10 ML VIAL IV SCH (12:10)
--- NOTE | 2019-11-26 15:44 | Hospitalist Progress Note ---
Date of Service November 26, 2019 Assessment & Plan (1) Status post fall: 84 year old male with history of ESRD, CAD/CABG, Bradycardia s/p PM, other problems noted below presenting with back pain, weakness after mechanical fall. (1) Ambulatory dysfunction: (2) Fall: (3) Closed compression fracture of L1 vertebra: (4) Closed fracture of Right symphysis pubis: Pt is 84 y/o M with PMH ESRD on HD on MWF schedule, CAD s/p CABG, symptomatic bradycardia s/p pacemaker, chronic anemia, hyperparathyroidism, BPH, bullous pemphigoid presented to ER with complaint of mechanical fall this morning. Denies any known LOC, dizziness, CP, SOB, palpitations. Pt complains of headache, posterior neck pain, mid back pain and pain to groin. CT HEAD: No acute intracranial abnormality. Age-related change. CT C-SPINE:Degenerative change. No acute process. CT L-SPINE:1. 30% compression deformity superior endplate of L1. 2. This shows no evidence for posterior displacement or compromise of the spinal canal. 3. Remainder the study is remarkable for generalized degenerative disc change and osteoporosis. CT PELVIS: 1. Nondisplaced cortical fracture right symphysis pubis. 2. Posttraumatic soft tissue contusion posterior and superior to the right symphysis pubis measuring 3 x 2 cm. 3. Old healed fracture left pubic ring LEFT SHOULDER XRAY: 1. No acute bony abnormality. 2. Deformity left humeral head and neck consistent with an old healed fracture. Appreciate input and recommendation from Ortho spine: no surgical intervention at this time Appreciate input and recommendation from Gen Ortho: Conservative management Oxycodone 8 hours as needed (caution with increasing dose as patient prone to confusion with higher doses) Tramadol q12h as needed Tylenol ordered q8h We will get PT and OT evaluation Denies any pain at rest Will likely need to go for short-term rehab (5) ESRD on dialysis: On Sunday hemodialysis schedule Appreciate Dr. 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 Baseline Hgb ~11 Current hemoglobin at baseline (8) Ischemic cardiomyopathy: CXR: Pulmonary vascular congestion -Euvolemic (9) Symptomatic bradycardia: S/P pacemaker Follows with Dr. Mcwilliams -Pacemaker interrogation: Appropriate pacing, recorded events show NSVT, no changes recommended (10) BPH (benign prostatic hyperplasia): -Continue tamsulosin (11) Bullous pemphigoid: Follows with dermatology outpatient. 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, patient's Zenia updated, she is requesting patient referred to [facility] Admission and Anticipated Discharge Date Admission Date: November 19, 2019 Subjective The patient was seen and examined in medical telemetry unit He complains to have some back pain at rest but has not been out of bed for a while Denies any chest pain and/or palpitation, any abdominal pain nausea no vomiting Review of Systems Review of Systems: All systems reviewed and are unremarkable except as noted below Musculoskeletal: + back pain Physical Exam Physical Exam: Lying in bed comfortably Constitutional: well developed and well nourished; no acute distress and not ill appearing Eyes: PERRL, conjunctivae normal, anicteric sclerae ENMT: external ear and nose normal, oropharynx normal Neck: trachea midline, no thyromegaly Respiratory: normal respiratory effort; no respiratory distress Auscultation: + diminished lung sounds; no crackles Cardiovascular: Rate/Rhythm: regular rate and regular rhythm Heart Sounds: no murmur Gastrointestinal (Abdomen): Inspection/Auscultation: abdomen normal to inspection and normal bowel sounds Percussion/Palpation: abdomen soft; abdomen nontender Musculoskeletal: No acute arthritis in any joints Neurologic: moves all extremities; no focal motor deficits Results & Data Results & Data ([facility]) Vital Signs (Past 12 Hours) Vital Signs Temp Pulse Pulse Resp BP BP Pulse Ox 11/26/19 15:25 36.5 C 84 12 112/66 94 11/26/19 14:11 36.5 C 90 90 116/68 116/68 11/26/19 14:00 104 H 97/80 L 11/26/19 13:40 61 94/64 L 11/26/19 13:20 85 101/61 11/26/19 13:00 87 119/64 11/26/19 12:40 85 114/62 11/26/19 12:12 80 119/66 05/13/20 12:00 81 104/66 11/26/19 11:40 84 113/66 11/26/19 11:20 85 100/64 11/26/19 11:00 82 103/61 11/26/19 10:40 80 101/57 L 11/26/19 10:20 72 96/81 L 11/26/19 10:11 36.9 C 80 80 125/70 11/26/19 07:15 76 11/26/19 07:05 36.5 C 78 19 135/64 95 11/26/19 04:56 36.6 C 90 20 138/67 91 Laboratory Results Short CBC 11/26/19 Range/Units 09:36 WBC 5.48 (4.8-10.8) K/uL Hgb 10.9 L (14.0-18.0) g/dL Hct 34.2 L (42-52) % Plt Count 193 (130-400) K/uL BMP 11/26/19 09:36 Sodium 135 L Potassium 4.0 Chloride 99 Carbon Dioxide 28 BUN 44 H Creatinine 6.26 H* Glucose 142 H Calcium 8.6 Medications Administered Current Inpatient Medications Acetaminophen (Tylenol) 650 mg PO Q4H PRN PRN Reason: Pain or Fever Stop: 12/19/19 19:37 Last Admin: 11/23/19 03:59 Dose: 650 mg Documented by: Acetaminophen (Tylenol) 650 mg PO Q8H [facility] Stop: 12/19/19 19:37 Last Admin: 11/26/19 14:32 Dose: Not Given Documented by: Aspirin (Ecotrin Ectab) 81 mg PO DAILY [facility] Stop: 12/20/19 08:59 Last Admin: 11/26/19 08:14 Dose: 81 mg Documented by: Atorvastatin Calcium (Lipitor) 40 mg PO DAILY [facility] Stop: 12/20/19 08:59 Last Admin: 11/26/19 08:14 Dose: 40 mg Documented by: Calcium Acetate (Phoslo) 1,334 mg PO TIDM [facility] Stop: 12/20/19 07:59 Last Admin: 11/26/19 14:32 Dose: Not Given Documented by: Nitroglycerin (Nitrostat) 0.4 mg SL UD PRN PRN Reason: Chest Pain Stop: 12/19/19 19:37 Oxycodone HCl (Roxicodone Immediate Rel) 5 mg PO Q8H PRN PRN Reason: Pain Stop: 12/06/19 12:12 Last Admin: 11/25/19 17:04 Dose: 5 mg Documented by: Polyethylene Glycol (Miralax Powder Packet) 17 gm PO DAILY PRN PRN Reason: Constipation Stop: 12/19/19 19:37 Tamsulosin HCl (Flomax) 0.4 mg PO HS [facility] Stop: 12/19/19 20:59 Last Admin: 11/25/19 20:57 Dose: 0.4 mg Documented by: Tramadol HCl (Ultram) 50 mg PO Q12H PRN PRN Reason: Pain Stop: 12/25/19 17:59 Last Admin: 11/25/19 20:56 Dose: 50 mg Documented by:
[2019-11-26] MEDS: TAMSULOSIN HCL 0.4 MG CAP PO SCH (20:20)
[2019-11-26] MEDS: OXYCODONE HCL IR 5 MG TAB (IMMEDIATE RELEASE) PO PRN (20:20)
[2019-11-27] MEDS: ACETAMINOPHEN 325 MG TAB PO SCH ×3 (06:11→21:04)
[2019-11-27] MEDS: OXYCODONE HCL IR 5 MG TAB (IMMEDIATE RELEASE) PO PRN ×2 (08:14→21:40)
[2019-11-27] MEDS: CALCIUM ACETATE 667 MG CAP/TAB PO SCH ×3 (08:14→16:45)
[2019-11-27] MEDS: ASPIRIN 81 MG ECTAB PO SCH (08:14)
[2019-11-27] MEDS: ATORVASTATIN 40 MG TAB PO SCH (08:14)
--- NOTE | 2019-11-27 09:46 | Nephrology Progress Note ---
Date of Service November 27, 2019 Assessment & Plan (1) ESRD on dialysis: No immediate change in therapy. Continue with his current medications. Dialysis is planned for tomorrow morning. Apparently, he has been accepted to [facility] effective November 30. He will probably need to spend 2 to 3 weeks there until he is capable of being ambulatory and returning home. We will continue with his routine dialysis treatments while here. We will continue with his erythropoietin with dialysis treatments. His iron stores appear to be reasonable with a ferritin in excess of 1000. However, his transferrin saturation is only 17%. We will hold off on giving him additional intravenous iron at this time. No other suggested intervention at this time. (2) ASCVD (arteriosclerotic cardiovascular disease): (3) Hx of CABG: (4) CHF (congestive heart failure): (5) Closed fracture of symphysis pubis: (6) Ambulatory dysfunction: Admission and Anticipated Discharge Date Admission Date: November 19, 2019 Subjective Mr. Poon says that he is feeling relatively well this morning. He still has somewhat of a depressed affect. He says that at rest he is not having much in the way of pain. He gets analgesics before he has any attempted physical therapy or movement. His dialysis treatment yesterday was apparently uneventful. However, he did have some relatively low blood pressures toward the end of his treatment. He denies having any problems with chest pain or unusual shortness of breath. He has no other symptoms of uremia or volume overload. He says that his appetite is only fair but that salads been for quite some time. He denies having any abdominal pain or true nausea. He has had no vomiting. He says that he has had bowel movements. He has no other symptomatology at this time. Physical Exam Physical Exam: On physical examination, Mr. Poon appears about the same as he has for the past few days. His blood pressure today is 122/65 with a pulse of 86 and regular. Respiratory rate is 16, his pulse ox 96% on room air at rest. He is afebrile (36.8). His skin shows normal skin turgor. He has no rash or infiltrative skin disease other than changes of venous stasis dermatitis on his distal lower. He has scars from prior surgical procedures including his midsternal scar from his coronary bypass surgery and a scar beneath the distal right clavicle of his pacemaker. He has a left upper arm AV fistula with a scar in the antecubital fossa from the creation of his AV fistula. He has multiple dialysis needle track villalobos over the fistula. He also has a scar from a left inguinal hernia he has no palpable lymphadenopathy. His head is normal. Eyes are grossly normal. The ocular fundi were not examined. Ears, nose, mouth and throat are unremarkable other than he is somewhat hard of hearing. His oral mucous membranes are moist. Dentition is in only fair repair. His neck is supple. There is no jugular venous distention, carotid bruit or thyromegaly. His chest is clear to auscultation. He has no wheezes, rales or rhonchi. Diaphragms are somewhat elevated related to his body habitus and positioning in bed. Cardiac exam shows a regular rhythm. He has normal bioprosthetic valve sounds. He has a soft systolic murmur at the base. There is also a murmur rad iating into his chest from his left upper arm AV fistula. His abdomen is a bit obese but nontender. There is no organomegaly or mass. I hear no abdominal bruits. Bowel sounds are present. Extremities show no cyanosis, clubbing or peripheral edema. Peripheral pulses are diminished but present. I hear no bruits over major blood vessels. He has some mild pain on movement of his right leg at the hip. His neurologic exam shows him to be oriented in 3 spheres. No lateralizing changes are noted. Results & Data ([facility]) Vital Signs (Past 12 Hours) Vital Signs Temp Pulse Pulse Pulse Resp BP Pulse Ox 11/27/19 07:27 36.8 C 86 16 122/65 96 11/27/19 07:17 81 11/27/19 03:05 36.7 C 80 18 116/68 94 11/26/19 22:36 36.6 C 86 16 114/70 95 Laboratory Results Laboratory Results - last 24 hr 11/26/19 11/26/19 11/26/19 09:36 09:36 16:55 WBC 5.48 RBC 4.48 L Hgb 10.9 L Hct 34.2 L MCV 76.3 L MCH 24.3 L MCHC 31.9 L RDW Std Deviation 41.9 RDW Coeff of Gill 15.5 H Plt Count 193 MPV 11.4 H Immature Gran % (Auto) 0.4 Neut % (Auto) 63.1 Lymph % (Auto) 21.5 Mckean % (Auto) 7.7 Eos % (Auto) 6.9 Baso % (Auto) 0.4 Immature Gran # (Auto) 0.02 Neut # (Auto) 3.46 Lymph # (Auto) 1.18 L Mckean # (Auto) 0.42 Eos # (Auto) 0.38 Baso # (Auto) 0.02 Sodium 135 L Potassium 4.0 Chloride 99 Carbon Dioxide 28 Anion Gap 9.0 BUN 44 H Creatinine 6.26 H* Est Cr Clr Drug Dosing 9.2 Est GFR ( Amer) 8.6 Est GFR (Non-Af Amer) 7.4 BUN/Creatinine Ratio 7.2 L Glucose 142 H Calcium 8.6 Magnesium 2.1 SARS-CoV-2 RNA (RT-PCR) Pending PG Care Time/CCT Total # of Minutes Spent Total Time Spent with Patient: Total time spent is greater than 50% in coordination of care (as documented) at patient's floor/unit and/or counseling patient: 40 min. Coding Level of Care Code 45266 Subseq Hosp Care Lvl 3 Diagnoses ESRD on dialysis N18.6; Z99.2 ASCVD (arteriosclerotic cardiovascular disease) I25.10 Hx of CABG Z95.1 CHF (congestive heart failure) I50.9 Heart failure chronicity: chronic Heart failure type: unspecified Closed fracture of symphysis pubis S32.591A Encounter type: initial encounter Laterality: right Ambulatory dysfunction R26.2 (1) CHF (congestive heart failure) Heart failure chronicity: chronic Heart failure type: unspecified Qualified Code(s): I50.9 - Heart failure, unspecified (2) Closed fracture of symphysis pubis Encounter type: initial encounter Laterality: right Qualified Code(s): S32.5 91A - Other specified fracture of right pubis, initial encounter for closed fracture
--- NOTE | 2019-11-27 14:43 | Hospitalist Progress Note ---
Date of Service November 27, 2019 Assessment & Plan (1) Status post fall: 84 year old male with history of ESRD, CAD/CABG, Bradycardia s/p PM, other problems noted below presenting with back pain, weakness after mechanical fall. (1) Ambulatory dysfunction: (2) Fall: (3) Closed compression fracture of L1 vertebra: (4) Closed fracture of Right symphysis pubis: Pt is 84 y/o M with PMH ESRD on HD on MWF schedule, CAD s/p CABG, symptomatic bradycardia s/p pacemaker, chronic anemia, hyperparathyroidism, BPH, bullous pemphigoid presented to ER with complaint of mechanical fall this morning. Denies any known LOC, dizziness, CP, SOB, palpitations. Pt complains of headache, posterior neck pain, mid back pain and pain to groin. CT HEAD: No acute intracranial abnormality. Age-related change. CT C-SPINE:Degenerative change. No acute process. CT L-SPINE:1. 30% compression deformity superior endplate of L1. 2. This shows no evidence for posterior displacement or compromise of the spinal canal. 3. Remainder the study is remarkable for generalized degenerative disc change and osteoporosis. CT PELVIS: 1. Nondisplaced cortical fracture right symphysis pubis. 2. Posttraumatic soft tissue contusion posterior and superior to the right symphysis pubis measuring 3 x 2 cm. 3. Old healed fracture left pubic ring LEFT SHOULDER XRAY: 1. No acute bony abnormality. 2. Deformity left humeral head and neck consistent with an old healed fracture. Appreciate input and recommendation from Ortho spine: no surgical intervention at this time Appreciate input and recommendation from Gen Ortho: Conservative management Oxycodone 8 hours as needed (caution with increasing dose as patient prone to confusion with higher doses) Tramadol q12h as needed Tylenol ordered q8h We will get PT and OT evaluation Denies any pain at rest Will likely need to go for short-term rehab COVID-19 test has been ordered as it is required by law before going to any facility for continued care Remains stable and likely be discharged when placement is finalized (5) ESRD on dialysis: On Sunday hemodialysis schedule Appreciate Dr. 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 Baseline Hgb ~11 Current hemoglobin at baseline (8) Ischemic cardiomyopathy: CXR: Pulmonary vascular congestion -Euvolemic (9) Symptomatic bradycardia: S/P pacemaker Follows with Dr. Mcwilliams -Pacemaker interrogation: Appropriate pacing, recorded events show NSVT, no changes recommended (10) BPH (benign prostatic hyperplasia): -Continue tamsulosin (11) Bullous pemphigoid: Follows with dermatology outpatient. 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 on board, patient's Zenia updated, she is requesting patient referred to [facility] Admission and Anticipated Discharge Date Admission Date: November 19, 2019 Subjective The patient was seen and examined in medical telemetry unit He complains to have some back pain at rest but has not been out of bed for a while Denies any chest pain and/or palpitation, any abdominal pain nausea no vomiting 11/27/2019 Patient was seen and examined in medical telemetry unit He remains stable Has been getting physical therapy for his lumbar and pelvic fracture Denies any problem with dialysis Review of Systems Review of Systems: All systems reviewed and are unremarkable except as noted below Musculoskeletal: + back pain Pelvic pain Physical Exam Physical Exam: Lying in bed comfortably Constitutional: well developed and well nourished; no acute distress and not ill appearing Eyes: PERRL, conjunctivae normal, anicteric sclerae ENMT: external ear and nose normal, oropharynx normal Neck: trachea midline, no thyromegaly Respiratory: normal respiratory effort; no respiratory distress Auscultation: + diminished lung sounds; no crackles Cardiovascular: Rate/Rhythm: regular rate and regular rhythm Heart Sounds: no murmur Gastrointestinal (Abdomen): Inspection/Auscultation: abdomen normal to inspection and normal bowel sounds Percussion/Palpation: abdomen soft; abdomen nontender Musculoskeletal: Pain in pelvis with movement of the legs Neurologic: moves all extremities; no focal motor deficits Results & Data Results & Data ([facility]) Vital Signs (Past 12 Hours) Vital Signs Temp Pulse Pulse Pulse Resp BP Pulse Ox 11/27/19 11:04 36.6 C 84 16 102/56 L 98 11/27/19 07:27 36.8 C 86 16 122/65 96 11/27/19 07:17 81 11/27/19 03:05 36.7 C 80 18 116/68 94 Medications Administered Current Inpatient Medications Acetaminophen (Tylenol) 650 mg PO Q4H PRN PRN Reason: Pain or Fever Stop: 12/19/19 19:37 Last Admin: 11/23/19 03:59 Dose: 650 mg Documented by: Acetaminophen (Tylenol) 650 mg PO Q8H [facility] Stop: 12/19/19 19:37 Last Admin: 11/27/19 13:46 Dose: 650 mg Documented by: Aspirin (Ecotrin Ectab) 81 mg PO DAILY [facility] Stop: 12/20/19 08:59 Last Admin: 11/27/19 08:14 Dose: 81 mg Documented by: Atorvastatin Calcium (Lipitor) 40 mg PO DAILY [facility] Stop: 12/20/19 08:59 Last Admin: 11/27/19 08:14 Dose: 40 mg Documented by: Calcium Acetate (Phoslo) 1,334 mg PO TIDM [facility] Stop: 12/20/19 07:59 Last Admin: 11/27/19 13:45 Dose: 1,334 mg Documented by: Epoetin Andrei (Procrit) 10,000 units IV TODAY@0700 [facility] Stop: 11/28/19 18:00 Heparin Sodium (Porcine) (Heparin Iv Bolus) 3,000 units IV ONE ONE Stop: 11/28/19 07:01 Heparin Sodium (Porcine) (Heparin Iv Bolus) 1,000 units IV Q1H [facility] Stop: 11/28/19 09:01 Sodium Chloride (Nss 1000ml) 1,000 mls @ 0 mls/hr IV .Q0M PRN PRN Reason: For Hemodialysis Use ONLY Stop: 11/28/19 12:59 Nitroglycerin (Nitrostat) 0.4 mg SL UD PRN PRN Reason: Chest Pain Stop: 12/19/19 19:37 Oxycodone HCl (Roxicodone Immediate Rel) 5 mg PO Q8H PRN PRN Reason: Pain Stop: 12/06/19 12:12 Last Admin: 11/27/19 08:14 Dose: 5 mg Documented by: Polyethylene Glycol (Miralax Powder Packet) 17 gm PO DAILY PRN PRN Reason: Constipation Stop: 12/19/19 19:37 Tamsulosin HCl (Flomax) 0.4 mg PO HS [facility] Stop: 06/05/20 20:59 Last Admin: 11/26/19 20:20 Dose: 0.4 mg Documented by: Tramadol HCl (Ultram) 50 mg PO Q12H PRN PRN Reason: Pain Stop: 12/25/19 17:59 Last Admin: 11/25/19 20:56 Dose: 50 mg Documented by:
[2019-11-27] MEDS: TAMSULOSIN HCL 0.4 MG CAP PO SCH (20:43)
[2019-11-28] MEDS: ACETAMINOPHEN 325 MG TAB PO SCH ×3 (06:16→20:58)
[2019-11-28] MEDS ORDERED: EPOETIN ALFA 10,000 UNITS/ML VIAL IV SCH (07:00)
[2019-11-28] MEDS ORDERED: HEPARIN SOD (PORCINE) 1000 UNIT/ML 10 ML VIAL IV ONE (07:00)
[2019-11-28] MEDS ORDERED: SODIUM CHLORIDE 0.9% 1000ML 1,000 ML IV PRN (07:00)
[2019-11-28] MEDS: ATORVASTATIN 40 MG TAB PO SCH (08:17)
[2019-11-28] MEDS: ASPIRIN 81 MG ECTAB PO SCH (08:17)
[2019-11-28] MEDS: CALCIUM ACETATE 667 MG CAP/TAB PO SCH ×3 (08:17→17:23)
--- NOTE | 2019-11-28 09:58 | Dialysis Progress Note ---
Date of Service November 28, 2019 Assessment & Plan (1) ESRD on dialysis: Mr. Poon seems to be stable.Certainly he is stable from the standpoint of his end-stage renal disease. His dialysis has been going well. He has no symptoms or other indications of uremia or volume overload. His pain seems to be somewhat improved. I have no recommended changes for now. Continue with his routine diet and medications. The current plan is for him to be transferred to [facility] next week. At that point, he will be dialyzed at [facility] in [place].His next scheduled dialysis will be November 30. (2) ASCVD (arteriosclerotic cardiovascular disease): (3) Hx of CABG: Admission and Anticipated Discharge Date Admission Date: November 19, 2019 Subjective Mr. Poon says that he is feeling relatively well this morning. He was seen during his dialysis treatment. He denied symptoms of chest pain or shortness of breath. He says that his appetite is reasonably good. He has had no definite symptoms of uremia or volume overload. He seems to be in less pain. He does have an intermittent hacking cough that is been present for some time. His cough is nonproductive and not associated with any other symptoms. He has been afebrile. He is getting physical therapy and seems to tolerate it somewhat better. His review of systems is otherwise unremarkable. Physical Exam Physical Exam: On physical examination, Mr. Poon appears relatively well and has less of a depressed affect than was noted yesterday. His vital signs today show a blood pressure of 111/61 with a pulse of 85 and regular. His respiratory rate was 20 with a pulse ox of 94% on room air. He is afebrile (36 degrees). His skin shows normal skin turgor. He has no rash or infiltrative skin disease other than some changes of mild venous stasis dermatitis on his distal lower extremities. He has scars from prior surgical procedures including a midsternal scar from coronary bypass surgery and a scar beneath the distal right clavicle from his pacemaker. Additionally, he has a left upper arm scarIn the antecubital fossa from the creation of his AV fistula. He has multiple dialysis needle track villalobos over the fistula.He also has a scar from a left inguinal herniorrhaphy.He has no palpable lymphadenopathy.His head is normal. Eyes are grossly normal.The ocular fundi were not examined. Ears, nose, mouth and throat are unremarkable although he is somewhat hard of hearing. Dentition is in only fair repair. His oral mucous membranes are moist.His neck is supple. He has no jugular venous distentionOr thyromegaly. He does have a soft carotid murmur transmitted from a basilar heart murmur.His chest is clear to auscultation. He has no wheezes, rales or rhonchi. His pacemaker is palpable beneath the distal right clavicle.Cardiac exam shows a regular rhythm. He has normal bioprosthetic valve sounds. He has a grade 2/6 systolic murmurThe upper left sternal border and base but also heard at the apex. His abdomen is somewhat obese but nontender. He has no organomegaly or mass.Extremities show no cyanosis, club cortez or peripheral edema. He has some pain on motion of his right hip.There is minimal pain over the symphysis pubis.His AV fistula functions well in the left upper arm.Peripheral pulses are diminished in his feet.His neurologic exam shows no asterixis. He has no lateralizing neurologic changes. Results & Data ([facility]) Vital Signs (Past 12 Hours) Vital Signs Temp Pulse Pulse Pulse Resp BP Pulse Ox 11/28/19 07:37 36 C L 85 20 111/61 94 11/28/19 05:18 88 11/28/19 04:00 36.8 C 81 20 120/67 95 11/27/19 23:42 36.8 C 80 20 106/63 96 [facility] Procedure Codes (Charges) Renal/Urologic Renal/Urologic: 90522 Hemodialysis, One Evaluation Coding Level of Care Code 98991 Subseq [facility] Care [facility] 3 Diagnoses ESRD on dialysis N18.6; Z99.2 ASCVD (arteriosclerotic cardiovascular disease) I25.10 Hx of CABG Z95.1 CPT Codes Renal/Urologic - Renal/Urologic: 53984 Hemodialysis, One Evaluation ([id number])
[2019-11-28] MEDS: HEPARIN SOD (PORCINE) 1000 UNIT/ML 10 ML VIAL IV SCH ×3 (10:30→11:27)
--- NOTE | 2019-11-28 13:43 | Hospitalist Progress Note ---
Date of Service November 28, 2019 Assessment & Plan (1) Status post fall: 84 year old male with history of ESRD, CAD/CABG, Bradycardia s/p PM, other problems noted below presenting with back pain, weakness after mechanical fall. (1) Ambulatory dysfunction: (2) Fall: (3) Closed compression fracture of L1 vertebra: (4) Closed fracture of Right symphysis pubis: Pt is 84 y/o M with PMH ESRD on HD on MWF schedule, CAD s/p CABG, symptomatic bradycardia s/p pacemaker, chronic anemia, hyperparathyroidism, BPH, bullous pemphigoid presented to ER with complaint of mechanical fall this morning. Denies any known LOC, dizziness, CP, SOB, palpitations. Pt complains of headache, posterior neck pain, mid back pain and pain to groin. CT HEAD: No acute intracranial abnormality. Age-related change. CT C-SPINE:Degenerative change. No acute process. CT L-SPINE:1. 30% compression deformity superior endplate of L1. 2. This shows no evidence for posterior displacement or compromise of the spinal canal. 3. Remainder the study is remarkable for generalized degenerative disc change and osteoporosis. CT PELVIS: 1. Nondisplaced cortical fracture right symphysis pubis. 2. Posttraumatic soft tissue contusion posterior and superior to the right symphysis pubis measuring 3 x 2 cm. 3. Old healed fracture left pubic ring LEFT SHOULDER XRAY: 1. No acute bony abnormality. 2. Deformity left humeral head and neck consistent with an old healed fracture. Appreciate input and recommendation from Ortho spine: no surgical intervention at this time Appreciate input and recommendation from Gen Ortho: Conservative management Oxycodone 8 hours as needed (caution with increasing dose as patient prone to confusion with higher doses) Tramadol q12h as needed Tylenol ordered q8h We will get PT and OT evaluation Denies any pain at rest Will likely need to go for short-term rehab COVID-19 test has been ordered as it is required by law before going to any facility for continued care Remains stable and likely be discharged when placement is finalized Remains a stable and denies any significant symptoms Likely to be discharged on Sunday to a skilled care facility (5) ESRD on dialysis: On Sunday hemodialysis schedule Appreciate Dr. 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 Baseline Hgb ~11 Current hemoglobin at baseline (8) Ischemic cardiomyopathy: CXR: Pulmonary vascular congestion -Euvolemic (9) Symptomatic bradycardia: S/P pacemaker Follows with Dr. Mcwilliams -Pacemaker interrogation: Appropriate pacing, recorded events show NSVT, no ch anges recommended (10) BPH (benign prostatic hyperplasia): -Continue tamsulosin (11) Bullous pemphigoid: Follows with dermatology outpatient. Past history of needing oral prednisone -Not currently on oral steroids DVT Prophylaxis -SCDs Anticipate d/c to SNF when accepted COVID-19 test has been ordered insurance agency sales manager on board, patient's Zenia updated, she is requesting patient referred to [facility] Admission and Anticipated Discharge Date Admission Date: November 19, 2019 Anticipated date of discharge: 12/01/19 Subjective The patient was seen and examined in medical telemetry unit He complains to have some back pain at rest but has not been out of bed for a while Denies any chest pain and/or palpitation, any abdominal pain nausea no vomiting 11/27/2019 Patient was seen and examined in medical telemetry unit He remains stable Has been getting physical therapy for his lumbar and pelvic fracture Denies any problem with dialysis 11/28/2019 The patient was seen and examined in medical floor He denies any acute symptoms and remains stable His pain is controlled and has been getting physical therapy Review of Systems Review of Systems: All systems reviewed and are unremarkable except as noted below Musculoskeletal: + back pain Pelvic pain Physical Exam Physical Exam: Lying in bed comfortably Constitutional: well developed and well nourished; no acute distress and not ill appearing Eyes: PERRL, conjunctivae normal, anicteric sclerae ENMT: external ear and nose normal, oropharynx normal Neck: trachea midline, no thyromegaly Respiratory: normal respiratory effort; no respiratory distress Auscultation: + diminished lung sounds; no crackles Cardiovascular: Rate/Rhythm: regular rate and regular rhythm Heart Sounds: no murmur Gastrointestinal (Abdomen): Inspection/Auscultation: abdomen normal to inspection and normal bowel sounds Percussion/Palpation: abdomen soft; abdomen nontender Neurologic: moves all extremities; no focal motor deficits Results & Data Results & Data ([facility]) Vital Signs (Past 12 Hours) Vital Signs Temp Pulse Pulse Pulse Resp BP BP 11/28/19 13:00 71 125/65 11/28/19 12:40 76 120/67 11/28/19 12:20 71 121/66 11/28/19 12:00 77 122/69 11/28/19 11:40 58 L 109/45 L 11/28/19 11:20 72 131/60 11/28/19 11:00 76 105/57 L 11/28/19 10:40 76 80/48 L 11/28/19 10:29 76 88/46 L 11/28/19 10:20 68 77/44 L 11/28/19 10:08 68 11/28/19 10:00 81 84/32 L 11/28/19 09:40 84 80/38 L 11/28/19 09:22 42 L 102/30 L 11/28/19 09:15 36.6 C 81 63 11/28/19 07:37 36 C L 85 20 111/61 11/28/19 05:18 88 11/28/19 04:00 36.8 C 81 20 120/67 Pulse Ox 11/28/19 13:00 11/28/19 12:40 11/28/19 12:20 11/28/19 12:00 11/28/19 11:40 11/28/19 11:20 11/28/19 11:00 11/28/19 10:40 11/28/19 10:29 11/28/19 10:20 11/28/19 10:08 11/28/19 10:00 11/28/19 09:40 11/28/19 09:22 11/28/19 09:15 11/28/19 07:37 94 11/28/19 05:18 11/28/19 04:00 95 Medications Administered Current Inpatient Medications Acetaminophen (Tylenol) 650 mg PO Q4H PRN PRN Reason: Pain or Fever Stop: 12/19/19 19:37 Last Admin: 11/23/19 03:59 Dose: 650 mg Documented by: Acetaminophen (Tylenol) 650 mg PO Q8H [facility] Stop: 12/19/19 19:37 Last Admin: 11/28/19 06:16 Dose: 650 mg Documented by: Aspirin (Ecotrin Ectab) 81 mg PO DAILY [facility] Stop: 12/20/19 08:59 Last Admin: 11/28/19 08:17 Dose: 81 mg Documented by: Atorvastatin Calcium (Lipitor) 40 mg PO DAILY [facility] Stop: 12/20/19 08:59 Last Admin: 11/28/19 08:17 Dose: 40 mg Documented by: Calcium Acetate (Phoslo) 1,334 mg PO TIDM [facility] Stop: 12/20/19 07:59 Last Admin: 11/28/19 13:28 Dose: 1,334 mg Documented by: Epoetin Andrei (Procrit) 10,000 units IV TODAY@0700 [facility] Stop: 11/28/19 18:00 Last Admin: 11/28/19 10:09 Dose: 10,000 units Documented by: Nitroglycerin (Nitrostat) 0.4 mg SL UD PRN PRN Reason: Chest Pain Stop: 12/19/19 19:37 Oxycodone HCl (Roxicodone Immediate Rel) 5 mg PO Q8H PRN PRN Reason: Pain Stop: 12/06/19 12:12 Last Admin: 11/27/19 21:40 Dose: 5 mg Documented by: Polyethylene Glycol (Miralax Powder Packet) 17 gm PO DAILY PRN PRN Reason: Constipation Stop: 12/19/19 19:37 Tamsulosin HCl (Flomax) 0.4 mg PO HS [facility] Stop: 12/19/19 20:59 Last Admin: 11/27/19 20:43 Dose: 0.4 mg Documented by: Tramadol HCl (Ultram) 50 mg PO Q12H PRN PRN Reason: Pain Stop: 12/25/19 17:59 Last Admin: 11/25/19 20:56 Dose: 50 mg Documented by:
[2019-11-28] MEDS: TAMSULOSIN HCL 0.4 MG CAP PO SCH (20:58)
[2019-11-28] MEDS: OXYCODONE HCL IR 5 MG TAB (IMMEDIATE RELEASE) PO PRN (23:09)
[2019-11-29] MEDS: ACETAMINOPHEN 325 MG TAB PO SCH ×3 (04:38→21:29)
[2019-11-29] MEDS: CALCIUM ACETATE 667 MG CAP/TAB PO SCH ×3 (08:02→17:08)
[2019-11-29] MEDS: ASPIRIN 81 MG ECTAB PO SCH (08:02)
[2019-11-29] MEDS: ATORVASTATIN 40 MG TAB PO SCH (08:02)
--- NOTE | 2019-11-29 11:38 | Nephrology Progress Note ---
Date of Service November 29, 2019 Assessment & Plan (1) ESRD on dialysis: BP and volume status are appropriate. Low BP complicated UF with treatment yesterday. I/Os acceptable. No additional dialysis today. Next treatment anticipated for Sunday. AVF with good thrill and bruit. AVF has been functioning well. Medications are appropriately dosed for HD. Remains on Phoslo QAC for hyperphosphatemia. (2) ASCVD (arteriosclerotic cardiovascular disease): (3) Hx of CABG: Admission and Anticipated Discharge Date Admission Date: November 19, 2019 Subjective Intradialytic hypotension with HD yesterday. Net positive fluid balance. Javier otherwise tolerated HD well. He feels well this morning. Denies dyspnea. Appetite is good. Review of Systems Review of Systems: All systems reviewed & are unremarkable except as noted in HPI & below Physical Exam Physical Exam: Limited due to COVID 19 panemic Constitutional: well developed; no acute distress Eyes: + anicteric sclerae ENMT: Ears: no hearing impairment Neck: normal visual inspection and trachea midline Respiratory: normal respiratory effort Auscultation: lungs clear to auscultation bilaterally Cardiovascular: Rate/Rhythm: regular rate Heart Sounds: + murmur Vessels: no JVD Extremities: + AV fistula; no edema Gastrointestinal (Abdomen): Inspection/Auscultation: + abdomen distended Percussion/Palpation: abdomen soft Musculoskeletal: Extremities: no cyanosis and no clubbing Skin: normal turgor Neurologic: Motor/Sensory: no tremor and no asterixis Results & Data ([facility]) Vital Signs (Past 12 Hours) Vital Signs Temp Pulse Pulse Pulse Resp BP Pulse Ox 11/29/19 09:29 80 11/29/19 07:19 36.6 C 71 16 115/65 98 11/29/19 04:15 36.7 C 91 H 18 131/70 97 11/29/19 00:27 69 Laboratory Results Laboratory Results - last 24 hr 11/26/19 11/26/19 16:55 16:55 SARS-CoV-2 RNA (RT-PCR) NEGATIVE Ref Lab Test Result Cancelled PG Care Time/CCT Total # of Minutes Spent Total Time Spent with Patient: Total time spent is greater than 50% in grievance and appeals coordinator rdination of care (as documented) at patient's floor/unit and/or counseling patient: Coding Level of Care Code 96265 Subseq Hosp Care Lvl 3 Diagnoses ESRD on dialysis N18.6; Z99.2 ASCVD (arteriosclerotic cardiovascular disease) I25.10 Hx of CABG Z95.1
--- NOTE | 2019-11-29 13:29 | Hospitalist Progress Note ---
Date of Service November 29, 2019 Assessment & Plan (1) Status post fall: 84 year old male with history of ESRD, CAD/CABG, Bradycardia s/p PM, other problems noted below presenting with back pain, weakness after mechanical fall. (1) Ambulatory dysfunction: (2) Fall: (3) Closed compression fracture of L1 vertebra: (4) Closed fracture of Right symphysis pubis: Pt is 84 y/o M with PMH ESRD on HD on MWF schedule, CAD s/p CABG, symptomatic bradycardia s/p pacemaker, chronic anemia, hyperparathyroidism, BPH, bullous pemphigoid presented to ER with complaint of mechanical fall this morning. Denies any known LOC, dizziness, CP, SOB, palpitations. Pt complains of headache, posterior neck pain, mid back pain and pain to groin. CT HEAD: No acute intracranial abnormality. Age-related change. CT C-SPINE:Degenerative change. No acute process. CT L-SPINE:1. 30% compression deformity superior endplate of L1. 2. This shows no evidence for posterior displacement or compromise of the spinal canal. 3. Remainder the study is remarkable for generalized degenerative disc change and osteoporosis. CT PELVIS: 1. Nondisplaced cortical fracture right symphysis pubis. 2. Posttraumatic soft tissue contusion posterior and superior to the right symphysis pubis measuring 3 x 2 cm. 3. Old healed fracture left pubic ring LEFT SHOULDER XRAY: 1. No acute bony abnormality. 2. Deformity left humeral head and neck consistent with an old healed fracture. Appreciate input and recommendation from Ortho spine: no surgical intervention at this time Appreciate input and recommendation from Gen Ortho: Conservative management Oxycodone 8 hours as needed (caution with increasing dose as patient prone to confusion with higher doses) Tramadol q12h as needed Tylenol ordered q8h We will get PT and OT evaluation Denies any pain at rest Will likely need to go for short-term rehab COVID-19 test has been ordered as it is required by law before going to any facility for continued care Remains stable and likely be discharged when placement is finalized Remains a stable and denies any significant symptoms Likely to be discharged on Sunday to a skilled care facility (5) ESRD on dialysis: On Sunday hemodialysis schedule Appreciate Dr. 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 Baseline Hgb ~11 Current hemoglobin at baseline (8) Ischemic cardiomyopathy: CXR: Pulmonary vascular congestion -Euvolemic (9) Symptomatic bradycardia: S/P pacemaker Follows with Dr. Mcwilliams -Pacemaker interrogation: Appropriate pacing, recorded events show NSVT, no ch anges recommended (10) BPH (benign prostatic hyperplasia): -Continue tamsulosin (11) Bullous pemphigoid: Follows with dermatology outpatient. Past history of needing oral prednisone -Not currently on oral steroids DVT Prophylaxis -SCDs Anticipate d/c to SNF when accepted manager meat on board, patient's Zenia updated, she is requesting patient referred to [facility] COVID-19 test has been negative Will be transferred to [facility] on Sunday Admission and Anticipated Discharge Date Admission Date: November 19, 2019 Anticipated date of discharge: 12/01/19 Subjective The patient was seen and examined in medical telemetry unit He complains to have some back pain at rest but has not been out of bed for a while Denies any chest pain and/or palpitation, any abdominal pain nausea no vomiting 11/27/2019 Patient was seen and examined in medical telemetry unit He remains stable Has been getting physical therapy for his lumbar and pelvic fracture Denies any problem with dialysis 11/28/2019 The patient was seen and examined in medical floor He denies any acute symptoms and remains stable His pain is controlled and has been getting physical therapy 11/29/2019 The patient was seen and examined in medical floor He remained stable denies any pain at rest Has been getting his usual dialysis Awaiting to be transferred to skilled care facility on Sunday Review of Systems Review of Systems: All systems reviewed and are unremarkable except as noted below Musculoskeletal: + back pain Pelvic pain Physical Exam Physical Exam: Lying in bed comfortably Constitutional: well developed and well nourished; no acute distress and not ill appearing Eyes: PERRL, conjunctivae normal, anicteric sclerae ENMT: external ear and nose normal, oropharynx normal Neck: trachea midline, no thyromegaly Respiratory: normal respiratory effort; no respiratory distress Auscultation: + diminished lung sounds; no crackles Cardiovascular: Rate/Rhythm: regular rate and regular rhythm Heart Sounds: no murmur Gastrointestinal (Abdomen): Inspection/Auscultation: abdomen normal to inspection and normal bowel sounds Percussion/Palpation: abdomen soft; abdomen nontender Musculoskeletal: No acute arthritis in any joints Neurologic: moves all extremities; no focal motor deficits Alert, awake and oriented x3 Lymphatic: no cervical or axillary lymphadenopathy Results & Data Results & Data ([facility]) Vital Signs (Past 12 Hours) Vital Signs Temp Pulse Pulse Pulse Resp BP Pulse Ox 11/29/19 09:29 80 11/29/19 07:19 36.6 C 71 16 115/65 98 11/29/19 04:15 36.7 C 91 H 18 131/70 97 Medications Administered Current Inpatient Medications Acetaminophen (Tylenol) 650 mg PO Q4H PRN PRN Reason: Pain or Fever Stop: 12/19/19 19:37 Last Admin: 11/23/19 03:59 Dose: 650 mg Documented by: Acetaminophen (Tylenol) 650 mg PO Q8H [facility] Stop: 12/19/19 19:37 Last Admin: 11/29/19 04:38 Dose: 650 mg Documented by: Aspirin (Ecotrin Ectab) 81 mg PO DAILY [facility] Stop: 12/20/19 08:59 Last Admin: 11/29/19 08:02 Dose: 81 mg Documented by: Atorvastatin Calcium (Lipitor) 40 mg PO DAILY [facility] Stop: 12/20/19 08:59 Last Admin: 11/29/19 08:02 Dose: 40 mg Documented by: Calcium Acetate (Phoslo) 1,334 mg PO TIDM [facility] Stop: 12/20/19 07:59 Last Admin: 11/29/19 12:33 Dose: 1,334 mg Documented by: Nitroglycerin (Nitrostat) 0.4 mg SL UD PRN PRN Reason: Chest Pain Stop: 12/19/19 19:37 Oxycodone HCl (Roxicodone Immediate Rel) 5 mg PO Q8H PRN PRN Reason: Pain Stop: 12/06/19 12:12 Last Admin: 11/28/19 23:09 Dose: 5 mg Documented by: Polyethylene Glycol (Miralax Powder Packet) 17 gm PO DAILY PRN PRN Reason: Constipation Stop: 12/19/19 19:37 Last Admin: 11/29/19 06:16 Dose: 17 gm Documented by: Tamsulosin HCl (Flomax) 0.4 mg PO HS [facility] Stop: 12/19/19 20:59 Last Admin: 11/28/19 20:58 Dose: 0.4 mg Documented by: Tramadol HCl (Ultram) 50 mg PO Q12H PRN PRN Reason: Pain Stop: 12/25/19 17:59 Last Admin: 11/25/19 20:56 Dose: 50 mg Documented by:
[2019-11-29] MEDS: OXYCODONE HCL IR 5 MG TAB (IMMEDIATE RELEASE) PO PRN (21:29)
[2019-11-29] MEDS: TAMSULOSIN HCL 0.4 MG CAP PO SCH (21:29)
[2019-11-30] MEDS: ACETAMINOPHEN 325 MG TAB PO SCH ×3 (05:40→21:04)
[2019-11-30] MEDS: ATORVASTATIN 40 MG TAB PO SCH (08:15)
[2019-11-30] MEDS: ASPIRIN 81 MG ECTAB PO SCH (08:15)
[2019-11-30] MEDS: CALCIUM ACETATE 667 MG CAP/TAB PO SCH ×3 (08:15→17:35)
--- NOTE | 2019-11-30 11:39 | Nephrology Progress Note ---
Date of Service November 30, 2019 Assessment & Plan (1) ESRD on dialysis: BP and volume status are appropriate. LI/Os acceptable. Orders for HD tomorrow AM reviewed with HD nurse today. Next treatment anticipated tomorrow AM. AVF with good thrill and bruit. Qb has been appropriate and access pressures normal. Medications are appropriately dosed for HD. Remains on Phoslo QAC for hyperphosphatemia. (2) ASCVD (arteriosclerotic cardiovascular disease): (3) Hx of CABG: Admission and Anticipated Discharge Date Admission Date: November 19, 2019 Anticipated date of discharge: 12/01/19 Subjective No acute events overnight. Mr. Poon feels well today. He denies significant pain. He is breathing comfortably. Appetite is good. Review of Systems Review of Systems: All systems reviewed & are unremarkable except as noted in HPI & below Physical Exam Physical Exam: Deferred due to COVID 19 pandemic Constitutional: no acute distress Cardiovascular: Extremities: + AV fistula Results & Data ([facility]) Vital Signs (Past 12 Hours) Vital Signs Temp Pulse Pulse Resp BP Pulse Ox 11/30/19 11:20 36.7 C 76 18 128/79 98 11/30/19 07:19 36.4 C L 80 16 104/62 97 11/30/19 07:08 82 11/30/19 04:18 36.5 C 72 16 127/66 93 11/29/19 23:47 36.5 C 80 18 127/70 95 11/29/19 23:40 87 PG Care Time/CCT Total # of Minutes Spent Total Time Spent with Patient: Total time spent is greater than 50% in coordination of care (as documented) at patient's floor/unit and/or counseling patient: Coding Level of Care Code 51386 Subseq Hosp Care Lvl 3 Diagnoses ESRD on dialysis N18.6; Z99.2 ASCVD (arteriosclerotic cardiovascular disease) I25.10 Hx of CABG Z95.1
[2019-11-30] MEDS ORDERED: bisacodyL 10 MG SUPP PR STA (11:50)
--- NOTE | 2019-11-30 11:54 | Hospitalist Progress Note ---
Date of Service November 30, 2019 Assessment & Plan (1) Status post fall: 84 year old male with history of ESRD, CAD/CABG, Bradycardia s/p PM, other problems noted below presenting with back pain, weakness after mechanical fall. (1) Ambulatory dysfunction: (2) Fall: (3) Closed compression fracture of L1 vertebra: (4) Closed fracture of Right symphysis pubis: Pt is 84 y/o M with PMH ESRD on HD on MWF schedule, CAD s/p CABG, symptomatic bradycardia s/p pacemaker, chronic anemia, hyperparathyroidism, BPH, bullous pemphigoid presented to ER with complaint of mechanical fall this morning. Denies any known LOC, dizziness, CP, SOB, palpitations. Pt complains of headache, posterior neck pain, mid back pain and pain to groin. CT HEAD: No acute intracranial abnormality. Age-related change. CT C-SPINE:Degenerative change. No acute process. CT L-SPINE:1. 30% compression deformity superior endplate of L1. 2. This shows no evidence for posterior displacement or compromise of the spinal canal. 3. Remainder the study is remarkable for generalized degenerative disc change and osteoporosis. CT PELVIS: 1. Nondisplaced cortical fracture right symphysis pubis. 2. Posttraumatic soft tissue contusion posterior and superior to the right symphysis pubis measuring 3 x 2 cm. 3. Old healed fracture left pubic ring LEFT SHOULDER XRAY: 1. No acute bony abnormality. 2. Deformity left humeral head and neck consistent with an old healed fracture. Appreciate input and recommendation from Ortho spine: no surgical intervention at this time Appreciate input and recommendation from Gen Ortho: Conservative management Oxycodone 8 hours as needed (caution with increasing dose as patient prone to confusion with higher doses) Tramadol q12h as needed Tylenol ordered q8h We will get PT and OT evaluation Denies any pain at rest Will likely need to go for short-term rehab COVID-19 test has been ordered as it is required by law before going to any facility for continued care Remains stable and likely be discharged when placement is finalized Remains a stable and denies any significant symptoms Likely to be discharged on Sunday to a skilled care facility Constipation Has not had any bowel movement for the last 5 days Will try Dulcolax suppository Fleet enema if Dulcolax does not work (5) ESRD on dialysis: On Sunday hemodialysis schedule Appreciate Dr. 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 Baseline Hgb ~11 Current hemoglobin at baseline (8) Ischemic cardiomyopathy: CXR: Pulmonary vascular congestion -Euvolemic (9) Symptomatic bradycardia: S/P pacemaker Follows with Dr. Mcwilliams -Pacemaker interrogation: Appropriate pacing, recorded events show NSVT, no changes recommended (10) BPH (benign prostatic hyperplasia): -Continue tamsulosin (11) Bullous pemphigoid: Follows with dermatology outpatient. 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, patient's Zenia updated, she is requesting patient referred to [facility] COVID-19 test has been negative Will be transferred to [facility] on Sunday Admission and Anticipated Discharge Date Admission Date: November 19, 2019 Anticipated date of discharge: 12/01/19 Subjective The patient was seen and examined in medical telemetry unit He complains to have some back pain at rest but has not been out of bed for a while Denies any chest pain and/or palpitation, any abdominal pain nausea no vomiting 11/27/2019 Patient was seen and examined in medical telemetry unit He remains stable Has been getting physical therapy for his lumbar and pelvic fracture Denies any problem with dialysis 11/28/2019 The patient was seen and examined in medical floor He denies any acute symptoms and remains stable His pain is controlled and has been getting physical therapy 11/29/2019 The patient was seen and examined in medical floor He remained stable denies any pain at rest Has been getting his usual dialysis Awaiting to be transferred to skilled care facility on Sunday11/30/2019 Patient was seen and examined in medical floor He complains to have some abdominal discomfort and has not has a bowel movement for the last 5 days He denies any abdominal pain, any nausea and or vomiting His pain has been under control Review of Systems Review of Systems: All systems reviewed and are unremarkable except as noted below Musculoskeletal: + back pain Pelvic pain Physical Exam Physical Exam: Lying in bed comfortably Constitutional: well developed and well nourished; no acute distress and not ill appearing Eyes: PERRL, conjunctivae normal, anicteric sclerae ENMT: external ear and nose normal, oropharynx normal Neck: trachea midline, no thyromegaly Respiratory: normal respiratory effort; no respiratory distress Auscultation: + diminished lung sounds; no crackles Cardiovascular: Rate/Rhythm: regular rate and regular rhythm Heart Sounds: no murmur Gastrointestinal (Abdomen): Inspection/Auscultation: abdomen normal to inspection and normal bowel sounds Percussion/Palpation: abdomen soft; abdomen nontender Musculoskeletal: Pelvic pain with movement of the lower extremities and hip joint Neurologic: moves all extremities; no focal motor deficits Lymphatic: no cervical or axillary lymphadenopathy Results & Data Results & Data ([facility]) Vital Signs (Past 12 Hours) Vital Signs Temp Pulse Pulse Resp BP Pulse Ox 11/30/19 11:20 36.7 C 76 18 128/79 98 11/30/19 07:19 36.4 C L 80 16 104/62 97 11/30/19 07:08 82 11/30/19 04:18 36.5 C 72 16 127/66 93 Medications Administered Current Inpatient Medications Acetaminophen (Tylenol) 650 mg PO Q4H PRN PRN Reason: Pain or Fever Stop: 12/19/19 19:37 Last Admin: 11/23/19 03:59 Dose: 650 mg Documented by: Acetaminophen (Tylenol) 650 mg PO Q8H [facility] Stop: 12/19/19 19:37 Last Admin: 11/30/19 05:40 Dose: 650 mg Documented by: Aspirin (Ecotrin Ectab) 81 mg PO DAILY [facility] Stop: 12/20/19 08:59 Last Admin: 11/30/19 08:15 Dose: 81 mg Documented by: Atorvastatin Calcium (Lipitor) 40 mg PO DAILY [facility] Stop: 12/20/19 08:59 Last Admin: 11/30/19 08:15 Dose: 40 mg Documented by: Calcium Acetate (Phoslo) 1,334 mg PO TIDM [facility] Stop: 12/20/19 07:59 Last Admin: 11/30/19 08:15 Dose: 1,334 mg Documented by: Nitroglycerin (Nitrostat) 0.4 mg SL UD PRN PRN Reason: Chest Pain Stop: 12/19/19 19:37 Oxycodone HCl (Roxicodone Immediate Rel) 5 mg PO Q8H PRN PRN Reason: Pain Stop: 12/06/19 12:12 Last Admin: 11/29/19 21:29 Dose: 5 mg Documented by: Polyethylene Glycol (Miralax Powder Packet) 17 gm PO DAILY PRN PRN Reason: Constipation Stop: 12/19/19 19:37 Last Admin: 11/29/19 06:16 Dose: 17 gm Documented by: Tamsulosin HCl (Flomax) 0.4 mg PO HS [facility] Stop: 12/19/19 20:59 Last Admin: 11/29/19 21:29 Dose: 0.4 mg Documented by: Tramadol HCl (Ultram) 50 mg PO Q12H PRN PRN Reason: Pain Stop: 12/25/19 17:59 Last Admin: 11/25/19 20:56 Dose: 50 mg Documented by:
[2019-11-30] MEDS ORDERED: HYDROCORTISONE HC 2.5% CRM 30GM TUBE EXT PRN (14:47)
[2019-11-30] MEDS: TAMSULOSIN HCL 0.4 MG CAP PO SCH (20:00)
[2019-11-30] MEDS: OXYCODONE HCL IR 5 MG TAB (IMMEDIATE RELEASE) PO PRN (20:00)
[2019-12-01 03:40] VITALS: O2SAT 95
[2019-12-01] MEDS: ACETAMINOPHEN 325 MG TAB PO SCH ×2 (06:13→12:57)
[2019-12-01 07:26] LABS: Basophils # (auto) 0.02 K/uL (0-0.2); Basophils % (auto) 0.2 %; Eosinophils # (auto) 0.24 K/uL (0-0.5); Hematocrit (blood only) 34.5 % (42-52); Immature Granulocytes # (auto) 0.01 K/uL (0.00-0.02); Immature Granulocytes % (auto) 0.1 %; Lymphocytes # (auto) 1.39 K/uL (1.2-3.4); Lymphocytes % (auto) 11.5 %; Mean Corpuscular Hgb Conc 31.9 g/dL (32-36); Mean Corpuscular Volume 75.3 fL (80-100); Mean Platelet Volume 11.1 fL (7.4-10.4); Monocytes # (auto) 0.67 K/uL (0.11-0.59); Monocytes % (auto) 5.5 %; Neutrophils # (auto) 9.78 K/uL (1.4-6.5); Neutrophils % (auto) 80.7 %; Platelet Count 229 K/uL (130-400); RDW Coefficient of Variation 15.5 % (11.5-14.5); RDW Standard Deviation 40.9 fL (36.4-46.3); Red Blood Count 4.58 M/uL (4.7-6.1); White Blood Count 12.11 K/uL (4.8-10.8)
[2019-12-01 07:53] VITALS: TEMP 97.9
[2019-12-01 08:02] LABS: BUN Creatinine Ratio 7.7 (10-20); Calcium 8.6 mg/dl (8.5-10.1); Creatinine Clr Calc Pharmacy 8.5 ml/min; Est GFR (African American) 7.6; Est GFR (Non-African American) 6.6; Potassium 4.8 mmol/L (3.5-5.1)
[2019-12-01] MEDS: ASPIRIN 81 MG ECTAB PO SCH (08:29)
[2019-12-01] MEDS: ATORVASTATIN 40 MG TAB PO SCH (08:29)
[2019-12-01] MEDS: OXYCODONE HCL IR 5 MG TAB (IMMEDIATE RELEASE) PO PRN ×2 (08:29→16:04)
[2019-12-01] MEDS: CALCIUM ACETATE 667 MG CAP/TAB PO SCH ×2 (08:30→12:58)
--- NOTE | 2019-12-01 09:40 | Dialysis Progress Note ---
Date of Service December 01, 2019 Assessment & Plan (1) ESRD on dialysis: Mr. Poon appears to be fairly stable. He is a bit confused today but that may be because he had recently taken some Percocet. Otherwise, he appears to be perfectly stable. He does not appear to be volume overloaded. He does not have symptoms of uremia. His laboratory work is stable. He will continue with his routine dialysis treatment for today. Afterwards, the plan is for him to be transferred to [facility] for continued physical therapy. He will receive outpatient dialysis treatments at his usual dialysis unit, [facility] in [place]. He should be discharged on his routine diet and medications. The dialysis unit is aware that he will be coming on Sunday. (2) ASCVD (arteriosclerotic cardiovascular disease): (3) Hx of CABG: (4) Ischemic cardiomyopathy: Admission and Anticipated Discharge Date Admission Date: November 19, 2019 Anticipated date of discharge: 12/01/19 Subjective Mr. Poon says that he is doing relatively well. However, he continues to have some pain in the pelvic area as well as with his shoulders. He is using Percocet for pain. He has had a side effect of some constipation. However, last night he apparently moved his bowels and said that he had some diarrhea throughout the remainder of the evening. He says that his appetite is okay but he has not eaten breakfast yet. He has not experienced any nausea or vomiting. He denies having chest pain or shortness of breath. He has no other symptoms of uremia or volume overload. He is only been out of bed to a limited degree. The plan for today is for him to have hemodialysis and then to be transferred to the [facility] long-term for continued physical therapy and rehabilitation. His dialysis will be at [facility] in [place]. The remainder of his review of systems is unremarkable. Physical Exam Physical Exam: Mr. Poon was seen during his dialysis treatment today. He seems slightly confused although he did have a Percocet shortly before coming up to the dialysis unit. His vital signs this morning show a blood pressure of 106/63 with a pulse of 76 and regular. Respiratory rate is 18 with a pulse ox of 95% on room air. He is afebrile (36.6). His skin shows normal skin turgor. He has no rash or infiltrative skin disease other than changes of mild venous stasis dermatitis on his distal lower extremities. He has scars from prior surgical procedures including a scar beneath the distal right clavicle from his pacemaker and a midsternal scar from coronary artery bypass surgery. There is a left upper arm AV fistula with a scar in the antecubital fossa on the left from the creation of the fistula as well as multiple dialysis needle track villalobos over the fistula. He has a left inguinal herniorrhaphy scar as well. Lymphatics show no palpable lymphadenopathy. His head is grossly normal. Eyes are grossly normal the ocular fundi were not examined. He had no conjunctival icterus and his conjunctiva did not appear to be particularly pale. Ears, nose, mouth and throat are unremarkable. However, he has multiple missing teeth. His oral mucous membranes are moist. He does wear hearing aids. His neck is supple. I see no jugular venous distention. He has no carotid bruit or thyromegaly. His chest is clear to auscultation. He has no wheezes, rales or rhonchi. Cardiac exam showed a regular rhythm. He has normal bioprosthetic valve sounds. He has a systolic ejection murmur, grade 1/6 to 2/6 principally heard at the right sternal border and base. There is also a murmur radiating into his chest from his left upper arm AV fistula. He has no cardiac gallops. He has no pericardial friction rubs. His abdomen is a bit obese but nontender. There is no organomegaly or mass. Bowel sounds are normal. Extremities show no cyanosis, clubbing or peripheral edema. Peripheral pulses are diminished in his lower extremities. I do not hear femoral bruits. He has the left upper arm AV fistula. He still has some pain on motion of the right hip. His neurologic exam shows minimal confusion. However he has no lateralizing signs. He has no asterixis. Results & Data ([facility]) Vital Signs (Past 12 Hours) Vital Signs Temp Pulse Pulse Resp BP BP Pulse Ox 12/01/19 08:36 75 134/70 12/01/19 08:30 36.6 C 76 12/01/19 07:07 77 12/01/19 07:00 36.6 C 67 18 106/63 95 12/01/19 03:40 36.5 C 82 16 130/59 L 95 12/01/19 00:44 81 11/30/19 23:30 36.6 C 85 16 136/53 L 94 Laboratory Results Laboratory Results - last 24 hr 12/01/19 12/01/19 06:48 06:48 WBC 12.11 H RBC 4.58 L Hgb 11.0 L Hct 34.5 L MCV 75.3 L MCH 24.0 L MCHC 31.9 L RDW Std Deviation 40.9 RDW Coeff of Gill 15.5 H Plt Count 229 MPV 11.1 H Immature Gran % (Auto) 0.1 Neut % (Auto) 80.7 Lymph % (Auto) 11.5 Miner % (Auto) 5.5 Eos % (Auto) 2.0 Baso % (Auto) 0.2 Immature Gran # (Auto) 0.01 Neut # (Auto) 9.78 H Lymph # (Auto) 1.39 Miner # (Auto) 0.67 H Eos # (Auto) 0.24 Baso # (Auto) 0.02 Sodium 135 L Potassium 4.8 Chloride 101 Carbon Dioxide 24 Anion Gap 10.0 BUN 53 H Creatinine 6.92 H* Est Cr Clr Drug Dosing 8.5 Est GFR ( Amer) 7.6 Est GFR (Non-Af Amer) 6.6 BUN/Creatinine Ratio 7.7 L Glucose 101 H Calcium 8.6 [facility] Procedure Codes (Charges) Renal/Urologic Renal/Urologic: 42787 Hemodialysis, One Evaluation Coding Level of Care Code 85192 Subseq Hosp Care Lvl 3 Diagnoses ESRD on dialysis N18.6; Z99.2 ASCVD (arteriosclerotic cardiovascular disease) I25.10 Hx of CABG Z95.1 Ischemic cardiomyopathy I25.5 CPT Codes Renal/Urologic - Renal/Urologic: 82503 Hemodialysis, One Evaluation ([id number])
--- NOTE | 2019-12-01 11:59 | Hospitalist Progress Note ---
Date of Service December 01, 2019 Assessment & Plan (1) Status post fall: 84 year old male with history of ESRD, CAD/CABG, Bradycardia s/p PM, other problems noted below presenting with back pain, weakness after mechanical fall. (1) Ambulatory dysfunction: (2) Fall: (3) Closed compression fracture of L1 vertebra: (4) Closed fracture of Right symphysis pubis: Pt is 84 y/o M with PMH ESRD on HD on MWF schedule, CAD s/p CABG, symptomatic bradycardia s/p pacemaker, chronic anemia, hyperparathyroidism, BPH, bullous pemphigoid presented to ER with complaint of mechanical fall this morning. Denies any known LOC, dizziness, CP, SOB, palpitations. Pt complains of headache, posterior neck pain, mid back pain and pain to groin. CT HEAD: No acute intracranial abnormality. Age-related change. CT C-SPINE:Degenerative change. No acute process. CT L-SPINE:1. 30% compression deformity superior endplate of L1. 2. This shows no evidence for posterior displacement or compromise of the spinal canal. 3. Remainder the study is remarkable for generalized degenerative disc change and osteoporosis. CT PELVIS: 1. Nondisplaced cortical fracture right symphysis pubis. 2. Posttraumatic soft tissue contusion posterior and superior to the right symphysis pubis measuring 3 x 2 cm. 3. Old healed fracture left pubic ring LEFT SHOULDER XRAY: 1. No acute bony abnormality. 2. Deformity left humeral head and neck consistent with an old healed fracture. Appreciate input and recommendation from Ortho spine: no surgical intervention at this time Appreciate input and recommendation from Gen Ortho: Conservative management Oxycodone 8 hours as needed (caution with increasing dose as patient prone to confusion with higher doses) Tramadol q12h as needed Tylenol ordered q8h We will get PT and OT evaluation Denies any pain at rest Will likely need to go for short-term rehab COVID-19 test has been ordered as it is required by law before going to any facility for continued care Remains stable and likely be discharged when placement is finalized Remains a stable and denies any significant symptoms Ready to be discharged to [facility] this afternoon Constipation Has not had any bowel movement for the last 5 days Will try Dulcolax suppository Fleet enema if Dulcolax does not work Bowel movement (5) ESRD on dialysis: On Sunday hemodialysis schedule Appreciate Dr. 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 Baseline Hgb ~11 Current hemoglobin at baseline (8) Ischemic cardiomyopathy: CXR: Pulmonary vascular congestion -Euvolemic (9) Symptomatic bradycardia: S/P pacemaker Follows with Dr. Mcwilliams -Pacemaker interrogation: Appropriate pacing, recorded events show NSVT, no changes recommended (10) BPH (benign prostatic hyperplasia): -Continue tamsulosin (11) Bullous pemphigoid: Follows with dermatology outpatient. 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, patient's Zenia updated, she is requesting patient referred to [facility] COVID-19 test has been negative Will be transferred to [facility] around 2 PM today Admission and Anticipated Discharge Date Admission Date: November 19, 2019 Anticipated date of discharge: 12/01/19 Subjective The patient was seen and examined in medical telemetry unit He complains to have some back pain at rest but has not been out of bed for a while Denies any chest pain and/or palpitation, any abdominal pain nausea no vomiting 11/27/2019 Patient was seen and examined in medical telemetry unit He remains stable Has been getting physical therapy for his lumbar and pelvic fracture Denies any problem with dialysis 11/28/2019 The patient was seen and examined in medical floor He denies any acute symptoms and remains stable His pain is controlled and has been getting physical therapy 11/29/2019 The patient was seen and examined in medical floor He remained stable denies any pain at rest Has been getting his usual dialysis Awaiting to be transferred to skilled care facility on Sunday11/30/2019 Patient was seen and examined in medical floor He complains to have some abdominal discomfort and has not has a bowel movement for the last 5 days He denies any abdominal pain, any nausea and or vomiting His pain has been under control 12/01/2019 The patient was seen and examined in medical floor He remains stable and denies any symptoms He is medically stable to be transferred to [facility] this afternoon Review of Systems Review of Systems: All systems reviewed and are unremarkable except as noted below Musculoskeletal: + back pain Pelvic pain Physical Exam Physical Exam: Lying in bed comfortably Constitutional: well developed and well nourished; no acute distress and not ill appearing Eyes: PERRL, conjunctivae normal, anicteric sclerae ENMT: external ear and nose normal, oropharynx normal Neck: trachea midline, no thyromegaly Respiratory: normal respiratory effort; no respiratory distress Auscultation: + diminished lung sounds; no crackles Cardiovascular: Rate/Rhythm: regular rate and regular rhythm Heart Sounds: no murmur Gastrointestinal (Abdomen): Inspection/Auscultation: abdomen normal to inspection and normal bowel sounds Percussion/Palpation: abdomen soft; abdomen nontender Neurologic: moves all extremities; no focal motor deficits Lymphatic: no cervical or axillary lymphadenopathy Results & Data Results & Data ([facility]) Vital Signs (Past 12 Hours) Vital Signs Temp Pulse Pulse Resp BP BP Pulse Ox 12/01/19 11:40 86 82/58 L 12/01/19 11:23 85 110/55 L 12/01/19 11:00 87 110/56 L 12/01/19 10:40 84 101/56 L 12/01/19 10:20 83 97/60 L 12/01/19 10:00 83 101/50 L 12/01/19 09:40 75 113/61 12/01/19 09:20 68 98/62 L 12/01/19 09:00 75 113/61 12/01/19 08:36 75 134/70 12/01/19 08:30 36.6 C 76 12/01/19 07:07 77 12/01/19 07:00 36.6 C 67 18 106/63 95 12/01/19 03:40 36.5 C 82 16 130/59 L 95 12/01/19 00:44 81 Laboratory Results Short CBC 12/01/19 Range/Units 06:48 WBC 12.11 H (4.8-10.8) K/uL Hgb 11.0 L (14.0-18.0) g/dL Hct 34.5 L (42-52) % Plt Count 229 (130-400) K/uL BMP 12/01/19 06:48 Sodium 135 L Potassium 4.8 Chloride 101 Carbon Dioxide 24 BUN 53 H Creatinine 6.92 H* Glucose 101 H Calcium 8.6 Medications Administered Current Inpatient Medications Acetaminophen (Tylenol) 650 mg PO Q4H PRN PRN Reason: Pain or Fever Stop: 12/19/19 19:37 Last Admin: 11/23/19 03:59 Dose: 650 mg Documented by: Acetaminophen (Tylenol) 650 mg PO Q8H [facility] Stop: 12/19/19 19:37 Last Admin: 12/01/19 06:13 Dose: 650 mg Documented by: Aspirin (Ecotrin Ectab) 81 mg PO DAILY [facility] Stop: 12/20/19 08:59 Last Admin: 12/01/19 08:29 Dose: 81 mg Documented by: Atorvastatin Calcium (Lipitor) 40 mg PO DAILY [facility] Stop: 12/20/19 08:59 Last Admin: 12/01/19 08:29 Dose: 40 mg Documented by: Calcium Acetate (Phoslo) 1,334 mg PO TIDM [facility] Stop: 12/20/19 07:59 Last Admin: 12/01/19 08:30 Dose: Not Given Documented by: Hydrocortisone (Proctozone Hc 2.5%) 1 appln EXT BID PRN PRN Reason: Hemorrhoids Stop: 12/30/19 14:46 Last Admin: 11/30/19 19:46 Dose: 1 appln Documented by: Nitroglycerin (Nitrostat) 0.4 mg SL UD PRN PRN Reason: Chest Pain Stop: 12/19/19 19:37 Oxycodone HCl (Roxicodone Immediate Rel) 5 mg PO Q8H PRN PRN Reason: Pain Stop: 12/06/19 12:12 Last Admin: 12/01/19 08:29 Dose: 5 mg Documented by: Polyethylene Glycol (Miralax Powder Packet) 17 gm PO DAILY PRN PRN Reason: Constipation Stop: 12/19/19 19:37 Last Admin: 11/29/19 06:16 Dose: 17 gm Documented by: Tamsulosin HCl (Flomax) 0.4 mg PO HS [facility] Stop: 12/19/19 20:59 Last Admin: 11/30/19 20:00 Dose: 0.4 mg Documented by: Tramadol HCl (Ultram) 50 mg PO Q12H PRN PRN Reason: Pain Stop: 12/25/19 17:59 Last Admin: 11/25/19 20:56 Dose: 50 mg Documented by:
[2019-12-01 12:44] VITALS: BP 134/80; PULSE 90
--- NOTE | 2019-12-01 17:33 | Discharge Summary ---
Date of Service December 01, 2019 Admission HPI Per Admitting Provider Pt is 84 y/o M with PMH ESRD on HD on MWF schedule, CAD s/p CABG, symptomatic bradycardia s/p pacemaker, chronic anemia, hyperparathyroidism, BPH, bullous pemphigoid presented to ER with complaint of fall this morning. Patient reports this morning was walking 2 AM to go to dialysis and tripped on raised piece of concrete and fell. He reports van drivers were able to get him up and take him to dialysis and patient was able to complete dialysis today. Denies any known LOC. Pt complains of headache, posterior neck pain, mid back pain and pain to groin. He reports secondary to pain he is unable to move his arms or his legs. Was able to speak with patient's on the phone who reports patient has been having progressive generalized weakness and leg weakness. Uses walker but reports having difficulty with that some days. She reports past several weeks has been unable to be walking much, only getting around in the house. He has a lift chair which helps get him out of the chair otherwise patient has difficulty getting out of chair. She reports patient has chronic bilateral shoulder bilateral wrist and knee pain and takes Percocet twice a day. also reports pt is very sleepy at baseline, however much more sleepy after dialysis. Denies recent illness, cough, SOB. Denies CP, dizziness, palpitations prior to fall. Pt reports doesn't eat or drink much at baseline. Reports still makes urine and denies dysuria, hematuria, urinary frequency or retention. Denies fever/chills, diaphoresis, N/V/D/C, vision changes, orthopnea, palpitations, cough, sore throat, choking, otalgia, rhinorrhea, abdominal pain, paresthesias, increased extremity edema, rashes. Admission Exam Per Admitting Provider Physical Exam: General: no distress, obese Head: normocephalic, atraumatic Eyes: PERRL, EOM's intact, conjunctiva non-injected, anicteric ENT: normal inspection external ears, nose, mucous membranes moist Neck: supple, trachea midline, no spinous process tenderness to palpation Lungs: no respiratory distress, coarse breath sounds CV: RRR, no murmur,1+ pretibial edema; pacer palpable to chest wall Abd: normal BS, soft, protuberant secondary to adipose tissue, non-tender Ext: no cyanosis, BLE with discoloration; Pt unable to actively move his bilateral arms or legs. Passive ROM of left arm reproduces pain to left shoulder. +tenderness to palpation anterior left shoulder without erythema or edema, remaining L arm, elbow and wrist and hand non-tender to palpation. Passive ROM of left arm without reported pain to shoulder, elbow, wrist or hand. Passive ROM of LLE with pain reproduced to groin with flexion of left hip. Passive ROM of RLE without reported pain. distal pulses palpable, sensation to light touch intact Bilateral fingers with ulnar deviation. Neuro: Drowsy but awakens to voice. Alert, oriented to person, place, year, unsure of day of week and reports month is october, no focal deficits noted, normal affect Skin: warm, dry Principal Diagnosis Ambulatory dysfunction, status post fall with closed compression fracture of L1 vertebra and right symphysis pubis, end-stage renal disease on hemodialysis, ASCVD Discharge Exam Constitutional well developed and well nourished; no acute distress and not ill appearing Eyes PERRL, conjunctivae normal, anicteric sclerae ENMT external ear and nose normal, oropharynx normal Neck trachea midline, no thyromegaly Respiratory normal respiratory effort; no respiratory distress Auscultation: + diminished lung sounds; no crackles Cardiovascular Rate/Rhythm: regular rate and regular rhythm Heart Sounds: no murmur Gastrointestinal (Abdomen) Inspection/Auscultation: abdomen normal to inspection and normal bowel sounds Percussion/Palpation: abdomen soft; abdomen nontender Neurologic moves all extremities; no focal motor deficits Lymphatic no cervical or axillary lymphadenopathy Discharge Data Allergies Allergy/AdvReac Type Severity Reaction Status Date / Time No Known Drug Allergies Allergy Unknown . Verified 11/19/19 15:53 Consultations 11/19/19 17:18 ED Decision to Admit Stat 11/19/19 19:38 Consult Case Management - Discharge Planning Routine Consult Orthopedic Surgery Routine 11/20/19 07:00 Consult Nephrology Routine 11/20/19 08:00 Consult Orthopedic Surgery Routine Ordered Studies 11/19/19 15:29 CT cervical spine wo con Stat CT head/brain wo con Stat CT lumbar spine wo con Stat CT pelvis wo con Stat Hospital Course (1) Status post fall: 84 year old male with history of ESRD, CAD/CABG, Bradycardia s/p PM, other problems noted below presenting with back pain, weakness after mechanical fall. (1) Ambulatory dysfunction: (2) Fall: (3) Closed compression fracture of L1 vertebra: (4) Closed fracture of Right symphysis pubis: Pt is 84 y/o M with PMH ESRD on HD on MWF schedule, CAD s/p CABG, symptomatic bradycardia s/p pacemaker, chronic anemia, hyperparathyroidism, BPH, bullous pemphigoid presented to ER with complaint of mechanical fall this morning. Denies any known LOC, dizziness, CP, SOB, palpitations. Pt complains of headache, posterior neck pain, mid back pain and pain to groin. CT HEAD: No acute intracranial abnormality. Age-related change. CT C-SPINE:Degenerative change. No acute process. CT L-SPINE:1. 30% compression deformity superior endplate of L1. 2. This shows no evidence for posterior displacement or compromise of the spinal canal. 3. Remainder the study is remarkable for generalized degenerative disc change and osteoporosis. CT PELVIS: 1. Nondisplaced cortical fracture right symphysis pubis. 2. Posttraumatic soft tissue contusion posterior and superior to the right symphysis pubis measuring 3 x 2 cm. 3. Old healed fracture left pubic ring LEFT SHOULDER XRAY: 1. No acute bony abnormality. 2. Deformity left humeral head and neck consistent with an old healed fracture. Appreciate input and recommendation from Ortho spine: no surgical intervention at this time Appreciate input and recommendation from Gen Ortho: Conservative management Oxycodone 8 hours as needed (caution with increasing dose as patient prone to confusion with higher doses) Tramadol q12h as needed Tylenol ordered q8h We will get PT and OT evaluation Denies any pain at rest Will likely need to go for short-term rehab COVID-19 test has been ordered as it is required by law before going to any facility for continued care Remains stable and likely be discharged when placement is finalized Remains a stable and denies any significant symptoms Ready to be discharged to [facility] this afternoon Constipation Has not had any bowel movement for the last 5 days Will try Dulcolax suppository Fleet enema if Dulcolax does not work Bowel movement (5) ESRD on dialysis: On Sunday hemodialysis schedule Appreciate Dr. 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 Baseline Hgb ~11 Current hemoglobin at baseline (8) Ischemic cardiomyopathy: CXR: Pulmonary vascular congestion -Euvolemic (9) Symptomatic bradycardia: S/P pacemaker Follows with Dr. Mcwilliams -Pacemaker interrogation: Appropriate pacing, recorded events show NSVT, no changes recommended (10) BPH (benign prostatic hyperplasia): -Continue tamsulosin (11) Bullous pemphigoid: Follows with dermatology outpatient. 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 manager on board, patient's Zenia updated, she is requesting patient referred to [facility] COVID-19 test has been negative Will be transferred to [facility] around 2 PM today Total Time Total Time Spent Total Time Spent (In Minutes): 40 minutes Total Time Includes: Examination of the Patient, Discharge Planning, Medication Reconciliation and Communication With Other Providers Discharge Plan Discharge Items Patient Disposition: Transfer [facility] Fac Reason For Visit: AMBULATORY DYSFUNCTION Discharge Diagnosis: Ambulatory dysfunction, status post fall with closed compression fracture of L1 vertebra and right symphysis pubis, end-stage renal disease on hemodialysis, ASCVD Condition on Discharge: Fair Activity: As commented below Activity Comment: Would recommend no lifting over 5 pounds. Non-emergency contact: Primary Care Provider Call non-emergency contact if: you have any medication questions and your symptoms worsen Follow-up/Referrals: [facility], [Primary Care Provider] - (Please make an appointment with your primary care provider within 7 days following discharge from the facility) Diet: Carb Consistent or DM2 and Dialysis Renal Addtl Attending Provider Instructions: Please take precaution to avoid fall There is no restriction for ambulation with pelvic fracture No lifting greater than 5 pounds for lumbar vertebral fracture Will need to have a follow-up with Dr. Mcgee in about 2 to 3 weeks if the back pain persists. Pending Studies at Discharge: No Stand-Alone Forms: My [employer] Skilled Items Patient informed of condition?: Yes DNR: No Discharge Level of Care: Skilled Communicable Disease: No Discharge Prognosis: Stable Lines: None Urinary Catheter: No Medications and DC Order Prescriptions: New hydrocortisone [Proctosol HC] 2.5 % Cream With Perineal Applicator 1 applic EXT BID 30 Days Qty: 1 RF: 0 oxycodone 5 mg Tablet 5 mg PO Q8H PRN (Reason: pain) 3 Days Qty: 9 RF: 0 Continued oxycodone-acetaminophen 5-325 mg tablet 1 tab PO BID Qty: 60 RF: 0 calcium acetate(phosphat bind) 667 mg capsule 1,334 mg PO TIDM RF: 0 tamsulosin 0.4 mg capsule 0.4 mg PO HS Qty: 90 RF: 0 aspirin [Aspirin Low Dose] 81 mg Tablet,Delayed Release (Dr/Ec) 81 mg PO DAILY RF: 0 nitroglycerin [Nitrostat] 0.4 mg Tablet, Sublingual 0.4 mg sublingual UD PRN (Reason: Chest Pain) RF: 0 atorvastatin 40 mg tablet 40 mg PO DAILY RF: 0 Discharge Orders: Discharge Order (Routine); Ordered 12/01/19 Ordered By: Marilyn Terrell Admission Data Admit Date/Time: 11/19/19 17:33 Attending Provider: Marilyn Terrell Admit Provider: Chele Euceda Primary Care Provider: [facility] Other Providers: Chele Euceda ; Hossein Mcgee ; Juanjo Jacinto Jonathan ; [place] ; Yordy [facility] [place] ; [place] Other Interventions: Discharge Summary Assessment (RN) Last Done: 12/01/19 14:45 DC Date/Time DO NOT enter until pt leaves facility: 12/01/19 16:36
== END 2019-12-01 16:36 | DRG 551 ==
LOC: ED 14:50 → SUATTDRO 17:33 → 2N 17:33

== ENCOUNTER 2020-01-01 19:52 | Inpatient (IN) ==
[2020-01-01] MEDS ORDERED: SODIUM CHLORIDE 0.9% 1000ML 250 ML IV ONE (20:44)
[2020-01-01] MEDS ORDERED: ONDANSETRON INJ 2 MG/ML 2 ML VIAL IV STA (20:44)
--- NOTE | 2020-01-01 20:49 | Emergency Department Note ---
Impression & Plan Elevated troponin, Rectal pain, Constipation, Vomiting ED Provider Note NAME: NICK NELSON SR AGE: 84 SEX: M : 1935 ARRIVES VIA: Ambulance INFORMANT: [Patient][nurses] ED PROVIDER(S): [Star Dodge MD] CHIEF COMPLAINT: Constipation, vomiting HISTORY OF PRESENT ILLNESS: The patient is an 84-year-old male who has had 1 week of constipation and difficulty moving his bowels. For the last 2 days, he has had a decreased appetite and he has had some intermittent vomiting. Patient has had enemas and medications to promote bowel movements at [facility] without relief. He does have 9/10 rectal pain at times when it feels like he has to have a bowel movement. He has no anterior abdominal pain. No cough or congestion or shortness of breath. He does go to dialysis and is scheduled for dialysis tomorrow. As the patient was not improving, as he was vomiting, he was felt in need of assessment. He was brought by ambulance. REVIEW OF SYSTEMS: See HPI for pertinent positives and negatives. A total of ten systems were reviewed and were otherwise negative. PMHx/PSHx: See Below SOCIAL HISTORY: See Below. PHYSICAL EXAM: GENERAL: Patient is in no acute distress. HEENT: No acute trauma, normocephalic atraumatic, mucous membranes moist, no nasal congestion, no scleral icterus. NECK: No stridor, no adenopathy, no meningismus, trachea is midline. LUNGS: Clear to auscultation bilaterally when listening anterior, no wheeze, no rhonchi, breath sounds equal. HEART: 3/6 systolic murmur, irregular rhythm, normal rate. ABDOMEN: Soft, nontender, bowel sounds positive, no hernias, no peritonitis. EXTREMITIES: No cyanosis, mild bilateral pedal edema, full range of motion of all the joints without pain or difficulty, no signs for acute trauma. NEUROLOGIC: Oriented x 3, no acute motor or sensory deficits, no focal weakness. SKIN: No rash, no jaundice, no diaphoresis. DIFFERENTIAL DIAGNOSIS: Appendicitis, infections, diverticulitis, obstruction, mesenteric ischemia, aortic pathology, inflammatory bowel disease, renal colic, PUD, pancreatitis, biliary pathology, hernia, volvulus, constipation, as well as other pathologies. EMERGENCY DEPARTMENT COURSE/PROCEDURES: ECG: Indication was weakness. The EKG shows a ventricular pacemaker with some koi ventricular beats. The rate is 81. No PACs. The QTc is 555. No worrisome ST elevation seen. Continuous Cardiac Monitoring: An order was placed for continuous cardiac monitoring. The monitor shows a rate of 73 with a ventricular pacemaker. MEDICAL DECISION MAKING: There is no leukocytosis. The patient is anemic but this appears baseline looking back at previous testing. There is a normal platelet count. Renal panel testing shows a high creatinine, this is consistent with his dialysis need. No significant electrolyte abnormality in need of emergent correction. Alk phos was slightly elevated, the bilirubin was normal. Lipase was normal. EKG shows a ventricular pacemaker. Cardiac enzyme testing x1 is elevated at 1.3, this could be consistent with cardiac strain or injury. Chest film shows some possible mild CHF. I did not see any obvious pneumonia. There was no pneumothorax. Cardiomegaly was seen. Abdominal and pelvis CT demonstrates evidence for proctitis with constipation. There was no bowel obstruction. The patient received a small amount of IV saline, 250 cc. He was given IV Tylenol, IV morphine and IV Zofran. He was given a soapsuds enema and then eventually a milk of molasses enema. The patient presents with vomiting, rectal pain and constipation. He has been dealing with constipation for a week. Given his troponin elevation, given the proctitis with persistent constipation on CT, I do think a hospital stay is warranted. The cardiac troponin needs to be trended. We need to work on his constipation issue with a continuous bowel regimen. I do not think he is stable for discharge back to the [facility]. I did speak to the patient, I spoke with case management. The on-call hospitalist was consulted. Past Med/Surg History Medical History Anemia Dialysis patient Pacemaker Social History Preferred Language: Citizen Of [place] Feels Safe at Home: Yes Smoking Status: Former smoker Allergies Allergies Allergy/AdvReac Type Severity Reaction Status Date / Time No Known Allergies Allergy Unverified 01/01/20 22:53 Home Meds Home Medications Medication Instructions Recorded Confirmed Prune Juice 1 dose PO UD PRN 01/01/20 01/01/20 acetaminophen [Tylenol] 650 mg PO Q6 PRN 01/01/20 01/01/20 aspirin [Aspir-81] 81 mg PO DAILY 01/01/20 01/01/20 atorvastatin 40 mg PO HS 01/01/20 01/01/20 calcium acetate 1,334 mg PO TIDM 01/01/20 01/01/20 magnesium hydroxide [Milk of 30 ml PO DIRECTED PRN 01/01/20 01/01/20 Magnesia] nitroglycerin [Nitrostat] 0.4 mg SUBLINGUAL UD PRN 01/01/20 01/01/20 oxycodone 5 mg PO Q8H PRN 01/01/20 01/01/20 oxycodone-acetaminophen [Percocet] 1 tab PO BID PRN 01/01/20 01/01/20 tamsulosin [Flomax] 0.4 mg PO DAILY 01/01/20 01/01/20 Results & Data (ED) Vital Signs Vital Signs - 24 hr 01/01/20 20:04 01/01/20 20:45 01/01/20 21:19 Temperature 37.0 C Temperature Source Oral Pulse Rate 90 Pulse Rate [Apical] 73 Respiratory Rate 18 20 Respiratory Depth Normal Normal Blood Pressure 122/59 L Blood Pressure [Right Arm] 102/47 L Blood Pressure Mean 80 Blood Pressure Mean [Right Arm] 65 Pulse Oximetry 96 96 91 Oxygen Delivery Method Room Air Room Air Room Air Oxygen Flow Rate Sepsis Recent Fever Within 48 Hours No Sepsis New/Unexplained Change in Mental Status No Sepsis Action Taken by Nursing No Action Required 01/01/20 22:00 Temperature Temperature Source Pulse Rate Pulse Rate [Apical] 73 Respiratory Rate 18 Respiratory Depth Normal Blood Pressure Blood Pressure [Right Arm] 122/61 Blood Pressure Mean Blood Pressure Mean [Right Arm] 81 Pulse Oximetry 99 Oxygen Delivery Method Nasal Cannula Oxygen Flow Rate 2 Sepsis Recent Fever Within 48 Hours Sepsis New/Unexplained Change in Mental Status Sepsis Action Taken by Longterm Medications Current Medication List: was personally reviewed by me Laboratory Data Attestation: I reviewed the patient's lab results. Result diagrams: 01/01/20 20:45 01/01/20 20:45 Lab Results 01/01/20 01/01/20 01/01/20 Range/Units 20:45 20:45 20:45 WBC 9.52 (4.8-10.8) K/uL RBC 4.53 L (4.7-6.1) M/uL Hgb 10.3 L (14.0-18.0) g/dL Hct 34.1 L (42-52) % MCV 75.3 L (80-100) fL MCH 22.7 L (25-34) pg MCHC 30.2 L (32-36) g/dL RDW Std Deviation 45.1 (36.4-46.3) fL RDW Coeff of Gill 16.5 H (11.5-14.5) % Plt Count 136 (130-400) K/uL Immature Gran % (Auto) 0.2 % Neut % (Auto) 81.5 % Lymph % (Auto) 10.5 % [place] % (Auto) 6.3 % Eos % (Auto) 1.3 % Baso % (Auto) 0.2 % Immature Gran # (Auto) 0.02 (0.00-0.02) K/uL Neut # (Auto) 7.76 H (1.4-6.5) K/uL Lymph # (Auto) 1.00 L (1.2-3.4) K/uL [place] # (Auto) 0.60 H (0.11-0.59) K/uL Eos # (Auto) 0.12 (0-0.5) K/uL Baso # (Auto) 0.02 (0-0.2) K/uL Platelet Estimate Decreased L (Normal) Hypochromasia Present APTT 32.5 H (21.0-31.0) Seconds PTT Ratio 1.2 Sodium 137 (136-145) mmol/L Potassium 3.9 (3.5-5.1) mmol/L Chloride 101 (98-107) mmol/L Carbon Dioxide 28 (21-32) mmol/L Anion Gap 7.0 (3-11) BUN 15 (7-18) mg/dl Creatinine 4.06 H (0.6-1.4) mg/dl Est Cr Clr Drug Dosing 14.9 ml/min Est GFR ( Amer) 14.6 Est GFR (Non-Af Amer) 12.6 BUN/Creatinine Ratio 3.6 L (10-20) Glucose 102 H (70-99) mg/dl Calcium 9.2 (8.5-10.1) mg/dl Magnesium 1.9 (1.8-2.4) mg/dl Total Bilirubin 0.6 (0.2-1) mg/dl AST 19 (15-37) U/L ALT 11 L (12-78) U/L Alkaline Phosphatase 210 H (45-117) U/L Troponin I 1.300 H* (0-0.045) ng/ml Total Protein 6.6 (6.4-8.2) gm/dl Albumin 2.8 L (3.4-5.0) gm/dl Globulin 3.8 (2.5-4.0) gm/dl Albumin/Globulin Ratio 0.7 L (0.9-2) Lipase 29 L (73-393) U/L Administered Medications Morphine Sulfate (Morphine Sulfate) 2 mg IV Q15M PRN PRN Reason: Pain Stop: 01/15/20 20:43 Last Admin: 01/01/20 22:57 Dose: 2 mg Documented by: [id number] Admin: 01/01/20 20:52 Dose: 2 mg Documented by: [id number] Discontinued Medications Aspirin (Ecotrin Ectab) 81 mg PO NOW STA Stop: 01/01/20 23:10 Last Admin: 01/02/20 00:12 Dose: 81 mg Documented by: [id number] Sodium Chloride (Nss 1000ml) 250 mls @ 999 mls/hr IV .Q16M ONE Stop: 01/01/20 20:59 Last Infusion: 01/01/20 21:05 Dose: 0 mls/hr Documented by: [id number] Admin: 01/01/20 20:48 Dose: 999 mls/hr Documented by: [id number] Acetaminophen (Ofirmev) 1,000 mg in 100 mls @ 400 mls/hr IV NOW STA Stop: 01/01/20 23:03 Last Infusion: 01/01/20 23:15 Dose: 0 mls/hr Documented by: [id number] Admin: 01/01/20 22:57 Dose: 400 mls/hr Documented by: [id number] Lactulose (Chronulac) 30 gm PO NOW STA Stop: 01/01/20 22:16 Last Admin: 01/02/20 00:12 Dose: 30 gm Documented by: [id number] Ondansetron HCl (Zofran) 4 mg IV NOW STA Stop: 01/01/20 20:45 Last Admin: 01/01/20 20:52 Dose: 4 mg Documented by: [id number] Imaging Data Attestation: I personally reviewed and interpreted this imaging study as follows: My Impression: Chest x-ray: There is some mild CHF versus some chronic parenchym al congestion. No obvious pneumonia, cardiomegaly was seen. No pneumothorax. Radiologist's Impression: Abdominal and pelvis CT without contrast: Sequential thickening of the rectal wall, possible proctitis or inflammatory change. Tumor is a consideration as well. There is diverticulosis noted. No bowel obstruction. Gallstones were seen. No appendicitis or diverticulitis or bowel obstruction. No free air or free fluid. Blood Pressure Blood Pressure Findings: Elevated blood pressure Blood Pressure Disposition: further management by hospitalist Discharge Plan Visit Data *Final* Discharge Date/Time: 01/02/20 00:01 Chief Complaint: GI Assessment Stated Complaint: CONSTIPATION ED Provider: Star Dodge Discharge Problem: Elevated troponin, Rectal pain, Constipation, Vomiting Patient Disposition: Admitted As Inpatient Condition: Fair Discharge Instructions Interventions: ED Discharge Assessment Last Done: 01/02/20 00:01 Discharge Problem: Constipation Qualifiers: Constipation type: unspecified constipation type Qualified Code(s): K59.00 - Constipation, unspecified Vomiting Qualifiers: Vomiting type: unspecified Vomiting Intractability: non-intractable Nausea presence: with nausea Qualified Code(s): R11.2 - Nausea with vomiting, unspecified
[2020-01-01] MEDS: MoRPHine SULFATE 4 MG/ML 1 ML CARP\\VIAL IV PRN ×2 (20:52→22:57)
[2020-01-01 20:57] LABS: Mean Corpuscular Hgb Conc 30.2 g/dL (32-36)
[2020-01-01 21:12] LABS: Albumin Level 2.8 gm/dl (3.4-5.0); BUN Creatinine Ratio 3.6 (10-20); Calcium 9.2 mg/dl (8.5-10.1); Creatinine Clr Calc Pharmacy 14.9 ml/min; Est GFR (African American) 14.6; Est GFR (Non-African American) 12.6; Magnesium 1.9 mg/dl (1.8-2.4); Potassium 3.9 mmol/L (3.5-5.1)
[2020-01-01 21:23] LABS: Albumin Globulin Ratio 0.7 (0.9-2); Bilirubin,Total 0.6 mg/dl (0.2-1); Globulin 3.8 gm/dl (2.5-4.0); Total Protein 6.6 gm/dl (6.4-8.2); Troponin I 1.3 ng/ml (0-0.045)
[2020-01-01 21:25] LABS: Hematocrit (blood only) 34.1 % (42-52); Hemoglobin 10.3 g/dL (14.0-18.0); Mean Corpuscular Hemoglobin 22.7 pg (25-34); Mean Corpuscular Volume 75.3 fL (80-100); RDW Coefficient of Variation 16.5 % (11.5-14.5); RDW Standard Deviation 45.1 fL (36.4-46.3); Red Blood Count 4.53 M/uL (4.7-6.1); White Blood Count 9.52 K/uL (4.8-10.8)
[2020-01-01 21:42] LABS: Basophils # (auto) 0.02 K/uL (0-0.2); Basophils % (auto) 0.2 %; Eosinophils # (auto) 0.12 K/uL (0-0.5); Eosinophils % (auto) 1.3 %; Hypochromasia Present; Immature Granulocytes # (auto) 0.02 K/uL (0.00-0.02); Immature Granulocytes % (auto) 0.2 %; Lymphocytes % (auto) 10.5 %; Monocytes % (auto) 6.3 %; Neutrophils # (auto) 7.76 K/uL (1.4-6.5); Neutrophils % (auto) 81.5 %; Platelet Count 136 K/uL (130-400); Platelet Estimate Decreased (Normal)
[2020-01-01] MEDS ORDERED: LACTULOSE SYRUP 20 GM/30 ML UDC PO STA (22:15)
[2020-01-01] MEDS ORDERED: PROMETHAZINE HCL 12.5 MG in SODIUM CHLORIDE 0.9% 50 ML IV PRN (22:16)
[2020-01-01] MEDS ORDERED: ACETAMINOPHEN 1,000 MG/100 ML VIAL IV STA (22:49)
[2020-01-01 22:51] LABS: Partial Thromboplastin Ratio 1.2; Partial Thromboplastin Time 32.5 Seconds (21.0-31.0)
[2020-01-01] MEDS ORDERED: ASPIRIN 81 MG ECTAB PO STA (23:09)
--- NOTE | 2020-01-01 23:10 | History & Physical Report ---
Date of Service January 01, 2020 Assessment & Plan (1) Troponin level elevated: Asymptomatic troponin elevation in the setting of ESRD on HD hx CAD sp CABG Narcotic induced constipation, hx recurrent fecal impaction, hx pelvic fractures on RTC Percocet Proctitis secondary to above and bowel regimen rendered at [facility] rehab, patient not septic. hx chronic systolic heart failure secondary ischemic cardiomyopathy (EF 30 to 35%, TTE 2019), some congestion on CXR symptomatic bradycardia status post PPM, paced rhythm history bioprosthetic AVR hypertension, BP on the lower side chronic anemia secondary to ESRD, hemoglobin at baseline chronic thrombocytopenia ambulatory dysfunction. OBS PCU Trend troponin TTE, Cardiology consult if with progression of troponinemia (Patient known to Dr. Wheat.) Bowel regimen, manual fecal disimpaction by nursing PRN on discharge back to [facility] rehab given predisposition for fecal impaction. Nephrology consult RE dialysis management DVT prophylaxis. SCDs RE thrombocytopenia DNR Text document was generated using [employer] voice recognition software. It may contain grammatical or spelling errors. Kindly contact undersigned for clarification of any documentation item in question. History of Present Illness Chief Complaint: Obstipation, nausea/emesis Primary Care Provider: Suly House DO (NOTE : Patient has prior [facility] [employer] . Registration has been requested to notify medical records to fuse the 2 accounts in a.m.) History obtained from patient, family, and records. Medical history significant for chronic systolic heart failure secondary ischemic cardiomyopathy (EF 30 to 35%, TTE 2019), CAD status post CABG, symptomatic bradycardia status post PPM, history bioprosthetic AVR, hypertension, ESRD on HD, chronic anemia (baseline hemoglobin of 10), BPH as per records, history of bullous pemphigoid as per records, chronic thrombocytopenia, ambulatory dysfunction.. [facility] confinement 2018 for fecal impaction. Recent confinement last month for lumbar compression and pelvic fractures secondary to mechanical fall. Constipation during confinement. Patient discharged to [facility] for rehab. At rehab facility, patient started on Percocet BID RTC and as needed oxycodone for pelvic fracture pain. No bowel movement for about a week as per patient. Poor appetite with intermittent emesis. No response to laxatives given at [facility] rehab. Achy rectal pain without fever and chills. Patient denies chest pain, S OB. Enema and fecal disimpaction done at the ER. Medical History as above Hemodialysis Sunday Surgical History : CABG, PPM, bioprosthetic AVR, cataract surgery, tonsillectomy, hernia repair, vascular procedures Family History : Heart disease, diabetes, stroke Personal/Social history : Non-smoker, no EtOH intake, retired [employer], [employer] Allergies Allergy/AdvReac Type Severity Reaction Status Date / Time No Known Drug Allergies Allergy Unknown . Verified 01/02/20 07:45 Home Medications Home Medications Medication Instructions Recorded Confirmed Type calcium acetate(phosphat bind) 667 1,334 mg PO TIDM cap 04/02/19 11/19/19 History mg capsule tamsulosin 0.4 mg capsule 0.4 mg PO HS #90 cap 04/02/19 11/19/19 History oxycodone-acetaminophen 5 mg-325 1 tab PO BID #60 tab 11/05/19 11/19/19 Rx mg tablet aspirin [Aspirin Low Dose] 81 mg PO DAILY 11/19/19 11/19/19 History atorvastatin 40 mg PO DAILY 11/19/19 11/19/19 History nitroglycerin [Nitrostat] 0.4 mg SUBLINGUAL UD PRN 11/19/19 11/19/19 History Prune Juice 1 dose PO UD PRN 01/01/20 01/01/20 History acetaminophen [Tylenol] 650 mg PO Q6 PRN 01/01/20 01/01/20 History aspirin [Aspir-81] 81 mg PO DAILY 01/01/20 01/01/20 History atorvastatin 40 mg PO HS 01/01/20 01/01/20 History calcium acetate 1,334 mg PO TIDM 01/01/20 01/01/20 History magnesium hydroxide [Milk of 30 ml PO DIRECTED PRN 01/01/20 01/01/20 History Magnesia] nitroglycerin [Nitrostat] 0.4 mg SUBLINGUAL UD PRN 01/01/20 01/01/20 History oxycodone 5 mg PO Q8H PRN 01/01/20 01/01/20 History oxycodone-acetaminophen [Percocet] 1 tab PO BID PRN 01/01/20 01/01/20 History tamsulosin [Flomax] 0.4 mg PO DAILY 01/01/20 01/01/20 History Past Med/Surg History Medical History Anemia Dialysis patient Pacemaker Social History (System 01/02/20 @ 07:45 by Annabella Leon) Preferred Language: Mongolian Communication Ability: Effective Senior Benefits Analyst Required: No Beliefs That Will Affect Care: None marital status: Current Living Situation: Spouse current occupational status: retired Other Information That Helps Us Care for You: No Feels Safe at Home: Yes Safety Concerns: Feels Safe At This Time Smoking Status: Never smoker Second Hand Exposure: No ; Hx Alcohol Use: No Hx Substance Use: No Review of Systems Review of Systems: As per HPI, all 10 systems reviewed, all other ROS negative Physical Exam Physical Exam: GENERAL: Slightly uncomfortable, obese, no respiratory distress SKIN: Pallor, warm HEENT: Bespectacled, pale palpebral conjunctivae, no ptosis, dry buccal mucosa NECK : Supple, short neck, no tenderness CHEST : Decreased breath sounds, no tenderness HEART : RRR, systolic murmur ABDOMEN: Some distention, minimal hypogastric tenderness EXTREMITIES : Minimal LE swelling, no LE tenderness, no other conspicuous deformities noted NEUROLOGIC : Coherent, no facial asymmetry, no other gross focality Results & Data Results & Data ([facility]) Vital Signs (Past 12 Hours) Vital Signs Temp Pulse Pulse Resp BP BP Pulse Ox 01/01/20 22:00 73 18 122/61 99 01/01/20 21:19 73 20 102/47 L 91 01/01/20 20:45 96 01/01/20 20:04 37.0 C 90 18 122/59 L 96 Laboratory Results Laboratory Results WBC 9.52 K/uL (4.8-10.8) 01/01/20 20:45 RBC 4.53 M/uL (4.7-6.1) L 01/01/20 20:45 Hgb 10.3 g/dL (14.0-18.0) L 01/01/20 20:45 Hct 34.1 % (42-52) L 01/01/20 20:45 MCV 75.3 fL (80-100) L 01/01/20 20:45 MCH 22.7 pg (25-34) L 01/01/20 20:45 MCHC 30.2 g/dL (32-36) L 01/01/20 20:45 RDW Std Deviation 45.1 fL (36.4-46.3) 01/01/20 20:45 RDW Coeff of Gill 16.5 % (11.5-14.5) H 01/01/20 20:45 Plt Count 136 K/uL (130-400) 01/01/20 20:45 Immature Gran % (Auto) 0.2 % 01/01/20 20:45 Neut % (Auto) 81.5 % 01/01/20 20:45 Lymph % (Auto) 10.5 % 01/01/20 20:45 [place] % (Auto) 6.3 % 01/01/20 20:45 Eos % (Auto) 1.3 % 01/01/20 20:45 Baso % (Auto) 0.2 % 01/01/20 20:45 Immature Gran # (Auto) 0.02 K/uL (0.00-0.02) 01/01/20 20:45 Neut # (Auto) 7.76 K/uL (1.4-6.5) H 01/01/20 20:45 Lymph # (Auto) 1.00 K/uL (1.2-3.4) L 01/01/20 20:45 [place] # (Auto) 0.60 K/uL (0.11-0.59) H 01/01/20 20:45 Eos # (Auto) 0.12 K/uL (0-0.5) 01/01/20 20:45 Baso # (Auto) 0.02 K/uL (0-0.2) 01/01/20 20:45 Platelet Estimate Decreased (Normal) L 01/01/20 20:45 Hypochromasia Present 01/01/20 20:45 APTT 32.5 Seconds (21.0-31.0) H 01/01/20 20:45 PTT Ratio 1.2 01/01/20 20:45 Sodium 137 mmol/L (136-145) 01/01/20 20:45 Potassium 3.9 mmol/L (3.5-5.1) 01/01/20 20:45 Chloride 101 mmol/L (98-107) 01/01/20 20:45 Carbon Dioxide 28 mmol/L (21-32) 01/01/20 20:45 Anion Gap 7.0 (3-11) 01/01/20 20:45 BUN 15 mg/dl (7-18) 01/01/20 20:45 Creatinine 4.06 mg/dl (0.6-1.4) H 01/01/20 20:45 Est Cr Clr Drug Dosing 14.9 ml/min 01/01/20 20:45 Est GFR ( Amer) 14.6 01/01/20 20:45 Est GFR (Non-Af Amer) 12.6 01/01/20 20:45 BUN/Creatinine Ratio 3.6 (10-20) L 01/01/20 20:45 Glucose 102 mg/dl (70-99) H 01/01/20 20:45 Calcium 9.2 mg/dl (8.5-10.1) 01/01/20 20:45 Magnesium 1.9 mg/dl (1.8-2.4) 01/01/20 20:45 Total Bilirubin 0.6 mg/dl (0.2-1) 01/01/20 20:45 AST 19 U/L (15-37) 01/01/20 20:45 ALT 11 U/L (12-78) L 01/01/20 20:45 Alkaline Phosphatase 210 U/L (45-117) H 01/01/20 20:45 Troponin I 1.300 ng/ml (0-0.045) H* 01/01/20 20:45 Total Protein 6.6 gm/dl (6.4-8.2) 01/01/20 20:45 Albumin 2.8 gm/dl (3.4-5.0) L 01/01/20 20:45 Globulin 3.8 gm/dl (2.5-4.0) 01/01/20 20:45 Albumin/Globulin Ratio 0.7 (0.9-2) L 01/01/20 20:45 Lipase 29 U/L (73-393) L 01/01/20 20:[address] abdomen pelvis initial read: Rectal wall thickening possible proctitis. Distal colonic diverticulosis. Atrophic kidneys. No bowel obstruction. Cholelithiasis. Cardiomegaly with small pleural effusions. Chest x-ray as per my interpretation cardiomegaly, mild congestion EKG as per my interpretation : Rate 80, paced rhythm
[2020-01-02] MEDS ORDERED: MAGNESIUM HYDROXIDE SUSP 30 ML UDC PO PRN (01:03)
[2020-01-02] MEDS ORDERED: NON-FORMULARY MEDICATION (Acetaminophen [Tylenol] 650 MG) PO PRN (01:03)
[2020-01-02] MEDS ORDERED: NITROGLYCERIN SL 0.4 MG/TAB TAB SL PRN ×2 (01:03)
[2020-01-02] MEDS ORDERED: HYDROmorphone INJ 0.5 MG/0.5 ML SYR IV PRN (01:03)
[2020-01-02] MEDS ORDERED: ACETAMINOPHEN 325 MG TAB PO PRN (01:03)
[2020-01-02] MEDS ORDERED: TRAMADOL HCL 50 MG TABLET PO PRN (01:03)
[2020-01-02] MEDS: DOCUSATE SODIUM/SENNA 50/8.6MG TAB PO SCH ×3 (01:33→21:04)
[2020-01-02 05:51] LABS: Mean Corpuscular Hgb Conc 30.4 g/dL (32-36)
[2020-01-02 06:03] LABS: Hematocrit (blood only) 30.3 % (42-52); Hemoglobin 9.2 g/dL (14.0-18.0); Mean Corpuscular Hemoglobin 22.9 pg (25-34); Mean Corpuscular Volume 75.6 fL (80-100); RDW Coefficient of Variation 16.6 % (11.5-14.5); RDW Standard Deviation 45.4 fL (36.4-46.3); Red Blood Count 4.01 M/uL (4.7-6.1); White Blood Count 10.14 K/uL (4.8-10.8)
[2020-01-02 06:16] LABS: Platelet Count 121 K/uL (130-400)
[2020-01-02 06:18] LABS: Basophils # (auto) 0.02 K/uL (0-0.2); Basophils % (auto) 0.2 %; Eosinophils # (auto) 0.09 K/uL (0-0.5); Eosinophils % (auto) 0.9 %; Hypochromasia Present; Immature Granulocytes # (auto) 0.02 K/uL (0.00-0.02); Immature Granulocytes % (auto) 0.2 %; Lymphocytes # (auto) 0.71 K/uL (1.2-3.4); Monocytes % (auto) 5.9 %; Neutrophils % (auto) 85.8 %; Ovalocytes 1+; Platelet Estimate Decreased (Normal)
[2020-01-02 06:20] LABS: BUN Creatinine Ratio 4.1 (10-20); Calcium 8.5 mg/dl (8.5-10.1); Creatinine Clr Calc Pharmacy 13.7 ml/min; Est GFR (African American) 13.2; Est GFR (Non-African American) 11.4; Potassium 3.9 mmol/L (3.5-5.1)
[2020-01-02 06:37] LABS: Troponin I 1.26 ng/ml (0-0.045)
--- NOTE | 2020-01-02 07:32 | CT Scan Report ---
ABDOMEN AND PELVIS CT WITHOUT CONTRAST CT DOSE: 813.35 mGy.cm HISTORY: Acute generalized abdominal pain with possible small bowel obstruction. poss obstruction TECHNIQUE: Multiaxial CT images of the abdomen and pelvis were performed without contrast. A dose lo wering technique was utilized adhering to the principles of ALARA. COMPARISON STUDY: Chest radiograph of same day FINDINGS: Small pleural effusions. Mild dependent opacities suggest atelectasis. Study is mildly motion degrade d. The study is also limited without the use of contrast. No pneumatosis or pneumoperitoneum identifi ed. Moderate cardiomegaly. Prior median sternotomy. Partially imaged pacer leads with coronary artery calcifications. Scattered calcified granulomata noted throughout the spleen. Mild marginal nodularity of the liver grijalva ggestive of cirrhosis. No ascites. No hepatic mass lesion identified. Mild gallbladder distention wit h layering cholelithiasis. No CT evidence of acute cholecystitis or biliary ductal dilation. Unremark able adrenal glands. Moderate parenchymal atrophy of the pancreas. Severe atrophy of the bilateral na tive kidneys. Probable cyst of the interpolar right kidney, 1.6 cm. There are a few nonobstructing ca lculi of the right kidney measuring up to approximately 3-4 mm. There are a few probable cyst of the left kidney. Nonobstructing calculus of the left kidney are noted with a 2.6 x 2.0 cm staghorn calcul us of the renal pelvis. No obstructive uropathy. Partial distention of the urinary bladder with mild wall thickening. Mild prostamegaly. Extensive calcified plaque the abdominal aorta there is tortuosit y with mild fusiform infrarenal aneurysm dilation, 3.2 x 2.8 cm. No adenopathy. No bowel obstruction. There is moderate circumferential wall thickening of the rectum. Moderate fecal retention is most pronounced within the rectum. Moderate perirectal inflammatory stranding with a fe w prominent scattered lymph nodes of the rectal mesocolon. Colonic diverticulosis without acute diver ticulitis. Noninflamed appendix. Gynecomastia. Mild generalized body wall edema. Demineralized appear ance of the bones with multilevel degenerative changes of the spine, pelvis and hips. Acute or subacu te appearing nondisplaced left greater than right bilateral sacral insufficiency fractures. Additiona lly, there are subacute appearing and comminuted fractures of the bilateral superior and inferior pub ic rami without significant displacement. Age-indeterminate 30% anterior and superior endplate compre ssion deformity of the L1 vertebral body without retropulsion. IMPRESSION: 1. Moderate fecal retention. Moderate circumferential rectal wall thickening with perirectal inflamma tory stranding is suggestive of probable stercoral proctitis. Mildly prominent lymph nodes of the rec juan mesocolon are likely reactive. These findings could be correlated with a follow-up colonoscopy to exclude underlying lesion. 2. Colonic diverticulosis without acute diverticulitis. 3. No bowel obstruction or pneumoperitoneum. 4. Severe atrophy of the [place] kidneys. 5. Nonobstructing bilateral renal calculi with large calculus of the left renal pelvis. 6. Acute versus subacute nondisplaced bilateral sacral insufficiency fractures, left greater than rig ht. Additionally, there are healing subacute appearing nondisplaced and comminuted fractures of the b ilateral superior and inferior pubic rami. Age-indeterminate L1 compression deformity without retropu lsion. These findings were called/faxed to the emergency department at time of dictation. 7. Additional findings as above. ACT 112: Negative or not required by law. The above report was generated using voice recognition software. It may contain grammatical, syntax o r spelling errors. Electronically signed by: Vitaly Cortes M.D. 01/02/2020 7:31 AM
--- NOTE | 2020-01-02 07:34 | XRay Report ---
XR chest 1V portable CLINICAL HISTORY: Nausea and vomiting. COMPARISON STUDY: No previous studies for comparison. FINDINGS: A right subclavian pacer is in place. There are median sternotomy wires and clips from bypa ss grafting. An old healed proximal left humeral fracture is noted. There are trace bilateral pleural effusions. There is mild interstitial pulmonary edema. Moderate cardiomegaly is noted. IMPRESSION: 1. Moderate cardiomegaly. Mild interstitial pulmonary edema. 2. Trace bilateral pleural effusions. ACT 112: Negative or not required by law. Electronically signed by: Evan Maya M.D. 01/02/2020 7:33 AM
[2020-01-02] MEDS: CALCIUM ACETATE 667 MG CAP/TAB PO SCH ×3 (08:46→21:04)
[2020-01-02] MEDS: ASPIRIN 81 MG ECTAB PO SCH (08:46)
[2020-01-02] MEDS: TAMSULOSIN HCL 0.4 MG CAP PO SCH (08:46)
[2020-01-02] MEDS: OXYCODONE HCL IR 5 MG TAB (IMMEDIATE RELEASE) PO SCH ×2 (08:54→21:05)
--- NOTE | 2020-01-02 09:54 | Gastrointestinal Consultation ---
Date of Consultation January 02, 2020 Assessment & Plan (1) Rectal pain: 84 year old male w/ ESRD on dialysis, CHF w/ ischemic cardiomyopathy (EF 30 to 35%, TTE 2019), CAD status post CABG, symptomatic bradycardia status post PPM, history bioprosthetic AVR, HTN, chronic anemia (baseline hemoglobin of 10) ambulatory dysfunction admitted through the ED with constipation, abnormal CTAP w/ proctitis. Of note colonoscopy in 2017 w/ rectal ulcer, stricture, polypoid lesion s/p rectal EUS w/ biopsies negative for malignancy but a 3 month recall was recommended at that time. Yet to obtain recall colonoscopy Will discuss with attending but in the absence of bleeding will likely perform OP colonoscopy. Continue a bowel regimen w/ miralax 1 capful twice daily. Colace 1 capful twice daily. Limit narcotic analgesia Low residue diet. was updated. Thank you for allowing us to participate in the care of this patient. Please call with any acute changes, questions or concerns. Please see addendum below with additional recommendation from my supervising physician. Supervising Physician Co-Signing Physician Notes I performed a history and physical examination of the patient today, including specifically on physical exam - soft abdomen. I have discussed the patient's management with the advanced practitioner. 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 Laxatives. Recall GI if needed. History of Present Illness Reason for Consultation: proctitis Requesting Physician: iKnsey Attending Physician: Chele Euceda MD History of Present Illness 84 year old male with history of CHF w/ ischemic cardiomyopathy (EF 30 to 35%, TTE 2019), CAD status post CABG, symptomatic bradycardia status post PPM, history bioprosthetic AVR, HTN, ESRD on HD, chronic anemia (baseline hemoglobin of 10) ambulatory dysfunction admitted through the ED with constipation, abnormal CTAP w/ proctitis. Pt was seen and evaluated, chart reviewed. Per record, no BM in over one week. In the ED he was disimpacted and had a enema. Per nursing, he has had numerous loose stools but no black/bloody output. Pt denies symptoms this AM but is drowsy. No abd pain or rectal pain reported. No fever, chills, CP, SOB. Was to have a colonoscopy repeat in 2017. CTAP: Moderate fecal retention. 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 Mildly prominent lymph nodes of the rectal mesocolon are likely reactive. These findings could be correlated with a follow-up colonoscopy to exclude underlying lesion.Colonic diverticulosis without acute diverticulitis. No bowel obstruction or pneumoperitoneum. Rectal EUS 2017: Anal stricture found on digital rectal exam. Moderate diverticulosis in the sigmoid colon and in the descending colon. Internal hemorrhoids. A single (solitary) ulcer in the rectum. Biopsied. Cells for cytology obtained. Endosonographic images of the anal canal wereunremarkable.Endosonographic images of the perirectal space were unremarkable. No lymph nodes were seen in the perirectal region and in the left iliac region during endosonographicexamination of the rectum.Local wall thickening was visualizedendosonographically in the rectum. This was due to increased thickness of the deep mucosa (Layer 2). [place] aspiration performed. If malignancy identified will refer to colorectal surgery. Colonoscopy 2017: abnormal perianal exam consistent with endoscopic findings.- Three medium polyps in the cecum, removed with a hot snare. Resected and retrieved.-One 8 mm polyp at 20 cm proximal to the anus, removed with a hot snare. Resected and retrieved.-Rule out malignancy, polypoid lesion in the rectum. Biopsied.-Diverticulosis in the sigmoid colon and in the descending colon Allergies Allergy/AdvReac Type Severity Reaction Status Date / Time No Known Drug Allergies Allergy Unknown . Verified 01/02/20 07:45 Home Medications Home Medications Medication Instructions Recorded Confirmed Type calcium acetate(phosphat bind) 667 1,334 mg PO TIDM cap 04/02/19 11/19/19 Histo ry mg capsule tamsulosin 0.4 mg capsule 0.4 mg PO HS #90 cap 04/02/19 11/19/19 History oxycodone-acetaminophen 5 mg-325 1 tab PO BID #60 tab 11/05/19 11/19/19 Rx mg tablet aspirin [Aspirin Low Dose] 81 mg PO DAILY 11/19/19 11/19/19 History atorvastatin 40 mg PO DAILY 11/19/19 11/19/19 History nitroglycerin [Nitrostat] 0.4 mg SUBLINGUAL UD PRN 11/19/19 11/19/19 History Prune Juice 1 dose PO UD PRN 01/01/20 01/01/20 History acetaminophen [Tylenol] 650 mg PO Q6 PRN 01/01/20 01/01/20 History aspirin [Aspir-81] 81 mg PO DAILY 01/01/20 01/01/20 History atorvastatin 40 mg PO HS 01/01/20 01/01/20 History calcium acetate 1,334 mg PO TIDM 01/01/20 01/01/20 History magnesium hydroxide [Milk of 30 ml PO DIRECTED PRN 01/01/20 01/01/20 History Magnesia] nitroglycerin [Nitrostat] 0.4 mg SUBLINGUAL UD PRN 01/01/20 01/01/20 History oxycodone 5 mg PO Q8H PRN 01/01/20 01/01/20 History oxycodone-acetaminophen [Percocet] 1 tab PO BID PRN 01/01/20 01/01/20 History tamsulosin [Flomax] 0.4 mg PO DAILY 01/01/20 01/01/20 History Patient History Medical History Anemia 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) ASCVD (arteriosclerotic cardiovascular disease) (Chronic) BPH (benign prostatic hyperplasia) (Chronic) Bullous pemphigoid (Chronic) Dialysis patient Dyslipidemia (Chronic) ESRD on dialysis (Chronic) HTN (hypertension) (Chronic) Pacemaker (Chronic) Pacemaker Renal calculi (Chronic) Surgical History Aortic valve replaced (Chronic) H/O inguinal hernia repair (Chronic) History of cataract surgery (Chronic) History of tonsillectomy (Chronic) Hx of CABG (Chronic) Family History Other Coronary heart disease Hypertension Stroke Social History Preferred Language: Greenlandic Communication Ability: Effective Dry Drug Worker Required: No Beliefs That Will Affect Care: None marital status: Current Living Situation: Spouse current occupational status: retired Other Information That Helps Us Care for You: No Feels Safe at Home: Yes Safety Concerns: Feels Safe At This Time Smoking Status: Never smoker Second Hand Exposure: No ; Hx Alcohol Use: No Hx Substance Use: No Review of Systems Constitutional: no fever Respiratory: no cough Cardiovascular: no chest pain Gastrointestinal: no abdominal pain Physical Exam Constitutional: + ill appearing; no acute distress Neck: trachea midline Respiratory: normal respiratory effort Cardiovascular: Rate/Rhythm: regular rate Gastrointestinal (Abdomen): Percussion/Palpation: abdomen soft; abdomen nontender, no guarding and abdomen not rigid Skin: no rashes, warm and dry Results & Data ([facility]) Vital Signs (Past 12 Hours) Vital Signs Temp Pulse Resp BP Pulse Ox Pulse Ox 01/02/20 07:07 36.5 C 70 18 104/57 L 96 01/02/20 03:49 36.7 C 79 20 121/75 94 01/02/20 01:03 93 01/02/20 01:00 36.5 C 88 20 120/68 93 01/01/20 23:53 100 H 18 124/76 97 01/01/20 22:00 73 18 122/61 99 Laboratory Results 01/02/20 01/02/20 01/01/20 Range/Units 05:33 05:33 23:13 WBC 10.14 (4.8-10.8) K/uL RBC 4.01 L (4.7-6.1) M/uL Hgb 9.2 L (14.0-18.0) g/dL Hct 30.3 L (42-52) % MCV 75.6 L (80-100) fL MCH 22.9 L (25-34) pg MCHC 30.4 L (32-36) g/dL RDW Std Deviation 45.4 (36.4-46.3) fL RDW Coeff of Gill 16.6 H (11.5-14.5) % Plt Count 121 L (130-400) K/uL Immature Gran % (Auto) 0.2 % Neut % (Auto) 85.8 % Lymph % (Auto) 7.0 % [place] % (Auto) 5.9 % Eos % (Auto) 0.9 % Baso % (Auto) 0.2 % Immature Gran # (Auto) 0.02 (0.00-0.02) K/uL Neut # (Auto) 8.70 H (1.4-6.5) K/uL Lymph # (Auto) 0.71 L (1.2-3.4) K/uL [place] # (Auto) 0.60 H (0.11-0.59) K/uL Eos # (Auto) 0.09 (0-0.5) K/uL Baso # (Auto) 0.02 (0-0.2) K/uL Platelet Estimate Decreased L (Normal) Hypochromasia Present Ovalocytes 1+ APTT (21.0-31.0) Seconds PTT Ratio Sodium 137 (136-145) mmol/L Potassium 3.9 (3.5-5.1) mmol/L Chloride 104 (98-107) mmol/L Carbon Dioxide 26 (21-32) mmol/L Anion Gap 7.0 (3-11) BUN 18 (7-18) mg/dl Creatinine 4.41 H D (0.6-1.4) mg/dl Est Cr Clr Drug Dosing 13.7 ml/min Est GFR ( Amer) 13.2 Est GFR (Non-Af Amer) 11.4 BUN/Creatinine Ratio 4.1 L (10-20) Glucose 92 (70-99) mg/dl Calcium 8.5 (8.5-10.1) mg/dl Magnesium (1.8-2.4) mg/dl Total Bilirubin (0.2-1) mg/dl AST (15-37) U/L ALT (12-78) U/L Alkaline Phosphatase (45-117) U/L Troponin I 1.260 H* 1.300 H* (0-0.045) ng/ml Total Protein (6.4-8.2) gm/dl Albumin (3.4-5.0) gm/dl Globulin (2.5-4.0) gm/dl Albumin/Globulin Ratio (0.9-2) Triglycerides 66 (0-150) mg/dl Cholesterol 93 (0-200) mg/dl LDL Cholesterol, Calc 31 mg/dl VLDL Cholesterol, Calc 13 mg/dl HDL Cholesterol 49 mg/dl Cholesterol/HDL Ratio 2 Lipase (73-393) U/L 01/01/20 01/01/20 01/01/20 Range/Units 20:45 20:45 20:45 WBC 9.52 (4.8-10.8) K/uL RBC 4.53 L (4.7-6.1) M/uL Hgb 10.3 L (14.0-18.0) g/dL Hct 34.1 L (42-52) % MCV 75.3 L (80-100) fL MCH 22.7 L (25-34) pg MCHC 30.2 L (32-36) g/dL RDW Std Deviation 45.1 (36.4-46.3) fL RDW Coeff of Gill 16.5 H (11.5-14.5) % Plt Count 136 (130-400) K/uL Immature Gran % (Auto) 0.2 % Neut % (Auto) 81.5 % Lymph % (Auto) 10.5 % [place] % (Auto) 6.3 % Eos % (Auto) 1.3 % Baso % (Auto) 0.2 % Immature Gran # (Auto) 0.02 (0.00-0.02) K/uL Neut # (Auto) 7.76 H (1.4-6.5) K/uL Lymph # (Auto) 1.00 L (1.2-3.4) K/uL [place] # (Auto) 0.60 H (0.11-0.59) K/uL Eos # (Auto) 0.12 (0-0.5) K/uL Baso # (Auto) 0.02 (0-0.2) K/uL Platelet Estimate Decreased L (Normal) Hypochromasia Present Ovalocytes APTT 32.5 H (21.0-31.0) Seconds PTT Ratio 1.2 Sodium 137 (136-145) mmol/L Potassium 3.9 (3.5-5.1) mmol/L Chloride 101 (98-107) mmol/L Carbon Dioxide 28 (21-32) mmol/L Anion Gap 7.0 (3-11) BUN 15 (7-18) mg/dl Creatinine 4.06 H (0.6-1.4) mg/dl Est Cr Clr Drug Dosing 14.9 ml/min Est GFR ( Amer) 14.6 Est GFR (Non-Af Amer) 12.6 BUN/Creatinine Ratio 3.6 L (10-20) Glucose 102 H (70-99) mg/dl Calcium 9.2 (8.5-10.1) mg/dl Magnesium 1.9 (1.8-2.4) mg/dl Total Bilirubin 0.6 (0.2-1) mg/dl AST 19 (15-37) U/L ALT 11 L (12-78) U/L Alkaline Phosphatase 210 H (45-117) U/L Troponin I 1.300 H* (0-0.045) ng/ml Total Protein 6.6 (6.4-8.2) gm/dl Albumin 2.8 L (3.4-5.0) gm/dl Globulin 3.8 (2.5-4.0) gm/dl Albumin/Globulin Ratio 0.7 L (0.9-2) Triglycerides (0-150) mg/dl Cholesterol (0-200) mg/dl LDL Cholesterol, Calc mg/dl VLDL Cholesterol, Calc mg/dl HDL Cholesterol mg/dl Cholesterol/HDL Ratio Lipase 29 L (73-393) U/L
--- NOTE | 2020-01-02 11:40 | Nephrology Consultation ---
Date of Consultation January 02, 2020 Assessment & Plan (1) ESRD on dialysis: Mr. Poon has at least an 8-year history of end-stage renal disease and has been on maintenance dialysis. He has generalized ASCVD. He has significant osteoarthritis. Superimposed on that, he has a history of recent falls with multiple fractures. He is currently a resident at [facility]. There he is getting physical therapy but is also getting analgesics for his pain. He has developed significant constipation which is been an intermittent issue for him over the years. He presented with evidence of a fecal impaction that has been resolved and he has now feeling much better and back to his baseline. Currently, plans are for him to be discharged back to [facility] today. Today is his usual day for hemodialysis. At the current time, what is holding up his discharge is waiting for an echocardiogram that was done because of his elevated but stable troponin. It would likely be unchanged from those previously noted. If so, I have made arrangements for him to be transferred directly to the dialysis unit in [place] for his usual treatment. They will be able to arrange transportation for him to return to the long-term after his treatment. However, if changes are noted on his echocardiogram he may need to stay for further evaluation. If so, I will arrange for him to have his hemodialysis treatment here later today. Upon discharge, he will continue to receive his usual dialysis treatments at [facility] in [place] and continue on his usual diet and medications. Thank you for involving me in his inpatient care History of Present Illness Attending Physician: Mr. Poon is an 84-year-old gentleman that I have followed for the past 2 years. He has end-stage renal disease and has been on maintenance dialysis since 2011. The etiology of his end-stage renal disease is likely mixed. He does have a history of a staghorn calculus contributing to atrophy of the left kidney. There is no history of recognized upper urinary tract infections involving the left kidney. Additionally, there has been no evidence of renovascular disease despite his history of generalized cardiovascular disease. He also has a history of hydroureteronephrosis involving the right kidney. Small stones have been recognized as being in the right kidney. However, there was no staghorn calculus on the right and no history of right-sided bacterial pyelonephritis. He presented to this hospital in October 2011. At that time his renal function was minimal and he was started on maintenance dialysis. His school age program associate at that time was Dr. Tito Call. Since on dialysis he is done relatively well. Unfortunately, he has had several falls in the past that resulted in fractures of his ribs, left humerus, L1, sacrum and pelvis. He is currently recovering from his most recent fractures involving the sacrum as well as the superior and inferior pubic rami. He is currently a resident at the [facility] where he is recuperating and getting regular physical therapy. He dialyzes 3 times a week at [facility] in [place]. Dialysis treatments have been uncomplicated. He dialyzes using a 180 dialyzer for 3 hours and 45 minutes per treatment. He gets heparin and a loading dose of 3000 units and gets an additional 1000 units/h. He dialyzes with a blood flow rate of 450 mL's per minute and a dialysate flow rate of 800. His dry weight has been approximately 94 kg. His dialysate is a 2 potassium, 2 calcium bath with a sodium of 140 and bicarbonate of 28. His dialysis access is a left upper arm AV fistula. We used 15-gauge needles for his treatments. Home medications include an 81 mg aspirin daily, atorvastatin 40 mg taken at bedtime, calcium acetate 667 mg 2 capsules with each meal, sublingual nitroglycerin as needed chest pain, Percocet 5/325 1 once or twice a day and a pro-renal multivitamin daily. Additionally, he takes tamsulosin 0.4 mg daily in the evening. Associated medical conditions include a longstanding history of hypertension although his blood pressure has been well controlled on dialysis. He has a history of ASCVD with significant coronary artery disease. He had a coronary artery bypass surgery done x4 in 2007. He also had an aortic valve replacement at that time with a bioprosthetic valve. 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 He is followed by Dr. Bjorn Wheat and Dr. Charly Kunz for his heart disease and pacemaker. He has a history of atrial fibrillation his cardiac rhythm has been regular of late. His only anticoagulation is the 81 mg aspirin a day as well as the heparin that he gets with dialysis treatments. Within recent weeks he is complained of intermittent episodes of nausea and loss of appetite without associated abdominal pain, hematemesis or melena. We have tried to schedule him for an upper GI series although that has been canceled recently related to the current coronavirus pandemic. He was admitted here in early November of this year after suffering another fall while going into the dialysis unit. He had significant pain. X-ray showed evidence of fractures, bilaterally of the superior and inferior pubic rami and an L1 compression fracture. More recently, it was also noted that he suffered a fracture of his sacrum. All of these are nondisplaced. They were associated with significant pain and he has been getting Percocet for that pain. He was admitted here for his initial care. He was then transferred to the [facility] for care and physical therapy. While at [facility], he has had intermittent problems with abdominal discomfort and nausea. He has been somewhat constipated. He says that for the week prior to his admission he did not have a bowel movement. He began to develop increasing symptoms of nausea, abdominal pain, rectal pain, a further loss of his appetite and occasional vomiting. Finally, it was decided to send him to the emergency room because of his discomfort. Prior to leaving [facility], according to the patient, he did receive a cathartic. A CT scan done in the emergency room showed evidence of fecal retention and rectal wall thickening but no evidence of a bowel obstruction. There were no other intra-abdominal masses. His kidneys were atrophic. He was also noted to have acute or subacute nondisplaced sacral fractures as well as healing fractures of the bilateral superior and inferior pubic rami and L1 compression fracture. In the emergency room, he got a soapsuds enema as well as a milk of molasses enema. He had a voluminous bowel movement and now feels dramatically better. His abdominal and rectal discomforts have resolved. His last colonoscopy was in 2017. It showed evidence of a rectal ulcer, stricture and polypoid lesion. Biopsies were negative for malignancy. It was recommended that he have a follow-up in 3 months but that was never ordered or done. Currently, he is asymptomatic. He says that his appetite is returning. He is not having any abdominal pain. Also noted at the time of admission was an elevated troponin of 1.3. He has had elevated troponins in the past. He does have a history of congestive heart failure and elevated troponins have been associated with any symptoms of shortness of breath. A recent myocardial infarction has not been documented. Currently, troponin has been stable and an echocardiogram is pending. If that is unchanged from his prior studies and there are no new wall motion abnormalities, then he is capable of being discharged. Allergies: No known medication allergies. The remainder of his past medical history, family history and review of systems is unremarkable. Of note is the fact that he has had hypochromic and microcytic indices on his CBC. A recent ferritin was 1585 and his transferrin saturation was 31%. These were done through the dialysis unit. Allergies Allergy/AdvReac Type Severity Reaction Status Date / Time No Known Drug Allergies Allergy Unknown . Verified 01/02/20 07:45 Home Medications Home Medications Medication Instructions Recorded Confirmed Type calcium acetate(phosphat bind) 667 1,334 mg PO TIDM cap 04/02/19 11/19/19 History mg capsule tamsulosin 0.4 mg capsule 0.4 mg PO HS #90 cap 04/02/19 11/19/19 History oxycodone-acetaminophen 5 mg-325 1 tab PO BID #60 tab 11/05/19 11/19/19 Rx mg tablet aspirin [Aspirin Low Dose] 81 mg PO DAILY 11/19/19 11/19/19 History atorvastatin 40 mg PO DAILY 11/19/19 11/19/19 History nitroglycerin [Nitrostat] 0.4 mg SUBLINGUAL UD PRN 11/19/19 11/19/19 History Prune Juice 1 dose PO UD PRN 01/01/20 01/01/20 History acetaminophen [Tylenol] 650 mg PO Q6 PRN 01/01/20 01/01/20 History aspirin [Aspir-81] 81 mg PO DAILY 01/01/20 01/01/20 History atorvastatin 40 mg PO HS 01/01/20 01/01/20 History calcium acetate 1,334 mg PO TIDM 01/01/20 01/01/20 History magnesium hydroxide [Milk of 30 ml PO DIRECTED PRN 01/01/20 01/01/20 History Magnesia] nitroglycerin [Nitrostat] 0.4 mg SUBLINGUAL UD PRN 01/01/20 01/01/20 History oxycodone 5 mg PO Q8H PRN 01/01/20 01/01/20 History oxycodone-acetaminophen [Percocet] 1 tab PO BID PRN 01/01/20 01/01/20 History tamsulosin [Flomax] 0.4 mg PO DAILY 01/01/20 01/01/20 History Patient History Medical History Anemia Dialysis patient Pacemaker Social History (System 01/02/20 @ 07:45 by Annabella Leon) Preferred Language: Occitan Communication Ability: Effective 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 Poon appears as a somewhat ch ronically ill elderly gentleman who was in no distress when seen by me. He was awake, alert and oriented at rest. He did not appear to be in any distress. He certainly recognized me. His blood pressure was 104/57 in the right arm supine. His pulse is 70 and regular. Respiratory rate is 18 and nonlabored with a pulse ox of 96% on room air. He is afebrile (36.5 C). His skin shows normal skin turgor. He has no rash or infiltrative skin disease other than changes of mild venous stasis dermatitis on his distal lower extremities. He has scars from prior surgical procedures including a midsternal scar from coronary artery bypass surgery and a scar beneath the distal right clavicle from his pacemaker. He has a left upper arm AV fistula with a scar in the left antecubital fossa from the creation of the fistula as well as multiple dialysis needle track villalobos over the fistula. He has a scar from a left inguinal herniorrhaphy. He has no palpable lymphadenopathy. His head is normal. Eyes are grossly normal. The ocular fundi were not examined. Ears, nose, mouth and throat show the following: He was not wearing his hearing aids when seen by me and did have some difficulty hearing, he also has multiple missing teeth, his oral mucous membranes are moist. His neck is supple. He has no jugular venous distention, carotid bruit or thyromegaly. His chest is clear to auscultation. Diaphragms are somewhat elevated related to his body habitus and his positioning. I hear no wheezes, rales or rhonchi. Cardiac exam shows a regular rhythm. He has normal bioprosthetic valve sounds. I do not hear a murmur or gallop. His abdomen is a bit obese. It is currently nontender. He has no obvious organomegaly or mass. Bowel sounds are normal. Genital and rectal exams were not done. Extremities show no cyanosis or clubbing. There is no current peripheral edema. His AV fistula functions well in the left upper arm. Peripheral pulses are diminished but present. I do not hear femoral bruits. His neurologic exam shows him to be alert and oriented. He has no lateralizing changes. Deep tendon reflexes are equal and symmetrical although ankle jerks are diminished. His sensory exam seem normal to pain and light touch. Results & Data Vital Signs (Past 12 Hours) Vital Signs Temp Pulse Pulse Resp BP Pulse Ox Pulse Ox 01/02/20 10:57 36.8 C 76 19 109/64 95 01/02/20 09:01 71 01/02/20 07:07 36.5 C 70 18 104/57 L 96 01/02/20 03:49 36.7 C 79 20 121/75 94 01/02/20 01:03 93 01/02/20 01:00 36.5 C 88 20 120/68 93 01/01/20 23:53 100 H 18 124/76 97 Laboratory Results Laboratory Results - last 24 hr 01/01/20 01/01/20 01/01/20 20:45 20:45 20:45 WBC 9.52 RBC 4.53 L Hgb 10.3 L Hct 34.1 L MCV 75.3 L MCH 22.7 L MCHC 30.2 L RDW Std Deviation 45.1 RDW Coeff of Gill 16.5 H Plt Count 136 Immature Gran % (Auto) 0.2 Neut % (Auto) 81.5 Lymph % (Auto) 10.5 Zapata % (Auto) 6.3 Eos % (Auto) 1.3 Baso % (Auto) 0.2 Immature Gran # (Auto) 0.02 Neut # (Auto) 7.76 H Lymph # (Auto) 1.00 L Zapata # (Auto) 0.60 H Eos # (Auto) 0.12 Baso # (Auto) 0.02 Platelet Estimate Decreased L Hypochromasia Present Ovalocytes APTT 32.5 H PTT Ratio 1.2 Sodium 137 Potassium 3.9 Chloride 101 Carbon Dioxide 28 Anion Gap 7.0 BUN 15 Creatinine 4.06 H Est Cr Clr Drug Dosing 14.9 Est GFR ( Amer) 14.6 Est GFR (Non-Af Amer) 12.6 BUN/Creatinine Ratio 3.6 L Glucose 102 H Calcium 9.2 Magnesium 1.9 Total Bilirubin 0.6 AST 19 ALT 11 L Alkaline Phosphatase 210 H Troponin I 1.300 H* Total Protein 6.6 Albumin 2.8 L Globulin 3.8 Albumin/Globulin Ratio 0.7 L Triglycerides Cholesterol LDL Cholesterol, Calc VLDL Cholesterol, Calc HDL Cholesterol Cholesterol/HDL Ratio Lipase 29 L 01/01/20 01/02/20 01/02/20 23:13 05:33 05:33 WBC 10.14 RBC 4.01 L Hgb 9.2 L Hct 30.3 L MCV 75.6 L MCH 22.9 L MCHC 30.4 L RDW Std Deviation 45.4 RDW Coeff of Gill 16.6 H Plt Count 121 L Immature Gran % (Auto) 0.2 Neut % (Auto) 85.8 Lymph % (Auto) 7.0 Zapata % (Auto) 5.9 Eos % (Auto) 0.9 Baso % (Auto) 0.2 Immature Gran # (Auto) 0.02 Neut # (Auto) 8.70 H Lymph # (Auto) 0.71 L Zapata # (Auto) 0.60 H Eos # (Auto) 0.09 Baso # (Auto) 0.02 Platelet Estimate Decreased L Hypochromasia Present Ovalocytes 1+ APTT PTT Ratio Sodium 137 Potassium 3.9 Chloride 104 Carbon Dioxide 26 Anion Gap 7.0 BUN 18 Creatinine 4.41 H D Est Cr Clr Drug Dosing 13.7 Est GFR ( Amer) 13.2 Est GFR (Non-Af Amer) 11.4 BUN/Creatinine Ratio 4.1 L Glucose 92 Calcium 8.5 Magnesium Total Bilirubin AST ALT Alkaline Phosphatase Troponin I 1.300 H* 1.260 H* Total Protein Albumin Globulin Albumin/Globulin Ratio Triglycerides 66 Cholesterol 93 LDL Cholesterol, Calc 31 VLDL Cholesterol, Calc 13 HDL Cholesterol 49 Cholesterol/HDL Ratio 2 Lipase PG Care Time/CCT Total # of Minutes Spent Total Time Spent: 90 Total Time Spent with Patient: Total time spent is greater than 50% in coordination of care (as documented) at patient's floor/unit and/or counseling patient: Coding Level of Care Code 12361 Inpt Consult Level 5 Diagnoses ESRD on dialysis N18.6; Z99.2 Time Spent (min) 90
[2020-01-02] MEDS ORDERED: HEPARIN SOD (PORCINE) 1000 UNIT/ML 10 ML VIAL IV ONE (12:08)
[2020-01-02] MEDS ORDERED: SODIUM CHLORIDE 0.9% 1000ML 1,000 ML IV PRN (12:08)
--- NOTE | 2020-01-02 14:47 | XCELERA ---
[id number] [id number]
--- NOTE | 2020-01-02 14:48 | Orthopedic Consultation ---
Date of Consultation January 02, 2020 Assessment & Plan (1) Closed fracture of symphysis pubis: We can treat these fractures nonoperatively. He can be up and weightbearing as tolerated. Usually it takes about 6 to 8 weeks for the fractures to fully heal. He is likely already 4 weeks into the healing process. He is not having too much pain. I do encourage him to get up with physical therapy. Present on Admission?: Yes History of Present Illness Reason for Consultation: Pelvic fractures Attending Physician: Chele Euceda MD History of Present Illness Javier is a pleasant 84-year-old male who I saw in the hospital 4 weeks ago after mechanical fall. He had some pubic rami fractures. We treated him conservatively. He normally ambulates with a walker but he walks very little. He went to [facility] upon discharge. They were giving him narcotic medications for pain control. Unfortunately he is developed constipation. He is also been having some cardiac symptoms. He came back to the hospital and was admitted to the medical service. A CT scan of his abdomen and pelvis showed healing pelvic fractures and a possible new sacral ala fracture. Orthopedics was consulted to evaluate and treat. Allergies Allergy/AdvReac Type Severity Reaction Status Date / Time No Known Drug Allergies Allergy Unknown . Verified 01/02/20 07:45 Home Medications Home Medications Medication Instructions Recorded Confirmed Type calcium acetate(phosphat bind) 667 1,334 mg PO TIDM cap 04/02/19 11/19/19 History mg capsule tamsulosin 0.4 mg capsule 0.4 mg PO HS #90 cap 04/02/19 11/19/19 History oxycodone-acetaminophen 5 mg-325 1 tab PO BID #60 tab 11/05/19 11/19/19 Rx mg tablet aspirin [Aspirin Low Dose] 81 mg PO DAILY 11/19/19 11/19/19 History atorvastatin 40 mg PO DAILY 11/19/19 11/19/19 History nitroglycerin [Nitrostat] 0.4 mg SUBLINGUAL UD PRN 11/19/19 11/19/19 History Prune Juice 1 dose PO UD PRN 01/01/20 01/01/20 History acetaminophen [Tylenol] 650 mg PO Q6 PRN 01/01/20 01/01/20 History aspirin [Aspir-81] 81 mg PO DAILY 01/01/20 01/01/20 History atorvastatin 40 mg PO HS 01/01/20 01/01/20 History calcium acetate 1,334 mg PO TIDM 01/01/20 01/01/20 History magnesium hydroxide [Milk of 30 ml PO DIRECTED PRN 01/01/20 01/01/20 History Magnesia] nitroglycerin [Nitrostat] 0.4 mg SUBLINGUAL UD PRN 01/01/20 01/01/20 History oxycodone 5 mg PO Q8H PRN 01/01/20 01/01/20 History oxycodone-acetaminophen [Percocet] 1 tab PO BID PRN 01/01/20 01/01/20 History tamsulosin [Flomax] 0.4 mg PO DAILY 01/01/20 01/01/20 History Patient History Medical History Anemia 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) ASCVD (arteriosclerotic cardiovascular disease) (Chronic) BPH (benign prostatic hyperplasia) (Chronic) Bullous pemphigoid (Chronic) Dialysis patient Dyslipidemia (Chronic) ESRD on dialysis (Chronic) HTN (hypertension) (Chronic) Pacemaker (Chronic) Pacemaker Renal calculi (Chronic) Surgical History Aortic valve replaced (Chronic) H/O inguinal hernia repair (Chronic) History of cataract surgery (Chronic) History of tonsillectomy (Chronic) Hx of CABG (Chronic) Family History Other Coronary heart disease Hypertension Stroke Social History Preferred Language: Ukrainian Communication Ability: Effective Insole Bottom Filler Required: No Beliefs That Will Affect Care: None marital status: Current Living Situation: Spouse current occupational status: retired Other Information That Helps Us Care for You: No Feels Safe at Home: Yes Safety Concerns: Feels Safe At This Time Smoking Status: Never smoker Second Hand Exposure: No ; Hx Alcohol Use: No Hx Substance Use: No Review of Systems Review of Systems: All systems reviewed & are unremarkable except as noted in HPI & below Physical Exam Constitutional: WD/WN, vitals as above Eyes: PERRL, conjunctivae normal, anicteric sclerae ENMT: external ear and nose normal, oropharynx normal Neck: trachea midline, no thyromegaly Respiratory: normal respiratory effort Cardiovascular: RRR, no murmur, no edema Gastrointestinal (Abdomen): normal bowel sounds, soft, nontender, no hepatosplenomegaly Musculoskeletal: On physical examination of the pelvis, he does not have much pain to palpation in the area of the symphysis. He does not have any pain with range of motion of his hips. His leg lengths are equal. He is neurovascularly intact of his lower extremities. He denies any tenderness palpation along his sacrum or his lower lumbar spine. Psychiatric: A+Ox3, euthymic affect Results & Data ([facility]) Vital Signs (Past 12 Hours) Vital Signs Temp Pulse Pulse Resp BP Pulse Ox 01/02/20 10:57 36.8 C 76 19 109/64 95 01/02/20 09:01 71 01/02/20 07:07 36.5 C 70 18 104/57 L 96 01/02/20 03:49 36.7 C 79 20 121/[address] scan reviewed by myself with radiology interpretation does show healing fractures of both the left and the right superior and inferior pubic rami. There is a questionable sacral ala fracture which is worse on the left. All fractures are nondisplaced. PG Care Time/CCT Total # of Minutes Spent Total Time Spent with Patient: Total time spent is greater than 50% in coordination of care (as documented) at patient's floor/unit and/or counseling patient: Coding Level of Care Code 42305 Initial Inpt Care Lvl 3 Diagnoses Closed fracture of symphysis pubis S32.591A Encounter type: initial encounter Laterality: right (1) Closed fracture of symphysis pubis Encounter type: initial encounter Laterality: right Qualified Code(s): S32.591A - Other specified fracture of right pubis, initial encounter for closed fracture
--- NOTE | 2020-01-02 15:48 | Cardiology Consultation ---
Date of Consultation January 02, 2020 Assessment & Plan (1) Troponin level elevated: Patient does have very mildly elevated cardiac biomarkers. However, this degree of elevation was seen previously and in fact is lower than during an admission in October of 2018. He did not present with any symptoms consistent with an acute coronary syndrome. He is not currently having chest pain. On his echocardiogram is notably abnormal I do not believe this represents a significant change from prior or likely indicative of recent acute coronary syndrome. Given his degree of LV dysfunction and renal dysfunction, I do not believe this is a significantly abnormal elevation nor does he require any spec [facility] intervention or evaluation. (2) Ischemic cardiomyopathy: He has severely reduced LV systolic function. He had previously been on metoprolol but this appears to have been discontinued, possibly due to symptomatic hypotension. If his blood pressure tolerates that he would be best served by metoprolol succinate. Mike inhibition could also be considered if his blood pressure is adequate. No concerns over renal dysfunction given his need for renal replacement therapy. His degree of LV dysfunction also qualifies him for an ICD as primary prevention against sudden cardiac . However, given his advanced age and need for dialysis the potential benefit of an ICD is limited. I would not recommend evaluation for an ICD currently. (3) Symptomatic bradycardia: He has a normally functioning dual-chamber permanent pacemaker. He does pace in the ventricle nearly all the time. This likely has some deleterious effects on LV function over time. For many patients we would recommend upgrade to a biventricular device. However, given his poor functional status currently an absence of decompensated heart failure think this can be deferred or discussion in the outpatient setting. (4) ASCVD (arteriosclerotic cardiovascular disease): Elevated biomarkers but no symptoms consistent with coronary insufficiency, angina or an acute coronary syndrome. He has been maintained on a daily aspirin and atorvastatin. Addition of a beta-charan were also have some benefit of his blood pressure tolerates. Metoprolol succinate would be the drug of choice. Carvedilol at a low dose could also be considered. History of Present Illness Reason for Consultation: Elevated troponin Requesting Physician: Kinsey Attending Physician: Chele Euceda MD History of Present Illness Patient is an 84-year-old gentleman with a history of an ischemic cardiomyop athy, coronary artery disease, symptomatic bradycardia status post permanent pacemaker, aortic valve disease status post transcutaneous aortic valve replacement and renal failure currently on renal replacement therapy who presented to the emergency room with constipation. Patient recently suffered a lumbar fracture and has had some difficulty with pain control and ambulation. He is currently in a nursing facility and receiving narcotics. He has struggled with constipation is believed to be related to narcotic use and poor mobility. Cardiology was asked to see the patient for elevated troponin in the setting of constipation and multiple cardiac conditions. Patient has been less mobile recently due to his fracture. Does report being somewhat ambulatory at times. A lot of his difficulty with walking appears to be related to fear of falling again. He reports some dyspnea at times. This is occasionally exertional but sometimes related to anxiety. He has not report symptoms of chest discomfort. He did not have chest discomfort or chest pain leading up to his admission currently. Patient did have an enema on his currently feeling better. He denies abdominal pain currently. Denies breathing trouble currently. He is not currently having chest discomfort. Allergies Allergy/AdvReac Type Severity Reaction Status Date / Time No Known Drug Allergies Allergy Unknown . Verified 01/02/20 07:45 Home Medications Home Medications Medication Instructions Recorded Confirmed Type calcium acetate(phosphat bind) 667 1,334 mg PO TIDM cap 04/02/19 11/19/19 History mg capsule tamsulosin 0.4 mg capsule 0.4 mg PO HS #90 cap 04/02/19 11/19/19 History oxycodone-acetaminophen 5 mg-325 1 tab PO BID #60 tab 11/05/19 11/19/19 Rx mg tablet aspirin [Aspirin Low Dose] 81 mg PO DAILY 11/19/19 11/19/19 History atorvastatin 40 mg PO DAILY 11/19/19 11/19/19 History nitroglycerin [Nitrostat] 0.4 mg SUBLINGUAL UD PRN 11/19/19 11/19/19 History Prune Juice 1 dose PO UD PRN 01/01/20 01/01/20 History acetaminophen [Tylenol] 650 mg PO Q6 PRN 01/01/20 01/01/20 History aspirin [Aspir-81] 81 mg PO DAILY 01/01/20 01/01/20 History atorvastatin 40 mg PO HS 01/01/20 01/01/20 History calcium acetate 1,334 mg PO TIDM 01/01/20 01/01/20 History magnesium hydroxide [Milk of 30 ml PO DIRECTED PRN 01/01/20 01/01/20 History Magnesia] nitroglycerin [Nitrostat] 0.4 mg SUBLINGUAL UD PRN 01/01/20 01/01/20 History oxycodone 5 mg PO Q8H PRN 01/01/20 01/01/20 History oxycodone-acetaminophen [Percocet] 1 tab PO BID PRN 01/01/20 01/01/20 History tamsulosin [Flomax] 0.4 mg PO DAILY 01/01/20 01/01/20 History Patient History Medical History Anemia 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) ASCVD (arteriosclerotic cardiovascular disease) (Chronic) BPH (benign prostatic hyperplasia) (Chronic) Bullous pemphigoid (Chronic) Dialysis patient Dyslipidemia (Chronic) ESRD on dialysis (Chronic) HTN (hypertension) (Chronic) Pacemaker (Chronic) Pacemaker Renal calculi (Chronic) Surgical History Aortic valve replaced (Chronic) H/O inguinal hernia repair (Chronic) History of cataract surgery (Chronic) History of tonsillectomy (Chronic) Hx of CABG (Chronic) Family History Other Coronary heart disease Hypertension Stroke Social History Preferred Language: Beninese Communication Ability: Effective Casino Change Attendant Required: No Beliefs That Will Affect Care: None marital status: Current Living Situation: Spouse current occupational status: retired Other Information That Helps Us Care for You: No Feels Safe at Home: Yes Safety Concerns: Feels Safe At This Time Smoking Status: Never smoker Second Hand Exposure: No ; Hx Alcohol Use: No Hx Substance Use: No Review of Systems Review of Systems: All systems reviewed & are unremarkable except as noted in HPI & below Physical Exam Physical Exam: The patient is alert and oriented. Mood and affect appeared normal. He answered all questions appropriately. HEENT: Pupils are equal and reactive to light and accommodation. Extraocular movements are intact. The sclerae are anicteric. Neuro: Cranial nerves intact Neck: Patient's neck is supple. He has palpable carotid pulses bilaterally without bruits on auscultation. There is no evidence of jugular venous distention. The thyroid is not enlarged. Lungs: Clear to auscultation bilaterally. He has good air movement without use of accessory muscles. No rales wheezes or rhonchi. Cardiac: Heart demonstrates a regular rate and rhythm. Normal S1 and S2. Crescendo systolic murmur. Pulses: The patient has palpable radial pulses bilaterally that are equal in intensity Extremities: There was no evidence of hypoperfusion. There is no cyanosis or clubbing. There is no edema. Some joint deformities on the hands Skin: I did not appreciate any rashes on examination today. Results & Data ([facility]) Vital Signs (Past 12 Hours) Vital Signs Temp Pulse Pulse Resp BP Pulse Ox 01/02/20 10:57 36.8 C 76 19 109/64 95 01/02/20 09:01 71 01/02/20 07:07 36.5 C 70 18 104/57 L 96 01/02/20 03:49 36.7 C 79 20 121/75 94 Laboratory Results Abnormal Lab Results 01/01/20 01/01/20 01/01/20 20:45 20:45 20:45 WBC 9.52 RBC 4.53 L Hgb 10.3 L Hct 34.1 L MCV 75.3 L MCH 22.7 L MCHC 30.2 L RDW Std Deviation 45.1 RDW Coeff of Gill 16.5 H Plt Count 136 Immature Gran % (Auto) 0.2 Neut % (Auto) 81.5 Lymph % (Auto) 10.5 [place] % (Auto) 6.3 Eos % (Auto) 1.3 Baso % (Auto) 0.2 Immature Gran # (Auto) 0.02 Neut # (Auto) 7.76 H Lymph # (Auto) 1.00 L [place] # (Auto) 0.60 H Eos # (Auto) 0.12 Baso # (Auto) 0.02 Platelet Estimate Decreased L Hypochromasia Present Ovalocytes APTT 32.5 H PTT Ratio 1.2 Sodium 137 Potassium 3.9 Chloride 101 Carbon Dioxide 28 Anion Gap 7.0 BUN 15 Creatinine 4.06 H Est Cr Clr Drug Dosing 14.9 Est GFR ( Amer) 14.6 Est GFR (Non-Af Amer) 12.6 BUN/Creatinine Ratio 3.6 L Glucose 102 H Calcium 9.2 Magnesium 1.9 Total Bilirubin 0.6 AST 19 ALT 11 L Alkaline Phosphatase 210 H Troponin I 1.300 H* Total Protein 6.6 Albumin 2.8 L Globulin 3.8 Albumin/Globulin Ratio 0.7 L Triglycerides Cholesterol LDL Cholesterol, Calc VLDL Cholesterol, Calc HDL Cholesterol Cholesterol/HDL Ratio Lipase 29 L 01/01/20 01/02/20 01/02/20 23:13 05:33 05:33 WBC 10.14 RBC 4.01 L Hgb 9.2 L Hct 30.3 L MCV 75.6 L MCH 22.9 L MCHC 30.4 L RDW Std Deviation 45.4 RDW Coeff of Gill 16.6 H Plt Count 121 L Immature Gran % (Auto) 0.2 Neut % (Auto) 85.8 Lymph % (Auto) 7.0 [place] % (Auto) 5.9 Eos % (Auto) 0.9 Baso % (Auto) 0.2 Immature Gran # (Auto) 0.02 Neut # (Auto) 8.70 H Lymph # (Auto) 0.71 L [place] # (Auto) 0.60 H Eos # (Auto) 0.09 Baso # (Auto) 0.02 Platelet Estimate Decreased L Hypochromasia Present Ovalocytes 1+ APTT PTT Ratio Sodium 137 Potassium 3.9 Chloride 104 Carbon Dioxide 26 Anion Gap 7.0 BUN 18 Creatinine 4.41 H D Est Cr Clr Drug Dosing 13.7 Est GFR ( Amer) 13.2 Est GFR (Non-Af Amer) 11.4 BUN/Creatinine Ratio 4.1 L Glucose 92 Calcium 8.5 Magnesium Total Bilirubin AST ALT Alkaline Phosphatase Troponin I 1.300 H* 1.260 H* Total Protein Albumin Globulin Albumin/Globulin Ratio Triglycerides 66 Cholesterol 93 LDL Cholesterol, Calc 31 VLDL Cholesterol, Calc 13 HDL Cholesterol 49 Cholesterol/HDL Ratio 2 Lipase Diagnostic Findings Echocardiogram performed today revealed severely reduced LV systolic function with regional wall motion abnormalities, elevated pulmonary pressures, normally functioning bioprosthetic aortic valve ECG Additional Comments: EKG demonstrated AV sequential pacing PG Care Time/CCT Total # of Minutes Spent Total Time Spent with Patient: Total time spent is greater than 50% in coordina tion of care (as documented) at patient's floor/unit and/or counseling patient: Coding Level of Care Code 40057 Initial Inpt Care Lvl 3 Diagnoses Troponin level elevated R79.89 Ischemic cardiomyopathy I25.5 Symptomatic bradycardia R00.1 ASCVD (arteriosclerotic cardiovascular disease) I25.10
[2020-01-02] MEDS: HEPARIN SOD (PORCINE) 1000 UNIT/ML 10 ML VIAL IV SCH (18:50)
--- NOTE | 2020-01-02 19:14 | Electrocardiogram Report ---
Test Reason : Blood Pressure : / mmHG Vent. Rate : 081 BPM Atrial Rate : 081 BPM P-R Int : 104 ms QRS Dur : 204 ms QT Int : 478 ms P-R-T Axes : 037 -67 099 degrees QTc Int : 555 ms Atrial-sensed ventricular-paced rhythm with frequent , and consecutive Premature ventricular complexe s Abnormal ECG No previous ECGs available Confirmed by Erasmo Mcwilliams ([id number]) on 01/02/2020 7:13:32 PM Referred By: Prashanth Jj Confirmed By:Juan Mcwilliams
[2020-01-02] MEDS ORDERED: ATORVASTATIN 40 MG TAB PO SCH (21:00)
--- NOTE | 2020-01-03 06:55 | Hospitalist Progress Note ---
Date of Service January 02, 2020 Assessment & Plan (1) Troponin level elevated: Asymptomatic troponin elevation in the setting of ESRD on HD hx CAD sp CABG hx chronic systolic heart failure secondary ischemic cardiomyopathy (EF 30 to 35%, TTE 2019), some congestion on CXR symptomatic bradycardia status post PPM, paced rhythm history bioprosthetic AVR hypertension, BP on the lower side PCU Trend troponin TTE - ordered Cardiology consult for troponinemia and complex cardiac history as above (Patient known to Dr. Wheat.) (2) Constipation: Narcotic induced constipation, hx recurrent fecal impaction, hx pelvic fractures on RTC Percocet Proctitis -Seems opiate induced -Now resolved after enema and disimpaction in the emergency room -Proctitis on CT, follows with GI, GI contacted -Recommend outpatient colonoscopy -Bowel regimen (3) Closed compression fracture of L1 vertebra: (4) Closed fracture of symphysis pubis: -Admitted about a month ago due to pelvic fractures and compression fracture of L1 vertebra -On current CT, seems to have poss. progression of her pelvic fractures, will consult orthopedics (5) ESRD on dialysis: -Nephrology, Dr. Jj, consulted for dialysis needs chronic anemia secondary to ESRD, hemoglobin at baseline chronic thrombocytopenia ambulatory dysfunction DVT prophylaxis. SCDs RE thrombocytopenia DNR Admission and Anticipated Discharge Date Admission Date: January 02, 2020 Subjective Patient is lying in bed, in no acute distress. Status post enema in the ED and large bowel movement. Troponin elevated, however no chest pain reported. Echo pending. Per CT, possible worsening of pelvic fractures, will discuss with orthopedics. Per CT, poss. proctitis, will discuss with GI. Patient currently denies any fevers, chills, chest pain, shortness of breath, abdominal pain, nausea or vomiting. Patient states that he feels now much better after having a bowel movement. Review of Systems Review of Systems: All systems reviewed & are unremarkable except as noted in HPI & below Constitutional: no fever and no chills Respiratory: no cough and no dyspnea Cardiovascular: no chest pain and no palpitations Gastrointestinal: no abdominal pain, no nausea and no vomiting Physical Exam Physical Exam: GENERAL: Elderly obese male, lying in bed, in no acute distress HEENT: Normocephalic, atraumatic, EOMI, PERRL, pale palpebral conjunctivae NECK : Supple, short neck, no tenderness, no JVD CHEST : Decreased breath sounds, no tenderness HEART : RRR, systolic murmur ABDOMEN: Some distention, positive bowel sounds, obese, nontender to palpation EXTREMITIES : Minimal LE swelling, no LE tenderness, moves all extremities spontaneously and without difficulty SKIN: Pallor, warm NEUROLOGIC : Coherent, no facial asymmetry, no other gross focality Results & Data Results & Data ([facility]) Vital Signs (Past 12 Hours) Vital Signs Temp Pulse Pulse Resp BP BP BP 01/02/20 21:10 36.3 C L 92 H 23 117/68 01/02/20 20:20 37.0 C 95 H 105/61 01/02/20 20:17 56 L 104/62 01/02/20 19:54 70 94/47 L 01/02/20 19:40 70 98/47 L 01/02/20 19:20 69 84/39 L 01/02/20 19:02 71 102/48 L Pulse Ox 01/03/20 00:13 93 01/02/20 21:10 96 01/02/20 20:20 01/02/20 20:17 01/02/20 19:54 01/02/20 19:40 01/02/20 19:20 01/02/20 19:02 (1) Constipation Constipation type: unspecified constipation type Qualified Code(s): K59.00 - Constipation, unspecified (2) Closed compression fracture of L1 vertebra Encounter type: initial encounter Qualified Code(s): S32.010A - Wedge compression fracture of first lumbar vertebra, initial encounter for closed fracture (3) Closed fracture of symphysis pubis Encounter type: initial encounter Laterality: right Qualified Code(s): S32.591A - Other specified fracture of right pubis, initial encounter for closed fracture
--- NOTE | 2020-01-03 07:22 | Hospitalist Progress Note ---
Date of Service January 03, 2020 Assessment & Plan (1) Troponin level elevated: Asymptomatic troponin elevation in the setting of ESRD on HD hx CAD sp CABG hx chronic systolic heart failure secondary ischemic cardiomyopathy (EF 30 to 35%, TTE 2018), some congestion on CXR symptomatic bradycardia status post PPM, paced rhythm history bioprosthetic AVR hypertension, BP on the lower side PCU Trend troponin - 1.3, 1.3. 1.26 -stable TTE -mild concentric LV hypertrophy. LV systolic function is moderate to severely reduced. EF 20 to 25%. LA moderately dilated. RA mildly dilated. Moderate mitral annular calcification. Mild to moderate mitral regurg. Moderate TR. RV systolic pressure is elevated. When compared to study from October 2018, overall LV systolic function appears slightly worse. Otherwise minimal difference. Cardiology consult for troponinemia and complex cardiac history as above (Patient known to Dr. Wheat.) Per cardiology, troponin elevation is not significant in this setting, not ACS given patient had no chest pain and echo does not show significant difference from prior. Degree of LV dysfunction also qualifies patient for ICD as primary prevention against sudden cardiac . However given his advanced age and need for dialysis the potential benefit of an ICD is limited and therefore would not recommend evaluation for an ICD currently. Continue aspirin and atorvastatin. Beta-charan should be considered if blood pressure allows. Metoprolol succinate would be the drug of choice. FREDY inhibitor could also be considered if his blood pressure allows. It seems as patient is not on beta- charan or FREDY inhibitor due to hypotension. Patient's current systolic blood pressure is between 90 and 109. At this point we will not start any beta-charan or FREDY inhibitor, will leave up to patient's outpatient health care providers. (2) Constipation: Narcotic induced constipation, hx recurrent fecal impaction, hx pelvic fractures on RTC Percocet Proctitis -Seems opiate induced -Now resolved after enema and disimpaction in the emergency room -Proctitis on CT, follows with GI, GI contacted -Patient had colonoscopy in 2017, and recommended colonoscopy in 3 months, patient did not obtain recall colonoscopy -Recommend outpatient colonoscopy -Bowel regimen -MiraLAX twice a day, Colace twice a day -Low fiber diet -Limit narcotic use (3) Closed compression fracture of L1 vertebra: (4) Closed fracture of symphysis pubis: -Admitted about a month ago due to pelvic fractures and compression fracture of L1 vertebra -On current CT, seems to have poss. progression of pelvic fractures The bilateral sacral insufficiency fractures are new/progressed from 11/19/2019. The right superior pubic rami fracture demonstrates progressive comminution and fracture displacement from comparison. - consulted orthopedics -images were reviewed by orthopedics and radiology,interpretation does show healing fractures of both the left and the right superior and inferior pubic rami. There is a questionable sacral ala fracture which is worse on the left. All fractures are nondisplaced. -Orthopedic recommendations : can treat these fractures nonoperatively. Pt can be up and weightbearing as tolerated. Usually it takes about 6 to 8 weeks for the fractures to fully heal. He is likely already 4 weeks into the healing process. He is not having too much pain. Encourage pt to get up with physical therapy. (5) ESRD on dialysis: -Nephrology, Dr. 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 Reyes, consider follow-up ultrasound in 1 year Ambulatory dysfunction -plan to DC back to [facility], PT/OT DVT prophylaxis. SCDs RE thrombocytopenia DNR Admission and Anticipated Discharge Date Admission Date: January 02, 2020 Subjective Patient is sitting up in bed, in no acute distress. No acute events overnight. Patient has mild dry cough. He denies any fevers, chills, chest pain, shortness of breath, abdominal pain, nausea or vomiting. yesterday+ crackles on lung exam, follow up CXR ordered -shows improved pulmonary vasc. congestion, per RN, 2L removed via UF Seen by nephrology today, plan for next dialysis on Sunday. Review of Systems Review of Systems: All systems reviewed & are unremarkable except as noted in HPI & below Constitutional: no fever and no chills Respiratory: + cough (Occasional dry cough); no dyspnea Cardiovascular: no chest pain, no dyspnea on exertion and no palpitations Gastrointestinal: no abdominal pain, no nausea and no vomiting Physical Exam Physical Exam: GENERAL: Elderly obese male, sitting up in bed, in no acute distress HEENT: Normocephalic, atraumatic, EOMI, PERRL, pale palpebral conjunctivae NECK : Supple, short neck, no tenderness, no JVD CHEST : Breathing comfortably on room air, 94% sats on room air. No accessory muscle use. Positive crackles, no wheezing. HEART : RRR, systolic murmur ABDOMEN: Some distention, positive bowel sounds, obese, nontender to palpation EXTREMITIES : Minimal LE swelling, no LE tenderness, moves all extremities spontaneously and without difficulty SKIN: Pallor, warm NEUROLOGIC : Coherent, no facial asymmetry, no other gross focality Results & Data Results & Data ([facility]) Vital Signs (Past 12 Hours) Vital Signs Temp Pulse Pulse Resp BP BP BP 01/03/20 04:53 37.1 C 69 18 99/63 L 01/03/20 00:13 36.7 C 78 20 94/58 L 01/02/20 21:10 36.3 C L 92 H 23 117/68 01/02/20 20:20 37.0 C 95 H 105/61 01/02/20 20:17 56 L 104/62 01/02/20 19:54 70 94/47 L 01/02/20 19:40 70 98/47 L Pulse Ox 01/03/20 04:53 94 01/03/20 00:13 93 01/02/20 21:10 96 01/02/20 20:20 01/02/20 20:17 01/02/20 19:54 01/02/20 19:40 Laboratory Results 01/02/20 Range/Units 11:40 SARS-CoV-2 RNA (RT-PCR) Pending Diagnostic Findings CT abdomen pelvis January 02, 2020 IMPRESSION: 1. Moderate fecal retention. 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 Mildly prominent lymph nodes of the rectal mesocolon are likely reactive. These findings could be correlated with a follow-up colonoscopy to exclude underlying lesion. 2. Colonic diverticulosis without acute diverticulitis. 3. No bowel obstruction or pneumoperitoneum. 4. Severe atrophy of the [place] kidneys. 5. Nonobstructing bilateral renal calculi with large calculus of the left renal pelvis. 6. Acute versus subacute nondisplaced bilateral sacral insufficiency fractures, left greater than right. Additionally, there are healing subacute appearing nondisplaced and comminuted fractures of the bilateral superior and inferior pubic rami. Age-indeterminate L1 compression deformity without retropulsion. These findings were called/faxed to the emergency department at time of dictation. ADDENDUM There was a merge issue with the patient's power jacket when the original report was dictated. After completion of the report, additional studies are available for comparison. Referring physician requested comparison study to the 11/19/[address] abdomen and pelvis study from 11/12/2017. 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 The bilateral sacral insufficiency fractures are new/progressed from 11/19/2019. The right superior pubic rami fracture demonstrates progressive comminution and fracture displacement from comparison. The left superior and bilateral inferior pubic rami fractures are difficult to visualize on the study from 11/19/2019. The L1 compression deformity is unchanged from 11/19/2019. (1) Closed fracture of symphysis pubis Encounter type: initial encounter Laterality: right Qualified Code(s): S32.591A - Other specified fracture of right pubis, initial encounter for closed fracture (2) Closed compression fracture of L1 vertebra Encounter type: initial encounter Qualified Code(s): S32.010A - Wedge compression fracture of first lumbar vertebra, initial encounter for closed fracture (3) Constipation Constipation type: unspecified constipation type Qualified Code(s): K59.00 - Constipation, unspecified
[2020-01-03] MEDS: CALCIUM ACETATE 667 MG CAP/TAB PO SCH ×2 (08:05→12:54)
[2020-01-03] MEDS: ASPIRIN 81 MG ECTAB PO SCH (08:06)
[2020-01-03] MEDS: DOCUSATE SODIUM/SENNA 50/8.6MG TAB PO SCH (08:06)
[2020-01-03] MEDS: TAMSULOSIN HCL 0.4 MG CAP PO SCH (08:06)
[2020-01-03] MEDS: OXYCODONE HCL IR 5 MG TAB (IMMEDIATE RELEASE) PO SCH (08:16)
[2020-01-03 08:24] LABS: Hematocrit (blood only) 30.3 % (42-52); Hemoglobin 9.4 g/dL (14.0-18.0); Mean Corpuscular Hemoglobin 23.4 pg (25-34); Mean Corpuscular Volume 75.4 fL (80-100); RDW Coefficient of Variation 16.9 % (11.5-14.5); RDW Standard Deviation 46.1 fL (36.4-46.3); Red Blood Count 4.02 M/uL (4.7-6.1); White Blood Count 5.33 K/uL (4.8-10.8)
[2020-01-03 08:42] LABS: BUN Creatinine Ratio 3.2 (10-20); Calcium 8.3 mg/dl (8.5-10.1); Est GFR (African American) 19.9; Est GFR (Non-African American) 17.2; Magnesium 2.1 mg/dl (1.8-2.4); Platelet Count 113 K/uL (130-400); Platelet Estimate Decreased (Normal)
[2020-01-03] MEDS ORDERED: DOCUSATE SODIUM 100 MG CAP PO SCH (09:00)
[2020-01-03] MEDS ORDERED: POLYETHYLENE (MIRALAX) 17 GM PACK PO SCH (09:00)
--- NOTE | 2020-01-03 11:14 | Nephrology Progress Note ---
Date of Service January 03, 2020 Assessment & Plan (1) ESRD on dialysis: End-stage renal disease on hemodialysis Sunday, Sunday, Sunday. Admitted with stool impaction, required enema, had several bowel movement, clinically stable. Had dialysis yesterday. --blood pressure, volume status, electrolyte acceptable. Okay to be discharged if medically stable. Next dialysis Sunday at outpatient dialysis clinic. Will follow while inpatient. 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 He denies any symptoms. Electrolyte acceptable. Blood pressure, volume status acceptable. Had dialysis yesterday, uneventful. AV fistula has been working well. Review of Systems Review of Systems: All systems reviewed & are unremarkable except as noted in HPI & below Physical Exam Constitutional: well developed and well nourished; no acute distress Respiratory: normal respiratory effort, lungs clear to auscultation Cardiovascular: RRR, no murmur, no edema Neurologic: moves all extremities and awake; not confused Psychiatric: A+Ox3, euthymic affect Results & Data ([facility]) Vital Signs (Past 12 Hours) Vital Signs Temp Pulse Resp BP BP Pulse Ox 01/03/20 08:01 36.7 C 75 18 109/61 94 01/03/20 04:53 37.1 C 69 18 99/63 L 94 01/03/20 00:13 36.7 C 78 20 94/58 L 93 PG Care Time/CCT Total # of Minutes Spent Total Time Spent with Patient: Total time spent is greater than 50% in coordination of care (as documented) at patient's floor/unit and/or counseling patient: Coding Level of Care Code 80899 Subseq Hosp Care Lvl 2 Diagnoses ESRD on dialysis N18.6; Z99.2 Constipation K59.00 Constipation type: unspecified constipation type 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
--- NOTE | 2020-01-03 11:27 | XRay Report ---
XR chest 1V portable CLINICAL HISTORY: follow up COMPARISON STUDY: 01/01/2020 FINDINGS: Improved exam. Decreased prominence of pulmonary vasculature. Moderate stable cardiomegaly. Bipolar cardiac pacemaker remains in good position. IMPRESSION: Improving interstitial pulmonary edema. ACT 112: Negative or not required by law. The above report was generated using voice recognition software. It may contain grammatical, syntax or spelling errors. Electronically signed by: Romaine Fine M.D. 01/03/2020 11:26 AM
--- NOTE | 2020-01-03 11:35 | Discharge Summary ---
Date of Service January 03, 2020 Admission HPI Per Admitting Provider (NOTE : Patient has prior [facility] [place] [employer] . Registration has been requested to notify medical records to fuse the 2 accounts in a.m.) History obtained from patient, family, and records. Medical history significant for chronic systolic heart failure secondary ischemic cardiomyopathy (EF 30 to 35%, TTE 2019), CAD status post CABG, symptomatic bradycardia status post PPM, history bioprosthetic AVR, hypertension, ESRD on HD, chronic anemia (baseline hemoglobin of 10), BPH as per records, history of bullous pemphigoid as per records, chronic thrombocytopenia, ambulatory dysfunction.. [facility] [place] confinement 2018 for fecal impaction. Recent confinement last month for lumbar compression and pelvic fractures secondary to mechanical fall. Constipation during confinement. Patient discharged to [facility] for rehab. At rehab facility, patient started on Percocet BID RTC and as needed oxycodone for pelvic fracture pain. No bowel movement for about a week as per patient. Poor appetite with intermittent emesis. No response to laxatives given at [facility] rehab. Achy rectal pain without fever and chills. Patient denies chest pain, S OB. Enema and fecal disimpaction done at the ER. Medical History as above Hemodialysis Sunday Surgical History : CABG, PPM, bioprosthetic AVR, cataract surgery, tonsillectomy, hernia repair, vascular procedures Family History : Heart disease, diabetes, stroke Personal/Social history : Non-smoker, no EtOH intake, retired [employer], Sabianism Admission Exam Per Admitting Provider GENERAL: Slightly uncomfortable, obese, no respiratory distress SKIN: Pallor, warm HEENT: Bespectacled, pale palpebral conjunctivae, no ptosis, dry buccal mucosa NECK : Supple, short neck, no tenderness CHEST : Decreased breath sounds, no tenderness HEART : RRR, systolic murmur ABDOMEN: Some distention, minimal hypogastric tenderness EXTREMITIES : Minimal LE swelling, no LE tenderness, no other conspicuous deformities noted NEUROLOGIC : Coherent, no facial asymmetry, no other gross focality Principal Diagnosis Constipation Proctitis Elevated troponin History of pelvic fracture and L1 vertebral compression fracture ESRD on dialysis Discharge Exam GENERAL: Elderly obese male, sitting up in bed, in no acute distress HEENT: Normocephalic, atraumatic, EOMI, PERRL, pale palpebral conjunctivae NECK : Supple, short neck, no tenderness, no JVD CHEST : Breathing comfortably on room air, 94% sats on room air. No accessory muscle use. Positive crackles, no wheezing. HEART : RRR, systolic murmur ABDOMEN: Some distention, positive bowel sounds, obese, nontender to palpation EXTREMITIES : Minimal LE swelling, no LE tenderness, moves all extremities spontaneously and without difficulty SKIN: Pallor, warm NEUROLOGIC : Alert and oriented, answers questions appropriately, speech fluent, no facial asymmetry, moves extremities spontaneously Discharge Data Allergies Allergy/AdvReac Type Severity Reaction Status Date / Time No Known Drug Allergies Allergy Unknown . Verified 01/02/20 07:45 Consultations 01/02/20 01:03 Consult Nephrology Routine 01/02/20 08:22 Consult Gastroenterology Routine 01/02/20 09:14 Consult Orthopedic Surgery Routine 01/02/20 09:26 Consult Cardiology Routine Ordered Studies 01/01/20 20:44 CT abd pelvis wo con Urgent IMPRESSION: 1. Moderate fecal retention. 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 Mildly prominent lymph nodes of the rectal mesocolon are likely reactive. These findings could be correlated with a follow-up colonoscopy to exclude underlying lesion. 2. Colonic diverticulosis without acute diverticulitis. 3. No bowel obstruction or pneumoperitoneum. 4. Severe atrophy of the [place] kidneys. 5. Nonobstructing bilateral renal calculi with large calculus of the left renal pelvis. 6. Acute versus subacute nondisplaced bilateral sacral insufficiency fractures, left greater than right. Additionally, there are healing subacute appearing nondisplaced and comminuted fractures of the bilateral superior and inferior pubic rami. Age-indeterminate L1 compression deformity without retropulsion. These findings were called/faxed to the emergency department at time of dictation. ADDENDUM There was a merge issue with the patient's power jacket when the original report was dictated. After completion of the report, additional studies are available for comparison. Referring physician requested comparison study to the 11/19/[address] abdomen and pelvis study from 11/12/2017. 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 The bilateral sacral insufficiency fractures are new/progressed from 11/19/2019. The right superior pubic rami fracture demonstrates progressive comminution and fracture displacement from comparison. The left superior and bilateral inferior pubic rami fractures are difficult to visualize on the study from 11/19/2019. The L1 compression deformity is unchanged from 11/19/2019. Hospital Course (1) Troponin level elevated: Asymptomatic troponin elevation in the setting of ESRD on HD hx CAD sp CABG hx chronic systolic heart failure secondary ischemic cardiomyopathy (EF 30 to 35%, TTE 2018), some congestion on CXR symptomatic bradycardia status post PPM, paced rhythm history bioprosthetic AVR hypertension, BP on the lower side PCU Trend troponin - 1.3, 1.3. 1.26 -stable TTE -mild concentric LV hypertrophy. LV systolic function is moderate to severely reduced. EF 20 to 25%. LA moderately dilated. RA mildly dilated. Mo derate mitral annular calcification. Mild to moderate mitral regurg. Moderate TR. RV systolic pressure is elevated. When compared to study from October 2018, overall LV systolic function appears slightly worse. Otherwise minimal difference. Cardiology consult for troponinemia and complex cardiac history as above (Patient known to Dr. Wheat.) Per cardiology, troponin elevation is not significant in this setting, not ACS given patient had no chest pain and echo does not show significant difference from prior. Degree of LV dysfunction also qualifies patient for ICD as primary prevention against sudden cardiac . However given his advanced age and need for dialysis the potential benefit of an ICD is limited and therefore would not recommend evaluation for an ICD currently. Continue aspirin and atorvastatin. Beta-charan should be considered if blood pressure allows. Metoprolol succinate would be the drug of choice. FREDY inhibitor could also be considered if his blood pressure allows. It seems as patient is not on beta- charan or FREDY inhibitor due to hypotension. Patient's current systolic blood pressure is between 90 and 109. At this point we will not start any beta-charan or FREDY inhibitor, will leave up to patient's outpatient health care providers. (2) Constipation: Narcotic induced constipation, hx recurrent fecal impaction, hx pelvic fractures on RTC Percocet Proctitis -Seems opiate induced -Now resolved after enema and disimpaction in the emergency room -Proctitis on CT, follows with GI, GI contacted -Patient had colonoscopy in 2017, and recommended colonoscopy in 3 months, patient did not obtain recall colonoscopy -Recommend outpatient colonoscopy -Bowel regimen -MiraLAX twice a day, Colace twice a day -Low fiber diet -Limit narcotic use (3) Closed compression fracture of L1 vertebra: (4) Closed fracture of symphysis pubis: -Admitted about a month ago due to pelvic fractures and compression fracture of L1 vertebra -On current CT, seems to have poss. progression of pelvic fractures The bilateral sacral insufficiency fractures are new/progressed from 11/19/2019. The right superior pubic rami fracture demonstrates progressive comminution and fracture displacement from comparison. - consulted orthopedics -images were reviewed by orthopedics and radiology,interpretation does show healing fractures of both the left and the right superior and inferior pubic rami. There is a questionable sacral ala fracture which is worse on the left. All fractures are nondisplaced. -Orthopedic recommendations : can treat these fractures nonoperatively. Pt can be up and weightbearing as tolerated. Usually it takes about 6 to 8 weeks for the fractures to fully heal. He is likely already 4 weeks into the healing process. He is not having too much pain. Encourage pt to get up with physical therapy. (5) ESRD on dialysis: -Nephrology, Dr. 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 Reyes, consider follow-up ultrasound in 1 year Ambulatory dysfunction -plan to DC back to [facility], PT/OT Total Time Total Time Spent Total Time Spent (In Minutes): 35 Total Time Includes: Examination of the Patient, Discharge Planning, Medication Reconciliation and Communication With Other Providers Discharge Plan Discharge Items Patient Disposition: Transfer Intermediate Fac Reason For Visit: TROP ELEV Discharge Diagnosis: Constipation Proctitis Elevated troponin History of pelvic fracture and L1 vertebral compression fracture ESRD on dialysis Activity: Per Instructions section Non-emergency contact: Primary Care Provider Call non-emergency contact if: you have any medication questions and your symptoms worsen Follow-up/Referrals: Suly House DO [Primary Care Provider] - Diet: Dialysis Renal and Low Fiber Addtl Attending Provider Instructions: It is important that you take stool softeners on a regular basis to prevent severe constipation. Especially in the setting of opioid pain medications. Recommend to take 1000 mg of Tylenol 3 times a day, max dose 3000 mg a day, before taking any other pain medications. You should have a bowel movement every day, and your stool should be soft. Take MiraLAX twice a day, Colace twice a day. Also recommend low fiber diet and limited narcotic use. It was recommended by gastroenterology that you have outpatient colonoscopy. Pending Studies at Discharge: No Stand-Alone Forms: My [facility] Skilled Items Patient informed of condition?: Yes DNR: Yes Discharge Level of Care: Skilled Communicable Disease: No Discharge Prognosis: Stable Lines: None Urinary Catheter: No Medications and DC Order Prescriptions: New polyethylene glycol 3350 [Miralax] 17 gram Powder In Packet 17 g PO BID Qty: 30 RF: 0 docusate sodium 100 mg Capsule 100 mg PO BID Qty: 30 RF: 0 sennosides-docusate sodium [Senokot-S] 8.6-50 mg Tablet 1 tab PO BID Qty: 30 RF: 0 Continued oxycodone-acetaminophen 5-325 mg tablet 1 tab PO BID Qty: 60 RF: 0 calcium acetate(phosphat bind) 667 mg capsule 1,334 mg PO TIDM RF: 0 tamsulosin 0.4 mg capsule 0.4 mg PO HS Qty: 90 RF: 0 aspirin [Aspirin Low Dose] 81 mg Tablet,Delayed Release (Dr/Ec) 81 mg PO DAILY RF: 0 nitroglycerin [Nitrostat] 0.4 mg Tablet, Sublingual 0.4 mg sublingual UD PRN (Reason: Chest Pain) RF: 0 atorvastatin 40 mg tablet 40 mg PO DAILY RF: 0 atorvastatin 40 mg Tablet 40 mg PO HS RF: 0 aspirin [Aspir-81] 81 mg Tablet,Delayed Release (Dr/Ec) 81 mg PO DAILY RF: 0 oxycodone-acetaminophen [Percocet] 5-325 mg Tablet 1 tab PO BID PRN (Reason: Pain) RF: 0 magnesium hydroxide [Milk of Magnesia] 400 mg/5 mL Suspension 30 ml PO DIRECTED PRN (Reason: Constipation) RF: 0 tamsulosin [Flomax] 0.4 mg Capsule 0.4 mg PO DAILY RF: 0 nitroglycerin [Nitrostat] 0.4 mg Tablet, Sublingual 0.4 mg sublingual UD PRN (Reason: Chest Pain) RF: 0 oxycodone 5 mg Tablet 5 mg PO Q8H PRN (Reason: Pain) RF: 0 acetaminophen [Tylenol] 325 mg Capsule 650 mg PO Q6 PRN (Reason: PAIN/FEVER) RF: 0 calcium acetate 667 mg Tablet 1,334 mg PO TIDM RF: 0 Prune Juice 1 dose PO UD PRN (Reason: Constipation) RF: 0 Discharge Orders: Discharge Order (Routine); Ordered 01/03/20 Ordered By: Chele Euceda Admission Data Admit Date/Time: 01/02/20 11:41 Attending Provider: Chele Euceda Admit Provider: Fei Sarabia Primary Care Provider: Suly House Other Providers: Prashanth Jj ; Denita Parisi ; Domingo Couch ; Jesse Hernandez ; Vito Horn ; Mariam Read ; Ines Hurtado ; Owen Molina ; Romaine Bacon ; Yovany Matos ; Yovany Pérez ; Patti Porras ; Brooks Saldivar ; David Pandey ; Lalo Parra ; Bjorn Wheat ; Javier Arriaza ; Charly Kunz ; Richy Maldonado Jr ; Francesco Henriquez ; Gila Newman ; Toshia Manriquez ; Neno Park ; Neno Mcwilliams ; Damien Santamaria ; German Cheatham ; Ines Baird ; Alessia Brothers ; Brooks Hamm ; Yinka Snowden ; [facility]
== END 2020-01-03 15:25 | DRG 393 ==
LOC: ED 19:52 → 2S 19:52 → MERGE 23:13 → 2S 01-02 00:01

== ENCOUNTER 2020-01-10 10:15 | Inpatient (IN) ==
--- NOTE | 2020-01-10 10:33 | Emergency Department Note ---
Impression & Plan CHF (congestive heart failure), ESRD on dialysis, SOB (shortness of breath) ED Provider Note NAME: NICK NELSON AGE: 84 SEX: M : 1935 ARRIVES VIA: Ambulance INFORMANT: Patient, prehospital personnel. ED PROVIDER(S): Bjorn Mackenzie DO CHIEF COMPLAINT: Shortness of breath HPI: The patient is an 84-year-old male who has a history of end-stage renal disease who presented to the emergency department for an evaluation of diff iculty breathing. The patient lives in a [place] [facility]. He had dialysis yesterday and states he had a full round of dialysis. He was recently admitted to our facility for a bowel obstruction. The patient notices no nausea or vomiting. He does not notice any lower extremity pain or swelling. He has had no worsening abdominal pain at this time. He does complain of shortness of breath with exertion and cough. He has no fever. His lung sounds were noted to be clear prior to arrival. The patient's oxygen saturation was noted to be in the low 90s prior to arrival. The patient still makes urine and states that he has been noticing decreased urination but did receive dialysis yesterday. ROS: See above HPI for pertinent positives & negatives. A total of 10 systems reviewed and were otherwise negative. PAST MEDICAL HISTORY: See Below PAST SURGICAL HISTORY: See Below FAMILY HISTORY: See Below SOCIAL HISTORY: See Below HOME MEDICATIONS: See Below ALLERGIES: See Below VITALS: See Below PHYSICAL EXAMINATION: GENERAL: Patient is awake alert in no acute distress patient is resting comfortably and showing no signs of anxiety EYES: The conjunctivae are clear. The pupils are round and reactive. EARS, NOSE, MOUTH AND THROAT: The nose is without any evidence of any deformity. Mucous membranes are moist. Tongue is midline. NECK: The neck is nontender and supple. RESPIRATORY: Diminished breath sounds are noted throughout. There are rales at both bases. There is no tachypnea or conversational dyspnea. CARDIOVASCULAR: Irregular rhythm was noted to auscultation. Systolic murmur was suggested. GASTROINTESTINAL: The abdomen is soft. Abdomen is nontender. MUSCULOSKELETAL/EXTREMITIES: There is no evidence of gross deformity full range of motion is noted in the hips and shoulders. SKIN: Pedal edema was noted bilaterally. There is a dialysis fistula in the left upper extremity. There is a palpable thrill and a bruit noted to auscultation. NEUROLOGIC: Patient is awake alert and oriented x3. MEDICAL DECISION MAKING: The patient is an 84-year-old male who presented to the emergency department by ambulance from his [place] [facility] [place] for an evaluation of difficulty breathing. The patient's history and physical exam appear to be consistent with volume overload. The patient was found to have lower extremity edema as well as rales on physical exam. Chest x-ray revealed signs of pulmonary edema. The patient has a history of end-stage renal disease but had a full run of dialysis yesterday. He was treated with Lasix in the emergency department as well as supplemental oxygen. He does not make urine so I am unsure how well he will respond to this medication but I [facility] They have agreed to evaluate the patient in the emergency department for further management and disposition. Additional history was obtained from the patient's son. Triage Nursing notes reviewed. Prior medical records reviewed Vital Signs: reviewed and remarkable for elevated blood pressure. Differential diagnosis: Reactive airway disease, pneumonia, pneumothorax, COPD, CHF, infections, cardiac ischemia, pulmonary embolism, musculoskeletal, gastrointestinal, as well as other pathologies. ER treatment provided: See below Diagnostics interpreted by me: ECG: EKG was obtained in the emergency department. My interpretation is atrial sensed ventricular paced rhythm at 86 bpm. PVCs were noted. There was a left bundle branch block pattern noted. This was compared to a tracing from November 19, 2019. No significant changes were noted. Cardiac Monitoring: An order was placed for continuous cardiac monitoring. The monitor shows a rate of 88 with paced rhythm. Laboratory studies: As stated above and show below. Imaging studies: See below Consultation(s): 1310: I discussed this case with Antwan Honeycutt who is [facility] They will evaluate the patient in the emergency department for further management and disposition. ED COURSE: Procedures: none PDMP:reviewed and no issues Critical Care: None Past Med/Surg History Medical History Anemia 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) ASCVD (arteriosclerotic cardiovascular disease) (Chronic) BPH (benign prostatic hyperplasia) (Chronic) Bullous pemphigoid (Chronic) Dialysis patient Dyslipidemia (Chronic) ESRD on dialysis (Chronic) HTN (hypertension) (Chronic) Pacemaker (Chronic) Pacemaker Renal calculi (Chronic) Surgical History Aortic valve replaced (Chronic) H/O inguinal hernia repair (Chronic) History of cataract surgery (Chronic) History of tonsillectomy (Chronic) Hx of CABG (Chronic) Family History Other Coronary heart disease Hypertension Stroke Social History Preferred Language: Serbian Communication Ability: Effective [place] Technician Required: No Beliefs That Will Affect Care: None and Episcopalian Ep[employer]opalian Beliefs: Jehovah Witness, no blood transfusions marital status: Current Living Situation: Spouse current occupational status: retired Feels Safe at Home: Yes Smoking Status: Never smoker Second Hand Exposure: No ; Hx Alcohol Use: No Hx Substance Use: No Allergies Allergies Allergy/AdvReac Type Severity Reaction Status Date / Time No Known Drug Allergies Allergy Unknown . Verified 01/10/20 11:01 Home Meds Home Medications Medication Instructions Recorded Confirmed atorvastatin 40 mg PO DAILY@202911/19/19 01/10/20 nitroglycerin [Nitrostat] 0.4 mg SUBLINGUAL UD PRN 11/19/19 01/10/20 aspirin [Aspir-81] 81 mg PO DAILY@82901/01/20 01/10/20 calcium acetate 1,334 mg PO TIDM 01/01/20 01/10/20 oxycodone 5 mg PO Q8H PRN 01/01/20 01/10/20 tamsulosin [Flomax] 0.4 mg PO DAILY@202901/01/20 01/10/20 mirtazapine 7.5 mg PO DAILY@202901/10/20 01/10/20 Previous Rx's Medication Instructions Recorded oxycodone-acetaminophen 5 mg-325 1 tab PO BID #60 tab 11/05/19 mg tablet docusate sodium 100 mg PO BID #30 cap 01/03/20 polyethylene glycol 3350 [Miralax] 17 g PO BID #30 ea 01/03/20 sennosides-docusate sodium 1 tab PO BID #30 tab 01/03/20 [Senokot-S] Results & Data (ED) Vital Signs Vital Signs - 24 hr 01/10/20 10:22 01/10/20 10:27 01/10/20 10:30 Temperature 37.0 C Temperature Source Oral Pulse Rate 81 81 Pulse Rate from SpO2 Sensor 88 Respiratory Rate 24 22 Respiratory Effort / Characteristics Non-Labored Spontaneous Non-Labored Respiratory Depth Normal Normal Blood Pressure 144/89 H 144/84 H Blood Pressure Mean 100 104 Pulse Oximetry 99 97 Oxygen Delivery Method Room Air Room Air Room Air Oxygen Flow Rate Sepsis Recent Fever Within 48 Hours No Sepsis New/Unexplained Change in Mental Status No Sepsis Action Taken by Nursing No Action Required 01/10/20 10:31 01/10/20 10:32 01/10/20 11:01 Temperature Temperature Source Pulse Rate 84 81 Pulse Rate from SpO2 Sensor 84 83 Respiratory Rate 22 26 H Respiratory Effort / Characteristics Respiratory Depth Blood Pressure 124/62 159/87 H Blood Pressure Mean 82 92 Pulse Oximetry 97 96 98 Oxygen Delivery Method Room Air Room Air Room Air Oxygen Flow Rate 97 Sepsis Recent Fever Within 48 Hours Sepsis New/Unexplained Change in Mental Status Sepsis Action Taken by Nursing 01/10/20 11:30 01/10/20 12:00 01/10/20 12:30 Temperature Temperature Source Pulse Rate 81 80 86 Pulse Rate from SpO2 Sensor 83 80 87 Respiratory Rate 24 23 22 Respiratory Effort / Characteristics Respiratory Depth Blood Pressure 166/95 H 171/93 H 180/97 H Blood Pressure Mean 121 128 118 Pulse Oximetry 98 96 99 Oxygen Delivery Method Room Air Room Air Room Air Oxygen Flow Rate Sepsis Recent Fever Within 48 Hours Sepsis New/Unexplained Change in Mental Status Sepsis Action Taken by Nursing 01/10/20 13:00 Temperature Temperature Source Pulse Rate 86 Pulse Rate from SpO2 Sensor 88 Respiratory Rate 27 H Respiratory Effort / Characteristics Respiratory Depth Blood Pressure 186/94 H Blood Pressure Mean 116 Pulse Oximetry 97 Oxygen Delivery Method Room Air Oxygen Flow Rate Sepsis Recent Fever Within 48 Hours Sepsis New/Unexplained Change in Mental Status Sepsis Action Taken by [place] Medications Current Medication List: was personally reviewed by me Laboratory Data Attestation: I reviewed the patient's lab results. Result diagrams: 01/10/20 10:43 01/10/20 10:43 Lab Results 01/10/20 01/10/20 01/10/20 Range/Units 10:43 10:43 10:43 WBC 5.23 (4.8-10.8) K/uL RBC 4.47 L (4.7-6.1) M/uL Hgb 10.5 L (14.0-18.0) g/dL Hct 33.4 L (42-52) % MCV 74.7 L (80-100) fL MCH 23.5 L (25-34) pg MCHC 31.4 L (32-36) g/dL RDW Std Deviation 46.1 (36.4-46.3) fL RDW Coeff of Gill 17.1 H (11.5-14.5) % Plt Count 179 (130-400) K/uL Immature Gran % (Auto) 0.2 % Neut % (Auto) 54.3 % Lymph % (Auto) 26.4 % [place] % (Auto) 8.8 % Eos % (Auto) 10.1 % Baso % (Auto) 0.2 % Neut # (Auto) 2.84 (1.4-6.5) K/uL Lymph # (Auto) 1.38 (1.2-3.4) K/uL [place] # (Auto) 0.46 (0.11-0.59) K/uL Eos # (Auto) 0.53 H (0-0.5) K/uL Baso # (Auto) 0.01 (0-0.2) K/uL Immature Gran # (Auto) 0.01 (0.00-0.02) K/uL PT 12.9 H (9.0-12.0) Seconds INR 1.2 H (0.9-1.1) APTT 25.1 (21.0-31.0) Seconds PTT Ratio 0.9 VBG pH (7.36-7.41) VBG pCO2 (38-50) mmHg VBG pO2 mmHg VBG HCO3 mmol/L VBG O2 Saturation % VBG Base Excess mEq/L Barometric Pressure mm/Hg Sodium 139 (136-145) mmol/L Potassium 4.4 (3.5-5.1) mmol/L Chloride 105 (98-107) mmol/L Carbon Dioxide 30 (21-32) mmol/L Anion Gap 4.0 (3-11) BUN 15 (7-18) mg/dl Creatinine 3.19 H (0.6-1.4) mg/dl Est Cr Clr Drug Dosing 19.6 ml/min Est GFR ( Amer) 19.5 Est GFR (Non-Af Amer) 16.8 BUN/Creatinine Ratio 4.6 L (10-20) Glucose 98 (70-99) mg/dl Calcium 8.8 (8.5-10.1) mg/dl Magnesium 2.2 (1.8-2.4) mg/dl Total Bilirubin 0.4 (0.2-1) mg/dl AST 20 (15-37) U/L ALT 14 (12-78) U/L Alkaline Phosphatase 183 H (45-117) U/L Troponin I 0.624 H* (0-0.045) ng/ml NT-Pro-B Natriuret Pep > 66023 H (0-1800) pg/ml Total Protein 6.7 (6.4-8.2) gm/dl Albumin 2.8 L (3.4-5.0) gm/dl Globulin 3.9 (2.5-4.0) gm/dl Albumin/Globulin Ratio 0.7 L (0.9-2) // Range/Units 10:43 WBC (4.8-10.8) K/uL RBC (4.7-6.1) M/uL Hgb (14.0-18.0) g/dL Hct (42-52) % MCV (80-100) fL MCH (25-34) pg MCHC (32-36) g/dL RDW Std Deviation (36.4-46.3) fL RDW Coeff of Gill (11.5-14.5) % Plt Count (130-400) K/uL Immature Gran % (Auto) % Neut % (Auto) % Lymph % (Auto) % [place] % (Auto) % Eos % (Auto) % Baso % (Auto) % Neut # (Auto) (1.4-6.5) K/uL Lymph # (Auto) (1.2-3.4) K/uL [place] # (Auto) (0.11-0.59) K/uL Eos # (Auto) (0-0.5) K/uL Baso # (Auto) (0-0.2) K/uL Immature Gran # (Auto) (0.00-0.02) K/uL PT (9.0-12.0) Seconds INR (0.9-1.1) APTT (21.0-31.0) Seconds PTT Ratio VBG pH 7.41 (7.36-7.41) VBG pCO2 50 (38-50) mmHg VBG pO2 29 mmHg VBG HCO3 31 mmol/L VBG O2 Saturation < 60.0 % VBG Base Excess 5.7 mEq/L Barometric Pressure 726.7 mm/Hg Sodium (136-145) mmol/L Potassium (3.5-5.1) mmol/L Chloride (98-107) mmol/L Carbon Dioxide (21-32) mmol/L Anion Gap (3-11) BUN (7-18) mg/dl Creatinine (0.6-1.4) mg/dl Est Cr Clr Drug Dosing ml/min Est GFR ( Amer) Est GFR (Non-Af Amer) BUN/Creatinine Ratio (10-20) Glucose (70-99) mg/dl Calcium (8.5-10.1) mg/dl Magnesium (1.8-2.4) mg/dl Total Bilirubin (0.2-1) mg/dl AST (15-37) U/L ALT (12-78) U/L Alkaline Phosphatase (45-117) U/L Troponin I (0-0.045) ng/ml NT-Pro-B Natriuret Pep (0-1800) pg/ml Total Protein (6.4-8.2) gm/dl Albumin (3.4-5.0) gm/dl Globulin (2.5-4.0) gm/dl Albumin/Globulin Ratio (0.9-2) Administered Medications Discontinued Medications Furosemide (Lasix) 40 mg IV NOW STA Stop: 01/10/20 12:32 Last Admin: 01/10/20 13:26 Dose: 40 mg Documented by: [id number] Imaging Data Radiologist's Impression: XR chest 1V portable CLINICAL HISTORY: Dyspnea dyspnea COMPARISON STUDY: 01/03/2020 FINDINGS: Moderate increase in cardiac size. Increased prominence of pulmonary vasculature. Bipolar cardiac pacer in good position. IMPRESSION: Congestive heart failure ACT 112: Negative or not required by law. The above report was generated using voice recognition software. It may contain grammatical, syntax or spelling errors. Electronically signed by: Romaine Fine M.D. 01/10/2020 11:41 AM Dictated: 01/10/20 1141 Transcribed: 01/10/20 1141 Blood Pressure Blood Pressure Findings: Elevated blood pressure Blood Pressure Disposition: further management by hospitalist Discharge Plan Visit Data Chief Complaint: Shortness of Breath/Dyspnea ED Provider: Bjorn Mackenzie Discharge Problem: CHF (congestive heart failure), ESRD on dialysis, SOB (shortness of breath) Patient Disposition: Being Evaluated by Hospitalist Condition: Good Forms Stand Alone Forms: My [facility] Embedly Prescriptions Prescriptions: No Action oxycodone-acetaminophen 5-325 mg tablet 1 tab PO BID Qty: 60 RF: 0 nitroglycerin [Nitrostat] 0.4 mg Tablet, Sublingual 0.4 mg sublingual UD PRN (Reason: Chest Pain) RF: 0 atorvastatin 40 mg tablet 40 mg PO DAILY@2029 RF: 0 aspirin [Aspir-81] 81 mg Tablet,Delayed Release (Dr/Ec) 81 mg PO DAILY@829 RF: 0 tamsulosin [Flomax] 0.4 mg Capsule 0.4 mg PO DAILY@2029 RF: 0 oxycodone 5 mg Tablet 5 mg PO Q8H PRN (Reason: Pain) RF: 0 calcium acetate 667 mg Tablet 1,334 mg PO TIDM RF: 0 polyethylene glycol 3350 [Miralax] 17 gram Powder In Packet 17 g PO BID Qty: 30 RF: 0 docusate sodium 100 mg Capsule 100 mg PO BID Qty: 30 RF: 0 sennosides-docusate sodium [Senokot-S] 8.6-50 mg Tablet 1 tab PO BID Qty: 30 RF: 0 mirtazapine 7.5 mg Tablet 7.5 mg PO DAILY@2029 RF: 0 Referrals Referrals: Jose Francisco Cash [Primary Care Provider] -
[2020-01-10 10:53] LABS: Base Excess VBG 5.7 mEq/L; HCO3 VBG 31 mmol/L; PCO2 VBG 50 mmHg (38-50); PO2 VBG 29 mmHg; pH VBG 7.41 (7.36-7.41)
[2020-01-10 10:58] LABS: Basophils # (auto) 0.01 K/uL (0-0.2); Basophils % (auto) 0.2 %; Eosinophils # (auto) 0.53 K/uL (0-0.5); Eosinophils % (auto) 10.1 %; Hematocrit (blood only) 33.4 % (42-52); Hemoglobin 10.5 g/dL (14.0-18.0); Immature Granulocytes # (auto) 0.01 K/uL (0.00-0.02); Immature Granulocytes % (auto) 0.2 %; Lymphocytes # (auto) 1.38 K/uL (1.2-3.4); Lymphocytes % (auto) 26.4 %; Mean Corpuscular Hemoglobin 23.5 pg (25-34); Mean Corpuscular Hgb Conc 31.4 g/dL (32-36); Mean Corpuscular Volume 74.7 fL (80-100); Monocytes # (auto) 0.46 K/uL (0.11-0.59); Monocytes % (auto) 8.8 %; Neutrophils # (auto) 2.84 K/uL (1.4-6.5); Neutrophils % (auto) 54.3 %; Platelet Count 179 K/uL (130-400); RDW Coefficient of Variation 17.1 % (11.5-14.5); RDW Standard Deviation 46.1 fL (36.4-46.3); Red Blood Count 4.47 M/uL (4.7-6.1); White Blood Count 5.23 K/uL (4.8-10.8)
[2020-01-10 11:02] LABS: Oxygen Saturation VBG < 60.0 %
--- NOTE | 2020-01-10 11:02 | Electrocardiogram Report ---
Test Reason : Blood Pressure : / mmHG Vent. Rate : 086 BPM Atrial Rate : 083 BPM P-R Int : 198 ms QRS Dur : 202 ms QT Int : 454 ms P-R-T Axes : 078 -73 103 degrees QTc Int : 543 ms Atrial-sensed ventricular-paced rhythm with frequent , and consecutive Premature ventricular complexe s Abnormal ECG When compared with ECG of 19-NOV-2019 14:56, Premature ventricular complexes are now Present Vent. rate has decreased BY 30 BPM Confirmed by Erasmo Mcwilliams ([id number]) on 01/10/2020 11:02:37 AM Referred By: [facility] Confirmed By:Juan Mcwilliams
[2020-01-10 11:12] LABS: INR 1.2 (0.9-1.1); Partial Thromboplastin Ratio 0.9; Partial Thromboplastin Time 25.1 Seconds (21.0-31.0); Prothrombin Time 12.9 Seconds (9.0-12.0)
[2020-01-10 11:19] LABS: Alanine Aminotransferase 14 U/L (12-78); Albumin Level 2.8 gm/dl (3.4-5.0); Aspartate Aminotransferase 20 U/L (15-37); BUN Creatinine Ratio 4.6 (10-20); Blood Urea Nitrogen 15 mg/dl (7-18); Calcium 8.8 mg/dl (8.5-10.1); Carbon Dioxide 30 mmol/L (21-32); Chloride 105 mmol/L (98-107); Creatinine Clr Calc Pharmacy 19.6 ml/min; Est GFR (African American) 19.5; Est GFR (Non-African American) 16.8; Glucose 98 mg/dl (70-99); Magnesium 2.2 mg/dl (1.8-2.4); Potassium 4.4 mmol/L (3.5-5.1); Sodium 139 mmol/L (136-145)
[2020-01-10 11:33] LABS: Albumin Globulin Ratio 0.7 (0.9-2); Alkaline Phosphatase 183 U/L (45-117); Bilirubin,Total 0.4 mg/dl (0.2-1); Globulin 3.9 gm/dl (2.5-4.0); NT Pro B Type Natriuretic Pept > 35000 pg/ml (0-1800); Total Protein 6.7 gm/dl (6.4-8.2); Troponin I 0.624 ng/ml (0-0.045)
--- NOTE | 2020-01-10 11:42 | XRay Report ---
XR chest 1V portable CLINICAL HISTORY: Dyspnea dyspnea COMPARISON STUDY: 01/03/2020 FINDINGS: Moderate increase in cardiac size. Increased prominence of pulmonary vasculature. Bipolar cardiac pacer in good position. IMPRESSION: Congestive heart failure ACT 112: Negative or not required by law. The above report was generated using voice recognition software. It may contain grammatical, syntax or spelling errors. Electronically signed by: Romaine Fine M.D. 01/10/2020 11:41 AM
[2020-01-10] MEDS ORDERED: FUROSEMIDE 40 MG/4 ML VIAL IV STA (12:31)
[2020-01-10] MEDS ORDERED: NITROGLYCERIN SL 0.4 MG/TAB TAB SL PRN ×2 (13:57→16:44)
[2020-01-10] MEDS ORDERED: ALUMINUM/MAGNESIUM SUSP 30 ML UDC PO PRN (13:57)
[2020-01-10] MEDS ORDERED: POLYETHYLENE (MIRALAX) 17 GM PACK PO PRN (13:57)
[2020-01-10] MEDS ORDERED: MAGNESIUM HYDROXIDE SUSP 30 ML UDC PO PRN (13:57)
[2020-01-10] MEDS ORDERED: ACETAMINOPHEN 325 MG TAB PO PRN (13:57)
--- NOTE | 2020-01-10 14:17 | History & Physical Report ---
Date of Service January 10, 2020 Assessment & Plan (1) Acute decompensated heart failure: (2) Ischemic cardiomyopathy: This is an 84yo M with a PMH of chronic systolic heart failure secondary ischemic cardiomyopathy (EF 30 to 35%, TTE 2018), CAD s/p CABG, symptomatic bradycardia status post PPM, history bioprosthetic AVR, hypertension, ESRD on HD, chronic anemia (baseline hemoglobin of 10), BPH as per records, history of bullous pemphigoid as per records, chronic thrombocytopenia, ambulatory dysfunction and other medical problems as below who presents from [facility] with worsening shortness of breath and was found to have acute decompensated heart failure. -Presenting from [facility] with worsening dyspnea on exertion over the past few days -History of chronic systolic heart failure 2/2 ischemic cardiomyopathy (01/03/20 TTE with severly reduced EF of 20-25%) -BNP >35,000, troponin elevated at 0.624 (appears chronic), CXR with evidence of congestive heart failure -Dyspnea on exertion in setting of acute decompensated heart failure -No longer making urine in setting of ESRD. Will touch base with [facility] regarding plans for dialysis tomorrow vs Sunday -O2 saturation of 98% on room air -Restrict fluid intake, monitor daily weights (3) Troponin level elevated: Troponin elevated at 0.624 in setting of ESRD on dialysis. Most recently dialyzed yesterday -Chronic troponin elevation per review of records -No chest pain, no EKG changes. Cardiology was consulted last time for elevated troponin. Daggett to be asymptomatic elevation in setting of ES RD on HD (4) ESRD on dialysis: Follows with [facility] with HD MWF. Routine consult placed (5) Ambulatory dysfunction: Recent closed compression fracture of L1 vertebra and closed fracture of symphysis pubis in November requiring admission -Non-operative per ortho. WB as tolerated. Has been participating with PT/OT at SNF. Continue in-patient PT/OT -Oxycodone for pain with bowel regimen (recently admitted with narcotic induced constipation- will monitor bowel function closely) (6) Symptomatic bradycardia: S/p pacemaker placement. EKG with paced rhythm DVT Ppx: SQ heparin Code status: DNR Dispo: Admitted to [facility]. Discharge planning for return to [facility] Patient seen in collaboration with Dr. Ayers. Please see addendum. History of Present Illness Chief Complaint: SOB Primary Care Provider: [facility] This is an 84yo M with a PMH of chronic systolic heart failure secondary ischemic cardiomyopathy (EF 30 to 35%, TTE 2019), CAD s/p CABG, symptomatic bradycardia status post PPM, history bioprosthetic AVR, hypertension, ESRD on HD, chronic anemia (baseline hemoglobin of 10), BPH as per records, history of bullous pemphigoid as per records, chronic thrombocytopenia, ambulatory dysfunction and other medical problems as below who presents from [facility] with worsening shortness of breath. This is patient's third admission in the past 2 months, starting with closed fracture of symphysis pubis 2/2 fall back in November and most recent admission last week for narcotic induced constipation and asymptomatic troponin elevation in the setting of ESRD. Patient returns today having been sent from [facility] due to worsening shortness of breath at rest. Patient denies any chest pain, palpitations or weight gain but does endorse increased shortness of breath, especially with any type of movement or speech. Did have dialysis yesterday. Does not make urine. Denies any fever, chills, infectious contacts. No nausea, vomiting, abdominal pain or constipation. Is having normal bowel movements. Per son at bedside, patient has been more stressed than normal due to multiple hospitalizations, placement in facility and not being able to have family support due to COVID. Has not been at home in 7 weeks, where he lived prior to November admission for pelvic fracture. Allergies Allergy/AdvReac Type Severity Reaction Status Date / Time No Known Drug Allergies Allergy Unknown . Verified 01/10/20 11:01 Home Medications Home Medications Medication Instructions Recorded Confirmed Type oxycodone-acetaminophen 5 mg-325 1 tab PO BID #60 tab 11/05/19 01/10/20 Rx mg tablet atorvastatin 40 mg PO DAILY@202911/19/19 01/10/20 History nitroglycerin [Nitrostat] 0.4 mg SUBLINGUAL UD PRN 11/19/19 01/10/20 History aspirin [Aspir-81] 81 mg PO DAILY@82901/01/20 01/10/20 History calcium acetate 1,334 mg PO TIDM 01/01/20 01/10/20 History oxycodone 5 mg PO Q8H PRN 01/01/20 01/10/20 History tamsulosin [Flomax] 0.4 mg PO DAILY@202901/01/20 01/10/20 History docusate sodium 100 mg PO BID #30 cap 01/03/20 01/10/20 Rx polyethylene glycol 3350 [Miralax] 17 g PO BID #30 ea 01/03/20 01/10/20 Rx sennosides-docusate sodium 1 tab PO BID #30 tab 01/03/20 01/10/20 Rx [Senokot-S] mirtazapine 7.5 mg PO DAILY@202901/10/20 01/10/20 History Past Med/Surg History Medical History Anemia 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) ASCVD (arteriosclerotic cardiovascular disease) (Chronic) BPH (benign prostatic hyperplasia) (Chronic) Bullous pemphigoid (Chronic) Dialysis patient Dyslipidemia (Chronic) ESRD on dialysis (Chronic) HTN (hypertension) (Chronic) Pacemaker (Chronic) Pacemaker Renal calculi (Chronic) Surgical History Aortic valve replaced (Chronic) H/O inguinal hernia repair (Chronic) History of cataract surgery (Chronic) History of tonsillectomy (Chronic) Hx of CABG (Chronic) Family History Other Coronary heart disease Hypertension Stroke Social History Preferred Language: Albanian Communication Ability: Effective 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 Physical Exam Physical Exam: General Appearance: WD/WN, vitals as above, appears chronically ill, sitting up in bed, conversational dyspnea Head: normocephalic, atraumatic Eyes: normal inspection, PERRL, conjunctivae normal, anicteric sclerae ENT: external ear and nose normal, oropharynx normal Neck: trachea midline, no thyromegaly normal visual inspection Respiratory: normal respiratory effort, bibasilar rales, no wheeze or rhonchi. Normal insp/exp effort, no accessory muscle use Cardiovascular: regular rate, rhythm, systolic murmur, normal peripheral pulses, trace pedal edema. Vessels: no JVD or carotid bruit Chest: normal inspection of chest Abdomen/GI: normal bowel sounds, soft, nontender, no hepatosplenomegaly Extremities/Musculoskeletal: no cyanosis or clubbing, extremities motor strength 5/5. + LUE dialysis fistula with palpable thrill Neurologic: PERRL, EOMI, accommodation nl, no face palsy, no dysarthria, CN's II-XI intact bilaterally and moves all extremities Psychiatric: A+Ox3, euthymic affect Skin: no rashes, normal color, warm/dry Results & Data Results & Data ([facility]) Vital Signs (Past 12 Hours) Vital Signs Temp Pulse Resp BP Pulse Ox 01/10/20 13:00 86 27 H 186/94 H 97 01/10/20 12:30 86 22 180/97 H 99 01/10/20 12:00 80 23 171/93 H 96 01/10/20 11:30 81 24 166/95 H 98 01/10/20 11:01 81 26 H 159/87 H 98 01/10/20 10:32 96 01/10/20 10:31 84 22 124/62 97 01/10/20 10:30 37.0 C 81 22 144/84 H 97 01/10/20 10:22 81 24 144/89 H 99 Laboratory Results Short CBC 01/10/20 Range/Units 10:43 WBC 5.23 (4.8-10.8) K/uL Hgb 10.5 L (14.0-18.0) g/dL Hct 33.4 L (42-52) % Plt Count 179 (130-400) K/uL BMP 01/10/20 10:43 Sodium 139 Potassium 4.4 Chloride 105 Carbon Dioxide 30 BUN 15 Creatinine 3.19 H Glucose 98 Calcium 8.8 Cardiac Enzymes 01/10/20 Range/Units 10:43 Troponin I 0.624 H* (0-0.045) ng/ml Liver Function 01/10/20 Range/Units 10:43 Total Bilirubin 0.4 (0.2-1) mg/dl AST 20 (15-37) U/L ALT 14 (12-78) U/L Alkaline Phosphatase 183 H (45-117) U/L Albumin 2.8 L (3.4-5.0) gm/dl Diagnostic Findings CXR: IMPRESSION: Congestive heart failure ECG Findings: + PVC and + paced rhythm Code Status & VTE Plan VTE Prophylaxis Plan VTE Prophylaxis will be ordered: Yes Supervising Physician Co-Signing Physician Notes Attending addendum: Patient seen and examined, care coordinated with Nakia Honeycutt PA-C This is an 84-year-old male with complex past medical history of chronic systolic heart failure ejection fraction 30%, end-stage renal disease on dialy sis Sent from [facility], for worsening of shortness of breath volume overload More than 35,000, mild elevation of troponin/chronic, chest x-ray shows evidence of bilateral pulmonary congestion Patient had dialysis yesterday: Usual schedule Sunday Patient is anuric Admitted to telemetry, patient follows with [facility] for dialysis, consulted Does not appear to need emergent dialysis today Continue to monitor volume status Please refer to further documentation by Nakia Honeycutt PA-C for discussion of other chronic issues Corina Ayers MD
[2020-01-10] MEDS ORDERED: HydrALAZINE HCL 20 MG/ML VIAL IV PRN (16:44)
[2020-01-10] MEDS ORDERED: OXYCODONE HCL IR 5 MG TAB (IMMEDIATE RELEASE) PO PRN (16:44)
[2020-01-10] MEDS: DOCUSATE SODIUM/SENNA 50/8.6MG TAB PO SCH (18:09)
[2020-01-10] MEDS: CALCIUM ACETATE 667 MG CAP/TAB PO SCH (18:09)
[2020-01-10] MEDS ORDERED: DOCUSATE SODIUM/SENNA 50/8.6MG TAB PO SCH (21:00)
[2020-01-10] MEDS: TAMSULOSIN HCL 0.4 MG CAP PO SCH (21:32)
[2020-01-10] MEDS: ATORVASTATIN 40 MG TAB PO SCH (21:32)
[2020-01-10] MEDS: HEPARIN SOD 5,000 UNIT/0.5 ML VIAL SQ SCH (21:34)
[2020-01-10] MEDS: POLYETHYLENE (MIRALAX) 17 GM PACK PO SCH (21:34)
[2020-01-10] MEDS: OXYCODONE/ACETAMINOPHEN 5mg/325mg TAB PO SCH (21:37)
[2020-01-11] MEDS: DOCUSATE SODIUM/SENNA 50/8.6MG TAB PO SCH ×2 (08:19→17:17)
[2020-01-11] MEDS: ASPIRIN 81 MG ECTAB PO SCH (08:19)
[2020-01-11] MEDS: HEPARIN SOD 5,000 UNIT/0.5 ML VIAL SQ SCH ×2 (08:20→20:29)
[2020-01-11] MEDS: CALCIUM ACETATE 667 MG CAP/TAB PO SCH ×3 (08:20→17:18)
[2020-01-11] MEDS: POLYETHYLENE (MIRALAX) 17 GM PACK PO SCH ×2 (08:20→20:34)
[2020-01-11] MEDS: OXYCODONE/ACETAMINOPHEN 5mg/325mg TAB PO SCH ×2 (08:22→20:33)
[2020-01-11 08:24] LABS: BUN Creatinine Ratio 5.4 (10-20); Creatinine Clr Calc Pharmacy 14.6 ml/min; Est GFR (African American) 13.9; Potassium 4.5 mmol/L (3.5-5.1)
--- NOTE | 2020-01-11 10:31 | Nephrology Consultation ---
Date of Consultation January 11, 2020 Assessment & Plan (1) ESRD on dialysis: ESRD on HD MWF via a well functioning AVF. Last HD treatment Sunday. Currently ~3.3 kg above EDW. CXR with pulmonary vascular congestion and mild interstitial edema. Saturating well on room air. Denies any dyspnea currently. I certainly believe Javier may benefit from HD for ultrafiltration but he declined a treatment today during my limited discussion with him. I suspect he would benefit from having his EDW challenged and adjusted during future dialysis treatments. It seems that his dialysis unit is working on this. Electrolytes are acceptable. Weekend dialysis coverage at [facility] includes nursing availability for emergencies only on Sunday with a limited window during which to provide treatment, I confirmed this with the dialysis nurse track service person earlier this morning, and I explained this to Javier. Javier told me that he feels that he can wait for his scheduled treatment tomorrow. He told me that he expects to be discharged home today. I have not entered orders into the EMR for dialysis today based on this conversation. He did not demonstrate any respiratory distress from bedside assessment. I will re-evaluate after his scientologist service and discuss the current situation with the hospitalist. 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 No need for additional treatment at this time. (3) Ischemic cardiomyopathy: Will ask that EDW be adjusted during future dialysis treatments. History of Present Illness Reason for Consultation: ESRD on HD Requesting Physician: Khalif Lomeli MD Attending Physician: Khalif Lomeli MD History of Present Illness Mr. Javier Poon is an 84-year-old male end-stage renal disease. He is a resident at [facility] while recuperating from several recent falls and ambulatory dysfunction. Javier is on IHD at [facility] under the care of Dr. Jj. Dialysis schedule is MWF. The patient's last HD treatment was Sunday. Rx has been 3 hrs 45 minutes on a 180 optiflux with Qb 450 / Qd 800. EDW has been ~92 kg. On Sunday, net UF was 1.8 kg. Javier left slightly below his EDW. Last week, post weights had been down to 91.5 kg. Typical UF has been less than 3 kg per treatment consistent with IDWG. BP has been stable. There is a prior history of intradialytic hypotension, including that noted during recent hospital admissions. However, there have not been issues documented regarding blood pressure during hemodialysis since discharge from [facility] on January 02. Javier was admitted to [facility] yesterday evening after he presented with shortness of b reath. Evaluation concerning for volume overload. CXR demonstrating pulmonary vascular congestion and some interstitial edema. Weight is 95.3 kg today. She is saturating well on room air. He was breathing comfortably at bedside assessment. He has been on the phone this morning for a scientologist service and has asked me not to disturb him. He did tell me that [facility] and that he does not feel like he needs dialysis. He denied any concerns with his breathing at this time. Javier has been on dialysis since 2011. 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 He also has a history of hydroureteronephrosis involving the right kidney. Past medical history is notable for hypertension, ASCVD with CABG x 4 in , ischemic cardiomyopathy with reduced systolic function, bioprosthetic AVR, dual- chamber pacemaker for symptomatic bradycardia, paroxysmal atrial fibrillation, and BPH. Recent history has included multiple hospital admissions. Most recently he was admitted earlier this month with fecal retention and stool impaction. Review of the medical record suggests persistent nausea and decreased appetite. Weight certainly may be dropping requiring adjustment of EDW. Javier was admitted in early November after a fall while going into the dialysis unit. He suffered faractures bilaterally of the superior and inferior pubic rami, the sacrum, and an L1 compression fracture. Pain has been managed with continued use of oxyco done. Allergies Allergy/AdvReac Type Severity Reaction Status Date / Time No Known Drug Allergies Allergy Unknown . Verified 01/10/20 11:01 Home Medications Home Medications Medication Instructions Recorded Confirmed Type oxycodone-acetaminophen 5 mg-325 1 tab PO BID #60 tab 11/05/19 01/10/20 Rx mg tablet atorvastatin 40 mg PO DAILY@202911/19/19 01/10/20 History nitroglycerin [Nitrostat] 0.4 mg SUBLINGUAL UD PRN 11/19/19 01/10/20 History aspirin [Aspir-81] 81 mg PO DAILY@0801/01/20 01/10/20 History calcium acetate 1,334 mg PO TIDM 01/01/20 01/10/20 History oxycodone 5 mg PO Q8H PRN 01/01/20 01/10/20 History tamsulosin [Flomax] 0.4 mg PO DAILY@202901/01/20 01/10/20 History docusate sodium 100 mg PO BID #30 cap 01/03/20 01/10/20 Rx polyethylene glycol 3350 [Miralax] 17 g PO BID #30 ea 01/03/20 01/10/20 Rx sennosides-docusate sodium 1 tab PO BID #30 tab 01/03/20 01/10/20 Rx [Senokot-S] mirtazapine 7.5 mg PO DAILY@202901/10/20 01/10/20 History Patient History Medical History Anemia 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) ASCVD (arteriosclerotic cardiovascular disease) (Chronic) BPH (benign prostatic hyperplasia) (Chronic) Bullous pemphigoid (Chronic) Dialysis patient Dyslipidemia (Chronic) ESRD on dialysis (Chronic) HTN (hypertension) (Chronic) Pacemaker (Chronic) Pacemaker Renal calculi (Chronic) Surgical History Aortic valve replaced (Chronic) H/O inguinal hernia repair (Chronic) History of cataract surgery (Chronic) History of tonsillectomy (Chronic) Hx of CABG (Chronic) Family History Other Coronary heart disease Hypertension Stroke Social History Preferred Language: Guyanese Communication Ability: Effective 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 Beliefs That Will Affect Care: None marital status: Current Living Situation: [facility] current occupational status: retired Other Information That Helps Us Care for You: No Feels Safe at Home: Yes Safety Concerns: Feels Safe At This Time Smoking Status: Former smoker Tobacco Type: cigarettes ; Do You Dip or Chew Tobacco: No ; Second Hand Exposure: No ; Tobacco Cessation Education Requested by Patient: No Hx Alcohol Use: No Hx Substance Use: No Review of Systems Review of Systems: All systems reviewed & are unremarkable except as noted in HPI & below Physical Exam Physical Exam: Limited at patient request and due to COVID 19 pandemic. Constitutional: well developed; no acute distress Respiratory: no respiratory distress and no labored breathing Results & Data Vital Signs (Past 12 Hours) Vital Signs Temp Pulse Pulse Resp BP Pulse Ox 01/11/20 07:59 36.6 C 71 17 144/79 H 96 01/11/20 07:17 61 01/11/20 04:12 36.6 C 57 L 16 125/70 98 01/10/20 23:02 70 Laboratory Results Laboratory Results - last 24 hr 01/10/20 01/10/20 01/10/20 10:43 10:43 10:43 PT 12.9 H INR 1.2 H APTT 25.1 PTT Ratio 0.9 VBG pH 7.41 VBG pCO2 50 VBG pO2 29 VBG HCO3 31 VBG O2 Saturation < 60.0 VBG Base Excess 5.7 Barometric Pressure 726.7 Sodium 139 Potassium 4.4 Chloride 105 Carbon Dioxide 30 Anion Gap 4.0 BUN 15 Creatinine 3.19 H Est Cr Clr Drug Dosing 19.6 Est GFR ( Amer) 19.5 Est GFR (Non-Af Amer) 16.8 BUN/Creatinine Ratio 4.6 L Glucose 98 Calcium 8.8 Magnesium 2.2 Total Bilirubin 0.4 AST 20 ALT 14 Alkaline Phosphatase 183 H Troponin I 0.624 H* NT-Pro-B Natriuret Pep > 84621 H Total Protein 6.7 Albumin 2.8 L Globulin 3.9 Albumin/Globulin Ratio 0.7 L Nasal Screen MRSA (PCR) 01/10/20 01/10/20 01/10/20 16:48 18:05 22:23 PT INR APTT PTT Ratio VBG pH VBG pCO2 VBG pO2 VBG HCO3 VBG O2 Saturation VBG Base Excess Barometric Pressure Sodium Potassium Chloride Carbon Dioxide Anion Gap BUN Creatinine Est Cr Clr Drug Dosing Est GFR ( Amer) Est GFR (Non-Af Amer) BUN/Creatinine Ratio Glucose Calcium Magnesium Total Bilirubin AST ALT Alkaline Phosphatase Troponin I 0.616 H* 0.547 H* NT-Pro-B Natriuret Pep Total Protein Albumin Globulin Albumin/Globulin Ratio Nasal Screen MRSA (PCR) Negative 01/11/20 08:01 PT INR APTT PTT Ratio VBG pH VBG pCO2 VBG pO2 VBG HCO3 VBG O2 Saturation VBG Base Excess Barometric Pressure Sodium 136 Potassium 4.5 Chloride 102 Carbon Dioxide 26 Anion Gap 7.0 BUN 23 H D Creatinine 4.21 H D Est Cr Clr Drug Dosing 14.6 Est GFR ( Amer) 13.9 Est GFR (Non-Af Amer) 12.0 BUN/Creatinine Ratio 5.4 L Glucose 91 Calcium 9.0 Magnesium Total Bilirubin AST ALT Alkaline Phosphatase Troponin I NT-Pro-B Natriuret Pep Total Protein Albumin Globulin Albumin/Globulin Ratio Nasal Screen MRSA (PCR) PG Care Time/CCT Total # of Minutes Spent Total Time Spent with Patient: Total time spent is greater than 50% in coordination of care (as documented) at patient's floor/unit and/or counseling patient: Coding Level of Care Code 87069 Inpt Consult Level 4 Diagnoses ESRD on dialysis N18.6; Z99.2 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
[2020-01-11] MEDS: TAMSULOSIN HCL 0.4 MG CAP PO SCH (20:27)
[2020-01-11] MEDS: ATORVASTATIN 40 MG TAB PO SCH (20:28)
--- NOTE | 2020-01-11 21:38 | Hospitalist Progress Note ---
Date of Service January 11, 2020 Assessment & Plan (1) Acute decompensated heart failure: History of chronic left ventricular systolic heart failure with LVEF of 24% per recent echo. Underlying ischemic cardiomyopathy. Presented with increasing SOB. Exam and radiographic findings indicate acute exacerbation of CHF. No FREDY or ARB due to renal failure and relatively low BP's. Has not been receiving evidence-based beta blockers because of relatively low BP's. Fluid management with hemodialysis. Follow weights, exams. (2) Troponin level elevated: Serum troponins 0.624, 0.616, 0.547. Chronically elevated troponins due to CKD. Doubt acute coronary syndrome. (3) ASCVD (arteriosclerotic cardiovascular disease): No anginal symptoms. Not on beta charan due to relatively low BP's. Continue aspirin and statin. (4) ESRD on dialysis: Followed by Dr. Jj for CKD V on hemodialysis. Management per Nephrology. 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 Management per Nephrology. (6) DVT prophylaxis: SQ heparin. Ambulate. (7) Discharge planning issues: Return to [facility] vs discharge to home? Nephrology follow-up with Dr. Jj. Cardiology follow-up with Dr. Wheat. Admission and Anticipated Discharge Date Admission Date: January 10, 2020 Subjective Recheck for CHF and other problems. Patient seen in their room around 0930. Still feels SOB. No fever or cough. No chest pain. Review of Systems: Constitutional- no fever. Cardiac- as noted above. Pulmonary- no cough. GI- no nausea, vomiting, diarrhea, melena, hematochezia. - anuric. Otherwise, as noted above. Physical Exam Constitutional: no acute distress Respiratory: no respiratory distress Auscultation: + rales (bibasilar) Cardiovascular: Rate/Rhythm: regular rate and regular rhythm Heart Sounds: + gallop and + murmur (II/ sys murmur at base); no cardiac rub Vessels: + JVD Extremities: + edema (1+); no calf tenderness Gastrointestinal (Abdomen): normal bowel sounds, soft, nontender, no hepatosplenomegaly Musculoskeletal: Extremities: no cyanosis Skin: no rashes, warm and dry Psychiatric: Orientation: alert and oriented x 3 Results & Data Results & Data ([facility]) Vital Signs (Past 12 Hours) Vital Signs Temp Pulse Pulse Resp BP Pulse Ox 01/11/20 18:54 36.7 C 76 18 128/78 96 01/11/20 15:18 63 01/11/20 11:45 36.6 C 63 16 122/69 95 Laboratory Results Laboratory Results - last 24 hr 01/10/20 01/11/20 22:23 08:01 Sodium 136 Potassium 4.5 Chloride 102 Carbon Dioxide 26 Anion Gap 7.0 BUN 23 H D Creatinine 4.21 H D Est Cr Clr Drug Dosing 14.6 Est GFR ( Amer) 13.9 Est GFR (Non-Af Amer) 12.0 BUN/Creatinine Ratio 5.4 L Glucose 91 Calcium 9.0 Troponin I 0.547 H*
[2020-01-12] MEDS ORDERED: SODIUM CHLORIDE 0.9% 1000ML 1,000 ML IV PRN ×2 (07:00)
[2020-01-12] MEDS ORDERED: HEPARIN SOD (PORCINE) 1000 UNIT/ML 10 ML VIAL IV SCH (07:00)
[2020-01-12 07:21] LABS: BUN Creatinine Ratio 6.1 (10-20); Calcium 8.4 mg/dl (8.5-10.1); Creatinine Clr Calc Pharmacy 11.6 ml/min; Est GFR (African American) 10.4; Magnesium 2.4 mg/dl (1.8-2.4); Potassium 5.3 mmol/L (3.5-5.1)
[2020-01-12] MEDS: CALCIUM ACETATE 667 MG CAP/TAB PO SCH ×3 (08:02→20:00)
[2020-01-12] MEDS: HEPARIN SOD 5,000 UNIT/0.5 ML VIAL SQ SCH ×2 (08:03→20:34)
[2020-01-12] MEDS: ASPIRIN 81 MG ECTAB PO SCH (08:03)
[2020-01-12] MEDS: DOCUSATE SODIUM/SENNA 50/8.6MG TAB PO SCH ×2 (08:03→20:02)
--- NOTE | 2020-01-12 09:30 | Hospitalist Progress Note ---
Date of Service January 12, 2020 Assessment & Plan (1) Acute decompensated heart failure: History of chronic left ventricular systolic heart failure with LVEF of 24% per recent echo. Underlying ischemic cardiomyopathy. Presented with increasing SOB. Exam and radiographic findings indicate acute exacerbation of CHF. No FREDY or ARB due to renal failure and relatively low BP's. Has not been receiving evidence-based beta blockers because of relatively low BP's. Fluid management with hemodialysis. Follow weights, exams. (2) Troponin level elevated: Serum troponins 0.624, 0.616, 0.547. Chronically elevated troponins due to CKD. Doubt acute coronary syndrome. (3) ASCVD (arteriosclerotic cardiovascular disease): No anginal symptoms. Not on beta charan due to relatively low BP's. Continue aspirin and statin. (4) ESRD on dialysis: Followed by Dr. Jj for CKD V on hemodialysis. Management per Nephrology. Receiving HD today (01/11). (5) Non-sustained ventricular tachycardia: Had a 19 beat run of VT noted on telemetry early this morning. Evaluated by Dr. Wheat. Pacemaker is working appropriately. Continue to monitor. 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 Management per Nephrology. Dr. Jj recommends EGD and colonoscopy during admission checking for possible sources of chronic blood loss. (7) DVT prophylaxis: SQ heparin. Ambulate. (8) Discharge planning issues: Return to [facility] vs discharge to home? Nephrology follow-up with Dr. Jj. Cardiology follow-up with Dr. Wheat. Patient seen in collaboration with Dr. Lomeli. Please see addendum. Admission and Anticipated Discharge Date Admission Date: January 10, 2020 Supervising Physician Co-Signing Physician Notes HISTORY: Record reviewed. Patient interviewed and examined around 1910. Care coordinated with Nakia Honeycutt PA-C. Please refer to her documentation for complete history. Nonsustained VT x 19 beats during the night, asymptomatic. Underwent hemodialysis today. Less SOB. No chest pain. EXAM: General- no distress Lungs- few basilar rales; no respiratory distress Cardiovascular- RRR with occasional ectopy; II/ systolic murmur at base; no gallop or rub appreciated; trace pretibial edema Abdomen- + bowel sounds, soft, nontender Extremities- no cyanosis; no calf tenderness Neuro- alert, oriented Skin- warm & dry DATA: 01/12/20 05:56 ASSESSMENT AND PLAN: CHF Fluid management with hemodialysis. No FREDY or ARB because of CKD. No beta blockers because of low BP's. ELEVATED TROPONIN Chronic elevation due to CKD. CAD Continue ASA and statin. No beta blockers because of low BP's. CKD IV ON HD ANEMIA May be multifactorial. Anemia of CKD. No gross GI bleeding. Endoscopic evaluation may have more risk than benefit in light of severe ischemic cardiac disease. VTE PROPHYLAXIS SQ heparin. Please refer to VENKATESH Honeycutt's documentation for discussion of other issues. Subjective Seen and examined in 279-1. Patient feeling fatigued and SOB. Kermit better after repositioned to a more upright position. No fever or chills. Denies lightheadedness, cough, chest pain, palpitations, nausea, vomiting, abdominal pain. Does not make urine. Has been moving bowels. Due to start HD soon. Review of Systems Review of Systems: At least ten systems reviewed and negative except as noted in the HPI. Physical Exam Physical Exam: General Appearance: WD/WN, vitals as above, appears chronically ill, sitting up in bed, conversational dyspnea Head: normocephalic, atraumatic Eyes: normal inspection, PERRL, conjunctivae normal ENT: external ear and nose normal, oropharynx normal Neck: trachea midline, no thyromegaly normal visual inspection Respiratory: normal respiratory effort, + bibasilar rales, no wheeze or rhonchi Cardiovascular: regular rate & rhythm, systolic murmur, normal peripheral pulses, 1+ pedal edema. +JVD Chest: normal inspection of chest Abdomen/GI: normal bowel sounds, soft, nontender, no hepatosplenomegaly Extremities/Musculoskeletal: no cyanosis or clubbing, extremities motor strength 5/5. + LUE dialysis fistula with palpable thrill Neurologic: PERRL, EOMI, CN's II-XI intact bilaterally and moves all extremities Psychiatric: A+Ox3, euthymic affect Skin: no rashes, normal color, warm/dry Results & Data Results & Data ([facility]) Vital Signs (Past 12 Hours) Vital Signs Temp Pulse Pulse Resp BP Pulse Ox 01/12/20 07:44 36.4 C L 78 18 138/74 99 01/12/20 07:05 60 01/12/20 04:00 36.8 C 86 18 135/76 96 01/12/20 00:25 60 01/11/20 22:00 36.5 C 69 18 130/77 98 Laboratory Results [facility] 01/12/20 05:56 Sodium 136 Potassium 5.3 H D Chloride 103 Carbon Dioxide 27 BUN 33 H Creatinine 5.34 H* D Glucose 80 Calcium 8.4 L
[2020-01-12] MEDS: POLYETHYLENE (MIRALAX) 17 GM PACK PO SCH ×2 (09:55→20:34)
[2020-01-12] MEDS: OXYCODONE/ACETAMINOPHEN 5mg/325mg TAB PO SCH ×2 (10:22→20:34)
--- NOTE | 2020-01-12 10:29 | Dialysis Progress Note ---
Date of Service January 12, 2020 Assessment & Plan (1) ESRD on dialysis: (2) ASCVD (arteriosclerotic cardiovascular disease): Admission and Anticipated Discharge Date Admission Date: Mr. Poon has end-stage renal disease. He is an elderly gentleman with advanced ASCVD including a history of coronary artery disease and an ischemic cardiomyopathy with a history of congestive heart failure. Currently, he appears to be fairly stable. He is anemic with hypochromic and microcytic red cell indices. He has had a variety of GI symptoms and complaints that have waxed and waned over the years and have been evaluated previously, but not recently. He will receive his regular hemodialysis treatment today. We will try to drop his dry weight as long as his blood pressure holds up. I do think it is worthwhile, during this hospitalization, to do an EGD and colonoscopy checking for possible sources of chronic blood loss. He has been receiving IV iron in the dialysis unit and perhaps that is the reason that his hemoglobin has not dropped further if he is, indeed, GI bleeding. Given his history of aortic valvular disease, angiodysplasia involving the colon is a possibility. However, that would not explain his GI symptomatology. Subjective Mr. Poon says that he is feeling a bit better. He denies having any shortness of breath, at rest with oxygen being administered by nasal cannula. He denies having any chest pain. He has no specific symptoms of uremia or volume overload. He says that his appetite is "fair." However, he has complained of a poor appetite off and on for quite some time. Additionally, he has had some intermittent problems with constipation. However, he says that at the current time, if his trach has something on it that he likes he eats everything without any difficulty swallowing or problems with abdominal pain or nausea. Additionally, he says that his bowels are working "fair." He is scheduled for dialysis today. Orders have been written. Physical Exam Physical Exam: On physical examination, Mr. Poon appears comfortable and not at all short of breath. However, he does appear somewhat pale and chronically ill. His blood pressure this morning is 138/74. His pulse is 78 and regular. Respiratory rate is 18 with a pulse ox of 99% on room air although he currently is receiving oxygen via nasal cannula. He is afebrile (36.4). His skin shows normal skin turgor. He has scars from prior surgical procedures. There is no palpable lymphadenopathy. His head is grossly normal. Eyes are grossly normal. The ocular fundi were not examined. Ears, nose, mouth and throat are unremarkable. His oral mucous membranes are moist. His neck is supple. He has minimal jugular venous distention lying at about 45 degrees. I hear no carotid bruit. There is no thyromegaly. His chest is clear to auscultation. He has palpable pacemakers beneath both distal clavicles. Cardiac exam shows a regular rhythm. S1 and S2 seem normal. There is a grade 3/6 systolic murmur at the upper left sternal border and base radiating toward the neck. He has no gallops or rubs. His abdomen is nontender. There is no organomegaly or mass. Bowel sounds are normal. Extremities show no cyanosis, clubbing or peripheral edema. He has a left arm AV fistula that functions well. He has no current peripheral edema but does have 1+ sacral edema. His neurologic exam shows no lateralizing changes. Results & Data ([facility]) Vital Signs (Past 12 Hours) Vital Signs Temp Pulse Pulse Resp BP Pulse Ox 01/12/20 07:44 36.4 C L 78 18 138/74 99 01/12/20 07:05 60 01/12/20 04:00 36.8 C 86 18 135/76 96 01/12/20 00:25 60 Laboratory Results Laboratory Results - last 24 hr 01/12/20 05:56 Sodium 136 Potassium 5.3 H D Chloride 103 Carbon Dioxide 27 Anion Gap 6.0 BUN 33 H Creatinine 5.34 H* D Est Cr Clr Drug Dosing 11.6 Est GFR ( Amer) 10.4 Est GFR (Non-Af Amer) 9.0 BUN/Creatinine Ratio 6.1 L Glucose 80 Calcium 8.4 L Magnesium 2.4 [facility] Procedure Codes (Charges) Renal/Urologic Renal/Urologic: 22096 Hemodialysis, One Evaluation Coding Level of Care Code 55216 Subseq Hosp Care Lv 3 Diagnoses ESRD on dialysis N18.6; Z99.2 ASCVD (arteriosclerotic cardiovascular disease) I25.10 CPT Codes Renal/Urologic - Renal/Urologic: 62095 Hemodialysis, One Evaluation ([id number])
[2020-01-12] MEDS: HEPARIN SOD (PORCINE) 1000 UNIT/ML 10 ML VIAL IV SCH (16:55)
--- NOTE | 2020-01-12 17:11 | Cardiology Progress Note ---
Date of Service January 12, 2020 Assessment & Plan (1) Acute decompensated heart failure: -volume managed by hemodialysis -improved over status at time of presentation -on no ACEI or ARB due to renal disease -on no beta-charan due to hypotension (2) Ischemic cardiomyopathy: -LVEF of 20-25% on echocardiogram earlier this month. -global hypokinesis and distal anterior wall akinesis -medical management difficult as described above (3) ASCVD (arteriosclerotic cardiovascular disease): -history of CABG x4, July 2007 -no recent angina pectoris (4) Pacemaker: -DDD pacer placed October 2011 -symptomatic bradycardia -normal function at time of last interrogation (5) Aortic valve replaced: -porcine AVR, July 2007 Admission and Anticipated Discharge Date Admission Date: January 10, 2020 Subjective The patient is resting comfortably in bed without complaints of chest pain or dyspnea. Greatly improved over his symptoms at time of presentation. Physical Exam Physical Exam: In general this is a well-developed well-nourished white male in no acute distress. HEENT exam is negative. Neck is supple with full carotid upstrokes. There are no carotid bruits. Jugular venous pressure is flat at 90. There is no thyromegaly. Cardiovascular exam reveals a regular rhythm with distant heart sounds. A 1/6 basal systolic ejection murmur is noted. Lungs are clear without rales, rhonchi, or wheezes. Abdomen is soft and nontender without bruits. Extremities reveal intact radial artery bilaterally. There is no peripheral edema. Results & Data ([facility]) Vital Signs (Past 12 Hours) Vital Signs Temp Pulse Pulse Pulse Resp BP BP 01/12/20 16:40 85 133/63 01/12/20 16:20 54 L 133/64 01/12/20 16:00 60 132/63 01/12/20 15:40 60 128/88 01/12/20 15:25 36.6 C 60 01/12/20 15:16 37.1 C 62 19 126/72 01/12/20 11:42 36.9 C 66 18 129/73 01/12/20 07:44 36.4 C L 78 18 138/74 01/12/20 07:05 60 Pulse Ox 01/12/20 16:40 01/12/20 16:20 01/12/20 16:00 01/12/20 15:40 01/12/20 15:25 01/12/20 15:16 97 01/12/20 11:42 96 01/12/20 07:44 99 01/12/20 07:05 Diagnostic Findings wedding florist noted 119 beat run of ventricular tachycardia last evening. PG Care Time/CCT Total # of Minutes Spent Total Time Spent with Patient: Total time spent is greater than 50% in coordination of care (as documented) at patient's floor/unit and/or counseling patient: Coding Level of Care Code 38597 Subseq Hosp Care Lvl 3 Diagnoses Acute decompensated heart failure I50.9 Ischemic cardiomyopathy I25.5 ASCVD (arteriosclerotic cardiovascular disease) I25.10 Pacemaker Z95.0 Aortic valve replaced Z95.2
[2020-01-12] MEDS: TAMSULOSIN HCL 0.4 MG CAP PO SCH (20:01)
[2020-01-12] MEDS: ATORVASTATIN 40 MG TAB PO SCH (20:01)
[2020-01-13] MEDS: DOCUSATE SODIUM/SENNA 50/8.6MG TAB PO SCH ×2 (07:52→16:44)
[2020-01-13] MEDS: CALCIUM ACETATE 667 MG CAP/TAB PO SCH ×3 (07:52→16:43)
[2020-01-13] MEDS: ASPIRIN 81 MG ECTAB PO SCH (07:53)
[2020-01-13] MEDS: POLYETHYLENE (MIRALAX) 17 GM PACK PO SCH ×2 (07:54→20:06)
[2020-01-13] MEDS: OXYCODONE/ACETAMINOPHEN 5mg/325mg TAB PO SCH ×2 (07:54→20:00)
[2020-01-13 07:55] LABS: Hematocrit (blood only) 32.5 % (42-52); Hemoglobin 10.2 g/dL (14.0-18.0); Mean Corpuscular Hemoglobin 23.4 pg (25-34); Mean Corpuscular Hgb Conc 31.4 g/dL (32-36); Mean Corpuscular Volume 74.5 fL (80-100); Platelet Count 155 K/uL (130-400); RDW Coefficient of Variation 16.9 % (11.5-14.5); Red Blood Count 4.36 M/uL (4.7-6.1); White Blood Count 4.96 K/uL (4.8-10.8)
[2020-01-13] MEDS: HEPARIN SOD 5,000 UNIT/0.5 ML VIAL SQ SCH ×2 (07:58→20:01)
[2020-01-13 08:23] LABS: BUN Creatinine Ratio 5.2 (10-20); Calcium 8.7 mg/dl (8.5-10.1); Creatinine Clr Calc Pharmacy 14.7 ml/min; Est GFR (African American) 14.3; Est GFR (Non-African American) 12.4; Potassium 4.6 mmol/L (3.5-5.1)
--- NOTE | 2020-01-13 10:00 | Nephrology Progress Note ---
Date of Service January 13, 2020 Assessment & Plan (1) ESRD on dialysis: No immediate changes. We will see what GI plans with regard to an evaluation of his previous symptoms. We will plan on hemodialysis again tomorrow. A chest x-ray may be helpful in estimating his volume status. Admission and Anticipated Discharge Date Admission Date: January 10, 2020 Subjective Mr. Poon continues to feel somewhat weak and fatigued. He denies being short of breath. He has had no chest pain. His dialysis treatment yesterday was uneventful. He says that his appetite is fair. However, it continues to come and go. He has not had any symptoms of dysphagia but has complained of that in the past. A previous barium swallow, upper GI was canceled. Additionally, he has had some intermittent difficulties with constipation. That symptom has come and gone frequently. He has not had a colonoscopy in quite some time. He has been slowly losing some dry weight. He denies having any shaking chills or night sweats. The remainder of his review of systems is noncontributory at this point. Physical Exam Physical Exam: On physical examination, Mr. Poon appears as an elderly chronically ill gentleman who was in no acute distress when seen. He did have somewhat of a depressed affect. His blood pressure is 138/75 with a pulse of 69 and regular. His respiratory rate is 18. His oxygen saturation was 100% on 2 L of oxygen via nasal cannula. He is afebrile (36.6). His skin shows normal skin turgor. He has no rash or infiltrative skin disease. He has a few scattered ecchymoses. He has a left upper arm AV fistula. He has a midsternal scar from prior cardiac surgery and a scar beneath the distal right clavicle from the placement of his pacemaker. There is no palpable lymphadenopathy. His head is normal. Eyes are grossly normal. The ocular fundi were not examined. Ears, nose, mouth and throat are unremarkable. His oral mucous membranes are moist. His neck is supple. He has no jugular venous distention lying at about 60 degrees. He has no carotid bruit. There is no thyromegaly. His chest shows a few bibasilar crackles but is otherwise clear. Diaphragms are elevated related to his body habitus and positioning. Cardiac exam shows a regular rhythm. He has normal bioprosthetic valve sounds. He has a grade 2/6 to 3/6 systolic murmur at the base radiating toward the neck. I hear no gallops. He has no rubs. His abdomen is somewhat protuberant. It is nontender. There is no organomegaly or mass. Bowel sounds are normal. I hear no abdominal bruits. Extremities show no cyanosis, clubbing or peripheral edema. Peripheral pulses are diminished in his lower extremities. He has a left upper arm AV fistula with a good pulse, thrill and bruit. The bruit radiates into the left upper chest. His neurologic exam shows no asterixis and no lateralizing neurologic changes. Results & Data ([facility]) Vital Signs (Past 12 Hours) Vital Signs Temp Pulse Pulse Pulse Resp BP Pulse Ox 01/13/20 07:41 36.6 C 69 18 138/75 100 01/13/20 07:30 67 01/13/20 03:11 36.5 C 81 21 113/67 97 01/13/20 02:05 82 01/12/20 23:51 36.6 C 76 20 113/70 96 Laboratory Results Laboratory Results - last 24 hr 01/13/20 01/13/20 07:20 07:20 WBC 4.96 RBC 4.36 L Hgb 10.2 L Hct 32.5 L MCV 74.5 L MCH 23.4 L MCHC 31.4 L RDW Std Deviation 46.0 RDW Coeff of Gill 16.9 H Plt Count 155 Sodium 136 Potassium 4.6 Chloride 103 Carbon Dioxide 29 Anion Gap 5.0 BUN 21 H Creatinine 4.11 H D Est Cr Clr Drug Dosing 14.7 Est GFR ( Amer) 14.3 Est GFR (Non-Af Amer) 12.4 BUN/Creatinine Ratio 5.2 L Glucose 84 Calcium 8.7 PG Care Time/CCT Total # of Minutes Spent Total Time Spent with Patient: Total time spent is greater than 50% in coordination of care (as documented) at patient's floor/unit and/or counseling patient: 35 min. Coding Level of Care Code 10191 Subseq Hosp Care Lvl 3 Diagnoses ESRD on dialysis N18.6; Z99.2
[2020-01-13] MEDS: ATORVASTATIN 40 MG TAB PO SCH (20:01)
[2020-01-13] MEDS: TAMSULOSIN HCL 0.4 MG CAP PO SCH (20:01)
--- NOTE | 2020-01-13 20:39 | Hospitalist Progress Note ---
Date of Service January 13, 2020 Assessment & Plan (1) Acute decompensated heart failure: History of chronic left ventricular systolic heart failure with LVEF of 24% per recent echo. Underlying ischemic cardiomyopathy. Presented with increasing SOB. Exam and radiographic findings indicate acute exacerbation of CHF. No FREDY or ARB due to renal failure and relatively low BP's. Has not been receiving evidence-based beta blockers because of relatively low BP's. Fluid management with hemodialysis. Follow weights, exams. (2) Troponin level elevated: Serum troponins 0.624, 0.616, 0.547. Chronically elevated troponins due to CKD. Doubt acute coronary syndrome. (3) ASCVD (arteriosclerotic cardiovascular disease): No anginal symptoms. Not on beta charan due to relatively low BP's. Continue aspirin and statin. (4) ESRD on dialysis: Followed by Dr. Jj for CKD V on hemodialysis. Management per Nephrology. (5) Non-sustained ventricular tachycardia: 19 beat run of nonsustained VT noted on nurse monitoring, asymptomatic. K normal. Continue cardiac monitoring. 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 Management per Nephrology. (7) Dysphagia: Patient has experienced intermittent dysphagia. EGD considered, but increased risk to cardiac issues. UGI recommended, but patient declines; reconsider if symptoms recur. (8) DVT prophylaxis: SQ heparin. Ambulate. (9) Discharge planning issues: Return to [facility] vs discharge to home? Patient hopes to return home where he lives with his . Still requiring walker + 1-2 person assist. May need ongoing skilled care. Nephrology follow-up with Dr. Jj. Cardiology follow-up with Dr. Wheat. Son given update by phone this evening. He expresses concerns that pt lives with his elderly and that his functional status needs to be adequate before he can return home safely. Admission and Anticipated Discharge Date Admission Date: January 10, 2020 Subjective Recheck for CHF and other problems. Patient seen in their room around 1640. Less SOB. No fever or cough. No chest pain. Seen by PT today. Ambulated with assistance and walker. Review of Systems: Constitutional- no fever. Cardiac- as noted above. Pulmonary- no cough. GI- no dysphagia, nausea, vomiting, diarrhea, melena, hematochezia. - anuric. Otherwise, as noted above. Physical Exam Constitutional: no acute distress Respiratory: normal respiratory effort, lungs clear to auscultation + respiratory distress Cardiovascular: Rate/Rhythm: regular rate and regular rhythm (with ectopy) Heart Sounds: + gallop and + murmur (II/ sys murmur at base); no cardiac rub Vessels: + JVD Extremities: + edema (trace pretibial); no calf tenderness Gastrointestinal (Abdomen): normal bowel sounds, soft, nontender, no hepatospl enomegaly Musculoskeletal: Extremities: no cyanosis Skin: no rashes, warm and dry Psychiatric: Orientation: alert and oriented x 3 Results & Data Results & Data ([facility]) Vital Signs (Past 12 Hours) Vital Signs Temp Pulse Pulse Pulse Resp BP Pulse Ox 01/13/20 19:24 77 01/13/20 19:19 36.3 C L 76 19 115/60 95 01/13/20 16:00 36.5 C 64 18 132/63 96 01/13/20 14:51 97 01/13/20 12:00 36.4 C L 77 18 135/72 97 Laboratory Results 01/13/20 07:20 01/13/20 07:20
[2020-01-14] MEDS ORDERED: HEPARIN SOD (PORCINE) 1000 UNIT/ML 10 ML VIAL IV ONE (07:00)
[2020-01-14] MEDS ORDERED: EPOETIN ALFA 20,000 UNITS/ML VIAL IV ONE (07:00)
[2020-01-14] MEDS ORDERED: SODIUM CHLORIDE 0.9% 1000ML 1,000 ML IV PRN (07:00)
[2020-01-14] MEDS: OXYCODONE/ACETAMINOPHEN 5mg/325mg TAB PO SCH ×2 (08:27→20:34)
[2020-01-14 09:38] LABS: BUN Creatinine Ratio 6.3 (10-20); Calcium 8.6 mg/dl (8.5-10.1); Creatinine Clr Calc Pharmacy 11.1 ml/min; Est GFR (African American) 10.2; Est GFR (Non-African American) 8.8; Potassium 5.1 mmol/L (3.5-5.1)
--- NOTE | 2020-01-14 09:49 | Dialysis Progress Note ---
Date of Service January 14, 2020 Assessment & Plan (1) ESRD on dialysis: Mr. Poon appears to be relatively stable this morning. He is due for his regular dialysis treatment. Orders have been placed. Since he has refused an upper GI and since endoscopy, at this time, does not seem appropriate, he should be able to return to [facility] tomorrow. He should be discharged on his usual medications. He will continue to get intravenous iron in the dialysis unit as well as his erythropoietin because of his chronic anemia. No other immediate recommendations for now. I will continue to follow him as an inpatient and obviously after his discharge. Admission and Anticipated Discharge Date Admission Date: January 10, 2020 Subjective Mr. Poon says that he is feeling relatively well this morning. He denies having any chest pain and denies shortness of breath. He says that his appetite is fair and that he did eat breakfast. He denies having any symptoms of dysphagia or abdominal pain. He has had no nausea or vomiting. He has no symptoms specific for uremia or volume overload. He has had no episodes of palpitations or lightheadedness. The night before last, he did have an apparent 19 beat run of presumed ventricular tachycardia. He was unaware of the event. He has a history of dysphagia and nonspecific abdominal pains. He has had long periods of constipation. That is not a current issue. He denies having hematochezia.He has a history of a hypochromic microcytic smear. His serum ferritin has been within the normal range but transferrin saturations have been low. We have tried to schedule him for an upper GI as an outpatient. However, that was canceled and subsequently the patient refused.We suggested an upper endoscopy and possible flexible fiberoptic sigmoidoscopy while here to look into some of his GI symptoms. However, endoscopies are now felt to be too risky for him given his age and general debility as well as his recent episode of apparent ventricular tachycardia. He is scheduled for hemodialysis today. He is anxious to return home. However, given his general debility and history of falls I do not think that he is capable of living at home at the current time. 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 She has been unable to help him in the past to the extent that it is needed. I think transfer back to [facility] would seem to be most appropriate. Physical Exam Physical Exam: On physical examination at the current time, Mr. Poon appears as a chronically ill gentleman of about his stated age of 84. He was lying quietly in bed. His general mood seemed to be a bit more upbeat today than it has been earlier in his hospital stay. His blood pressure is 129/71. His pulse is 67 and regular. Respiratory rate is 20 and his oxygen saturation 100% on 2 L of oxygen via nasal cannula. He is afebrile (36.6 C). His skin shows normal skin turgor. 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 He has a left antecubital scar from the creation of his left upper arm AV fistula and he has multiple dialysis needle track villalobos over the fistula. He has scattered ecchymoses. Lymphatics show no palpable adenopathy. His head is grossly normal. Eyes are grossly normal. The ocular fundi were not examined. Ears, nose, mouth and throat are unremarkable. His oral mucous membranes are moist. His neck is supple. At about 60 degrees, he has no obvious jugular venous distention. He has a soft carotid murmur that appears to be transmitted from a murmur at the base of his heart. He has no thyromegaly. His chest is clear to auscultation. However, diaphragms are elevated and breath sounds are diminished at the bases consistent with his body habitus and positioning in bed. Cardiac exam shows a regular rhythm. He has normal bioprosthetic valve sounds. He has a grade 3/6 systolic ejection murmur at the base radiating toward the neck. It is also heard along the left sternal border and at the apex. He does have a murmur transmitted into the left upper chest anteriorly from his AV fistula. His abdomen is somewhat obese. It is nontender. He has no obvious organomegaly or mass. He has no peripheral edema. He has trace sacral edema. 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 His neurologic exam shows no lateralizing changes. He does not have asterixis. Results & Data ([facility]) Vital Signs (Past 12 Hours) Vital Signs Temp Pulse Pulse Pulse Resp BP Pulse Ox 01/14/20 07:22 36.6 C 67 20 129/71 100 01/14/20 03:25 36.5 C 77 19 146/73 H 95 01/14/20 00:50 60 01/13/20 23:48 36.6 C 65 19 134/69 99 Laboratory Results Laboratory Results - last 24 hr 01/14/20 08:14 Sodium 136 Potassium 5.1 Chloride 102 Carbon Dioxide 28 Anion Gap 6.0 BUN 35 H D Creatinine 5.44 H* D Est Cr Clr Drug Dosing 11.1 Est GFR ( Amer) 10.2 Est GFR (Non-Af Amer) 8.8 BUN/Creatinine Ratio 6.3 L Glucose 91 Calcium 8.6 [facility] Procedure Codes (Charges) Renal/Urologic Renal/Urologic: 16720 Hemodialysis, One Evaluation Coding Level of Care Code 06707 Subseq Hosp Care Lv 3 Diagnoses ESRD on dialysis N18.6; Z99.2 CPT Codes Renal/Urologic - Renal/Urologic: 83842 Hemodialysis, One Evaluation ([id number])
[2020-01-14] MEDS: CALCIUM ACETATE 667 MG CAP/TAB PO SCH ×3 (11:38→16:58)
[2020-01-14] MEDS: HEPARIN SOD 5,000 UNIT/0.5 ML VIAL SQ SCH ×2 (11:38→20:33)
[2020-01-14] MEDS: DOCUSATE SODIUM/SENNA 50/8.6MG TAB PO SCH ×2 (11:38→17:00)
[2020-01-14] MEDS: POLYETHYLENE (MIRALAX) 17 GM PACK PO SCH ×2 (14:12→20:33)
[2020-01-14] MEDS: HEPARIN SOD (PORCINE) 1000 UNIT/ML 10 ML VIAL IV SCH (14:32)
[2020-01-14] MEDS: ASPIRIN 81 MG ECTAB PO SCH (16:58)
--- NOTE | 2020-01-14 19:27 | Hospitalist Progress Note ---
Date of Service January 14, 2020 Assessment & Plan (1) Acute decompensated heart failure: History of chronic left ventricular systolic heart failure with LVEF of 24% per recent echo. Present on admission with worsening SOB CXR showed CHF on admission No FREDY or ARB due to renal failure and relatively low BP's. Has not been receiving evidence-based beta blockers because of relatively low BP's. Cardio on board Recent echo showed LVEF of 20-25% earlier this month and global hypokinesis and distal anterior wall akinesis Fluid management with hemodialysis. Continue oxygen supplement Clinically improved (2) Troponin level elevated: Serum troponins 0.624, 0.616, 0.547. Chronically elevated troponins due to CKD. Denies any chest pain Cardio on board EKG showed no ischemic changes Doubt acute coronary syndrome. (3) ASCVD (arteriosclerotic cardiovascular disease): No anginal symptoms. Not on beta charan due to relatively low BP's. Continue aspirin and statin. (4) ESRD on dialysis: Followed by Dr. Jj for CKD V on hemodialysis. Had HD done today Management per Nephrology. 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 EGD considered, but increased risk to cardiac issues. UGI recommended, but patient declines; reconsider if symptoms recur. (8) DVT prophylaxis: SQ heparin. Ambulate. (9) Discharge planning issues: Plan to return to [facility] vs discharge to home Nephrology follow-up with Dr. Jj. Cardiology follow-up with Dr. Wheat. Admission and Anticipated Discharge Date Admission Date: January 10, 2020 Subjective Pt was seen and examined Lying in bed with no distress Pt said that he feels much better He said that his breathing feels much better He said that he feels back to his baseline Denies any chest pain, palpitation, dizziness and fever Physical Exam Physical Exam: General- No acute distress Head- atraumatic Eyes- PERRL, EOMI, ENT- oropharynx clear Neck- supple, no JVD Lungs- No wheezing, No crackles Heart- regular rhythm; +murmur Abdomen- normal bowel sounds, soft, nontender Extremities- no calf tenderness, +edema Neuro- alert, oriented x 3; PERRL, EOMI; no facial palsy; no dysarthria Skin- warm & dry Results & Data Results & Data ([facility]) Vital Signs (Past 12 Hours) Vital Signs Temp Pulse Pulse Pulse Resp BP BP 01/14/20 16:40 36.5 C 70 132/65 01/14/20 16:20 82 129/72 01/14/20 16:00 82 126/75 01/14/20 15:40 86 124/60 01/14/20 15:32 73 01/14/20 15:20 80 131/79 01/14/20 15:00 68 113/58 L 01/14/20 14:40 76 108/58 L 01/14/20 14:20 69 108/51 L 01/14/20 14:00 65 92/46 L 01/14/20 13:40 68 85/58 L 01/14/20 13:20 76 117/82 01/14/20 13:00 61 95/47 L 01/14/20 12:31 36.5 C 69 01/14/20 11:29 36.4 C L 71 20 118/70 01/14/20 07:22 36.6 C 67 20 129/71 Pulse Ox 01/14/20 16:40 01/14/20 16:20 01/14/20 16:00 01/14/20 15:40 01/14/20 15:32 01/14/20 15:20 01/14/20 15:00 01/14/20 14:40 01/14/20 14:20 01/14/20 14:00 01/14/20 13:40 01/14/20 13:20 01/14/20 13:00 01/14/20 12:31 01/14/20 11:29 100 01/14/20 07:22 100
[2020-01-14] MEDS: TAMSULOSIN HCL 0.4 MG CAP PO SCH (20:33)
[2020-01-14] MEDS: ATORVASTATIN 40 MG TAB PO SCH (20:33)
[2020-01-15 06:33] LABS: BUN Creatinine Ratio 6.3 (10-20); Creatinine Clr Calc Pharmacy 17.1 ml/min; Est GFR (African American) 17.3; Est GFR (Non-African American) 14.9; Potassium 4.5 mmol/L (3.5-5.1)
[2020-01-15] MEDS: OXYCODONE/ACETAMINOPHEN 5mg/325mg TAB PO SCH (08:20)
[2020-01-15] MEDS: POLYETHYLENE (MIRALAX) 17 GM PACK PO SCH (08:21)
[2020-01-15] MEDS: DOCUSATE SODIUM/SENNA 50/8.6MG TAB PO SCH (08:22)
[2020-01-15] MEDS: CALCIUM ACETATE 667 MG CAP/TAB PO SCH ×2 (08:22→12:47)
[2020-01-15] MEDS: ASPIRIN 81 MG ECTAB PO SCH (08:23)
[2020-01-15] MEDS: HEPARIN SOD 5,000 UNIT/0.5 ML VIAL SQ SCH (08:24)
--- NOTE | 2020-01-15 09:47 | Nephrology Progress Note ---
Date of Service January 15, 2020 Assessment & Plan (1) ESRD on dialysis: Mr. Poon appears to be doing relatively well at the current time. His acute symptomatology of weakness and shortness of breath are both improved. He is looking forward to discharge today. I would think he needs to be transferred back to [facility] for continued physical therapy. I do not think his can handle him at home and he remains at a very high risk for further falls. In the past falls have led to fractures and prolonged rehabilitations. Therefore, I think I would have him have more physical therapy before there is any thought to discharge to home. He should be discharged on his routine medications and diet. He will be dialyzed at [facility] in [place] on Wednesdays and Fridays. internal control manager should alert them if he is discharged today. If he remains in the hospital, we will plan on hemodialysis here tomorrow. Admission and Anticipated Discharge Date Admission Date: January 10, 2020 Subjective Mr. Poon says that he is feeling relatively well this morning. He says that he ate most of his breakfast and is already had physical therapy this morning. Apparently he walked around the hallway. He said that he did have some difficulty getting up from a chair but was able to walk on his own with someone nearby. He admits that he is still somewhat weak. He denies being short of breath. He has no chest pain. He has no new gastrointestinal symptoms or problems. He has had no nausea or vomiting although he does admit that his appetite is not particularly good. He was dialyzed yesterday. His treatment was uncomplicated. He is looking forward to discharge today. Physical Exam Physical Exam: On physical examination, Mr. Poon appears relatively well but obviously chronically ill. He seems to be in better spirits than he had been. His blood pressure today is 130/70 seated with a pulse of 79 and regular. Respiratory rate is 20 his pulse ox 95% on room air. He is afebrile (36.7). His skin shows normal skin turgor. There is no rash or infiltrative skin disease. He has a few scattered ecchymoses. He has scars from prior surgical procedures including a left antecubital scar from the creation of his AV fistula which is dilated in the left upper arm. He has a midsternal scar from previous cardiac surgery and he has a scar beneath the distal right clavicle from the placement of his pacemaker. There is no palpable lymphadenopathy. His head is normal. Eyes are grossly normal. The ocular fundi were not examined. Ears, nose, mouth and throat are unremarkable. His oral mucous membranes are moist. His neck is supple. I see no jugular venous distention. He has no carotid bruit. His chest is clear to auscultation. He has no wheezes, rales or rhonchi. Cardiac exam shows a regular rhythm. S1 and S2 seem normal. He has a systolic ejection murmur at the base radiating toward the neck. His abdomen is a bit obese but nontender. There is no organomegaly or mass. Bowel sounds are present. I hear no abdominal bruits. Extremities show the left upper arm AV fistula. He has no lower extremity edema at the current time. His neurologic exam shows somewhat of a global weakness. However, there are no lateralizing findings. He has no asterixis. Results & Data ([facility]) Vital Signs (Past 12 Hours) Vital Signs Temp Pulse Pulse Pulse Resp BP Pulse Ox 01/15/20 08:31 95 01/15/20 07:28 36.7 C 79 20 130/70 96 01/15/20 04:34 36.5 C 64 16 129/72 95 01/15/20 00:40 83 01/15/20 00:37 36.6 C 72 18 138/71 95 Laboratory Results Laboratory Results - last 24 hr 01/15/20 05:29 Sodium 137 Potassium 4.5 Chloride 104 Carbon Dioxide 31 Anion Gap 2.0 L BUN 22 H Creatinine 3.52 H D Est Cr Clr Drug Dosing 17.1 Est GFR ( Amer) 17.3 Est GFR (Non-Af Amer) 14.9 BUN/Creatinine Ratio 6.3 L Glucose 83 Calcium 8.0 L PG Care Time/CCT Total # of Minutes Spent Total Time Spent with Patient: Total time spent is greater than 50% in coordination of care (as documented) at patient's floor/unit and/or counseling patient: 30 min. Coding Level of Care Code 61700 Subseq Hosp Care Lvl 3 Diagnoses ESRD on dialysis N18.6; Z99.2
--- NOTE | 2020-01-15 13:27 | Discharge Summary ---
Date of Service January 15, 2020 Admission HPI Per Admitting Provider This is an 84yo M with a PMH of chronic systolic heart failure secondary ischemic cardiomyopathy (EF 30 to 35%, TTE 2018), CAD s/p CABG, symptomatic bradycardia status post PPM, history bioprosthetic AVR, hypertension, ESRD on HD, chronic anemia (baseline hemoglobin of 10), BPH as per records, history of bullous pemphigoid as per records, chronic thrombocytopenia, ambulatory dysfunction and other medical problems as below who presents from [facility] with worsening shortness of breath. This is patient's third admission in the past 2 months, starting with closed fracture of symphysis pubis 2/2 fall back in November and most recent admission last week for narcotic induced constipation and asymptomatic troponin elevation in the setting of ESRD. Patient returns today having been sent from [facility] due to worsening shortness of breath at rest. Patient denies any chest pain, palpitations or weight gain but does endorse increased shortness of breath, especially with any type of movement or speech. Did have dialysis yesterday. Does not make urine. Denies any fever, chills, infectious contacts. No nausea, vomiting, abdominal pain or constipation. Is having normal bowel movements. Per son at bedside, patient has been more stressed than normal due to multiple hospitalizations, placement in facility and not being able to have family support due to COVID. Has not been at home in 7 weeks, where he lived prior to November admission for pelvic fracture. Admission Exam Per Admitting Provider General Appearance: WD/WN, vitals as above, appears chronically ill, sitting up in bed, conversational dyspnea Head: normocephalic, atraumatic Eyes: normal inspection, PERRL, conjunctivae normal, anicteric sclerae ENT: external ear and nose normal, oropharynx normal Neck: trachea midline, no thyromegaly normal visual inspection Respiratory: normal respiratory effort, bibasilar rales, no wheeze or rhonchi. Normal insp/exp effort, no accessory muscle use Cardiovascular: regular rate, rhythm, systolic murmur, normal peripheral pulses, trace pedal edema. Vessels: no JVD or carotid bruit Chest: normal inspection of chest Abdomen/GI: normal bowel sounds, soft, nontender, no hepatosplenomegaly Extremities/Musculoskeletal: no cyanosis or clubbing, extremities motor strength 5/5. + LUE dialysis fistula with palpable thrill Neurologic: PERRL, EOMI, accommodation nl, no face palsy, no dysarthria, CN's II-XI intact bilaterally and moves all extremities Psychiatric: A+Ox3, euthymic affect Skin: no rashes, normal color, warm/dry Principal Diagnosis Acute decompensated heart failure: Troponin level elevated: ASCVD (arteriosclerotic cardiovascular disease): ESRD on dialysis: Non-sustained ventricular tachycardia: 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: Discharge Exam General- No acute distress Head- atraumatic Eyes- PERRL, EOMI, ENT- oropharynx clear Neck- supple, no JVD Lungs- No wheezing, No crackles Heart- regular rhythm; +murmur Abdomen- normal bowel sounds, soft, nontender Extremities- no calf tenderness, +edema Neuro- alert, oriented x 3; PERRL, EOMI; no facial palsy; no dysarthria Skin- warm & dry Discharge Data Allergies Allergy/AdvReac Type Severity Reaction Status Date / Time No Known Drug Allergies Allergy Unknown . Verified 01/10/20 11:01 Consultations 01/10/20 13:12 ED Decision to Admit Stat 01/10/20 13:57 Consult Nephrology Routine 01/10/20 14:00 Consult Case Management - Discharge Planning Routine 01/12/20 06:54 Consult Cardiology Routine Ordered Studies XR chest 1V portable CLINICAL HISTORY: Dyspnea dyspnea COMPARISON STUDY: 01/03/2020 FINDINGS: Moderate increase in cardiac size. Increased prominence of pulmonary vasculature. Bipolar cardiac pacer in good position. IMPRESSION: Congestive heart failure ACT 112: Negative or not required by law. The above report was generated using voice recognition software. It may contain grammatical, syntax or spelling errors. Electronically signed by: Romaine Fine M.D. 01/10/2020 11:41 AM Dictated: 01/10/20 1141 Transcribed: 01/10/20 1141 Hospital Course (1) Acute decompensated heart failure: History of chronic left ventricular systolic heart failure with LVEF of 24% per recent echo. Present on admission with worsening SOB CXR showed CHF on admission No FREDY or ARB due to renal failure and relatively low BP's. Has not been receiving evidence-based beta blockers because of relatively low BP's. Cardio on board Recent echo showed LVEF of 20-25% earlier this month and global hypokinesis and distal anterior wall akinesis Fluid management with hemodialysis. Continue oxygen supplement Clinically improved (2) Troponin level elevated: Serum troponins 0.624, 0.616, 0.547. Chronically elevated troponins due to CKD. Denies any chest pain Cardio on board EKG showed no ischemic changes Doubt acute coronary syndrome. (3) ASCVD (arteriosclerotic cardiovascular disease): No anginal symptoms. Not on beta charan due to relatively low BP's. Continue aspirin and statin. (4) ESRD on dialysis: Followed by Dr. Jj for CKD V on hemodialysis. Had HD done today Management per Nephrology. (5) Non-sustained ventricular tachycardia: 19 beat run of nonsustained VT noted on surveillance system monitor few days ago Had 3 beat nonsustained VT today Asymptomatic Continue cardiac monitoring. 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 EGD considered, but increased risk to cardiac issues. UGI recommended, but patient declines; reconsider if symptoms recur. (8) DVT prophylaxis: SQ heparin. Ambulate. (9) Discharge planning issues: Plan to return to [facility] vs discharge to home Nephrology follow-up with Dr. Jj. Cardiology follow-up with Dr. Wheat. 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: Condition on Discharge: Good Activity: Resume your previous activity Non-emergency contact: Primary Care Provider, Poly Operator and Birthing Nurse Call non-emergency contact if: you have any medication questions [facility] - Diet: Dialysis Renal Addtl Attending Provider Instructions: Follow up with your primary care provider at [facility] Continue physical and occupational therapy Fall precaution Continue dialysis on Sunday, Sunday and Sunday Next Hemodialysis schedules for tomorrow (Sunday ) Your provider at [facility] will follow the result of COVID 19 (Pending) Pending Studies at Discharge: Yes Studies:: COVID 19 pending Stand-Alone Forms: My [facility] Skilled Items Patient informed of condition?: Yes DNR: Yes Discharge Level of Care: Skilled Communicable Disease: No Discharge Prognosis: Stable Lines: None Urinary Catheter: No Medications and DC Order Prescriptions: Continued oxycodone-acetaminophen 5-325 mg tablet 1 tab PO BID Qty: 60 RF: 0 nitroglycerin [Nitrostat] 0.4 mg Tablet, Sublingual 0.4 mg sublingual UD PRN (Reason: Chest Pain) RF: 0 atorvastatin 40 mg tablet 40 mg PO DAILY@2029 RF: 0 aspirin [Aspir-81] 81 mg Tablet,Delayed Release (Dr/Ec) 81 mg PO DAILY@829 RF: 0 tamsulosin [Flomax] 0.4 mg Capsule 0.4 mg PO DAILY@2029 RF: 0 oxycodone 5 mg Tablet 5 mg PO Q8H PRN (Reason: Pain) RF: 0 calcium acetate 667 mg Tablet 1,334 mg PO TIDM RF: 0 docusate sodium 100 mg Capsule 100 mg PO BID Qty: 30 RF: 0 sennosides-docusate sodium [Senokot-S] 8.6-50 mg Tablet 1 tab PO BID Qty: 30 RF: 0 mirtazapine 7.5 mg Tablet 7.5 mg PO DAILY@2029 RF: 0 polyethylene glycol 3350 [Miralax] 17 gram Powder In Packet 17 g PO BID Qty: 30 RF: 0 Discharge Orders: Discharge Order (Routine); Ordered 01/15/20 Ordered By: Halley Altamirano Admission Data Admit Date/Time: 01/10/20 13:58 Attending Provider: Halley Altamirano Admit Provider: Corina Ayers Primary Care Provider: Jose Francisco Cash Other Providers: Corina Ayers ; Delmis Honeycutt ; Pankaj Garcia ; Prashanth Jj ; Sangita Croft ; Alvarez Pham ; ShaileshRockbridge ; Bjorn Wheat ; Khalif Lomeli
== END 2020-01-15 14:28 | DRG 291 ==
LOC: ED 10:15 → 2W 13:58 → SUATTDRO 13:58 → 2W 15:39 → 2N 01-12 09:10

== ENCOUNTER 2021-03-09 12:08 | Inpatient (IN) ==
--- NOTE | 2021-03-09 13:08 | XRay Report ---
SINGLE VIEW CHEST CLINICAL HISTORY: Atypical chest pain. FINDINGS: An AP, portable, upright chest radiograph is compared to study dated 01/10/2020. A 2-lead ca rdiac pacemaker is unchanged in position. The patient is status post midline sternotomy. The heart is enlarged noting atherosclerotic calcification of the thoracic aorta. There is prominence of the pulm onary vasculature. Atelectasis is noted at the lung bases. No airspace consolidation or large pleural effusion is identified. No pneumothorax is seen. The skeletal structures are osteopenic. There is ch ronic posttraumatic deformity of the left proximal humerus. Advanced arthritic changes seen in the le ft shoulder. IMPRESSION: 1. Cardiomegaly and cardiac pacemaker with prominence of the pulmonary vascular. Correlate clinically for evidence of mild congestive failure. 2. No airspace consolidation or large pleural effusion is identified. ACT 112: Negative or not required by law. Electronically signed by: Star Aleman M.D. 03/09/2021 1:06 PM
[2021-03-09 14:01] LABS: Basophils # (auto) 0.01 K/uL (0-0.2); Basophils % (auto) 0.1 %; Eosinophils # (auto) 0.23 K/uL (0-0.5); Hematocrit (blood only) 33.3 % (42-52); Hemoglobin 10.3 g/dL (14.0-18.0); Immature Granulocytes # (auto) 0.01 K/uL (0.00-0.02); Immature Granulocytes % (auto) 0.1 %; Lymphocytes # (auto) 2.01 K/uL (1.2-3.4); Lymphocytes % (auto) 26.3 %; Mean Corpuscular Hemoglobin 24.6 pg (25-34); Mean Corpuscular Hgb Conc 30.9 g/dL (32-36); Mean Corpuscular Volume 79.5 fL (80-100); Mean Platelet Volume 12.3 fL (7.4-10.4); Monocytes # (auto) 0.77 K/uL (0.11-0.59); Monocytes % (auto) 10.1 %; Neutrophils % (auto) 60.4 %; Platelet Count 176 K/uL (130-400); RDW Coefficient of Variation 14.9 % (11.5-14.5); RDW Standard Deviation 42.3 fL (36.4-46.3); Red Blood Count 4.19 M/uL (4.7-6.1); White Blood Count 7.63 K/uL (4.8-10.8)
[2021-03-09 14:14] LABS: Partial Thromboplastin Ratio 1.4
[2021-03-09 14:21] LABS: Alanine Aminotransferase 14 U/L (12-78); Albumin Level 3.4 gm/dl (3.4-5.0); Aspartate Aminotransferase 16 U/L (15-37); BUN Creatinine Ratio 5.8 (10-20); Bilirubin Direct 0.1 mg/dl (0-0.2); Blood Urea Nitrogen 18 mg/dl (7-18); Calcium 8.5 mg/dl (8.5-10.1); Carbon Dioxide 28 mmol/L (21-32); Chloride 104 mmol/L (98-107); Est GFR (African American) 19.8 ml/min; Est GFR (Non-African American) 17.1 ml/min; Glucose 82 mg/dl (70-99); Lipase 95 U/L (73-393); Potassium 3.9 mmol/L (3.5-5.1); Sodium 140 mmol/L (136-145)
[2021-03-09 14:39] LABS: Albumin Globulin Ratio 0.9 (0.9-2); Alkaline Phosphatase 100 U/L (45-117); Bilirubin,Total 0.5 mg/dl (0.2-1); Globulin 3.6 gm/dl (2.5-4.0); Phosphorus 1.9 mg/dl (2.5-4.9); Troponin I 0.683 ng/ml (0-0.045)
[2021-03-09] MEDS ORDERED: ASPIRIN CHEW 324 MG PO STA (17:59)
--- NOTE | 2021-03-09 18:18 | History & Physical Report ---
Date of Service March 09, 2021 Assessment & Plan (1) Chest pain: (2) Elevated troponin: (3) Ischemic cardiomyopathy: Plan: Patient is 85-year-old male with PMH HTN, HLD, valvular heart disease s/p porcine AVR 2007, CAD s/p CABG x4 in 2007, ischemic cardiomyopathy, EF 20-25% in 2020, intolerant to medications, symptomatic bradycardia s/p pacemaker, ESRD on HD, chronic anemia, BPH, chronic thrombocytopenia presented to ER with complaint of chest pressure and SOB today while at dialysis. He states oxygen was applied and IVF given and pt took 1 SL nitro with relief of chest discomfort and SOB. In ER pt afebrile, vitals stable. Initial troponin: 0.6, repeat 3 hours later was 1.8. EKG paced rhythm. Pt without chest pain/pressure or SOB while in ER. R/O ACS. Risk factors: HTN, hyperlipidemia, CAD -Monitor Vitals -Repeat EKG in am -Will trend troponin -Echo -lipid panel in am, continue statin -aspirin -Nitro prn CP and repeat EKG for CP -NPO midnight -Will start Heparin IV -Cardiology consult (4) ESRD on dialysis: Plan: Follows with [facility] [place] [facility]. MWF schedule Appears euvolemic at this time -Continue renal meds -Nephrology consult for assistance in HD (5) BPH (benign prostatic hyperplasia): Plan: -Continue tamsulosin DVT Prophylaxis -On Heparin IV DNR/DNI as per discussion with pt Follows with Dr House for routine care Pt was seen and care coordinated with Dr Altamirano. See addendum History of Present Illness Chief Complaint: Chest pain Primary Care Provider: Suly House, Patient is 85-year-old male with PMH HTN, HLD, valvular heart disease s/p porcine AVR 2007, CAD s/p CABG x4 in 2007, ischemic cardiomyopathy, EF 20-25% in 2020, intolerant to medications, symptomatic bradycardia s/p pacemaker, ESRD on HD, chronic anemia, BPH, chronic thrombocytopenia presented to ER with complaint of chest pain today. Patient reports was at dialysis today when he developed chest pain at around 11am. It is reported that they cut his dialysis ap proximately 30 minutes short today. He states oxygen was applied and IVF given and pt took 1 SL nitro with relief of chest discomfort and SOB. He states he took 1 SL nitro earlier today for chest pressure with relief. Denies associated dizziness, palpitations, dizziness or diaphoresis. Patient reports has had episodes of chest pressure with SOB while riding in van going to dialysis and he takes nitro with relief. He also reports will take nitro for chest pressure while at dialysis. Today is first time dialysis was aware of pt having chest discomfort. He does not move or walk around much, is able to ambulate short distance in house with walker without CP or SOB. Denies fever/chills, diaphoresis, N/V/D/C, [place], dizziness, syncope, vision changes, neck pain, orthopnea, palpitations, cough, sore throat, choking, otalgia, rhinorrhea, abdominal pain, paresthesias, weakness, extremity weakness, extremity edema, rashes, urinary symptoms. In ER pt afebrile, vitals stable. Initial troponin: 0.6, repeat 3 hours later was 1.8. EKG paced rhythm. Pt without chest pain/pressure or SOB while in ER. Allergies Allergy/AdvReac Type Severity Reaction Status Date / Time No Known Drug Allergies Allergy Unknown . Verified 03/09/21 13:23 Home Medications Medication Instructions Recorded Confirmed Type atorvastatin 40 mg tablet 40 mg PO DAILY@202911/19/19 03/09/21 History nitroglycerin 0.4 mg sublingual 0.4 mg SUBLINGUAL UD PRN 11/19/19 03/09/21 History tablet (Nitrostat) calcium acetate 667 mg tablet 667 mg PO TIDM 01/01/20 03/09/21 History tamsulosin 0.4 mg capsule (Flomax) 0.4 mg PO DAILY@202901/01/20 03/09/21 History polyethylene glycol 3350 17 gram 17 g PO BID PRN ea 12/17/20 03/09/21 History oral powder packet (Miralax) oxycodone 5 mg tablet 5 mg PO Q8H PRN #60 tab 01/12/21 03/09/21 Rx acetaminophen 500 mg tablet 1,000 mg PO Q6H PRN 03/09/21 03/09/21 History (Tylenol Extra Strength) vit B complx, C-iron 8 mg-folic 1 tab PO PM 03/09/21 03/09/21 History acid 800 mcg-D3 1,000 unit-zinc tablet (ProRenal) Past Med/Surg History Medical History (Updated 03/10/21 @ 02:09 by Mark Reeder MD) Anemia 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 ASCVD (arteriosclerotic cardiovascular disease) BPH (benign prostatic hyperplasia) Bullous pemphigoid Dialysis patient Dyslipidemia ESRD on dialysis HTN (hypertension) Pacemaker Pacemaker Renal calculi Surgical History Aortic valve replaced H/O inguinal hernia repair History of cataract surgery History of tonsillectomy Hx of CABG Family History Other Coronary heart disease Hypertension Stroke Social History Smoking Status: Never smoker Second Hand Exposure: No; Do You Dip or Chew Tobacco: No; Tobacco Cessation Education Requested by Patient: No Hx Alcohol Use: No Hx Substance Use: No Preferred Language: Panamanian Communication Ability: Effective 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 Beliefs That Will Affect Care: None marital status: Current Living Situation: Spouse Current Living Situation Comment: apartment current occupational status: retired Feels Safe at Home: Yes Safety Concerns: Feels Safe At This Time Assistive Devices: Glasses, Hearing Aid - Bilateral and Walker Review of Systems Review of Systems: All systems reviewed & are unremarkable except as noted in HPI & below Physical Exam Physical Exam: General: no distress, WDWN Head: normocephalic, atraumatic Eyes:conjunctiva non-injected, anicteric ENT: normal inspection external ears, nose, mucous membranes moist Neck: supple, trachea midline Lungs: clear, no respiratory distress, no wheezing/rhonchi/rales CV: RRR, + murmur, no pretibial edema Abd: normal BS, soft, non-tender Ext: no cyanosis, no calf tenderness; LUE with fistula with palpable thrill Neuro: A&O x 3, no focal deficits noted, normal affect Skin: warm, dry Results & Data Results & Data ([facility]) Vital Signs (Past 12 Hours) Vital Signs Temp Pulse Resp BP Pulse Ox 03/09/21 14:15 74 16 118/53 L 96 03/09/21 14:00 75 21 128/45 L 97 03/09/21 13:45 77 24 122/60 96 03/09/21 13:31 74 29 H 110/61 97 03/09/21 13:23 36.8 C 75 20 101/50 L 93 03/09/21 13:15 83 19 128/58 L 98 03/09/21 13:00 74 17 108/53 L 97 03/09/21 12:45 77 15 108/55 L 98 03/09/21 12:30 70 18 103/52 L 98 Laboratory Results Short CBC 03/09/21 Range/Units 13:47 WBC 7.63 (4.8-10.8) K/uL Hgb 10.3 L (14.0-18.0) g/dL Hct 33.3 L (42-52) % Plt Count 176 (130-400) K/uL BMP 03/09/21 13:47 Sodium 140 Potassium 3.9 Chloride 104 Carbon Dioxide 28 BUN 18 Creatinine 3.13 H Glucose 82 Calcium 8.5 Cardiac Enzymes 03/09/21 03/09/21 Range/Units 13:47 16:42 Troponin I 0.683 H* 1.810 H* (0-0.045) ng/ml Liver Function 03/09/21 Range/Units 13:47 Total Bilirubin 0.5 (0.2-1) mg/dl Direct Bilirubin 0.1 (0-0.2) mg/dl AST 16 (15-37) U/L ALT 14 (12-78) U/L Alkaline Phosphatase 100 (45-117) U/L Albumin 3.4 (3.4-5.0) gm/dl Diagnostic Findings Chest X-Ray 03/09/21 12:38 SINGLE VIEW CHEST CLINICAL HISTORY: Atypical chest pain. FINDINGS: An AP, portable, upright chest radiograph is compared to study dated 01/10/2020. A 2-lead cardiac pacemaker is unchanged in position. The patient is status post midline sternotomy. The heart is enlarged noting atherosclerotic calcification of the thoracic aorta. There is prominence of the pulmonary vasculature. Atelectasis is noted at the lung bases. No airspace consolidation or large pleural effusion is identified. No pneumothorax is seen. The skeletal structures are osteopenic. There is chronic posttraumatic deformity of the left proximal humerus. Advanced arthritic changes seen in the left shoulder. IMPRESSION: 1. Cardiomegaly and cardiac pacemaker with prominence of the pulmonary vascular. Correlate clinically for evidence of mild congestive failure. 2. No airspace consolidation or large pleural effusion is identified. ACT 112: Negative or not required by law. Electronically signed by: Star Aleman M.D. 03/09/2021 1:06 PM ECG Findings: + paced rhythm Code Status & VTE Plan VTE Prophylaxis Plan VTE Prophylaxis will be ordered: Yes Supervising Physician Co-Signing Physician Notes Pt was seen and examined. Agreed with Jovita SALGUERO exam, assessment and plan. 85-year-old male with PMH HTN, HLD, valvular heart disease s/p porcine AVR 2007, CAD s/p CABG x4 in 2007, ischemic cardiomyopathy, EF 20-25% in 2020, intolerant to medications, symptomatic bradycardia s/p pacemaker, ESRD on HD, chronic anemia, BPH, chronic thrombocytopenia presented to ER with complaint of chest pain today. Pt said that today during HD he developed chest like pressure. He said that HD had to stop 30minutes early. He was placed on oxygen was given and 1 SL nitro with relief of chest discomfort and SOB. He states he took 1 SL nitro earlier today for chest pressure with relief. He said that the chest pain that he had back in 2007 was more intense compare to this one. He said that by the time he came to the ER he was chest pain free. Currently denies any dizziness, palpitations, dizziness or diaphoresis. Troponin on admission 0.6 with repeat troponin 1.8. EKG with paced rhythm. IV heparin drip was started due to increase in the troponin. Will trend troponin and get a resting echo in am. cardiology consult. Will make NPO after midnight for possible cardiac cath in am. Discussed with patient that if he develops any chest pain to notify staff. Will consult nephrology for ESRD. Will monitor closely in telemetry. MD Evelia
[2021-03-09] MEDS ORDERED: Heparin IV Adult Wt-Based Standard *NO* Bolus Protocol IV ONE (19:14)
[2021-03-09] MEDS ORDERED: POLYETHYLENE (MIRALAX) 17 GM PACK PO PRN (19:54)
[2021-03-09] MEDS ORDERED: NITROGLYCERIN SL 0.4 MG/TAB TAB SL PRN (19:54)
[2021-03-09] MEDS ORDERED: ACETAMINOPHEN 325 MG TAB PO PRN (19:54)
[2021-03-09] MEDS: HEPARIN SODIUM/DEXTROSE 25,000 UNITS/500 ML BAG IV SCH (20:13)
[2021-03-09 21:00] LABS: Partial Thromboplastin Ratio 1.1; Partial Thromboplastin Time 29.6 Seconds (21.0-31.0)
--- NOTE | 2021-03-09 21:37 | Emergency Department Note ---
Impression & Plan Chest pain, Elevated troponin, ESRD (end stage renal disease) on dialysis ED Provider Note NAME: NICK NELSON AGE: 85 SEX: M ARRIVES VIA: Ambulance INFORMANT: Patient, ED PROVIDER(S): Mark Reeder MD CHIEF COMPLAINT: Chest PLAN: Disposition: Admit MEDICAL DECISION MAKING: The patient is a pleasant 85-year-old gentleman with a past medical history of CHF, ischemic cardiomyopathy, end-stage renal disease on dialysis, aortic valve replacement, history of CABG who presents to the emergency department from his dialysis center after complaining of chest pain during dialysis where he reports he completed his dialysis approximately 30 minutes early due to this. He reports his pain resolved shortly after it started. He did receive aspirin by EMS. He denies any recent pattern of exertional chest pain reports he will walk around his home without any symptoms. However he does add that over the past couple weeks when riding in the van to dialysis he will experience chest pain when there are bumps in the road and admits to taking his nitroglycerin during this time but never telling anyone about it. He denies any cough, congestion, fevers, chills, GI symptoms. On arrival patient is chronically ill-appearing but no acute distress, afebrile stable vital signs. EKG is paced without overt acute ischemia. Chest x-ray without overt acute cardiopulmonary process. WBC and platelets within normal limits. H/H similar to prior. Chemistry without metabolic acidosis. Creatinine 3.1 in the setting of the patient's end- stage renal disease. Phosphorus 1.9 electrolytes otherwise unremarkable. LFTs are unremarkable. Initial troponin 0.6 similar to prior chronic elevations. Delta 2-hour troponin however did increase to 1.8. Lipase within normal limits. COVID-19 PCR was negative. Upon reevaluation the patient continued to deny any symptoms. However, given the patient's rising troponin in the setting of his chest pain he was in agreement with plan for admission. Case was discussed with Vi Fay, [facility] PAC, with Dr. Sarabia, [facility] hospitalist who will evaluate the patient for admission. Triage Nursing notes reviewed and agree them. Prior medical records reviewed Vital Signs: reviewed and remarkable for no significant abnormalities Differential diagnosis: Cardiac ischemia, aortic dissection, pulmonary embolism, pneumothorax, pneumonia, pericarditis, myocarditis, esophageal rupture, GERD, cholecystitis, pancreatitis, musculoskeletal, as well as other pathologies. ER treatment provided: See below. Diagnostics interpreted by me: ECG: Atrial sensed ventricular paced rhythm, 82 bpm, no ectopy, no overt acute ischemia. Cardiac Monitoring: An order for continuous cardiac monitoring was placed and demonstrated atrial sensed ventricular paced rhythm, 82 bpm, no ectopy. Laboratory studies: See below Imaging studies: See below Consultation(s): Case was discussed with Vi Fay, [facility] PAC, with Dr. Sarabia, [facility] hospitalist who will evaluate the patient for admission. HPI: The patient is a pleasant 85-year-old gentleman with a past medical history of CHF, ischemic cardiomyopathy, end-stage renal disease on dialysis, aortic valve replacement, history of CABG who presents to the emergency department from his dialysis center after complaining of chest pain during dialysis where he reports he completed his dialysis approximately 30 minutes early due to this. He reports his pain resolved shortly after it started. He did receive aspirin by EMS. He denies any recent pattern of exertional chest pain reports he will walk around his home without any symptoms. However he does add that over the past couple weeks when riding in the van to dialysis he will experience chest pain when there are bumps in the road and admits to taking his nitroglycerin during this time but never telling anyone about it. He denies any cough, congestion, fevers, chills, GI symptoms. ROS: See above HPI for pertinent positives & negatives. A total of 10 systems reviewed and were otherwise negative. PAST MEDICAL HISTORY:See Below PAST SURGICAL HISTORY:See Below FAMILY HISTORY:See Below SOCIAL HISTORY:See Below HOME MEDICATIONS:See Below ALLERGIES:See Below VITALS:See Below PHYSICAL EXAMINATION: GENERAL: Awake, alert, chronically ill-appearing, in no distress HENT: Normocephalic, atraumatic. Oropharynx unremarkable. EYES: Normal conjunctiva. Sclera non-icteric. NECK: Supple. No nuchal rigidity. FROM. No JVD. RESPIRATORY: Diminished at the bases otherwise, clear to auscultation. CARDIAC: Regular rate, normal rhythm. Extremities warm and well perfused. Pulses equal. ABDOMEN: Soft, non-distended. No tenderness to palpation. No rebound or guarding. No masses. RECTAL: Deferred. MUSCULOSKELETAL: Chest examination reveals no tenderness. The back is symmetr ical on inspection without obvious abnormality. There is no CVA tenderness to palpation. No joint edema. LOWER EXTREMITIES: Calves are equal size bilaterally and non-tender. No edema. No discoloration. NEURO: Normal sensorium. No sensory or motor deficits noted. SKIN: No rash or jaundice noted. ED COURSE: Critical Care: I have personally spent greater than 35 minutes of critical care time in the direct management of this patient. This includes bedside care, interpretation of diagnostic studies, and testing, discussion with consultants, patient, and family members, and other required patient management activities. This 35 minutes is in excess of all separately billable procedures. 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 ASCVD (arteriosclerotic cardiovascular disease) BPH (benign prostatic hyperplasia) Bullous pemphigoid Dialysis patient Dyslipidemia ESRD on dialysis HTN (hypertension) Pacemaker Pacemaker Renal calculi Surgical History Aortic valve replaced H/O inguinal hernia repair History of cataract surgery History of tonsillectomy Hx of CABG Family History Other Coronary heart disease Hypertension Stroke Social History Smoking Status: Never smoker Second Hand Exposure: No; Do You Dip or Chew Tobacco: No; Tobacco Cessation Education Requested by Patient: No Hx Alcohol Use: No Hx Substance Use: No Preferred Language: Cymraes Communication Ability: Effective Gas Charger Required: No Beliefs That Will Affect Care: None marital status: Current Living Situation: Spouse Current Living Situation Comment: apartment current occupational status: retired Feels Safe at Home: Yes Safety Concerns: Feels Safe At This Time Assistive Devices: Glasses, Hearing Aid - Bilateral and Walker Allergies Allergies Allergy/AdvReac Type Severity Reaction Status Date / Time No Known Drug Allergies Allergy Unknown . Verified 03/09/21 13:23 Home Meds Home Medications Medication Instructions Recorded Confirmed atorvastatin 40 mg tablet 40 mg PO DAILY@2030 11/19/19 03/09/21 nitroglycerin 0.4 mg sublingual 0.4 mg SUBLINGUAL UD PRN 05/06/20 08/25/21 tablet (Nitrostat) calcium acetate 667 mg tablet 667 mg PO TIDM 01/01/20 03/09/21 tamsulosin 0.4 mg capsule (Flomax) 0.4 mg PO DAILY@2030 01/01/20 03/09/21 polyethylene glycol 3350 17 gram 17 g PO BID PRN ea 12/17/20 03/09/21 oral powder packet (Miralax) acetaminophen 500 mg tablet 1,000 mg PO Q6H PRN 03/09/21 03/09/21 (Tylenol Extra Strength) vit B complx, C-iron 8 mg-folic 1 tab PO PM 03/09/21 03/09/21 acid 800 mcg-D3 1,000 unit-zinc tablet (ProRenal) Previous Rx's Medication Instructions Recorded oxycodone 5 mg tablet 5 mg PO Q8H PRN #60 tab 01/12/21 Results & Data (ED) Vital Signs Vital Signs - 24 hr 03/09/21 12:30 03/09/21 12:45 03/09/21 13:00 Temperature Temperature Source Pulse Rate 70 77 74 Pulse Rate from SpO2 Sensor 82 83 86 Pulse Rhythm Respiratory Rate 18 15 17 Respiratory Depth Blood Pressure 103/52 L 108/55 L 108/53 L Blood Pressure Mean 69 72 71 Blood Pressure Position Pulse Oximetry 98 98 97 Oxygen Delivery Method Sepsis Recent Fever Within 48 Hours Sepsis New/Unexplained Change in Mental Status Sepsis Action Taken by Nursing 03/09/21 13:15 03/09/21 13:23 03/09/21 13:31 Temperature 36.8 C Temperature Source Oral Pulse Rate 83 75 74 Pulse Rate from SpO2 Sensor 83 72 Pulse Rhythm Regular Respiratory Rate 19 20 29 H Respiratory Depth Normal Blood Pressure 128/58 L 101/50 L 110/61 Blood Pressure Mean 81 67 77 Blood Pressure Position Lying Pulse Oximetry 98 93 97 Oxygen Delivery Method Room Air Sepsis Recent Fever Within 48 Hours No Sepsis New/Unexplained Change in Mental Status No Sepsis Action Taken by Nursing No Action Required 03/09/21 13:45 03/09/21 14:00 03/09/21 14:15 Temperature Temperature Source Pulse Rate 77 75 74 Pulse Rate from SpO2 Sensor 75 75 73 Pulse Rhythm Respiratory Rate 24 21 16 Respiratory Depth Blood Pressure 122/60 128/45 L 118/53 L Blood Pressure Mean 80 72 74 Blood Pressure Position Pulse Oximetry 96 97 96 Oxygen Delivery Method Sepsis Recent Fever Within 48 Hours Sepsis New/Unexplained Change in Mental Status Sepsis Action Taken by Nursing 03/09/21 14:30 03/09/21 14:45 03/09/21 15:01 Temperature Temperature Source Pulse Rate 76 72 69 Pulse Rate from SpO2 Sensor 74 69 Pulse Rhythm Respiratory Rate 24 20 20 Respiratory Depth Blood Pressure 127/71 143/64 H 131/67 Blood Pressure Mean 89 90 88 Blood Pressure Position Pulse Oximetry 97 97 Oxygen Delivery Method Sepsis Recent Fever Within 48 Hours Sepsis New/Unexplained Change in Mental Status Sepsis Action Taken by Nursing 03/09/21 15:15 03/09/21 15:30 03/09/21 15:45 Temperature Temperature Source Pulse Rate 67 70 68 Pulse Rate from SpO2 Sensor 73 70 69 Pulse Rhythm Respiratory Rate 20 21 20 Respiratory Depth Blood Pressure 126/68 134/62 117/74 Blood Pressure Mean 87 86 88 Blood Pressure Position Pulse Oximetry 96 97 98 Oxygen Delivery Method Sepsis Recent Fever Within 48 Hours Sepsis New/Unexplained Change in Mental Status Sepsis Action Taken by Nursing 03/09/21 16:01 03/09/21 16:16 03/09/21 16:30 Temperature Temperature Source Pulse Rate 69 76 73 Pulse Rate from SpO2 Sensor 72 70 70 Pulse Rhythm Respiratory Rate 23 20 21 Respiratory Depth Blood Pressure 104/57 L 132/54 L 141/63 H Blood Pressure Mean 72 80 89 Blood Pressure Position Pulse Oximetry 96 95 95 Oxygen Delivery Method Sepsis Recent Fever Within 48 Hours Sepsis New/Unexplained Change in Mental Status Sepsis Action Taken by Nursing 03/09/21 17:00 03/09/21 17:15 03/09/21 17:26 Temperature Temperature Source Pulse Rate 73 73 79 Pulse Rate from SpO2 Sensor 78 73 79 Pulse Rhythm Respiratory Rate 20 19 23 Respiratory Depth Blood Pressure 115/52 L 132/65 119/53 L Blood Pressure Mean 73 87 75 Blood Pressure Position Pulse Oximetry 79 L 98 98 Oxygen Delivery Method Sepsis Recent Fever Within 48 Hours Sepsis New/Unexplained Change in Mental Status Sepsis Action Taken by Nursing 03/09/21 17:30 03/09/21 17:45 03/09/21 18:01 Temperature Temperature Source Pulse Rate 80 75 78 Pulse Rate from SpO2 Sensor 78 74 81 Pulse Rhythm Respiratory Rate 25 H 25 H 21 Respiratory Depth Blood Pressure 115/70 132/50 L 118/67 Blood Pressure Mean 85 77 84 Blood Pressure Position Pulse Oximetry 92 97 80 L Oxygen Delivery Method Sepsis Recent Fever Within 48 Hours Sepsis New/Unexplained Change in Mental Status Sepsis Action Taken by Nursing Laboratory Data Attestation: I reviewed the patient's lab results. Result diagrams: 03/09/21 13:47 03/09/21 13:47 Lab Results 03/09/21 03/09/21 03/09/21 Range/Units 13:47 13:47 13:47 WBC 7.63 (4.8-10.8) K/uL RBC 4.19 L (4.7-6.1) M/uL Hgb 10.3 L (14.0-18.0) g/dL Hct 33.3 L (42-52) % MCV 79.5 L (80-100) fL MCH 24.6 L (25-34) pg MCHC 30.9 L (32-36) g/dL RDW Std Deviation 42.3 (36.4-46.3) fL RDW Coeff of Gill 14.9 H (11.5-14.5) % Plt Count 176 (130-400) K/uL MPV 12.3 H (7.4-10.4) fL Immature Gran % (Auto) 0.1 % Neut % (Auto) 60.4 % Lymph % (Auto) 26.3 % Mcdonough % (Auto) 10.1 % Eos % (Auto) 3.0 % Baso % (Auto) 0.1 % Neut # (Auto) 4.60 (1.4-6.5) K/uL Lymph # (Auto) 2.01 (1.2-3.4) K/uL Mcdonough # (Auto) 0.77 H (0.11-0.59) K/uL Eos # (Auto) 0.23 (0-0.5) K/uL Baso # (Auto) 0.01 (0-0.2) K/uL Immature Gran # (Auto) 0.01 (0.00-0.02) K/uL APTT 36.0 H (21.0-31.0) Seconds PTT Ratio 1.4 Sodium 140 (136-145) mmol/L Potassium 3.9 (3.5-5.1) mmol/L Chloride 104 (98-107) mmol/L Carbon Dioxide 28 (21-32) mmol/L Anion Gap 8.0 (3-11) BUN 18 (7-18) mg/dl Creatinine 3.13 H (0.6-1.4) mg/dl Est Cr Clr Drug Dosing Not Reportable Est GFR ( Amer) 19.8 ml/min Est GFR (Non-Af Amer) 17.1 ml/min BUN/Creatinine Ratio 5.8 L (10-20) Glucose 82 (70-99) mg/dl Calcium 8.5 (8.5-10.1) mg/dl Phosphorus 1.9 L (2.5-4.9) mg/dl Magnesium 2.0 (1.8-2.4) mg/dl Total Bilirubin 0.5 (0.2-1) mg/dl Direct Bilirubin 0.1 (0-0.2) mg/dl AST 16 (15-37) U/L ALT 14 (12-78) U/L Alkaline Phosphatase 100 (45-117) U/L Troponin I 0.683 H* (0-0.045) ng/ml Total Protein 7.0 (6.4-8.2) gm/dl Albumin 3.4 (3.4-5.0) gm/dl Globulin 3.6 (2.5-4.0) gm/dl Albumin/Globulin Ratio 0.9 (0.9-2) Lipase 95 (73-393) U/L TSH 2.770 (0.300-4.500) uIu/ml COVID-19 Eval Order SARS-CoV-2 (PCR) (Negative) 03/09/21 03/09/21 03/09/21 Range/Units 14:40 14:40 16:42 WBC (4.8-10.8) K/uL RBC (4.7-6.1) M/uL Hgb (14.0-18.0) g/dL Hct (42-52) % MCV (80-100) fL MCH (25-34) pg MCHC (32-36) g/dL RDW Std Deviation (36.4-46.3) fL RDW Coeff of Gill (11.5-14.5) % Plt Count (130-400) K/uL MPV (7.4-10.4) fL Immature Gran % (Auto) % Neut % (Auto) % Lymph % (Auto) % Mcdonough % (Auto) % Eos % (Auto) % Baso % (Auto) % Neut # (Auto) (1.4-6.5) K/uL Lymph # (Auto) (1.2-3.4) K/uL Mcdonough # (Auto) (0.11-0.59) K/uL Eos # (Auto) (0-0.5) K/uL Baso # (Auto) (0-0.2) K/uL Immature Gran # (Auto) (0.00-0.02) K/uL APTT (21.0-31.0) Seconds PTT Ratio Sodium (136-145) mmol/L Potassium (3.5-5.1) mmol/L Chloride (98-107) mmol/L Carbon Dioxide (21-32) mmol/L Anion Gap (3-11) BUN (7-18) mg/dl Creatinine (0.6-1.4) mg/dl Est Cr Clr Drug Dosing Est GFR ( Amer) ml/min Est GFR (Non-Af Amer) ml/min BUN/Creatinine Ratio (10-20) Glucose (70-99) mg/dl Calcium (8.5-10.1) mg/dl Phosphorus (2.5-4.9) mg/dl Magnesium (1.8-2.4) mg/dl Total Bilirubin (0.2-1) mg/dl Direct Bilirubin (0-0.2) mg/dl AST (15-37) U/L ALT (12-78) U/L Alkaline Phosphatase (45-117) U/L Troponin I 1.810 H* (0-0.045) ng/ml Total Protein (6.4-8.2) gm/dl Albumin (3.4-5.0) gm/dl Globulin (2.5-4.0) gm/dl Albumin/Globulin Ratio (0.9-2) Lipase (73-393) U/L TSH (0.300-4.500) uIu/ml COVID-19 Eval Order Covid19 at [facility] SARS-CoV-2 (PCR) NEGATIVE (Negative) Administered Medications Atorvastatin Calcium (Atorvastatin 40 Mg Tab) 40 mg PO DAILY@2029 GENEVIEVE Stop: 04/08/21 20:29 Last Admin: 03/09/21 23:16 Dose: 40 mg Documented by: [id number] Heparin Sodium/Dextrose (Heparin Sodium/Dextrose) 25,000 units in 500 mls @ 28 mls/hr IV .[id number] [facility]; Protocol Stop: 04/08/21 19:29 Last Admin: 03/09/21 20:13 Dose: 1,400 units/hr, 28 mls/hr Documented by: [id number] Cosigned by: [id number] Miscellaneous (Order Awaiting Action [Pro Renal Capsule]) 1 ea N/A QS GENEVIEVE Stop: 04/09/21 00:00 Last Admin: 03/09/21 23:13 Dose: Not Given Documented by: [id number] Tamsulosin HCl (Tamsulosin Hcl 0.4 Mg Cap) 0.4 mg PO DAILY@2029 [facility] Stop: 04/08/21 20:29 Last Admin: 03/09/21 23:16 Dose: 0.4 mg Documented by: [id number] Discontinued Medications Aspirin (Aspirin Chew 324 Mg) 324 mg PO NOW [facility] Stop: 03/09/21 18:00 Last Admin: 03/09/21 18:06 Dose: Not Given Documented by: [id number] Heparin Sodium/Dextrose (Heparin Iv Adult Wt-Based Standard *No* Bolus Protocol) 1 ea IV ONE ONE; Protocol Stop: 03/09/21 19:15 Last Admin: 03/09/21 19:43 Dose: 1 ea Documented by: [id number] Imaging Data Radiologist's Impression: Chest X-Ray 03/09/21 12:38 SINGLE VIEW CHEST CLINICAL HISTORY: Atypical chest pain. FINDINGS: An AP, portable, upright chest radiograph is compared to study dated 01/10/2020. A 2-lead cardiac pacemaker is unchanged in position. The patient is status post midline sternotomy. The heart is enlarged noting atherosclerotic calcification of the thoracic aorta. There is prominence of the pulmonary vasculature. Atelectasis is noted at the lung bases. No airspace consolidation or large pleural effusion is identified. No pneumothorax is seen. The skeletal structures are osteopenic. There is chronic posttraumatic deformity of the left proximal humerus. Advanced arthritic changes seen in the left shoulder. IMPRESSION: 1. Cardiomegaly and cardiac pacemaker with prominence of the pulmonary vascular. Correlate clinically for evidence of mild congestive failure. 2. No airspace consolidation or large pleural effusion is identified. ACT 112: Negative or not required by law. Electronically signed by: Star Aleman M.D. 03/09/2021 1:06 PM Discharge Plan Visit Data Chief Complaint: Chest Pain ED Provider: Mark Reeder Discharge Problem: Chest pain, Elevated troponin, ESRD (end stage renal disease) on dialysis Patient Disposition: Admitted As Inpatient Discharge Instructions Interventions: ED Discharge Assessment Last Done: 03/09/21 19:41 Discharge Problem: Chest pain Qualifiers: Chest pain type: unspecified Qualified Code(s): R07.9 - Chest pain, unspecified
[2021-03-09] MEDS: TAMSULOSIN HCL 0.4 MG CAP PO SCH (23:16)
[2021-03-09] MEDS: ATORVASTATIN 40 MG TAB PO SCH (23:16)
[2021-03-10 02:47] LABS: Partial Thromboplastin Ratio 3.2
[2021-03-10 02:56] LABS: Partial Thromboplastin Time 83.2 Seconds (21.0-31.0)
[2021-03-10 06:40] LABS: Hematocrit (blood only) 33.1 % (42-52); Hemoglobin 10.1 g/dL (14.0-18.0); Mean Corpuscular Hemoglobin 24.5 pg (25-34); Mean Corpuscular Hgb Conc 30.5 g/dL (32-36); Mean Corpuscular Volume 80.1 fL (80-100); Mean Platelet Volume 12.3 fL (7.4-10.4); Platelet Count 179 K/uL (130-400); RDW Coefficient of Variation 14.7 % (11.5-14.5); RDW Standard Deviation 42.8 fL (36.4-46.3); Red Blood Count 4.13 M/uL (4.7-6.1); White Blood Count 6.28 K/uL (4.8-10.8)
[2021-03-10 07:28] LABS: BUN Creatinine Ratio 5.7 (10-20); Calcium 8.6 mg/dl (8.5-10.1); Creatinine Clr Calc Pharmacy 12.7 ml/min; Est GFR (African American) 12.8 ml/min; Troponin I 11.4 ng/ml (0-0.045)
[2021-03-10 07:29] LABS: Potassium 4.6 mmol/L (3.5-5.1)
[2021-03-10] MEDS: CALCIUM ACETATE 667 MG CAP/TAB PO SCH ×3 (08:10→16:43)
[2021-03-10] MEDS: ASPIRIN 81 MG ECTAB PO SCH (08:10)
[2021-03-10 09:40] LABS: Partial Thromboplastin Ratio 2.9
[2021-03-10 09:56] LABS: Partial Thromboplastin Time 76.6 Seconds (21.0-31.0)
--- NOTE | 2021-03-10 10:53 | Nephrology Consultation ---
Date of Consultation March 10, 2021 Assessment & Plan (1) ESRD (end stage renal disease) on dialysis: (2) Chest pain: (3) Elevated troponin: (4) Anemia due to chronic kidney disease: ESRD on hemodialysis Sunday, Sunday, Sunday, admitted with chest pain and elevated troponin. started having chest pain while on dialysis yesterday and dialysis had to be shortened. Currently blood pressure, volume status, electrolyte acceptable. Troponin has been persistently rising and has been on heparin drip. Waiting on further cardiology evaluation with history of coronary artery disease before and recent repeated episodes of chest pain. -- will plan for dialysis tomorrow, currently no indication for dialysis although did not have complete dialysis yesterday. -- Dose medications for GFR less than 10, left arm nephrology precaution. -- Will give Epogen with dialysis tomorrow will follow Thank you for allowing me to participate in your patient's care. It was a pleasure to see Javier History of Present Illness Reason for Consultation: End-stage renal disease on hemodialysis, admitted with chest pain. Attending Physician: Reji Peterson MD History of Present Illness Mr. Javier Poon is an 84-year-old male with PMH of ESRD on HD, CHF, ischemic cardiomyopathy, aortic valve replacement, history of CABG admitted to hospital with CP and elevated troponin. Nephrology consult was requested to manage hemodialysis while in hospital. EMS records are reviewed in detail during patient's visit. Javier was brought to emergency department from dialysis center after he c/o chest pain during dialysis. over last couple weeks he has been having off and on chest pain and he was taking sublingual nitroglycerin which would generally control his symptoms. While on dialysis yesterday he had another episode of chest pain and he took nitroglycerin and reported to the nursing staff. Considering repeated episodes of chest pain over last few years and history of coronary artery disease before he was referred to ER. He had 1 hour 30 minutes of dialysis yesterday and had around 1.5 L of UF. He reports that his symptom totally resolved before coming to ER. On admission EKG showed to well paced rhythm. Chest x-ray was unremarkable. Initial troponin was 0.6 which progressively increased to 8 and then last troponin was 11. Javier is on IHD at [facility] since 2011. 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 He also has a history of hydroureteronephrosis involving the right kidney. Dialysis schedule is MWF for 3 hrs 45 minutes on a 180 optiflux with Qb 450 / Qd 800. EDW has been ~92 kg. Past medical history is notable for hypertension, ASCVD with CABG x 4 in '08, ischemic cardiomyopathy with reduced systolic function, bioprosthetic AVR, dual- chamber pacemaker for symptomatic bradycardia, paroxysmal atrial fibrillation, and BPH. Currently he is otherwise feeling fine, denies any further episode of chest pain, shortness of breath. He denies any cough, congestion, fevers, chills, GI symptoms. Allergies Allergy/AdvReac Type Severity Reaction Status Date / Time No Known Drug Allergies Allergy Unknown . Verified 03/09/21 13:23 Home Medications Medication Instructions Recorded Confirmed Type atorvastatin 40 mg tablet 40 mg PO DAILY@202911/19/19 03/09/21 History nitroglycerin 0.4 mg sublingual 0.4 mg SUBLINGUAL UD PRN 11/19/19 03/09/21 History tablet (Nitrostat) calcium acetate 667 mg tablet 667 mg PO TIDM 01/01/20 03/09/21 History tamsulosin 0.4 mg capsule (Flomax) 0.4 mg PO DAILY@202901/01/20 03/09/21 History polyethylene glycol 3350 17 gram 17 g PO BID PRN ea 12/17/20 03/09/21 History oral powder packet (Miralax) oxycodone 5 mg tablet 5 mg PO Q8H PRN #60 tab 01/12/21 03/09/21 Rx acetaminophen 500 mg tablet 1,000 mg PO Q6H PRN 03/09/21 03/09/21 History (Tylenol Extra Strength) vit B complx, C-iron 8 mg-folic 1 tab PO PM 03/09/21 03/09/21 History acid 800 mcg-D3 1,000 unit-zinc tablet (ProRenal) Patient History Medical History (Updated 03/10/21 @ 11:04 by Sangita Croft MD) Anemia Anemia due to chronic kidney disease 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 ASCVD (arteriosclerotic cardiovascular disease) BPH (benign prostatic hyperplasia) Bullous pemphigoid Dialysis patient Dyslipidemia ESRD on dialysis HTN (hypertension) Pacemaker Pacemaker Renal calculi Surgical History Aortic valve replaced H/O inguinal hernia repair History of cataract surgery History of tonsillectomy Hx of CABG Family History Other Coronary heart disease Hypertension Stroke Social History Smoking Status: Never smoker Second Hand Exposure: No; Do You Dip or Chew Tobacco: No; Tobacco Cessation Education Requested by Patient: No Hx Alcohol Use: No Hx Substance Use: No Preferred Language: [place]guill[place] Communication Ability: Effective Milk Drier Required: No Beliefs That Will Affect Care: None marital status: Current Living Situation: Spouse Current Living Situation Comment: apartment current occupational status: retired Feels Safe at Home: Yes Safety Concerns: Feels Safe At This Time Assistive Devices: Walker Review of Systems Review of Systems: Detailed review of system was otherwise unremarkable. Physical Exam Constitutional: WD/WN, vitals as above well developed and well nourished; no acute distress Eyes: PERRL, conjunctivae normal, anicteric sclerae ENMT: external ear and nose normal, oropharynx normal Ears: no hearing impairment Neck: trachea midline Respiratory: normal respiratory effort, lungs clear to auscultation no cough Auscultation: no crackles, no rales and no wheezes Cardiovascular: RRR, no murmur, no edema Extremities: + AV fistula (left BC AVF with thrill and bruit) Gastrointestinal (Abdomen): normal bowel sounds, soft, nontender, no hepatosplenomegaly Percussion/Palpation: abdomen nontender, no guarding and abdomen not rigid Musculoskeletal: Extremities: extremities normal to inspection Gait: normal gait Skin: no rashes, warm and dry Neurologic: moves all extremities and awake Psychiatric: A+Ox3, euthymic affect Results & Data ([facility]) Vital Signs (Past 12 Hours) Vital Signs Temp Pulse Pulse Resp BP Pulse Ox 03/10/21 10:46 66 03/10/21 07:52 36.6 C 74 20 134/64 96 03/10/21 03:56 36.8 C 74 18 112/60 98 03/10/21 01:33 84 03/09/21 23:36 36.5 C 71 18 122/67 93 PG Care Time/CCT Total # of Minutes Spent Total Time Spent with Patient: Total time spent is greater than 50% in coor dination of care (as documented) at patient's floor/unit and/or counseling patient: Coding Level of Care Code 82540 Initial Inpt Care Lvl 3 Diagnoses ESRD (end stage renal disease) on dialysis N18.6; Z99.2 Chest pain R07.9 Chest pain type: unspecified Elevated troponin R77.8 Anemia due to chronic kidney disease N18.9; D63.1 (1) Chest pain Chest pain type: unspecified Qualified Code(s): R07.9 - Chest pain, unspecified
--- NOTE | 2021-03-10 16:04 | Cardiology Consultation ---
Date of Consultation March 10, 2021 Assessment & Plan (1) NSTEMI (non-ST elevated myocardial infarction): 1. NSTEMI: He presented with chest discomfort and significant troponin elevation, although the troponin elevation appears out of proportion to the degree of chest discomfort given his known coronary artery disease it almost certainly represents myocardial injury. His electrocardiogram cannot be read due to ventricular paced rhythm. He should have catheterization, I discussed it with him and he is agreeable. I will arrange for tomorrow morning. History of Present Illness Reason for Consultation: Chest discomfort Attending Physician: Reji Peterson MD History of Present Illness This is an 85-year-old male with a history of ischemic heart disease including bypass surgery in July 2007, valvular heart disease with a porcine aortic valve replacement as well in July 2007, severe left ventricular dysfunction with ejection fraction in the 20 to 25% range and a dual-chamber pacemaker implanted October 2011. He also has mild to moderate mitral regurgitation. Allergies Allergy/AdvReac Type Severity Reaction Status Date / Time No Known Drug Allergies Allergy Unknown . Verified 03/09/21 13:23 Home Medications Medication Instructions Recorded Confirmed Type atorvastatin 40 mg tablet 40 mg PO DAILY@202911/19/19 03/09/21 History nitroglycerin 0.4 mg sublingual 0.4 mg SUBLINGUAL UD PRN 11/19/19 03/09/21 History tablet (Nitrostat) calcium acetate 667 mg tablet 667 mg PO TIDM 01/01/20 03/09/21 History tamsulosin 0.4 mg capsule (Flomax) 0.4 mg PO DAILY@202901/01/20 03/09/21 History polyethylene glycol 3350 17 gram 17 g PO BID PRN ea 12/17/20 03/09/21 History oral powder packet (Miralax) oxycodone 5 mg tablet 5 mg PO Q8H PRN #60 tab 01/12/21 03/09/21 Rx acetaminophen 500 mg tablet 1,000 mg PO Q6H PRN 03/09/21 03/09/21 History (Tylenol Extra Strength) vit B complx, C-iron 8 mg-folic 1 tab PO PM 03/09/21 03/09/21 History acid 800 mcg-D3 1,000 unit-zinc tablet (ProRenal) Patient History Medical History (Updated 03/10/21 @ 18:12 by Charly Kunz MD) Anemia Anemia due to chronic kidney disease 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 ASCVD (arteriosclerotic cardiovascular disease) BPH (benign prostatic hyperplasia) Bullous pemphigoid Dialysis patient Dyslipidemia ESRD on dialysis HTN (hypertension) Pacemaker Pacemaker Renal calculi Surgical History Aortic valve replaced H/O inguinal hernia repair History of cataract surgery History of tonsillectomy Hx of CABG Family History Other Coronary heart disease Hypertension Stroke Social History Smoking Status: Never smoker Second Hand Exposure: No; Do You Dip or Chew Tobacco: No; Tobacco Cessation Education Requested by Patient: No Hx Alcohol Use: No Hx Substance Use: No Preferred Language: Italian Communication Ability: Effective 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 Beliefs That Will Affect Care: None marital status: Current Living Situation: Spouse Current Living Situation Comment: apartment current occupational status: retired Feels Safe at Home: Yes Safety Concerns: Feels Safe At This Time Assistive Devices: Walker Results & Data ([facility]) Vital Signs (Past 12 Hours) Vital Signs Temp Pulse Pulse Resp BP Pulse Ox 03/10/21 15:41 36.4 C L 60 20 132/70 98 03/10/21 15:09 83 03/10/21 11:39 36.8 C 73 20 123/68 95 03/10/21 10:46 66 03/10/21 07:52 36.6 C 74 20 134/64 96 PG Care Time/CCT Total # of Minutes Spent Total Time Spent with Patient: Total time spent is greater than 50% in coordination of care (as documented) at patient's floor/unit and/or counseling patient: Coding Diagnoses NSTEMI (non-ST elevated myocardial infarction) I21.4
--- NOTE | 2021-03-10 16:15 | XCELERA ---
[id number] \\[id number]
[2021-03-10] MEDS: HEPARIN SODIUM/DEXTROSE 25,000 UNITS/500 ML BAG IV SCH (16:43)
[2021-03-10 16:54] LABS: Partial Thromboplastin Ratio 2.7
--- NOTE | 2021-03-10 17:07 | Hospitalist Progress Note ---
Date of Service March 10, 2021 Assessment & Plan (1) Chest pain: (2) Elevated troponin: (3) Ischemic cardiomyopathy: Plan: Patient is 85-year-old male with PMH HTN, HLD, valvular heart disease s/p porcine AVR 2007, CAD s/p CABG x4 in 2007, ischemic cardiomyopathy, EF 20-25% in 2020, intolerant to medications, symptomatic bradycardia s/p pacemaker, ESRD on HD, chronic anemia, BPH, chronic thrombocytopenia presented to ER with complaint of chest pressure and SOB today while at dialysis. He states oxygen was applied and IVF given and pt took 1 SL nitro with relief of chest discomfort and SOB. In ER pt afebrile, vitals stable. Initial troponin: 0.6, repeat 3 hours later was 1.8. EKG paced rhythm. This mornig patient denies any chest pain, SOB, dizziness or any palpitations. C.w heparing gtt. TTE is pending. Appreciate cardiology input. Plan for cath tomorrow. -c/w aspirin/statin -Nitro prn CP and repeat EKG for CP (4) ESRD on dialysis: Plan: Follows with [facility] nephrology. MWF schedule Appears euvolemic at this time -Continue renal meds -Nephrology consult for assistance in HD (5) BPH (benign prostatic hyperplasia): Plan: -Continue tamsulosin DVT Prophylaxis -On Heparin IV DNR/DNI as per discussion with pt Follows with Dr House for routine care. Admission and Anticipated Discharge Date Admission Date: March 09, 2021 Subjective Patient is doing okay this morning. No further episodes of chest pain. Denies any dizziness or palpitations, denies any shortness of breath. Hemodynamically doing fine the review of system is negative Review of Systems Review of Systems: All systems reviewed & are unremarkable except as noted in HPI & below Physical Exam Physical Exam: General: A&Ox3 HENT: NCAT, MMM, EOMI Eyes: PERRLA Neck: Supple, normal range of motion CVS: normal rate and rhythm Resp: b/l good breath sounds Abdomen: Soft, ND/NT, +BS Extremities: No c/c/e Neuro: face symmetric, strength grossly equal, no focal deficit Skin: warm and dry, no rashes/lesions/errythema MSK: normal ROM, no joint swelling/erythema Results & Data Results & Data ([facility]) Vital Signs (Past 12 Hours) Vital Signs Temp Pulse Pulse Resp BP Pulse Ox 03/10/21 15:41 36.4 C L 60 20 132/70 98 03/10/21 15:09 83 03/10/21 11:39 36.8 C 73 20 123/68 95 03/10/21 10:46 66 03/10/21 07:52 36.6 C 74 20 134/64 96
[2021-03-10 17:20] LABS: Partial Thromboplastin Time 72.3 Seconds (21.0-31.0)
[2021-03-10 19:36] LABS: Hepatitis B Surface Ab Quant 5.84 mIU/mL (>or=10mIU/mL Immune); Hepatitis B Surface Antibody Non-Immune
[2021-03-10 19:47] LABS: Hepatitis B Surf Ag Rflx Conf Neg (Neg)
[2021-03-10] MEDS: ATORVASTATIN 40 MG TAB PO SCH (20:28)
[2021-03-10] MEDS: TAMSULOSIN HCL 0.4 MG CAP PO SCH (20:28)
[2021-03-10 23:39] LABS: Partial Thromboplastin Ratio 2.4
[2021-03-10 23:40] LABS: Partial Thromboplastin Time 63.8 Seconds (21.0-31.0)
[2021-03-11 07:18] LABS: Basophils # (auto) 0.01 K/uL (0-0.2); Basophils % (auto) 0.2 %; Eosinophils # (auto) 0.24 K/uL (0-0.5); Eosinophils % (auto) 3.8 %; Hematocrit (blood only) 31.4 % (42-52); Hemoglobin 9.9 g/dL (14.0-18.0); Immature Granulocytes # (auto) 0.01 K/uL (0.00-0.02); Immature Granulocytes % (auto) 0.2 %; Lymphocytes # (auto) 1.22 K/uL (1.2-3.4); Lymphocytes % (auto) 19.4 %; Mean Corpuscular Hemoglobin 24.9 pg (25-34); Mean Corpuscular Hgb Conc 31.5 g/dL (32-36); Mean Corpuscular Volume 79.1 fL (80-100); Mean Platelet Volume 11.8 fL (7.4-10.4); Monocytes # (auto) 0.53 K/uL (0.11-0.59); Monocytes % (auto) 8.4 %; Neutrophils # (auto) 4.28 K/uL (1.4-6.5); Platelet Count 183 K/uL (130-400); RDW Coefficient of Variation 14.4 % (11.5-14.5); RDW Standard Deviation 41.3 fL (36.4-46.3); Red Blood Count 3.97 M/uL (4.7-6.1); White Blood Count 6.29 K/uL (4.8-10.8)
[2021-03-11 08:10] LABS: Partial Thromboplastin Ratio 2.5; Partial Thromboplastin Time 66.7 Seconds (21.0-31.0)
[2021-03-11] MEDS ORDERED: NITROGLYCERIN/D5W 100MCG/ML 20ML SYR ONE (08:46)
[2021-03-11] MEDS ORDERED: MIDAZOLAM HCL 1 MG/ML 2ML VIAL ONE (08:46)
[2021-03-11] MEDS ORDERED: HEPARIN (PORCINE) 1000 UNIT/ML 10 ML (CATH LAB USE ONLY) ONE (08:46)
[2021-03-11] MEDS ORDERED: niCARdipine HCL INJ 2.5 MG/ML 10 ML AMP ONE (08:46)
[2021-03-11] MEDS ORDERED: fentaNYL citrate 100 MCG/2 ML VIAL ONE (08:46)
--- NOTE | 2021-03-11 08:50 | Pre Anesthesia Assessment ---
Date of Service March 11, 2021 Pre Sedation Assessment Vital Signs Temp Pulse Pulse Resp BP Pulse Ox 03/11/21 08:12 74 18 135/68 98 03/11/21 07:55 97.5 F L 62 18 132/72 99 03/11/21 04:00 97.9 F 76 18 124/62 96 03/11/21 02:29 72 03/10/21 23:00 98.1 F 69 18 128/74 92 03/10/21 19:00 98.2 F 73 18 128/71 98 03/10/21 15:41 97.5 F L 60 20 132/70 98 03/10/21 15:09 83 03/10/21 11:39 98.2 F 73 20 123/68 95 03/10/21 10:46 66 Cardiovascular RRR, no murmur, no edema Respiratory normal respiratory effort, lungs clear to auscultation Pre-Sedation Airway Assessment Smoking Status: Never smoker Hx Sleep Apnea: No Hx Difficult Intubation: No Short, Thick Neck: No Thyromental Distance: > or= 3.5 Finger Breadths Oral Cavity: + WNL Mallampati Class: II ASA: ASA2 NPO Status Date of Last Intake of Fluids: 03/10/21 Time of Last Intake of Fluids: 18:00 Date of Last Intake of Solid Food: 03/11/21 Time of Last Intake of Solid Foods: 18:00 Procedure Planning Contraindications for Sedation: none Current Medications Reviewed: Yes Notes The planned sedation has been discussed with the patient. Informed Consent was obtained. I have identified the patient, determined the appropriateness of sedation and have assessed the patient immediately prior to the procedure. All medicine(s) and interventions are by my order.
[2021-03-11] MEDS: CALCIUM ACETATE 667 MG CAP/TAB PO SCH ×3 (09:20→17:29)
[2021-03-11] MEDS ORDERED: BIVALIRUDIN 250 MG VIAL (CATH LAB ONLY) ONE (09:32)
--- NOTE | 2021-03-11 10:22 | Nephrology Progress Note ---
Date of Service March 11, 2021 Assessment & Plan (1) ESRD (end stage renal disease) on dialysis: (2) Chest pain: (3) Elevated troponin: (4) Anemia due to chronic kidney disease: Plan: ESRD on hemodialysis Sunday, Sunday, Sunday, admitted with NSTEMI. He start ed having chest pain while on dialysis on 03/09/21. Currently blood pressure, volume status, electrolyte acceptable. Troponin has been persistently rising and has been on heparin drip. has been asymptomatic since admission, had cardiac cath this morning. -- dialysis today once his back from cardiac catheterization. -- Dose medications for GFR less than 10, left arm nephrology precaution. -- Will give Epogen with dialysis will follow Admission and Anticipated Discharge Date Admission Date: March 09, 2021 Mervat Cleveland was at slab installer getting cardiac catheterization this morning. His vital sign has been stable. Did not have any further episode of chest pain. Electrolyte acceptable. Due for dialysis after cardiac catheterization. Results & Data ([facility]) Vital Signs (Past 12 Hours) Vital Signs Temp Pulse Pulse Resp BP Pulse Ox 03/11/21 08:12 74 18 135/68 98 03/11/21 07:55 36.4 C L 62 18 132/72 99 03/11/21 04:00 36.6 C 76 18 124/62 96 03/11/21 02:29 72 03/10/21 23:00 36.7 C 69 18 128/74 92 PG Care Time/CCT Total # of Minutes Spent Total Time Spent with Patient: Total time spent is greater than 50% in coordination of care (as documented) at patient's floor/unit and/or counseling patient: Coding Level of Care Code 41504 Subseq Hosp Care Lvl 2 Diagnoses ESRD (end stage renal disease) on dialysis N18.6; Z99.2 Chest pain R07.9 Chest pain type: unspecified Elevated troponin R77.8 Anemia due to chronic kidney disease N18.9; D63.1 (1) Chest pain Chest pain type: unspecified Qualified Code(s): R07.9 - Chest pain, unspecified
--- NOTE | 2021-03-11 10:28 | Post Anesthesia Assessment ---
Date of Service March 11, 2021 Post Sedation Assessment Vital Signs Temp Pulse Pulse Resp BP Pulse Ox 03/11/21 08:12 74 18 135/68 98 03/11/21 07:55 97.5 F L 62 18 132/72 99 03/11/21 04:00 97.9 F 76 18 124/62 96 03/11/21 02:29 72 03/10/21 23:00 98.1 F 69 18 128/74 92 03/10/21 19:00 98.2 F 73 18 128/71 98 03/10/21 15:41 97.5 F L 60 20 132/70 98 03/10/21 15:09 83 03/10/21 11:39 98.2 F 73 20 123/68 95 03/10/21 10:46 66 Recovery Score Activity: Moves 4 extremities Respiration: Deep Breath/Cough Circulation: +/-20% PreAnes Value Consciousness: Fully Awake Oxygen Saturation: O2 needed for >90% Discharge Sedation Level of Care: Fast Track Phase II Post Sedation Plan On clinical assessment, the patient appears to have tolerated the sedation without complications. Patient is recovering as anticipated. Patient will continue to be monitored by nursing and may be discharged when sedation discharge criteria are met per below protocol. Upon Completions of procedure up to 15 minutes continue every 5 minute vital signs and the P.A.R. score; then discharge to a Phase I or Fast Track to Phase II per the following guidelines: * Discharge Patient to appropriate Phase II area if PAR is 8 or greater or return to pre- procedure baseline. The post - procedure orders will be as directed. * If PAR score is less than 8 or not return to pre-procedure baseline then patient will follow Phase I monitoring till PAR is reached for Phase II. The Phase I may be done in procedure room or may call to secure a Phase I area. * If naloxone or flumazenil are used for reversal, hold in Phase I for continued monitoring from when last reversal dose was given for a minimum of 60 minutes or longer pending the nurse and/or physician discretion of patient condition before discharge to Phase II. Please call the Sedation Physician to re-evaluate and complete post-note for discharge to Phase II area. Do NOT discharge from procedure sedation or Phase 1 until post- sedation evaluation note is complete by procedure /sedation MD Sedation Discharge Instructions to be given to the patient at discharge to home.
--- NOTE | 2021-03-11 10:37 | Cardiac Catheterization ---
[facility] Data: Managing Consultant Clinical Professor Cardiac Status Clinical evaluation leading to the procedure CAD Presenation: Non STEMI Anginal Classification: CCS IV Heart Failure: No Cardiogenic Shock within 24 Hours: No Cardiac Arrest within 24 Hours: No Imaging Studies Past 6 Months: Yes Stress Studies Past 6 Months: No Diagnostic Physicians Name: Erasmo Park MD Status: Elective Closure Device Percutaneous Entry Location: Femoral Closure Device: Mynx Recommendations: Medical Therapy and/or Counseling Intraprocedure Events Significant Disection: No Perforation: No Cardiac Cath Procedure Full Procedure Date March 11, 2021 Pre-Procedure Diagnosis Pre-Procedure Diagnosis: Non STEMI AUC Score AUC Score: 8 Post-Procedure Diagnosis Post-Procedure Diagnosis: Severe CAD Procedure(s) Performed Procedure(s) Performed: Coronary Angiography, Ultrasound Guided Vascular Access, Bypass Graft Angiography and Femoral Artery Angiography Feather Boner Erasmo Park MD Mechanical Maintenance(s) Showers Estimated Blood Loss Estimated Blood Loss: 10 Medication(s) Medication(s): Fentanyl, Lidocaine 1% and Versed Summary of Findings Indication: NSTEMI. History of four-vessel CABG, ischemic cardiomyopathy, end-s tage renal disease on dialysis. Access: 5 Fr right common femoral artery under ultrasound guidance with micropuncture needle Catheters: JL4, JR4, AR-1, ARLEEN, AL-1 Findings: LM -99% distal stenosis. LAD -100% proximal occlusion. Limited antegrade flow into first diagonal Circumflex -100% proximal occlusion RCA -small, nondominant RCA. AHUJA to LADwidely patent SVG to OM50% ostial stenosis with waveform dampening. Remainder of graft widely patent. Retrofills into mid circumflex. Distal circumflex with 99% acute appearing stenosis and FRED I flow. SVG to diagonaloccluded SVG to small left PLBnot visualized. Thought to be patent with competitive flow noted. Arterial Closure: Mynx, manual closure Summary: 1. Severe multivessel coronary artery disease -99% distal left main 100% proximal LAD 100% proximal circumflex. Small nondominant RCA Retrofilled distal circumflex with 99% acute appearing stenosis (potential culprit). 2. Widely patent AHUJA to LAD 3. 50% ostial SVG to OM SVG to small left PLB not visualized but suspect patent with competitive flow in PLB. 4. SVG to diagonal occluded Recommendations: Medical management and titration of antianginal therapy as needed. Distal circumflex disease low risk and not amenable to PCI. Can discontinue heparin. Hemodynamics Rest Ao:: 135/50/81 Final Ao: 123/46/80 LV: -- Recommendations Recommendations: Medical Therapy and/or Counseling Specimens Specimens: None Radiation Exposure (mGy) 3470 Contrast (mls) 140 Fluids (cc crystalloids) Fluids (cc crystalloids): 100 Drains Drains: None Anesthesia Moderate 1553-3567 Procedural Complication(s) None Disposition PCU I attest to the content of the Intraoperative Record and any orders documented therein. Any exceptions are noted below. [facility] Card Cath Procedure Codes Cardiac Catheterization Procedure 1: Cardiovascular Cath Procedures: 06827 Coronaries and Grafts/IM (venous & atrial) Therapeutic Services & Ancillary Proc Procedure 1: Cardiovascular Tx and Anc Procedures: 98703 Ultrasonic Guidance Vascular Access Moderate Sedation Procedure 1: Sedation/Anesthesia: 09648 Mod Sedation by the same physician;Init15 Min Child Age 5 & Up Procedure 2: Sedation/Anesthesia: 15832 Mod Sedation by the same physician; Ea [id number] Minutes PG Care Time/CCT Total # of Minutes Spent Total Time Spent with Patient: Total time spent is greater than 50% in coordination of care (as documented) at patient's floor/unit and/or counseling patient:
--- NOTE | 2021-03-11 16:30 | Hospitalist Progress Note ---
Date of Service March 11, 2021 Assessment & Plan (1) NSTEMI (non-ST elevated myocardial infarction): Plan: Severe multivessel disease on cardiac catheterization this morning. Medical management and titration of antianginal therapy as needed per cardiology. Heparin drip was discontinued. (2) Ischemic cardiomyopathy: Plan: Echocardiogram on 03/10 reveals severely reduced left ventricular systolic function with regional wall motion abnormalities. Moderate MR and moderate TR are noted. An elevated right ventricular systolic pressure is also noted at 40 to 50 mmHg. There is a bioprosthetic aortic valve present. Prior cardiology note from December indicates that he has failed trials of lisinopril and metoprolol succinate to medically manage his cardiomyopathy. He is notably not on any antianginal therapy. Cont medical management per cardiology. (3) ESRD on dialysis: Plan: Continue inpatient dialysis per nephrology who was consulted. This patient is typically on a Sunday schedule. Continue calcium acetate 3 times daily per home regimen. (4) BPH (benign prostatic hyperplasia): Plan: -Continue tamsulosin per home regimen. (5) Anemia due to chronic kidney disease: Plan: Chronic, Epogen given with dialysis (6) DVT prophylaxis: Plan: Heparin drip stopped, Lovenox scheduled for a.m. DNR/DNI Disposition-to home pending PT/OT evaluations. Aurora Hanna DO [facility] Hospitalist Admission and Anticipated Discharge Date Admission Date: March 09, 2021 Subjective 85 yo M with a h/o CABG presented with acute chest pain during dialysis, elevated troponin cath today with 50% blockage in vessels and no stents placed patient reports his chest pain resolved prior to getting to the hospital he denies any current chest pain or SOB he denies any pain in his thigh. he is requesting to go home, however, he was unable to independently get out of bed for the nursing staff. He underwent hemodialysis this afternoon wtih 1L fluid removed I discussed with his that it would not be safe for him to return home tonight and she is in agreement with that plan. Review of Systems Review of Systems: All systems were reviewed and negative except as indicated in HPI above. Physical Exam Physical Exam: CONSTITUTIONAL: WNWD, vitals as above, generally well- appearing EYES: normal conjunctivae, no scleral icterus ENT: external ear and nose normal, MMM RESPIRATORY: clear to auscultation bilaterally, no crackles, rales or wheezes, normal respiratory effort CARDIOVASCULAR: regular rate and rhythm, S1 and 2 heard without murmurs, gallops or rubs, no JVD, no peripheral edema CHEST: inspection of chest was normal GASTROINTESTINAL: soft, nontender, nondistended. MUSCULOSKELETAL: strength 5/5 throughout, head is normocephalic and atraumatic, neck supple, normal palpation of chest wall without tenderness SKIN: warm and dry, right thigh assessed and good femoral pulse without erythema or hematoma in this area. Dressing in place is c/d/i NEUROLOGIC: CN 2-12 grossly intact, no sensory deficit, normal cognition, normal speech, no tremor PSYCHIATRIC: alert cooperative and oriented to person, place and time. Results & Data Results & Data ([facility]) Vital Signs (Past 12 Hours) Vital Signs Temp Pulse Pulse Pulse Resp BP BP 03/11/21 16:20 83 94/52 L 03/11/21 16:05 81 03/11/21 16:00 81 83/49 L 03/11/21 15:40 81 95/41 L 03/11/21 15:20 88 87/55 L 03/11/21 15:00 63 106/64 03/11/21 14:40 62 93/32 L 03/11/21 14:20 86 132/54 L 03/11/21 14:00 86 102/58 L 03/11/21 13:50 87 103/55 L 03/11/21 13:40 86 84/60 L 03/11/21 13:20 79 103/57 L 03/11/21 13:00 79 97/54 L 03/11/21 12:42 36.5 C 77 03/11/21 12:34 67 110/64 03/11/21 12:04 73 118/68 03/11/21 11:34 36.7 C 71 20 126/64 03/11/21 11:30 81 03/11/21 11:10 71 18 115/59 L 03/11/21 11:00 68 18 121/52 L 03/11/21 10:45 68 18 121/83 03/11/21 10:35 70 18 126/87 03/11/21 08:12 74 18 135/68 03/11/21 07:55 36.4 C L 62 18 132/72 Pulse Ox 03/11/21 16:20 03/11/21 16:05 03/11/21 16:00 03/11/21 15:40 03/11/21 15:20 03/11/21 15:00 03/11/21 14:40 03/11/21 14:20 03/11/21 14:00 03/11/21 13:50 03/11/21 13:40 03/11/21 13:20 03/11/21 13:00 03/11/21 12:42 03/11/21 12:34 03/11/21 12:04 03/11/21 11:34 97 03/11/21 11:30 03/11/21 11:10 94 03/11/21 11:00 95 03/11/21 10:45 95 03/11/21 10:35 90 03/11/21 08:12 98 03/11/21 07:55 99 Laboratory Results Short CBC 03/11/21 Range/Units 06:47 WBC 6.29 (4.8-10.8) K/uL Hgb 9.9 L (14.0-18.0) g/dL Hct 31.4 L (42-52) % Plt Count 183 (130-400) K/uL Medications Administered Current Inpatient Medications Acetaminophen (Acetaminophen 325 Mg Tab) 650 mg PO Q4H PRN PRN Reason: Pain or Fever Stop: 04/08/21 19:53 Aspirin (Aspirin 81 Mg Ectab) 81 mg PO QAM [facility] Stop: 04/09/21 08:59 Last Admin: 03/10/21 08:10 Dose: 81 mg Documented by: Atorvastatin Calcium (Atorvastatin 40 Mg Tab) 40 mg PO DAILY@2030 [facility] Stop: 04/08/21 20:29 Last Admin: 03/10/21 20:28 Dose: 40 mg Documented by: Calcium Acetate (Calcium Acetate 667 Mg Cap/Tab) 667 mg PO TIDM [facility] Stop: 04/09/21 07:59 Last Admin: 03/11/21 13:30 Dose: Not Given Documented by: Miscellaneous (Order Awaiting Action [Pro Renal Capsule]) 1 ea N/A QS [facility] Stop: 04/09/21 00:00 Last Admin: 03/11/21 09:21 Dose: Not Given Documented by: Nitroglycerin (Nitroglycerin Sl 0.4 Mg/Tab Tab) 0.4 mg SL UD PRN PRN Reason: Chest Pain Stop: 04/08/21 19:53 Polyethylene Glycol (Polyethylene (Miralax) 17 Gm Pack) 17 gm PO BID PRN PRN Reason: Constipation Stop: 04/08/21 19:53 Tamsulosin HCl (Tamsulosin Hcl 0.4 Mg Cap) 0.4 mg PO DAILY@2030 [facility] Stop: 04/08/21 20:29 Last Admin: 03/10/21 20:28 Dose: 0.4 mg Documented by:
--- NOTE | 2021-03-11 16:47 | Electrocardiogram Report ---
Test Reason : Blood Pressure : / mmHG Vent. Rate : 082 BPM Atrial Rate : 084 BPM P-R Int : 104 ms QRS Dur : 216 ms QT Int : 498 ms P-R-T Axes : 025 -72 101 degrees QTc Int : 581 ms Poor data quality, interpretation may be adversely affected Atrial-sensed ventricular-paced rhythm with occasional AV dual-paced complexes Abnormal ECG When compared with ECG of 30-JAN-2020 09:38, No significant change Confirmed by Charly Kunz ([id number]) on 03/11/2021 4:46:49 PM Referred By: Confirmed By:Charly Kunz
--- NOTE | 2021-03-11 17:05 | Electrocardiogram Report ---
Test Reason : Blood Pressure : / mmHG Vent. Rate : 073 BPM Atrial Rate : 073 BPM P-R Int : 142 ms QRS Dur : 200 ms QT Int : 484 ms P-R-T Axes : 056 -59 116 degrees QTc Int : 533 ms Atrial-sensed ventricular-paced rhythm Abnormal ECG When compared with ECG of 09-MAR-2021 12:21, (unconfirmed) Vent. rate has decreased BY 9 BPM Confirmed by Charly Kunz ([id number]) on 03/11/2021 5:05:16 PM Referred By: REFERRED SELF Confirmed By:Charly Kunz
[2021-03-11] MEDS: ASPIRIN 81 MG ECTAB PO SCH (17:28)
--- NOTE | 2021-03-11 18:03 | Discharge Summary ---
Date of Service March 12, 2021 Admission HPI Per Admitting Provider Patient is 85-year-old male with PMH HTN, HLD, valvular heart disease s/p porcine AVR 2007, CAD s/p CABG x4 in 2007, ischemic cardiomyopathy, EF 20-25% in 2020, intolerant to medications, symptomatic bradycardia s/p pacemaker, ESRD on HD, chronic anemia, BPH, chronic thrombocytopenia presented to ER with complaint of chest pain today. Patient reports was at dialysis today when he developed chest pain at around 11am. It is reported that they cut his dialysis approximately 30 minutes short today. He states oxygen was applied and IVF given and pt took 1 SL nitro with relief of chest discomfort and SOB. He states he took 1 SL nitro earlier today for chest pressure with relief. Denies associated dizziness, palpitations, dizziness or diaphoresis. Patient reports has had episodes of chest pressure with SOB while riding in van going to dialysis and he takes nitro with relief. He also reports will take nitro for chest pressure while at dialysis. Today is first time dialysis was aware of pt having chest discomfort. He does not move or walk around much, is able to ambulate short distance in house with walker without CP or SOB. Denies fever/chills, diaphoresis, N/V/D/C, [place], dizziness, syncope, vision changes, neck pain, orthopnea, palpitations, cough, sore throat, choking, otalgia, rhinorrhea, abdominal pain, paresthesias, weakness, extremity weakness, extremity edema, rashes, urinary symptoms. In ER pt afebrile, vitals stable. Initial troponin: 0.6, repeat 3 hours later was 1.8. EKG paced rhythm. Pt without chest pain/pressure or SOB while in ER. Admission Exam Per Admitting Provider General: no distress, WDWN Head: normocephalic, atraumatic Eyes:conjunctiva non-injected, anicteric ENT: normal inspection external ears, nose, mucous membranes moist Neck: supple, trachea midline Lungs: clear, no respiratory distress, no wheezing/rhonchi/rales CV: RRR, + murmur, no pretibial edema Abd: normal BS, soft, non-tender Ext: no cyanosis, no calf tenderness; LUE with fistula with palpable thrill Neuro: A&O x 3, no focal deficits noted, normal affect Skin: warm, dry Principal Diagnosis NSTEMI Ischemic cardiomyopathy h/o CABG Discharge Exam CONSTITUTIONAL: WNWD, vitals as above, generally well-appearing EYES: normal conjunctivae, no scleral icterus ENT: external ear and nose normal, MMM NECK: trachea midline RESPIRATORY: clear to auscultation bilaterally, no crackles, rales or wheezes, normal respiratory effort CARDIOVASCULAR: regular rate and rhythm, S1 and 2 heard without murmurs, gallops or rubs, no JVD, no peripheral edema GASTROINTESTINAL: soft, nontender, nondistended, no guarding MUSCULOSKELETAL: strength 5/5 throughout, head is normocephalic and atraumatic SKIN: warm and dry NEUROLOGIC: CN 2-12 grossly intact, normal cognition, no gross focal deficits PSYCHIATRIC: alert cooperative and oriented to person, place and time. Discharge Data Allergies Allergy/AdvReac Type Severity Reaction Status Date / Time No Known Drug Allergies Allergy Unknown . Verified 03/09/21 13:23 Consultations 03/09/21 17:48 ED Decision to Admit Stat 03/09/21 19:54 Consult Cardiology Routine Consult Nephrology Routine Procedures Performed Operation Date: 03/11/21 08:00 Actual Procedures p Cath, Cors with Grafts (no LV) - [place] MD s Cineradiography w/Routine Exam - [place] MD s Ultrasound Vascular Access - [place] MD Ordered Studies Laboratory Results WBC 6.29 K/uL (4.8-10.8) 03/11/21 06:47 RBC 3.97 M/uL (4.7-6.1) L 03/11/21 06:47 Hgb 9.9 g/dL (14.0-18.0) L 03/11/21 06:47 Hct 31.4 % (42-52) L 03/11/21 06:47 MCV 79.1 fL (80-100) L 03/11/21 06:47 MCH 24.9 pg (25-34) L 03/11/21 06:47 MCHC 31.5 g/dL (32-36) L 03/11/21 06:47 RDW Std Deviation 41.3 fL (36.4-46.3) 03/11/21 06:47 RDW Coeff of Gill 14.4 % (11.5-14.5) 03/11/21 06:47 Plt Count 183 K/uL (130-400) 03/11/21 06:47 MPV 11.8 fL (7.4-10.4) H 03/11/21 06:47 Immature Gran % (Auto) 0.2 % 03/11/21 06:47 Neut % (Auto) 68.0 % 03/11/21 06:47 Lymph % (Auto) 19.4 % 03/11/21 06:47 Tama % (Auto) 8.4 % 03/11/21 06:47 Eos % (Auto) 3.8 % 03/11/21 06:47 Baso % (Auto) 0.2 % 03/11/21 06:47 Neut # (Auto) 4.28 K/uL (1.4-6.5) 03/11/21 06:47 Lymph # (Auto) 1.22 K/uL (1.2-3.4) 03/11/21 06:47 Tama # (Auto) 0.53 K/uL (0.11-0.59) 03/11/21 06:47 Eos # (Auto) 0.24 K/uL (0-0.5) 03/11/21 06:47 Baso # (Auto) 0.01 K/uL (0-0.2) 03/11/21 06:47 Immature Gran # (Auto) 0.01 K/uL (0.00-0.02) 03/11/21 06:47 APTT 29.2 Seconds (21.0-31.0) 03/12/21 05:25 PTT Ratio 1.1 03/12/21 05:25 Sodium 140 mmol/L (136-145) 03/10/21 06:01 Potassium 4.6 mmol/L (3.5-5.1) D 03/10/21 06:01 Chloride 105 mmol/L (98-107) 03/10/21 06:01 Carbon Dioxide 27 mmol/L (21-32) 03/10/21 06:01 Anion Gap 8.0 (3-11) 03/10/21 06:01 BUN 25 mg/dl (7-18) H 03/10/21 06:01 Creatinine 4.49 mg/dl (0.6-1.4) H D 03/10/21 06:01 Est Cr Clr Drug Dosing 12.7 ml/min 03/10/21 06:01 Est GFR ( Amer) 12.8 ml/min 03/10/21 06:01 Est GFR (Non-Af Amer) 11.0 ml/min 03/10/21 06:01 BUN/Creatinine Ratio 5.7 (10-20) L 03/10/21 06:01 Glucose 87 mg/dl (70-99) 03/10/21 06:01 Calcium 8.6 mg/dl (8.5-10.1) 03/10/21 06:01 Phosphorus 1.9 mg/dl (2.5-4.9) L 03/09/21 13:47 Magnesium 2.0 mg/dl (1.8-2.4) 03/09/21 13:47 Total Bilirubin 0.5 mg/dl (0.2-1) 03/09/21 13:47 Direct Bilirubin 0.1 mg/dl (0-0.2) 03/09/21 13:47 AST 16 U/L (15-37) 03/09/21 13:47 ALT 14 U/L (12-78) 03/09/21 13:47 Alkaline Phosphatase 100 U/L (45-117) 03/09/21 13:47 Troponin I 11.400 ng/ml (0-0.045) H* 03/10/21 06:01 Total Protein 7.0 gm/dl (6.4-8.2) 03/09/21 13:47 Albumin 3.4 gm/dl (3.4-5.0) 03/09/21 13:47 Globulin 3.6 gm/dl (2.5-4.0) 03/09/21 13:47 Albumin/Globulin Ratio 0.9 (0.9-2) 03/09/21 13:47 Triglycerides 70 mg/dl (0-150) 03/10/21 06:01 Cholesterol 124 mg/dl (0-200) 03/10/21 06:01 LDL Cholesterol, Calc 70 mg/dl 03/10/21 06:01 VLDL Cholesterol, Calc 14 mg/dl 03/10/21 06:01 HDL Cholesterol 40 mg/dl 03/10/21 06:01 Cholesterol/HDL Ratio 3 03/10/21 06:01 Lipase 95 U/L (73-393) 03/09/21 13:47 TSH 2.770 uIu/ml (0.300-4.500) 03/09/21 13:47 COVID-19 Eval Order Covid19 at [facility] 03/09/21 14:40 SARS-CoV-2 (PCR) NEGATIVE (Negative) 03/09/21 14:40 Hep Bs Antigen Neg (Neg) 03/10/21 16:13 Hep Bs Antibody Non-Immune 03/10/21 16:13 Hep Bs Antibody, Quant 5.84 mIU/mL (>or=10mIU/mL Immune) L 03/10/21 16:13 Impressions Chest X-Ray 03/09/21 12:38 SINGLE VIEW CHEST CLINICAL HISTORY: Atypical chest pain. FINDINGS: An AP, portable, upright chest radiograph is compared to study dated 01/10/2020. A 2-lead cardiac pacemaker is unchanged in position. The patient is status post midline sternotomy. The heart is enlarged noting atherosclerotic calcification of the thoracic aorta. There is prominence of the pulmonary vasculature. Atelectasis is noted at the lung bases. No airspace consolidation or large pleural effusion is identified. No pneumothorax is seen. The skeletal structures are osteopenic. There is chronic posttraumatic deformity of the left proximal humerus. Advanced arthritic changes seen in the left shoulder. IMPRESSION: 1. Cardiomegaly and cardiac pacemaker with prominence of the pulmonary vascular. Correlate clinically for evidence of mild congestive failure. 2. No airspace consolidation or large pleural effusion is identified. ACT 112: Negative or not required by law. Electronically signed by: Star Aleman M.D. 03/09/2021 1:06 PM Hospital Course (1) NSTEMI (non-ST elevated myocardial infarction): 85-year-old male with valvular heart disease s/p porcine AVR 2007, CAD s/p CABG x4 in 2007, ischemic cardiomyopathy, EF 20-25% in 2019, intolerant to medications including beta blockers and FREDY inhibitors, symptomatic bradycardia s/p pacemaker, ESRD on HD, chronic anemia, BPH, chronic thrombocytopenia presented to ER with complaint of chest pressure and SOB while at dialysis. Oxygen was applied and IVF given. He took 1 sublingual nitro with relief of chest discomfort and dyspnea. He was admitted to the hospitalist team and cardiology consulted. Started on a heparin drip. A cardiac catheterization was recommended revealing 1. Severe multivessel coronary artery disease -99% distal left main 100% proximal LAD 100% proximal circumflex. Small nondominant RCA Retrofilled distal circumflex with 99% acute appearing stenosis (potential culprit). 2. Widely patent AHUJA to LAD 3. 50% ostial SVG to OM SVG to small left PLB not visualized but suspect patent with competitive flow in PLB. 4. SVG to diagonal occluded Recommendations: Medical management and titration of antianginal therapy as needed. Distal circumflex disease low risk and not amenable to PCI. Heparin drip was discontinued and patient was stable for discharge the day following heart catheterization. He underwent hemodialysis the day of cardiac cath and following this was very physically weak after the day's events. The following day he was evaluated by physical therapy and was felt safe to return home. Medications were not adjusted at discharge as his BP was too low and he had demonstrated intolerances listed above in the past. Close cardiology [place] was recommended for further consideration od antianginal therapy in outpatient setting. (2) Ischemic cardiomyopathy: Echocardiogram on 03/10 reveals severely reduced left ventricular systolic function with regional wall motion abnormalities. Moderate MR and moderate TR are noted. An elevated right ventricular systolic pressure is also noted at 40 to 50 mmHg. There is a bioprosthetic aortic valve present. Cont medical management per cardiology. (3) ESRD on dialysis: Continue inpatient dialysis per nephrology was consulted. This patient is typically on a Sunday schedule. Continue calcium acetate 3 times daily per home regimen. (4) BPH (benign prostatic hyperplasia): -Continue tamsulosin per home regimen. (5) Anemia due to chronic kidney disease: Chronic, Epogen given with dialysis Total Time Total Time Spent Total Time Spent (In Minutes): 45 Discharge Plan Discharge Items Patient Disposition: Home - Self-Care Reason For Visit: CP Discharge Diagnosis: NSTEMI Ischemic cardiomyopathy h/o CABG Condition on Discharge: Good Activity: Per Instructions section Non-emergency contact: Primary Care Provider and Stock Sorter Call non-emergency contact if: you have any medication questions, your symptoms worsen, your pain is not controlled, your pain is worsening, your pain is unusual for you and your pain is concerning for you Follow-up/Referrals: Suly House DO [Primary Care Provider] - 03/15/21 2:20 pm (Please follow up with Dr. House on Sunday03/15/21 at 2:20 pm. Please arrive to the office at 2:05 pm for your appointment. If you are unable to keep this appointment, please call the office to reschedule at [phone].) Diet: Dialysis Renal and Heart Healthy Add Attending Provider Instructions: Please take all medications as instructed on discharge list below. You should follow-up with your primary care provider in one week after discharge to home. This appointment will be to ensure everything is going well since returning home. Please follow all post-procedure instructions as outlined below and followup with Dr. Wheat as recommended. It was a pleasure taking care of you! Please call if you have any questions or problems. You can reach a [facility] hospitalist on duty at [facility] 24 hours a day by calling [phone]. Take care of yourself. Aurora Hanna, DO [facility] Hospitalist [facility] [employer] Tender Provider Instructions: ACTIVITY RECOMMENDATIONS: It is common to feel weak and fatigue for a few days. * Do not drive or operate any motorized equipment for the next three days. * Limit stair usage (2 or 3 trips a day only) for the next three days. * Do not lift anything heavier than 10 pounds for the next three days. * Do not engage in vigorous exercise or any sports for the next five days. * You may shower the day after your procedure, but do not immerse the area for three days. Cleanse the site gently with soap and water. SPECIAL CARE INSTRUCTIONS: * You may replace the pressure dressing or band-aid the morning after the procedure. * After your procedure, it is normal to have a small bruise or small lump at the site. Examine your site daily for any change in the bruise or lump, redness, swelling, drainage or numbness. Notify your doctor if any change. BLEEDING: * If there is a small amount of bleeding at the site, lie down and apply firm pressure with a clean cloth for ten minutes. When the bleeding stops, lie quietly keeping the procedure limb straight for six hours. Notify your doctor as soon as possible. * If the bleeding does not stop after ten minutes or if there is a large amount of bleeding or spurting, call [phone] immediately. Continue to lie down and hold firm pressure until help arrives. SKIN IRRITATION: * You may experience some redness and/or swelling in the area where radiation was administered. If any skin irritation occurs, please contact your family physician. FOLLOW UP VISIT: Keep any scheduled doctor appointments. Pending Studies at Discharge: No Stand-Alone Forms: [facility] Medications and DC Order Prescriptions: Continued oxycodone 5 mg tablet 5 mg PO Q8H PRN (Reason: Pain) Qty: 60 RF: 0 polyethylene glycol 3350 [Miralax] 17 gram powder in packet 17 g PO BID PRN (Reason: Constipation) RF: 0 nitroglycerin [Nitrostat] 0.4 mg Tablet, Sublingual 0.4 mg sublingual UD PRN (Reason: Chest Pain) RF: 0 atorvastatin 40 mg tablet 40 mg PO DAILY@2029 RF: 0 tamsulosin [Flomax] 0.4 mg Capsule 0.4 mg PO DAILY@2029 RF: 0 calcium acetate 667 mg Tablet 667 mg PO TIDM RF: 0 acetaminophen [Tylenol Extra Strength] 500 mg Tablet 1,000 mg PO Q6H PRN (Reason: Pain) RF: 0 ProRenal 8 mg iron-800 mcg-1,000 unit tablet 1 tab PO PM RF: 0 aspirin 81 mg Tablet 81 mg PO DAILY RF: 0 Discharge Orders: Discharge Order (Routine); Ordered 03/12/21 Ordered By: Aurora Hanna Admission Data Admit Date/Time: 03/09/21 18:15 Attending Provider: Aurora Hanna Admit Provider: Halley Altamirano Primary Care Provider: Suly House Other Providers: [facility] ; Halley Altamirano ; Bjorn Wheat ; Sangita Croft Other Interventions: Discharge Summary Assessment (RN) Last Done: 03/12/21 13:51
[2021-03-11] MEDS: ATORVASTATIN 40 MG TAB PO SCH (20:34)
[2021-03-11] MEDS: TAMSULOSIN HCL 0.4 MG CAP PO SCH (20:34)
[2021-03-12 06:42] LABS: Partial Thromboplastin Ratio 1.1; Partial Thromboplastin Time 29.2 Seconds (21.0-31.0)
[2021-03-12] MEDS: CALCIUM ACETATE 667 MG CAP/TAB PO SCH ×2 (08:30→11:58)
[2021-03-12] MEDS: ASPIRIN 81 MG ECTAB PO SCH (08:31)
--- NOTE | 2021-03-12 09:21 | Nephrology Progress Note ---
Date of Service March 12, 2021 Assessment & Plan (1) ESRD (end stage renal disease) on dialysis: Plan: * Last HD yesterday without complication. No acute indication for HD today * If discharge is anticipated, please have patient resume MWF outpatient HD at [facility]. I have called the unit and advised them to expect the patient on Sunday (2) Chest pain: Plan: * NSTEMI - cath reveals distal LAD lesion not amenable to intervention. Medical management advised. If recurrent angina, may consider scheduled oral nitrate. Currently takes nitrostat on PRN basis (3) Anemia due to chronic kidney disease: Plan: * No acute blood loss. RADHA has been provided w/ HD Admission and Anticipated Discharge Date Admission Date: March 09, 2021 Subjective Mr. Poon was evaluated in his hospital room this morning. He was last dialyzed yesterday without complication. He currently denies angina or dyspnea. He is anxious to return home Review of Systems Constitutional: + weakness; no fever Eyes: no problem reported Ear, Nose, Mouth, Throat: no problem reported Respiratory: no cough and no dyspnea Cardiovascular: no chest pain Gastrointestinal: no abdominal pain Musculoskeletal: no back pain Integumentary: no rash Neurologic: no falls and no confusion Physical Exam Constitutional: + frail appearing; no acute distress Eyes: PERRL, conjunctivae normal, anicteric sclerae ENMT: external ear and nose normal, oropharynx normal Neck: trachea midline Respiratory: normal respiratory effort, lungs clear to auscultation Cardiovascular: RRR, no murmur, no edema Extremities: + AV fistula (left BC AVF with thrill and bruit) Gastrointestinal (Abdomen): normal bowel sounds, soft, nontender, no hepatosplenomegaly Musculoskeletal: Extremities: extremities normal to inspection Skin: no rashes, warm and dry Neurologic: moves all extremities and awake Psychiatric: A+Ox3, euthymic affect Results & Data ([facility]) Vital Signs (Past 12 Hours) Vital Signs Temp Pulse Pulse Pulse Resp BP Pulse Ox 03/12/21 08:03 82 03/12/21 07:05 36.5 C 84 20 110/62 95 03/12/21 03:48 36.8 C 83 22 107/63 98 03/11/21 23:01 36.9 C 98 H 17 98/55 L 93 PG Care Time/CCT Total # of Minutes Spent Total Time Spent with Patient: Total time spent is greater than 50% in coord ination of care (as documented) at patient's floor/unit and/or counseling patient: Coding Level of Care Code 61699 Subseq Hosp Care Lvl 3 Diagnoses ESRD (end stage renal disease) on dialysis N18.6; Z99.2 Chest pain R07.9 Chest pain type: unspecified Anemia due to chronic kidney disease N18.9; D63.1 (1) Chest pain Chest pain type: unspecified Qualified Code(s): R07.9 - Chest pain, unspecified
[2021-03-12 11:34] VITALS: BP 96/59; TEMP 98.1; O2SAT 91
[2021-03-12 13:53] VITALS: PULSE 98
== END 2021-03-12 15:35 | disposition home or self-care (01) | DRG 280 ==
LOC: ED 12:08 → SUATTDRO 18:15 → 2N 18:15 → 2S 03-11 10:45
PROC: CLB.CCG (2021-03-11 08:00)
DX: I13.2 Hypertensive heart and chronic kidney disease with heart failure and with stage 5 chronic kidney disease, or end stage renal disease; N18.6 End stage renal disease; D63.1 Anemia in chronic kidney disease; I21.4 Non-ST elevation (NSTEMI) myocardial infarction; Z95.0 Presence of cardiac pacemaker; Z66 Do not resuscitate; I25.729 Atherosclerosis of autologous artery coronary artery bypass graft(s) with unspecified angina pectoris; Z95.3 Presence of xenogenic heart valve; Z95.1 Presence of aortocoronary bypass graft; N40.0 Benign prostatic hyperplasia without lower urinary tract symptoms; Z99.2 Dependence on renal dialysis; I50.9 Heart failure, unspecified; I25.5 Ischemic cardiomyopathy

== ENCOUNTER 2021-09-15 12:39 | Inpatient (IN) ==
--- NOTE | 2021-09-15 12:59 | XRay Report ---
XR chest 1V portable CLINICAL HISTORY: Chest Pain. COMPARISON STUDY: 03/09/2021 TECHNIQUE: 1 view of the chest FINDINGS: Single frontal view of the chest demonstrates the heart to be moderately enlarged with permanent card iac pacer in place. Compared to previous study, there is evidence for central vascular congestion and small to moderate size right pleural effusion. Small left pleural effusion cannot be excluded. The u pper lungs are clear . There is no peripheral interstitial edema present. There is no acute osseous p athology. IMPRESSION: 1. Cardiomegaly with central vascular congestion and right pleural effusion characteristic of cardiac decompensation and early congestive heart failure. ACT 112: Negative or not required by law. Electronically signed by: Ceferino Acosta M.D. 09/15/2021 12:58 PM
--- NOTE | 2021-09-15 13:32 | CT Scan Report ---
CT head/brain wo con CLINICAL HISTORY: ams, ?sepsis Technique: Contiguous axial CT images of the head were acquired from the base of the skull to the morales fany without intravenous contrast administration. Images were viewed in brain, subdural and bone [employer]. Automated dose lowering techniques and/or adjustment according to patient size were utilized for this exam. Comparison: Comparison is made to CT head 11/19/2019 Findings: Areas of decreased attenuation are present in the periventricular and subcortical white matter bilate rally consistent with small vessel ischemic disease. Generalized cerebral atrophy with commensurate e nlargement of the ventricles, sulci, and cisterns is also present. There is no acute intracranial hem orrhage or evidence of acute territorial infarction. No shift of the midline structures, mass effect, or extra-axial abnormalities are shown. Atherosclerotic calcifications are present in the intracran ial segments of the internal carotid arteries. Imaged portions of the paranasal sinuses and mastoid air cells are clear. The orbits appear normal. There are no acute fractures of the calvaria or scalp swelling. Rightward septal deviation is seen. Impression: No acute intracranial hemorrhage, no evidence of acute territorial infarction or other acute intracra nial disease process. ACT 112: Negative or not required by law. Electronically signed by: Ricci Salguero M.D. 09/15/2021 1:30 PM
[2021-09-15 13:41] LABS: Mean Corpuscular Hgb Conc 32.3 g/dL (32-36)
--- NOTE | 2021-09-15 13:44 | CT Scan Report ---
CT abd pelvis wo con CLINICAL HISTORY: ams, ?sepsis . Patient on dialysis COMPARISON STUDY: 01/30/2020 CT DOSE: 1403.87 mGy.cm TECHNIQUE: Standard CT of the Abdomen and Pelvis was performed without IV contrast. The patient did not receive oral contrast. A dose lowering technique was utilized adhering to the principles of ALEX [place] FINDINGS: Lung base: Compared to the previous examination, there has been continued interval increase in bilat eral pleural effusions which are now moderately large in size. There is again compressive atelectasis /collapse involving both lower lobes. The heart is again enlarged with previous cardiothoracic surger y, coronary artery calcification and pacer in place. Abdominal cavity: There is no evidence for abdominal mass, adenopathy or ascites. There is mild anasa rca. Liver: The liver is homogeneous in attenuation on these limited noncontrast images.. Spleen: The spleen is homogeneous in attenuation on these limited noncontrast images. Splenic artery calcification is present. Pancreas: There is again atrophy of the pancreas. Gall Bladder: There is again evidence for cholelithiasis with no CT evidence for acute cholecystitis. Adrenal glands: The adrenal glands are normal in size and attenuation on these limited noncontrast im ages. Kidneys: There is again bilateral renal cortical atrophy, left greater than right. Heart calcified le ft renal cyst is again seen. There is no evidence for gross renal mass, calculus or hydronephrosis bi laterally. Bowel: The bowel loops are normally placed within the abdomen and pelvis without evidence for dilatat ion or obstruction. There is no evidence for mass lesion. There is sigmoid diverticulosis without jackson dence for diverticulitis. There are no inflammatory changes present. There is no evidence for free ai r. There is no evidence for an inflamed appendix. Bladder: There is no evidence for focal bladder wall thickening, calculus or diverticulum. There is d iffuse thickening of the bladder wall characteristic of chronic bladder outlet obstruction. : There is no evidence for pelvic mass or adenopathy. The prostate is mildly enlarged. Vasculature: There is fusiform dilatation of the abdominal aorta with atherosclerosis and ectasia pre sent. No saccular aneurysm is identified. Osseous structures: There is no acute osseous pathology. Lungs are osteopenic with degenerative galeas es seen within the spine. IMPRESSION: 1. Compared to previous study, there is increasing bilateral pleural effusions and bilateral lower lo be atelectasis/collapse. 2. No evidence for acute intra-abdominal or pelvic abnormality on these limited noncontrast images. 3. Diverticulosis without evidence for diverticulitis. 4. Additional nonacute findings are again seen as delineated above. ACT 112: Negative or not required by law. Electronically signed by: Ceferino Acosta M.D. 09/15/2021 1:42 PM
[2021-09-15 13:50] LABS: Hematocrit (blood only) 38.7 % (42-52); Hemoglobin 12.5 g/dL (14.0-18.0); Mean Corpuscular Hemoglobin 25.9 pg (25-34); Mean Corpuscular Volume 80.1 fL (80-100); RDW Coefficient of Variation 18.8 % (11.5-14.5); RDW Standard Deviation 53.4 fL (36.4-46.3); Red Blood Count 4.83 M/uL (4.7-6.1); White Blood Count 5.29 K/uL (4.8-10.8)
--- NOTE | 2021-09-15 13:56 | Emergency Department Note ---
Impression & Plan Generalized weakness, Elevated troponin, Confusion, End-stage renal disease on hemodialysis, Bilateral pleural effusion ED Provider Note NAME: NICK NELSON AGE: 86 SEX: M ARRIVES VIA: Ambulance INFORMANT: Patient ED PROVIDER(S): Mark Reeder MD CHIEF COMPLAINT: Weakness, confusion. PLAN: Disposition: Admit MEDICAL DECISION MAKING: The patient is a pleasant 86-year-old gentleman with a past medical history of end-stage renal disease on hemodialysis, CHF, hypertension who presents to the emergency department from home for concern of worsening confusion over the past 2 weeks with new generalized weakness where he was unable to get out of bed this morning and note of hypoxia per his home [employer] evaluation where his O2 saturation was in the 80s on room air. The patient was placed on high flow oxygen initially and titrated down to nasal cannula. Patient is a poor historian but is alert and oriented to self and place and denies any particular symptoms other than admitting that he feels fatigued. He did complete dialysis yesterday. The patient take oxycodone for chronic pain but the patient and his deny him taking it yesterday or today. The patient's does report that she he does urinate sometimes wetting his brief. On arrival the patient is acute on chronically ill-appearing no acute distress, afebrile with stable vital signs. 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 He has 1+ bilateral lower extremity pitting edema. He has diminished breath sounds at the bases bilaterally. He has generalized weakness throughout without focal extremity weakness. EKG is paced. Chest x-ray demonstrates vascular congestion and bilateral pleural effusions, right greater than left. WBC and platelets within normal limits. H/H improved from recent. Chemistry without metabolic acidosis. Creatinine 3.4 in the setting of the patient's end- stage renal disease. Lactic acid 1.3, within normal limits. LFTs are unremarkable. Troponin 0.08, marginally elevated in the setting of the patient's end-stage renal disease. Lipase is not elevated. Covid-19 RNA, NAAT negative. CT of the head is negative for acute process. CT of the abdomen pelvis further characterizes bilateral pleural effusions which have progressed. Otherwise there is no intra-abdominal acute process. Given the patient's generalized weakness and confusion he and his agree with plan for admission for further management. Triage Nursing notes reviewed and agree them. Prior medical records reviewed Vital Signs: reviewed and remarkable for no significant abnormalities Differential diagnosis: Infection, dehydration, metabolic abnormality, hypo/hyperglycemia, electrolyte disturbance, anemia, hypoxia, cardiac sources, intracerebral event, toxicologic, neurologic, as well as other pathologies. ER treatment provided: See below. Diagnostics interpreted by me: ECG: Atrial sensed ventricular paced rhythm, 81 bpm, PSVCs, no overt acute is chemia. Cardiac Monitoring: An order for continuous cardiac monitoring was placed and demonstrated Atrial sensed ventricular paced rhythm, 81 bpm, PSVCs. Laboratory studies: See below Imaging studies: See below Consultation(s): Case was discussed with Dr. Solis, [facility] hospitalist who will evaluate the patient for admission. HPI: The patient is a pleasant 86-year-old gentleman with a past medical history of end-stage renal disease on hemodialysis, CHF, hypertension who presents emergency department from home for concern of worsening confusion over the past 2 weeks with new generalized weakness where he was unable to get out of bed this morning and note of hypoxia per his home [employer] evaluation where his O2 saturation was in the 80s on room air. The patient was placed on high flow oxygen initially and titrated down to nasal cannula. Patient is a poor historian but is alert and oriented to self and place and denies any particular symptoms other than admitting that he feels fatigued. He did complete dialysis yesterday. The patient take oxycodone for chronic pain but the patient and his deny him taking it yesterday or today. The patient's does report that she he does urinate sometimes wetting his brief. ROS: See above HPI for pertinent positives & negatives. A total of 10 systems reviewed and were otherwise negative. VITALS:See Below PHYSICAL EXAMINATION: GENERAL: Mild somnolence but awake/alert to voice. Chronically ill-appearing, in no distress HENT: Normocephalic, atraumatic. Oropharynx unremarkable. EYES: Normal conjunctiva. Sclera non-icteric. NECK: Supple. No nuchal rigidity. FROM. No JVD. RESPIRATORY: Diminished breath sounds at the bases bilaterally. CARDIAC: Regular rate, normal rhythm. Extremities warm and well perfused. Pulses equal. LUE AV fistula with palpable thrill. ABDOMEN: Soft, non-distended. No tenderness to palpation. No rebound or guarding. No masses. RECTAL: Deferred. MUSCULOSKELETAL: Chest examination reveals no tenderness. The back is symmetrical on inspection without obvious abnormality. There is no CVA tenderness to palpation. No joint edema. LOWER EXTREMITIES: Calves are equal size bilaterally and non-tender. 1+ BLE edema. No discoloration. NEURO: Generalized weakness throughout. No focal sensory or motor deficits noted. AXO to self, place, situation. SKIN: No rash or jaundice noted. Mark Reeder MD Past Med/Surg History Medical History Anemia 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 ASCVD (arteriosclerotic cardiovascular disease) BPH (benign prostatic hyperplasia) Bullous pemphigoid Chest pain Dialysis patient Dyslipidemia Elevated troponin Elevated troponin ESRD (end stage renal disease) on dialysis ESRD on dialysis HTN (hypertension) Pacemaker Pacemaker Renal calculi Surgical History Aortic valve replaced H/O inguinal hernia repair History of cataract surgery History of tonsillectomy Hx of CABG Family History Other Coronary heart disease Hypertension Stroke Social History Smoking Status: Never smoker Second Hand Exposure: No; Hx Alcohol Use: No Hx Substance Use: No Preferred Language: Latvian Communication Ability: Effective Shelter Advocate Required: No Beliefs That Will Affect Care: None marital status: Current Living Situation: Spouse Current Living Situation Comment: apartment current occupational status: retired Feels Safe at Home: Yes Assistive Devices: Glasses and Hearing Aid - Bilateral Allergies Allergies Allergy/AdvReac Type Severity Reaction Status Date / Time No Known Drug Allergies Allergy Unknown . Verified 09/15/21 15:10 Home Meds Home Medications Medication Instructions Recorded Confirmed Colace 100 mg PO BID 09/15/21 09/15/21 Ensure Apple 1 ea PO DAILY 09/15/21 09/15/21 PhosLo 667 mg PO TIDM 09/15/21 09/15/21 acetaminophen 500 mg tablet 1,500 mg PO HS 09/15/21 09/15/21 (Tylenol Extra Strength) atorvastatin 40 mg tablet 40 mg PO HS 09/15/21 09/15/21 cephalexin 500 mg capsule 500 mg PO BID 09/15/21 09/15/21 loperamide 2 mg PO BID PRN 09/15/21 09/15/21 mirtazapine 15 mg tablet 30 mg PO HS 09/15/21 09/15/21 nitroglycerin 0.4 mg sublingual 0.4 mg SUBLINGUAL DIRECTED PRN 09/15/21 09/15/21 tablet (Nitrostat) oxycodone 5 mg tablet 5 mg PO Q4H PRN 09/15/21 09/15/21 polyethylene glycol 3350 17 gram 17 g PO DAILY PRN 09/15/21 09/15/21 oral powder packet (Miralax) Results & Data (ED) Vital Signs Vital Signs - 24 hr 09/15/21 12:50 09/15/21 12:51 09/15/21 13:00 Temperature 36.6 C Temperature Source Oral Pulse Rate 75 77 64 Pulse Rate from SpO2 Sensor 74 63 Respiratory Rate 12 22 21 Blood Pressure 111/55 L Blood Pressure Mean 73 Pulse Oximetry 90 97 97 Oxygen Delivery Method Oxymask Oxygen Flow Rate 15 Sepsis Recent Fever Within 48 Hours No Sepsis New/Unexplained Change in Mental Status Yes Sepsis Action Taken by Nursing Physician Notified 09/15/21 13:01 09/15/21 13:13 09/15/21 13:14 Temperature Temperature Source Pulse Rate 65 Pulse Rate from SpO2 Sensor 65 Respiratory Rate 23 Blood Pressure 95/59 L Blood Pressure Mean 71 Pulse Oximetry 97 100 Oxygen Delivery Method Oxymask Oxygen Flow Rate 2 Sepsis Recent Fever Within 48 Hours Sepsis New/Unexplained Change in Mental Status Sepsis Action Taken by Nursing 09/15/21 13:30 09/15/21 13:32 09/15/21 14:00 Temperature Temperature Source Pulse Rate 80 69 65 Pulse Rate from SpO2 Sensor 80 66 65 Respiratory Rate 19 16 18 Blood Pressure 119/55 L 111/49 L Blood Pressure Mean 76 69 Pulse Oximetry 100 100 100 Oxygen Delivery Method Oxymask Oxygen Flow Rate 2 Sepsis Recent Fever Within 48 Hours Sepsis New/Unexplained Change in Mental Status Sepsis Action Taken by Nursing 09/15/21 14:30 09/15/21 15:00 09/15/21 15:30 Temperature Temperature Source Pulse Rate 68 70 64 Pulse Rate from SpO2 Sensor 64 Respiratory Rate 18 20 20 Blood Pressure 108/46 L 113/51 L 100/47 L Blood Pressure Mean 66 71 64 Pulse Oximetry 100 100 100 Oxygen Delivery Method Oxymask Oxyhood Oxygen Flow Rate 2 2 Sepsis Recent Fever Within 48 Hours Sepsis New/Unexplained Change in Mental Status Sepsis Action Taken by Nursing Laboratory Data Attestation: I reviewed the patient's lab results. Result diagrams: 09/15/21 13:31 09/15/21 13:53 Lab Results 09/15/21 09/15/21 09/15/21 Range/Units 13:00 13:00 13:00 WBC (4.8-10.8) K/uL RBC (4.7-6.1) M/uL Hgb (14.0-18.0) g/dL Hct (42-52) % MCV (80-100) fL MCH (25-34) pg MCHC (32-36) g/dL RDW Std Deviation (36.4-46.3) fL RDW Coeff of Gill (11.5-14.5) % Plt Count (130-400) K/uL Immature Gran % (Auto) % Neut % (Auto) % Lymph % (Auto) % [place] % (Auto) % Eos % (Auto) % Baso % (Auto) % Neut # (Auto) (1.4-6.5) K/uL Lymph # (Auto) (1.2-3.4) K/uL [place] # (Auto) (0.11-0.59) K/uL Eos # (Auto) (0-0.5) K/uL Baso # (Auto) (0-0.2) K/uL Immature Gran # (Auto) (0.00-0.02) K/uL Platelet Estimate (Normal) Anisocytosis Target Cells PT Cancelled INR Cancelled Sodium Cancelled Potassium Cancelled Chloride Cancelled Carbon Dioxide Cancelled Anion Gap Cancelled BUN Cancelled Creatinine Cancelled Est Cr Clr Drug Dosing Cancelled Est GFR ( Amer) Cancelled Est GFR (Non-Af Amer) Cancelled BUN/Creatinine Ratio Cancelled Glucose Cancelled Lactate (0.4-2.0) mmol/L Calcium Cancelled Phosphorus Cancelled Magnesium Cancelled Total Bilirubin Cancelled AST Cancelled ALT Cancelled Alkaline Phosphatase Cancelled Troponin I Cancelled B-Natriuretic Peptide Cancelled Total Protein Cancelled Albumin Cancelled Globulin Cancelled Albumin/Globulin Ratio Cancelled Lipase Cancelled Procalcitonin TSH SARS-CoV-2, RNA, NAAT (NEGATIVE) 09/15/21 09/15/21 09/15/21 Range/Units 13:00 13:00 13:00 WBC (4.8-10.8) K/uL RBC (4.7-6.1) M/uL Hgb (14.0-18.0) g/dL Hct (42-52) % MCV (80-100) fL MCH (25-34) pg MCHC (32-36) g/dL RDW Std Deviation (36.4-46.3) fL RDW Coeff of Gill (11.5-14.5) % Plt Count (130-400) K/uL Immature Gran % (Auto) % Neut % (Auto) % Lymph % (Auto) % [place] % (Auto) % Eos % (Auto) % Baso % (Auto) % Neut # (Auto) (1.4-6.5) K/uL Lymph # (Auto) (1.2-3.4) K/uL [place] # (Auto) (0.11-0.59) K/uL Eos # (Auto) (0-0.5) K/uL Baso # (Auto) (0-0.2) K/uL Immature Gran # (Auto) (0.00-0.02) K/uL Platelet Estimate (Normal) Anisocytosis Target Cells PT INR Sodium Potassium Chloride Carbon Dioxide Anion Gap BUN Creatinine Est Cr Clr Drug Dosing Est GFR ( Amer) Est GFR (Non-Af Amer) BUN/Creatinine Ratio Glucose Lactate 1.3 (0.4-2.0) mmol/L Calcium Phosphorus Magnesium Total Bilirubin AST ALT Alkaline Phosphatase Troponin I B-Natriuretic Peptide Total Protein Albumin Globulin Albumin/Globulin Ratio Lipase Procalcitonin Cancelled TSH Cancelled SARS-CoV-2, RNA, NAAT (NEGATIVE) 09/15/21 09/15/21 09/15/21 Range/Units 13:07 13:31 13:53 WBC 5.29 (4.8-10.8) K/uL RBC 4.83 (4.7-6.1) M/uL Hgb 12.5 L (14.0-18.0) g/dL Hct 38.7 L (42-52) % MCV 80.1 (80-100) fL MCH 25.9 (25-34) pg MCHC 32.3 (32-36) g/dL RDW Std Deviation 53.4 H (36.4-46.3) fL RDW Coeff of Gill 18.8 H (11.5-14.5) % Plt Count 141 (130-400) K/uL Immature Gran % (Auto) 0.2 % Neut % (Auto) 67.7 % Lymph % (Auto) 15.3 % [place] % (Auto) 11.5 % Eos % (Auto) 4.5 % Baso % (Auto) 0.8 % Neut # (Auto) 3.58 (1.4-6.5) K/uL Lymph # (Auto) 0.81 L (1.2-3.4) K/uL [place] # (Auto) 0.61 H (0.11-0.59) K/uL Eos # (Auto) 0.24 (0-0.5) K/uL Baso # (Auto) 0.04 (0-0.2) K/uL Immature Gran # (Auto) 0.01 (0.00-0.02) K/uL Platelet Estimate Decreased L (Normal) Anisocytosis Present Target Cells 1+ PT INR Sodium Potassium Chloride Carbon Dioxide Anion Gap BUN Creatinine Est Cr Clr Drug Dosing Est GFR ( Amer) Est GFR (Non-Af Amer) BUN/Creatinine Ratio Glucose Lactate (0.4-2.0) mmol/L Calcium Phosphorus Magnesium Total Bilirubin AST ALT Alkaline Phosphatase Troponin I B-Natriuretic Peptide Total Protein Albumin Globulin Albumin/Globulin Ratio Lipase Procalcitonin 0.57 H TSH SARS-CoV-2, RNA, NAAT NEGATIVE (NEGATIVE) 09/15/21 09/15/21 09/15/21 Range/Units 13:53 13:53 13:53 WBC (4.8-10.8) K/uL RBC (4.7-6.1) M/uL Hgb (14.0-18.0) g/dL Hct (42-52) % MCV (80-100) fL MCH (25-34) pg MCHC (32-36) g/dL RDW Std Deviation (36.4-46.3) fL RDW Coeff of Gill (11.5-14.5) % Plt Count (130-400) K/uL Immature Gran % (Auto) % Neut % (Auto) % Lymph % (Auto) % [place] % (Auto) % Eos % (Auto) % Baso % (Auto) % Neut # (Auto) (1.4-6.5) K/uL Lymph # (Auto) (1.2-3.4) K/uL [place] # (Auto) (0.11-0.59) K/uL Eos # (Auto) (0-0.5) K/uL Baso # (Auto) (0-0.2) K/uL Immature Gran # (Auto) (0.00-0.02) K/uL Platelet Estimate (Normal) Anisocytosis Target Cells PT INR Sodium 136 Potassium 3.8 Chloride 103 Carbon Dioxide 23 Anion Gap 10 BUN 19 Creatinine 3.41 H Est Cr Clr Drug Dosing 16.0 Est GFR ( Amer) 17.7 Est GFR (Non-Af Amer) 15.3 BUN/Creatinine Ratio 5.6 L Glucose 85 Lactate (0.4-2.0) mmol/L Calcium 8.9 Phosphorus 3.7 Magnesium 1.9 Total Bilirubin 0.6 AST 18 ALT 8 Alkaline Phosphatase 193 H Troponin I 0.08 H* B-Natriuretic Peptide 3164 H Total Protein 6.5 Albumin 3.5 Globulin 3.0 Albumin/Globulin Ratio 1.2 Lipase 20 Procalcitonin TSH 5.106 H SARS-CoV-2, RNA, NAAT (NEGATIVE) 09/15/21 Range/Units 13:53 WBC (4.8-10.8) K/uL RBC (4.7-6.1) M/uL Hgb (14.0-18.0) g/dL Hct (42-52) % MCV (80-100) fL MCH (25-34) pg MCHC (32-36) g/dL RDW Std Deviation (36.4-46.3) fL RDW Coeff of Gill (11.5-14.5) % Plt Count (130-400) K/uL Immature Gran % (Auto) % Neut % (Auto) % Lymph % (Auto) % [place] % (Auto) % Eos % (Auto) % Baso % (Auto) % Neut # (Auto) (1.4-6.5) K/uL Lymph # (Auto) (1.2-3.4) K/uL [place] # (Auto) (0.11-0.59) K/uL Eos # (Auto) (0-0.5) K/uL Baso # (Auto) (0-0.2) K/uL Immature Gran # (Auto) (0.00-0.02) K/uL Platelet Estimate (Normal) Anisocytosis Target Cells PT 15.6 H INR 1.5 H Sodium Potassium Chloride Carbon Dioxide Anion Gap BUN Creatinine Est Cr Clr Drug Dosing Est GFR ( Amer) Est GFR (Non-Af Amer) BUN/Creatinine Ratio Glucose Lactate (0.4-2.0) mmol/L Calcium Phosphorus Magnesium Total Bilirubin AST ALT Alkaline Phosphatase Troponin I B-Natriuretic Peptide Total Protein Albumin Globulin Albumin/Globulin Ratio Lipase Procalcitonin TSH SARS-CoV-2, RNA, NAAT (NEGATIVE) Administered Medications Ceftriaxone Sodium 2,000 mg/ (Dextrose) 70 mls @ 100 mls/hr IV Q24H [facility]; Protocol Stop: 09/22/21 18:59 Last Admin: 09/15/21 20:57 Dose: 100 mls/hr Documented by: [id number] Discontinued Medications Naloxone HCl (Naloxone Hcl 0.4 Mg/1 Ml Vial/Carp) 0.4 mg IV ONE ONE Stop: 09/15/21 18:52 Last Admin: 09/15/21 20:45 Dose: 0.4 mg Documented by: [id number] Imaging Data Radiologist's Impression: Chest X-Ray 09/15/21 12:41 XR chest 1V portable CLINICAL HISTORY: Chest Pain. COMPARISON STUDY: 03/09/2021 TECHNIQUE: 1 view of the chest FINDINGS: Single frontal view of the chest demonstrates the heart to be moderately enlarged with permanent cardiac pacer in place. Compared to previous study, there is evidence for central vascular congestion and small to moderate size right pleural effusion. Small left pleural effusion cannot be excluded. The upper lungs are clear . There is no peripheral interstitial edema present. There is no acute osseous pathology. IMPRESSION: 1. Cardiomegaly with central vascular congestion and right pleural effusion characteristic of cardiac decompensation and early congestive heart failure. ACT 112: Negative or not required by law. Electronically signed by: Ceferino Acosta M.D. 09/15/2021 12:58 PM Abdomen/Pelvis CT 09/15/21 12:52 CT abd pelvis wo con CLINICAL HISTORY: ams, ?sepsis . Patient on dialysis COMPARISON STUDY: 01/30/2020 CT DOSE: 1403.87 mGy.cm TECHNIQUE: Standard CT of the Abdomen and Pelvis was performed without IV contrast. The patient did not receive oral contrast. A dose lowering technique was utilized adhering to the principles of ALARA. FINDINGS: Lung base: Compared to the previous examination, there has been continued interval increase in bilateral pleural effusions which are now moderately large in size. There is again compressive atelectasis/collapse involving both lower lobes. The heart is again enlarged with previous cardiothoracic surgery, coronary artery calcification and pacer in place. Abdominal cavity: There is no evidence for abdominal mass, adenopathy or ascites. There is mild anasarca. Liver: The liver is homogeneous in attenuation on these limited noncontrast images.. Spleen: The spleen is homogeneous in attenuation on these limited noncontrast images. Splenic artery calcification is present. Pancreas: There is again atrophy of the pancreas. Gall Bladder: There is again evidence for cholelithiasis with no CT evidence for acute cholecystitis. Adrenal glands: The adrenal glands are normal in size and attenuation on these limited noncontrast images. Kidneys: There is again bilateral renal cortical atrophy, left greater than right. Heart calcified left renal cyst is again seen. There is no evidence for gross renal mass, calculus or hydronephrosis bilaterally. Bowel: The bowel loops are normally placed within the abdomen and pelvis without evidence for dilatation or obstruction. There is no evidence for mass lesion. There is sigmoid diverticulosis without evidence for diverticulitis. There are no inflammatory changes present. There is no evidence for free air. There is no evidence for an inflamed appendix. Bladder: There is no evidence for focal bladder wall thickening, calculus or diverticulum. There is diffuse thickening of the bladder wall characteristic of chronic bladder outlet obstruction. : There is no evidence for pelvic mass or adenopathy. The prostate is mildly enlarged. Vasculature: There is fusiform dilatation of the abdominal aorta with atherosclerosis and ectasia present. No saccular aneurysm is identified. Osseous structures: There is no acute osseous pathology. Lungs are osteopenic with degenerative changes seen within the spine. IMPRESSION: 1. Compared to previous study, there is increasing bilateral pleural effusions and bilateral lower lobe atelectasis/collapse. 2. No evidence for acute intra-abdominal or pelvic abnormality on these limited noncontrast images. 3. Diverticulosis without evidence for diverticulitis. 4. Additional nonacute findings are again seen as delineated above. ACT 112: Negative or not required by law. Electronically signed by: Ceferino Acosta M.D. 09/15/2021 1:[address] 09/15/21 12:53 CT head/brain wo con CLINICAL HISTORY: ams, ?sepsis Technique: Contiguous axial CT images of the head were acquired from the base of the skull to the vertex without intravenous contrast administration. Images were viewed in brain, subdural and bone windows. Automated dose lowering techniques and/or adjustment according to patient size were utilized for this exam. Comparison: Comparison is made to CT head 11/19/2019 Findings: Areas of decreased attenuation are present in the periventricular and subcortical white matter bilaterally consistent with small vessel ischemic disease. Generalized cerebral atrophy with commensurate enlargement of the ventricles, sulci, and cisterns is also present. There is no acute intracranial hemorrhage or evidence of acute territorial infarction. No shift of the midline structures, mass effect, or extra-axial abnormalities are shown. Atherosclerotic calcifications are present in the intracranial segments of the internal carotid arteries. Imaged portions of the paranasal sinuses and mastoid air cells are clear. The orbits appear normal. There are no acute fractures of the calvaria or scalp swelling. Rightward septal deviation is seen. Impression: No acute intracranial hemorrhage, no evidence of acute territorial infarction or other acute intracranial disease process. ACT 112: Negative or not required by law. Electronically signed by: Ricci Salguero M.D. 09/15/2021 1:30 PM Discharge Plan Visit Data Chief Complaint: Weakness Stated Complaint: SOB, CONFUSION ED Provider: Mark Reeder Discharge Problem: Generalized weakness, Elevated troponin, Confusion, End-stage renal disease on hemodialysis, Bilateral pleural effusion Patient Disposition: Admitted As Inpatient Discharge Instructions Interventions: ED Discharge Assessment Last Done: 09/15/21 17:14
[2021-09-15 13:57] LABS: Platelet Count 141 K/uL (130-400)
[2021-09-15 13:58] LABS: Anisocytosis Present; Basophils # (auto) 0.04 K/uL (0-0.2); Basophils % (auto) 0.8 %; Eosinophils # (auto) 0.24 K/uL (0-0.5); Eosinophils % (auto) 4.5 %; Immature Granulocytes # (auto) 0.01 K/uL (0.00-0.02); Immature Granulocytes % (auto) 0.2 %; Lymphocytes # (auto) 0.81 K/uL (1.2-3.4); Lymphocytes % (auto) 15.3 %; Monocytes # (auto) 0.61 K/uL (0.11-0.59); Monocytes % (auto) 11.5 %; Neutrophils # (auto) 3.58 K/uL (1.4-6.5); Neutrophils % (auto) 67.7 %; Platelet Estimate Decreased (Normal); Target Cells 1+
[2021-09-15 14:13] LABS: INR 1.5 (0.9-1.1); Prothrombin Time 15.6 Seconds (9.0-12.0)
[2021-09-15 14:35] LABS: Albumin Globulin Ratio 1.2 (0.9-2); Albumin Level 3.5 gm/dl (3.4-5.0); BUN Creatinine Ratio 5.6 (10-20); Bilirubin,Total 0.6 mg/dl (0.2-1.0); Calcium 8.9 mg/dl (8.5-10.1); Est GFR (African American) 17.7 ml/min; Est GFR (Non-African American) 15.3 ml/min; Magnesium 1.9 mg/dl (1.7-2.4); Phosphorus 3.7 mg/dl (2.5-4.9); Potassium 3.8 mmol/L (3.5-5.1); Total Protein 6.5 gm/dl (6.0-8.3)
--- NOTE | 2021-09-15 15:21 | History & Physical Report ---
Date of Service September 15, 2021 Assessment & Plan (1) Confusion: Plan: Acute metabolic encephalopathy Likely multifactorial secondary to cellulitis, opioid use, hypercarbia --CT head:No acute intracranial hemorrhage, no evidence of acute territorial infarction or other acute intracranial disease process. --VBG suggestive of Hypercarbia Hold Opioids, Mirtazapine Normal Ammonia level Give a dose of Narcan BiPAP as needed to help with Hypercarbia Neuro Checks Fall, aspiration precautions Consider neurology evaluation if needed Continue supplemental oxygen as needed NPO for now Check UA if patient still able to urinate Acute respiratory failure with hypoxia, hypercarbia B/L Pleural effusion Volume overload: Acute on chronic systolic CHF, end-stage renal disease on hemodialysis Imaging studies suggestive of worsening bilateral pleural effusion Patient is on Sunday hemodialysis Nephrology consulted to help with dialysis Monitor volume status closely Monitor I's and O's, daily weight Check ECHO Cardiology consulted as well Left leg cellulitis Blood Cultures pending Procalcitonin 0.57 Hold p.o. cephalexin Started on Rocephin, doxycycline Check venous Dopplers to rule out DVT Diarrhea --CT ABD: Compared to previous study, there is increasing bilateral pleural effusions and bilateral lower lobe atelectasis/collapse. No evidence for acute intra-abdominal or pelvic abnormality on these limited noncontrast images. Diverticulosis without evidence for diverticulitis. Hold stool softeners Stool studies to rule out infection--pending Chronic troponin elevation In setting of CHF, CKD Trend cardiac enzymes Generalized weakness H/O Falls Ambulate dysfunction Fall precautions PT OT when appropriate ESRD on HD Nephrology to help with dialysis management Valvular heart disease S/P AVR CAD S/P CAB Resume home medications as able Hyperlipidemia Resume statin as able DVT Px: Heparin SQ Code Status DNI/DNR History of Present Illness Chief Complaint: Confusion Primary Care Provider: [facility], Patient is an 86-year-old female with history of hypertension, hyperlipidemia, valvular heart disease S/P AVR, CAD S/P CABG, ischemic cardiomyopathy, end-stage renal disease on dialysis MWF, BPH, chronic anemia, symptomatic bradycardia, secondary hyperparathyroidism and other medical problems presents with history of confusion and generalized weakness which has been gradually worsening since 3 weeks duration. Patient unable to provide any history currently and is very lethargic. Most of the history is obtained from patient's at bedside, old records and ER physician. Patient's family states that patient refused to go to ED for further evaluation over the past 3 weeks as he was concerned that he will be placed in a snf. He was started on cephalexin for leg cellulitis by his PCP 3 days ago. Patient usually ambulates with a walker but for the past couple of days he is unable to ambulate and mostly sleeping. He was prescribed oxycodone for chronic pain secondary to arthritis but family informs that his last dose was about 1 week ago. Patient has chronic diarrhea as per family, which is slightly worse from baseline. Patient fell 3 weeks ago but no known history of head trauma, loss of consciousness as per family. Patient was evaluated by MANAGER CLIENT SUPPORT at home today and was found to be hypoxic in 80s and so was recommended to go to ED for further evaluation. No known history of chest pain, SOB, cough, fever, chills, headache, nausea, vomiting, abdominal pain, blood in stools, dysuria, hematuria. Allergies Allergy/AdvReac Type Severity Reaction Status Date / Time No Known Drug Allergies Allergy Unknown . Verified 09/15/21 15:10 Home Medications Medication Instructions Recorded Confirmed Type Colace 100 mg PO BID 09/15/21 09/15/21 History Ensure Apple 1 ea PO DAILY 09/15/21 09/15/21 History PhosLo 667 mg PO TIDM 09/15/21 09/15/21 History acetaminophen 500 mg tablet 1,500 mg PO HS 09/15/21 09/15/21 History (Tylenol Extra Strength) atorvastatin 40 mg tablet 40 mg PO HS 09/15/21 09/15/21 History cephalexin 500 mg capsule 500 mg PO BID 09/15/21 09/15/21 History loperamide 2 mg PO BID PRN 09/15/21 09/15/21 History mirtazapine 15 mg tablet 30 mg PO HS 09/15/21 09/15/21 History nitroglycerin 0.4 mg sublingual 0.4 mg SUBLINGUAL DIRECTED PRN 09/15/21 09/15/21 History tablet (Nitrostat) oxycodone 5 mg tablet 5 mg PO Q4H PRN 09/15/21 09/15/21 History polyethylene glycol 3350 17 gram 17 g PO DAILY PRN 09/15/21 09/15/21 History oral powder packet (Miralax) Past Med/Surg History Medical History Anemia 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 ASCVD (arteriosclerotic cardiovascular disease) BPH (benign prostatic hyperplasia) Bullous pemphigoid Chest pain Dialysis patient Dyslipidemia Elevated troponin Elevated troponin ESRD (end stage renal disease) on dialysis ESRD on dialysis HTN (hypertension) Pacemaker Pacemaker Renal calculi Surgical History Aortic valve replaced H/O inguinal hernia repair History of cataract surgery History of tonsillectomy Hx of CABG Family History Other Coronary heart disease Hypertension Stroke Social History Smoking Status: Never smoker Second Hand Exposure: No; Hx Alcohol Use: No Hx Substance Use: No Preferred Language: Serbian Communication Ability: Effective Ripening Room Attendant Required: No Beliefs That Will Affect Care: None marital status: Current Living Situation: Spouse Current Living Situation Comment: apartment current occupational status: retired Feels Safe at Home: Yes Assistive Devices: Glasses and Hearing Aid - Bilateral Review of Systems Review of Systems: Unobtainable due to reduced consciousness Physical Exam Physical Exam: Physical Exam: Vitals signs as noted above General Appearance:Moderately built and nourished, no apparent distress Head: normocephalic, Atraumatic Eyes: normal inspection, EOMI Neck: supple, Trachea midline Respiratory/Chest: Decreased breath sounds at bases, No accessory muscle use Cardiovascular: S1, S2, +murmur Abdomen/GI:Soft, Non tender, Bowel sounds present Extremities/Musculoskeletal:normal inspection, B/L Edema, LLE erythema Neurologic/Psych: Very Lethargic, grossly moves all extremities, unable to perform complete neuro exam Skin: normal color, warm Results & Data Results & Data ([facility]) Vital Signs (Past 12 Hours) Vital Signs Temp Pulse Resp BP Pulse Ox 09/15/21 14:30 68 18 108/46 L 100 09/15/21 14:00 65 18 111/49 L 100 09/15/21 13:32 69 16 119/55 L 100 09/15/21 13:30 80 19 100 09/15/21 13:14 95/59 L 09/15/21 13:13 65 23 100 09/15/21 13:01 97 09/15/21 13:00 64 21 97 09/15/21 12:51 36.6 C 77 22 111/55 L 97 09/15/21 12:50 75 12 90 Laboratory Results Short CBC 09/15/21 Range/Units 13:31 WBC 5.29 (4.8-10.8) K/uL Hgb 12.5 L (14.0-18.0) g/dL Hct 38.7 L (42-52) % Plt Count 141 (130-400) K/uL BMP 09/15/21 09/15/21 13:00 13:53 Sodium Cancelled 136 Potassium Cancelled 3.8 Chloride Cancelled 103 Carbon Dioxide Cancelled 23 BUN Cancelled 19 Creatinine Cancelled 3.41 H Glucose Cancelled 85 Calcium Cancelled 8.9 Cardiac Enzymes 09/15/21 09/15/21 Range/Units 13:00 13:53 Troponin I Cancelled 0.08 H* Liver Function 09/15/21 09/15/21 Range/Units 13:00 13:53 Total Bilirubin Cancelled 0.6 AST Cancelled 18 ALT Cancelled 8 Alkaline Phosphatase Cancelled 193 H Albumin Cancelled 3.5 Diagnostic Findings --CT Head:No acute intracranial hemorrhage, no evidence of acute territorial infarction or other acute intracranial disease process. --ACT ABD: Compared to previous study, there is increasing bilateral pleural effusions and bilateral lower lobe atelectasis/collapse. No evidence for acute intra-abdominal or pelvic abnormality on these limited noncontrast images. Diverticulosis without evidence for diverticulitis. ECG Additional Comments: EKG: Atrial paced rhythm, PVCs noted
[2021-09-15 18:03] LABS: Base Excess VBG -3.1 mEq/L; HCO3 VBG 26 mmol/L; Oxygen Saturation VBG < 60.0 %; PCO2 VBG 70 mmHg (38-50); PO2 VBG 30 mmHg
[2021-09-15] MEDS ORDERED: NITROGLYCERIN SL 0.4 MG/TAB TAB SL PRN ×2 (18:32)
[2021-09-15] MEDS ORDERED: ACETAMINOPHEN 325 MG TAB PO PRN (18:32)
[2021-09-15] MEDS ORDERED: ALBUTEROL 0.083% NEBU SOLN 3 ML VIAL NEB PRN (18:32)
[2021-09-15] MEDS ORDERED: POLYETHYLENE (MIRALAX) 17 GM PACK PO PRN (18:32)
[2021-09-15] MEDS ORDERED: NALOXONE HCL 0.4 MG/1 ML VIAL/CARP IV ONE (18:51)
[2021-09-15] MEDS: cefTRIAXone SODIUM 2,000 MG in DEXTROSE 5% 50 ML IV SCH (20:57)
[2021-09-15 21:06] LABS: Troponin I 0.08 ng/ml (0-0.04)
[2021-09-15] MEDS: HEPARIN SOD 5,000 UNIT/0.5 ML VIAL SQ SCH (21:06)
[2021-09-15] MEDS: ATORVASTATIN 40 MG TAB PO SCH (21:07)
[2021-09-15] MEDS: DOXYCYCLINE HYCLATE 100 MG in DEXTROSE 5% 100 ML IV SCH (21:28)
[2021-09-15 23:47] LABS: Appearance Urine Turbid (Clear); Blood Urine 3+ (Negative); Epithelial Cell Urine Auto >30 /lpf (0-5); Glucose Urine UA Negative (Negative); Ketones Urine Negative (Negative); Leukocyte Esterase Urine 3+ (Negative); Nitrite Urine Negative (Negative); Protein Urine 3+ (Negative); Specific Gravity Urine 1.017 (1.000-1.030); Urobilinogen Urine Negative (Negative); WBC Urine Automated >30 /hpf (0-5); pH Urine 6.5 (4.5-7.5)
[2021-09-15 23:56] LABS: Bilirubin Urine 1+ (Negative)
[2021-09-15 23:57] LABS: Color Urine Dark Yellow
[2021-09-16 00:06] LABS: Bacteria Urine Automated 2+ (Negative)
[2021-09-16 00:51] LABS: Base Excess ABG -3.5 mEq/L (-9-1.8); HCO3 ABG 24 mmol/L (19-24); Oxygen Saturation ABG 95.9 % (90-95); PCO2 ABG 53 mmHg (35-46); PO2 ABG 87 mmHg (80-95); pH ABG 7.27 (7.35-7.45)
[2021-09-16 00:53] LABS: Allen Test POS (Pos)
--- NOTE | 2021-09-16 06:25 | Electrocardiogram Report ---
Test Reason : Blood Pressure : / mmHG Vent. Rate : 081 BPM Atrial Rate : 081 BPM P-R Int : 110 ms QRS Dur : 164 ms QT Int : 484 ms P-R-T Axes : 013 -86 098 degrees QTc Int : 562 ms Poor data quality, interpretation may be adversely affected Atrial-sensed ventricular-paced rhythm with Premature supraventricular complexes Abnormal ECG When compared with ECG of 10-MAR-2021 07:25, Premature supraventricular complexes are now Present Vent. rate has increased BY 8 BPM Confirmed by Francesco Henriquez ([id number]) on 09/16/2021 6:24:39 AM Referred By: REFERRED SELF Confirmed By:Francesco Henriquez
[2021-09-16 06:29] LABS: Mean Corpuscular Hgb Conc 32.4 g/dL (32-36)
[2021-09-16 06:42] LABS: HCO3 ABG 23 mmol/L (19-24); Oxygen Saturation ABG 92.8 % (90-95); PCO2 ABG 47 mmHg (35-46); PO2 ABG 66 mmHg (80-95); pH ABG 7.31 (7.35-7.45)
[2021-09-16 06:44] LABS: Hematocrit (blood only) 33.9 % (42-52); Mean Corpuscular Volume 80.1 fL (80-100); RDW Coefficient of Variation 18.4 % (11.5-14.5); RDW Standard Deviation 52.1 fL (36.4-46.3); Red Blood Count 4.23 M/uL (4.7-6.1); White Blood Count 5.61 K/uL (4.8-10.8)
[2021-09-16 06:54] LABS: Albumin Globulin Ratio 1.2 (0.9-2); BUN Creatinine Ratio 5.6 (10-20); Bilirubin,Total 0.6 mg/dl (0.2-1.0); Calcium 8.6 mg/dl (8.5-10.1); Creatinine Clr Calc Pharmacy 13.8 ml/min; Est GFR (African American) 14.8 ml/min; Est GFR (Non-African American) 12.8 ml/min; Globulin 2.5 gm/dl (2.5-4.0); Magnesium 1.8 mg/dl (1.7-2.4); Phosphorus 3.8 mg/dl (2.5-4.9); Potassium 3.9 mmol/L (3.5-5.1); Total Protein 5.5 gm/dl (6.0-8.3)
[2021-09-16 06:56] LABS: Basophils # (auto) 0.02 K/uL (0-0.2); Basophils % (auto) 0.4 %; Eosinophils # (auto) 0.22 K/uL (0-0.5); Eosinophils % (auto) 3.9 %; Lymphocytes # (auto) 0.81 K/uL (1.2-3.4); Lymphocytes % (auto) 14.4 %; Monocytes # (auto) 0.67 K/uL (0.11-0.59); Monocytes % (auto) 11.9 %; Neutrophils # (auto) 3.89 K/uL (1.4-6.5); Neutrophils % (auto) 69.4 %; Platelet Count 134 K/uL (130-400); Platelet Estimate Decreased (Normal); Target Cells 1+
[2021-09-16 07:04] LABS: Allen Test Pos (Pos)
--- NOTE | 2021-09-16 07:36 | Ultrasound Report ---
BILATERAL LOWER EXTREMITY VENOUS DOPPLER CLINICAL HISTORY: Swelling, R/O DVT COMPARISON STUDY: No previous studies for comparison. TECHNIQUE: Sonography of the deep venous system of the bilateral lower extremities was performed. Co mpression and augmentation were evaluated. FINDINGS: Exam was suboptimal due to difficulty positioning. The bilateral common femoral, superficia l femoral and popliteal veins were compressible. Augmentation was normal. Flow was shown within the d eep calf vessels. IMPRESSION: Technically difficult exam but no evidence of deep venous thrombus within the bilateral l ower extremities. ACT 112: Negative or not required by law. Electronically signed by: Evan Maya M.D. 09/16/2021 7:35 AM
[2021-09-16] MEDS ORDERED: ENOXAPARIN INJ 40 MG/0.4 ML SYR SQ SCH (09:00)
[2021-09-16] MEDS: CALCIUM ACETATE 667 MG CAP/TAB PO SCH ×3 (09:12→17:56)
[2021-09-16] MEDS: DOXYCYCLINE HYCLATE 100 MG in DEXTROSE 5% 100 ML IV SCH ×2 (09:37→20:46)
[2021-09-16] MEDS: HEPARIN SOD 5,000 UNIT/0.5 ML VIAL SQ SCH ×2 (09:37→20:48)
--- NOTE | 2021-09-16 10:37 | Hospitalist Progress Note ---
Date of Service September 16, 2021 Assessment & Plan (1) Confusion: Plan: Acute metabolic encephalopathy Likely multifactorial secondary to cellulitis, UTI, opioid use, hypercarbia --CT head:No acute intracranial hemorrhage, no evidence of acute territorial infarction or other acute intracranial disease process. --VBG suggestive of Hypercarbia Hold Opioids, Mirtazapine Normal Ammonia level Narcan Given BiPAP Neuro Checks Fall, aspiration precautions Continue supplemental oxygen as needed NPO for now UA Positive UTI- Rocephin and Doxy Acute respiratory failure with hypoxia, hypercarbia B/L Pleural effusion Volume overload: Acute on chronic systolic CHF, end-stage renal disease on hemodialysis Imaging studies suggestive of worsening bilateral pleural effusion Patient is on Sunday hemodialysis Nephrology consulted to help with dialysis Monitor volume status closely Monitor I's and O's, daily weight Check ECHO Cardiology consulted as well Left leg cellulitis Blood Cultures pending-NGTD Procalcitonin 0.57 Hold p.o. cephalexin Started on Rocephin, doxycycline Dopplers neg for DVT Diarrhea --CT ABD: Compared to previous study, there is increasing bilateral pleural effusions and bilateral lower lobe atelectasis/collapse. No evidence for acute intra-abdominal or pelvic abnormality on these limited noncontrast images. Diverticulosis without evidence for diverticulitis. Hold stool softeners Stool studies to rule out infection--pending Chronic troponin elevation In setting of CHF, CKD Trend cardiac enzymes Generalized weakness H/O Falls Ambulate dysfunction Fall precautions PT OT when appropriate ESRD on HD Nephrology to help with dialysis management Valvular heart disease S/P AVR CAD S/P CABG Resume home medications as able Hyperlipidemia Resume statin as able DVT Px: Heparin SQ Code Status DNI/DNR ROS-Offers no reliable history, On BIPAP Physical Exam Gen-Somnolent, NAD, Afebrile, On Bipap Head-NCAT, EOMI, PERRLA, Anicteric Sclera, No Posterior Pharyngeal Erythema Neck-Supple, No JVD, No Thyromegaly, No Masses, No LAD, No Bruits Lungs-Clear to Auscultation Bilaterally, No Rales, No Rhonchi, No Wheezing, No Crepitus Chest-No S4, +S1, +S2, No S3, No Murmurs, No Rubs, No Gallops, No Ectopy Abdomen-Soft, Bowel Sounds Present, Non Tender, Non Distended, No Hepatomegaly, No Splenomegaly, No Palpable Masses, No Rebound, No Rigidity, No Guarding Musculoskeletal-Full Range of Motion Bilaterally, No CVAT Extremities-No Cyanosis, No Clubbing, No Edema Nuero-Cranial Nerves II-XII grossly intact, Motor WNL, DTRs WNL, Strength WNL, Non Focal Psych-Normal Mood Admission and Anticipated Discharge Date Admission Date: September 15, 2021 Results & Data Results & Data ([facility]) Vital Signs (Past 12 Hours) Vital Signs Temp Pulse Pulse Resp BP Pulse Ox 09/16/21 10:19 84 19 95 09/16/21 08:00 37.0 C 74 16 109/74 95 09/16/21 07:15 90 30 H 99 09/16/21 03:35 90 20 99 09/16/21 03:19 36.4 C L 77 20 102/66 99 09/16/21 01:00 99 H 21 98 09/16/21 00:58 97/49 L 09/15/21 23:06 36.4 C L 79 20 108/67 100 09/15/21 23:00 79
--- NOTE | 2021-09-16 11:59 | Nephrology Consultation ---
Date of Consultation September 16, 2021 Assessment & Plan (1) End-stage renal disease on hemodialysis: Mr. Javier Poon is an 86 year-old male with ESRD on IHD MWF at [facility]. HD via a well functioning AVF. Last HD treatment Sunday. Currently ~2.5 kg above EDW. BP chronically low but he tolerates dialysis and UF reasonably well. CXR with pulmonary vascular congestion and mild interstitial edema. Orders for dialysis today have been entered into the EHR and discussed with the dialysis nurse. Will attempt to challenge dry weight as tolerated. Unfortunately, clinical presentation largely related to opiates and hypercapnia. (2) Acute decompensated heart failure: UF today with HD as tolerated and adjust EDW during future dialysis treatments. (3) 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: Stable. No need for additional treatment at this time. (4) HTN (hypertension): All antihypertensive medications have been weaned off over the past year and BP remains low. Pain medications contributing. History of Present Illness Reason for Consultation: ESRD on HD Requesting Physician: Jasbir Zayas DO Attending Physician: Jasbir Zayas DO History of Present Illness Mr. Javier Poon is an 86-year-old male end-stage renal disease. Javier is on IHD at [facility]. Dialysis schedule is MWF. The patient's last HD treatment was Sunday. Rx has been 3 hrs 30 minutes on a 180 optiflux with Qb 450 / Qd 500. EDW has been ~80 kg. This has been adjusted over the past several months due to progressive weight loss. On Sunday, net UF was 2 kg. Javier left slightly below his EDW at 79.2 kg. His EDW 1 year ago was >90 kg. Unfortunately, Javier has suffered with increasing frailty and notably decreased functional status. On Sunday, Javier was seen by Dr. Garcia who discussed concerns with Javier and his family by phone. He had started a conversation regarding possible NH or rehab placement but Javier was very resistant. Dialysis has otherwise been uncomplicated. UF goals have been achieved and Javier completes full treatments. IDWG typically 1-4 kg. He presented to the ER at [facility] yesterday from home with mental status changes attributed to opiate use and hypercapnia. Javier was found to be volume overloaded. HD is being coordinated this AM. He was resting comfortably on BIPAP at the time of my assessment. He answered questions but remained slightly confused with very short and sometimes tangential responses. Javier has been on dialysis since 2011. 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 He also has a history of hydroureteronephrosis involving the right kidney. Past medical history is notable for hypertension, ASCVD with CABG x 4 in '08, ischemic cardiomyopathy with reduced systolic function, bioprosthetic AVR, dual- chamber pacemaker for symptomatic bradycardia, paroxysmal atrial fibrillation, and BPH. Allergies Allergy/AdvReac Type Severity Reaction Status Date / Time No Known Drug Allergies Allergy Unknown . Verified 09/15/21 15:10 Home Medications Medication Instructions Recorded Confirmed Type Colace 100 mg PO BID 09/15/21 09/15/21 History Ensure Apple 1 ea PO DAILY 09/15/21 09/15/21 History PhosLo 667 mg PO TIDM 09/15/21 09/15/21 History acetaminophen 500 mg tablet 1,500 mg PO HS 09/15/21 09/15/21 History (Tylenol Extra Strength) atorvastatin 40 mg tablet 40 mg PO HS 09/15/21 09/15/21 History cephalexin 500 mg capsule 500 mg PO BID 09/15/21 09/15/21 History loperamide 2 mg PO BID PRN 09/15/21 09/15/21 History mirtazapine 15 mg tablet 30 mg PO HS 09/15/21 09/15/21 History nitroglycerin 0.4 mg sublingual 0.4 mg SUBLINGUAL DIRECTED PRN 09/15/21 09/15/21 History tablet (Nitrostat) oxycodone 5 mg tablet 5 mg PO Q4H PRN 09/15/21 09/15/21 History polyethylene glycol 3350 17 gram 17 g PO DAILY PRN 09/15/21 09/15/21 History oral powder packet (Miralax) Patient History Medical History Anemia 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 ASCVD (arteriosclerotic cardiovascular disease) BPH (benign prostatic hyperplasia) Bullous pemphigoid Chest pain Dialysis patient Dyslipidemia Elevated troponin Elevated troponin ESRD (end stage renal disease) on dialysis ESRD on dialysis HTN (hypertension) Pacemaker Pacemaker Renal calculi Surgical History Aortic valve replaced H/O inguinal hernia repair History of cataract surgery History of tonsillectomy Hx of CABG Family History Other Coronary heart disease Hypertension Stroke Social History Smoking Status: Never smoker Second Hand Exposure: No; Hx Alcohol Use: No Hx Substance Use: No Preferred Language: Wolof Communication Ability: Unable Communication Ability Comment: Pt moans to stimuli Solution Consultant Required: No Beliefs That Will Affect Care: Cultural marital status: Current Living Situation: Spouse Current Living Situation Comment: apartment current occupational status: retired Other Information That Helps Us Care for You: No Feels Safe at Home: Yes Assistive Devices: Glasses and Hearing Aid - Bilateral Physical Exam Constitutional: + ill appearing and + frail appearing; no acute distress Eyes: no scleral abnormality and no corneal abnormality ENMT: NIPPV Neck: normal visual inspection and trachea midline Respiratory: normal respiratory effort Auscultation: lungs clear to au scultation bilaterally and + rales Cardiovascular: Rate/Rhythm: regular rate Heart Sounds: normal S1 and normal S2 Extremities: + AV fistula; no edema Musculoskeletal: Extremities: no cyanosis and no clubbing Skin: normal turgor; no lesions Neurologic: Motor/Sensory: no tremor and no asterixis Psychiatric: Orientation: alert, oriented to person and oriented to place Results & Data ([facility]) Vital Signs (Past 12 Hours) Vital Signs Temp Pulse Pulse Resp BP Pulse Ox 09/16/21 10:19 84 19 95 09/16/21 08:00 37.0 C 74 16 109/74 95 09/16/21 07:15 90 30 H 99 09/16/21 03:35 90 20 99 09/16/21 03:19 36.4 C L 77 20 102/66 99 09/16/21 01:00 99 H 21 98 09/16/21 00:58 97/49 L Laboratory Results Laboratory Results - last 24 hr 09/15/21 09/15/21 09/15/21 13:00 13:00 13:00 WBC RBC Hgb Hct MCV MCH MCHC RDW Std Deviation RDW Coeff of Gill Plt Count Immature Gran % (Auto) Neut % (Auto) Lymph % (Auto) [place] % (Auto) Eos % (Auto) Baso % (Auto) Neut # (Auto) Lymph # (Auto) [place] # (Auto) Eos # (Auto) Baso # (Auto) Immature Gran # (Auto) Platelet Estimate Anisocytosis Target Cells PT Cancelled INR Cancelled ABG pH ABG pCO2 ABG pO2 ABG HCO3 ABG O2 Saturation ABG Base Excess Carlos Manuel Test VBG pH VBG pCO2 VBG pO2 VBG HCO3 VBG O2 Saturation VBG Base Excess Barometric Pressure Oxygen Given Sodium Cancelled Potassium Cancelled Chloride Cancelled Carbon Dioxide Cancelled Anion Gap Cancelled BUN Cancelled Creatinine Cancelled Est Cr Clr Drug Dosing Cancelled Est GFR ( Amer) Cancelled Est GFR (Non-Af Amer) Cancelled BUN/Creatinine Ratio Cancelled Glucose Cancelled Lactate Calcium Cancelled Phosphorus Cancelled Magnesium Cancelled Total Bilirubin Cancelled AST Cancelled ALT Cancelled Alkaline Phosphatase Cancelled Ammonia Troponin I Cancelled B-Natriuretic Peptide Cancelled Total Protein Cancelled Albumin Cancelled Globulin Cancelled Albumin/Globulin Ratio Cancelled Lipase Cancelled Procalcitonin TSH Urine Color Urine Appearance Urine pH Ur Specific [place] Urine Protein Urine Glucose (UA) Urine Ketones Urine Blood Urine Nitrite Urine Bilirubin Urine Urobilinogen Ur Leukocyte Esterase Urine WBC (Auto) Urine RBC (Auto) U Hyaline Cast (Auto) U Epithel Cells (Auto) Urine Bacteria (Auto) Urine Yeast SARS-CoV-2, RNA, NAAT 09/15/21 09/15/21 09/15/21 13:00 13:00 13:00 WBC RBC Hgb Hct MCV MCH MCHC RDW Std Deviation RDW Coeff of Gill Plt Count Immature Gran % (Auto) Neut % (Auto) Lymph % (Auto) [place] % (Auto) Eos % (Auto) Baso % (Auto) Neut # (Auto) Lymph # (Auto) [place] # (Auto) Eos # (Auto) Baso # (Auto) Immature Gran # (Auto) Platelet Estimate Anisocytosis Target Cells PT INR ABG pH ABG pCO2 ABG pO2 ABG HCO3 ABG O2 Saturation ABG Base Excess Carlos Manuel Test VBG pH VBG pCO2 VBG pO2 VBG HCO3 VBG O2 Saturation VBG Base Excess Barometric Pressure Oxygen Given Sodium Potassium Chloride Carbon Dioxide Anion Gap BUN Creatinine Est Cr Clr Drug Dosing Est GFR ( Amer) Est GFR (Non-Af Amer) BUN/Creatinine Ratio Glucose Lactate 1.3 Calcium Phosphorus Magnesium Total Bilirubin AST ALT Alkaline Phosphatase Ammonia Troponin I B-Natriuretic Peptide Total Protein Albumin Globulin Albumin/Globulin Ratio Lipase Procalcitonin Cancelled TSH Cancelled Urine Color Urine Appearance Urine pH Ur Specific [place] Urine Protein Urine Glucose (UA) Urine Ketones Urine Blood Urine Nitrite Urine Bilirubin Urine Urobilinogen Ur Leukocyte Esterase Urine WBC (Auto) Urine RBC (Auto) U Hyaline Cast (Auto) U Epithel Cells (Auto) Urine Bacteria (Auto) Urine Yeast SARS-CoV-2, RNA, NAAT 09/15/21 09/15/21 09/15/21 13:07 13:31 13:53 WBC 5.29 RBC 4.83 Hgb 12.5 L Hct 38.7 L MCV 80.1 MCH 25.9 MCHC 32.3 RDW Std Deviation 53.4 H RDW Coeff of Gill 18.8 H Plt Count 141 Immature Gran % (Auto) 0.2 Neut % (Auto) 67.7 Lymph % (Auto) 15.3 [place] % (Auto) 11.5 Eos % (Auto) 4.5 Baso % (Auto) 0.8 Neut # (Auto) 3.58 Lymph # (Auto) 0.81 L [place] # (Auto) 0.61 H Eos # (Auto) 0.24 Baso # (Auto) 0.04 Immature Gran # (Auto) 0.01 Platelet Estimate Decreased L Anisocytosis Present Target Cells 1+ PT INR ABG pH ABG pCO2 ABG pO2 ABG HCO3 ABG O2 Saturation ABG Base Excess Carlos Manuel Test VBG pH VBG pCO2 VBG pO2 VBG HCO3 VBG O2 Saturation VBG Base Excess Barometric Pressure Oxygen Given Sodium Potassium Chloride Carbon Dioxide Anion Gap BUN Creatinine Est Cr Clr Drug Dosing Est GFR ( Amer) Est GFR (Non-Af Amer) BUN/Creatinine Ratio Glucose Lactate Calcium Phosphorus Magnesium Total Bilirubin AST ALT Alkaline Phosphatase Ammonia Troponin I B-Natriuretic Peptide Total Protein Albumin Globulin Albumin/Globulin Ratio Lipase Procalcitonin 0.57 H TSH Urine Color Urine Appearance Urine pH Ur Specific [place] Urine Protein Urine Glucose (UA) Urine Ketones Urine Blood Urine Nitrite Urine Bilirubin Urine Urobilinogen Ur Leukocyte Esterase Urine WBC (Auto) Urine RBC (Auto) U Hyaline Cast (Auto) U Epithel Cells (Auto) Urine Bacteria (Auto) Urine Yeast SARS-CoV-2, RNA, NAAT NEGATIVE 09/15/21 09/15/21 09/15/21 13:53 13:53 13:53 WBC RBC Hgb Hct MCV MCH MCHC RDW Std Deviation RDW Coeff of Gill Plt Count Immature Gran % (Auto) Neut % (Auto) Lymph % (Auto) [place] % (Auto) Eos % (Auto) Baso % (Auto) Neut # (Auto) Lymph # (Auto) [place] # (Auto) Eos # (Auto) Baso # (Auto) Immature Gran # (Auto) Platelet Estimate Anisocytosis Target Cells PT INR ABG pH ABG pCO2 ABG pO2 ABG HCO3 ABG O2 Saturation ABG Base Excess Carlos Manuel Test VBG pH VBG pCO2 VBG pO2 VBG HCO3 VBG O2 Saturation VBG Base Excess Barometric Pressure Oxygen Given Sodium 136 Potassium 3.8 Chloride 103 Carbon Dioxide 23 Anion Gap 10 BUN 19 Creatinine 3.41 H Est Cr Clr Drug Dosing 16.0 Est GFR ( Amer) 17.7 Est GFR (Non-Af Amer) 15.3 BUN/Creatinine Ratio 5.6 L Glucose 85 Lactate Calcium 8.9 Phosphorus 3.7 Magnesium 1.9 Total Bilirubin 0.6 AST 18 ALT 8 Alkaline Phosphatase 193 H Ammonia Troponin I 0.08 H* B-Natriuretic Peptide 3164 H Total Protein 6.5 Albumin 3.5 Globulin 3.0 Albumin/Globulin Ratio 1.2 Lipase 20 Procalcitonin TSH 5.106 H Urine Color Urine Appearance Urine pH Ur Specific [place] Urine Protein Urine Glucose (UA) Urine Ketones Urine Blood Urine Nitrite Urine Bilirubin Urine Urobilinogen Ur Leukocyte Esterase Urine WBC (Auto) Urine RBC (Auto) U Hyaline Cast (Auto) U Epithel Cells (Auto) Urine Bacteria (Auto) Urine Yeast SARS-CoV-2, RNA, NAAT 09/15/21 09/15/21 09/15/21 13:53 17:52 17:52 WBC RBC Hgb Hct MCV MCH MCHC RDW Std Deviation RDW Coeff of Gill Plt Count Immature Gran % (Auto) Neut % (Auto) Lymph % (Auto) [place] % (Auto) Eos % (Auto) Baso % (Auto) Neut # (Auto) Lymph # (Auto) [place] # (Auto) Eos # (Auto) Baso # (Auto) Immature Gran # (Auto) Platelet Estimate Anisocytosis Target Cells PT 15.6 H INR 1.5 H ABG pH ABG pCO2 ABG pO2 ABG HCO3 ABG O2 Saturation ABG Base Excess Carlos Manuel Test VBG pH 7.20 L VBG pCO2 70 H VBG pO2 30 VBG HCO3 26 VBG O2 Saturation < 60.0 VBG Base Excess -3.1 Barometric Pressure 738.7 Oxygen Given Sodium Potassium Chloride Carbon Dioxide Anion Gap BUN Creatinine Est Cr Clr Drug Dosing Est GFR ( Amer) Est GFR (Non-Af Amer) BUN/Creatinine Ratio Glucose Lactate Calcium Phosphorus Magnesium Total Bilirubin AST ALT Alkaline Phosphatase Ammonia 35.0 Troponin I B-Natriuretic Peptide Total Protein Albumin Globulin Albumin/Globulin Ratio Lipase Procalcitonin TSH Urine Color Urine Appearance Urine pH Ur Specific [place] Urine Protein Urine Glucose (UA) Urine Ketones Urine Blood Urine Nitrite Urine Bilirubin Urine Urobilinogen Ur Leukocyte Esterase Urine WBC (Auto) Urine RBC (Auto) U Hyaline Cast (Auto) U Epithel Cells (Auto) Urine Bacteria (Auto) Urine Yeast SARS-CoV-2, RNA, NAAT 09/15/21 09/15/21 09/16/21 22:42 23:30 00:36 WBC RBC Hgb Hct MCV MCH MCHC RDW Std Deviation RDW Coeff of Gill Plt Count Immature Gran % (Auto) Neut % (Auto) Lymph % (Auto) [place] % (Auto) Eos % (Auto) Baso % (Auto) Neut # (Auto) Lymph # (Auto) [place] # (Auto) Eos # (Auto) Baso # (Auto) Immature Gran # (Auto) Platelet Estimate Anisocytosis Target Cells PT INR ABG pH 7.27 L ABG pCO2 53 H ABG pO2 87 ABG HCO3 24 ABG O2 Saturation 95.9 H ABG Base Excess -3.5 Carlos Manuel Test POS VBG pH VBG pCO2 VBG pO2 VBG HCO3 VBG O2 Saturation VBG Base Excess Barometric Pressure 742.3 Oxygen Given CPAP Sodium Potassium Chloride Carbon Dioxide Anion Gap BUN Creatinine Est Cr Clr Drug Dosing Est GFR ( Amer) Est GFR (Non-Af Amer) BUN/Creatinine Ratio Glucose Lactate Calcium Phosphorus Magnesium Total Bilirubin AST ALT Alkaline Phosphatase Ammonia Troponin I 0.09 H* B-Natriuretic Peptide Total Protein Albumin Globulin Albumin/Globulin Ratio Lipase Procalcitonin TSH Urine Color Dark Yellow Urine Appearance Turbid A Urine pH 6.5 Ur Specific [place] 1.017 Urine Protein 3+ H Urine Glucose (UA) Negative Urine Ketones Negative Urine Blood 3+ H Urine Nitrite Negative Urine Bilirubin 1+ H Urine Urobilinogen Negative Ur Leukocyte Esterase 3+ H Urine WBC (Auto) >30 H Urine RBC (Auto) 5-10 H U Hyaline Cast (Auto) 1-5 U Epithel Cells (Auto) >30 H Urine Bacteria (Auto) 2+ H Urine Yeast Not Reportable SARS-CoV-2, RNA, NAAT 09/16/21 09/16/21 09/16/21 06:08 06:08 06:08 WBC 5.61 RBC 4.23 L Hgb 11.0 L Hct 33.9 L MCV 80.1 MCH 26.0 MCHC 32.4 RDW Std Deviation 52.1 H RDW Coeff of Gill 18.4 H Plt Count 134 Immature Gran % (Auto) 0.0 Neut % (Auto) 69.4 Lymph % (Auto) 14.4 [place] % (Auto) 11.9 Eos % (Auto) 3.9 Baso % (Auto) 0.4 Neut # (Auto) 3.89 Lymph # (Auto) 0.81 L [place] # (Auto) 0.67 H Eos # (Auto) 0.22 Baso # (Auto) 0.02 Immature Gran # (Auto) 0.00 Platelet Estimate Decreased L Anisocytosis Target Cells 1+ PT INR ABG pH ABG pCO2 ABG pO2 ABG HCO3 ABG O2 Saturation ABG Base Excess Carlos Manuel Test VBG pH VBG pCO2 VBG pO2 VBG HCO3 VBG O2 Saturation VBG Base Excess Barometric Pressure Oxygen Given Sodium 135 L Potassium 3.9 Chloride 103 Carbon Dioxide 22 Anion Gap 10 BUN 22 Creatinine 3.95 H D Est Cr Clr Drug Dosing 13.8 Est GFR ( Amer) 14.8 Est GFR (Non-Af Amer) 12.8 BUN/Creatinine Ratio 5.6 L Glucose 68 L Lactate Calcium 8.6 Phosphorus 3.8 Magnesium 1.8 Total Bilirubin 0.6 AST 12 L ALT 6 L Alkaline Phosphatase 161 H Ammonia Troponin I 0.09 H* B-Natriuretic Peptide Total Protein 5.5 L Albumin 3.0 L Globulin 2.5 Albumin/Globulin Ratio 1.2 Lipase Procalcitonin TSH Urine Color Urine Appearance Urine pH Ur Specific [place] Urine Protein Urine Glucose (UA) Urine Ketones Urine Blood Urine Nitrite Urine Bilirubin Urine Urobilinogen Ur Leukocyte Esterase Urine WBC (Auto) Urine RBC (Auto) U Hyaline Cast (Auto) U Epithel Cells (Auto) Urine Bacteria (Auto) Urine Yeast SARS-CoV-2, RNA, NAAT 09/16/21 06:14 WBC RBC Hgb Hct MCV MCH MCHC RDW Std Deviation RDW Coeff of Gill Plt Count Immature Gran % (Auto) Neut % (Auto) Lymph % (Auto) [place] % (Auto) Eos % (Auto) Baso % (Auto) Neut # (Auto) Lymph # (Auto) [place] # (Auto) Eos # (Auto) Baso # (Auto) Immature Gran # (Auto) Platelet Estimate Anisocytosis Target Cells PT INR ABG pH 7.31 L ABG pCO2 47 H ABG pO2 66 L ABG HCO3 23 ABG O2 Saturation 92.8 ABG Base Excess -3.0 Carlos Manuel Test Pos VBG pH VBG pCO2 VBG pO2 VBG HCO3 VBG O2 Saturation VBG Base Excess Barometric Pressure 743.6 Oxygen Given 2L BiPap Sodium Potassium Chloride Carbon Dioxide Anion Gap BUN Creatinine Est Cr Clr Drug Dosing Est GFR ( Amer) Est GFR (Non-Af Amer) BUN/Creatinine Ratio Glucose Lactate Calcium Phosphorus Magnesium Total Bilirubin AST ALT Alkaline Phosphatase Ammonia Troponin I B-Natriuretic Peptide Total Protein Albumin Globulin Albumin/Globulin Ratio Lipase Procalcitonin TSH Urine Color Urine Appearance Urine pH Ur Specific [place] Urine Protein Urine Glucose (UA) Urine Ketones Urine Blood Urine Nitrite Urine Bilirubin Urine Urobilinogen Ur Leukocyte Esterase Urine WBC (Auto) Urine RBC (Auto) U Hyaline Cast (Auto) U Epithel Cells (Auto) Urine Bacteria (Auto) Urine Yeast SARS-CoV-2, RNA, NAAT PG Care Time/CCT Total # of Minutes Spent Total Time Spent with Patient: Total time spent is greater than 50% in coordination of care (as documented) at patient's floor/unit and/or counseling patient: Coding Level of Care Code 41269 Inpt Consult Level 4 Diagnoses End-stage renal disease on hemodialysis N18.6; Z99.2 Acute decompensated heart failure I50.9 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 N18.6; D63.1 HTN (hypertension) I10
--- NOTE | 2021-09-16 13:16 | XCELERA ---
[id number]
--- NOTE | 2021-09-16 14:56 | Cardiology Consultation ---
Date of Consultation September 16, 2021 Assessment & Plan (1) Elevated troponin: (2) Acute decompensated heart failure: (3) Symptomatic bradycardia: (4) Pacemaker: (5) Aortic valve replaced: (6) ASCVD (arteriosclerotic cardiovascular disease): 1. Acute decompensated systolic heart failure: He is known to have severely reduced LV systolic function. He appears to have an element of pulmonary vascular congestion. While he has attended dialysis regularly, he may be losing lean body mass. His dry weight has been adjusted recently. He is scheduled for repeat dialysis today. His volume status will be controlled through dialysis. He is no longer on diuretic therapy. 2. Ischemic cardiomyopathy: Not currently on medical therapy due to intolerance. It seems that in the past he was on a standard regimen for systolic heart failure but these medications were discontinued due to hyp otension. This was suggestive poor prognosis. 3. Coronary disease: No current symptoms suggestive of coronary insufficiency or angina. He should continue on his atorvastatin and a daily aspirin 4. valvular heart disease: Normally functioning bioprosthetic aortic valve. Continue daily aspirin. He does have element of mitral regurgitation which is not severe. 5. Elevated troponin: Very mild. In the setting of his decompensated heart failure and end-stage renal disease I would not pursue any evaluation for worsening coronary disease. This is not apprenticeship representative of an acute coronary syn drome. 6. symptomatic bradycardia: Normally functioning dual-chamber permanent pacemaker. He meets criteria for upgrade of his device to a biventricular ICD. However, given his comorbidities and what appears to be a declining clinical course, a decision in this matter should be deferred. History of Present Illness Reason for Consultation: Cardiomyopathy Requesting Physician: rIma Attending Physician: Jasbir aZyas DO History of Present Illness the patient is an 86-year-old gentleman with an extensive cardiac history to include coronary artery disease status post surgical revascularization, aortic valve disease status post bioprosthetic AVR, symptomatic bradycardia status post dual-chamber pacemaker and an ischemic cardiomyopathy with a history of congesti ve heart failure. He also suffers from end-stage renal disease and has been on dialysis for 10 years. The patient was brought to the hospital on the advice of a visiting nurse. According to the patient's who was present for today's interview he has become more confused over the past several days. Yesterday morning he was also very weak and had difficulty getting out of bed or into his lift chair. When the visiting nurse came he was also confused and somnolent. In the emergency room he was felt to have hypercapnic respiratory failure. He was encephalopathic. He was also noted to be hypoxic and believed to have an element of pulmonary vascular congestion. According to the the patient is very sedentary. He sleeps for most of the day. He is generally able to ambulate with a walker and transfer out of bed into a chair. The patient did not report any current symptoms outside of some very mild right flank pain. He does not recall much of the events of yesterday. He does not currently described breathing difficulty but is using CPAP. No symptoms of chest pain currently. According to the patient's he is very anxious about leaving his home and being placed in a nursing facility. He apparently takes narcotics for relief of arthritis pain. According to the patient's he has a poor appetite and eats sporadically. He also seems to be noncompliant with his medications. While his medications are generally filled by the visiting nurses, the patient takes the pills that he wants and often skips medications. Allergies Allergy/AdvReac Type Severity Reaction Status Date / Time No Known Drug Allergies Allergy Unknown . Verified 09/15/21 15:10 Home Medications Medication Instructions Recorded Confirmed Type Colace 100 mg PO BID 09/15/21 09/15/21 History Ensure Apple 1 ea PO DAILY 09/15/21 09/15/21 History PhosLo 667 mg PO TIDM 09/15/21 09/15/21 History acetaminophen 500 mg tablet 1,500 mg PO HS 09/15/21 09/15/21 History (Tylenol Extra Strength) atorvastatin 40 mg tablet 40 mg PO HS 09/15/21 09/15/21 History cephalexin 500 mg capsule 500 mg PO BID 09/15/21 09/15/21 History loperamide 2 mg PO BID PRN 09/15/21 09/15/21 History mirtazapine 15 mg tablet 30 mg PO HS 09/15/21 09/15/21 History nitroglycerin 0.4 mg sublingual 0.4 mg SUBLINGUAL DIRECTED PRN 09/15/21 09/15/21 History tablet (Nitrostat) oxycodone 5 mg tablet 5 mg PO Q4H PRN 09/15/21 09/15/21 History polyethylene glycol 3350 17 gram 17 g PO DAILY PRN 09/15/21 09/15/21 History oral powder packet (Miralax) Patient History Medical History Anemia 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 ASCVD (arteriosclerotic cardiovascular disease) BPH (benign prostatic hyperplasia) Bullous pemphigoid Chest pain Dialysis patient Dyslipidemia Elevated troponin Elevated troponin ESRD (end stage renal disease) on dialysis ESRD on dialysis HTN (hypertension) Pacemaker Pacemaker Renal calculi Surgical History Aortic valve replaced H/O inguinal hernia repair History of cataract surgery History of tonsillectomy Hx of CABG Family History Other Coronary heart disease Hypertension Stroke Social History Smoking Status: Never smoker Second Hand Exposure: No; Hx Alcohol Use: No Hx Substance Use: No Preferred Language: Serbian Communication Ability: Impaired Communication Ability Comment: Pt moans to stimuli Amalgamator Required: No Beliefs That Will Affect Care: Cultural marital status: Current Living Situation: Spouse Current Living Situation Comment: apartment current occupational status: retired How many Children do You have: 3 Other Information That Helps Us Care for You: No Feels Safe at Home: Yes Assistive Devices: Walker Review of Systems Review of Systems: Per HPI. Difficult to obtain Physical Exam Physical Exam: The patient is alert and appeared oriented. It was difficult to communicate as the patient was on BiPAP and had difficulty speaking loudly. However, he did appear to answer questions appropriately. HEENT: Pupils are equal and reactive to light and accommodation. Extraocular movements are intact. The sclerae are anicteric. Neuro: Cranial nerves intact Lungs: Reduced breath sounds at the bases bilaterally. Normal respiratory effort. No expiratory wheezing. Cardiac: Heart demonstrates a regular rate and rhythm. Normal S1 and S2. Crescendo systolic murmur Pulses: The patient has palpable radial pulses bilaterally that are equal in intensity Extremities: There was no evidence of hypoperfusion. There is no cyanosis or clubbing. There is no edema. Skin: I did not appreciate any rashes on examination today. erythema noted on the left ankle. Results & Data ([facility]) Vital Signs (Past 12 Hours) Vital Signs Temp Pulse Pulse Resp BP Pulse Ox 09/16/21 12:24 36.5 C 82 16 132/65 96 09/16/21 10:19 84 19 95 09/16/21 08:00 37.0 C 74 16 109/74 95 09/16/21 07:15 90 30 H 99 09/16/21 03:35 90 20 99 09/16/21 03:19 36.4 C L 77 20 102/66 99 Laboratory Results Abnormal Lab Results 09/15/21 09/15/21 09/15/21 13:53 13:53 13:53 WBC RBC Hgb Hct MCV MCH MCHC RDW Std Deviation RDW Coeff of Gill Plt Count Immature Gran % (Auto) Neut % (Auto) Lymph % (Auto) [place] % (Auto) Eos % (Auto) Baso % (Auto) Neut # (Auto) Lymph # (Auto) [place] # (Auto) Eos # (Auto) Baso # (Auto) Immature Gran # (Auto) Platelet Estimate Target Cells ABG pH ABG pCO2 ABG pO2 ABG HCO3 ABG O2 Saturation ABG Base Excess Carlos Manuel Test VBG pH VBG pCO2 VBG pO2 VBG HCO3 VBG O2 Saturation VBG Base Excess Barometric Pressure Oxygen Given Sodium Potassium Chloride Carbon Dioxide Anion Gap BUN Creatinine Est Cr Clr Drug Dosing Est GFR ( Amer) Est GFR (Non-Af Amer) BUN/Creatinine Ratio Glucose Calcium Phosphorus Magnesium Total Bilirubin AST ALT Alkaline Phosphatase Ammonia Troponin I 0.08 H* Total Protein Albumin Globulin Albumin/Globulin Ratio Procalcitonin 0.57 H TSH 5.106 H Urine Color Urine Appearance Urine pH Ur Specific Aragon Urine Protein Urine Glucose (UA) Urine Ketones Urine Blood Urine Nitrite Urine Bilirubin Urine Urobilinogen Ur Leukocyte Esterase Urine WBC (Auto) Urine RBC (Auto) U Hyaline Cast (Auto) U Epithel Cells (Auto) Urine Bacteria (Auto) Urine Yeast 09/15/21 09/15/21 09/15/21 17:52 17:52 22:42 WBC RBC Hgb Hct MCV MCH MCHC RDW Std Deviation RDW Coeff of Gill Plt Count Immature Gran % (Auto) Neut % (Auto) Lymph % (Auto) [place] % (Auto) Eos % (Auto) Baso % (Auto) Neut # (Auto) Lymph # (Auto) [place] # (Auto) Eos # (Auto) Baso # (Auto) Immature Gran # (Auto) Platelet Estimate Target Cells ABG pH ABG pCO2 ABG pO2 ABG HCO3 ABG O2 Saturation ABG Base Excess Carlos Manuel Test VBG pH 7.20 L VBG pCO2 70 H VBG pO2 30 VBG HCO3 26 VBG O2 Saturation < 60.0 VBG Base Excess -3.1 Barometric Pressure 738.7 Oxygen Given Sodium Potassium Chloride Carbon Dioxide Anion Gap BUN Creatinine Est Cr Clr Drug Dosing Est GFR ( Amer) Est GFR (Non-Af Amer) BUN/Creatinine Ratio Glucose Calcium Phosphorus Magnesium Total Bilirubin AST ALT Alkaline Phosphatase Ammonia 35.0 Troponin I 0.09 H* Total Protein Albumin Globulin Albumin/Globulin Ratio Procalcitonin TSH Urine Color Urine Appearance Urine pH Ur Specific Aragon Urine Protein Urine Glucose (UA) Urine Ketones Urine Blood Urine Nitrite Urine Bilirubin Urine Urobilinogen Ur Leukocyte Esterase Urine WBC (Auto) Urine RBC (Auto) U Hyaline Cast (Auto) U Epithel Cells (Auto) Urine Bacteria (Auto) Urine Yeast 09/15/21 09/16/21 09/16/21 23:30 00:36 06:08 WBC 5.61 RBC 4.23 L Hgb 11.0 L Hct 33.9 L MCV 80.1 MCH 26.0 MCHC 32.4 RDW Std Deviation 52.1 H RDW Coeff of Gill 18.4 H Plt Count 134 Immature Gran % (Auto) 0.0 Neut % (Auto) 69.4 Lymph % (Auto) 14.4 [place] % (Auto) 11.9 Eos % (Auto) 3.9 Baso % (Auto) 0.4 Neut # (Auto) 3.89 Lymph # (Auto) 0.81 L [place] # (Auto) 0.67 H Eos # (Auto) 0.22 Baso # (Auto) 0.02 Immature Gran # (Auto) 0.00 Platelet Estimate Decreased L Target Cells 1+ ABG pH 7.27 L ABG pCO2 53 H ABG pO2 87 ABG HCO3 24 ABG O2 Saturation 95.9 H ABG Base Excess -3.5 Carlos Manuel Test POS VBG pH VBG pCO2 VBG pO2 VBG HCO3 VBG O2 Saturation VBG Base Excess Barometric Pressure 742.3 Oxygen Given CPAP Sodium Potassium Chloride Carbon Dioxide Anion Gap BUN Creatinine Est Cr Clr Drug Dosing Est GFR ( Amer) Est GFR (Non-Af Amer) BUN/Creatinine Ratio Glucose Calcium Phosphorus Magnesium Total Bilirubin AST ALT Alkaline Phosphatase Ammonia Troponin I Total Protein Albumin Globulin Albumin/Globulin Ratio Procalcitonin TSH Urine Color Dark Yellow Urine Appearance Turbid A Urine pH 6.5 Ur Specific Aragon 1.017 Urine Protein 3+ H Urine Glucose (UA) Negative Urine Ketones Negative Urine Blood 3+ H Urine Nitrite Negative Urine Bilirubin 1+ H Urine Urobilinogen Negative Ur Leukocyte Esterase 3+ H Urine WBC (Auto) >30 H Urine RBC (Auto) 5-10 H U Hyaline Cast (Auto) 1-5 U Epithel Cells (Auto) >30 H Urine Bacteria (Auto) 2+ H Urine Yeast Not Reportable 09/16/21 09/16/21 09/16/21 06:08 06:08 06:14 WBC RBC Hgb Hct MCV MCH MCHC RDW Std Deviation RDW Coeff of Gill Plt Count Immature Gran % (Auto) Neut % (Auto) Lymph % (Auto) [place] % (Auto) Eos % (Auto) Baso % (Auto) Neut # (Auto) Lymph # (Auto) [place] # (Auto) Eos # (Auto) Baso # (Auto) Immature Gran # (Auto) Platelet Estimate Target Cells ABG pH 7.31 L ABG pCO2 47 H ABG pO2 66 L ABG HCO3 23 ABG O2 Saturation 92.8 ABG Base Excess -3.0 Carlos Manuel Test Pos VBG pH VBG pCO2 VBG pO2 VBG HCO3 VBG O2 Saturation VBG Base Excess Barometric Pressure 743.6 Oxygen Given 2L BiPap Sodium 135 L Potassium 3.9 Chloride 103 Carbon Dioxide 22 Anion Gap 10 BUN 22 Creatinine 3.95 H D Est Cr Clr Drug Dosing 13.8 Est GFR ( Amer) 14.8 Est GFR (Non-Af Amer) 12.8 BUN/Creatinine Ratio 5.6 L Glucose 68 L Calcium 8.6 Phosphorus 3.8 Magnesium 1.8 Total Bilirubin 0.6 AST 12 L ALT 6 L Alkaline Phosphatase 161 H Ammonia Troponin I 0.09 H* Total Protein 5.5 L Albumin 3.0 L Globulin 2.5 Albumin/Globulin Ratio 1.2 Procalcitonin TSH Urine Color Urine Appearance Urine pH Ur Specific [place] Urine Protein Urine Glucose (UA) Urine Ketones Urine Blood Urine Nitrite Urine Bilirubin Urine Urobilinogen Ur Leukocyte Esterase Urine WBC (Auto) Urine RBC (Auto) U Hyaline Cast (Auto) U Epithel Cells (Auto) Urine Bacteria (Auto) Urine Yeast Diagnostic Findings Head CT did not reveal any acute intracranial process abdomen and pelvis CT revealed pleural effusions but no acute intra-abdominal process chest x-ray demonstrated right pleural effusion and pulmonary vascular congestion. I performed a complete device interrogation of his dual-chamber permanent pacemaker. Estimated longevity at 10 months. Normal sensing on both the atrial and ventricular leads. No recorded arrhythmias. Echocardiogram performed today revealed severely reduced LV systolic function with ejection fraction of 25%. Mild left ventricular dilation. Regional wall motion abnormalities. Normally functioning bioprosthetic aortic valve. Moderate mitral regurgitation. Elevated estimated pulmonary pressures of 40 50 mm of mercury PG Care Time/CCT Total # of Minutes Spent Total Time Spent with Patient: Total time spent is greater than 50% in coordination of care (as documented) at patient's floor/unit and/or counseling patient: Coding Level of Care Code 35854 Initial Inpt Care Lvl 3 Diagnoses Elevated troponin R77.8 Acute decompensated heart failure I50.9 Symptomatic bradycardia R00.1 Pacemaker Z95.0 Aortic valve replaced Z95.2 ASCVD (arteriosclerotic cardiovascular disease) I25.10
--- NOTE | 2021-09-16 18:57 | Electrocardiogram Report ---
Test Reason : Blood Pressure : / mmHG Vent. Rate : 075 BPM Atrial Rate : 075 BPM P-R Int : 216 ms QRS Dur : 182 ms QT Int : 512 ms P-R-T Axes : 005 -63 108 degrees QTc Int : 571 ms AV dual-paced rhythm with prolonged AV conduction with occasional atrial-paced complexes Abnormal ECG When compared with ECG of 15-SEP-2021 12:49, Premature supraventricular complexes are no longer Present Vent. rate has decreased BY 6 BPM Confirmed by Erasmo Mcwilliams ([id number]) on 09/16/2021 6:57:19 PM Referred By: REFERRED SELF Confirmed By:Juan Mcwilliams
[2021-09-16] MEDS: cefTRIAXone SODIUM 2,000 MG in DEXTROSE 5% 50 ML IV SCH (20:45)
[2021-09-16] MEDS: ATORVASTATIN 40 MG TAB PO SCH (20:48)
[2021-09-17 06:29] LABS: Mean Corpuscular Hgb Conc 31.6 g/dL (32-36)
[2021-09-17 06:43] LABS: Hematocrit (blood only) 37.4 % (42-52); Hemoglobin 11.8 g/dL (14.0-18.0); Mean Corpuscular Hemoglobin 25.7 pg (25-34); Mean Corpuscular Volume 81.5 fL (80-100); RDW Coefficient of Variation 18.5 % (11.5-14.5); RDW Standard Deviation 52.3 fL (36.4-46.3); Red Blood Count 4.59 M/uL (4.7-6.1); White Blood Count 5.67 K/uL (4.8-10.8)
[2021-09-17 06:53] LABS: Albumin Level 3.2 gm/dl (3.4-5.0); BUN Creatinine Ratio 4.4 (10-20); Bilirubin,Total 0.6 mg/dl (0.2-1.0); Creatinine Clr Calc Pharmacy 15.9 ml/min; Est GFR (African American) 19.4 ml/min; Est GFR (Non-African American) 16.8 ml/min; Globulin 3.2 gm/dl (2.5-4.0); Potassium 3.8 mmol/L (3.5-5.1); Total Protein 6.4 gm/dl (6.0-8.3)
[2021-09-17 06:57] LABS: Platelet Count 120 K/uL (130-400); Platelet Estimate Decreased (Normal)
[2021-09-17] MEDS: CALCIUM ACETATE 667 MG CAP/TAB PO SCH ×3 (07:59→16:42)
[2021-09-17] MEDS: DOXYCYCLINE HYCLATE 100 MG in DEXTROSE 5% 100 ML IV SCH ×2 (08:04→20:34)
[2021-09-17] MEDS ORDERED: GLUCOSE 40% GEL 15 GM TUBE PO PRN (08:24)
[2021-09-17] MEDS ORDERED: GLUCOSE 40% GEL 15 GM TUBE PO ONE (08:27)
[2021-09-17] MEDS: HEPARIN SOD 5,000 UNIT/0.5 ML VIAL SQ SCH ×2 (08:33→20:36)
[2021-09-17] MEDS ORDERED: GLUCOSE 10 TABS/TUBE PO ONE (08:34)
[2021-09-17] MEDS ORDERED: GLUCOSE 10 TABS/TUBE PO PRN (08:40)
--- NOTE | 2021-09-17 08:43 | Nephrology Progress Note ---
Date of Service September 17, 2021 Assessment & Plan (1) End-stage renal disease on hemodialysis: Plan: * Outpatient HD: MWF 3 hrs 30 minutes on a 180 optiflux with Qb 450 / Qd 500. EDW has been 80 kg * Volume status and electrolyte balance are acceptable. No acute indication for HD today (2) Acute decompensated heart failure: Plan: * Improved following 2800 cc UF on dialysis yesterday * Echo 09/16/21: LVEF 25 - 30%, mod MR, mod TR, mod L pleural effusion * Has pacemaker in place. Not a candidate for AICD due to frailty, comorbid illnesses (3) HTN (hypertension): Plan: * All antihypertensive medications have been weaned off over the past year and BP remains low. 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 No acute indication for RADHA at this time (5) Cystitis: Plan: * Gram negative UTI. Currently on IV Cefepime (6) Cellulitis: Plan: * LLE cellulitis. Currently on Doxycycline/Cefepime Admission and Anticipated Discharge Date Admission Date: September 15, 2021 Subjective Mr. Poon was evaluated in his hospital room this morning. He was dialyzed yesterday for 2800 cc UF. He voices no medical concerns this am Review of Systems Constitutional: + weakness; no fever Eyes: no problem reported Ear, Nose, Mouth, Throat: no problem reported Respiratory: no dyspnea Cardiovascular: no chest pain, no palpitations and no edema Gastrointestinal: no abdominal pain, no nausea, no vomiting and no diarrhea/loose stools Musculoskeletal: no back pain Integumentary: no rash Neurologic: no falls, no dizziness and no confusion Physical Exam Constitutional: not in distress Eyes: PERRL, conjunctivae normal, anicteric sclerae ENMT: external ear and nose normal, oropharynx normal Neck: trachea midline, no thyromegaly Respiratory: normal respiratory effort, lungs clear to auscultation Cardiovascular: RRR, no murmur, no edema Gastrointestinal (Abdomen): normal bowel sounds, soft, nontender, no hepatosplenomegaly Skin: no rashes, warm and dry Neurologic: awake and + confused Results & Data ([facility]) Vital Signs (Past 12 Hours) Vital Signs Temp Pulse Resp BP Pulse Ox 09/17/21 08:19 36.7 C 84 22 99/48 L 09/17/21 02:54 36.9 C 63 18 104/58 L 100 09/16/21 22:00 36.6 C 75 16 112/52 L 100 Laboratory Results Laboratory Tests 09/17/21 09/17/21 05:36 05:36 WBC 5.67 Hgb 11.8 L Hct 37.4 L Plt Count 120 L Sodium 138 Potassium 3.8 Chloride 103 Carbon Dioxide 26 BUN 14 Creatinine 3.16 H D Glucose 60 L Albumin 3.2 L PG Care Time/CCT Total # of Minutes Spent Total Time Spent with Patient: Total time spent is greater than 50% in coordination of care (as documented) at patient's floor/unit and/or counseling patient: Coding Level of Care Code 10728 Subseq Hosp Care Lvl 3 Diagnoses End-stage renal disease on hemodialysis N18.6; Z99.2 Acute decompensated heart failure I50.9 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
--- NOTE | 2021-09-17 09:58 | Hospitalist Progress Note ---
Date of Service September 17, 2021 Assessment & Plan (1) Confusion: Plan: Acute metabolic encephalopathy Likely multifactorial secondary to cellulitis, UTI, opioid use, hypercarbia- Resolved and eating, More Alert --CT head:No acute intracranial hemorrhage, no evidence of acute territorial infarction or other acute intracranial disease process. --VBG suggestive of Hypercarbia Hold Opioids, Mirtazapine Normal Ammonia level Narcan Given BiPAP Neuro Checks Fall, aspiration precautions Continue supplemental oxygen as needed NPO for now UA Positive-Gram Neg Bacilli, DC Rocephin, Cefepime to Cover PA, de-escalate later UTI- Rocephin and Doxy Acute respiratory failure with hypoxia, hypercarbia B/L Pleural effusion Volume overload: Acute on chronic systolic CHF, end-stage renal disease on hemodialysis Imaging studies suggestive of worsening bilateral pleural effusion Patient is on Sunday hemodialysis Nephrology consulted to help with dialysis Monitor volume status closely Monitor I's and O's, daily weight Check ECHO Cardiology consulted as well Left leg cellulitis Blood Cultures pending-NGTD Procalcitonin 0.57 Hold p.o. cephalexin Started on Rocephin, doxycycline Dopplers neg for DVT Diarrhea --CT ABD: Compared to previous study, there is increasing bilateral pleural effusions and bilateral lower lobe atelectasis/collapse. No evidence for acute intra-abdominal or pelvic abnormality on these limited noncontrast images. Diverticulosis without evidence for diverticulitis. Hold stool softeners Stool studies to rule out infection--pending Chronic troponin elevation In setting of CHF, CKD Trend cardiac enzymes Generalized weakness H/O Falls Ambulate dysfunction Fall precautions PT OT when appropriate ESRD on HD Nephrology to help with dialysis management Valvular heart disease S/P AVR CAD S/P CABG Resume home medications as able Hyperlipidemia Resume statin as able DVT Px: Heparin SQ Code Status DNI/DNR ROS-No Headache, No Visual Changes, No Nausea, No Vomiting, No Fever, No Chills, No Neck Pain or Stiffness, No Chest Pain, No Palpitations, No SOB, No ARROYO, No Cough, No Sputum, No Wheezing, No Abdominal Pain, No Diarrhea, No Hematemesis, No Hemoptysis, No Unexpected Weight Loss, No Flank pain, No Melena, No Hematochezia, No Frequency, No Urgency, No Burning, No Hematuria, No Rashes, No Diaphoresis. Appetite is Normal Physical Exam Gen-AAO x 3, NAD, Afebrile Head-NCAT, EOMI, PERRLA, Anicteric Sclera, No Posterior Pharyngeal Erythema Neck-Supple, No JVD, No Thyromegaly, No Masses, No LAD, No Bruits Lungs-Clear to Auscultation Bilaterally, No Rales, No Rhonchi, No Wheezing, No Crepitus Chest-No S4, +S1, +S2, No S3, No Murmurs, No Rubs, No Gallops, No Ectopy Abdomen-Soft, Bowel Sounds Present, Non Tender, Non Distended, No Hepatomegaly, No Splenomegaly, No Palpable Masses, No Rebound, No Rigidity, No Guarding Musculoskeletal-Full Range of Motion Bilaterally, No CVAT Extremities-No Cyanosis, No Clubbing, No Edema Nuero-Cranial Nerves II-XII grossly intact, Motor WNL, DTRs WNL, Strength WNL, Non Focal Psych-Normal Mood Admission and Anticipated Discharge Date Admission Date: September 15, 2021 Results & Data Results & Data ([facility]) Vital Signs (Past 12 Hours) Vital Signs Temp Pulse Pulse Resp BP Pulse Ox 09/17/21 08:51 70 09/17/21 08:19 36.7 C 84 22 99/48 L 09/17/21 02:54 36.9 C 63 18 104/58 L 100 09/16/21 22:00 36.6 C 75 16 112/52 L 100
[2021-09-17] MEDS ORDERED: CEFEPIME 2,000 MG in SYRINGE 0 ML IV SCH (11:00)
[2021-09-17] MEDS: ATORVASTATIN 40 MG TAB PO SCH (20:35)
[2021-09-18 07:03] LABS: Mean Corpuscular Hgb Conc 32.1 g/dL (32-36)
[2021-09-18 07:10] LABS: Hemoglobin 10.9 g/dL (14.0-18.0); Mean Corpuscular Hemoglobin 26.1 pg (25-34); Mean Corpuscular Volume 81.3 fL (80-100); RDW Coefficient of Variation 18.4 % (11.5-14.5); RDW Standard Deviation 52.6 fL (36.4-46.3); Red Blood Count 4.18 M/uL (4.7-6.1); White Blood Count 5.11 K/uL (4.8-10.8)
[2021-09-18 07:20] LABS: BUN Creatinine Ratio 4.7 (10-20); Calcium 8.2 mg/dl (8.5-10.1); Creatinine Clr Calc Pharmacy 11.9 ml/min; Est GFR (African American) 13.6 ml/min; Est GFR (Non-African American) 11.7 ml/min
[2021-09-18 07:37] LABS: Platelet Count 117 K/uL (130-400); Platelet Estimate Decreased (Normal)
[2021-09-18 08:34] LABS: iSTAT Allen Test Pass; iSTAT Arterial Blood Gas HCO3 27 meg/L (19-24); iSTAT Arterial Blood Gas pCO2 62 mmHg (35-46); iSTAT Arterial Blood Gas pH 7.25 (7.35-7.45); iSTAT Arterial Blood Gas pO2 99 mmHg (80-95); iSTAT Carbon Dioxide 28 mmol/L (24-31); iSTAT Site R Radial
--- NOTE | 2021-09-18 08:47 | Nephrology Progress Note ---
Date of Service September 18, 2021 Assessment & Plan (1) End-stage renal disease on hemodialysis: Plan: * Outpatient HD: MWF 3 hrs 30 minutes on a 180 optiflux with Qb 450 / Qd 500. EDW has been 80 kg * Volume status and electrolyte balance are acceptable. No acute indication for HD today (2) Acute decompensated heart failure: Plan: * Improved following 2800 cc UF on dialysis yesterday * Echo 09/16/21: LVEF 25 - 30%, mod MR, mod TR, mod L pleural effusion * Has pacemaker in place. Not a candidate for AICD due to frailty, comorbid illnesses (3) HTN (hypertension): Plan: * All antihypertensive medications have been weaned off over the past year and BP remains low. 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 No acute indication for RADHA at this time (5) Cystitis: Plan: * E. Coli UTI. Currently on IV Cefepime * Will request pharmacy consultation to dose Cefepime in the setting of ESRD. May need to reduce dose due to ESRD (6) Cellulitis: Plan: * LLE cellulitis. Currently on Doxycycline/Cefepime Admission and Anticipated Discharge Date Admission Date: September 15, 2021 Subjective Mr. Poon was evaluated in his hospital room this morning. He was placed back on BiPAP by the primary service. He remains weak and confused Review of Systems Constitutional: + weakness; no fever Eyes: no problem reported Ear, Nose, Mouth, Throat: no problem reported Respiratory: no dyspnea Cardiovascular: no chest pain, no palpitations and no edema Gastrointestinal: no abdominal pain, no nausea, no vomiting and no diarrhea/loose stools Musculoskeletal: no back pain Integumentary: no rash Neurologic: no falls, no dizziness and no confusion Physical Exam Constitutional: not in distress Eyes: PERRL, conjunctivae normal, anicteric sclerae ENMT: external ear and nose normal, oropharynx normal Neck: trachea midline, no thyromegaly Respiratory: normal respiratory effort, lungs clear to auscultation Cardiovascular: RRR, no murmur, no edema Gastrointestinal (Abdomen): normal bowel sounds, soft, nontender, no hepatosplenomegaly Skin: no rashes, warm and dry Neurologic: awake and + confused Results & Data ([facility]) Vital Signs (Past 12 Hours) Vital Signs Temp Pulse Pulse Resp BP Pulse Ox 09/18/21 08:18 27 H 94 09/18/21 07:43 69 09/18/21 02:42 36.8 C 66 16 108/64 100 09/17/21 22:57 36.6 C 69 18 121/88 100 Laboratory Results Laboratory Tests 09/18/21 09/18/21 06:51 06:51 WBC 5.11 Hgb 10.9 L Hct 34.0 L Plt Count 117 L Sodium 134 L Potassium 4.0 Chloride 102 Carbon Dioxide 26 BUN 20 Creatinine 4.24 H D Glucose 77 PG Care Time/CCT Total # of Minutes Spent Total Time Spent with Patient: Total time spent is greater than 50% in coordination of care (as documented) at patient's floor/unit and/or counseling patient: Coding Level of Care Code 00037 Subseq Hosp Care Lvl 3 Diagnoses End-stage renal disease on hemodialysis N18.6; Z99.2 Acute decompensated heart failure I50.9 HTN (hypertension) I10 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
[2021-09-18] MEDS: DOXYCYCLINE HYCLATE 100 MG in DEXTROSE 5% 100 ML IV SCH ×2 (09:26→20:49)
[2021-09-18] MEDS: HEPARIN SOD 5,000 UNIT/0.5 ML VIAL SQ SCH ×2 (09:32→20:49)
[2021-09-18] MEDS ORDERED: CONSULT PHARMACY PRN (10:40)
[2021-09-18] MEDS: CALCIUM ACETATE 667 MG CAP/TAB PO SCH ×3 (10:41→17:00)
--- NOTE | 2021-09-18 10:46 | Hospitalist Progress Note ---
Date of Service September 18, 2021 Assessment & Plan (1) Confusion: Plan: Acute metabolic encephalopathy Likely multifactorial secondary to cellulitis, UTI, opioid use, hypercarbia- Resolved and eating, More Alert --CT head:No acute intracranial hemorrhage, no evidence of acute territorial infarction or other acute intracranial disease process. --ABG today reveal Hypercarbia and acidemia Hold Opioids, Mirtazapine Normal Ammonia level Narcan Given BiPAP Neuro Checks Fall, aspiration precautions Continue supplemental oxygen as needed NPO for now UA Positive-Gram Neg Bacilli, +E Coli UTI- Rocephin and Doxy Acute respiratory failure with hypoxia, hypercarbia B/L Pleural effusion Volume overload: Acute on chronic systolic CHF, end-stage renal disease on hemodialysis Imaging studies suggestive of worsening bilateral pleural effusion Patient is on Sunday hemodialysis Nephrology consulted to help with dialysis Monitor volume status closely Monitor I's and O's, daily weight Check ECHO Cardiology on case Left leg cellulitis Blood Cultures pending-NGTD Procalcitonin 0.57 Hold p.o. cephalexin Rocephin and doxycycline Dopplers neg for DVT Diarrhea --CT ABD: Compared to previous study, there is increasing bilateral pleural effusions and bilateral lower lobe atelectasis/collapse. No evidence for acute intra-abdominal or pelvic abnormality on these limited noncontrast images. Diverticulosis without evidence for diverticulitis. Hold stool softeners Stool studies to rule out infection--pending Chronic troponin elevation In setting of CHF, CKD Trend cardiac enzymes Generalized weakness H/O Falls Ambulate dysfunction Fall precautions PT/OT when appropriate DC Cefepime in favor of E Coli being Pansensitive ESRD on HD Nephrology to help with dialysis management Valvular heart disease S/P AVR CAD S/P CABG Resume home medications as able Hyperlipidemia Resume statin as able DVT Px: Heparin SQ PCO2 52, Back on BIPAP Code Status DNI/DNR ROS-No Headache, No Visual Changes, No Nausea, No Vomiting, No Fever, No Chills, No Neck Pain or Stiffness, No Chest Pain, No Palpitations, No SOB, No ARROYO, No Cough, No Sputum, No Wheezing, No Abdominal Pain, No Diarrhea, No Hematemesis, No Hemoptysis, No Unexpected Weight Loss, No Flank pain, No Melena, No Hematochezia, No Frequency, No Urgency, No Burning, No Hematuria, No Rashes, No Diaphoresis. Appetite is Normal Physical Exam Gen-AAO x 1, Somnolent and confused, Afebrile Head-NCAT, EOMI, PERRLA, Anicteric Sclera, No Posterior Pharyngeal Erythema Neck-Supple, No JVD, No Thyromegaly, No Masses, No LAD, No Bruits Lungs-Clear to Auscultation Bilaterally, No Rales, No Rhonchi, No Wheezing, No Crepitus Chest-No S4, +S1, +S2, No S3, No Murmurs, No Rubs, No Gallops, No Ectopy Abdomen-Soft, Bowel Sounds Present, Non Tender, Non Distended, No Hepatomegaly, No Splenomegaly, No Palpable Masses, No Rebound, No Rigidity, No Guarding Musculoskeletal-Full Range of Motion Bilaterally, No CVAT Extremities-No Cyanosis, No Clubbing, No Edema Nuero-Cranial Nerves II-XII grossly intact, Motor WNL, DTRs WNL, Strength WNL, Non Focal Psych-Normal Mood Admission and Anticipated Discharge Date Admission Date: September 15, 2021 Subjective Seen this morning. He is weak and confused this am Results & Data Results & Data ([facility]) Vital Signs (Past 12 Hours) Vital Signs Temp Pulse Pulse Resp BP Pulse Ox 09/18/21 08:18 27 H 94 09/18/21 07:43 69 09/18/21 02:42 36.8 C 66 16 108/64 100 09/17/21 22:57 36.6 C 69 18 121/88 100
[2021-09-18] MEDS: cefTRIAXone SODIUM 2,000 MG in DEXTROSE 5% 50 ML IV SCH (11:27)
[2021-09-18] MEDS: ATORVASTATIN 40 MG TAB PO SCH (20:49)
[2021-09-19] MEDS ORDERED: SODIUM CHLORIDE 0.9% 1000ML 1,000 ML IV PRN (07:00)
[2021-09-19] MEDS ORDERED: HEPARIN SOD (PORCINE) 1000 UNIT/ML IV ONE (07:00)
--- NOTE | 2021-09-19 07:13 | Hospitalist Progress Note ---
Date of Service September 19, 2021 Assessment & Plan (1) Confusion: Plan: Acute metabolic encephalopathy Likely multifactorial secondary to cellulitis, UTI, opioid use, hypercarbia-MS waxing and Waning --CT head:No acute intracranial hemorrhage, no evidence of acute territorial infarction or other acute intracranial disease process. --ABG today reveal Hypercarbia and acidemia Hold Opioids, Mirtazapine Normal Ammonia level Narcan Given BiPAP Neuro Checks Fall, aspiration precautions Continue supplemental oxygen as needed May eat UA Positive-Gram Neg Bacilli, +E Coli UTI- Rocephin and Doxy Acute respiratory failure with hypoxia, hypercarbia B/L Pleural effusion Volume overload: Acute on chronic systolic CHF, end-stage renal disease on hemodialysis Imaging studies suggestive of worsening bilateral pleural effusion Patient is on Sunday hemodialysis Nephrology consulted to help with dialysis Monitor volume status closely Monitor I's and O's, daily weight ECHO done Cardiology on case Left leg cellulitis Blood Cultures pending-NGTD Procalcitonin 0.57 Hold p.o. cephalexin Rocephin and doxycycline Dopplers neg for DVT Diarrhea --CT ABD: Compared to previous study, there is increasing bilateral pleural effusions and bilateral lower lobe atelectasis/collapse. No evidence for acute intra-abdominal or pelvic abnormality on these limited noncontrast images. Diverticulosis without evidence for diverticulitis. Hold stool softeners Stool studies to rule out infection--pending Repeat CXR Chronic troponin elevation In setting of CHF, CKD Trend cardiac enzymes Generalized weakness H/O Falls Ambulate dysfunction Fall precautions PT/OT when appropriate DC Cefepime in favor of E Coli being Pansensitive ESRD on HD Nephrology to help with dialysis management Valvular heart disease S/P AVR CAD S/P CABG Resume home medications as able Hyperlipidemia Resume statin as able DVT Px: Heparin SQ PCO2 52, BIPAP Code Status DNI/DNR Family meeting today ROS-No Headache, No Visual Changes, No Nausea, No Vomiting, No Fever, No Chills, No Neck Pain or Stiffness, No Chest Pain, No Palpitations, No SOB, No ARROYO, No Cough, No Sputum, No Wheezing, No Abdominal Pain, No Diarrhea, No Hematemesis, No Hemoptysis, No Unexpected Weight Loss, No Flank pain, No Melena, No Hematochezia, No Frequency, No Urgency, No Burning, No Hematuria, No Rashes, No Diaphoresis. Appetite is Normal No new complaints Physical Exam Gen-AAO x 1, Somnolent and confused, Afebrile Head-NCAT, EOMI, PERRLA, Anicteric Sclera, No Posterior Pharyngeal Erythema Neck-Supple, No JVD, No Thyromegaly, No Masses, No LAD, No Bruits Lungs-Clear to Auscultation Bilaterally, No Rales, No Rhonchi, No Wheezing, No Crepitus Chest-No S4, +S1, +S2, No S3, No Murmurs, No Rubs, No Gallops, No Ectopy Abdomen-Soft, Bowel Sounds Present, Non Tender, Non Distended, No Hepatomegaly, No Splenomegaly, No Palpable Masses, No Rebound, No Rigidity, No Guarding Musculoskeletal-Full Range of Motion Bilaterally, No CVAT Extremities-No Cyanosis, No Clubbing, No Edema Nuero-Cranial Nerves II-XII grossly intact, Motor WNL, DTRs WNL, Strength WNL, Non Focal Psych-Normal Mood Admission and Anticipated Discharge Date Admission Date: September 15, 2021 Subjective Seen this morning. He is weak and confused this am Results & Data Results & Data ([facility]) Vital Signs (Past 12 Hours) Vital Signs Temp Pulse Resp BP Pulse Ox 09/19/21 00:09 36.5 C 74 18 111/56 L 100 09/18/21 19:23 36.7 C 67 17 105/61 100
[2021-09-19 07:51] LABS: Albumin Globulin Ratio 0.9 (0.9-2); Albumin Level 2.9 gm/dl (3.4-5.0); BUN Creatinine Ratio 5.5 (10-20); Bilirubin,Total 0.6 mg/dl (0.2-1.0); Calcium 8.2 mg/dl (8.5-10.1); Creatinine Clr Calc Pharmacy 9.8 ml/min; Est GFR (African American) 10.8 ml/min; Est GFR (Non-African American) 9.4 ml/min; Globulin 3.3 gm/dl (2.5-4.0); Potassium 4.3 mmol/L (3.5-5.1); Total Protein 6.2 gm/dl (6.0-8.3)
[2021-09-19 08:02] LABS: Hematocrit (blood only) 33.7 % (42-52); Hemoglobin 10.8 g/dL (14.0-18.0); Mean Corpuscular Hemoglobin 25.9 pg (25-34); Mean Corpuscular Volume 80.8 fL (80-100); RDW Coefficient of Variation 18.3 % (11.5-14.5); RDW Standard Deviation 50.8 fL (36.4-46.3); Red Blood Count 4.17 M/uL (4.7-6.1); White Blood Count 5.29 K/uL (4.8-10.8)
[2021-09-19 08:04] LABS: Platelet Count 119 K/uL (130-400)
[2021-09-19 08:05] LABS: Platelet Estimate Decreased (Normal)
--- NOTE | 2021-09-19 09:06 | XRay Report ---
XR chest 1V portable HISTORY: Follow-up. Pleural Effusion COMPARISON: Chest 09/15/2021. FINDINGS: No pneumothorax. Bilateral pleural effusions and cardiomegaly persist. There are poststerno adri changes and an aortic valve prosthesis. Diffuse interstitial/vascular thickening and hazy airspa ce opacities persist. Patchy bibasilar densities are again noted and may represent atelectasis from t he pleural effusions. IMPRESSION: 1. No change in the cardiomegaly, pulmonary edema, and bilateral pleural effusions. 2. Patchy bibasilar densities persist and may represent atelectasis from the pleural effusions. ACT 112: Negative or not required by law. Electronically signed by: Osvaldo Cuevas M.D. 09/19/2021 9:05 AM
--- NOTE | 2021-09-19 09:28 | Nephrology Progress Note ---
Date of Service September 19, 2021 Assessment & Plan (1) End-stage renal disease on hemodialysis: Plan: * Outpatient HD: MWF 3 hrs 30 minutes on a 180 optiflux with Qb 450 / Qd 500. EDW has been 80 kg * Will provide HD today. Will attempt 2L UF to return to outpatient EDW of 80 kg (2) Acute decompensated heart failure: Plan: * Improved following UF with HD sunday * Echo 09/16/21: LVEF 25 - 30%, mod MR, mod TR, mod L pleural effusion * Has pacemaker in place. Not a candidate for AICD due to frailty, comorbid illnesses (3) HTN (hypertension): Plan: * All antihypertensive medications have been weaned off over the past year and BP remains low. 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 No acute indication for RADHA at this time (5) Cystitis: Plan: * E. Coli UTI * Antibiotic changed from Cefepime to Ceftriaxone yesterday based upon sesitivities and patient's ESKD (6) Cellulitis: Plan: * LLE cellulitis. Currently on Doxycycline/Ceftriaxone (7) Confusion: Plan: * Cefepime stopped * Pulmonary has ordered VBG Admission and Anticipated Discharge Date Admission Date: September 15, 2021 Subjective Mr. Poon was evaluated in his hospital room this morning. He was alert but nonconversant Review of Systems Review of Systems: Unobtainable due to cognitive status Physical Exam Constitutional: not in distress Eyes: PERRL, conjunctivae normal, anicteric sclerae ENMT: external ear and nose normal, oropharynx normal Neck: trachea midline, no thyromegaly Respiratory: normal respiratory effort, lungs clear to auscultation Cardiovascular: RRR, no murmur, no edema AVF + bruit Gastrointestinal (Abdomen): normal bowel sounds, soft, nontender, no hepatosplenomegaly Skin: no rashes, warm and dry Neurologic: awake but nonverbal Results & Data ([facility]) Vital Signs (Past 12 Hours) Vital Signs Temp Pulse Resp BP Pulse Ox 09/19/21 07:26 36.7 C 82 19 92/49 L 97 09/19/21 00:09 36.5 C 74 18 111/56 L 100 Laboratory Results Laboratory Tests 09/19/21 09/19/21 07:19 07:19 WBC 5.29 Hgb 10.8 L Hct 33.7 L Plt Count 119 L Sodium 137 Potassium 4.3 Chloride 103 Carbon Dioxide 24 BUN 28 H Creatinine 5.12 H* D Glucose 73 Calcium 8.2 L PG Care Time/CCT Total # of Minutes Spent Total Time Spent with Patient: Total time spent is greater than 50% in coordination of care (as documented) at patient's floor/unit and/or counseling patient: Coding Level of Care Code 41559 Subseq Hosp Care Lvl 3 Diagnoses End-stage renal disease on hemodialysis N18.6; Z99.2 Acute decompensated heart failure I50.9 HTN (hypertension) I10 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
[2021-09-19] MEDS: DOXYCYCLINE HYCLATE 100 MG in DEXTROSE 5% 100 ML IV SCH (09:45)
[2021-09-19] MEDS: HEPARIN SOD 5,000 UNIT/0.5 ML VIAL SQ SCH ×2 (09:46→21:30)
[2021-09-19] MEDS: cefTRIAXone SODIUM 2,000 MG in DEXTROSE 5% 50 ML IV SCH (09:46)
--- NOTE | 2021-09-19 09:46 | Pulmonary Consultation ---
Date of Consultation September 19, 2021 Assessment & Plan (1) Bilateral pleural effusion: 86M w/ hx of CAD (s/p CABG), valvular heart disease (s/pAVR), ESRD (on dialysis), and ischemic cardiomyopathy who presented for 3 weeks of progressive weakness and confusion found to have a bilateral pleural effusion on CXR. -Effusion, evident on imaging, likely transudative from acute decompensated HF, vs. PNA. Suspected acute decompensated HF, per cardiology. - recalls similar presentation of confusion years ago with pneumonia. However, patient was febrile then, which he was not over 3 weeks course of symptoms. Pt now on empiric abx for presumed UTI. -Pt. appears to be in respiratory acidosis, likely secondary to his ESRD and diminished ability to compensate with bicarb. -Thoracentesis would be unlikely to provide long-term benefit as effusion would reaccumulate. Primary issue appears to be volume management 2/2 chronic cardiac, kidney problems. Dialysis only feasible option, given hypotension risk with pharmacologic interventions options. * Recommend more aggressive diuresis, bicarb titration during dialysis to nephrology. * VBG ordered in light of AMS--will follow. * Will hold off on any direct interventions at this time until goals of care discussion has been had between family and primary team hospitalist. Supervising Physician Co-Signing Physician Notes Patient seen and examined. EMR reviewed. Images independently reviewed. Discussed with family practice resident. Agree with assessment plan as noted. The patient has bilateral pleural effusions likely secondary to his end-stage renal disease and cardiomyopathy. Would continue attempts at dialysis. Thoracentesis unlikely to offer long-term benefit. Procedure also not without risk. The patient is unable to provide consent. It appears that there are discussions with family underway regarding how aggressive to be in evaluating and treating this patient at this point time and I would defer any additional consideration of invasive procedures until those discussions have been held and the patient status is clarified. Additional work-up for his hypercarbic respiratory failure is limited by his encephalopathy. Differential would include neuromuscular weakness, decreased central drive and would require evaluation of respiratory muscle strength which the patient is unable to perform currently. Given the fact that he is declining noninvasive positive pressure ventilation, we may not be able to intervene significantly with this issue. Would titrate oxygen to maintain saturations around 90%. Will follow up in AM regarding family discussions and follow up VBG. History of Present Illness Attending Physician: Jasbir Zayas DO History of Present Illness Javier is an 86 year old man with a medical history notable for valvular heart disease s/p AVR, CAD s/p CABG, ischemic cardiomyopathy, and ESRD on thrice weekl y dialysis. He presented to the ER with his for progressive confusion and generalized weakness x 3 weeks after he was found to be hypoxic in the 80s. CXR showed b/l pleural effusions, echo showed severe HFrEF with EF 25-30%. Per nursing, no acute events overnight and the patient has been intermittently alert and oriented only to self at baseline of progressive confusion and weakness. Patient is confused and nonverbal today so was called for additional information. Patient's and daughter largely corroborated admission HPI, including ROS. At baseline, he is mobile at home with a walker and without an oxygen requirement. His also states he is not confused at baseline. Patient is a former smoker of 40+ years with a 15-20 year smoking history. 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 He has an unspecified family hx of cancer in his 2 siblings. Allergies Allergy/AdvReac Type Severity Reaction Status Date / Time No Known Drug Allergies Allergy Unknown . Verified 09/15/21 15:10 Home Medications Medication Instructions Recorded Confirmed Type Colace 100 mg PO BID 09/15/21 09/15/21 History Ensure Apple 1 ea PO DAILY 09/15/21 09/15/21 History PhosLo 667 mg PO TIDM 09/15/21 09/15/21 History acetaminophen 500 mg tablet 1,500 mg PO HS 09/15/21 09/15/21 History (Tylenol Extra Strength) atorvastatin 40 mg tablet 40 mg PO HS 09/15/21 09/15/21 History cephalexin 500 mg capsule 500 mg PO BID 09/15/21 09/15/21 History loperamide 2 mg PO BID PRN 09/15/21 09/15/21 History mirtazapine 15 mg tablet 30 mg PO HS 09/15/21 09/15/21 History nitroglycerin 0.4 mg sublingual 0.4 mg SUBLINGUAL DIRECTED PRN 09/15/21 09/15/21 History tablet (Nitrostat) oxycodone 5 mg tablet 5 mg PO Q4H PRN 09/15/21 09/15/21 History polyethylene glycol 3350 17 gram 17 g PO DAILY PRN 09/15/21 09/15/21 History oral powder packet (Miralax) Patient History Medical History Anemia 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 ASCVD (arteriosclerotic cardiovascular disease) BPH (benign prostatic hyperplasia) Bullous pemphigoid Chest pain Dialysis patient Dyslipidemia Elevated troponin Elevated troponin ESRD (end stage renal disease) on dialysis ESRD on dialysis HTN (hypertension) Pacemaker Pacemaker Renal calculi Surgical History Aortic valve replaced H/O inguinal hernia repair History of cataract surgery History of tonsillectomy Hx of CABG Family History Other Coronary heart disease Hypertension Stroke Social History Smoking Status: Never smoker Second Hand Exposure: No; Hx Alcohol Use: No Hx Substance Use: No Preferred Language: Armenian Communication Ability: Impaired Communication Ability Comment: Pt moans to stimuli Electrotyper Apprentice Required: No Beliefs That Will Affect Care: Cultural marital status: Current Living Situation: Spouse Current Living Situation Comment: apartment current occupational status: retired How many Children do You have: 3 Other Information That Helps Us Care for You: No Feels Safe at Home: Yes Assistive Devices: BiPap and Walker Review of Systems Review of Systems: All systems reviewed & are unremarkable except as noted in HPI & below Physical Exam Physical Exam: General: Patient is awake but not alert. He is in no acute distress HEENT: Non-erythematous oropharynx; no lymphadenopathy; normal dentition. CV: Regular rate and rhythm. Normal S1 and S2. No murmurs gallops or rubs. Bilateral 1+ pedal edema. Pulmonary: Unable to auscultate as patient is unable to follow commands. Abdomen: Soft, nondistended abdomen. No bruits heard on auscultation. No tenderness to deep palpation. No guarding or rebound. Results & Data Results & Data ([facility]) Vital Signs (Past 12 Hours) Vital Signs Temp Pulse Resp BP Pulse Ox 09/19/21 07:26 36.7 C 82 19 92/49 L 97 03/07/22 00:09 36.5 C 74 18 111/56 L 100 Resident Activity Tracking Resident Involvement: Resident Care Provided Care Provided: Adult Hospital Medicine
[2021-09-19 10:00] LABS: Base Excess VBG -2.1 mEq/L; Oxygen Saturation VBG 65.8 %; pH VBG 7.26 (7.36-7.41)
[2021-09-19] MEDS: CALCIUM ACETATE 667 MG CAP/TAB PO SCH ×3 (10:01→18:19)
--- NOTE | 2021-09-19 10:21 | Billing Data ---
Date of Service September 19, 2021 Coding Level of Care Code 18989 Initial Inpt Care Lvl 3
[2021-09-20] MEDS: DOXYCYCLINE HYCLATE 100 MG in DEXTROSE 5% 100 ML IV SCH ×2 (00:13→08:17)
[2021-09-20] MEDS: ATORVASTATIN 40 MG TAB PO SCH (00:14)
[2021-09-20 07:22] LABS: Mean Corpuscular Hgb Conc 32.3 g/dL (32-36)
[2021-09-20 07:44] LABS: BUN Creatinine Ratio 4.5 (10-20); Calcium 7.9 mg/dl (8.5-10.1); Creatinine Clr Calc Pharmacy 16.3 ml/min; Est GFR (Non-African American) 17.2 ml/min; Potassium 4.1 mmol/L (3.5-5.1)
[2021-09-20 07:55] LABS: Hematocrit (blood only) 34.7 % (42-52); Hemoglobin 11.2 g/dL (14.0-18.0); Mean Corpuscular Hemoglobin 25.9 pg (25-34); Mean Corpuscular Volume 80.3 fL (80-100); RDW Coefficient of Variation 18.5 % (11.5-14.5); RDW Standard Deviation 50.6 fL (36.4-46.3); Red Blood Count 4.32 M/uL (4.7-6.1); White Blood Count 5.29 K/uL (4.8-10.8)
[2021-09-20 07:56] LABS: Platelet Count 113 K/uL (130-400); Platelet Estimate Decreased (Normal)
[2021-09-20] MEDS: CALCIUM ACETATE 667 MG CAP/TAB PO SCH (08:17)
[2021-09-20] MEDS: cefTRIAXone SODIUM 2,000 MG in DEXTROSE 5% 50 ML IV SCH (08:19)
[2021-09-20] MEDS: HEPARIN SOD 5,000 UNIT/0.5 ML VIAL SQ SCH (08:26)
--- NOTE | 2021-09-20 08:52 | Nephrology Progress Note ---
Date of Service September 20, 2021 Assessment & Plan (1) End-stage renal disease on hemodialysis: Plan: * Patient dialyzed yesterday. CXR w/ florid pulmonary edema. 2L UF ordered but only 600 cc obtained due to hypotension during treatment (2) Acute decompensated heart failure: Plan: * Remains in CHF. Attempts at UF with dialysis limited due to hypotension * Echo 09/16/21: LVEF 25 - 30%, mod MR, mod TR, mod L pleural effusion * Has pacemaker in place. Not a candidate for AICD due to frailty, comorbid illnesses (3) HTN (hypertension): Plan: * All antihypertensive medications have been weaned off over the past year and BP remains low. 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 No acute indication for RADHA at this time (5) Cystitis: Plan: * E. Coli UTI * Antibiotic changed from Cefepime to Ceftriaxone yesterday based upon sesitivities and patient's ESKD (6) Cellulitis: Plan: * LLE cellulitis. Currently on Doxycycline/Ceftriaxone (7) Confusion: Plan: * Cefepime stopped * Pulmonary has ordered VBG (8) Generalized weakness: Plan: * Mr. Poon is obtunded this morning. CXR shows persistent CHF. Unable to remove significant volume w/ HD yesterday due to hypotension. Patient appears to be failing medical treatment. Recommend discussing plan of care w/ family and considering transition to comfort measures. Admission and Anticipated Discharge Date Admission Date: September 15, 2021 Subjective Mr. Poon was evaluated in his hospital room this morning. He was obtunded and would not open eyes to voice or tactile stimuli. HD was provided yesterday but only 600 cc UF obtained due to hypotension Review of Systems Review of Systems: Unobtainable due to cognitive status Physical Exam Constitutional: + altered mental status and + frail appearing Eyes: PERRL, conjunctivae normal, anicteric sclerae ENMT: Mouth: + dry oral mucous membranes Neck: trachea midline, no thyromegaly Respiratory: + tachypneic Cardiovascular: Rate/Rhythm: regular rate and regular rhythm Extremities: + edema (dependent edema) and + AV fistula (+ bruit) Gastrointestinal (Abdomen): normal bowel sounds, soft, nontender, no hepatosplenomegaly Neurologic: + obtunded Results & Data ([place]) Vital Signs (Past 12 Hours) Vital Signs Temp Pulse Resp BP Pulse Ox 09/20/21 07:43 25 H 93 09/20/21 07:22 37.1 C 89 22 90/52 L 94 09/20/21 04:32 44 H 09/20/21 03:11 37.3 C 89 20 96/58 L 88 L 09/19/21 23:05 37.3 C 78 20 93/57 L 96 09/19/21 22:08 32 H Laboratory Results Laboratory Tests 09/19/21 09/20/21 09/20/21 07:19 06:59 06:59 WBC 5.29 Hgb 11.2 L Hct 34.7 L Plt Count 113 L Sodium 139 Potassium 4.1 Chloride 104 Carbon Dioxide 25 BUN 14 Creatinine 3.09 H D Glucose 79 Albumin 2.9 L PG Care Time/CCT Total # of Minutes Spent Total Time Spent with Patient: Total time spent is greater than 50% in coordination of care (as documented) at patient's floor/unit and/or counseling patient: Coding Level of Care Code 60441 Subseq Hosp Care Lvl 3 Diagnoses End-stage renal disease on hemodialysis N18.6; Z99.2 Acute decompensated heart failure I50.9 HTN (hypertension) I10 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
--- NOTE | 2021-09-20 09:07 | XRay Report ---
XR chest 1V portable CLINICAL HISTORY: CHF TECHNIQUE: Single frontal radiograph of the chest was obtained. Comparison: Comparison is made to chest one view 09/19/2021 FINDINGS: Stable appearance of pacemaker and median sternotomy wires. Cardiomegaly is noted. Prominence and cep halization of the vasculature is seen. Lower lumbar dominant airspace opacities are seen bilaterally. Small bilateral pleural effusions are seen. IMPRESSION: Cardiomegaly with mild pulmonary edema. Bilateral airspace opacities may represent atelectasis, pneum onia, and/or aspiration. Bilateral pleural effusions are seen. ACT 112: Negative or not required by law. Electronically signed by: Ricci Salguero M.D. 09/20/2021 9:06 AM
--- NOTE | 2021-09-20 09:15 | Pulmonology Progress Note ---
Date of Service September 20, 2021 Assessment & Plan (1) Bilateral pleural effusion: Plan: 86M w/ hx of CAD (s/p CABG), valvular heart disease (s/pAVR), ESRD (on dialysis), and ischemic cardiomyopathy who presented for 3 weeks of progressive weakness and confusion found to have a bilateral pleural effusion on CXR. -Effusion, evident on imaging, likely acute decompensated heart failure and end- stage renal disease. Low suspicion for infectious pulmonary process (blood cultures negative x 48 hours, afebrile). -Pt remains on empiric abx for presumed UTI. Suspect however that UTI is asymptomatic and not the primary p d driver of his altered mental status. -Pt. is respiratorily acidotic, which is likely secondary to his ESRD and his diminished ability to compensate metabolically with bicarb. VBG obtained yesterday showed slight improvement. Patient remains respiratorily acidotic though. -Patient appears more lethargic and obtunded today. -Thoracentesis would be unlikely to provide long-term benefit as effusion would likely reaccumulate in a manner of days. Primary issue appears to be volume management secondary to his chronic cardiac, kidney problems. Dialysis only feasible option, given the risk of hypotension (patient has low blood pressure at baseline without medications). * Recommend more aggressive diuresis, bicarb titration during dialysis to nephrology. * Goals of care discussion between family and primary team hospitalist occurred yesterday. Family decided to wait until Sunday to attempt any additional intervention. However, after discussing with hospitalist the futility of respiratory intervention (thoracentesis/pleural tap) in the long-term, hospitalist plans to discuss comfort measure considerations with family instead. Admission and Anticipated Discharge Date Admission Date: September 15, 2021 Supervising Physician Co-Signing Physician Notes Patient seen and examined. EMR reviewed. Discussed with family practice resident and agree with assessment plan as noted. The patient remains encephalopathic and obtunded. He is down to a minimal amount of oxygen. He tolerated dialysis yesterday. The patient appears comfortable but does not follow any commands. He is unable to give me a thumbs up, blink, or wiggle toes in response to verbal commands. While the patient does have pleural effusions, I suspect these are multifactorial and unlikely to be contributing to the patient's overall encephalopathy and poor general condition. He is unable to provide consent. I am not sure that invasive procedures at this point time are warranted. I think I would agree that discussions regarding overall goals of care would be appropriate. Given the patient's decline, end-stage renal disease on dialysis, and advanced age, consideration for focus on palliative measures that might be appropriate. Unclear how much of a component his persistent acidosis might be having. After discussion with the hospitalist it appears that the patient is transitioning to more of a comfort based approach which I think is reasonable. Pulmonary will sign off at this point time. Feel free to contact us if we can be of additional assistance Subjective Per nursing, patient grew more nonverbal over the course of yesterday and overnight. Today, patient appears to be asleep with BiPAP machine on. He remains nonverbal and less responsive to voice, compared to yesterday. Responsive to sternal rub. He remained nonverbal and nonresponsive after BiPAP removed and placed on nasal cannula. Physical Exam Physical Exam: General: Patient appears lethargic and obtunded. He is completely nonverbal. Nonresponsive to voice. Arousable to sternal rub. HEENT: Non-erythematous oropharynx; no lymphadenopathy; normal dentition. CV: Regular rate and rhythm. Normal S1 and S2. No murmurs gallops or rubs. Bilateral 1+ pedal edema. Pulmonary: Still unable to auscultate as patient is unable to follow commands. Abdomen: Soft, nondistended abdomen. No bruits heard on auscultation. No tenderness to deep palpation. No guarding or rebound. Results & Data Results & Data ([facility]) Vital Signs (Past 12 Hours) Vital Signs Temp Pulse Resp BP Pulse Ox 09/20/21 07:43 25 H 93 09/20/21 07:22 37.1 C 89 22 90/52 L 94 09/20/21 04:32 44 H 09/20/21 03:11 37.3 C 89 20 96/58 L 88 L 09/19/21 23:05 37.3 C 78 20 93/57 L 96 09/19/21 22:08 32 H Resident Activity Tracking Resident Involvement: Resident Care Provided Care Provided: Adult [facility] Medicine
--- NOTE | 2021-09-20 10:07 | Billing Data ---
Date of Service September 20, 2021 Coding Level of Care Code 97971 Subseq Hosp Care Lvl 2
--- NOTE | 2021-09-20 10:10 | Hospitalist Progress Note ---
Date of Service September 20, 2021 Assessment & Plan (1) Confusion: Plan: Acute metabolic encephalopathy Likely multifactorial secondary to cellulitis, UTI, opioid use, hypercarbia-MS waxing and Waning --CT head:No acute intracranial hemorrhage, no evidence of acute territorial infarction or other acute intracranial disease process. --ABG today reveal Hypercarbia and acidemia Hold Opioids, Mirtazapine Normal Ammonia level Narcan Given BiPAP Neuro Checks Fall, aspiration precautions Continue supplemental oxygen as needed May eat UA Positive-Gram Neg Bacilli, +E Coli UTI- Rocephin and Doxy Acute respiratory failure with hypoxia, hypercarbia B/L Pleural effusion Volume overload: Acute on chronic systolic CHF, end-stage renal disease on hemodialysis Imaging studies suggestive of worsening bilateral pleural effusion Patient is on Sunday hemodialysis Nephrology consulted to help with dialysis Monitor volume status closely Monitor I's and O's, daily weight ECHO done Cardiology on case Left leg cellulitis Blood Cultures pending-NGTD Procalcitonin 0.57 Hold p.o. cephalexin Rocephin and doxycycline Dopplers neg for DVT Diarrhea --CT ABD: Compared to previous study, there is increasing bilateral pleural effusions and bilateral lower lobe atelectasis/collapse. No evidence for acute intra-abdominal or pelvic abnormality on these limited noncontrast images. Diverticulosis without evidence for diverticulitis. Hold stool softeners Stool studies to rule out infection--pending Repeat CXR Chronic troponin elevation In setting of CHF, CKD Trend cardiac enzymes Generalized weakness H/O Falls Ambulate dysfunction Fall precautions PT/OT when appropriate DC Cefepime in favor of E Coli being Pansensitive ESRD on HD Nephrology to help with dialysis management Valvular heart disease S/P AVR CAD S/P CABG Resume home medications as able Hyperlipidemia Resume statin as able DVT Px: Heparin SQ PCO2 52, BIPAP Code Status DNI/DNR Called son, he is now ELECTRICAL CAD DESIGNER, Morphine gtt when family arrives ROS-Offers no history Physical Exam Gen-Somnolent Declining Head-NCAT, EOMI, PERRLA, Anicteric Sclera Neck-Supple, No JVD, No Thyromegaly, No Masses, No LAD, No Bruits Lungs-Diminished Bilaterally, No Rales, No Rhonchi, No Wheezing, No Crepitus Chest-No S4, +S1, +S2, No S3, No Murmurs, No Rubs, No Gallops, No Ectopy Abdomen-Soft, Bowel Sounds Present, Non Tender, Non Distended, No Hepatomegaly, No Splenomegaly, No Palpable Masses, No Rebound, No Rigidity, No Guarding Musculoskeletal-Full Range of Motion Bilaterally, No CVAT Extremities-No Cyanosis, No Clubbing, No Edema Nuero-Cranial Nerves II-XII grossly intact, Motor WNL, DTRs WNL, Strength WNL, Non Focal Psych-Somnolent Admission and Anticipated Discharge Date Admission Date: September 15, 2021 Subjective Per nursing, patient grew more nonverbal over the course of yesterday and overnight. He remains nonverbal, garbling, Actively dying Results & Data Results & Data ([facility]) Vital Signs (Past 12 Hours) Vital Signs Temp Pulse Resp BP Pulse Ox 09/20/21 07:43 25 H 93 09/20/21 07:22 37.1 C 89 22 90/52 L 94 09/20/21 04:32 44 H 09/20/21 03:11 37.3 C 89 20 96/58 L 88 L 09/19/21 23:05 37.3 C 78 20 93/57 L 96 09/19/21 22:08 32 H
[2021-09-20] MEDS ORDERED: STAT IV Infusion **Titration per Protocol STA (11:05)
[2021-09-20] MEDS ORDERED: MoRPHine SULF/NSS 250 MG/250 ML BTL IV SCH (11:15)
[2021-09-21] MEDS ORDERED: HEPARIN SOD (PORCINE) 1000 UNIT/ML IV ONE (07:00)
[2021-09-21] MEDS ORDERED: SODIUM CHLORIDE 0.9% 1000ML 1,000 ML IV PRN (07:00)
--- NOTE | 2021-09-21 07:33 | Death Pronouncement Note ---
Date of Service September 21, 2021 Pronouncement Note Admission Date September 15, 2021 Date and Time of Date of : 09/21/21 Time of : 04:05 Additional Data Confirmation of : no pulse, no respirations, no heart sounds and pupils fixed and dilated Pronouncement Performed By: Attending Physician Family: at bedside Attending physician: Jasbir Zayas DO
--- NOTE | 2021-10-06 15:16 | Discharge Summary ---
Date of Service September 21, 2021 Admission HPI Per Admitting Provider Patient is an 86-year-old female with history of hypertension, hyperlipidemia, valvular heart disease S/P AVR, CAD S/P CABG, ischemic cardiomyopathy, end-stage renal disease on dialysis MWF, BPH, chronic anemia, symptomatic bradycardia, secondary hyperparathyroidism and other medical problems presents with history of confusion and generalized weakness which has been gradually worsening since 3 weeks duration. Patient unable to provide any history currently and is very lethargic. Most of the history is obtained from patient's at bedside, old records and ER physician. Patient's family states that patient refused to go to ED for further evaluation over the past 3 weeks as he was concerned that he will be placed in a alf. He was started on cephalexin for leg cellulitis by his PCP 3 days ago. Patient usually ambulates with a walker but for the past couple of days he is unable to ambulate and mostly sleeping. He was prescribed oxycodone for chronic pain secondary to arthritis but family informs that his last dose was about 1 week ago. Patient has chronic diarrhea as per family, which is slightly worse from baseline. Patient fell 3 weeks ago but no known history of head trauma, loss of consciousness as per family. Patient was evaluated by ERP ENGINEER at home today and was found to be hypoxic in 80s and so was recommended to go to ED for further evaluation. No known history of chest pain, SOB, cough, fever, chills, headache, nausea, vomiting, abdominal pain, blood in stools, dysuria, hematuria. Admission Exam Per Admitting Provider General Appearance:Moderately built and nourished, no apparent distress Head: normocephalic, Atraumatic Eyes: normal inspection, EOMI Neck: supple, Trachea midline Respiratory/Chest: Decreased breath sounds at bases, No accessory muscle use Cardiovascular: S1, S2, +murmur Abdomen/GI:Soft, Non tender, Bowel sounds present Extremities/Musculoskeletal:normal inspection, B/L Edema, LLE erythema Neurologic/Psych: Very Lethargic, grossly moves all extremities, unable to perform complete neuro exam Skin: normal color, warm Principal Diagnosis Acute metabolic encephalopathy Acute respiratory failure with hypoxia, hypercarbia B/L Pleural effusion Left leg cellulitis Diarrhea Chronic troponin elevation Generalized weakness H/O Falls Ambulate dysfunction ESRD on HD Valvular heart disease S/P AVR CAD S/P CABG Hyperlipidemia Discharge Exam See Below Discharge Data Allergies Allergy/AdvReac Type Severity Reaction Status Date / Time No Known Drug Allergies Allergy Unknown . Verified 09/15/21 15:10 Consultations 09/15/21 14:55 ED Decision to Admit Stat 09/15/21 18:32 Consult Cardiology Routine Consult Nephrology Routine 09/19/21 07:22 Consult Pulmonology Routine Ordered Studies 09/15/21 12:52 CT abd pelvis wo con Stat 09/15/21 12:53 CT head/brain wo con Stat 09/15/21 17:31 US venous doppler LE Routine Hospital Course (1) Confusion: Acute metabolic encephalopathy Likely multifactorial secondary to cellulitis, UTI, opioid use, hypercarbia-MS waxing and Waning --CT head:No acute intracranial hemorrhage, no evidence of acute territorial infarction or other acute intracranial disease process. --ABG today reveal Hypercarbia and acidemia Hold Opioids, Mirtazapine Normal Ammonia level Narcan Given BiPAP Neuro Checks Fall, aspiration precautions Continue supplemental oxygen as needed May eat UA Positive-Gram Neg Bacilli, +E Coli UTI- Rocephin and Doxy Acute respiratory failure with hypoxia, hypercarbia B/L Pleural effusion Volume overload: Acute on chronic systolic CHF, end-stage renal disease on hemodialysis Imaging studies suggestive of worsening bilateral pleural effusion Patient is on Sunday hemodialysis Nephrology consulted to help with dialysis Monitor volume status closely Monitor I's and O's, daily weight ECHO done Cardiology on case Left leg cellulitis Blood Cultures pending-NGTD Procalcitonin 0.57 Hold p.o. cephalexin Rocephin and doxycycline Dopplers neg for DVT Diarrhea --CT ABD: Compared to previous study, there is increasing bilateral pleural effusions and bilateral lower lobe atelectasis/collapse. No evidence for acute intra-abdominal or pelvic abnormality on these limited noncontrast images. Diverticulosis without evidence for diverticulitis. Hold stool softeners Stool studies to rule out infection--pending Repeat CXR Chronic troponin elevation In setting of CHF, CKD Trend cardiac enzymes Generalized weakness H/O Falls Ambulate dysfunction Fall precautions PT/OT when appropriate DC Cefepime in favor of E Coli being Pansensitive ESRD on HD Nephrology to help with dialysis management Valvular heart disease S/P AVR CAD S/P CABG Resume home medications as able Hyperlipidemia Resume statin as able DVT Px: Heparin SQ PCO2 52, BIPAP Code Status DNI/DNR Called son, he was made BAND BUILDER and placed on a Morphine gtt, He at 0405 on 09/21/21 ROS- Physical Exam Total Time Total Time Spent Total Time Spent (In Minutes): 45 mins Total Time Includes: Other Discharge Plan Discharge Items Patient Disposition: Discharge Diagnosis: Acute metabolic encephalopathy Acute respiratory failure with hypoxia, hypercarbia B/L Pleural effusion Left leg cellulitis Diarrhea Chronic troponin elevation Generalized weakness H/O Falls Ambulate dysfunction ESRD on HD Valvular heart disease S/P AVR CAD S/P CABG Hyperlipidemia Other Date/Time: 09/21/21 04:05
== END 2021-09-21 06:42 | disposition expired | DRG 291 ==
LOC: ED 12:39 → SUATTDRO 15:45 → 2S 15:45 → 3E 09-20 17:10